=== PATIENT | male | born 1970 | race Caucasian/White ===

== ENCOUNTER 2019-10-06 08:47 | Outpatient (RCR) | payer MEDICAID, SELFPAY | END 2019-10-14 00:01 | LOC: LAB 08:47 | PROVIDERS: Family Provider Family Medicine; Visit Provider Podiatrist Foot & Ankle Surgery | DX: E11.9 Type 2 diabetes mellitus without complications (principal); Z79.899 Other long term (current) drug therapy | CPT/HCPCS: 80053; 80202; 85025 ==

== ENCOUNTER → 2019-10-14 00:01 | Outpatient (RCR) | payer MEDICAID, SELFPAY | LOC: WOUND 13:31 | PROVIDERS: Family Provider Family Medicine; Visit Provider Thoracic Surgery (Cardiothoracic Vascular Surgery) | DX: E11.621 Type 2 diabetes mellitus with foot ulcer (principal); L97.522 Non-pressure chronic ulcer of other part of left foot with fat layer exposed; I96 Gangrene, not elsewhere classified | CPT/HCPCS: 11042; 87070; 87075; 87205; G0463 ==

== ENCOUNTER → 2019-10-16 16:52 | Outpatient (BNVA) | payer MEDICAID, SELFPAY | PROVIDERS: Family Provider Family Medicine; PCP Family Medicine; Visit Provider Podiatrist Foot & Ankle Surgery | DX: Z89.412 Acquired absence of left great toe (principal) | CPT/HCPCS: 73620; 73630 ==

== ENCOUNTER 2019-10-20 13:19 | Day surgery (SDC) | payer MEDICAID, SELFPAY ==
[2019-10-18 12:07] VITALS: BMI 34.4
[2019-10-20] VITALS (9 sets, daily range): BP systolic 124–173; BP diastolic 53–88; PULSE 47–61; RESP 12–18; TEMP 36.4–36.6; O2SAT 95–100
--- NOTE | 2019-10-20 14:04 | P.PN_ITS ---
Pre-Anesthetic Assessment Pre-Anesthetic Assessment: Height/Weight: Height 1.78 m Weight 108.862 kg Proposed Procedure: Operation Date: 10/20/19 15:00 Proposed Procedures p Debridement Left Foot(Left) - Bubba Leal MD Was Beta Jeff taken within 24 hours: N/A Last intake: yesterday at 1000 Social: Social History: No alcohol and No tobacco Exam: Pre-Anes Outpt Exam: alert, oriented x 3, clear to auscultation bilaterally and regular rate & rhythm Airway: MP: 3 Additional comments: edentulous Pulmonary: Pulmonary: None reported CV/HEM: CV/HEM: HTN : : None reported Hepatic: Hepatic: Hepatitis (hx of hep c) GI: GI: None reported Metabolic: Metabolic: DM and Morbid obesity Comments: on insulin, BG 240 Neuropsych: Neuropsych: None reported Anesthetic Plan: ASA status: III Anesthesia: General Risk of > 500 ml blood loss (7ml/kg in children): No Other Pertinent Information: patient states he's dry heaved at noon, does still feel nauseated. States no other symptoms, no history of unusual food intake, but did have seafood last night for dinner. PFSH Anesthesia PFSH: Family History (Updated 10/17/19 @ 08:28 by Elizabeth Davidson LPN) Denies family history of Diabetes CAD (coronary artery disease) Clotting disorder Dementia Hyperlipidemia Psychiatric illness Chronic kidney disease (CKD) Suicide Anesthesia complication Bleeding disorder Family history of premature coronary artery disease Lung disease Cancer Hypertension Stroke Social History (Updated 10/16/19 @ 16:23 by Elizabeth Davidson LPN) Smoking and tobacco status: never smoked Second hand smoke exposure: No Smoking risk assessment/counseling performed?: Yes Alcohol intake: former Desire information about alcohol rehabilitation?: No Counseling given: No Desire information about substance/drug rehabilitation?: No Counseling given: No Adopted: No Caregiver/support person: Yes Lives independently: Yes Household members: spouse and significant other Housing: House Marital status: Life Partner Number of children: 0 Highest education level completed: High School Graduate service: Yes Current occupational status: retired Pets and animals: Yes History of recent travel: No Current gender identity: Male Yolande/Denominational: None Agree to transfusion: Yes Financial difficulty paying for basics: Somewhat Hard Data Anesthesia Cardiac Studies: No Data to Display
[2019-10-20 14:17] LABS: Glucose Point of Care 240 mg/dL (70-110)
[2019-10-20] MEDS: sodium chloride 0.9% 1,000 ML 30 ML IV (14:40)
[2019-10-20] MEDS: ondansetron 2 mg/ML SDV 2 mL 4 MG IVP (14:54)
--- NOTE | 2019-10-20 16:18 | PM.HPUD ---
H&P update H&P Update: DATE OF SURGERY/PROCEDURE: 10/20/19 DATE H&P PERFORMED: 10/14/19 H&P UPDATE INFORMATION: H&P completed within last 30 days and No changes to prior documentation PREOP DIAGNOSIS: Diabetic foot infection left foot status post left great toe amputation PRIMARY INDICATION FOR PROCEDURE: Cellulitis and dehiscence of left foot wound PLANNED PROCEDURE: Operation Date: 10/20/19 15:00 Proposed Procedures p Debridement Left Foot(Left) - Bubba Leal MD Conscious Sedation: PHYSICAL EXAM: alert, oriented x 3, clear to auscultation bilaterally, regular rate & rhythm and operative site marked OTHER PERTINENT EXAM FINDINGS: Awake and alert. Lungs clear bilaterally. Cardiovascular exam was unremarkable. Dehiscence of left great toe amputation with exposed left second metatarsal articular surface. Will plan for surgical debridement and wound VAC placement. Full H&P Medications/Allergies: Current Medications: Current Medications Generic Name Dose Route Start Last Admin Trade Name Freq PRN Reason Stop Dose Admin Sodium Chloride 1,000 mls @ 30 ml s/hr 10/20/19 13:45 10/20/19 14:40 Sodium Chloride 0.9% IV 10/21/19 13:44 30 mls/hr .Q24H ELISE Administration Perinent History: Family History: Family History (Updated 10/17/19 @ 08:28 by Elizabeth Davidson LPN) Denies family history of Diabetes CAD (coronary artery disease) Clotting disorder Dementia Hyperlipidemia Psychiatric illness Chronic kidney disease (CKD) Suicide Anesthesia complication Bleeding disorder Family history of premature coronary artery disease Lung disease Cancer Hypertension Stroke Social History: Social History Smoking and tobacco status: never smoked Second hand smoke exposure: No Smoking risk assessment/counseling performed?: Yes Alcohol intake: former Desire information about alcohol rehabilitation?: No Counseling given: No Desire information about substance/drug rehabilitation?: No Counseling given: No Adopted: No Caregiver/support person: Yes Lives independently: Yes Household members: spouse and significant other Housing: House Marital status: Life Partner Number of children: 0 Highest education level completed: High School Graduate service: Yes Current occupational status: retired Pets and animals: Yes History of recent travel: No Current gender identity: Male Yolande/Anglican: None Agree to transfusion: Yes Financial difficulty paying for basics: Somewhat Hard
[2019-10-20] MEDS: ceFAZolin 1,000 mg SDV 1000 MG IRRIGATION (17:24)
--- NOTE | 2019-10-20 17:28 | PM.OP ---
Operative Report Post-Operative Note: Date of procedure: 10/20/19 Preop Diagnosis: Left foot diabetic infection and dehiscence of left great toe amputation site Post-op diagnosis: same Procedure Done: Debridement and lavage of the left foot great toe amputation site with bone debridement. Tissue and bone cultures Placement of wound VAC Specimens removed/disposition: Soft tissue culture from left foot wound Bone culture from left first metatarsal articular head Surgeon: Bubba Leal Anesthesia: general Estimated blood loss (mL): 30 IV fluids (mL): 400 Complications: None Condition: stable Disposition: PACU Operative Report: Brief History: Mr. Rosales is a 49-year-old gentleman with longstanding diabetes mellitus and a past history for numerous foot infections bilaterally he has recent undergone debridement and subsequent left great toe amputation by Dr. Cali from podiatry. He separately had breakdown of this amputation area, as he ambulates quite freely. I had seen him originally in wound care clinic and after review by Dr. Mukherjee of his wound, he concurred that debridement was indicated without attempt at delayed primary closure. Details the risk of debridement were carefully and frankly discussed including the potential need for future surgeries and possible more major amputations. All questions were answered. Proper consents were reviewed and signed. Procedure: Mr. Rosales was taken operating room theater and underwent general endotracheal anesthesia. His entire left foot was sterilely prepped and draped. Initially sharp debridement was performed utilizing Metzenbaum scissors and #10 scalpel blade for adequate exposure of this dehisced amputation site with some tunneling extending medially and dorsally. The articular surface of the first metatarsal was clearly visible. After soft tissue sampling of the region, for culture, I then performed debridement of the articular head of the first metatarsal utilizing bone rongeur. Bone specimens were collected for culture as well. Cautery was utilized as minimal as possible. After careful debridement, irrigation was performed with a large volume of saline solution. Hemostasis was confirmed. Wound VAC dressing was then applied and connected to 125mmHg suction. He was awakened from anesthesia and extubated without difficulty. He tolerated procedure well. He was taken to the PACU in stable condition. He will be discharged to home with home health services which have been previously arranged, and will follow-up in wound care clinic Coding Level of Care Code Acute Heavy Equipment Plumbing Supervisor for Davina Whelan
[2019-10-20 18:27] LABS: Glucose Point of Care 214 mg/dL (70-110)
== END 2019-10-20 18:45 | disposition home or self-care (01) ==
PROVIDERS: Family Provider Family Medicine; PCP Family Medicine; Visit Provider Thoracic Surgery (Cardiothoracic Vascular Surgery)
PROC: (CPT 11044; principal; 2019-10-20 14:50)
DX: E11.621 Type 2 diabetes mellitus with foot ulcer (principal); I10 Essential (primary) hypertension; Z86.19 Personal history of other infectious and parasitic diseases; E66.01 Morbid (severe) obesity due to excess calories; Z68.34 Body mass index [BMI] 34.0-34.9, adult; Z79.4 Long term (current) use of insulin
CPT/HCPCS: 11044; 36415; 36416; 82962; 87070; 87077; 87176; 87186; 87205; 96374; J0330; J0690; J2405; J2704; J3010; J3490; J7030

== ENCOUNTER 2019-10-21 16:58 | Emergency (ER) | payer MEDICAID, SELFPAY ==
[2019-10-21 17:34] VITALS: BP 147/89; PULSE 68; RESP 18; TEMP 36.3; O2SAT 98; BMI 34.4
[2019-10-21 18:30] LABS: Basophils # 0.1 10^3/uL (0.0-0.1); Basophils % 0.9 %; Eosinophils # 0.2 10^3/uL (0.0-0.8); Eosinophils % 2.6 %; Hematocrit 40.6 % (42.0-52.0); Hemoglobin 13.3 g/dL (11.7-16.6); Lymphocytes # 1.7 10^3/uL (0.8-4.8); Lymphocytes % 21.4 %; Mean Corpuscular HGB Conc 32.8 g/dL (30.0-36.0); Mean Corpuscular Hemoglobin 26.5 pg (28.0-34.0); Mean Corpuscular Volume 80.9 fL (80-94); Mean Platelet Volume 10.5 fL (7.4-10.4); Monocytes # 0.4 10^3/uL (0.2-0.9); Monocytes % 4.6 %; Neutrophils # 5.5 10^3/uL (1.8-7.7); Neutrophils % 70.2 %; Nucleated Red Blood Cells % 0 %; Platelet Count 269 10^3/cmm (130-400); Red Blood Count 5.02 10^6/uL (4.1-5.3); Red Cell Distribution Width 13.8 % (12.1-15.1); White Blood Count 7.8 10^3/uL (4.0-10.0)
[2019-10-21 18:41] LABS: Alanine Aminotransferase 11 U/L (0-41); Albumin Level 4.5 g/dL (3.5-5.2); Alkaline Phosphatase 91 IU/L (40-130); Anion Gap 17.3 (5-19); Aspartate Amino Transferase 12 U/L (0-40); Blood Urea Nitrogen 13 mg/dL (6-20); Calcium 10.1 mg/Dl (8.6-10.0); Carbon Dioxide 26 mmol/L (22-29); Chloride 98 mmol/L (98-107); Globulin 3.8 g/dL (1.3-4.6); Glomerular Filtration Rate 70.6 mL/min (90-130); Glucose 247 mg/dL (74-109); Lipase 25 U/L (13-60); Potassium 4.3 mmol/L (3.5-5.1); Sodium 137 mmol/L (136-145); Total Bilirubin 0.4 mg/dL (0.15-1.2); Total Protein 8.3 g/dL (6.6-8.7)
--- NOTE | 2019-10-21 20:57 | XR_ITS ---
WS: [id number] ABDOMEN 1 VIEW(S) HISTORY: n/v COMPARISON: 01/04/2016 Mild increase in distention of the central small bowel loops. There is still air throughout the colon . No suspicious calcifications or masses. No bone abnormality. XR/XR KUB portable [id number] IMPRESSION: Suspect mild postoperative ileus versus very early and incomplete small bowel o bstruction. If symptoms persist recommend follow-up CT of the abdomen and pelvi s.
--- NOTE | 2019-10-21 20:59 | ED_ITS ---
HPI - General Adult General: Chief complaint: General Medical Stated complaint: post op problems Time Seen by Provider: 10/21/19 20:53 History of Present Illness: HPI narrative: Patient complains of nausea vomiting last 20 hours that has not kept anything at all down today he does have a PICC line in. Says that he is taking medication as prescribed. He states that Zofran is not working for him. Taking 8 tramadol a day +6-8 hydrocodone's complaint: n/v Onset (ago): hour(s) Relieving factors: none Exacerbating factors: none Associated symptoms: Reports nausea; Deny chest pain, dyspnea, headache(s), rash or vomiting Review of Systems Narrative: recent amputation left foot big toe, decreased BM's Const: Denies: fever, chills or body aches Eyes: Denies: change in vision or blurry vision ENMT: Denies: throat pain or nasal congestion Card: Denies: chest pain or shortness of breath on exertion Resp: Denies: shortness of breath, productive cough or non-productive cough GI: Reports: nausea and cramping; Denies: vomiting, vomiting blood, coffee grounds in vomit, difficulty swallowing, heartburn/indigestion, feeling full early, excessive passing of gas, painful bowel movements or rectal pain : Denies: difficulty urinating Musc: Denies: extremity pain Skin/Breast: Denies: rash Neuro: Denies: headache Psych: Denies: anxiety or depression North/Lymph: Denies: easy bruising PFSH ED PFSH: Statuses (acute, chronic, etc) shown below reflect problem list status as previously entered and may not be historically accurate Medical History (Updated 10/21/19 @ 22:42 by ANTONIO Tolbert) History of amputation of left great toe (Resolved) Wound dehiscence, surgical (Acute) Family History (Updated 10/17/19 @ 08:28 by Elizabeth Davidson LPN) Denies family history of Diabetes CAD (coronary artery disease) Clotting disorder Dementia Hyperlipidemia Psychiatric illness Chronic kidney disease (CKD) Suicide Anesthesia complication Bleeding disorder Family history of premature coronary artery disease Lung disease Cancer Hypertension Stroke Social History (Updated 10/16/19 @ 16:23 by Elizabeth Davidson LPN) Smoking and tobacco status: never smoked Second hand smoke exposure: No Smoking risk assessment/counseling performed?: Yes Alcohol intake: former Desire information about alcohol rehabilitation?: No Counseling given: No Desire information about substance/drug rehabilitation?: No Counseling given: No Adopted: No Caregiver/support person: Yes Lives independently: Yes Household members: spouse and significant other Housing: House Marital status: Life Partner Number of children: 0 Highest education level completed: High School Graduate service: Yes Current occupational status: retired Pets and animals: Yes History of recent travel: No Current gender identity: Male Yolande/Sabianist: None Agree to transfusion: Yes Financial difficulty paying for basics: Somewhat Hard Physical Exam Const: COMMON NORMALS: no apparent distress, average body habitus and oriented x3 HENMT: COMMON NORMALS: normocephalic HEAD & SCALP: normal to inspection and normocephalic FACE & SINUS: normal facial exam Eye: COMMON NORMALS: conjunctivae normal GENERAL EYE: normal appearance of both eyes CONJUNCTIVA: Yes conjunctivae normal Neck/C-Spine: COMMON NORMALS: no JVD Chest: COMMONS NORMALS: inspection of chest normal Resp: COMMON NORMALS: normal respiratory effort and clear to auscultation bilaterally AUSCULTATION: clear to auscultation bilaterally Cardio: COMMON NORMALS: no JVD, regular rate and regular rhythm RATE: regular rate RHYTHM: regular rhythm GI: COMMON NORMALS: normal to inspection, nondistended, normoactive bowel sounds Extremity: COMMON NORMALS: normal to inspection and full ROM NARRATIVE EXTREMITY EXAM: left foot with wound vac, LE is warm, not swollen Neuro: COMMON NORMALS: oriented x3 Course Vital Signs: Vital signs: Vital Signs Temperature 97.4 F L 10/21/19 17:34 Pulse Rate 61 10/21/19 22:21 Respiratory Rate 18 10/21/19 22:21 Blood Pressure 155/79 10/21/19 22:21 Pulse Oximetry 98 10/21/19 22:21 MDM - General Adult Lab Data: Labs: Lab Results 10/21/19 10/21/19 Range/Units 08:05 08:05 WBC 7.8 (4.0-10.0) 10^3/ uL RBC 5.02 (4.1-5.3) 10^6/u L Hgb 13.3 (11.7-16.6) g/dL Hct 40.6 L (42.0-52.0) % MCV 80.9 (80-94) fL MCH 26.5 L (28.0-34.0) pg MCHC 32.8 (30.0-36.0) g/dL RDW 13.8 (12.1-15.1) % Plt Count 269 (130-400) 10^3/c mm MPV 10.5 H (7.4-10.4) fL Neut % (Auto) 70.2 % Lymph % (Auto) 21.4 % [place] % (Auto) 4.6 % Eos % (Auto) 2.6 % Baso % (Auto) 0.9 % Neut # (Auto) 5.5 (1.8-7.7) 10^3/u L Lymph # (Auto) 1.7 (0.8-4.8) 10^3/u L [place] # (Auto) 0.4 (0.2-0.9) 10^3/u L Eos # (Auto) 0.2 (0.0-0.8) 10^3/u L Baso # (Auto) 0.1 (0.0-0.1) 10^3/u L Nucleated RBC % (a uto) 0 % Nucleated RBCs # 0.0 /100WBC Sodium 137 (136-145) mmol/L Potassium 4.3 (3.5-5.1) mmol/L Chloride 98 (98-107) mmol/L Carbon Dioxide 26 (22-29) mmol/L Anion Gap 17.3 (5-19) BUN 13 (6-20) mg/dL Creatinine 1.1 (0.7-1.2) mg/dL GFR Calculation 70.6 L (90-130) mL/min Glucose 247 H (74-109) mg/dL Calcium 10.1 H (8.6-10.0) mg/Dl Total Bilirubin 0.4 (0.15-1.2) mg/dL AST 12 (0-40) U/L ALT 11 (0-41) U/L Alkaline Phosphata se 91 (40-130) IU/L Total Protein 8.3 (6.6-8.7) g/dL Albumin 4.5 (3.5-5.2) g/dL Globulin 3.8 (1.3-4.6) g/dL Lipase 25 (13-60) U/L Discharge Plan Discharge Patient Disposition: Home, Self-Care Clinical Impression: Constipation due to opioid therapy Condition: Stable Prescriptions: New docusate sodium [Dulcolax Stool Softener (dss)] 100 mg capsule 100 mg PO TID Qty: 20 RF: 0 mineral oil [Fleet Mineral Oil] Enema 118 ml SC DAILY PRN (Reason: constipation) Qty: 135 RF: 0 No Action tramadol 50 mg tablet 50 mg PO Q4H PRN (Reason: Pain) RF: 0 aspirin [Adult Aspirin Regimen] 81 mg tablet,delayed release (DR/EC) 81 mg PO ONCE RF: 0 atorvastatin [Lipitor] 10 mg tablet 10 mg PO ONCE RF: 0 metformin 1,000 mg tablet extended release 24hr 1,000 mg PO BID RF: 0 hydrocodone-acetaminophen [[place]] 10-325 mg tablet 1 tab PO Q4H PRN (Reason: Pain) RF: 0 vancomycin 1.5 gram recon soln 1 gm IV Q12H RF: 0 ceftriaxone 1 gram recon soln 500 mg IM Q12H RF: 0 cefepime 2 mg IV DAILY RF: 0 Referrals: Bernard Samson MD [Primary Care Provider] - Discharge Diet: Full LIquid Discharge Activity: Increase activity as tolerated Patient Instructions: Constipation (ED) Activity Restrictions/Additional Instructions: Obtain mineral oil Fleet enemas [id number] at local store and also stool softeners and laxatives [id number] at local store. Drink plenty of water. Increase activity. Decrease pain medication usage. Follow-up with family doctor. Return here if problems worsen. Coding Level of Care Code ED Riding Coach for Davina Fwelizabeth Exam Problem Focused
[2019-10-21 21:01] VITALS: BP 126/76; PULSE 58; RESP 16; O2SAT 98
[2019-10-21] MEDS: ondansetron 2 mg/ML SDV 2 mL 8 MG IVP (21:18)
[2019-10-21] MEDS: sodium chloride 0.9% 1,000 ML 999 ML IV (21:18)
[2019-10-21 22:21] VITALS: BP 155/79; PULSE 61; RESP 18; O2SAT 98
[2019-10-21 22:48] VITALS: BP 126/91; PULSE 61; RESP 14; O2SAT 95
== END 2019-10-21 22:52 | disposition home or self-care (01) ==
PROVIDERS: Emergency Medicine; Emergency Provider Nurse Practitioner Family; Family Provider Family Medicine; PCP Family Medicine
DX: K59.03 Drug induced constipation (principal); T40.2X5A Adverse effect of other opioids, initial encounter; Z79.82 Long term (current) use of aspirin; Z79.84 Long term (current) use of oral hypoglycemic drugs
CPT/HCPCS: 36415; 74018; 80053; 83690; 85025; 96360; 96374; 96375; 99281; J2405; J7030

== ENCOUNTER 2019-10-27 12:19 | Outpatient (CLI) | payer MEDICAID, SELFPAY ==
[2019-10-27 13:12] LABS: Alanine Aminotransferase 10 U/L (0-41); Albumin Level 4.4 g/dL (3.5-5.2); Alkaline Phosphatase 82 IU/L (40-130); Aspartate Amino Transferase 12 U/L (0-40); Blood Urea Nitrogen 20 mg/dL (6-20); Calcium 9.9 mg/Dl (8.6-10.0); Carbon Dioxide 27 mmol/L (22-29); Chloride 100 mmol/L (98-107); Globulin 3.5 g/dL (1.3-4.6); Glomerular Filtration Rate 78.8 mL/min (90-130); Glucose 217 mg/dL (74-109); Sodium 138 mmol/L (136-145); Total Bilirubin 0.3 mg/dL (0.15-1.2); Total Protein 7.9 g/dL (6.6-8.7); Vancomycin Trough 13.7 ug/mL (10-15)
[2019-10-27 13:31] LABS: Basophils # 0.1 10^3/uL (0.0-0.1); Basophils % 1.8 %; Eosinophils # 0.6 10^3/uL (0.0-0.8); Eosinophils % 8.1 %; Hematocrit 41.1 % (42.0-52.0); Lymphocytes # 2.1 10^3/uL (0.8-4.8); Lymphocytes % 30.8 %; Mean Corpuscular HGB Conc 31.6 g/dL (30.0-36.0); Mean Corpuscular Hemoglobin 26.1 pg (28.0-34.0); Mean Corpuscular Volume 82.4 fL (80-94); Mean Platelet Volume 11.2 fL (7.4-10.4); Monocytes # 0.4 10^3/uL (0.2-0.9); Monocytes % 6.1 %; Neutrophils # 3.6 10^3/uL (1.8-7.7); Neutrophils % 52.9 %; Nucleated Red Blood Cells % 0 %; Platelet Count 264 10^3/cmm (130-400); Red Blood Count 4.99 10^6/uL (4.1-5.3); Red Cell Distribution Width 13.9 % (12.1-15.1); White Blood Count 6.8 10^3/uL (4.0-10.0)
== END 2019-10-27 12:20 | disposition home or self-care (01) ==
PROVIDERS: Family Provider Family Medicine; PCP Family Medicine; Visit Provider Podiatrist Foot & Ankle Surgery
DX: Z79.2 Long term (current) use of antibiotics (principal)
CPT/HCPCS: 80053; 80202; 85025

== ENCOUNTER 2019-11-03 12:35 | Outpatient (CLI) | payer MEDICAID, SELFPAY ==
[2019-11-03 13:12] LABS: Anion Gap 15.7 (5-19); Blood Urea Nitrogen 31 mg/dL (6-20); Calcium 9.5 mg/Dl (8.6-10.0); Carbon Dioxide 26 mmol/L (22-29); Chloride 98 mmol/L (98-107); Glomerular Filtration Rate 63.8 mL/min (90-130); Glucose 288 mg/dL (74-109); Potassium 4.7 mmol/L (3.5-5.1); Sodium 135 mmol/L (136-145); Vancomycin Trough 13.3 ug/mL (10-15)
[2019-11-03 13:39] LABS: Prealbumin 24.6 mg/dL (20-40)
== END 2019-11-03 12:36 | disposition home or self-care (01) ==
LOC: LAB 12:38
PROVIDERS: Family Provider Family Medicine; PCP Family Medicine; Visit Provider Nurse Practitioner Family
DX: M86.9 Osteomyelitis, unspecified (principal); E11.622 Type 2 diabetes mellitus with other skin ulcer
CPT/HCPCS: 80048; 80202; 84134

== ENCOUNTER → 2019-11-05 13:16 | Outpatient (BNVA) | payer MEDICAID, SELFPAY | PROVIDERS: Family Provider Family Medicine; PCP Family Medicine; Visit Provider Anesthesiology | DX: R53.82 Chronic fatigue, unspecified (principal); M25.511 Pain in right shoulder; M25.512 Pain in left shoulder; G62.9 Polyneuropathy, unspecified; G25.81 Restless legs syndrome; Z79.891 Long term (current) use of opiate analgesic | CPT/HCPCS: 99214 ==

== ENCOUNTER 2019-11-06 14:32 | Outpatient (CLI) | payer MEDICAID, SELFPAY ==
--- NOTE | 2019-11-06 15:59 | XRR_ITS ---
PROCEDURE INFORMATION: Exam: XR Chest, 2 Views Exam date and time: 11/06/2019 4:09 PM Age: 49 years old Clinical indication: Condition or disease; Lung condition and disease; Other: Bullous; Additional info: Bullous disease diabetes, respiratory disorder TECHNIQUE: Imaging protocol: XR of the chest Views: 2 views. COMPARISON: CR Chest 1 [place] [id number] 09/30/2019 9:25 AM FINDINGS: Tubes, catheters and devices: There is a left subclavian PICC line unchanged in position with tip in the superior vena cava. Lungs: Unremarkable. No consolidation. Pleural space: Unremarkable. No pleural effusion. No pneumothorax. Heart/Mediastinum: Unremarkable. No cardiomegaly. Bones/joints: Unremarkable. XR/XR chest 2V* [id number] IMPRESSION: 1. PICC line continues in good position. 2. The lungs are clear.
--- NOTE | 2019-11-06 16:02 | ECG_ITS ---
Measurements Intervals [place] Rate: 55 P: 6 WY: 179 QRS: -1 QRSD: 86 T: 42 QT: 413 QTc: 396 SINUS BRADYCARDIA Compared to ECG 11/22/2018 14:02:13 Sinus rhythm no longer present Electronically Signed On 11-07-2019 15:36:05 CAT CRACKER OPERATOR by Subhash Barkley M.D. [email or web address]
== END 2019-11-06 14:33 | disposition home or self-care (01) ==
LOC: RT 14:36
PROVIDERS: Family Provider Family Medicine; PCP Family Medicine; Visit Provider Thoracic Surgery (Cardiothoracic Vascular Surgery)
DX: Z13.6 Encounter for screening for cardiovascular disorders (principal); Z13.83 Encounter for screening for respiratory disorder NEC; E11.9 Type 2 diabetes mellitus without complications; Z95.828 Presence of other vascular implants and grafts
CPT/HCPCS: 71046; 93005

== ENCOUNTER 2019-11-10 06:00 | Outpatient (CLI) | payer MEDICAID, SELFPAY ==
[2019-11-10 12:25] LABS: Blood Urea Nitrogen 10 mg/dL (6-20); Calcium 9.6 mg/dL (8.5-10.5); Carbon Dioxide 26 mmol/L (22-29); Chloride 102 mmol/L (98-107); Glomerular Filtration Rate 70.6 mL/min (90-130); Glucose 211 mg/dL (74-109); Osmolality Calculated 288 mOsm/kg (285-295); Sodium 138 mmol/L (136-145)
== END 2019-11-10 06:01 | disposition home or self-care (01) ==
PROVIDERS: Family Provider Family Medicine; PCP Family Medicine; Visit Provider Family Medicine
DX: L03.116 Cellulitis of left lower limb (principal)
CPT/HCPCS: 80048; 80202

== ENCOUNTER 2019-11-12 07:52 | Outpatient (RCR) | payer MEDICAID, SELFPAY ==
[2019-10-20 10:26] LABS: Basophils # 0.1 10^3/uL (0.0-0.1); Basophils % 1.5 %; Eosinophils # 0.7 10^3/uL (0.0-0.8); Eosinophils % 11.4 %; Hemoglobin 12.5 g/dL (11.7-16.6); Lymphocytes # 1.9 10^3/uL (0.8-4.8); Mean Corpuscular HGB Conc 32.1 g/dL (30.0-36.0); Mean Corpuscular Hemoglobin 27.2 pg (28.0-34.0); Mean Platelet Volume 11.1 fL (7.4-10.4); Monocytes # 0.4 10^3/uL (0.2-0.9); Neutrophils # 2.9 10^3/uL (1.8-7.7); Neutrophils % 48.8 %; Nucleated Red Blood Cells % 0 %; Platelet Count 242 10^3/cmm (130-400); Red Blood Count 4.59 10^6/uL (4.1-5.3); Red Cell Distribution Width 14.2 % (12.1-15.1)
[2019-10-20 10:59] LABS: Alanine Aminotransferase 13 U/L (0-41); Albumin Level 4.2 g/dL (3.5-5.2); Alkaline Phosphatase 85 IU/L (40-130); Anion Gap 13.3 (5-19); Aspartate Amino Transferase 13 U/L (0-40); Blood Urea Nitrogen 17 mg/dL (6-20); Calcium 9.7 mg/Dl (8.6-10.0); Carbon Dioxide 30 mmol/L (22-29); Chloride 99 mmol/L (98-107); Globulin 3.7 g/dL (1.3-4.6); Glomerular Filtration Rate 70.6 mL/min (90-130); Glucose 246 mg/dL (74-109); Potassium 4.3 mmol/L (3.5-5.1); Sodium 138 mmol/L (136-145); Total Bilirubin 0.4 mg/dL (0.15-1.2); Total Protein 7.9 g/dL (6.6-8.7); Vancomycin Trough 17.4 ug/mL (10-15)
--- NOTE | 2019-11-10 16:27 | USCV_ITS ---
Braxton Rosales Age: 49 Gender: M : 1970 Exam Date: 11/10/2019 16:18 Ordering Phys: Violeta Aceves Technologist: Connie Mendoza [place] [facility] [place]: non healing ulcer RIGHT LEFT Brachial 147.00 mmHg Brachial mmHg Pressure (mmHg) Waveform Pressure (mmHg) Waveform FRONT OFFICE ASSISTANT 191.00 DPA 181.00 Ankle/Brachial Index 1.30 FINDINGS Normal resting VALERY on the left side Normal PVR waveform on the left side CONCLUSIONS No significant arterial obstruction, based on the above findings Dr Subhash Barkley MD FACC (Electronically Signed) Final Date: 11 November 2019 18:49 S
== END 2019-11-14 23:59 | disposition home or self-care (01) ==
LOC: WOUND 07:52
PROVIDERS: Podiatrist Foot & Ankle Surgery; Family Provider Family Medicine; PCP Family Medicine; Visit Provider Nurse Practitioner Family
DX: E11.621 Type 2 diabetes mellitus with foot ulcer (principal); L97.523 Non-pressure chronic ulcer of other part of left foot with necrosis of muscle; M86.671 Other chronic osteomyelitis, right ankle and foot
CPT/HCPCS: 11042; 11044; 80053; 80202; 85025; 93922; 97605; G0277; L3260

== ENCOUNTER 2019-12-08 08:15 | Emergency (ER) | payer MEDICAID, SELFPAY ==
[2019-12-08 08:20] VITALS: BP 161/87; PULSE 75; RESP 18; TEMP 36.4; O2SAT 97; BMI 35.9
--- NOTE | 2019-12-08 08:28 | USCV_ITS ---
Braxton Rosales Age: 49 Gender: M : 1970 Exam Date: 12/08/2019 08:46 Ordering Phys: Bubba Avelar Technologist: Carla Thompson Exam Location: [facility] – [place] Indication: RT LOWER LEG RED AND WARM. HISTORY: Rt lower leg is red and warm PROCEDURES: Venous duplex imaging was performed in only the right lower extremity. The following venous structures were evaluated: common femoral vein, profunda vein, proximal portion of the greater saphenous vein, superficial femoral vein, and the popliteal vein. In addition, the posterior tibial and peroneal trunk were evaluated. Serial compression, augmentation maneuvers, and spectral Doppler flow evaluation were performed. FINDINGS: No DVT seen in any vessel examined Lymph node seen rt groin area CONCLUSIONS No evidence of right lower extremity DVT. Enlarged lymph node R groin nonspecific but may be reactive measuring 4.1 x 1.1cm Jewel aPrdo MD (Electronically Signed) Final Date: 08 December 2019 09:22 S
--- NOTE | 2019-12-08 08:34 | W.ED.EXTPRO ---
HPI - Extremity Problem General: Chief complaint: Extremity Problem,Nontraumatic Stated complaint: poss blood clot rt leg Time Seen by Provider: 12/08/19 08:34 Source: patient Mode of arrival: ambulatory Limitations: no limitations History of Present Illness: HPI Narrative: 49-year-old male patient was sent here from the wound clinic for concerns of redness and swelling to the right lower extremity. Concern for DVT was noted. Patient states the pain is not that significant. Patient has no history of blood clots. Patient denies any fever chills nausea or vomiting. Patient does have chronic wound ulcers to bilateral feet and diabetes mellitus. Review of Systems General: Reports: 10 or more systems reviewed and unremarkable except in HPI and below Musc: Reports: other (redness swelling right lower extremity) PFSH ED PFSH: Social History Smoking and tobacco status: never smoked Second hand smoke exposure: No Alcohol intake: former Desire information about alcohol rehabilitation?: No Counseling given: No Adopted: No Caregiver/support person: Yes Lives independently: Yes Household members: spouse and significant other Housing: House Marital status: Life Partner Number of children: 0 Highest education level completed: High School Graduate service: Yes Current occupational status: retired Pets and animals: Yes History of recent travel: No Current gender identity: Male Yolande/Church: None Agree to transfusion: Yes Financial difficulty paying for basics: Somewhat Hard Physical Exam Const: COMMON NORMALS: no apparent distress and oriented x3 GENERAL APPEARANCE: cooperative HENMT: COMMON NORMALS: normocephalic, external ears normal, EAC's normal, TM's normal bilaterally and external nose normal HEAD & SCALP: normal to inspection and normocephalic FACE & SINUS: normal facial exam NOSE: external nose normal GENERAL EAR: hearing not grossly impaired EXTERNAL EAR: Yes external ears normal EXTERNAL AUDITORY CANAL: EAC's normal TYMPANIC MEMBRANE: TM's normal bilaterally MOUTH: oral and palatal mucosa normal THROAT: posterior oropharynx normal Eye: COMMON NORMALS: PERRL and EOMs intact bilaterally PUPIL: Yes PERRL Neck/C-Spine: COMMON NORMALS: full ROM and no lymphadenopathy Lymph: LYMPHATIC: no lymphedema noted Chest: COMMONS NORMALS: inspection of chest normal and palpation of chest normal Resp: COMMON NORMALS: normal respiratory effort and clear to auscultation bilaterally AUSCULTATION: clear to auscultation bilaterally Cardio: COMMON NORMALS: regular rate and regular rhythm RATE: regular rate RHYTHM: regular rhythm GI: COMMON NORMALS: normal to inspection, nondistended, normoactive bowel sounds and non-tender : COMMON NORMALS: Yes no CVA tenderness BLADDER/KIDNEY EXAM: Yes no CVA tenderness Back/Pelvis: COMMON NORMALS: no CVA tenderness and thoracic and lumbar spine normal to inspection Extremity: COMMON NORMALS: normal to inspection NARRATIVE EXTREMITY EXAM: redness right lower extremity GENERAL: Yes edema (bilateral lower legs) Neuro: COMMON NORMALS: oriented x3, moves all extremities and no focal motor deficits Psych: COMMON NORMALS: mental status grossly normal and cooperative Skin: COMMON NORMALS: no rashes or lesions noted GENERAL SKIN EXAM: no rashes or lesions noted Course Vital Signs: Vital signs: Vital Signs Temperature 97.5 F L 12/08/19 08:20 Pulse Rate 75 12/08/19 08:20 Respiratory Rate 18 12/08/19 08:20 Blood Pressure 161/87 12/08/19 08:20 Pulse Oximetry 97 12/08/19 08:20 MDM - Extremity (Nontraumatic) MDM Narrative: Medical decision making narrative: Patient comes in today with complaints of redness and tenderness to the right lower extremity. Patient was seen at wound care clinic in referred to the ER for evaluation of blood clot. Exam notes some erythema to the gaiter areas of the right lower extremity. Pulses are intact in lower extremity. Patient does have chronic wound ulcer to the great toe on the same extremity. Patient does have a history of osteomyelitis and previous debridement and digit amputations. Patient is diabetic. Differential diagnosis includes DVT, cellulitis, peripheral vascular disease. Ultrasound of the extremity noted no DVT. Notes some lymphadenopathy to the extremity. Will treat for cellulitis with Augmentin and Bactrim. Patient was recommended to continue care plan for wound ulcers wound care clinic and to follow-up as directed. Discharge Plan Discharge Patient Disposition: Home, Self-Care Clinical Impression: Cellulitis Qualifiers: Site of cellulitis: extremity Site of cellulitis of extremity: lower extremity Laterality: right Qualified Code(s): L03.115 - Cellulitis of right lower limb Condition: Stable Prescriptions: New Augmentin 875-125 mg tablet 1 tab PO BID Qty: 20 RF: 0 Bactrim DS 800-160 mg tablet 1 tab PO BID 10 Days Qty: 20 RF: 0 Discontinued vancomycin 1.5 gram recon soln 1 gm IV Q12H RF: 0 ceftriaxone 1 gram recon soln 500 mg IM Q12H RF: 0 amoxicillin-pot clavulanate 875-125 mg tablet RF: 0 cefepime 2 mg IV DAILY RF: 0 No Action nortriptyline 50 mg capsule 100 mg PO .HS 30 Days Qty: 60 RF: 1 pregabalin 300 mg capsule 300 mg PO BID 30 Days Qty: 60 RF: 1 ropinirole 1 mg tablet 1 mg PO QDAY 30 Days Qty: 30 RF: 0 hydrocodone-acetaminophen [[place]] 10-325 mg tablet 1 tab PO .5 TIMES PRN (Reason: Pain) 30 Days Qty: 150 RF: 0 tramadol 50 mg tablet 100 mg PO QID PRN (Reason: Pain) 30 Days Qty: 240 RF: 1 aspirin [Adult Aspirin Regimen] 81 mg tablet,delayed release (DR/EC) 81 mg PO ONCE RF: 0 atorvastatin [Lipitor] 10 mg tablet 10 mg PO ONCE RF: 0 metformin 1,000 mg tablet extended release 24hr 1,000 mg PO BID RF: 0 Lyrica 300 mg Capsule 300 mg PO BID RF: 0 Fleet Mineral Oil Enema 118 ml [place] DAILY PRN (Reason: constipation) Qty: 135 RF: 0 Dulcolax Stool Softener (dss) 100 mg capsule 100 mg PO TID Qty: 20 RF: 0 Discharge Orders: Discharge Order (Routine); Ordered 12/08/19 Ordered By: Bubba Avelar Referrals: Bernard Samson MD [Primary Care Provider] - Discharge Diet: Usual diet Discharge Activity: Resume usual activity Patient Instructions: Cellulitis (ED) Activity Restrictions/Additional Instructions: Continue with routine care Follow-up with wound care for continued treatment of foot ulcer Return to ER for high fever, or uncontrolled pain Coding Level of Care Code ED International Exchange Coordinator for Davina Whelan Exam Comprehensive
--- NOTE | 2019-12-08 08:43 | PC.NURSE ---
RLE is noted to be warm and swollen. Right great toe also noted to have a wound with purulent drainage noted. Patient reports popping a blister on the outside/bottom of his toe and has been dressing this with gauze and tape. Ultrasound is currently present at bedside.
[2019-12-08 09:13] VITALS: BP 131/65; PULSE 65; RESP 18; O2SAT 97
--- NOTE | 2019-12-08 09:15 | PC.NURSE ---
Soiled dressing changed on right great toe prior to discharge. Area rinsed with sterile saline, telfa applied and secured with sandy dressing and paper tape.
== END 2019-12-08 09:17 | disposition home or self-care (01) ==
PROVIDERS: Emergency Provider Nurse Practitioner Family; Family Provider Family Medicine; PCP Family Medicine
DX: L03.115 Cellulitis of right lower limb (principal); E11.621 Type 2 diabetes mellitus with foot ulcer; Z79.84 Long term (current) use of oral hypoglycemic drugs; L97.519 Non-pressure chronic ulcer of other part of right foot with unspecified severity; L97.529 Non-pressure chronic ulcer of other part of left foot with unspecified severity
CPT/HCPCS: 93971; 99183; 99211; 99281; 99283

== ENCOUNTER 2019-12-11 08:01 | Outpatient (RCR) | payer MEDICAID, SELFPAY | END 2019-12-13 23:59 | disposition home or self-care (01) | LOC: WOUND 08:01 | PROVIDERS: Family Provider Family Medicine; PCP Family Medicine; Visit Provider Nurse Practitioner Family | DX: M86.671 Other chronic osteomyelitis, right ankle and foot (principal); E11.621 Type 2 diabetes mellitus with foot ulcer; L97.512 Non-pressure chronic ulcer of other part of right foot with fat layer exposed; L97.522 Non-pressure chronic ulcer of other part of left foot with fat layer exposed | CPT/HCPCS: 11042; 87070; 87077; 87176; 87186; 87205; 99183; A6446; G0277; L3260 ==

== ENCOUNTER 2019-12-15 00:11 | Emergency (ER) | payer MEDICAID, SELFPAY ==
[2019-12-15] VITALS (21 sets, daily range): BP systolic 126–148; BP diastolic 75–77; PULSE 77–90; RESP 18–20; TEMP 37.7–38.5; O2SAT 86–94; BMI 35.9
--- NOTE | 2019-12-15 00:13 | XR_ITS ---
WS: [id number] XR chest 1V portable [id number] REASON FOR EXAM: cough/congestion FINDINGS: Alveolar infiltrate involving the lingula segment on the left. The heart and mediastinum were normal. The remaining lung mcfarlane appear to be adequately aerated. Comparison made November 06, 2019. XR/XR chest 1V portable [id number] IMPRESSION: Lingula pneumonia
[2019-12-15 01:03] LABS: Basophils # 0.1 10^3/uL (0.0-0.1); Eosinophils # 0.6 10^3/uL (0.0-0.8); Eosinophils % 9.4 %; Hematocrit 40.7 % (42.0-52.0); Hemoglobin 12.7 g/dL (11.7-16.6); Lymphocytes % 16.4 %; Mean Corpuscular HGB Conc 31.2 g/dL (30.0-36.0); Mean Corpuscular Hemoglobin 24.9 pg (28.0-34.0); Mean Corpuscular Volume 79.8 fL (80-94); Monocytes # 0.4 10^3/uL (0.2-0.9); Monocytes % 6.8 %; Neutrophils # 3.9 10^3/uL (1.8-7.7); Neutrophils % 66.1 %; Nucleated Red Blood Cells % 0 %; Platelet Count 231 10^3/cmm (130-400); Red Cell Distribution Width 14.7 % (12.1-15.1); White Blood Count 5.9 10^3/uL (4.0-10.0)
[2019-12-15 01:27] LABS: Alanine Aminotransferase 16 U/L (0-41); Albumin Level 4.1 g/dL (3.5-5.2); Alkaline Phosphatase 88 IU/L (40-130); Anion Gap 18.8 (5-19); Aspartate Amino Transferase 18 U/L (0-40); Blood Urea Nitrogen 32 mg/dL (6-20); Calcium 9.1 mg/dL (8.5-10.5); Carbon Dioxide 21 mmol/L (22-29); Chloride 96 mmol/L (98-107); Globulin 3.8 g/dL (1.3-4.6); Glomerular Filtration Rate 31.7 mL/min (90-130); Glucose 300 mg/dL (65-115); Potassium 4.8 mmol/L (3.5-5.1); Sodium 131 mmol/L (136-145); Total Bilirubin 0.2 mg/dL (0.15-1.2); Total Protein 7.9 g/dL (6.6-8.7)
[2019-12-15 01:38] LABS: Influenza A by IFA Negative (Negative); Influenza B by IFA Negative (Negative)
[2019-12-15] MEDS: acetaminophen 500 mg Tablet 1000 MG PO (01:54)
--- NOTE | 2019-12-15 02:48 | PC.NURSE ---
Introduced self to patient and initiated vital signs. Patient presents A&O x 4. NAD, ABCs intact, MAEW and agreeable to treatment. Respirations are even and unlabored. Pt states medications taken before coming to ER are n/a. Pt states that the chief complaint for the ER visit today is due to cough, runny nose and generalized body aches. Pt denies any vision disturbances or lightheadedness. Bed left in lowest position in semi-fowlers with side rails up.Reassured patient of needs and will continue to monitor.
--- NOTE | 2019-12-15 02:49 | W.ED.GENADLT ---
HPI - General Adult General: Chief complaint: Fever Stated complaint: FEVER/COUGH Time Seen by Provider: 12/15/19 02:23 Source: patient Mode of arrival: ambulatory Limitations: no limitations History of Present Illness: HPI narrative: Patient is a 49-year-old male who presents to ED today with complaints of fevers and a productive cough starting approximately 2 to 3 days ago. Patient reports he has not had any sick contacts. He is not having any chest pain or shortness of breath. Patient reports a small amount of nasal congestion. No abdominal pain, vomiting, diarrhea. Onset (ago): day(s) Associated symptoms: Deny chest pain, dyspnea, headache(s), nausea, rash, palpitations, syncope or vomiting Review of Systems Const: Reports: fever, chills and body aches; Denies: change in appetite, change in weight or fatigue Eyes: Denies: change in vision or blurry vision ENMT: Denies: throat pain, enlarged tonsils or painful swallowing Card: Denies: chest pain, palpitations, irregular heart rhythm, edema, lightheadedness, syncope or pre-syncope Resp: Reports: productive cough and chest congestion; Denies: shortness of breath or coughing up blood GI: Denies: abdominal pain, nausea, vomiting or diarrhea Musc: Denies: neck pain or back pain Skin/Breast: Denies: rash Neuro: Denies: headache, numbness in extremities, weakness in extremities or changes in sensation PFSH ED PFSH: Social History Smoking and tobacco status: never smoked Second hand smoke exposure: No Alcohol intake: former Desire information about alcohol rehabilitation?: No Counseling given: No Adopted: No Caregiver/support person: Yes Lives independently: Yes Household members: spouse and significant other Housing: House Marital status: Life Partner Number of children: 0 Highest education level completed: High School Graduate service: Yes Current occupational status: retired Pets and animals: Yes History of recent travel: No Current gender identity: Male Yolande/Oriental Orthodox: None Agree to transfusion: Yes Financial difficulty paying for basics: Somewhat Hard Physical Exam Const: COMMON NORMALS: no apparent distress, oriented x3, no limitations and alert NUTRITIONAL APPEARANCE: obese HENMT: COMMON NORMALS: normocephalic, head/scalp atraumatic, hearing grossly normal bilaterally, external ears normal, EAC's normal, TM's normal bilaterally, external nose normal, nasal mucous membranes and turbinates normal, moist oral mucous membranes, oropharynx normal, dentition normal and gingiva normal HEAD & SCALP: normocephalic and atraumatic NOSE: external nose normal and nasal mucous membranes and turbinates normal EXTERNAL EAR: Yes external ears normal EXTERNAL AUDITORY CANAL: EAC's normal TYMPANIC MEMBRANE: TM's normal bilaterally THROAT: posterior oropharynx normal, tonsils normal and uvula midline Eye: COMMON NORMALS: PERRL, EOMs intact bilaterally, conjunctivae normal and no scleral icterus CONJUNCTIVA: Yes conjunctivae normal PUPIL: Yes PERRL Neck/C-Spine: COMMON NORMALS: full ROM, no lymphadenopathy and no meningeal signs Resp: COMMON NORMALS: normal respiratory effort EFFORT & INSPECTION: Yes able to speak in complete sentences AUSCULTATION: bronchial breath sounds Cardio: COMMON NORMALS: regular rate and regular rhythm RATE: regular rate RHYTHM: regular rhythm GI: COMMON NORMALS: normal to inspection, nondistended, normoactive bowel sounds, soft to palpation and non-tender PALPATION: Yes soft Extremity: COMMON NORMALS: normal to inspection Neuro: COMMON NORMALS: oriented x3 SENSORIUM/ORIENTATION: Yes alert MENINGEAL SIGNS: Yes no meningeal signs Skin: COMMON NORMALS: no rashes or lesions noted GENERAL SKIN EXAM: no rashes or lesions noted Course Vital Signs: Vital signs: Vital Signs Temperature 100.1 F H 12/15/19 02:58 Pulse Rate 80 12/15/19 02:58 Respiratory Rate 18 12/15/19 02:58 Blood Pressure 136/76 12/15/19 02:58 Pulse Oximetry 93 12/15/19 02:58 MDM - General Adult MDM Narrative: Medical decision making narrative: Patient is not tachycardic or hypotensive. He did run a fever while in triage but this was treated successfully with Tylenol. Patient has no white count. He appears to have a left lower lobe pneumonia on his chest x-ray. Labs showing some mild elevation of his BUN and creatinine. We will go ahead and give patient a liter of fluids and IV Rocephin. He will be discharged home on doxycycline. Influenza swabs were negative. Recommend he follow-up with PCP regarding his kidney labs. Lab Data: Labs: Lab Results 12/15/19 12/15/19 12/15/19 Range/Units 00:32 00:53 00:53 WBC 5.9 (4.0-10.0) 10^3/ uL RBC 5.10 (4.1-5.3) 10^6/u L Hgb 12.7 (11.7-16.6) g/dL Hct 40.7 L (42.0-52.0) % MCV 79.8 L (80-94) fL MCH 24.9 L (28.0-34.0) pg MCHC 31.2 (30.0-36.0) g/dL RDW 14.7 (12.1-15.1) % Plt Count 231 (130-400) 10^3/c mm MPV 11.0 H (7.4-10.4) fL Neut % (Auto) 66.1 % Lymph % (Auto) 16.4 % [place] % (Auto) 6.8 % Eos % (Auto) 9.4 % Baso % (Auto) 1.0 % Neut # (Auto) 3.9 (1.8-7.7) 10^3/u L Lymph # (Auto) 1.0 (0.8-4.8) 10^3/u L [place] # (Auto) 0.4 (0.2-0.9) 10^3/u L Eos # (Auto) 0.6 (0.0-0.8) 10^3/u L Baso # (Auto) 0.1 (0.0-0.1) 10^3/u L Nucleated RBC % (a uto) 0 % Nucleated RBCs # 0.0 /100WBC Sodium 131 L (136-145) mmol/L Potassium 4.8 (3.5-5.1) mmol/L Chloride 96 L (98-107) mmol/L Carbon Dioxide 21 L (22-29) mmol/L Anion Gap 18.8 (5-19) BUN 32 H (6-20) mg/dL Creatinine 2.2 H (0.7-1.2) mg/dL GFR Calculation 31.7 L (90-130) mL/min Glucose 300 H (65-115) mg/dL Calcium 9.1 (8.5-10.5) mg/dL Total Bilirubin 0.2 (0.15-1.2) mg/dL AST 18 (0-40) U/L ALT 16 (0-41) U/L Alkaline Phosphata se 88 (40-130) IU/L Total Protein 7.9 (6.6-8.7) g/dL Albumin 4.1 (3.5-5.2) g/dL Globulin 3.8 (1.3-4.6) g/dL Influenza Type A A g Negative (Negative) POC Influenza B Ag Negative (Negative) Imaging Data^: CXR: My impression: LLL pneumonia Discharge Plan Discharge Patient Disposition: Home, Self-Care Clinical Impression: Pneumonia Qualifiers: Pneumonia type: due to unspecified organism Laterality: left Lung location: lower lobe of lung Qualified Code(s): J18.9 - Pneumonia, unspecified organism Condition: Stable Prescriptions: New albuterol sulfate 90 mcg/actuation aerosol powdr breath activated 2 inh INHALATION Q4H PRN (Reason: shortness of breath or wheezing) Qty: 1 RF: 0 doxycycline hyclate 100 mg tablet 100 mg PO BID 10 Days Qty: 20 RF: 0 No Action tramadol 50 mg tablet 100 mg PO QID PRN (Reason: Pain) 30 Days Qty: 240 RF: 1 aspirin [Adult Aspirin Regimen] 81 mg tablet,delayed release (DR/EC) 81 mg PO DAILY RF: 0 metformin 1,000 mg tablet extended release 24hr 500 mg PO BEDTIME RF: 0 Lasix 20 mg tablet 20 - 40 mg PO DAILY Qty: 60 RF: 4 pregabalin [Lyrica] 300 mg Capsule 300 mg PO BID RF: 0 sulfamethoxazole-trimethoprim [Bactrim DS] 800-160 mg tablet 1 tab PO BID 10 Days Qty: 20 RF: 0 ropinirole 1 mg tablet 1 mg PO DAILY RF: 0 hydrocodone-acetaminophen [[place]] 10-325 mg tablet See Rx Instructions .ROUTE .COMPLEX PRN (Reason: Pain) RF: 0 nortriptyline 50 mg capsule 100 mg PO BEDTIME RF: 0 pantoprazole 40 mg Tablet,Delayed Release (Dr/Ec) 40 mg PO DAILY RF: 0 rosuvastatin [Crestor] 20 mg Tablet 20 mg PO BEDTIME RF: 0 Levemir FlexTouch U-100 Insuln 100 unit/mL (3 mL) Insulin Pen 32 unit SUBCUT DAILY RF: 0 Victoza 3-Bjorn 0.6 mg/0.1 mL (18 mg/3 mL) Pen Injector 1.2 mg SUBCUT DAILY RF: 0 metoprolol succinate 50 mg Capsule,Sprinkle,Er 24hr 50 mg PO DAILY RF: 0 Discharge Orders: Discharge Order (Routine); Ordered 12/15/19 Ordered By: Tracey Smith Referrals: Bernard Samson MD [Primary Care Provider] - Discharge Diet: Usual diet Discharge Activity: Increase activity as tolerated Patient Instructions: Bacterial Pneumonia (ED) Activity Restrictions/Additional Instructions: As discussed follow up with primary care next week for re-evaluation. Coding Level of Care Code ED Saddle Mechanic for Davina Whelan
[2019-12-15] MEDS: cefTRIAXone 1,000 MG in sodium chloride 0.9% (plus) 50 ML 100 MG IV (02:56)
[2019-12-15] MEDS: sodium chloride 0.9% 1,000 ML 999 ML IV (02:57)
[2019-12-15] MEDS: ipratropium-albuterol 3 mL Neb INHALATION (03:25)
== END 2019-12-15 04:41 | disposition home or self-care (01) ==
PROVIDERS: Emergency Provider Physician Assistant; Family Provider Family Medicine; PCP Family Medicine
DX: J18.9 Pneumonia, unspecified organism (principal); E66.9 Obesity, unspecified; Z68.35 Body mass index [BMI] 35.0-35.9, adult
CPT/HCPCS: 71045; 80053; 85025; 87804; 94640; 96365; 99283; J0696; J7030

== ENCOUNTER → 2019-12-26 08:56 | Outpatient (BNVA) | payer MEDICAID, SELFPAY | PROVIDERS: Family Provider Family Medicine; PCP Family Medicine; Visit Provider Anesthesiology | DX: M25.512 Pain in left shoulder (principal); S49.90XA Unspecified injury of shoulder and upper arm, unspecified arm, initial encounter; X58.XXXA Exposure to other specified factors, initial encounter; Z79.891 Long term (current) use of opiate analgesic | CPT/HCPCS: 11042; 99214 ==

== ENCOUNTER → 2020-01-01 11:15 | Outpatient (BNVA) | payer MEDICAID, SELFPAY | PROVIDERS: Family Provider Family Medicine; PCP Family Medicine; Visit Provider Family Medicine | DX: E87.5 Hyperkalemia (principal) | CPT/HCPCS: 80048 ==

== ENCOUNTER 2020-01-13 13:06 | Outpatient (RCR) | payer MEDICAID, SELFPAY | END 2020-01-13 23:59 | disposition home or self-care (01) | LOC: WOUND 13:06 | PROVIDERS: Family Provider Family Medicine; PCP Family Medicine; Visit Provider Thoracic Surgery (Cardiothoracic Vascular Surgery) | DX: E11.621 Type 2 diabetes mellitus with foot ulcer (principal); L97.522 Non-pressure chronic ulcer of other part of left foot with fat layer exposed; L97.512 Non-pressure chronic ulcer of other part of right foot with fat layer exposed; M79.672 Pain in left foot; M79.671 Pain in right foot; M79.89 Other specified soft tissue disorders | CPT/HCPCS: 11042; 36415; 80053; 80061; 82044; 83036; 85025; 87070; 87077; 87176; 87186; 87205; 99183; G0277; L3260 ==

== ENCOUNTER 2020-01-13 14:06 | Outpatient (CLI) | payer MEDICAID, SELFPAY ==
--- NOTE | 2020-01-13 14:10 | XR_ITS ---
WS: [id number] FOOT RIGHT TECHNIQUE: 3 views of the right foot CLINICAL INFORMATION: PAIN/REDNESS/NON HEALING ULCER COMPARISON: November 26, 2018. FINDINGS: Soft tissue edema right first digit. Prior postoperative changes amputation first distal ph alanx. No definite evidence of osteomyelitis. Prior second digit and fifth metatarsal resection. XR/XR foot RT min 3V* [id number] IMPRESSION: 1. Soft tissue edema first digit distally. No definite evidence of acute osteo myelitis.
--- NOTE | 2020-01-13 14:10 | XR_ITS ---
WS: [id number] FOOT LEFT TECHNIQUE: 3 views of the left foot CLINICAL INFORMATION: PAIN/REDNESS/NON HEALING ULCER COMPARISON: October 16, 2019 FINDINGS: Soft tissue edema overlying the first metatarsal stump. Periosteal reaction with irregularity involving the distal first metatarsal is new since October 16, 2019 suspicious for osteomyelitis. Stable appearing fifth mid metatarsal amputation. Soft tissue nirav a lower leg and foot. Progressed soft tissue edema involving the second digit. No definite evidence of second digit osteomy elitis. XR/XR foot LT min 3V* [id number] IMPRESSION: 1. Periosteal reaction with irregularity involving the distal first metatarsal . Suspicious for osteomyelitis. 2. New soft tissue edema involving the second digit distally. No definite evid ence of osteomyelitis in this area.
== END 2020-01-13 14:07 | disposition home or self-care (01) ==
LOC: RADWPI 14:08
PROVIDERS: Family Provider Family Medicine; PCP Family Medicine; Visit Provider Thoracic Surgery (Cardiothoracic Vascular Surgery)
DX: L97.519 Non-pressure chronic ulcer of other part of right foot with unspecified severity (principal); L97.529 Non-pressure chronic ulcer of other part of left foot with unspecified severity
CPT/HCPCS: 11042; 73630

== ENCOUNTER 2020-01-15 19:19 | Emergency (ER) | payer MEDICAID, SELFPAY ==
[2020-01-15 19:41] VITALS: BP 151/120; PULSE 88; RESP 16; TEMP 37; O2SAT 97; BMI 34.4
--- NOTE | 2020-01-15 19:48 | W.ED.EXTPRO ---
HPI - Extremity Problem General: Chief complaint: Extremity Injury, Lower Stated complaint: l foot infection Time Seen by Provider: 01/15/20 19:34 Source: patient Mode of arrival: ambulatory Limitations: no limitations History of Present Illness: HPI Narrative: Patient is a 49-year-old chronic uncontrolled diabetic male who presents to ED today with complaints of a left foot infection. Patient states he has been following up with wound care for a left second toe infection. Patient has already had his great toe amputated. Patient just saw Dr. Leal 2 days ago at wound care for the toe and had x-rays performed. He has an MRI scheduled on Sunday with a repeat wound care appointment on Sunday. Patient states since he last saw Dr. Leal he feels the toe and foot are more swollen. He has not had any fevers. Has not noticed any worsening erythema. MD Complaint: extremity swelling Associated symptoms: Deny fever(s) Review of Systems Const: Denies: fever, chills, body aches, fatigue or malaise GI: Denies: nausea or vomiting Musc: Reports: extremity pain (L foot) Skin/Breast: Reports: redness and other (ulcer to L 2nd toe) Neuro: Reports: numbness in extremities (chronically due to peripheral neuropathy) PFS ED PFSH: Social History Smoking and tobacco status: never smoked Second hand smoke exposure: No Alcohol intake: former Desire information about alcohol rehabilitation?: No Counseling given: No Adopted: No Caregiver/support person: Yes Lives independently: Yes Household members: spouse and significant other Housing: House Marital status: Life Partner Number of children: 0 Highest education level completed: High School Graduate service: Yes Current occupational status: retired Pets and animals: Yes History of recent travel: No Current gender identity: Male Yolande/Nondenominational: None Agree to transfusion: Yes Financial difficulty paying for basics: Somewhat Hard Physical Exam Const: COMMON NORMALS: no apparent distress, oriented x3, no limitations and alert Resp: COMMON NORMALS: normal respiratory effort and clear to auscultation bilaterally AUSCULTATION: clear to auscultation bilaterally Cardio: COMMON NORMALS: regular rate and regular rhythm RATE: regular rate RHYTHM: regular rhythm Extremity: OTHER: pt has swelling throughout L 2nd digit and dorsum of foot; there is mild erythema present-this is pen marked and doesn't appear to be spreading; no streaking up his leg; pt has stage III ulcer to tip of 2nd toe w/o drainage or odor Neuro: COMMON NORMALS: oriented x3 SENSORIUM/ORIENTATION: Yes alert Skin: OTHER: see extremity assessment Course Vital Signs: Vital signs: Vital Signs Temperature 98.6 F 01/15/20 19:41 Pulse Rate 88 01/15/20 19:41 Respiratory Rate 18 01/15/20 20:01 Blood Pressure 151/120 01/15/20 19:41 Pulse Oximetry 97 01/15/20 19:41 MDM - Extremity (Nontraumatic) MDM Narrative: Medical decision making narrative: Patient is not tachycardic or febrile. He has no white count. His lactate is normal. Foot XR performed through wound care shows possible osteomyelitis of the first distal metatarsal. Again he has had this toe previously amputated. There is no redness or ulceration to this area clinically. Patient symptoms seem to be focused on the second toe currently and there is no evidence of osteo-on his x-ray. Wound culture performed through wound care grew MRSA sensitive to the Bactrim that patient is already taking as well as vancomycin (he was given IV dose of that here today). I will go ahead and have case management try to call over to wound care tomorrow to see if they can quickly evaluate patient to make sure he is stable to continue on his current plan with the MRI on Sunday. Lab Data: Labs: Lab Results 01/15/20 01/15/20 01/15/20 Range/Units 19:50 19:50 19:50 WBC 8.7 (4.0-10.0) 10^3/ uL RBC 4.65 (4.1-5.3) 10^6/u L Hgb 11.9 (11.7-16.6) g/dL Hct 37.5 L (42.0-52.0) % MCV 80.6 (80-94) fL MCH 25.6 L (28.0-34.0) pg MCHC 31.7 (30.0-36.0) g/dL RDW 16.1 H (12.1-15.1) % Plt Count 289 (130-400) 10^3/c mm MPV 10.6 H (7.4-10.4) fL Neut % (Auto) 69.8 % Lymph % (Auto) 11.7 % [place] % (Auto) 5.2 % Eos % (Auto) 12.5 % Baso % (Auto) 0.7 % Neut # (Auto) 6.1 (1.8-7.7) 10^3/u L Lymph # (Auto) 1.0 (0.8-4.8) 10^3/u L [place] # (Auto) 0.5 (0.2-0.9) 10^3/u L Eos # (Auto) 1.1 H (0.0-0.8) 10^3/u L Baso # (Auto) 0.1 (0.0-0.1) 10^3/u L Nucleated RBC % (a uto) 0 % Nucleated RBCs # 0.0 /100WBC Sodium 134 L (136-145) mmol/L Potassium 4.5 (3.5-5.1) mmol/L Chloride 98 (98-107) mmol/L Carbon Dioxide 24 (22-29) mmol/L Anion Gap 16.5 (5-19) BUN 16 (6-20) mg/dL Creatinine 1.4 H (0.7-1.2) mg/dL GFR Calculation 53.4 L (90-130) mL/min Glucose 308 H (65-115) mg/dL Calculated Osmolal ity 286 (285-295) mOsm/k g Lactate 1.4 (0.5-2.2) mmol/L Calcium 9.2 (8.5-10.5) mg/dL Total Bilirubin 0.3 (0.15-1.2) mg/dL AST 18 (0-40) U/L ALT 16 (0-41) U/L Alkaline Phosphata se 111 (40-130) IU/L C-Reactive Protein 39.2 H (0.0-4.9) mg/L Total Protein 8.0 (6.6-8.7) g/dL Albumin 4.1 (3.5-5.2) g/dL Globulin 3.9 (1.3-4.6) g/dL Discharge Plan Discharge Patient Disposition: Home, Self-Care Clinical Impression: Cellulitis of foot, left Diabetic ulcer of toe of left foot Qualifiers: Diabetes mellitus type: type 2 Non-pressure ulcer stage: with fat layer exposed Qualified Code(s): E11.621 - Type 2 diabetes mellitus with foot ulcer Condition: Stable Prescriptions: No Action Victoza 2-Bjorn 0.6 mg/0.1 mL (18 mg/3 mL) pen injector 1.8 mg SUBCUT DAILY RF: 0 aspirin [Adult Aspirin Regimen] 81 mg tablet,delayed release (DR/EC) 81 mg PO DAILY RF: 0 tramadol 50 mg tablet 100 mg PO QID PRN (Reason: Pain) 30 Days Qty: 240 RF: 1 nortriptyline 50 mg capsule 100 mg PO BEDTIME 30 Days Qty: 60 RF: 1 pregabalin [Lyrica] 300 mg capsule 300 mg PO BID 30 Days Qty: 60 RF: 1 ropinirole 1 mg tablet 1 mg PO DAILY 30 Days Qty: 30 RF: 1 hydrocodone-acetaminophen [[place]] 10-325 mg tablet 1 tab PO .5 TIMES DAILY PRN (Reason: Pain) 30 Days Qty: 150 RF: 0 Lasix 20 mg tablet 20 - 40 mg PO DAILY Qty: 60 RF: 4 insulin aspart U-100 [Novolog Flexpen U-100 Insulin] 100 unit/mL (3 mL) insulin pen 20 unit SUBCUT TID Qty: 15 RF: 0 lisinopril 40 mg tablet 40 mg PO DAILY Qty: 90 RF: 3 pantoprazole 40 mg Tablet,Delayed Release (Dr/Ec) 40 mg PO DAILY RF: 0 rosuvastatin [Crestor] 20 mg Tablet 20 mg PO BEDTIME RF: 0 Levemir FlexTouch U-100 Insuln 100 unit/mL (3 mL) Insulin Pen 32 unit SUBCUT DAILY RF: 0 metoprolol succinate 50 mg Capsule,Sprinkle,Er 24hr 50 mg PO DAILY RF: 0 potassium chloride 10 mEq tablet extended release 10 - 20 meq PO DAILY RF: 0 sulfamethoxazole-trimethoprim 800-160 mg tablet 1 tab PO BID RF: 0 Discharge Orders: Discharge Order (Routine); Ordered 01/15/20 Ordered By: Tracey Smith Referrals: Cindy Hsu DO [Primary Care Provider] - Bernard Samson MD [Family Provider] - Activity Restrictions/Additional Instructions: Continue taking the Bactrim as prescribed. Case management will try to see if wound care can see you briefly tomorrow for reevaluation. Over the weekend you need to return to the emergency department for worsening redness spreading up your leg or documented fevers of 100.4 or greater. Otherwise follow-up with your MRI on Sunday. Coding Level of Care Code ED Planer Setter for Chg Fwd Exam Expanded Problem Focused
[2020-01-15] MEDS: vancomycin 1,000 MG in sodium chloride 0.9% 250 ML 250 MG IV (20:00)
[2020-01-15 20:01] VITALS: RESP 18
[2020-01-15] MEDS: ondansetron 2 mg/ML SDV 2 mL 4 MG IVP (20:01)
[2020-01-15] MEDS: morphine 4 mg/mL SDV 1 mL IVP (20:01)
[2020-01-15 20:15] LABS: Basophils # 0.1 10^3/uL (0.0-0.1); Basophils % 0.7 %; Eosinophils # 1.1 10^3/uL (0.0-0.8); Eosinophils % 12.5 %; Hematocrit 37.5 % (42.0-52.0); Hemoglobin 11.9 g/dL (11.7-16.6); Lymphocytes % 11.7 %; Mean Corpuscular HGB Conc 31.7 g/dL (30.0-36.0); Mean Corpuscular Hemoglobin 25.6 pg (28.0-34.0); Mean Corpuscular Volume 80.6 fL (80-94); Mean Platelet Volume 10.6 fL (7.4-10.4); Monocytes # 0.5 10^3/uL (0.2-0.9); Monocytes % 5.2 %; Neutrophils # 6.1 10^3/uL (1.8-7.7); Neutrophils % 69.8 %; Nucleated Red Blood Cells % 0 %; Platelet Count 289 10^3/cmm (130-400); Red Blood Count 4.65 10^6/uL (4.1-5.3); Red Cell Distribution Width 16.1 % (12.1-15.1); White Blood Count 8.7 10^3/uL (4.0-10.0)
[2020-01-15 20:30] LABS: Alanine Aminotransferase 16 U/L (0-41); Albumin Level 4.1 g/dL (3.5-5.2); Alkaline Phosphatase 111 IU/L (40-130); Anion Gap 16.5 (5-19); Aspartate Amino Transferase 18 U/L (0-40); Blood Urea Nitrogen 16 mg/dL (6-20); C Reactive Protein 39.2 mg/L (0.0-4.9); Calcium 9.2 mg/dL (8.5-10.5); Carbon Dioxide 24 mmol/L (22-29); Chloride 98 mmol/L (98-107); Globulin 3.9 g/dL (1.3-4.6); Glomerular Filtration Rate 53.4 mL/min (90-130); Glucose 308 mg/dL (65-115); Osmolality Calculated 286 mOsm/kg (285-295); Potassium 4.5 mmol/L (3.5-5.1); Sodium 134 mmol/L (136-145); Total Bilirubin 0.3 mg/dL (0.15-1.2)
[2020-01-15 20:31] LABS: Lactate (Lactic Acid level) 1.4 mmol/L (0.5-2.2)
[2020-01-15 20:50] VITALS: BP 168/83; PULSE 88; RESP 18; O2SAT 96
[2020-01-15 21:33] VITALS: BP 153/87; PULSE 92; RESP 18; O2SAT 95
--- NOTE | 2020-01-16 08:26 | DCPLANNER ---
it portfolio manager had message to schedule a follow up appointment for patient with Wound Care. it portfolio manager called the Wound Care clinic, spoke with Soni. A follow up appointment is scheduled for Monday, January 20, 2020 at 10:[address] Leal. Clinic will call patient with appointment information.
--- NOTE | 2020-03-03 13:18 | DCPLANNER ---
Patient attended appointment scheduled for 01.20.20 with Wound Care.
== END 2020-01-15 21:34 | disposition home or self-care (01) ==
PROVIDERS: Emergency Provider Physician Assistant; Family Provider Family Medicine; PCP Family Medicine
DX: E11.621 Type 2 diabetes mellitus with foot ulcer (principal); L97.522 Non-pressure chronic ulcer of other part of left foot with fat layer exposed; L03.116 Cellulitis of left lower limb; Z89.412 Acquired absence of left great toe; E78.5 Hyperlipidemia, unspecified; I11.0 Hypertensive heart disease with heart failure; I50.9 Heart failure, unspecified; Z79.4 Long term (current) use of insulin; Z79.82 Long term (current) use of aspirin
CPT/HCPCS: 12345; 80053; 83605; 85025; 86140; 96365; 96366; 96375; 99282; 99284; J2270; J2405; J3370; J7050

== ENCOUNTER 2020-01-19 12:24 | Outpatient (CLI) | payer MEDICAID, SELFPAY ==
--- NOTE | 2020-01-19 | MR_ITS ---
WS: [id number] INDICATION: Osteomyelitis TECHNIQUE: MR of the left foot without and with gadolinium enhancement. FINDINGS: Comparison prior MRI September 26, 2019 Interval postoperative changes amputation of the first MTP joint. This is new from the prior MRI. Sof t tissue stump with edema. Diffuse edema involving the second digit. Diffuse soft tissue edema with e nhancement involving the second digit consistent with cellulitis. Replacement of the normal bone lisandro ow signal involving the second distal phalanx with enhancement involving the distal phalanx and dista l aspect proximal phalanx crossing the DIP joint. Findings consistent with osteomyelitis. Diffuse soft tissue edema and enhancement overlying the first metatarsal soft tissue stump. Small filippo unt of irregularity with edema and enhancement involving the distal cortical surface first metatarsal suspicious for osteomyelitis in this area, as seen on the prior radiograph. No drainable abscess or fluid collection. Normal third and fourth digits. MR/MR foot LT wo/w con [id number] IMPRESSION: 1. Evidence for osteomyelitis involving the second distal phalanx and distal a spect second proximal phalanx crossing the DIP joint. 2. Additional suspected osteomyelitis involving the distal first metatarsal at the distal cortical surface with slight irregularity and enhancement. This cor responds to findings on the prior radiograph. 3. Extensive soft tissue edema with enhancement involving the first metatarsal surgical stump extending into the second and third digits, worse in the second digit. 4. No drainable abscess or fluid collection. 5. Normal bone marrow edema involving the third and fourth digits. 6. Prior postoperative changes fifth mid metatarsal amputation.
== END 2020-01-19 12:25 | disposition home or self-care (01) ==
LOC: RADSHAW 12:25
PROVIDERS: Family Provider Family Medicine; PCP Family Medicine; Visit Provider Thoracic Surgery (Cardiothoracic Vascular Surgery)
DX: E11.621 Type 2 diabetes mellitus with foot ulcer (principal); L03.116 Cellulitis of left lower limb; S98.119 Complete traumatic amputation of unspecified great toe; X58.XXXA Exposure to other specified factors, initial encounter
CPT/HCPCS: 73720; A9579

== ENCOUNTER 2020-01-21 11:16 | Day surgery (SDC) | payer MEDICAID, SELFPAY ==
[2020-01-20 12:26] VITALS: BMI 34.7
[2020-01-21] VITALS (10 sets, daily range): BP systolic 124–162; BP diastolic 72–93; PULSE 57–71; RESP 16–22; TEMP 36.1–36.6; O2SAT 93–99
--- NOTE | 2020-01-21 11:37 | ANES.PREANE2 ---
Pre-Anesthetic Assessment Pre-Anesthetic Assessment: Height/Weight: Height 1.78 m Weight 109.769 kg Temp Pulse Resp BP Pulse Ox 97.2 F L 71 20 H 162/91 99 01/21/20 11:27 01/21/20 11:27 01/21/20 11:27 01/21/20 11:27 01/21/20 11:27 Preop Diagnosis: Left foot diabetic infection and dehiscence of left sec toe amputation site Proposed Procedure: Operation Date: 01/21/20 12:50 Proposed Procedures p Amputation Toe/s Left Second Toe(Left) - Bubba Leal MD Was Beta Jeff taken within 24 hours: Yes Last intake: Intake Last Liquid Date 01/20/20 Last Liquid Time 23:00 Last Solid Date 01/20/20 Last Solid Time 23:00 Exam: Pre-Anes Outpt Exam: alert, oriented x 3, clear to auscultation bilaterally and regular rate & rhythm Airway: Submandibular: WNL Cervical ROM: WNL MP: 1 Dentition: Full CV/HEM: CV/HEM: HTN (rx'd 2years) and PVD Hepatic: Hepatic: Hepatitis Comments: c dx'14, rx'd & cleared Metabolic: Metabolic: DM and Morbid obesity Comments: 6y, normally 144-177 Anesthetic Plan: ASA status: 3 Anesthesia: General PFSH Anesthesia PFSH: Medical History Amputated great toe CHF (congestive heart failure) Diverticulosis Dyslipidemia Encounter for long-term use of opiate analgesic Essential (primary) hypertension History of amputation of left great toe Shoulder pain Type 2 diabetes mellitus with other diabetic neurological complication Wound dehiscence, surgical Surgical History (Updated 01/21/20 @ 10:28 by Cindy Hsu DO) H/O hernia repair History of amputation of lesser toe of right foot Status post PICC central line placement Social History Smoking and tobacco status: never smoked Second hand smoke exposure: No Alcohol intake: former Desire information about alcohol rehabilitation?: No Counseling given: No Adopted: No Caregiver/support person: Yes Lives independently: Yes Household members: spouse and significant other Housing: House Marital status: Life Partner Number of children: 0 Highest education level completed: High School Graduate service: Yes Current occupational status: retired Pets and animals: Yes History of recent travel: No Current gender identity: Male Yolande/Roman Catholic: None Agree to transfusion: Yes Financial difficulty paying for basics: Somewhat Hard Data Anesthesia Cardiac Studies: No Data to Display
[2020-01-21] MEDS: sodium chloride 0.9% 1,000 ML 30 ML IV (11:48)
[2020-01-21] MEDS: metoprolol tartrate 50 mg Tablet PO (11:48)
[2020-01-21 11:54] LABS: Glucose Point of Care 197 mg/dL (70-110)
[2020-01-21] MEDS: ceFAZolin 1,000 mg SDV 1000 MG IRRIGATION (13:03)
--- NOTE | 2020-01-21 13:52 | SUR.PHASEI ---
Addendum entered by Ariana Meehan RN 01/21/20 13:53: ERROR: LEFT FOOT. Original Note: 1351 PATIENT TO PACU AT THIS TIME FROM OR. RR EVEN AND UNLABORED. PATIENT DENIES PAIN. DRESSING DRY AND INTACT TO RIGHT FOOT.
--- NOTE | 2020-01-21 14:07 | PM.OP ---
Operative Report Date of procedure: January 21, 2020 Pre-op Diagnosis: Left foot diabetic infection and osteomyelitis of left second toe Post-op diagnosis: same Procedure Done: Left second toe amputation with primary closure Specimens removed/disposition: Left second toe Surgeon: Bubba Leal Anesthesia: General Complications: None Condition: stable Disposition: PACU Brief History: 49-year-old severe diabetic gentleman with a several year history of diabetic foot infections with longstanding care in the wound care services at [facility] [place]. He had prior digital amputations of his feet bilaterally including recent right great toe amputation. He has now been discovered to have substantial destruction of the left second toe proximal and distal phalanx as well as in the distal portion of the first metatarsal head. Due to the severe destruction of the left second toe, we have recommended formal amputation. Previous cultures have grown MRSA. He has been started on vancomycin per protocol and has a left upper extremity PICC line in place. He is currently being evaluated for HBO. Details of risk the procedure were carefully and frankly discussed. Proper consents have been reviewed and signed. Procedure: Mr. Rosales was taken to the operating room theater after anesthesia preop and underwent general trach anesthesia. His entire left foot was sterilely prepped and draped. I initially made a elliptical incision around the base of the left second toe extended this deep through the digital arteries medial and lateral with good bleeding noted continued down to the metatarsal phalangeal space with the toe was amputated and sent to pathology. This point cautery was utilized very judiciously to control bleeding points particularly at the area of the digital arteries. The articular surface of the second metatarsal head was removed utilizing bone rongeur with good bleeding and the bone did appear to be quite viable at this level. Hemostasis was again controlled with cautery very carefully and then we utilized Surgicel on the rondure and surface after carefully irrigated with large amounts of antibiotic solution. At this point we did then perform a primary closure utilizing mattress sutures of 2-0 and 3-0 nylon. Sterile dressing was then applied. He is awakened from anesthesia, extubated, taken to the postoperative care unit in stable condition. There is some tension at this area, though hopefully approximation will be maintained to allow for primary closure. Home health services been contacted. He has been instructed to limit ambulation as much as possible. I will see him next week in wound care services.
--- NOTE | 2020-01-21 14:20 | SUR.PHASEI ---
1411 PATIENT TO OPS AT THIS TIME. A/OX3. RR EVEN AND UNLABORED. DRESSING TO LEFT FOOT, CDI.
[2020-01-21] MEDS: ondansetron 2 mg/ML SDV 2 mL 4 MG IVP ×2 (14:31→15:11)
[2020-01-21] MEDS: HYDROcodone-acetaminophen 10-325 mg Tablet 1 TAB PO (14:49)
[2020-01-21] MEDS: metoclopramide 5 mg/mL SDV 2 mL 10 MG IVP (16:35)
--- NOTE | 2020-01-21 18:45 | PC.NURSE ---
Pt's bandage changed right before discharge. Blood had drained through at toe area. it was c/d/i when discharged.
--- NOTE | 2020-01-29 07:00 | W.PM.OPSUD ---
Surgery/Procedure H&P Update DATE OF PROCEDURE: January 21, 2020 DATE H&P PERFORMED: 01/20/20 H&P UPDATE INFORMATION: I have reviewed H&P completed within last 30 days, I have examined patient prior to procedure and No changes to prior documentation PREOP DIAGNOSIS: Osteomyelitis of Left second toe PRIMARY INDICATION FOR PROCEDURE: ascending celllulitis with osteomyelistis of Left second toe PLANNED PROCEDURE: Operation Date: 01/21/20 12:50 Proposed Procedures p Amputation Toe/s Left Second Toe(Left) - Bubba Leal MD
== END 2020-01-21 16:40 | disposition home or self-care (01) ==
PROVIDERS: Family Provider Family Medicine; PCP Family Medicine; Visit Provider Thoracic Surgery (Cardiothoracic Vascular Surgery)
PROC: (CPT 28820; principal; 2020-01-21 12:30)
DX: E11.621 Type 2 diabetes mellitus with foot ulcer (principal); M86.8X8 Other osteomyelitis, other site; Z86.19 Personal history of other infectious and parasitic diseases; E66.01 Morbid (severe) obesity due to excess calories; Z68.34 Body mass index [BMI] 34.0-34.9, adult; I11.0 Hypertensive heart disease with heart failure; I50.9 Heart failure, unspecified; E78.5 Hyperlipidemia, unspecified; Z89.412 Acquired absence of left great toe
CPT/HCPCS: 28820; 12345; 36416; 82962; 88305; 96365; 96366; 96374; 96375; J0330; J0690; J2001; J2405; J2704; J2765; J3010; J3490; J7030

== ENCOUNTER 2020-01-21 22:33 | Outpatient (CLI) | payer MEDICAID, SELFPAY ==
[2020-01-21 22:51] LABS: Basophils # 0.1 10^3/uL (0.0-0.1); Eosinophils # 0.6 10^3/uL (0.0-0.8); Eosinophils % 8.6 %; Hematocrit 34.2 % (42.0-52.0); Hemoglobin 10.8 g/dL (11.7-16.6); Lymphocytes # 1.2 10^3/uL (0.8-4.8); Lymphocytes % 16.8 %; Mean Corpuscular HGB Conc 31.6 g/dL (30.0-36.0); Mean Corpuscular Hemoglobin 25.3 pg (28.0-34.0); Mean Corpuscular Volume 80.1 fL (80-94); Mean Platelet Volume 10.6 fL (7.4-10.4); Monocytes # 0.3 10^3/uL (0.2-0.9); Monocytes % 4.5 %; Neutrophils # 4.7 10^3/uL (1.8-7.7); Neutrophils % 68.8 %; Nucleated Red Blood Cells % 0 %; Platelet Count 364 10^3/cmm (130-400); Red Blood Count 4.27 10^6/uL (4.1-5.3); Red Cell Distribution Width 15.5 % (12.1-15.1); White Blood Count 6.9 10^3/uL (4.0-10.0)
[2020-01-21 23:09] LABS: Anion Gap 14.8 (5-19); Blood Urea Nitrogen 19 mg/dL (6-20); Calcium 9.1 mg/dL (8.5-10.5); Carbon Dioxide 25 mmol/L (22-29); Chloride 102 mmol/L (98-107); Glomerular Filtration Rate 78.8 mL/min (90-130); Glucose 304 mg/dL (65-115); Osmolality Calculated 292 mOsm/kg (285-295); Potassium 4.8 mmol/L (3.5-5.1); Sodium 137 mmol/L (136-145); Vancomycin Trough 17.8 ug/mL (10-15)
== END 2020-01-21 22:34 | disposition home or self-care (01) ==
LOC: LAB 22:34
PROVIDERS: PCP Family Medicine; Visit Provider Physician Assistant
DX: M86.9 Osteomyelitis, unspecified (principal)
CPT/HCPCS: 80048; 80202; 85025

== ENCOUNTER 2020-01-26 21:19 | Outpatient (CLI) | payer MEDICAID, SELFPAY ==
[2020-01-26 21:55] LABS: Blood Urea Nitrogen 20 mg/dL (6-20); Calcium 9.1 mg/dL (8.5-10.5); Carbon Dioxide 28 mmol/L (22-29); Chloride 100 mmol/L (98-107); Glomerular Filtration Rate 63.8 mL/min (90-130); Glucose 205 mg/dL (65-115); Osmolality Calculated 288 mOsm/kg (285-295); Sodium 138 mmol/L (136-145); Vancomycin Trough 22.9 ug/mL (10-15)
== END 2020-01-26 21:20 | disposition home or self-care (01) ==
LOC: LAB 21:22
PROVIDERS: Family Provider Family Medicine; PCP Family Medicine; Visit Provider Thoracic Surgery (Cardiothoracic Vascular Surgery)
DX: M86.9 Osteomyelitis, unspecified (principal); E87.5 Hyperkalemia
CPT/HCPCS: 11042; 80048; 80202; 99183; G0277

== ENCOUNTER 2020-02-02 11:19 | Outpatient (CLI) | payer MEDICAID, SELFPAY ==
[2020-02-02 12:33] LABS: Blood Urea Nitrogen 21 mg/dL (6-20); Calcium 9.1 mg/dL (8.5-10.5); Carbon Dioxide 29 mmol/L (22-29); Chloride 101 mmol/L (98-107); Glomerular Filtration Rate 70.6 mL/min (90-130); Glucose 163 mg/dL (65-115); Osmolality Calculated 288 mOsm/kg (285-295); Sodium 139 mmol/L (136-145); Vancomycin Trough 17.3 ug/mL (10-15)
== END 2020-02-02 11:20 | disposition home or self-care (01) ==
LOC: LAB 11:21
PROVIDERS: Family Provider Family Medicine; PCP Family Medicine; Visit Provider Thoracic Surgery (Cardiothoracic Vascular Surgery)
DX: M86.9 Osteomyelitis, unspecified (principal)
CPT/HCPCS: 80048; 80202

== ENCOUNTER 2020-02-12 13:09 | Outpatient (RCR) | payer MEDICAID, SELFPAY ==
--- NOTE | 2020-01-20 10:29 | XR_ITS ---
WS: [id number] CHEST XRAY TECHNIQUE: Portable chest. CLINICAL INFORMATION: picc placement COMPARISON: None. FINDINGS: Left PICC line with tip in the mid SVC in good position. No pneumothorax. Heart: Cardiomegaly Lungs: Lungs are clear. No consolidation or pleural effusion. Bones: Chronic right posterior rib fractures.. XR/XR chest 1V portable [id number] IMPRESSION: Left PICC line tip in the mid SVC in good position. No pneumothorax.
[2020-01-20 11:18] VITALS: BP 133/86; PULSE 72; RESP 17; TEMP 36.4; O2SAT 98
[2020-01-20 13:09] VITALS: BP 133/86; PULSE 72; RESP 17; TEMP 36.4; O2SAT 98
[2020-02-09 10:47] LABS: Basophils # 0.1 10^3/uL (0.0-0.1); Eosinophils # 0.5 10^3/uL (0.0-0.8); Eosinophils % 7.3 %; Hematocrit 39.8 % (42.0-52.0); Hemoglobin 12.6 g/dL (11.7-16.6); Lymphocytes % 28.2 %; Mean Corpuscular HGB Conc 31.7 g/dL (30.0-36.0); Mean Corpuscular Hemoglobin 25.1 pg (28.0-34.0); Mean Corpuscular Volume 79.3 fL (80-94); Mean Platelet Volume 11.1 fL (7.4-10.4); Monocytes # 0.5 10^3/uL (0.2-0.9); Monocytes % 6.8 %; Neutrophils # 4.1 10^3/uL (1.8-7.7); Neutrophils % 56.4 %; Nucleated Red Blood Cells % 0 %; Platelet Count 242 10^3/cmm (130-400); Red Blood Count 5.02 10^6/uL (4.1-5.3); Red Cell Distribution Width 15.6 % (12.1-15.1); White Blood Count 7.2 10^3/uL (4.0-10.0)
[2020-02-09 11:01] LABS: Anion Gap 15.9 (5-19); Blood Urea Nitrogen 20 mg/dL (6-20); Calcium 9.2 mg/dL (8.5-10.5); Carbon Dioxide 24 mmol/L (22-29); Chloride 100 mmol/L (98-107); Glomerular Filtration Rate 58.2 mL/min (90-130); Glucose 286 mg/dL (65-115); Osmolality Calculated 289 mOsm/kg (285-295); Potassium 3.9 mmol/L (3.5-5.1); Sodium 136 mmol/L (136-145); Vancomycin Trough 18.8 ug/mL (10-15)
== END 2020-02-12 23:59 | disposition home or self-care (01) ==
LOC: WOUND 13:09
PROVIDERS: Surgery; Family Provider Family Medicine; PCP Family Medicine; Visit Provider Nurse Practitioner Family
DX: Z45.2 Encounter for adjustment and management of vascular access device (principal); M86.672 Other chronic osteomyelitis, left ankle and foot; E11.621 Type 2 diabetes mellitus with foot ulcer; L97.512 Non-pressure chronic ulcer of other part of right foot with fat layer exposed; L97.523 Non-pressure chronic ulcer of other part of left foot with necrosis of muscle
CPT/HCPCS: 11042; 36569; 71045; 80048; 80202; 85025; 99183; G0277; J3370; J7050

== ENCOUNTER 2020-02-13 13:13 | Outpatient (CLI) | payer MEDICAID, SELFPAY | END 2020-02-13 13:14 | disposition home or self-care (01) | LOC: WOUND 02-16 13:32 | PROVIDERS: Family Provider Family Medicine; PCP Family Medicine; Visit Provider Surgery | DX: M86.672 Other chronic osteomyelitis, left ankle and foot (principal) | CPT/HCPCS: 99183 ==

== ENCOUNTER 2020-02-16 11:06 | Outpatient (CLI) | payer MEDICAID, SELFPAY ==
[2020-02-16 13:22] LABS: Anion Gap 14.6 (5-19); Blood Urea Nitrogen 32 mg/dL (6-20); Calcium 9.1 mg/dL (8.5-10.5); Carbon Dioxide 23 mmol/L (22-29); Chloride 104 mmol/L (98-107); Glomerular Filtration Rate 58.2 mL/min (90-130); Glucose 273 mg/dL (65-115); Osmolality Calculated 293 mOsm/kg (285-295); Potassium 3.6 mmol/L (3.5-5.1); Sodium 138 mmol/L (136-145)
== END 2020-02-16 11:07 | disposition home or self-care (01) ==
LOC: LAB 11:07
PROVIDERS: Family Provider Family Medicine; PCP Family Medicine; Visit Provider Family Medicine
DX: E11.9 Type 2 diabetes mellitus without complications (principal); M86.10 Other acute osteomyelitis, unspecified site; A49.02 Methicillin resistant Staphylococcus aureus infection, unspecified site
CPT/HCPCS: 80048; 80202

== ENCOUNTER 2020-02-16 13:10 | Outpatient (CLI) | payer MEDICAID, SELFPAY | END 2020-02-16 13:11 | disposition home or self-care (01) | LOC: WOUND 13:11 | PROVIDERS: Family Provider Family Medicine; PCP Family Medicine; Visit Provider Emergency Medicine | DX: M86.672 Other chronic osteomyelitis, left ankle and foot (principal); E11.621 Type 2 diabetes mellitus with foot ulcer; L97.522 Non-pressure chronic ulcer of other part of left foot with fat layer exposed; L97.512 Non-pressure chronic ulcer of other part of right foot with fat layer exposed | CPT/HCPCS: 99183 ==

== ENCOUNTER 2020-02-17 13:04 | Outpatient (CLI) | payer MEDICAID, SELFPAY | END 2020-02-17 13:05 | disposition home or self-care (01) | LOC: WOUND 13:05 | PROVIDERS: Family Provider Family Medicine; PCP Family Medicine; Visit Provider Thoracic Surgery (Cardiothoracic Vascular Surgery) | DX: E11.621 Type 2 diabetes mellitus with foot ulcer (principal); L97.512 Non-pressure chronic ulcer of other part of right foot with fat layer exposed; L97.522 Non-pressure chronic ulcer of other part of left foot with fat layer exposed | CPT/HCPCS: 11042; 99183; L3260 ==

== ENCOUNTER 2020-02-18 13:27 | Outpatient (CLI) | payer MEDICAID, SELFPAY | END 2020-02-18 13:28 | disposition home or self-care (01) | LOC: WOUND 13:28 | PROVIDERS: Family Provider Family Medicine; PCP Family Medicine; Visit Provider Nurse Practitioner Family | DX: M86.672 Other chronic osteomyelitis, left ankle and foot (principal) | CPT/HCPCS: G0277 ==

== ENCOUNTER 2020-02-19 13:20 | Outpatient (CLI) | payer MEDICAID, SELFPAY | END 2020-02-19 13:21 | disposition home or self-care (01) | LOC: WOUND 13:21 | PROVIDERS: Family Provider Family Medicine; PCP Family Medicine; Visit Provider Nurse Practitioner Family | DX: M86.672 Other chronic osteomyelitis, left ankle and foot (principal) | CPT/HCPCS: 99183 ==

== ENCOUNTER 2020-02-20 13:11 | Outpatient (CLI) | payer MEDICAID, SELFPAY | END 2020-02-20 13:12 | disposition home or self-care (01) | LOC: WOUND 13:11 | PROVIDERS: Family Provider Family Medicine; PCP Family Medicine; Visit Provider Surgery | DX: M86.672 Other chronic osteomyelitis, left ankle and foot (principal) | CPT/HCPCS: 99183 ==

== ENCOUNTER 2020-02-23 10:36 | Outpatient (CLI) | payer MEDICAID, SELFPAY ==
[2020-02-23 11:17] LABS: Blood Urea Nitrogen 19 mg/dL (6-20); Calcium 8.8 mg/dL (8.5-10.5); Carbon Dioxide 30 mmol/L (22-29); Chloride 100 mmol/L (98-107); Glomerular Filtration Rate 58.2 mL/min (90-130); Glucose 167 mg/dL (65-115); Osmolality Calculated 288 mOsm/kg (285-295); Sodium 139 mmol/L (136-145); Vancomycin Trough 16.1 ug/mL (10-15)
== END 2020-02-23 10:37 | disposition home or self-care (01) ==
PROVIDERS: Visit Provider Thoracic Surgery (Cardiothoracic Vascular Surgery)
DX: M86.10 Other acute osteomyelitis, unspecified site (principal)
CPT/HCPCS: 80048; 80202

== ENCOUNTER 2020-02-24 13:08 | Outpatient (CLI) | payer MEDICAID, SELFPAY | END 2020-02-24 13:09 | disposition home or self-care (01) | LOC: WOUND 13:09 | PROVIDERS: Visit Provider Thoracic Surgery (Cardiothoracic Vascular Surgery) | DX: E11.621 Type 2 diabetes mellitus with foot ulcer (principal); L97.512 Non-pressure chronic ulcer of other part of right foot with fat layer exposed; L97.529 Non-pressure chronic ulcer of other part of left foot with unspecified severity; M86.8X7 Other osteomyelitis, ankle and foot | CPT/HCPCS: 11042; 99183 ==

== ENCOUNTER 2020-02-25 13:04 | Outpatient (CLI) | payer MEDICAID, SELFPAY | END 2020-02-25 13:05 | disposition home or self-care (01) | LOC: WOUND 13:12 | PROVIDERS: Visit Provider Nurse Practitioner Family | DX: M86.672 Other chronic osteomyelitis, left ankle and foot (principal) | CPT/HCPCS: 99183 ==

== ENCOUNTER 2020-02-26 13:19 | Outpatient (CLI) | payer MEDICAID, SELFPAY | END 2020-02-26 13:20 | disposition home or self-care (01) | LOC: WOUND 13:20 | PROVIDERS: Visit Provider Nurse Practitioner Family | DX: M86.672 Other chronic osteomyelitis, left ankle and foot (principal) | CPT/HCPCS: 99183 ==

== ENCOUNTER 2020-03-01 09:54 | Outpatient (CLI) | payer MEDICAID, SELFPAY ==
[2020-03-01 10:14] LABS: Basophils # 0.1 10^3/uL (0.0-0.1); Basophils % 1.3 %; Eosinophils # 0.4 10^3/uL (0.0-0.8); Eosinophils % 5.8 %; Hematocrit 37.1 % (42.0-52.0); Hemoglobin 11.7 g/dL (11.7-16.6); Lymphocytes # 1.9 10^3/uL (0.8-4.8); Lymphocytes % 30.9 %; Mean Corpuscular HGB Conc 31.5 g/dL (30.0-36.0); Mean Corpuscular Hemoglobin 25.1 pg (28.0-34.0); Mean Corpuscular Volume 79.6 fL (80-94); Monocytes # 0.4 10^3/uL (0.2-0.9); Monocytes % 7.1 %; Neutrophils # 3.4 10^3/uL (1.8-7.7); Neutrophils % 54.6 %; Nucleated Red Blood Cells % 0 %; Platelet Count 248 10^3/cmm (130-400); Red Blood Count 4.66 10^6/uL (4.1-5.3); Red Cell Distribution Width 14.8 % (12.1-15.1); White Blood Count 6.2 10^3/uL (4.0-10.0)
[2020-03-01 10:34] LABS: Anion Gap 15.9 (5-19); Blood Urea Nitrogen 24 mg/dL (6-20); Calcium 9.5 mg/dL (8.5-10.5); Carbon Dioxide 26 mmol/L (22-29); Chloride 105 mmol/L (98-107); Glomerular Filtration Rate 63.8 mL/min (90-130); Glucose 207 mg/dL (65-115); Osmolality Calculated 299 mOsm/kg (285-295); Potassium 3.9 mmol/L (3.5-5.1); Sodium 143 mmol/L (136-145); Vancomycin Trough 14.7 ug/mL (10-15)
== END 2020-03-01 09:55 | disposition home or self-care (01) ==
LOC: LAB 09:55
PROVIDERS: Visit Provider Thoracic Surgery (Cardiothoracic Vascular Surgery)
DX: M86.172 Other acute osteomyelitis, left ankle and foot (principal)
CPT/HCPCS: 80048; 80202; 85025

== ENCOUNTER 2020-03-02 13:26 | Outpatient (CLI) | payer MEDICAID, SELFPAY | END 2020-03-02 13:27 | disposition home or self-care (01) | LOC: WOUND 13:26 | PROVIDERS: Visit Provider Thoracic Surgery (Cardiothoracic Vascular Surgery) | DX: E11.621 Type 2 diabetes mellitus with foot ulcer (principal); L97.512 Non-pressure chronic ulcer of other part of right foot with fat layer exposed; L97.522 Non-pressure chronic ulcer of other part of left foot with fat layer exposed; M86.672 Other chronic osteomyelitis, left ankle and foot | CPT/HCPCS: 11042; 99183 ==

== ENCOUNTER 2020-03-03 13:15 | Outpatient (CLI) | payer MEDICAID, SELFPAY | END 2020-03-03 13:16 | disposition home or self-care (01) | LOC: WOUND 13:15 | PROVIDERS: Visit Provider Nurse Practitioner Family | DX: E11.621 Type 2 diabetes mellitus with foot ulcer (principal); L97.512 Non-pressure chronic ulcer of other part of right foot with fat layer exposed; L97.522 Non-pressure chronic ulcer of other part of left foot with fat layer exposed | CPT/HCPCS: 99212 ==

== ENCOUNTER 2020-03-09 13:19 | Outpatient (CLI) | payer MEDICAID, SELFPAY | END 2020-03-09 13:20 | disposition home or self-care (01) | LOC: WOUND 13:20 | PROVIDERS: Visit Provider Thoracic Surgery (Cardiothoracic Vascular Surgery) | DX: E11.621 Type 2 diabetes mellitus with foot ulcer (principal); L97.512 Non-pressure chronic ulcer of other part of right foot with fat layer exposed; L97.522 Non-pressure chronic ulcer of other part of left foot with fat layer exposed | CPT/HCPCS: 11042 ==

== ENCOUNTER 2020-03-10 13:13 | Outpatient (CLI) | payer MEDICAID, SELFPAY | END 2020-03-10 13:14 | disposition home or self-care (01) | LOC: WOUND 13:13 | PROVIDERS: Visit Provider Nurse Practitioner Family | DX: M86.672 Other chronic osteomyelitis, left ankle and foot (principal) | CPT/HCPCS: 99183 ==

== ENCOUNTER 2020-03-10 14:49 | Outpatient (CLI) | payer MEDICAID, SELFPAY | END 2020-03-10 14:50 | disposition home or self-care (01) | LOC: WOUND 14:49 | PROVIDERS: Visit Provider Nurse Practitioner Family | DX: M86.672 Other chronic osteomyelitis, left ankle and foot (principal) ==

== ENCOUNTER 2020-03-11 13:05 | Outpatient (CLI) | payer MEDICAID, SELFPAY | END 2020-03-11 13:06 | disposition home or self-care (01) | LOC: WOUND 13:06 | PROVIDERS: Visit Provider Nurse Practitioner Family | DX: M86.672 Other chronic osteomyelitis, left ankle and foot (principal) | CPT/HCPCS: 99183; G0277 ==

== ENCOUNTER 2020-03-16 15:26 | Outpatient (CLI) | payer MEDICAID, SELFPAY | END 2020-03-16 15:27 | disposition home or self-care (01) | LOC: WOUND 15:28 | PROVIDERS: Visit Provider Thoracic Surgery (Cardiothoracic Vascular Surgery) | DX: E11.621 Type 2 diabetes mellitus with foot ulcer (principal); L97.512 Non-pressure chronic ulcer of other part of right foot with fat layer exposed; L97.522 Non-pressure chronic ulcer of other part of left foot with fat layer exposed | CPT/HCPCS: 11042; 87070; 87077; 87176; 87186; 87205; L3260 ==

== ENCOUNTER → 2020-03-19 09:55 | Outpatient (BNVA) | payer MEDICAID, SELFPAY | PROVIDERS: Visit Provider Family Medicine | DX: E11.49 Type 2 diabetes mellitus with other diabetic neurological complication (principal); I10 Essential (primary) hypertension | CPT/HCPCS: 80053; 83036 ==

== ENCOUNTER 2020-03-23 14:12 | Outpatient (RCR) | payer MEDICAID, SELFPAY | END 2020-04-13 23:59 | disposition home or self-care (01) | LOC: WOUND 14:12 | PROVIDERS: Visit Provider Thoracic Surgery (Cardiothoracic Vascular Surgery) | DX: E11.621 Type 2 diabetes mellitus with foot ulcer (principal); L97.512 Non-pressure chronic ulcer of other part of right foot with fat layer exposed; L97.522 Non-pressure chronic ulcer of other part of left foot with fat layer exposed | CPT/HCPCS: 11042 ==

== ENCOUNTER 2020-03-24 08:19 | Outpatient (CLI) | payer MEDICAID, SELFPAY | END 2020-03-24 08:20 | disposition home or self-care (01) | LOC: WOUND 08:21 | PROVIDERS: Visit Provider Thoracic Surgery (Cardiothoracic Vascular Surgery) | DX: M86.672 Other chronic osteomyelitis, left ankle and foot (principal) | CPT/HCPCS: 99183 ==

== ENCOUNTER 2020-03-30 09:59 | Outpatient (CLI) | payer MEDICAID, SELFPAY | END 2020-03-30 10:00 | disposition home or self-care (01) | LOC: WOUND 10:00 | PROVIDERS: Visit Provider Thoracic Surgery (Cardiothoracic Vascular Surgery) | DX: M86.672 Other chronic osteomyelitis, left ankle and foot (principal) | CPT/HCPCS: 99183 ==

== ENCOUNTER 2020-03-31 07:49 | Outpatient (CLI) | payer MEDICAID, SELFPAY | END 2020-03-31 07:50 | disposition home or self-care (01) | LOC: WOUND 07:50 | PROVIDERS: Visit Provider Thoracic Surgery (Cardiothoracic Vascular Surgery) | DX: E11.621 Type 2 diabetes mellitus with foot ulcer (principal); L97.512 Non-pressure chronic ulcer of other part of right foot with fat layer exposed; M86.672 Other chronic osteomyelitis, left ankle and foot | CPT/HCPCS: 11042; 99183 ==

== ENCOUNTER 2020-04-01 08:00 | Outpatient (CLI) | payer MEDICAID, SELFPAY | END 2020-04-01 08:01 | disposition home or self-care (01) | LOC: WOUND 08:00 | PROVIDERS: Visit Provider Nurse Practitioner Family | DX: M86.672 Other chronic osteomyelitis, left ankle and foot (principal) | CPT/HCPCS: 99183 ==

== ENCOUNTER 2020-04-02 08:08 | Outpatient (CLI) | payer MEDICAID, SELFPAY | END 2020-04-02 08:09 | disposition home or self-care (01) | LOC: WOUND 08:09 | PROVIDERS: Visit Provider Surgery | DX: M86.672 Other chronic osteomyelitis, left ankle and foot (principal) | CPT/HCPCS: 99183 ==

== ENCOUNTER 2020-04-06 08:36 | Outpatient (CLI) | payer MEDICAID, SELFPAY | END 2020-04-06 08:37 | disposition home or self-care (01) | LOC: WOUND 08:36 | PROVIDERS: Visit Provider Thoracic Surgery (Cardiothoracic Vascular Surgery) | DX: M86.672 Other chronic osteomyelitis, left ankle and foot (principal) | CPT/HCPCS: 99183 ==

== ENCOUNTER 2020-04-08 08:11 | Outpatient (CLI) | payer MEDICAID, SELFPAY | END 2020-04-08 08:12 | disposition home or self-care (01) | LOC: WOUND 08:12 | PROVIDERS: Visit Provider Nurse Practitioner Family | DX: M86.672 Other chronic osteomyelitis, left ankle and foot (principal) | CPT/HCPCS: 99183 ==

== ENCOUNTER 2020-04-13 08:40 | Outpatient (CLI) | payer MEDICAID, SELFPAY | END 2020-04-13 08:41 | disposition home or self-care (01) | LOC: WOUND 08:41 | PROVIDERS: Visit Provider Thoracic Surgery (Cardiothoracic Vascular Surgery) | DX: M86.672 Other chronic osteomyelitis, left ankle and foot (principal) | CPT/HCPCS: 99183 ==

== ENCOUNTER 2020-04-14 08:24 | Outpatient (CLI) | payer MEDICAID, SELFPAY | END 2020-04-14 08:25 | disposition home or self-care (01) | LOC: WOUND 08:24 | PROVIDERS: Visit Provider Thoracic Surgery (Cardiothoracic Vascular Surgery) | DX: M86.672 Other chronic osteomyelitis, left ankle and foot (principal); E11.621 Type 2 diabetes mellitus with foot ulcer; L97.512 Non-pressure chronic ulcer of other part of right foot with fat layer exposed | CPT/HCPCS: 11042; 99183 ==

== ENCOUNTER 2020-04-15 07:59 | Outpatient (CLI) | payer MEDICAID, SELFPAY | END 2020-04-15 08:00 | disposition home or self-care (01) | LOC: WOUND 08:00 | PROVIDERS: Visit Provider Nurse Practitioner Family | DX: M86.672 Other chronic osteomyelitis, left ankle and foot (principal) | CPT/HCPCS: 99183 ==

== ENCOUNTER 2020-04-20 13:17 | Outpatient (CLI) | payer MEDICAID, SELFPAY | END 2020-04-20 13:18 | disposition home or self-care (01) | LOC: WOUND 13:17 | PROVIDERS: Visit Provider Surgery | DX: M86.672 Other chronic osteomyelitis, left ankle and foot (principal) | CPT/HCPCS: 99183 ==

== ENCOUNTER 2020-04-21 10:03 | Outpatient (CLI) | payer MEDICAID, SELFPAY | END 2020-04-21 10:04 | disposition home or self-care (01) | LOC: WOUND 10:04 | PROVIDERS: Visit Provider Thoracic Surgery (Cardiothoracic Vascular Surgery) | DX: E11.621 Type 2 diabetes mellitus with foot ulcer (principal); L97.512 Non-pressure chronic ulcer of other part of right foot with fat layer exposed | CPT/HCPCS: 11042 ==

== ENCOUNTER → 2020-04-28 08:04 | Outpatient (BNVA) | payer MEDICAID, SELFPAY | PROVIDERS: PCP Family Medicine; Visit Provider Anesthesiology | DX: M25.512 Pain in left shoulder (principal); E11.40 Type 2 diabetes mellitus with diabetic neuropathy, unspecified; Z79.891 Long term (current) use of opiate analgesic | CPT/HCPCS: 99213; 99214 ==

== ENCOUNTER 2020-05-11 11:20 | Outpatient (CLI) | payer MEDICAID, SELFPAY | END 2020-05-11 11:21 | disposition home or self-care (01) | LOC: WOUND 11:22 | PROVIDERS: PCP Family Medicine; Visit Provider Thoracic Surgery (Cardiothoracic Vascular Surgery) | DX: E11.621 Type 2 diabetes mellitus with foot ulcer (principal); L97.512 Non-pressure chronic ulcer of other part of right foot with fat layer exposed | CPT/HCPCS: 11042; 87070; 87077; 87176; 87186; 87205; A6446 ==

== ENCOUNTER 2020-05-18 08:02 | Outpatient (CLI) | payer MEDICAID, SELFPAY ==
--- NOTE | 2020-05-18 08:07 | XR_ITS ---
WS: [id number] FOOT RIGHT TECHNIQUE: 3 views of the right foot CLINICAL INFORMATION: PAIN, REDNESS, NON-HEALING ULCER/CHECK FOR OSTEOMYELITIS COMPARISON: None. FINDINGS: Soft tissue edema right first digit distal phalanx. Prior postoperative changes amputation first dist al phalanx. No definite evidence of osteomyelitis. Prior second digit and fifth metatarsal resection. XR/XR foot RT min 3V* [id number] IMPRESSION: No definite evidence of osteomyelitis
== END 2020-05-18 08:03 | disposition home or self-care (01) ==
LOC: RADWPI 08:04
PROVIDERS: Family Provider Family Medicine; PCP Family Medicine; Visit Provider Thoracic Surgery (Cardiothoracic Vascular Surgery)
DX: M79.671 Pain in right foot (principal); L53.9 Erythematous condition, unspecified; L97.519 Non-pressure chronic ulcer of other part of right foot with unspecified severity
CPT/HCPCS: 73630

== ENCOUNTER 2020-05-18 13:17 | Outpatient (CLI) | payer MEDICAID, SELFPAY | END 2020-05-18 13:18 | disposition home or self-care (01) | LOC: WOUND 13:18 | PROVIDERS: Family Provider Family Medicine; PCP Family Medicine; Visit Provider Thoracic Surgery (Cardiothoracic Vascular Surgery) | DX: E11.621 Type 2 diabetes mellitus with foot ulcer (principal); L97.512 Non-pressure chronic ulcer of other part of right foot with fat layer exposed | CPT/HCPCS: 11042; L3260 ==

== ENCOUNTER 2020-05-25 13:20 | Outpatient (CLI) | payer MEDICAID, SELFPAY | END 2020-05-25 13:21 | disposition home or self-care (01) | LOC: WOUND 13:20 | PROVIDERS: Family Provider Family Medicine; PCP Family Medicine; Visit Provider Thoracic Surgery (Cardiothoracic Vascular Surgery) | DX: E11.621 Type 2 diabetes mellitus with foot ulcer (principal); L97.512 Non-pressure chronic ulcer of other part of right foot with fat layer exposed | CPT/HCPCS: 11042 ==

== ENCOUNTER 2020-06-01 13:32 | Outpatient (CLI) | payer MEDICAID, SELFPAY | END 2020-06-01 13:33 | disposition home or self-care (01) | LOC: WOUND 13:32 | PROVIDERS: Family Provider Family Medicine; PCP Family Medicine; Visit Provider Nurse Practitioner Family | DX: E11.621 Type 2 diabetes mellitus with foot ulcer (principal); L97.511 Non-pressure chronic ulcer of other part of right foot limited to breakdown of skin | CPT/HCPCS: 11042 ==

== ENCOUNTER 2020-06-08 10:51 | Outpatient (CLI) | payer MEDICAID, SELFPAY | END 2020-06-08 10:52 | disposition home or self-care (01) | LOC: WOUND 10:52 | PROVIDERS: Family Provider Family Medicine; PCP Family Medicine; Visit Provider Thoracic Surgery (Cardiothoracic Vascular Surgery) | DX: E11.621 Type 2 diabetes mellitus with foot ulcer (principal); L97.512 Non-pressure chronic ulcer of other part of right foot with fat layer exposed | CPT/HCPCS: 11042 ==

== ENCOUNTER 2020-06-15 09:40 | Outpatient (CLI) | payer MEDICAID, SELFPAY | END 2020-06-15 09:41 | disposition home or self-care (01) | LOC: WOUND 09:41 | PROVIDERS: Family Provider Family Medicine; PCP Family Medicine; Visit Provider Thoracic Surgery (Cardiothoracic Vascular Surgery) | DX: E11.621 Type 2 diabetes mellitus with foot ulcer (principal); L97.512 Non-pressure chronic ulcer of other part of right foot with fat layer exposed | CPT/HCPCS: 11042 ==

== ENCOUNTER 2020-06-17 14:55 | Outpatient (CLI) | payer MEDICAID, SELFPAY | END 2020-06-17 14:56 | disposition home or self-care (01) | LOC: WOUND 14:56 | PROVIDERS: Family Provider Family Medicine; PCP Family Medicine; Visit Provider Nurse Practitioner Family | DX: E11.621 Type 2 diabetes mellitus with foot ulcer (principal); L97.512 Non-pressure chronic ulcer of other part of right foot with fat layer exposed | CPT/HCPCS: 11042 ==

== ENCOUNTER → 2020-06-18 09:24 | Outpatient (BNVA) | payer MEDICAID, SELFPAY | PROVIDERS: Visit Provider Family Medicine | DX: E11.49 Type 2 diabetes mellitus with other diabetic neurological complication (principal) | CPT/HCPCS: 80053; 83036 ==

== ENCOUNTER 2020-06-22 09:56 | Outpatient (CLI) | payer MEDICAID, SELFPAY | END 2020-06-22 09:57 | disposition home or self-care (01) | LOC: WOUND 09:57 | PROVIDERS: Visit Provider Thoracic Surgery (Cardiothoracic Vascular Surgery) | DX: E11.621 Type 2 diabetes mellitus with foot ulcer (principal); L97.512 Non-pressure chronic ulcer of other part of right foot with fat layer exposed | CPT/HCPCS: 11042 ==

== ENCOUNTER 2020-06-25 13:15 | Outpatient (CLI) | payer MEDICAID, SELFPAY ==
--- NOTE | 2020-06-25 13:28 | MR_ITS ---
WS: [id number] MRI RIGHT FOOT with and without CONTRAST. COMPARISON: 06/26/2018 and recent radiograph 05/18/2020 Multiplanar, multisequence imaging is performed with and without contrast. Patient is status post resection distal first toe, resection second toe and resection majority of the fifth metatarsal and entire toe. Large soft tissue ulceration over the posterior lateral calcaneus with enhancement. Soft tissue ulcer ation extends to involve the periosteum of the posterior calcaneus with a small cortical defect. Soft tissue enhancement extends anterior posterior by 3.6 cm and transversely by 1.5 cm. Additional superficial soft tissue ulceration over the medial first toe measures 3.0 x 0.7 cm. Prior amputation of the distal first phalanx. Within the residual distal phalanx there is enhancement consi stent with osteomyelitis or recent surgical edema. Mild cellulitis surrounding the distal first toe. No enhancement in the remaining third or fourth toes. Second toe has been resected. MR/MR foot RT wo/w con [id number] IMPRESSION: 1. Soft tissue ulceration along the lateral calcaneus with enhancement of the adjacent periosteum consistent with cellulitis and early osteomyelitis. Finding s have progressed since 06/26/2018. 2. Very minimal enhancement in the remaining partially amputated distal phalan x of the first toe with adjacent cellulitis. If the amputation was recently the edema could be postsurgical. 3. No additional areas of osteomyelitis.
== END 2020-06-25 13:16 | disposition home or self-care (01) ==
LOC: RADWPI 13:16
PROVIDERS: Family Provider Family Medicine; PCP Family Medicine; Visit Provider Thoracic Surgery (Cardiothoracic Vascular Surgery)
DX: E11.621 Type 2 diabetes mellitus with foot ulcer (principal); L97.519 Non-pressure chronic ulcer of other part of right foot with unspecified severity; L03.031 Cellulitis of right toe; Z89.421 Acquired absence of other right toe(s); R60.0 Localized edema
CPT/HCPCS: 73720; A9579

== ENCOUNTER 2020-06-29 09:34 | Outpatient (CLI) | payer MEDICAID, SELFPAY | END 2020-06-29 09:35 | disposition home or self-care (01) | LOC: WOUND 09:35 | PROVIDERS: Family Provider Family Medicine; PCP Family Medicine; Visit Provider Thoracic Surgery (Cardiothoracic Vascular Surgery) | DX: E11.621 Type 2 diabetes mellitus with foot ulcer (principal); L97.512 Non-pressure chronic ulcer of other part of right foot with fat layer exposed | CPT/HCPCS: 15275; Q4186 ==

== ENCOUNTER 2020-07-06 08:59 | Outpatient (CLI) | payer MEDICAID, SELFPAY | END 2020-07-06 09:00 | disposition home or self-care (01) | LOC: WOUND 08:59 | PROVIDERS: Family Provider Family Medicine; PCP Family Medicine; Visit Provider Thoracic Surgery (Cardiothoracic Vascular Surgery) | DX: E11.621 Type 2 diabetes mellitus with foot ulcer (principal); L97.512 Non-pressure chronic ulcer of other part of right foot with fat layer exposed; M25.512 Pain in left shoulder; M25.50 Pain in unspecified joint; E11.40 Type 2 diabetes mellitus with diabetic neuropathy, unspecified; Z79.891 Long term (current) use of opiate analgesic | CPT/HCPCS: 15275; 99213; Q4187 ==

== ENCOUNTER 2020-07-13 08:57 | Outpatient (CLI) | payer MEDICAID, SELFPAY | END 2020-07-13 08:58 | disposition home or self-care (01) | LOC: WOUND 08:57 | PROVIDERS: Family Provider Family Medicine; PCP Family Medicine; Visit Provider Thoracic Surgery (Cardiothoracic Vascular Surgery) | DX: E11.621 Type 2 diabetes mellitus with foot ulcer (principal); L97.512 Non-pressure chronic ulcer of other part of right foot with fat layer exposed | CPT/HCPCS: 15275; L3260; Q4187 ==

== ENCOUNTER 2020-07-20 08:22 | Outpatient (CLI) | payer MEDICAID, SELFPAY | END 2020-07-20 08:23 | disposition home or self-care (01) | LOC: WOUND 08:23 | PROVIDERS: PCP Family Medicine; Visit Provider Thoracic Surgery (Cardiothoracic Vascular Surgery) | DX: E11.621 Type 2 diabetes mellitus with foot ulcer (principal); L97.512 Non-pressure chronic ulcer of other part of right foot with fat layer exposed | CPT/HCPCS: 15275; Q4187 ==

== ENCOUNTER 2020-07-27 08:17 | Outpatient (CLI) | payer MEDICAID, SELFPAY | END 2020-07-27 08:18 | disposition home or self-care (01) | LOC: WOUND 08:18 | PROVIDERS: Family Provider Family Medicine; PCP Family Medicine; Visit Provider Thoracic Surgery (Cardiothoracic Vascular Surgery) | DX: E11.621 Type 2 diabetes mellitus with foot ulcer (principal); L97.512 Non-pressure chronic ulcer of other part of right foot with fat layer exposed | CPT/HCPCS: 11042 ==

== ENCOUNTER 2020-08-03 08:09 | Outpatient (CLI) | payer MEDICAID, SELFPAY | END 2020-08-03 08:10 | disposition home or self-care (01) | LOC: WOUND 08:10 | PROVIDERS: Family Provider Family Medicine; PCP Family Medicine; Visit Provider Thoracic Surgery (Cardiothoracic Vascular Surgery) | DX: E11.621 Type 2 diabetes mellitus with foot ulcer (principal); L97.512 Non-pressure chronic ulcer of other part of right foot with fat layer exposed | CPT/HCPCS: 11042; L3260 ==

== ENCOUNTER 2020-08-10 08:12 | Outpatient (CLI) | payer MEDICAID, SELFPAY | END 2020-08-10 08:13 | disposition home or self-care (01) | LOC: WOUND 08:13 | PROVIDERS: Family Provider Family Medicine; PCP Family Medicine; Visit Provider Thoracic Surgery (Cardiothoracic Vascular Surgery) | DX: E11.621 Type 2 diabetes mellitus with foot ulcer (principal); L97.512 Non-pressure chronic ulcer of other part of right foot with fat layer exposed | CPT/HCPCS: 11042 ==

== ENCOUNTER 2020-08-17 08:23 | Outpatient (CLI) | payer MEDICAID, SELFPAY | END 2020-08-17 08:24 | disposition home or self-care (01) | LOC: WOUND 08:27 | PROVIDERS: Family Provider Family Medicine; PCP Family Medicine; Visit Provider Thoracic Surgery (Cardiothoracic Vascular Surgery) | DX: E11.621 Type 2 diabetes mellitus with foot ulcer (principal); L97.512 Non-pressure chronic ulcer of other part of right foot with fat layer exposed | CPT/HCPCS: 11042 ==

== ENCOUNTER 2020-08-24 08:19 | Outpatient (CLI) | payer MEDICAID, SELFPAY | END 2020-08-24 08:20 | disposition home or self-care (01) | LOC: WOUND 08:19 | PROVIDERS: Family Provider Family Medicine; PCP Family Medicine; Visit Provider Thoracic Surgery (Cardiothoracic Vascular Surgery) | DX: E11.621 Type 2 diabetes mellitus with foot ulcer (principal); L97.512 Non-pressure chronic ulcer of other part of right foot with fat layer exposed; M86.672 Other chronic osteomyelitis, left ankle and foot | CPT/HCPCS: 11042 ==

== ENCOUNTER 2020-08-26 13:16 | Outpatient (CLI) | payer MEDICAID, SELFPAY | END 2020-08-26 13:17 | disposition home or self-care (01) | LOC: WOUND 13:16 | PROVIDERS: Family Provider Family Medicine; PCP Family Medicine; Visit Provider Thoracic Surgery (Cardiothoracic Vascular Surgery) | DX: E11.621 Type 2 diabetes mellitus with foot ulcer (principal); L97.512 Non-pressure chronic ulcer of other part of right foot with fat layer exposed | CPT/HCPCS: 97597 ==

== ENCOUNTER → 2020-08-27 10:22 | Outpatient (BNVA) | payer MEDICAID, SELFPAY | PROVIDERS: Family Provider Family Medicine; PCP Family Medicine; Visit Provider Family Medicine | DX: I10 Essential (primary) hypertension (principal) | CPT/HCPCS: 80048 ==

== ENCOUNTER 2020-08-28 11:19 | Emergency (ER) | payer MEDICAID, SELFPAY ==
[2020-08-28 11:27] VITALS: BP 136/94; PULSE 70; RESP 16; TEMP 36.4; O2SAT 98; BMI 35.9
--- NOTE | 2020-08-28 11:31 | ED_ITS ---
HPI - General Adult General: Chief complaint: Extremity Problem,Nontraumatic Stated complaint: RIGHT LEG ISSUE WITH CAST? Time Seen by Provider: 08/28/20 11:26 Source: patient Mode of arrival: ambulatory Limitations: no limitations History of Present Illness: HPI narrative: 50-year-old male who has a chronic wound to his right toe. Has been treated in wound care and had a cast placed on his leg . He states the cast is digging into his leg and he wants it removed. States it is causing pain and discomfort and is worried he is going ulcer on his calf warts rubbing them. Denies any worsening improving factors. Associated symptoms: Deny chest pain, dyspnea, headache(s), nausea, rash or vomiting Review of Systems Const: Denies: fever(s), chills, body aches or change in appetite Eyes: Denies: blurry vision or eye discomfort ENMT: Denies: throat pain or dental pain Card: Denies: chest pain Resp: Denies: dyspnea GI: Denies: abdominal pain, nausea, vomiting or diarrhea : Denies: dysuria Musc: Denies: neck pain or back pain Skin/Breast: Denies: rash Neuro: Denies: headache(s) Psych: Denies: depression North/Lymph: Denies: easy bruising All/Imm: Denies: urticaria PFSH ED PFSH: Medical History (Updated 08/28/20 @ 11:33 by Aguilar Hilliard MD) Amputated great toe CHF (congestive heart failure) Diverticulosis Dyslipidemia Encounter for long-term use of opiate analgesic Essential (primary) hypertension History of amputation of left great toe Shoulder pain Type 2 diabetes mellitus with other diabetic neurological complication Wound dehiscence, surgical Surgical History H/O hernia repair History of amputation of lesser toe of right foot Hx of amputation of lesser toe Left foot big toe and second toe 01/21/[address] [facility] [place] Dr. Leal Status post PICC central line placement Family History Mother Cancer Denies family history of Diabetes CAD (coronary artery disease) Clotting disorder Dementia Hyperlipidemia Psychiatric illness Chronic kidney disease (CKD) Suicide Anesthesia complication Bleeding disorder Family history of premature coronary artery disease Lung disease Hypertension Stroke Social History Smoking and tobacco status: never smoked Second hand smoke exposure: No Alcohol intake: former Desire information about alcohol rehabilitation?: No Counseling given: No Adopted: No Caregiver/support person: Yes Lives independently: Yes Household members: spouse and significant other Housing: House Marital status: Life Partner Number of children: 0 Highest education level completed: High School Graduate service: Yes Current occupational status: retired Pets and animals: Yes History of recent travel: No Current gender identity: Male Yolande/Rastafari: None Agree to transfusion: Yes Financial difficulty paying for basics: Somewhat Hard Physical Exam Const: COMMON NORMALS: no acute distress, patient oriented x3 and healthy мария earing HENMT: COMMON NORMALS: normocephalic and atraumatic HEAD & SCALP: normocephalic and atraumatic Eye: COMMON NORMALS: Equal, round and reactive pupils present and EOMs intact bilaterally PUPIL: Yes Equal, round and reactive pupils present Neck/C-Spine: COMMON NORMALS: full ROM and supple Chest: COMMONS NORMALS: normal inspection of the chest and normal palpation of entire chest wall Resp: COMMON NORMALS: normal respiratory effort, No retractions, No use of accessory muscles and clear to auscultation bilaterally AUSCULTATION: clear to auscultation bilaterally Cardio: COMMON NORMALS: regular rate, regular rhythm and No murmurs present (Cardio) RATE: regular rate RHYTHM: regular rhythm GI: COMMON NORMALS: Normal to inspection, nondistended, normoactive bowel sounds present, Soft to palpation, non-tender and no masses PALPATION: Yes Soft to palpation Extremity: COMMON NORMALS: normal to inspection and full ROM NARRATIVE EXTREMITY EXAM: Cast in place to right leg Neuro: COMMON NORMALS: patient oriented x3, moves all extremities and no focal motor deficits Psych: COMMON NORMALS: mental status grossly normal, Normal thought process present and cooperative THOUGHT PROCESS: Normal thought process present Skin: COMMON NORMALS: no rashes or lesions noted and no wounds GENERAL SKIN EXAM: no rashes or lesions noted Course Vital Signs: Vital signs: Vital Signs Temperature 97.5 F L 08/28/20 11:27 Pulse Rate 70 08/28/20 11:27 Respiratory Rate 16 08/28/20 11:27 Blood Pressure 136/94 08/28/20 11:27 Pulse Oximetry 98 11/14/20 11:27 MDM - General Adult MDM Narrative: Medical decision making narrative: Patient presents here with cast discomfort once his cast removed. I did offer this to remove a portion of it but he states he wants the whole thing removed. I did remove it and placed him in a splint. He is stable for discharge and is to follow-up with wound care next week as scheduled. Discharge Plan Discharge Patient Disposition: Home Clinical Impression: Cast discomfort, Cast removal Condition: Stable Prescriptions: No Action (DME) Articulating AFO See Rx Instructions .ROUTE .MEDSUPPLY Qty: 1 RF: 0 amlodipine [Norvasc] 2.5 mg tablet 2.5 mg PO .po q hs Qty: 30 RF: 0 sildenafil [Viagra] 100 mg tablet 100 mg PO DAILY PRN (Reason: sexual activity) Qty: 9 RF: 0 ropinirole 1 mg tablet 1 mg PO DAILY 30 Days Qty: 30 RF: 1 nortriptyline 50 mg capsule 100 mg PO BEDTIME 30 Days Qty: 60 RF: 1 hydrocodone-acetaminophen [[place]] 10-325 mg tablet 1 tab PO .5 TIMES DAILY PRN (Reason: Pain) 30 Days Qty: 150 RF: 0 hydrocodone-acetaminophen 10-325 mg tablet 1 tab PO .5 times a day PRN (Reason: pain) 30 Days Qty: 150 RF: 0 pregabalin 150 mg capsule 150 mg PO BID 30 Days Qty: 60 RF: 1 tramadol 50 mg tablet 100 mg PO QID PRN (Reason: Pain) 30 Days Qty: 240 RF: 1 Victoza 2-Bjorn 0.6 mg/0.1 mL (18 mg/3 mL) pen injector 1.8 mg SUBCUT DAILY Qty: 3 RF: 2 aspirin [Adult Aspirin Regimen] 81 mg tablet,delayed release (DR/EC) 81 mg PO DAILY Qty: 30 RF: 1 lisinopril 40 mg tablet 40 mg PO DAILY Qty: 90 RF: 3 (DME) pen needle, diabetic [TechLITE Pen Needle] 32 gauge x 1/4 needle See Rx Instructions .ROUTE .MEDSUPPLY Qty: 100 RF: 3 furosemide 20 mg tablet See Rx Instructions .ROUTE .COMPLEX Qty: 60 RF: 4 metoprolol succinate 50 mg tablet extended release 24 hr 50 mg PO DAILY Qty: 90 RF: 3 pantoprazole 40 mg tablet,delayed release (DR/EC) 40 mg PO DAILY Qty: 30 RF: 3 insulin aspart U-100 [Novolog Flexpen U-100 Insulin] 100 unit/mL (3 mL) insulin pen 20 unit SUBCUT TID Qty: 15 RF: 2 rosuvastatin [Crestor] 20 mg tablet 20 mg PO BEDTIME Qty: 30 RF: 0 Levemir FlexTouch U-100 Insuln 100 unit/mL (3 mL) insulin pen 38 unit SUBCUT DAILY Qty: 15 RF: 2 potassium chloride 10 mEq tablet extended release 10 - 20 meq PO Q3D RF: 0 Discharge Orders: Discharge Order (Routine); Ordered 08/28/20 Ordered By: Aguilar Hilliard Referrals: Cindy Hsu DO [Primary Care Provider] - 1-3 days Discharge Diet: Advance as tolerated Discharge Activity: Resume usual activity Patient Instructions: Cast Care (ED) Coding Level of Care Code ED Cloth Finishing Range Tender for Chg Fwd Exam Comprehensive
== END 2020-08-28 11:56 | disposition home or self-care (01) ==
PROVIDERS: Emergency Provider Emergency Medicine; PCP Family Medicine
DX: Z47.89 Encounter for other orthopedic aftercare (principal); Z79.82 Long term (current) use of aspirin; Z79.4 Long term (current) use of insulin; I11.0 Hypertensive heart disease with heart failure; I50.9 Heart failure, unspecified; E78.5 Hyperlipidemia, unspecified; E11.9 Type 2 diabetes mellitus without complications; Z89.412 Acquired absence of left great toe; Z89.422 Acquired absence of other left toe(s)
CPT/HCPCS: 12345; 99282

== ENCOUNTER 2020-08-31 10:06 | Outpatient (CLI) | payer MEDICAID, SELFPAY | END 2020-08-31 10:07 | disposition home or self-care (01) | LOC: WOUND 10:07 | PROVIDERS: PCP Family Medicine; Visit Provider Nurse Practitioner Family | DX: M25.512 Pain in left shoulder (principal); E11.40 Type 2 diabetes mellitus with diabetic neuropathy, unspecified; Z79.891 Long term (current) use of opiate analgesic; E11.621 Type 2 diabetes mellitus with foot ulcer; L97.512 Non-pressure chronic ulcer of other part of right foot with fat layer exposed | CPT/HCPCS: 11042; 99213; 99214 ==

== ENCOUNTER 2020-09-07 10:28 | Outpatient (CLI) | payer MEDICAID, SELFPAY | END 2020-09-07 10:29 | disposition home or self-care (01) | LOC: WOUND 10:29 | PROVIDERS: PCP Family Medicine; Visit Provider Nurse Practitioner Family | DX: E11.621 Type 2 diabetes mellitus with foot ulcer (principal); L97.512 Non-pressure chronic ulcer of other part of right foot with fat layer exposed | CPT/HCPCS: 11042 ==

== ENCOUNTER 2020-09-14 10:14 | Outpatient (CLI) | payer MEDICAID, SELFPAY | END 2020-09-14 10:15 | disposition home or self-care (01) | LOC: WOUND 10:15 | PROVIDERS: PCP Family Medicine; Visit Provider Thoracic Surgery (Cardiothoracic Vascular Surgery) | DX: E11.621 Type 2 diabetes mellitus with foot ulcer (principal); L97.512 Non-pressure chronic ulcer of other part of right foot with fat layer exposed | CPT/HCPCS: 11042 ==

== ENCOUNTER 2020-09-14 11:23 | Outpatient (CLI) | payer MEDICAID, SELFPAY ==
[2020-09-14 11:39] LABS: Basophils # 0.1 10^3/uL (0.0-0.1); Basophils % 0.9 %; Eosinophils # 0.4 10^3/uL (0.0-0.8); Eosinophils % 4.5 %; Hematocrit 42.8 % (42.0-52.0); Hemoglobin 13.8 g/dL (11.7-16.6); Lymphocytes # 1.9 10^3/uL (0.8-4.8); Lymphocytes % 20.8 %; Mean Corpuscular HGB Conc 32.2 g/dL (30.0-36.0); Mean Corpuscular Hemoglobin 27.2 pg (28.0-34.0); Mean Corpuscular Volume 84.4 fL (80-94); Mean Platelet Volume 10.9 fL (7.4-10.4); Monocytes # 0.5 10^3/uL (0.2-0.9); Monocytes % 5.2 %; Neutrophils # 6.29 10^3/uL (1.8-7.7); Neutrophils % 68.3 %; Nucleated Red Blood Cells % 0 %; Platelet Count 307 10^3/cmm (130-400); Red Blood Count 5.07 10^6/uL (4.1-5.3); Red Cell Distribution Width 14.1 % (12.1-15.1); White Blood Count 9.2 10^3/uL (4.0-10.0)
[2020-09-14 11:53] LABS: Anion Gap 15.7 (5-19); Blood Urea Nitrogen 20 mg/dL (6-20); Calcium 9.5 mg/dL (8.5-10.5); Carbon Dioxide 27 mmol/L (22-29); Chloride 98 mmol/L (98-107); Glucose 318 mg/dL (65-115); Osmolality Calculated 297 mOsm/kg (285-295); Potassium 4.7 mmol/L (3.5-5.1); Sodium 136 mmol/L (136-145)
[2020-09-14 13:01] LABS: Erythrocyte Sedimentation Rate 20 mm/hr (0-10)
== END 2020-09-14 11:24 | disposition home or self-care (01) ==
LOC: LAB 11:25
PROVIDERS: PCP Family Medicine; Visit Provider Thoracic Surgery (Cardiothoracic Vascular Surgery)
DX: E11.9 Type 2 diabetes mellitus without complications (principal)
CPT/HCPCS: 36415; 80048; 85025; 85651

== ENCOUNTER 2020-09-21 09:24 | Outpatient (CLI) | payer MEDICAID, SELFPAY | END 2020-09-21 09:25 | disposition home or self-care (01) | LOC: WOUND 09:24 | PROVIDERS: PCP Family Medicine; Visit Provider Thoracic Surgery (Cardiothoracic Vascular Surgery) | DX: E11.621 Type 2 diabetes mellitus with foot ulcer (principal); L97.512 Non-pressure chronic ulcer of other part of right foot with fat layer exposed | CPT/HCPCS: 11042; 87070; 87176; 87205; L2999 ==

== ENCOUNTER 2020-09-23 10:21 | Emergency (ER) | payer MEDICAID, SELFPAY ==
[2020-09-23 10:26] VITALS: PULSE 81; RESP 16; TEMP 36.3; O2SAT 99; BMI 35.9
--- NOTE | 2020-09-23 10:33 | ED_ITS ---
HPI - Extremity Problem General: Chief complaint: Extremity Injury, Lower Stated complaint: FELL, INJURED R LEG Time Seen by Provider: 09/23/20 10:27 History of Present Illness: HPI Narrative: Patient states he fell a few minutes ago and injured his right ankle fell going down steps at home. Pain with ambulation MD Complaint: joint pain Onset (ago): minute(s) Pain Consistency: constant Location: right and lower extremity Severity scale (1-10): 3 Quality: aching Radiation: none Relieving factors: immobilization Exacerbating factors: range of motion and weight bearing Associated symptoms: Reports no associated symptoms; Deny fever(s) Review of Systems Const: Denies: fever(s) or chills Musc: Reports: joint pain (Right ankle hurt few months ago by falling down steps. Denies any other in) Psych: Denies: anxiety or depression PFSH ED PFSH: Medical History (Updated 09/05/20 @ 00:00 by ) Amputated great toe CHF (congestive heart failure) Diverticulosis Dyslipidemia Encounter for long-term use of opiate analgesic Essential (primary) hypertension History of amputation of left great toe Shoulder pain Type 2 diabetes mellitus with other diabetic neurological complication Wound dehiscence, surgical Surgical History H/O hernia repair History of amputation of lesser toe of right foot Hx of amputation of lesser toe Left foot big toe and second toe 01/21/[place] [facility] [place] Leal Status post PICC central line placement Family History Mother Cancer Denies family history of Diabetes CAD (coronary artery disease) Clotting disorder Dementia Hyperlipidemia Psychiatric illness Chronic kidney disease (CKD) Suicide Anesthesia complication Bleeding disorder Family history of premature coronary artery disease Lung disease Hypertension Stroke Social History Smoking and tobacco status: never smoked Second hand smoke exposure: No Alcohol intake: former Desire information about alcohol rehabilitation?: No Counseling given: No Adopted: No Caregiver/support person: Yes Lives independently: Yes Household members: spouse and significant other Housing: House Marital status: Life Partner Number of children: 0 Highest education level completed: High School Graduate service: Yes Current occupational status: retired Pets and animals: Yes History of recent travel: No Current gender identity: Male Yolande/Adventist: None Agree to transfusion: Yes Financial difficulty paying for basics: Somewhat Hard Physical Exam Const: COMMON NORMALS: no acute distress Extremity: RIGHT LOWER EXTREMITY: Yes foot & digits (Dorsal lateral aspect mi ld swelling. Does have a dressing to his right gre) Psych: COMMON NORMALS: mental status grossly normal Course Vital Signs: Vital signs: Vital Signs Temperature 97.3 F L 09/23/20 10:26 Pulse Rate 81 09/23/20 10:26 Respiratory Rate 16 09/23/20 10:26 Blood Pressure 139/88 09/23/20 10:34 Pulse Oximetry 94 09/23/20 10:36 Discharge Plan Discharge Prescriptions: No Action (DME) Articulating AFO See Rx Instructions .ROUTE .MEDSUPPLY Qty: 1 RF: 0 amlodipine [Norvasc] 2.5 mg tablet 2.5 mg PO .po q hs Qty: 30 RF: 0 sildenafil [Viagra] 100 mg tablet 100 mg PO DAILY PRN (Reason: sexual activity) Qty: 9 RF: 0 hydrocodone-acetaminophen 10-325 mg tablet 1 tab PO .5 times a day PRN (Reason: pain) 30 Days Qty: 150 RF: 0 hydrocodone-acetaminophen [[place]] 10-325 mg tablet 1 tab PO .5 TIMES DAILY PRN (Reason: Pain) 30 Days Qty: 150 RF: 0 nortriptyline 50 mg capsule 100 mg PO BEDTIME 30 Days Qty: 60 RF: 1 pregabalin 150 mg capsule 150 mg PO BID 30 Days Qty: 60 RF: 1 tramadol 50 mg tablet 100 mg PO QID PRN (Reason: Pain) 30 Days Qty: 240 RF: 1 aspirin [Adult Aspirin Regimen] 81 mg tablet,delayed release (DR/EC) 81 mg PO DAILY Qty: 30 RF: 1 lisinopril 40 mg tablet 40 mg PO DAILY Qty: 90 RF: 3 furosemide 20 mg tablet See Rx Instructions .ROUTE .COMPLEX Qty: 60 RF: 4 metoprolol succinate 50 mg tablet extended release 24 hr 50 mg PO DAILY Qty: 90 RF: 3 pantoprazole 40 mg tablet,delayed release (DR/EC) 40 mg PO DAILY Qty: 30 RF: 3 insulin aspart U-100 [Novolog Flexpen U-100 Insulin] 100 unit/mL (3 mL) insulin pen 20 unit SUBCUT TID Qty: 15 RF: 2 Levemir FlexTouch U-100 Insuln 100 unit/mL (3 mL) insulin pen 38 unit SUBCUT DAILY Qty: 15 RF: 2 (DME) pen needle, diabetic [TechLITE Pen Needle] 32 gauge x 1/4 needle See Rx Instructions .ROUTE .MEDSUPPLY Qty: 100 RF: 3 rosuvastatin [Crestor] 20 mg tablet 20 mg PO BEDTIME Qty: 30 RF: 1 Victoza 2-Bjorn 0.6 mg/0.1 mL (18 mg/3 mL) pen injector 1.8 mg SUBCUT DAILY Qty: 3 RF: 2 ropinirole 1 mg tablet 1 mg PO DAILY 30 Days Qty: 30 RF: 1 potassium chloride 10 mEq tablet extended release 10 - 20 meq PO Q3D Qty: 90 RF: 0 (DME) Diabetic shoes with molded inserts See Rx Instructions .Route .MEDSUPPLY Qty: 1 RF: 0 Coding Level of Care Code ED Inventory Manager for Chg Fwd Exam Expanded Problem Focused
--- NOTE | 2020-09-23 10:33 | XR_ITS ---
WS: [id number] XR ankle RT min 3V* [id number] REASON FOR EXAM: fall FINDINGS: Significant swelling of the soft tissues around the right ankle joint. Small densities adjacent to th e right medial malleolus in addition to a small enthesophyte likely related to old trauma involving t he medial collateral ligament. No acute fracture. Right lateral malleolus is intact. There is a dense organized periosteal reaction along the medial aspect of the tibia interposed betwee n the tibia and fibula. Likely this is the result of old injury of the interosseous fascia between th e tibia and fibula. Previous osteotomy of a portion of the right fifth metatarsal. XR/XR ankle RT min 3V* [id number] IMPRESSION: Chronic abnormalities noted with no acute fracture or dislocation identified.
[2020-09-23 10:34] VITALS: BP 139/88
[2020-09-23 10:36] VITALS: O2SAT 94
--- NOTE | 2020-09-23 10:41 | PC.NURSE ---
portable xray at bedside
== END 2020-09-23 11:18 | disposition home or self-care (01) ==
LOC: ER 11:09
PROVIDERS: Emergency Provider Nurse Practitioner Family; PCP Family Medicine
DX: M25.571 Pain in right ankle and joints of right foot (principal); Z79.82 Long term (current) use of aspirin; Z79.4 Long term (current) use of insulin; I11.0 Hypertensive heart disease with heart failure; I50.9 Heart failure, unspecified; E78.5 Hyperlipidemia, unspecified; E11.9 Type 2 diabetes mellitus without complications; Z89.421 Acquired absence of other right toe(s)
CPT/HCPCS: 12345; 73610; 99282

== ENCOUNTER 2020-09-26 11:29 | Emergency (ER) | payer MEDICAID, SELFPAY ==
--- NOTE | 2020-09-26 11:35 | USR_ITS ---
PROCEDURE INFORMATION: Exam: US Duplex Right Lower Extremity Veins, Limited Exam date and time: 09/26/2020 11:41 AM Age: 50 years old Clinical indication: Pain; Leg, lower; Right; Additional info: Dvt TECHNIQUE: Imaging protocol: Real-time Duplex ultrasound of the Right Lower Extremity with 2-D li scale, color Doppler flow and spectral waveform analysis with image documentation. Limited exam was focused on the right lower extremity veins. COMPARISON: No relevant prior studies available. FINDINGS: Right deep veins: Unremarkable. The common femoral, femoral, proximal profunda femoral and popliteal veins are patent without thrombus. Normal Doppler waveforms. Normal compressibility and/or augmentation response. Right superficial veins: Unremarkable. Saphenofemoral junction is patent without thrombus. Soft tissues: Unremarkable. Lymph nodes: There are lymph nodes with normal fatty dedrick in the right inguinal region. US/[place] [id number] IMPRESSION: No evidence for deep venous thrombosis.
[2020-09-26 11:36] VITALS: BP 143/87; PULSE 70; RESP 14; TEMP 36.6; O2SAT 99; BMI 35.9
--- NOTE | 2020-09-26 12:00 | PC.NURSE ---
Abril completed US at bedside @1200
[2020-09-26 12:30] VITALS: BP 129/74; RESP 18; O2SAT 93
--- NOTE | 2020-09-26 12:32 | XRR_ITS ---
PROCEDURE INFORMATION: Exam: XR Right Tibia and Fibula Exam date and time: 09/26/2020 12:32 PM Age: 50 years old Clinical indication: Injury or trauma; Fall; Blunt trauma; Knee; Right TECHNIQUE: Imaging protocol: XR Right tibia and fibula. Views: 2 views. COMPARISON: No relevant prior studies available. FINDINGS: Bones/joints: There are mildly displaced oblique fractures through the proximal fibular metadiaphysis. Edema and/or hematoma is present in the soft tissues adjacent to the fracture site. The impression. There are mildly displaced fractures through the proximal fibula. Soft tissues: Normal. XR/XR tibia fibula RT 2V [id number] IMPRESSION: There are mildly displaced fractures through the proximal fibula.
--- NOTE | 2020-09-26 13:19 | W.ED.EXTPRO ---
HPI - Extremity Problem General: Chief complaint: Extremity Injury, Lower Stated complaint: fall/right knee injury/pain Time Seen by Provider: 09/26/20 11:31 Source: patient Mode of arrival: ambulatory Limitations: no limitations History of Present Illness: HPI Narrative: 50-year-old male patient presents with right lower leg pain. Patient states he had a fall on the 10th and came into the emergency department and was discharged with a sprained ankle. Patient states since then his pain has increased and the swelling has worsened. Patient stated that is very painful to put weight on his right side. Patient denies any numbness or tingling. Patient denies any loss of sensation. Patient denies any fever. Review of Systems General: Reports: 10 or more systems reviewed and unremarkable except in HPI and below Musc: Reports: extremity pain and extremity swelling [facility] ED PFSH: Medical History Amputated great toe CHF (congestive heart failure) Diverticulosis Dyslipidemia Encounter for long-term use of opiate analgesic Essential (primary) hypertension History of amputation of left great toe Shoulder pain Type 2 diabetes mellitus with other diabetic neurological complication Wound dehiscence, surgical Surgical History H/O hernia repair History of amputation of lesser toe of right foot Hx of amputation of lesser toe Left foot big toe and second toe 01/21/20 at [facility] Dr. Leal Status post PICC central line placement Family History Mother Cancer Denies family history of Diabetes CAD (coronary artery disease) Clotting disorder Dementia Hyperlipidemia Psychiatric illness Chronic kidney disease (CKD) Suicide Anesthesia complication Bleeding disorder Family history of premature coronary artery disease Lung disease Hypertension Stroke Social History Smoking and tobacco status: never smoked Second hand smoke exposure: No Alcohol intake: former Desire information about alcohol rehabilitation?: No Counseling given: No Adopted: No Caregiver/support person: Yes Lives independently: Yes Household members: spouse and significant other Housing: House Marital status: Life Partner Number of children: 0 Highest education level completed: High School Graduate service: Yes Current occupational status: retired Pets and animals: Yes History of recent travel: No Current gender identity: Male Yolande/Yarsani: None Agree to transfusion: Yes Financial difficulty paying for basics: Somewhat Hard Physical Exam Const: COMMON NORMALS: no acute distress, average body habitus, patient oriented x3, no limitations, healthy appearing, alert and well nourished Neck/C-Spine: COMMON NORMALS: no JVD Resp: COMMON NORMALS: normal respiratory effort, No retractions, No use of accessory muscles and clear to auscultation bilaterally AUSCULTATION: clear to auscultation bilaterally Cardio: COMMON NORMALS: no JVD, regular rate and regular rhythm RATE: regular rate RHYTHM: regular rhythm : COMMON NORMALS: Yes no CVA tenderness BLADDER/KIDNEY EXAM: Yes no CVA tenderness Back/Pelvis: COMMON NORMALS: no CVA tenderness, thoracic and lumbar spine normal to inspection, no thoracic nor lumbar tenderness and thoraco-lumbar ROM normal Extremity: COMMON NORMALS: capillary refill normal GENERAL: Yes calf tenderness, Yes edema and Yes weight-bearing difficulty RIGHT LOWER EXTREMITY: Yes lower leg EXTREMITY IMAGE (FRONT): 1. Pain with palpation Neuro: COMMON NORMALS: patient oriented x3 SENSORIUM/ORIENTATION: Yes alert Psych: COMMON NORMALS: denies homicidal ideation and denies suicidal ideation Skin: COMMON NORMALS: no rashes or lesions noted and no wounds GENERAL SKIN EXAM: no rashes or lesions noted Course Vital Signs: Vital signs: Vital Signs Temperature 97.8 F 09/26/20 11:36 Pulse Rate 70 09/26/20 11:36 Respiratory Rate 18 09/26/20 12:30 Blood Pressure 129/74 09/26/20 12:30 Pulse Oximetry 93 09/26/20 12:30 MDM - Extremity (Nontraumatic) MDM Narrative: Medical decision making narrative: Patient is well-appearing nontoxic and in no acute distress. Patient's x-ray does revealed a proximal fibula fracture on the right side. Patient is neurovascularly intact distally to this. Patient states his pain is controlled with hydrocodone which she has at home and states he does not need any more pills. I will place patient in a posterior OCL long with crutches and have him be nonweightbearing I will refer patient to Ortho. Patient states he has an appointment with Dr. Goodman Alexandre for chronic foot problem he will see him on Sunday. I discussed with patient symptoms of compartment syndrome as well as return precautions I also advised patient of home care. At this point I do not feel any further treatment is necessary. I did ultrasound patient's right leg prior to the x-ray to rule out DVT ultrasound was negative for DVT. Patient is medically cleared and appropriate for discharge Discharge Plan Discharge Patient Disposition: Home Clinical Impression: Fracture of fibula, proximal Qualifiers: Encounter type: initial encounter Fracture type: closed Fracture morphology: other fracture Laterality: right Qualified Code(s): S82.831A - Other fracture of upper and lower end of right fibula, initial encounter for closed fracture Condition: Stable Prescriptions: [place] 5-325 mg tablet 1 tab PO TID PRN (Reason: pain) 3 Days Qty: 10 RF: 0 No Action (DME) Articulating AFO See Rx Instructions .ROUTE .MEDSUPPLY Qty: 1 RF: 0 amlodipine [Norvasc] 2.5 mg tablet 2.5 mg PO .po q hs Qty: 30 RF: 0 sildenafil [Viagra] 100 mg tablet 100 mg PO DAILY PRN (Reason: sexual activity) Qty: 9 RF: 0 hydrocodone-acetaminophen 10-325 mg tablet 1 tab PO .5 times a day PRN (Reason: pain) 30 Days Qty: 150 RF: 0 hydrocodone-acetaminophen [[place]] 10-325 mg tablet 1 tab PO .5 TIMES DAILY PRN (Reason: Pain) 30 Days Qty: 150 RF: 0 nortriptyline 50 mg capsule 100 mg PO BEDTIME 30 Days Qty: 60 RF: 1 pregabalin 150 mg capsule 150 mg PO BID 30 Days Qty: 60 RF: 1 tramadol 50 mg tablet 100 mg PO QID PRN (Reason: Pain) 30 Days Qty: 240 RF: 1 aspirin [Adult Aspirin Regimen] 81 mg tablet,delayed release (DR/EC) 81 mg PO DAILY Qty: 30 RF: 1 lisinopril 40 mg tablet 40 mg PO DAILY Qty: 90 RF: 3 furosemide 20 mg tablet See Rx Instructions .ROUTE .COMPLEX Qty: 60 RF: 4 metoprolol succinate 50 mg tablet extended release 24 hr 50 mg PO DAILY Qty: 90 RF: 3 pantoprazole 40 mg tablet,delayed release (DR/EC) 40 mg PO DAILY Qty: 30 RF: 3 insulin aspart U-100 [Novolog Flexpen U-100 Insulin] 100 unit/mL (3 mL) insulin pen 20 unit SUBCUT TID Qty: 15 RF: 2 Levemir FlexTouch U-100 Insuln 100 unit/mL (3 mL) insulin pen 38 unit SUBCUT DAILY Qty: 15 RF: 2 (DME) pen needle, diabetic [TechLITE Pen Needle] 32 gauge x 1/4 needle See Rx Instructions .ROUTE .MEDSUPPLY Qty: 100 RF: 3 rosuvastatin [Crestor] 20 mg tablet 20 mg PO BEDTIME Qty: 30 RF: 1 Victoza 2-Bjorn 0.6 mg/0.1 mL (18 mg/3 mL) pen injector 1.8 mg SUBCUT DAILY Qty: 3 RF: 2 ropinirole 1 mg tablet 1 mg PO DAILY 30 Days Qty: 30 RF: 1 potassium chloride 10 mEq tablet extended release 10 - 20 meq PO Q3D Qty: 90 RF: 0 (DME) Diabetic shoes with molded inserts See Rx Instructions .Route .MEDSUPPLY Qty: 1 RF: 0 Discharge Orders: Discharge ED (Routine); Ordered 09/26/20 Ordered By: Tiffanie Chung Referrals: Cindy Hsu DO [Primary Care Provider] - Discharge Diet: Advance as tolerated Discharge Activity: Use walker/crutches as instructed Activity Restrictions/Additional Instructions: Please continue to [place] as previously prescribed and do not drive or operate heavy machinery while taking Please keep your appt with Dr. Cali on Sunday Please keep Split on and use crutches and be non weight bearing Elevate extremity Coding Level of Care Code ED Usability Architect for Davina Whelan
[2020-09-26 13:41] VITALS: BP 116/81; PULSE 67; RESP 18; O2SAT 96
--- NOTE | 2020-09-27 10:45 | DCPLANNER ---
alteration manager had message to schedule a follow up appointment for patient with ortho. alteration manager called the ortho clinic, spoke with Letha, gave clinic patients information. alteration manager was told that patients information would be printed and reviewed. Clinic will call patient with appointment information.
--- NOTE | 2020-09-28 11:49 | DCPLANNER ---
Patient had a follow up appointment scheduled for 09.28.20 with [facility] ortho. Patient did attend appointment.
== END 2020-09-26 13:52 | disposition home or self-care (01) ==
PROVIDERS: Emergency Provider Registered Nurse; PCP Family Medicine
DX: S82.831A Other fracture of upper and lower end of right fibula, initial encounter for closed fracture (principal); Z79.82 Long term (current) use of aspirin; Z79.4 Long term (current) use of insulin; I11.0 Hypertensive heart disease with heart failure; I50.9 Heart failure, unspecified; E78.5 Hyperlipidemia, unspecified; E11.9 Type 2 diabetes mellitus without complications; W19.XXXA Unspecified fall, initial encounter
CPT/HCPCS: 12345; 29505; 73590; 93971; 99281; 99283; E0114

== ENCOUNTER → 2020-09-28 11:37 | Outpatient (BNVA) | payer MEDICAID, SELFPAY | PROVIDERS: PCP Family Medicine; Visit Provider Podiatrist Foot & Ankle Surgery | DX: T14.8XXA Other injury of unspecified body region, initial encounter (principal); Z01.818 Encounter for other preprocedural examination | CPT/HCPCS: 73610 ==

== ENCOUNTER → 2020-09-29 13:50 | Outpatient (BNVA) | payer MEDICAID, SELFPAY | PROVIDERS: PCP Family Medicine; Visit Provider Podiatrist Foot & Ankle Surgery | DX: Z01.818 Encounter for other preprocedural examination (principal); Z11.59 Encounter for screening for other viral diseases | CPT/HCPCS: 87635 ==

== ENCOUNTER 2020-10-01 07:13 | Outpatient (CLI) | payer MEDICAID, SELFPAY ==
--- NOTE | 2020-10-01 07:17 | NM_ITS ---
WS: [id number] THREE-PHASE BONE SCAN HISTORY: PAIN, REDNESS, NON-HEALING ULCER, nonhealing ulcer medial RIGHT first toe. Recent RIGHT ankl e fracture. Prior amputations of the RIGHT second and fifth toes. LEFT first, second and fifth toe am putations. COMPARISON: 08/04/2016, 09/28/2020 Patient is is injected with 25.6 mCi Tc99m HDP intravenously. Immediate angiographic phase imaging is performed over the area of concern. Static blood pool imaging also performed. Two-hour whole-body sc intigrams performed in anterior and posterior projections. Additional large field of view imaging sub mitted as necessary. 3 phase bone scan centered over the feet. Three-phase bone scan is mildly positive involving the LEFT foot in the region of the third and four th metatarsal heads. No recent radiographs. Angiographic and blood pool phase imaging of the RIGHT foot is negative. Increased uptake at the RIGHT ankle from recent fractures and trauma to the distal tibia. There is no evidence for osteomyelitis or cellulitis to the RIGHT first toe. Mild bilateral AC joint arthritis and knee joint arthritis. NM/NM bone 3 phase [id number] IMPRESSION: 1. No osteomyelitis or cellulitis to the RIGHT first toe. 2. 3 phase bone scan findings are positive involving the LEFT foot in the stevo on of the third and fourth metatarsal heads. No recent radiographs. Most recent radiographs of the LEFT for 01/13/2020. Consider follow-up LEFT foot radiograph . 3. Posttraumatic increased uptake on the delayed bone scan involving the RIGHT distal tibia.
== END 2020-10-01 07:14 | disposition home or self-care (01) ==
LOC: NM 07:13
PROVIDERS: PCP Family Medicine; Visit Provider Thoracic Surgery (Cardiothoracic Vascular Surgery)
DX: R52 Pain, unspecified (principal); L53.9 Erythematous condition, unspecified; Z89.422 Acquired absence of other left toe(s); Z89.421 Acquired absence of other right toe(s); L97.519 Non-pressure chronic ulcer of other part of right foot with unspecified severity
CPT/HCPCS: 78315; A9561

== ENCOUNTER 2020-10-01 17:35 | Emergency (ER) | payer MEDICAID, SELFPAY ==
[2020-10-01 17:44] VITALS: BP 147/77; PULSE 69; RESP 15; TEMP 36.6; O2SAT 98; BMI 35.9
--- NOTE | 2020-10-01 18:05 | PC.NURSE ---
swelling/redness noted to left pinky finger. mild swelling to left ring finger. pt cannot fully make fist with those two fingers, though can extend.
--- NOTE | 2020-10-01 18:06 | XRR_ITS ---
PROCEDURE INFORMATION: Exam: XR Left Hand Exam date and time: 10/01/2020 6:14 PM Age: 50 years old Clinical indication: Injury or trauma; Blunt trauma (contusions or hematomas); Injury date: 09/23/20; Prior surgery; Surgery type: Pins left hand fourth digit; Patient HX: Fall, left hand pain, attn 5th digit TECHNIQUE: Imaging protocol: XR Left hand. Views: 3 or more views. COMPARISON: CR Hand 3 views, LEFT* [id number] 08/19/2015 7:31 PM FINDINGS: Bones/joints: Acute nondisplaced fracture of the proximal phalanx of the 5th finger. Status post arthrodesis of the proximal interphalangeal joint of the 4th digit. There are 2 K-wires and a metallic cerclage wire in place. Hypertrophic changes of the head of the 1st metacarpal with degeneration of the 1st metacarpophalangeal joint. Soft tissues: Soft tissue swelling of the 5th finger. XR/XR hand LT min 3V* [id number] IMPRESSION: Acute nondisplaced fracture of the proximal phalanx of the 5th finger.
--- NOTE | 2020-10-01 18:39 | ED_ITS ---
HPI - Extremity Problem General: Chief complaint: Extremity Injury, Upper Stated complaint: Lt hand Time Seen by Provider: 10/01/20 18:05 History of Present Illness: HPI Narrative: Patient fell downstairs yesterday injuring his left pinky finger has pain now Complaint: extremity pain Onset (ago): day(s) Pain Consistency: constant Location: left and upper extremity Severity scale (1-10): 3 Quality: aching Radiation: none Relieving factors: immobilization Exacerbating factors: range of motion Associated symptoms: Reports no associated symptoms; Deny fever(s) Review of Systems Narrative: Fell down stairs injuring left pinky Const: Denies: fever(s) or chills Musc: Reports: extremity pain Psych: Denies: anxiety or depression PFSH ED PFSH: Medical History (Updated 10/01/20 @ 18:37 by ANTONIO Briones) Amputated great toe CHF (congestive heart failure) Diverticulosis Dyslipidemia Encounter for long-term use of opiate analgesic Essential (primary) hypertension History of amputation of left great toe Shoulder pain Type 2 diabetes mellitus with other diabetic neurological complication Wound dehiscence, surgical Surgical History H/O hernia repair History of amputation of lesser toe of right foot Hx of amputation of lesser toe Left foot big toe and second toe 01/21/20 at [facility] Dr. Leal Status post PICC central line placement Family History Mother Cancer Denies family history of Diabetes CAD (coronary artery disease) Clotting disorder Dementia Hyperlipidemia Psychiatric illness Chronic kidney disease (CKD) Suicide Anesthesia complication Bleeding disorder Family history of premature coronary artery disease Lung disease Hypertension Stroke Social History Smoking and tobacco status: never smoked Second hand smoke exposure: No Alcohol intake: former Desire information about alcohol rehabilitation?: No Counseling given: No Adopted: No Caregiver/support person: Yes Lives independently: Yes Household members: spouse and significant other Housing: House Marital status: Life Partner Number of children: 0 Highest education level completed: High School Graduate service: Yes Current occupational status: retired Pets and animals: Yes History of recent travel: No Current gender identity: Male Yolande/Synagogue: None Agree to transfusion: Yes Financial difficulty paying for basics: Somewhat Hard Physical Exam Const: COMMON NORMALS: no acute distress Extremity: LEFT UPPER EXTREMITY: Yes hand & digits (Left pinky finger with redness proximal phalanx pain with range of motion a) Psych: COMMON NORMALS: mental status grossly normal Course Vital Signs: Vital signs: Vital Signs Temperature 97.9 F 10/01/20 17:44 Pulse Rate 69 10/01/20 17:44 Respiratory Rate 15 10/01/20 17:44 Blood Pressure 147/77 10/01/20 17:44 Pulse Oximetry 98 10/01/20 17:44 Discharge Plan Discharge Patient Disposition: Home Clinical Impression: Finger fracture, left Qualifiers: Encounter type: initial encounter Finger: little finger Fracture type: closed Phalanx: proximal Fracture alignment: displaced Qualified Code(s): S62.617A - Displaced fracture of proximal phalanx of left little finger, initial encounter for closed fracture Condition: Stable Prescriptions: No Action (DME) Articulating AFO See Rx Instructions .ROUTE .MEDSUPPLY Qty: 1 RF: 0 amlodipine [Norvasc] 2.5 mg tablet 2.5 mg PO .po q hs Qty: 30 RF: 0 sildenafil [Viagra] 100 mg tablet 100 mg PO DAILY PRN (Reason: sexual activity) Qty: 9 RF: 0 hydrocodone-acetaminophen 10-325 mg tablet 1 tab PO .5 times a day PRN (Reason: pain) 30 Days Qty: 150 RF: 0 hydrocodone-acetaminophen [[place]] 10-325 mg tablet 1 tab PO .5 TIMES DAILY PRN (Reason: Pain) 30 Days Qty: 150 RF: 0 nortriptyline 50 mg capsule 100 mg PO BEDTIME 30 Days Qty: 60 RF: 1 pregabalin 150 mg capsule 150 mg PO BID 30 Days Qty: 60 RF: 1 tramadol 50 mg tablet 100 mg PO QID PRN (Reason: Pain) 30 Days Qty: 240 RF: 1 aspirin [Adult Aspirin Regimen] 81 mg tablet,delayed release (DR/EC) 81 mg PO DAILY Qty: 30 RF: 1 lisinopril 40 mg tablet 40 mg PO DAILY Qty: 90 RF: 3 furosemide 20 mg tablet See Rx Instructions .ROUTE .COMPLEX Qty: 60 RF: 4 metoprolol succinate 50 mg tablet extended release 24 hr 50 mg PO DAILY Qty: 90 RF: 3 pantoprazole 40 mg tablet,delayed release (DR/EC) 40 mg PO DAILY Qty: 30 RF: 3 insulin aspart U-100 [Novolog Flexpen U-100 Insulin] 100 unit/mL (3 mL) insulin pen 20 unit SUBCUT TID Qty: 15 RF: 2 Levemir FlexTouch U-100 Insuln 100 unit/mL (3 mL) insulin pen 38 unit SUBCUT DAILY Qty: 15 RF: 2 (DME) pen needle, diabetic [TechLITE Pen Needle] 32 gauge x 1/4 needle See Rx Instructions .ROUTE .MEDSUPPLY Qty: 100 RF: 3 rosuvastatin [Crestor] 20 mg tablet 20 mg PO BEDTIME Qty: 30 RF: 1 Victoza 2-Bjorn 0.6 mg/0.1 mL (18 mg/3 mL) pen injector 1.8 mg SUBCUT DAILY Qty: 3 RF: 2 ropinirole 1 mg tablet 1 mg PO DAILY 30 Days Qty: 30 RF: 1 potassium chloride 10 mEq tablet extended release 10 - 20 meq PO Q3D Qty: 90 RF: 0 (DME) Diabetic shoes with molded inserts See Rx Instructions .Route .MEDSUPPLY Qty: 1 RF: 0 Discharge Orders: Discharge ED (Routine); Ordered 10/01/20 Ordered By: Adán Loza Referrals: Cindy Hsu DO [Primary Care Provider] - Discharge Diet: Usual diet Discharge Activity: Increase activity as tolerated Patient Instructions: Finger Fracture (ED) Activity Restrictions/Additional Instructions: Wear splint follow-up with orthopedics as scheduled Coding Level of Care Code ED Full Stack Engineer for Davina Whelan
--- NOTE | 2020-10-04 08:13 | DCPLANNER ---
logistics project manager had message to schedule a follow up appointment for patient with ortho. logistics project manager called the ortho clinic, spoke with Amparo, gave clinic patients information. logistics project manager was told that patients information would be printed and reviewed. Clinic will call patient with appointment information.
--- NOTE | 2020-10-05 11:04 | DCPLANNER ---
Patient has a follow up appointment scheduled for Monday, October 12, [address] at 2:[address] Cali.
--- NOTE | 2020-11-26 14:02 | DCPLANNER ---
Patient had a follow up appointment scheduled for 10.12.20 with ortho - patient did attend appointment.
== END 2020-10-01 19:12 | disposition home or self-care (01) ==
PROVIDERS: Emergency Provider Nurse Practitioner Family; PCP Family Medicine
DX: S62.617A Displaced fracture of proximal phalanx of left little finger, initial encounter for closed fracture (principal); Z79.82 Long term (current) use of aspirin; Z79.4 Long term (current) use of insulin; I11.0 Hypertensive heart disease with heart failure; I50.9 Heart failure, unspecified; E78.5 Hyperlipidemia, unspecified; E11.9 Type 2 diabetes mellitus without complications; W10.8XXA Fall (on) (from) other stairs and steps, initial encounter
CPT/HCPCS: 12345; 29125; 73130; 99281; 99283; E0114

== ENCOUNTER 2020-10-05 05:51 | Day surgery (SDC) | payer MEDICAID, SELFPAY ==
[2020-10-04 12:51] VITALS: BMI 35.9
--- NOTE | 2020-10-05 | SCC_ITS ---
Procedure Done: Open reduction internal fixation right ankle syndesmosis CPT code 76174 42 seconds of fluoroscopic guidance, for a cumulative dose of 1.1 mGy, was provided to Dr. Cali by the radiology department. C-arm images of the RIGHT ankle were saved for the patient's permanent record. [facility] CENTERDougie
[2020-10-05 06:09] VITALS: BP 132/77; PULSE 70; RESP 18; TEMP 36.4; O2SAT 98
[2020-10-05] MEDS: sodium chloride 0.9% 1,000 ML 30 ML IV (06:21)
--- NOTE | 2020-10-05 06:25 | ANES.PREANE2 ---
Pre-Anesthetic Assessment Pre-Anesthetic Assessment: Height/Weight: Height 1.78 m Weight 113.398 kg Temp Pulse Resp BP Pulse Ox 97.6 F 70 18 132/77 98 10/05/20 06:09 10/05/20 06:09 10/05/20 06:09 10/05/20 06:09 10/05/20 06:09 Preop Diagnosis: Right ankle fracture Proposed Procedure: Operation Date: 10/05/20 07:00 Proposed Procedures p Plantar Plate Repair syndismotic repair right ankle 62283 s93.431a(Right) - Ernesto Cali DPM Last intake: Intake Last Liquid Date 10/04/20 Last Liquid Time 21:30 Last Solid Date 10/04/20 Last Solid Time 21:30 Social: Social History: No alcohol and No tobacco Exam: Pre-Anes Outpt Exam: alert, oriented x 3, clear to auscultation bilaterally and regular rate & rhythm Airway: Submandibular: WNL Cervical ROM: Other (limited) MP: 2 Dentition: False (upper and lower) and Full History/ROS: No significant history except as noted Pulmonary: Pulmonary: HORNER and Sleep apnea CV/HEM: CV/HEM: CHF and HTN : : None reported Hepatic: Hepatic: None reported GI: GI: GERD (mostly controlled) Metabolic: Metabolic: DM, Hyperlipidemia and Morbid obesity Musc/skel: Musc/skel: OA/DJD Neuropsych: Neuropsych: Neuropathy (hands and feet) Anesthetic Plan: ASA status: 3 Anesthesia: Anesthesia Evaluation and General Risk of > 500 ml blood loss (7ml/kg in children): Yes, adequate IV access and fluids planned Meds/Allergies Current Medications: Current Medications Generic Name Dose Route Start Last Admin Trade Name Freq PRN Reason Stop Dose Admin Sodium Chloride 1,000 mls @ 30 ml s/hr 10/05/20 06:00 10/05/20 06:21 Sodium Chloride 0.9% IV 10/06/20 05:59 30 mls/hr .Q24H ELISE Administration PFSH Anesthesia PFSH: Medical History Amputated great toe CHF (congestive heart failure) Diverticulosis Dyslipidemia Encounter for long-term use of opiate analgesic Essential (primary) hypertension History of amputation of left great toe Shoulder pain Type 2 diabetes mellitus with other diabetic neurological complication Wound dehiscence, surgical Surgical History H/O hernia repair History of amputation of lesser toe of right foot Hx of amputation of lesser toe Left foot big toe and second toe 01/21/20 at [facility] [place] Dr. Leal Status post PICC central line placement Family History Mother Cancer Denies family history of Diabetes CAD (coronary artery disease) Clotting disorder Dementia Hyperlipidemia Psychiatric illness Chronic kidney disease (CKD) Suicide Anesthesia complication Bleeding disorder Family history of premature coronary artery disease Lung disease Hypertension Stroke Social History Smoking and tobacco status: never smoked Second hand smoke exposure: No Alcohol intake: former Desire information about alcohol rehabilitation?: No Counseling given: No Adopted: No Caregiver/support person: Yes Lives independently: Yes Household members: spouse and significant other Housing: House Marital status: Life Partner Number of children: 0 Highest education level completed: High School Graduate service: Yes Current occupational status: retired Pets and animals: Yes History of recent travel: No Current gender identity: Male Yolande/Confucianism: None Agree to transfusion: Yes Financial difficulty paying for basics: Somewhat Hard Data Anesthesia Cardiac Studies: No Data to Display
--- NOTE | 2020-10-05 06:33 | W.PM.OPSUD ---
Surgery/Procedure H&P Update DATE OF PROCEDURE: October 05, 2020 DATE H&P PERFORMED: 09/28/20 H&P UPDATE INFORMATION: I have reviewed H&P completed within last 30 days, I have examined patient prior to procedure, No changes to prior documentation and H&P is in [facility] EMR on date indicated PREOP DIAGNOSIS: Right ankle fracture PLANNED PROCEDURE: Operation Date: 10/05/20 07:00 Proposed Procedures p open reduction internal fixation right ankle syndesmosis [id number] s93.431a(Right) - Ernesto Cali DPM
--- NOTE | 2020-10-05 08:18 | XRR_ITS ---
PROCEDURE INFORMATION: Exam: XR Right Ankle Exam date and time: 10/05/2020 8:20 AM Age: 50 years old Clinical indication: Device placement; Other: Post op; Prior surgery; Surgery date: Post-operative (0-2 days) TECHNIQUE: Imaging protocol: XR Right ankle. Views: 3 or more views. COMPARISON: CR XR ankle RT min 3V* [id number] 09/28/2020 11:43 AM FINDINGS: Bones/joints: Operative changes about the distal tibial and fibular metaphysis with reduction of the previously visualized diastasis between the tibia and fibula/disruption of the interosseous ligament. Ankle mortise is symmetrical Resection of the 5th metatarsal. Tiny ossific densities in the soft tissues distal to the medial malleolus likely tiny avulsion injuries. Previously noted. Soft tissues: Normal. XR/XR ankle RT min 3V* [id number] IMPRESSION: Surgical fixation of the ankle. See above.
--- NOTE | 2020-10-05 08:18 | P.OP_ITS ---
Operative Report Date of procedure: October 05, 2020 Pre-op Diagnosis: Right ankle fracture Post-op diagnosis: same Procedure Done: Open reduction internal fixation right ankle syndesmosis CPT code 42384 Implants: Arthrex button plate and tight rope x2. 2-0 Vicryl, 4-0 Vicryl, skin lanny Specimens removed/disposition: None Pathology: none sent Surgeon: Ernesto Cali D.P.M. Human Resources Benefits Coordinator: Alethea Anesthesia: General Estimated blood loss: 10 mL Tourniquet time: 52 minutes IV fluids: None Urine output: None Complications: None Findings: Interruption of syndesmosis right ankle with medial gutter widening greater than 12 mm. Trimalleolar ankle equivalent fracture with high a Maisonneuve fracture at the proximal fibula, posterior malleolar fracture and avulsion fracture of the medial malleolus. Condition: stable Disposition: PACU Brief History: Patient tripped at home sustaining a right ankle injury. On plain film x-ray I appreciate a posterior malleolus avulsion fracture, avulsion fracture of the medial malleolus and greater than 12 mm of medial gutter widening and increased tib-fib clear space. Recommended syndesmotic repair open reduction internal fixation with tight rope, button plate this will allow for dynamic stabilization. Will treat Maisonneuve fracture conservatively. Patient is agreeable. Risks include pain, bleeding, numbness, infection, failure to correct deformity, overcorrection of deformity, ankle joint stiffness, lack of motion, degenerative joint disease at the right ankle. Need for further surgical intervention. Also increased risk for heart attack, stroke, PE, DVT and . Patient will be taking aspirin once daily postoperatively. Baby aspirin 81 mg once daily. Patient seen in preop, informed consent is signed, initialed right ankle. Answered all patient's questions to his satisfaction. No guarantees written, expressed or implied. Patient wishes to proceed. Procedure: Under mild sedation the patient was brought to the operating room and placed on the operating table in supine position. A timeout was performed. Anesthesia was then administered by the anesthesia service. Local anesthesia in jected by myself right lateral ankle and saphenous nerve total of 30 cc of 0.5% Marcaine plain. Well-padded pneumatic tourniquet applied to the right thigh. Right lower extremity was scrubbed, prepped and draped utilizing normal aseptic technique. Right foot was then exanguinated with an Esmarch bandage and a tourniquet inflated to 300 mmHg. Attention was directed to the lateral aspect of the right ankle where lateral malleolus was palpated. Directly overlying the distal fibula a linear longitudinal incision was made with a #15 blade with dissection carried down through subcutaneous tissue utilizing a combination of sharp and blunt technique. Care was taken to retract and preserve all neurovascular and tendinous structures. All bleeders were ligated and cauterized as necessary. linear periosteal incision was made exposing the lateral malleolus and distal fibula. Next the Arthrex button plate was temporarily fixated utilizing all of wires. Next 2 syndesmotic tight ropes provided by Arthrex were secured from lateral to medial to lateral Quadra cortically with trajectory parallel to the ankle mortise and starting approximately 2 cm proximal to the ankle mortise with reduction of the syndesmosis and medial gutter widening appreciated once secured utilizing tile roofer recommendations and package insert technique. Excess FiberWire was trimmed flush. Incision sites were flushed with copious amounts of sterile saline solution. Lateral incision was closed utilizing 2-0 Vicryl, subcutaneous tissue with 4-0 Vicryl and skin with lanny. Medial stab incisions closed with skin lanny. Dressing then applied utilizing Adaptic, sterile 4 x 4, Kerlix and Juan wrap followed by a cam boot. Tourniquet was deflated and a prompt hyperemic response was noted to the distal digits of the right lower extremity. Patient tolerated the procedure well and was transferred to the PACU with vital signs stable and vascular status intact. Following a period of postoperative monitoring he will be discharged home was prescribed Percocet 10/325 mg to be taken every 4 hours as needed for pain. He is currently under a pain management contract and receives hydrocodone 10/325 mg he is to hold these at this time. Anticipating 10 to 14 days of pain medication prescribed by myself for postoperative management before returning to his baseline pain management regimen. Of note patient has a wound being currently managed at wound care this is down to granular base without bone or tendon exposed at the right hallux. This was covered with sterile Coban during the operation. Because of an open wound and increased risk for contiguous infection will prescribe doxycycline orally for likely 4 weeks postoperatively will continue to monitor this closely.
[2020-10-05 08:23] VITALS: BP 86/61; PULSE 67; RESP 16; TEMP 36.3; O2SAT 98
[2020-10-05 08:25] VITALS: BP 96/60; PULSE 67; RESP 12; O2SAT 95
[2020-10-05 08:30] VITALS: BP 93/65; PULSE 66; RESP 13; O2SAT 93
[2020-10-05 08:35] VITALS: BP 108/66; BP 94/60; PULSE 65; PULSE 66; RESP 12; RESP 16; TEMP 36.3; O2SAT 94; O2SAT 95
[2020-10-05] MEDS: HYDROcodone-acetaminophen 10-325 mg Tablet 1 TAB PO (09:02)
[2020-10-05 09:14] VITALS: BP 103/70; PULSE 66; RESP 16; O2SAT 96
--- NOTE | 2020-10-05 09:17 | PC.NURSE ---
Pt states 8 or 9/10 pain levels post-op. Pt also sees pain management for chronic pain. Pt BP and HR were already on the lower side of normal, so I did not feel it was safe to administer any IV meds at this point. I put in a continuation order of what he already takes at home which is 1-325 norco po. Pt states some relief but not by much. Educated pt that he will have some pain because he had surgery but to take pain medications as directed.
== END 2020-10-05 09:20 | disposition home or self-care (01) ==
PROVIDERS: PCP Family Medicine; Visit Provider Podiatrist Foot & Ankle Surgery
PROC: (CPT 28899; principal; 2020-10-05 07:00)
DX: S82.851A Displaced trimalleolar fracture of right lower leg, initial encounter for closed fracture (principal); X58.XXXA Exposure to other specified factors, initial encounter; I11.0 Hypertensive heart disease with heart failure; I50.9 Heart failure, unspecified; K21.9 Gastro-esophageal reflux disease without esophagitis; E78.5 Hyperlipidemia, unspecified; E66.01 Morbid (severe) obesity due to excess calories; Z68.35 Body mass index [BMI] 35.0-35.9, adult; M19.90 Unspecified osteoarthritis, unspecified site; E11.40 Type 2 diabetes mellitus with diabetic neuropathy, unspecified
CPT/HCPCS: 27829; 12345; 73610; 76000; C1713; J0690; J1885; J2405; J2704; J3010; J3490; J7030

== ENCOUNTER → 2020-10-06 15:34 | Outpatient (BNVA) | payer MEDICAID, SELFPAY | PROVIDERS: PCP Family Medicine; Visit Provider Specialist | DX: S62.647A Nondisplaced fracture of proximal phalanx of left little finger, initial encounter for closed fracture (principal); W10.9XXA Fall (on) (from) unspecified stairs and steps, initial encounter | CPT/HCPCS: 73140 ==

== ENCOUNTER 2020-10-06 16:10 | Outpatient (CLI) | payer MEDICAID, SELFPAY | END 2020-10-06 16:11 | disposition home or self-care (01) | LOC: SPT 16:12 | PROVIDERS: PCP Family Medicine; Visit Provider Specialist | DX: Z46.89 Encounter for fitting and adjustment of other specified devices (principal); S62.617S Displaced fracture of proximal phalanx of left little finger, sequela; X58.XXXS Exposure to other specified factors, sequela | CPT/HCPCS: L3807 ==

== ENCOUNTER → 2020-10-12 14:33 | Outpatient (BNVA) | payer MEDICAID, SELFPAY | PROVIDERS: PCP Family Medicine; Visit Provider Podiatrist Foot & Ankle Surgery | DX: S82.864A Nondisplaced Maisonneuve's fracture of right leg, initial encounter for closed fracture (principal); S93.431A Sprain of tibiofibular ligament of right ankle, initial encounter; X58.XXXA Exposure to other specified factors, initial encounter | CPT/HCPCS: 73610 ==

== ENCOUNTER 2020-10-19 14:49 | Outpatient (CLI) | payer MEDICAID, SELFPAY | END 2020-10-19 14:50 | disposition home or self-care (01) | LOC: WOUND 14:49 | PROVIDERS: PCP Family Medicine; Visit Provider Thoracic Surgery (Cardiothoracic Vascular Surgery) | DX: E11.621 Type 2 diabetes mellitus with foot ulcer (principal); L97.512 Non-pressure chronic ulcer of other part of right foot with fat layer exposed | CPT/HCPCS: 97597 ==

== ENCOUNTER → 2020-10-21 14:18 | Outpatient (BNVA) | payer MEDICAID, SELFPAY | PROVIDERS: PCP Family Medicine; Visit Provider Podiatrist Foot & Ankle Surgery | DX: Z47.89 Encounter for other orthopedic aftercare (principal); S93.431D Sprain of tibiofibular ligament of right ankle, subsequent encounter; S82.864D Nondisplaced Maisonneuve's fracture of right leg, subsequent encounter for closed fracture with routine healing; W01.0XXD Fall on same level from slipping, tripping and stumbling without subsequent striking against object, subsequent encounter | CPT/HCPCS: 73610 ==

== ENCOUNTER 2020-10-26 13:06 | Outpatient (CLI) | payer MEDICAID, SELFPAY | END 2020-10-26 13:07 | disposition home or self-care (01) | LOC: WOUND 13:06 | PROVIDERS: PCP Family Medicine; Visit Provider Thoracic Surgery (Cardiothoracic Vascular Surgery) | DX: Z09 Encounter for follow-up examination after completed treatment for conditions other than malignant neoplasm (principal) | CPT/HCPCS: 99212 ==

== ENCOUNTER → 2020-10-27 13:44 | Outpatient (BNVA) | payer MEDICAID, SELFPAY | PROVIDERS: PCP Family Medicine; Visit Provider Anesthesiology | DX: M25.511 Pain in right shoulder (principal); M25.512 Pain in left shoulder; G25.81 Restless legs syndrome; E11.40 Type 2 diabetes mellitus with diabetic neuropathy, unspecified; Z79.891 Long term (current) use of opiate analgesic | CPT/HCPCS: 80053; 80061; 83036; 83721; 99214 ==

== ENCOUNTER → 2020-11-02 14:30 | Outpatient (BNVA) | payer MEDICAID, SELFPAY | PROVIDERS: PCP Family Medicine; Visit Provider Podiatrist Foot & Ankle Surgery | DX: Z98.890 Other specified postprocedural states (principal); S93.431D Sprain of tibiofibular ligament of right ankle, subsequent encounter; S82.864D Nondisplaced Maisonneuve's fracture of right leg, subsequent encounter for closed fracture with routine healing; W01.0XXD Fall on same level from slipping, tripping and stumbling without subsequent striking against object, subsequent encounter | CPT/HCPCS: 73610 ==

== ENCOUNTER → 2020-11-16 12:57 | Outpatient (BNVA) | payer MEDICAID, SELFPAY | PROVIDERS: PCP Family Medicine; Visit Provider Podiatrist Foot & Ankle Surgery | DX: S82.864A Nondisplaced Maisonneuve's fracture of right leg, initial encounter for closed fracture (principal); S93.431A Sprain of tibiofibular ligament of right ankle, initial encounter; X58.XXXA Exposure to other specified factors, initial encounter | CPT/HCPCS: 73590; 73610 ==

== ENCOUNTER → 2020-11-24 12:47 | Outpatient (BNVA) | payer MEDICAID, SELFPAY | PROVIDERS: PCP Family Medicine; Visit Provider Podiatrist Foot & Ankle Surgery | DX: S93.431D Sprain of tibiofibular ligament of right ankle, subsequent encounter (principal); S82.864D Nondisplaced Maisonneuve's fracture of right leg, subsequent encounter for closed fracture with routine healing; Z98.890 Other specified postprocedural states; X58.XXXD Exposure to other specified factors, subsequent encounter | CPT/HCPCS: 73590; 73610 ==

== ENCOUNTER 2020-11-24 13:14 | Outpatient (CLI) | payer MEDICAID, SELFPAY | END 2020-11-24 13:15 | disposition home or self-care (01) | LOC: SPT 13:14 | PROVIDERS: PCP Family Medicine; Visit Provider Podiatrist Foot & Ankle Surgery | DX: Z46.89 Encounter for fitting and adjustment of other specified devices (principal); S62.617D Displaced fracture of proximal phalanx of left little finger, subsequent encounter for fracture with routine healing; X58.XXXD Exposure to other specified factors, subsequent encounter | CPT/HCPCS: 97760; L1902 ==

== ENCOUNTER → 2020-12-07 13:01 | Outpatient (BNVA) | payer MEDICAID, SELFPAY | PROVIDERS: PCP Family Medicine; Visit Provider Podiatrist Foot & Ankle Surgery | DX: S82.864D Nondisplaced Maisonneuve's fracture of right leg, subsequent encounter for closed fracture with routine healing (principal); S93.431D Sprain of tibiofibular ligament of right ankle, subsequent encounter | CPT/HCPCS: 73590; 73610 ==

== ENCOUNTER → 2020-12-13 11:03 | Outpatient (BNVA) | payer MEDICAID, SELFPAY | PROVIDERS: PCP Family Medicine; Visit Provider Podiatrist Foot & Ankle Surgery | DX: L97.512 Non-pressure chronic ulcer of other part of right foot with fat layer exposed (principal) | CPT/HCPCS: 87635 ==

== ENCOUNTER 2020-12-17 08:46 | Day surgery (SDC) | payer MEDICAID, SELFPAY ==
[2020-12-17] VITALS (7 sets, daily range): BP systolic 119–137; BP diastolic 72–87; PULSE 56–68; RESP 18; TEMP 36.3–36.6; O2SAT 94–97
[2020-12-17 09:18] LABS: Glucose Point of Care 161 mg/dL (70-110)
[2020-12-17] MEDS: sodium chloride 0.9% 1,000 ML 30 ML IV (09:24)
--- NOTE | 2020-12-17 10:11 | ANES.PREANE2 ---
Pre-Anesthetic Assessment Pre-Anesthetic Assessment: Height/Weight: Height 1.78 m Weight 117.934 kg Temp Pulse Resp BP Pulse Ox 97.9 F 68 18 137/87 97 12/17/20 09:07 12/17/20 09:07 12/17/20 09:07 12/17/20 09:07 12/17/20 09:07 Preop Diagnosis: Hallux rigidus, right. Right hallux wound Proposed Procedure: Operation Date: 12/17/20 10:20 Proposed Procedures p hallux ipj arthroplasty(Right) - Ernesto Cali DPM Familial anesthetic complications: None Was Beta Jeff taken within 24 hours: Yes Last intake: NPO > 8 hrs Social: Social History: No alcohol and No tobacco Exam: Pre-Anes Outpt Exam: alert, oriented x 3, clear to auscultation bilaterally and regular rate & rhythm Airway: Cervical ROM: WNL MP: 4 Dentition: False Pulmonary: Pulmonary: Sleep apnea CV/HEM: CV/HEM: HTN Comments: achieves > 4 mETS GI: GI: GERD Metabolic: Metabolic: DM, Hyperlipidemia and Morbid obesity Anesthetic Plan: ASA status: 3 Anesthesia: MAC Risk of > 500 ml blood loss (7ml/kg in children): No Meds/Allergies Current Medications: Current Medications Generic Name Dose Route Start Last Admin Trade Name Freq PRN Reason Stop Dose Admin Sodium Chloride 1,000 mls @ 30 ml s/hr 12/17/20 09:00 12/17/20 09:24 Sodium Chloride 0.9% IV 12/18/20 08:59 30 mls/hr .Q24H ELISE Administration PFSH Anesthesia PFSH: Medical History Amputated great toe CHF (congestive heart failure) Diverticulosis Dyslipidemia Encounter for long-term use of opiate analgesic Essential (primary) hypertension History of amputation of left great toe Restless leg syndrome Shoulder pain Sleep apnea in adult Type 2 diabetes mellitus with other diabetic neurological complication Wound dehiscence, surgical Surgical History H/O hernia repair History of amputation of lesser toe of right foot Hx of amputation of lesser toe Left foot [place] toe and [place] [facility] [place] Status post PICC central line placement Family History Mother Cancer Denies family history of Diabetes CAD (coronary artery disease) Clotting disorder Dementia Hyperlipidemia Psychiatric illness Chronic kidney disease (CKD) Suicide Anesthesia complication Bleeding disorder Family history of premature coronary artery disease Lung disease Hypertension Stroke Social History Smoking and tobacco status: never smoked Second hand smoke exposure: No Alcohol intake: former Desire information about alcohol rehabilitation?: No Counseling given: No Adopted: No Caregiver/support person: Yes Lives independently: Yes Household members: spouse and significant other Housing: House Marital status: Life Partner Number of children: 0 Highest education level completed: High School Graduate service: Yes Current occupational status: retired Pets and animals: Yes History of recent travel: No Current gender identity: Male Yolande/Congregational: None Agree to transfusion: Yes Financial difficulty paying for basics: Somewhat Hard Data Anesthesia Other Labs: Laboratory Results - last 48 hr 12/17/20 09:16 POC Glucose 161 H Cardiac Studies: No Data to Display
--- NOTE | 2020-12-17 10:46 | P.HPUD_ITS ---
Surgery/Procedure H&P Update DATE OF PROCEDURE: December 17, 2020 DATE H&P PERFORMED: 12/07/20 H&P UPDATE INFORMATION: I have reviewed H&P completed within last 30 days, I have examined patient prior to procedure, No changes to prior documentation and [place] [facility] [place] date indicated PREOP DIAGNOSIS: Hallux rigidus, right. Right hallux wound PLANNED PROCEDURE: Operation Date: 12/17/20 10:20 Proposed Procedures p hallux ipj arthroplasty(Right) - Ernesto Cali DPM
[2020-12-17] MEDS: lidocaine 1% INJ 20 mL SUBCUT (11:18)
--- NOTE | 2020-12-17 11:46 | XR_ITS ---
WS: [id number] Right foot, 3 views, 12/17/2020 Clinical Data: post op Comparison: Right foot, 05/18/2020. Findings: The right fifth toe and most of the right fifth metatarsal have been amputated. The right second toe has been amputated. There has been removal of the distal portion of the right first toe proximal phal anx. There is air in the operative site which is the right first toe IP joint. XR/XR foot RT min 3V* 36230 Impression: 1. Recent removal of small portion of distal right proximal phalanx of the fir st toe. 2. Previous right second toe amputation, right fifth toe amputation and amputat ion of the right fifth metatarsal with only the base remaining.
[2020-12-17] MEDS: ibuprofen 800 mg tablet PO ×2 (11:48)
--- NOTE | 2020-12-17 11:54 | SUR.PHASEI ---
PT AWAKE ALERT C /O OF HEADACHE OF 10 COOL CLOTHE TO FOREHEAD, DR GUERRERO HERE AND DR TRAORE ORDERED 800MG PO IBUPROFEN GIVEN ORDERED .
--- NOTE | 2020-12-17 12:00 | P.OP_ITS ---
Operative Report Date of procedure: December 17, 2020 Pre-op Diagnosis: Hallux rigidus, right. Right hallux wound. Post-op diagnosis: same Procedure Done: Right hallux interphalangeal joint arthroplasty CPT code 40082 Implants: 3-0 Vicryl, 3-0 nylon Pathology: none sent Surgeon: Ernesto Cali D.P.M. Medical Secretary Receptionist: Antony Anesthesia: MAC Estimated blood loss: Less than 5 mL Tourniquet time: 14 minutes IV fluids: None Urine output: None Complications: None Findings: None Condition: stable Disposition: PACU Brief History: Mr. Rosales is a 50-year-old diabetic male who has had a recalcitrant wound at the plantar medial aspect of his right hallux interphalang eal joint for years. He spent last year in wound care recently healed and has reulcerated again and would like to discuss surgical offloading. I recommended a right hallux interphalangeal joint arthroplasty for increased range of motion and to reduce the prominent plantar condyle. Risks include pain, bleeding, numbness, infection, failure to correct deformity and chance for recurrence of wound and/or transfer pressure with subsequent wound formation, infection, osteomyelitis and need for amputation. Also need for oral and IV antibiotic therapy patient is agreeable wishes to proceed. Informed consent is signed by myself and patient. I initialed patient's right foot. Patient wishes to proceed Procedure: Under mild sedation the patient was brought to the operating room and placed on the operating table in supine position. A timeout was performed. Anesthesia was administered by the anesthesia service. Local anesthesia injected by myself consisting of 20 cc of 0.5% Marcaine plain and 1% lidocaine one-to-one mixture and a right male block fashion. Well-padded pneumatic tourniquet applied to the right ankle. The right lower extremity was then scrubbed, prepped and draped utilizing normal aseptic technique. Right foot was examined a weighted with an Esmarch bandage and the tourniquet inflated to 250 mmHg. Attention was directed to the medial aspect of the right hallux interphalangeal joint where a linear longitudinal incision was made full-thickness down to bone with a #15 blade. Sagittal saw was utilized to transect the head of the proximal phalanx and base of the distal phalanx of the right hallux this was excised and passed from operative field flushed with sterile saline solution and closed utilizing 3-0 Vicryl and 3-0 nylon. Bone was of appropriate density and color no signs of infection. Area was dressed with Adaptic, sterile 4 x 4, Kerlix and Juan wrap followed by application of cam boot to the right lower extremity. Tourniquet was deflated and a prompt hyperemic response is noted to the distal digits remaining at the right foot. Patient tolerated the procedure well and was transferred to the PACU with vital signs stable and vascular status intact. Following a period of postop monitoring he will be discharged home was given discharge instructions and follow-up on discharge paperwork.
--- NOTE | 2020-12-17 12:10 | ANE.PACU2 ---
Inpatient post-anesthesia follow up: Vital signs: Temperature 97.4 F Pulse Rate 64 Respiratory Rate 18 Blood Pressure 129/73 Pulse Oximetry 95 Oxygen Delivery Me thod Room Air Oxygen Flow Rate Fraction of Inspir ed Oxygen Hydration adequate: Yes Pain level: 2 Mental status: Baseline Additional Comments: Patient complaining of unilateral headache over his L eye/brow bone. He states that this headache developed 1 day after his covid test. He denies rhinorrhea/clear drainage from nose, imbalance, nausea, and vomiting. Treated w/ ibuprofen 800 mg. ? etiology: migraine vs cluster vs CSF leak. Informed patient if headache continues to get worse, or he develops N/V or imbalance, he should go to emergency room. He has guardian who will be with him for 24 hrs after surgery.
== END 2020-12-17 13:00 | disposition home or self-care (01) ==
PROVIDERS: PCP Family Medicine; Visit Provider Podiatrist Foot & Ankle Surgery
PROC: (CPT 28750; principal; 2020-12-17 10:20)
DX: M20.21 Hallux rigidus, right foot (principal); G47.30 Sleep apnea, unspecified; I10 Essential (primary) hypertension; K21.9 Gastro-esophageal reflux disease without esophagitis; E11.9 Type 2 diabetes mellitus without complications; E78.5 Hyperlipidemia, unspecified; E66.01 Morbid (severe) obesity due to excess calories; Z68.37 Body mass index [BMI] 37.0-37.9, adult
CPT/HCPCS: 28285; 36416; 73630; 82962; J0690; J2704; J3490; J7030

== ENCOUNTER → 2020-12-23 12:49 | Outpatient (BNVA) | payer MEDICAID, SELFPAY | PROVIDERS: PCP Family Medicine; Visit Provider Anesthesiology | DX: G89.29 Other chronic pain (principal); M25.519 Pain in unspecified shoulder; G25.81 Restless legs syndrome; E11.40 Type 2 diabetes mellitus with diabetic neuropathy, unspecified; S98.119 Complete traumatic amputation of unspecified great toe; S93.431D Sprain of tibiofibular ligament of right ankle, subsequent encounter; L97.511 Non-pressure chronic ulcer of other part of right foot limited to breakdown of skin; X58.XXXD Exposure to other specified factors, subsequent encounter; X58.XXXA Exposure to other specified factors, initial encounter; Z79.891 Long term (current) use of opiate analgesic | CPT/HCPCS: 99214 ==

== ENCOUNTER → 2020-12-24 11:21 | Outpatient (BNVA) | payer MEDICAID, SELFPAY | PROVIDERS: PCP Family Medicine; Visit Provider Podiatrist Foot & Ankle Surgery | DX: Z98.890 Other specified postprocedural states (principal) | CPT/HCPCS: 73630 ==

== ENCOUNTER 2021-01-08 18:27 | Inpatient (IN) | payer MEDICAID, SELFPAY ==
[2021-01-08] VITALS (9 sets, daily range): BP systolic 101–145; BP diastolic 52–86; PULSE 82–97; RESP 16–20; TEMP 37.1–37.7; O2SAT 93–96; BMI 36.3
[2021-01-08 18:43] LABS: Glucose Point of Care 260 mg/dL (70-110)
--- NOTE | 2021-01-08 19:10 | XRR_ITS ---
PROCEDURE INFORMATION: Exam: XR Right Foot Exam date and time: 01/08/2021 7:14 PM Age: 50 years old Clinical indication: Other: Infection post op; Prior surgery; Surgery date: 1-6 months; Surgery type: Toe SX 3 monts ago TECHNIQUE: Imaging protocol: XR Right foot. Views: 3 or more views. COMPARISON: CR XR foot RT min 3V* [id number] 12/24/2020 11:27 AM FINDINGS: Bones/joints: Prior amputations 2nd digit and 5th digit. Osteotomy changes in the 1st digit. The distal margin of the proximal phalanx is slightly irregular compared with prior imaging with some osteolysis of the margin. Tiny bone fragments of the distal margin are noted. No joint space dislocation. Mild hammertoe deformities of 3rd digit and 4th digit. Surgical hardware in the distal fibula and tibia. Osteophytic spurring across tarsal bones in the midfoot. Soft tissues: Soft tissue ulcer on the medial side of the great toe. XR/XR foot RT min 3V* [id number] IMPRESSION: Subtle mineralization changes are noted in the proximal phalanx distal osteotomy margin of the great toe compared with 12/24/2020. Osteomyelitis changes cannot be excluded.
[2021-01-08 19:37] LABS: Basophils # 0.1 10^3/uL (0.0-0.1); Basophils % 0.4 %; Eosinophils # 0.3 10^3/uL (0.0-0.8); Eosinophils % 1.8 %; Hematocrit 39.4 % (42.0-52.0); Hemoglobin 12.8 g/dL (11.7-16.6); Lymphocytes # 1.1 10^3/uL (0.8-4.8); Lymphocytes % 7.4 %; Mean Corpuscular HGB Conc 32.5 g/dL (30.0-36.0); Mean Corpuscular Hemoglobin 26.8 pg (28.0-34.0); Mean Corpuscular Volume 82.6 fL (80-94); Mean Platelet Volume 10.8 fL (7.4-10.4); Monocytes # 0.8 10^3/uL (0.2-0.9); Monocytes % 5.7 %; Neutrophils % 84.4 %; Nucleated Red Blood Cells % 0 %; Platelet Count 269 10^3/cmm (130-400); Red Blood Count 4.77 10^6/uL (4.1-5.3); White Blood Count 14.6 10^3/uL (4.0-10.0)
[2021-01-08] MEDS: morphine 4 mg/mL SDV 1 mL IVP ×2 (19:47→23:06)
[2021-01-08] MEDS: ondansetron 2 mg/ML SDV 2 mL 4 MG IVP (19:47)
[2021-01-08 19:52] LABS: Alanine Aminotransferase 11 U/L (0-41); Albumin Level 4.1 g/dL (3.5-5.2); Alkaline Phosphatase 103 IU/L (40-130); Anion Gap 14.1 (5-19); Aspartate Amino Transferase 11 U/L (0-40); Blood Urea Nitrogen 24 mg/dL (6-20); C Reactive Protein 45.1 mg/L (0.0-4.9); Calcium 8.7 mg/dL (8.5-10.5); Carbon Dioxide 26 mmol/L (22-29); Chloride 99 mmol/L (98-107); Globulin 3.4 g/dL (1.3-4.6); Glomerular Filtration Rate 42.5 mL/min (90-130); Glucose 205 mg/dL (65-115); Osmolality Calculated 290 mOsm/kg (285-295); Potassium 4.1 mmol/L (3.5-5.1); Sodium 135 mmol/L (136-145); Total Bilirubin 0.6 mg/dL (0.15-1.2); Total Protein 7.5 g/dL (6.6-8.7)
[2021-01-08 19:53] LABS: Lactate (Lactic Acid level) 1.2 mmol/L (0.5-2.2)
[2021-01-08] MEDS: sodium chloride 0.9% 1,000 ML 999 ML IV (19:57)
[2021-01-08] MEDS: vancomycin 1,250 MG/250 ML PIGGYBACK 250 MG IV (20:01)
--- NOTE | 2021-01-08 20:09 | ED_ITS ---
HPI - Extremity Problem General: Chief complaint: Extremity Injury, Lower Stated complaint: infection in leg Time Seen by Provider: 01/08/21 18:47 History of Present Illness: HPI Narrative: 50-year-old male diabetic who is postoperative from a debridement of the 1st toe. His sutures were removed yesterday. Today he noted increasing redness, swelling, with streaking up the leg. He is chilling a bit. He has a temperature. The redness has increased dramatically in size of course today, and he is read now to his mid anguiano. He says that he has neuropathy, but despite his neuropathy, the toe was quite painful. It is also warm. Complaint: extremity pain and extremity swelling Onset (ago): hour(s) Pain Consistency: constant Location: right and lower extremity Quality: burning Radiation: proximal Relieving factors: nothing Exacerbating factors: range of motion and weight bearing Associated symptoms: Reports fever(s) and rash; Deny chest pain Context: recent surgery/procedure Review of Systems Const: Reports: fever(s) Eyes: Denies: change in vision ENMT: Denies: odynophagia or sinus pain Card: Denies: chest pain or palpitations Resp: Denies: dyspnea, productive cough or wheezing GI: Reports: nausea; Denies: abdominal pain or vomiting : Denies: difficulty urinating or hematuria Musc: Reports: joint warmth; Denies: neck pain Skin/Breast: Reports: rash Neuro: Denies: headache(s), dizziness or vertigo Psych: Denies: anxiety PFSH ED PFSH: Medical History (Updated 01/08/21 @ 22:11 by Kallie Pham MD) Amputated great toe CHF (congestive heart failure) Diverticulosis Dyslipidemia Encounter for long-term use of opiate analgesic Essential (primary) hypertension Hallux rigidus, right foot History of amputation of left great toe Restless leg syndrome Shoulder pain Sleep apnea in adult Type 2 diabetes mellitus with other diabetic neurological complication Wound dehiscence, surgical Surgical History H/O hernia repair History of amputation of lesser toe of right foot Hx of amputation of lesser toe Left foot big toe and second toe 01/21/20 at [facility] [place] Dr. Leal Status post PICC central line placement Family History Mother Cancer Denies family history of Diabetes CAD (coronary artery disease) Clotting disorder Dementia Hyperlipidemia Psychiatric illness Chronic kidney disease (CKD) Suicide Anesthesia complication Bleeding disorder Family history of premature coronary artery disease Lung disease Hypertension Stroke Social History Smoking and tobacco status: never smoked Second hand smoke exposure: No Alcohol intake: former Desire information about alcohol rehabilitation?: No Counseling given: No Adopted: No Caregiver/support person: Yes Lives independently: Yes Household members: spouse and significant other Housing: House Marital status: Life Partner Number of children: 0 Highest education level completed: High School Graduate service: Yes Current occupational status: retired Pets and animals: Yes History of recent travel: No Current gender identity: Male Yolande/Shinto: None Agree to transfusion: Yes Financial difficulty paying for basics: Somewhat Hard Physical Exam Const: COMMON NORMALS: patient oriented x3 and alert GENERAL APPEARANCE: ill appearing HENMT: COMMON NORMALS: normocephalic HEAD & SCALP: normocephalic Eye: COMMON NORMALS: Equal, round and reactive pupils present and EOMs intact bilaterally PUPIL: Yes Equal, round and reactive pupils present Chest: COMMONS NORMALS: normal inspection of the chest Resp: COMMON NORMALS: normal respiratory effort, No retractions, No use of accessory muscles and clear to auscultation bilaterally AUSCULTATION: clear to auscultation bilaterally Cardio: COMMON NORMALS: regular rate and regular rhythm RATE: regular rate RHYTHM: regular rhythm HEART SOUNDS: no murmurs GI: COMMON NORMALS: Normal to inspection, nondistended, normoactive bowel sounds present Extremity: NARRATIVE EXTREMITY EXAM: Exam of the right foot reveals s ignificant beefy redness and swelling to the right great toe. Redness extends up the dorsal foot onto the anterior leg at mid leg length. There is swelling of the medial portion over the interphalangeal joint of the 1st digit with pointing and fluctuance. Neuro: COMMON NORMALS: patient oriented x3 SENSORIUM/ORIENTATION: Yes alert Course Consultations: Consultation #1: Time: 20:15 Consultation #2: Ankit Time: 20:25 Vital Signs: Vital signs: Vital Signs Temperature 98.7 F 01/08/21 22:24 Pulse Rate 85 01/08/21 22:24 Respiratory Rate 18 01/08/21 22:24 Blood Pressure 116/73 01/08/21 22:24 Pulse Oximetry 96 01/08/21 22:24 MDM - Extremity (Nontraumatic) MDM Narrative: Medical decision making narrative: Continued infection of the right great toe, now with spreading cellulitis up the anterior leg. He is febrile. White blood cell count of 14.6. He will come in for cellulitis. His surgeon will see him in the morning. Hospitalist is aware and will see tonight. Lab Data: Labs: Lab Results 01/08/21 01/08/21 01/08/21 Range/Units 18:41 19:10 19:17 WBC Cancelled Corrected WBC Cancelled RBC Cancelled Hgb Cancelled Hct Cancelled MCV Cancelled MCH Cancelled MCHC Cancelled RDW Cancelled Plt Count Cancelled MPV Cancelled Gran % Cancelled Neut % (Auto) Cancelled Lymph % (Auto) Cancelled [place] % (Auto) Cancelled Eos % (Auto) Cancelled Baso % (Auto) Cancelled Neut # (Auto) Cancelled Lymph # (Auto) Cancelled [place] # (Auto) Cancelled Eos # (Auto) Cancelled Baso # (Auto) Cancelled Absolute Gran (aut o) Cancelled Nucleated RBC % (a uto) Cancelled Nucleated RBCs # Cancelled Sodium 135 L (136-145) mmol/L Potassium 4.1 (3.5-5.1) mmol/L Chloride 99 (98-107) mmol/L Carbon Dioxide 26 (22-29) mmol/L Anion Gap 14.1 (5-19) BUN 24 H (6-20) mg/dL Creatinine 1.7 H (0.7-1.2) mg/dL GFR Calculation 42.5 L (90-130) mL/min Glucose 205 H (65-115) mg/dL POC Glucose 260 H (70-110) mg/dL Calculated Osmolal ity 290 (285-295) mOsm/k g Lactate (0.5-2.2) mmol/L Calcium 8.7 (8.5-10.5) mg/dL Total Bilirubin 0.6 (0.15-1.2) mg/dL AST 11 (0-40) U/L ALT 11 (0-41) U/L Alkaline Phosphata se 103 (40-130) IU/L C-Reactive Protein 45.1 H (0.0-4.9) mg/L Total Protein 7.5 (6.6-8.7) g/dL Albumin 4.1 (3.5-5.2) g/dL Globulin 3.4 (1.3-4.6) g/dL 01/08/21 01/08/21 Range/Units 19:17 19:17 WBC 14.6 H Corrected WBC RBC 4.77 Hgb 12.8 Hct 39.4 L MCV 82.6 MCH 26.8 L MCHC 32.5 RDW 15.0 Plt Count 269 MPV 10.8 H Gran % Neut % (Auto) 84.4 Lymph % (Auto) 7.4 [place] % (Auto) 5.7 Eos % (Auto) 1.8 Baso % (Auto) 0.4 Neut # (Auto) 12.30 H Lymph # (Auto) 1.1 [place] # (Auto) 0.8 Eos # (Auto) 0.3 Baso # (Auto) 0.1 Absolute Gran (aut o) Nucleated RBC % (a uto) 0 Nucleated RBCs # 0.0 Sodium (136-145) mmol/L Potassium (3.5-5.1) mmol/L Chloride (98-107) mmol/L Carbon Dioxide (22-29) mmol/L Anion Gap (5-19) BUN (6-20) mg/dL Creatinine (0.7-1.2) mg/dL GFR Calculation (90-130) mL/min Glucose (65-115) mg/dL POC Glucose (70-110) mg/dL Calculated Osmolal ity (285-295) mOsm/k g Lactate 1.2 (0.5-2.2) mmol/L Calcium (8.5-10.5) mg/dL Total Bilirubin (0.15-1.2) mg/dL AST (0-40) U/L ALT (0-41) U/L Alkaline Phosphata se (40-130) IU/L C-Reactive Protein (0.0-4.9) mg/L Total Protein (6.6-8.7) g/dL Albumin (3.5-5.2) g/dL Globulin (1.3-4.6) g/dL Discharge Plan Discharge Patient Disposition: Admitted As Inpatient Admit Provider: Kallie Pham Clinical Impression: Cellulitis of leg, right Condition: Stable Coding Level of Care Code ED Gun Stocker for Chg Fwd Exam Detailed
--- NOTE | 2021-01-08 21:51 | PM.HP ---
Providers/Chief Complaint Admitting Physician: Kallie Pham Primary Care Provider: Cindy Hsu DO Chief Complaint: infection in leg History of Present Illness 50-year-old male with past medical history significant for hypertension, dyslipidemia, gastroesophageal reflux disease, diabetes mellitus last known A1c 7.1% and chronic right hallux wound for which he recently had interphalangeal joint arthroplasty on 12/17 who is now presenting with fever and increasing erythema progressively increasing towards knee. Patient stated he started to feel fever and chills today as well as increase right foot pain. Patient was treated with bactrim two week ago as well. Upon arrival her laboratory work up showed a WBC of 14.6, Hemoglobin of 12.8, hematocrit of 39.4 and a platelet count of 269. Sodium of 135, potassium of 4.1, chloride of 99, bicarb of 26, BUN of 24, and a creatinine of 1.7. Crp of 45.1. Xray of right foot showed subtle mineralization changes are noted in the proximal phalanx distal osteotomy margin of the great toe compared with 12/24/2020. Osteomyelitis changes cannot be exclude. Podiatry was notified by ER and planned to consult in am. Patient was sitting up in bed in no apparent distress. Patient was started on broad specturm abx in ER. Review of Systems General: Reports: 10 or more systems reviewed and unremarkable except in HPI and below Medications/Allergies Home Medications Medication Instructions Recorded Confirmed Last Taken Type lisinopril 40 mg tablet 40 mg PO DAILY #90 tab 01/07/20 12/30/20 12/16/20 Rx aspirin 81 mg tablet,delayed 81 mg PO DAILY #30 tab 01/20/20 12/30/20 1 Day Ago Rx release ~12/16/20 metoprolol succinate 50 mg 50 mg PO DAILY #90 tab 05/18/20 12/30/20 12/16/20 10:00 Rx tablet,extended release 24 hr Articulating AFO #1 each 06/23/20 12/30/20 Unknown Rx amlodipine 2.5 mg tablet 2.5 mg PO .po q hs #30 tab 07/26/20 12/30/20 1 Day Ago Rx ~12/16/20 insulin aspart U-100 100 unit/mL 20 unit SUBCUT TID #15 ml 07/26/20 12/30/20 12/15/20 Rx (3 mL) subcutaneous pen Diabetic shoes with molded inserts #1 ea 09/14/20 12/30/20 Unknown Rx furosemide 20 mg PO DAILY 10/05/20 12/30/20 1 Day Ago History ~12/16/20 TKO splint #1 ea 10/06/20 12/30/20 Unknown Rx rosuvastatin 10 mg tablet 10 mg PO BEDTIME #90 tab 10/28/20 12/30/20 12/15/20 Rx ASO #1 ea 11/24/20 12/30/20 Unknown Rx liraglutide 0.6 mg/0.1 mL (18 mg/3 1.8 mg SUBCUT DAILY #3 each 12/02/20 12/30/20 12/16/20 Rx mL) subcutaneous pen injector pen needle, diabetic 32 gauge x #100 each 12/02/20 12/30/20 Unknown Rx 1/4 insulin detemir U-100 100 unit/mL 38 unit SUBCUT DAILY #15 ml 12/22/20 12/30/20 Unknown Rx (3 mL) subcutaneous pen blood sugar diagnostic See Rx Instructions .ROUTE 12/23/20 12/30/20 Unknown Rx .COMPLEX #100 strip hydrocodone 10 mg-acetaminophen 1 tab PO .5 times a day 30 Days 12/23/20 12/30/20 Unknown Rx 325 mg tablet #150 tab hydrocodone 10 mg-acetaminophen 1 tab PO .5 times a day 30 Days 12/23/20 12/30/20 Unknown Rx 325 mg tablet #150 tab nortriptyline 50 mg capsule 100 mg PO BEDTIME 30 Days #60 cap 12/23/20 12/30/20 Unknown Rx pregabalin 150 mg capsule 150 mg PO BID 30 Days #60 cap 12/23/20 12/30/20 Unknown Rx ropinirole 1 mg tablet 1 mg PO DAILY 30 Days #30 tab 12/23/20 12/30/20 Unknown Rx tramadol 50 mg tablet 100 mg PO QID PRN 30 Days #240 tab 12/23/20 12/30/20 Unknown Rx sulfamethoxazole 800 1 tab PO BID 10 Days #20 tab 12/24/20 12/30/20 Unknown Rx mg-trimethoprim 160 mg tablet pantoprazole 40 mg tablet,delayed 40 mg PO DAILY #30 tab 01/04/21 Unknown Rx release potassium chloride 10 mEq 10 - 20 meq PO Q3D #90 tab 01/04/21 Unknown Rx tablet,extended release Allergies Allergy/AdvReac Type Severity Reaction Status Date / Time No Known Allergies Allergy Verified 01/08/21 18:31 PFSH Acute PFSH: Medical History (Updated 01/08/21 @ 22:11 by Kallie Pham MD) Amputated great toe CHF (congestive heart failure) Diverticulosis Dyslipidemia Encounter for long-term use of opiate analgesic Essential (primary) hypertension Hallux rigidus, right foot History of amputation of left great toe Restless leg syndrome Shoulder pain Sleep apnea in adult Type 2 diabetes mellitus with other diabetic neurological complication Wound dehiscence, surgical Surgical History H/O hernia repair History of amputation of lesser toe of right foot Hx of amputation of lesser toe Left foot big toe and second toe 01/21/20 at [facility] Dr. Leal Status post PICC central line placement Family History Mother Cancer Denies family history of Diabetes CAD (coronary artery disease) Clotting disorder Dementia Hyperlipidemia Psychiatric illness Chronic kidney disease (CKD) Suicide Anesthesia complication Bleeding disorder Family history of premature coronary artery disease Lung disease Hypertension Stroke Social History Smoking and tobacco status: never smoked Second hand smoke exposure: No Alcohol intake: former Desire information about alcohol rehabilitation?: No Counseling given: No Adopted: No Caregiver/support person: Yes Lives independently: Yes Household members: spouse and significant other Housing: House Marital status: Life Partner Number of children: 0 Highest education level completed: High School Graduate service: Yes Current occupational status: retired Pets and animals: Yes History of recent travel: No Current gender identity: Male Yolande/Religious: None Agree to transfusion: Yes Financial difficulty paying for basics: Somewhat Hard Vitals/I&O/Wt Last Vital Signs Temp 99.8 F H 01/08/21 18:31 Pulse 82 01/08/21 21:00 Resp 16 01/08/21 21:00 BP 122/86 01/08/21 21:00 Pulse Ox 94 01/08/21 21:00 01/08/21 01/08/21 01/08/21 06:59 14:59 22:59 Intake Total 250 / 250 Balance 250 / 250 Weight last 48 hrs Weight 114.986 kg Physical Exam Narrative: EXAM NARRATIVE: General: alert, awake, oriented x 3 HEENT: Grossly unremarkable CVS: NSR CHEST: Non-labored respiration ABD; Soft, NT, ND Ext: Erythema of right hallux extending to below knee, warm to touch, no obvious drainage or abscess. Data : 01/08/21 19:17 01/08/21 19:17 Micro: Microbiology 01/08/21 19:17 Blood Culture - Preliminary Blood SPECIMEN COLLECTED 01/08/21 19:17 Blood Culture - Preliminary Blood SPECIMEN COLLECTED A&P Assessment and plan (1) Cellulitis of leg, right: Will continue patient on broad specturm abx Vancomycin pharmacy to dose Zosyn 3.375g IV q8hr May consider MRI of right foot - r/o osteomylitis Podiatry consulted in ER Follow up on blood culture Obtain VALERY Pain control CBC/ESR in am NPO at midnight Status: Acute (2) Type 2 diabetes mellitus with other diabetic neurological complication: Sliding scale insulin A1c recently in 7.1% Qachs check Diabetic diet Status: Chronic (3) Acute renal failure: Creatinine increased to 1.7 Possibly due to recent Bactrim Holding lasix NS overnight at 75cc/hr Renally dose medication Monitor urine output Repeat BMP in am Consider nephrology consult if worsening Status: Acute (4) Dyslipidemia: Verify home meds and resume in am Status: Acute Attestations Medical Necessity Statement*: Will require over 2 midnight stay in hospital for eval and treatment of right lower extremity cellulitis possible osteo requiring IV abx Time Spent in Patient Care: Greater than 35 minutes Coding Level of Care Code Acute Bariatric Program Coordinator for [facility]hel[facility] Diagnoses Cellulitis of leg, right L03.115 Type 2 diabetes mellitus with other diabetic neurological complication E11.49 Acute renal failure N17.9 Dyslipidemia E78.5
[2021-01-08 22:54] LABS: Glucose Point of Care 196 mg/dL (70-110)
[2021-01-08] MEDS: heparin 5,000 unit/mL INJ 1 mL 5000 UNIT SUBCUT (23:06)
[2021-01-08] MEDS: sodium chloride 0.9% 1,000 ML 100 ML IV (23:07)
[2021-01-08] MEDS: piperacillin-tazobactam 3.375 GM in sodium chloride 0.9% (plus) 50 ML IV (23:42)
[2021-01-09] VITALS (19 sets, daily range): BP systolic 121–169; BP diastolic 62–78; PULSE 66–95; RESP 16–20; TEMP 36.4–37.7; O2SAT 90–100
[2021-01-09 00:25] LABS: Add Urine Microscopic? NO; Urine Appearance Clear (CLEAR); Urine Color Yellow (Yellow); pH Urine 5 (5-7)
[2021-01-09 00:26] LABS: Bilirubin Urine Neg (Negative); Blood Urine Neg (Negative); Glucose Urine UA Trace (Normal); Ketones Urine Negative (Negative); Leukocyte Esterase Urine Negative (Negative); Nitrate Urine Negative (Negative); Protein Urine Neg (Negative); Urobilinogen Urine Norm (Negative)
[2021-01-09] MEDS: morphine 4 mg/mL SDV 1 mL IVP ×2 (03:22→08:08)
[2021-01-09] MEDS: acetaminophen 325 mg Tablet 650 MG PO (04:14)
--- NOTE | 2021-01-09 06:23 | PM.CONSULT ---
Providers/Reason For Consult Consulting Physican/Specialty*: Ernesto Cali D.P.M. Reason for Consult*: Diabetic foot infection right lower extremity Attending Physician: Kallie Pham Primary Care Provider: Cindy Hsu DO History of Present Illness History of Present Illness Braxton Rosales is a 50 year old male admitted to the hospital service for cellulitis of the right lower extremity. Patient has a longstanding history of recalcitrant ulceration at the right great toe with healing and reulceration for greater than 1 year history of some of these infections involved bone and he has been treated at wound care with local wound care modalities as well as oral and parenteral antibiotics as well as debridement. Due to the recalcitrant nature of this wound a right hallux interphalangeal joint arthroplasty was performed for surgical offloading and effort to reduce pedal pressure and subsequent wound formation this was performed 12/17/2020. Sutures were removed 01/07/2021 in clinic. Patient states that yesterday he was at a barbecue event [place] [address] and he started feeling pain in his right great toe noticed there was redness and swelling he also started to have subjective fevers and nausea. Review of Systems General: Reports: 10 or more systems reviewed and unremarkable except in HPI and below Const: Reports: fever(s) and change in appetite Card: Denies: chest pain or palpitations Resp: Denies: productive cough GI: Denies: abdominal pain, nausea or vomiting : Denies: flank pain Musc: Reports: extremity pain, extremity swelling, joint pain, joint redness, joint warmth, joint stiffness, limited range of motion and deformity Skin/Breast: Reports: nail changes and change in hair; Denies: rash or sores Neuro: Reports: numbness in extremities, sensory changes and difficulty walking Psych: Denies: suicidal ideation North/Lymph: Denies: easy bruising Meds/Allergies Home Medications and Allergies Home Medications Medication Instructions Recorded Confirmed Last Taken Type lisinopril 40 mg tablet 40 mg PO DAILY #90 tab 01/07/20 01/09/21 01/08/21 Rx aspirin 81 mg tablet,delayed 81 mg PO DAILY #30 tab 01/20/20 01/09/21 01/08/21 Rx release metoprolol succinate 50 mg 50 mg PO DAILY #90 tab 05/18/20 01/09/21 01/08/21 Rx tablet,extended release 24 hr Articulating AFO #1 each 06/23/20 12/30/20 Unknown Rx amlodipine 2.5 mg tablet 2.5 mg PO .po q hs #30 tab 07/26/20 12/30/20 1 Day Ago Rx ~12/16/20 insulin aspart U-100 100 unit/mL 20 unit SUBCUT TID #15 ml 07/26/20 01/09/21 01/08/21 Rx (3 mL) subcutaneous pen Diabetic shoes with molded inserts #1 ea 09/14/20 12/30/20 Unknown Rx furosemide 20 mg PO DAILY 10/05/20 01/09/21 01/08/21 History TKO splint #1 ea 10/06/20 12/30/20 Unknown Rx rosuvastatin 10 mg tablet 10 mg PO BEDTIME #90 tab 10/28/20 01/09/21 01/07/21 Rx ASO #1 ea 11/24/20 12/30/20 Unknown Rx liraglutide 0.6 mg/0.1 mL (18 mg/3 1.8 mg SUBCUT DAILY #3 each 12/02/20 01/09/21 01/08/21 Rx mL) subcutaneous pen injector pen needle, diabetic 32 gauge x #100 each 12/02/20 12/30/20 Unknown Rx 1/4 insulin detemir U-100 100 unit/mL 38 unit SUBCUT DAILY #15 ml 12/22/20 01/09/21 01/08/21 Rx (3 mL) subcutaneous pen blood sugar diagnostic See Rx Instructions .ROUTE 12/23/20 12/30/20 Unknown Rx .COMPLEX #100 strip hydrocodone 10 mg-acetaminophen 1 tab PO .5 times a day 30 Days 12/23/20 12/30/20 Unknown Rx 325 mg tablet #150 tab nortriptyline 50 mg capsule 100 mg PO BEDTIME 30 Days #60 cap 12/23/20 01/09/21 01/08/21 Rx pregabalin 150 mg capsule 150 mg PO BID 30 Days #60 cap 12/23/20 01/09/21 01/08/21 Rx ropinirole 1 mg tablet 1 mg PO DAILY 30 Days #30 tab 12/23/20 01/09/21 01/08/21 Rx tramadol 50 mg tablet 100 mg PO QID PRN 30 Days #240 tab 03/09/0401/09/21 01/08/21 Rx pantoprazole 40 mg tablet,delayed 40 mg PO DAILY #30 tab 01/04/21 01/09/21 01/08/21 Rx release potassium chloride 10 mEq 10 - 20 meq PO Q3D #90 tab 01/04/21 01/09/21 01/08/21 Rx tablet,extended release hydrocodone-acetaminophen 1 tab PO 5XD 01/09/21 01/09/21 01/08/21 History Allergies Allergy/AdvReac Type Severity Reaction Status Date / Time No Known Allergies Allergy Verified 01/08/21 18:31 Current Medications Current Medications Generic Name Dose Route Start Last Admin Trade Name Freq PRN Reason Stop Dose Admin Acetaminophen 650 mg 01/08/21 21:47 01/09/21 04:14 Acetaminophen 325 Mg Tablet PO 650 mg Q6H PRN Administration Mild/Mod Pain Or Temp >/= 101 Heparin Sodium (Beef Lung) 5,000 unit 01/08/21 22:00 01/08/21 23:06 Heparin 5,000 Unit/Ml Inj 1 Ml SUBCUT 5,000 unit Q12H ELISE Administration Sodium Chloride 1,000 mls @ 75 mls/hr 01/08/21 22:00 01/09/21 00:10 Sodium Chloride 0.9% IV Not Given .[id number] ELISE Sodium Chloride 1,000 mls @ 100 mls/hr 01/08/21 22:18 01/08/21 23:07 Sodium Chloride 0.9% IV 100 mls/hr .Q10H ELISE Administration Piperacillin Sod/Tazobactam 50 mls @ 12.5 mls/hr 01/08/21 23:30 01/09/21 03:31 Sod 3.375 gm/ Sodium Chloride IV Infused Q8H ELISE Infusion Protocol Insulin Aspart 0 unit 01/08/21 23:23 01/08/21 23:41 Insulin Aspart 100 Unit/1 Ml SUBCUT 6 unit WM&BEDTIME ELISE Administration Protocol Morphine Sulfate 4 mg 01/08/21 22:18 01/09/21 03:22 Morphine 4 Mg/Ml Sdv 1 Ml IVP 4 mg Q4H PRN Administration SEVERE PAIN PFSH Acute PFSH: Medical History (Updated 01/09/21 @ 07:21 by Ernesto Cali DPM) Amputated great toe CHF (congestive heart failure) Diverticulosis Dyslipidemia Encounter for long-term use of opiate analgesic Essential (primary) hypertension Hallux rigidus, right foot History of amputation of left great toe Restless leg syndrome Shoulder pain Sleep apnea in adult Type 2 diabetes mellitus with other diabetic neurological complication Wound dehiscence, surgical Surgical History H/O hernia repair History of amputation of lesser toe of right foot Hx of amputation of lesser toe Left foot big toe and second toe 01/21/20 at [facility] [place]. Leal Status post PICC central line placement Family History Mother Cancer Denies family history of Diabetes CAD (coronary artery disease) Clotting disorder Dementia Hyperlipidemia Psychiatric illness Chronic kidney disease (CKD) Suicide Anesthesia complication Bleeding disorder Family history of premature coronary artery disease Lung disease Hypertension Stroke Social History Smoking and tobacco status: never smoked Second hand smoke exposure: No Alcohol intake: former Desire information about alcohol rehabilitation?: No Counseling given: No Adopted: No Caregiver/support person: Yes Lives independently: Yes Household members: spouse and significant other Housing: House Marital status: Life Partner Number of children: 0 Highest education level completed: High School Graduate service: Yes Current occupational status: retired Pets and animals: Yes History of recent travel: No Current gender identity: Male Yolande/Congregational: None Agree to transfusion: Yes Financial difficulty paying for basics: Somewhat Hard Vitals/I&O/Wt Last Vital Signs Temp 100 F H 01/09/21 04:00 Pulse 84 01/09/21 04:00 Resp 20 H 01/09/21 04:00 BP 129/78 01/09/21 04:00 Pulse Ox 90 01/09/21 04:00 01/08/21 01/08/21 01/09/21 14:59 22:59 06:59 Intake Total 490 / 490 1050 / 1540 Output Total 500 / 500 Balance 490 / 490 550 / 1040 Weight last 48 hrs Weight 253 lb 8 oz Physical Exam Narrative: EXAM NARRATIVE: Patient is alert and oriented ?3 and in no acute distress. The following is a focused lower extremity exam. VASCULAR: Dorsalis pedis and posterior tibial arteries palpable +2. Capillary refill time less than 3 seconds to the distal hallux bilaterally. Calf is supple and nontender proximally and distally. Warmth at the right lower anterior leg and right foot. NEUROLOGICAL: Protective sensation intact 0-10 sites tested with [place] Johnny monofilament at the lower extremities. DERMATOLOGICAL: Cicatrix at the medial aspect of the right hallux remains healed, no dehiscence, no open wound at this time. Significant edema, erythema and warmth to the right hallux proximal lymphangitic streaking to the leg. MUSCULOSKELETAL: Status post right second toe and fifth toe amputation. Status post left great toe and left fifth toe amputation. Muscle strength 5 out of 5 in all 3 cardinal planes to the bilateral foot and ankle. No pain with posterior calf squeeze. Resp: COMMON NORMALS: normal respiratory effort, No retractions, No use of accessory muscles and clear to auscultation bilaterally EFFORT & INSPECTION: Yes able to speak in complete sentences and Yes symmetric chest movement AUSCULTATION: clear to auscultation bilaterally Cardio: COMMON NORMALS: regular rate, regular rhythm and Peripheral pulses 2+ throughout RATE: regular rate RHYTHM: regular rhythm PERIPHERAL PULSES: Peripheral pulses 2+ throughout Data Micro: Micro: Microbiology 01/08/21 19:17 Blood Culture - Pr eliminary Blood SPECIMEN [facility] 01/08/21 19:17 Blood Culture - Pr eliminary Blood SPECIMEN [facility] A&P Assessment and plan (1) Non-pressure chronic ulcer of other part of right foot with necrosis of bone: Status: Acute (2) Cellulitis and abscess of right lower extremity: Status: Acute (3) Diabetes mellitus with polyneuropathy: Status: Acute Qualifiers: Diabetes mellitus type: type 2 Qualified Code(s): E11.42 - Type 2 diabetes mellitus with diabetic polyneuropathy Mr. Rosales is a 50-year-old diabetic male with abscess and osteomyelitis to the right great toe. -Performed bedside I&D, heavy white purulence expressed from the medial aspect of the right great toe this was flushed and aerobic and anaerobic cultures taken. -X-ray shows erosive changes consistent with osteomyelitis, leukocytosis on admission, elevated CRP, cellulitis with proximal lymphangitic streaking at the right lower extremity. -I discussed surgical debridement with bone biopsy and antibiotic therapy in effort to preserve the toe versus amputation of the toe. Patient is strongly in favor of toe amputation. He states that he does not want to go through the hassle of surgical debridement and long-term antibiotic therapy as he does not believe that it will be successful ray-term, he states that the toe wound has been present for years and he would like to have it removed. -Patient will go for right hallux amputation this morning, has been n.p.o. since midnight, Covid screening has been performed, results pending. -Nonweightbearing to the right forefoot during his hospitalization, may heel touch with the right heel for transfers. -Recommend continuation of empiric IV antibiotics, will perform hallux amputation today and plan for primary delayed closure in the next 2 to 3 days pending soft tissue quality. Podiatry will follow, appreciate medical management from hospitalist. Ernesto ChavarriaP.Hilda. [phone]. 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
[2021-01-09 06:42] LABS: Glucose Point of Care 187 mg/dL (70-110)
--- NOTE | 2021-01-09 06:42 | PC.NURSE ---
Dr Goodman Dr Cali here to see pt. Cultures collected from great toe. Dressing applied by
[2021-01-09 06:49] LABS: Basophils # 0.1 10^3/uL (0.0-0.1); Basophils % 0.6 %; Eosinophils # 0.3 10^3/uL (0.0-0.8); Hematocrit 38.2 % (42.0-52.0); Hemoglobin 11.2 g/dL (11.7-16.6); Lymphocytes # 1.1 10^3/uL (0.8-4.8); Lymphocytes % 10.5 %; Mean Corpuscular HGB Conc 29.3 g/dL (30.0-36.0); Mean Corpuscular Hemoglobin 26.2 pg (28.0-34.0); Mean Corpuscular Volume 89.5 fL (80-94); Mean Platelet Volume 11.1 fL (7.4-10.4); Monocytes # 0.8 10^3/uL (0.2-0.9); Monocytes % 7.7 %; Neutrophils # 8.45 10^3/uL (1.8-7.7); Neutrophils % 77.9 %; Nucleated Red Blood Cells % 0 %; Platelet Count 216 10^3/cmm (130-400); Red Blood Count 4.27 10^6/uL (4.1-5.3); Red Cell Distribution Width 15.5 % (12.1-15.1); White Blood Count 10.8 10^3/uL (4.0-10.0)
[2021-01-09 07:20] LABS: Alanine Aminotransferase 7 U/L (0-41); Albumin Level 3.3 g/dL (3.5-5.2); Alkaline Phosphatase 89 IU/L (40-130); Anion Gap 13.5 (5-19); Aspartate Amino Transferase 9 U/L (0-40); Blood Urea Nitrogen 25 mg/dL (6-20); Calcium 7.8 mg/dL (8.5-10.5); Carbon Dioxide 22 mmol/L (22-29); Chloride 103 mmol/L (98-107); Glucose 190 mg/dL (65-115); Magnesium 1.9 mg/dL (1.7-2.3); Osmolality Calculated 289 mOsm/kg (285-295); Potassium 3.5 mmol/L (3.5-5.1); Sodium 135 mmol/L (136-145); Total Bilirubin 0.5 mg/dL (0.15-1.2); Total Protein 6.3 g/dL (6.6-8.7)
[2021-01-09] MEDS: piperacillin-tazobactam 3.375 GM in sodium chloride 0.9% (plus) 50 ML IV ×2 (08:01→15:51)
[2021-01-09 08:02] LABS: Estmated Average Glucose 183
--- NOTE | 2021-01-09 09:11 | ANES.PREANE2 ---
Pre-Anesthetic Assessment Pre-Anesthetic Assessment: Height/Weight: Height 1.78 m Weight 114.986 kg Temp Pulse Resp BP Pulse Ox 98.7 F 66 17 157/66 98 01/09/21 08:55 01/09/21 08:55 01/09/21 08:55 01/09/21 08:55 01/09/21 08:55 Preop Diagnosis: Hallux rigidus, right. Right hallux wound. Proposed Procedure: Operation Date: 01/09/21 11:15 Proposed Procedures p Amputation Toe/s(Right) - Ernesto Cali DPM Familial anesthetic complications: None Was Beta Jeff taken within 24 hours: N/A Was Clonidine taken within 24 hours: N/A Last intake: npo Social: Social History: No alcohol and No tobacco Exam: Pre-Anes Outpt Exam: alert, oriented x 3, clear to auscultation bilaterally and regular rate & rhythm Airway: Cervical ROM: WNL MP: 3 Dentition: False Additional comments: coombs Pulmonary: Pulmonary: Sleep apnea CV/HEM: CV/HEM: HTN GI: GI: GERD and Hiatus hernia Metabolic: Metabolic: DM and Morbid obesity Neuropsych: Neuropsych: Neuropathy Anesthetic Plan: ASA status: 3 Anesthesia: MAC Risk of > 500 ml blood loss (7ml/kg in children): No Meds/Allergies Current Medications: Current Medications Generic Name Dose Route Start Last Admin Trade Name Freq PRN Reason Stop Dose Admin Acetaminophen 650 mg 01/08/21 21:47 01/09/21 04:14 Acetaminophen 32 5 Mg Tablet PO 650 mg Q6H PRN Administration Mild/Mod Pain Or Temp >/= 101 Heparin Sodium (Be ef Lung) 5,000 unit 01/08/21 22:00 01/08/21 23:06 Heparin 5,000 Un it/Ml Inj 1 Ml SUBCUT 5,000 unit Q12H ELISE Administration Sodium Chloride 1,000 mls @ 75 ml s/hr 01/08/21 22:00 01/09/21 00:10 Sodium Chloride 0.9% IV Not Given .[id number] ELISE Sodium Chloride 1,000 mls @ 100 m ls/hr 01/08/21 22:18 01/08/21 23:07 Sodium Chloride 0.9% IV 100 mls/hr .Q10H ELISE Administration Piperacillin Sod/T azobactam 50 mls @ 12.5 mls /hr 01/08/21 23:30 01/09/21 08:01 Sod 3.375 gm/ So dium Chloride IV 12.5 mls/hr Q8H ELISE Administration Protocol Insulin Aspart 0 unit 01/08/21 23:23 01/09/21 08:30 Insulin Aspart 1 00 Unit/1 Ml SUBCUT 3 unit WM&BEDTIME ELISE Administration Protocol Morphine Sulfate 4 mg 01/08/21 22:18 01/09/21 08:08 Morphine 4 Mg/Ml Sdv 1 Ml IVP 4 mg Q4H PRN Administration SEVERE PAIN PFSH Anesthesia PFSH: Medical History (Updated 01/09/21 @ 07:21 by Ernesto Cali DPM) Amputated great toe CHF (congestive heart failure) Diverticulosis Dyslipidemia Encounter for long-term use of opiate analgesic Essential (primary) hypertension Hallux rigidus, right foot History of amputation of left great toe Restless leg syndrome Shoulder pain Sleep apnea in adult Type 2 diabetes mellitus with other diabetic neurological complication Wound dehiscence, surgical Surgical History H/O hernia repair History of amputation of lesser toe of right foot Hx of amputation of lesser toe Left foot big toe and second toe 01/21/20 at [facility] Dr. Leal Status post PICC central line placement Family History Mother Cancer Denies family history of Diabetes CAD (coronary artery disease) Clotting disorder Dementia Hyperlipidemia Psychiatric illness Chronic kidney disease (CKD) Suicide Anesthesia complication Bleeding disorder Family history of premature coronary artery disease Lung disease Hypertension Stroke Social History Smoking and tobacco status: never smoked Second hand smoke exposure: No Alcohol intake: former Desire information about alcohol rehabilitation?: No Counseling given: No Adopted: No Caregiver/support person: Yes Lives independently: Yes Household members: spouse and significant other Housing: House Marital status: Life Partner Number of children: 0 Highest education level completed: High School Graduate service: Yes Current occupational status: retired Pets and animals: Yes History of recent travel: No Current gender identity: Male Yolande/Sabianism: None Agree to transfusion: Yes Financial difficulty paying for basics: Somewhat Hard Data Anesthesia CBC & Chem 7: 01/09/21 06:05 01/09/21 06:05 Other Labs: Laboratory Results - last 48 hr 01/08/21 01/08/21 01/08/21 18:41 19:10 19:17 WBC Cancelled Corrected WBC Cancelled RBC Cancelled Hgb Cancelled Hct Cancelled MCV Cancelled MCH Cancelled MCHC Cancelled RDW Cancelled Plt Count Cancelled MPV Cancelled Gran % Cancelled Neut % (Auto) Cancelled Lymph % (Auto) Cancelled Crawford % (Auto) Cancelled Eos % (Auto) Cancelled Baso % (Auto) Cancelled Neut # (Auto) Cancelled Lymph # (Auto) Cancelled Crawford # (Auto) Cancelled Eos # (Auto) Cancelled Baso # (Auto) Cancelled Absolute Gran (auto) Cancelled Nucleated RBC % (auto) Cancelled Nucleated RBCs # Cancelled ESR Sodium 135 L Potassium 4.1 Chloride 99 Carbon Dioxide 26 Anion Gap 14.1 BUN 24 H Creatinine 1.7 H GFR Calculation 42.5 L Glucose 205 H POC Glucose 260 H Estimat Average Glucose Hemoglobin A1c Calculated Osmolality 290 Lactate Calcium 8.7 Magnesium Total Bilirubin 0.6 AST 11 ALT 11 Alkaline Phosphatase 103 C-Reactive Protein 45.1 H Total Protein 7.5 Albumin 4.1 Globulin 3.4 Urine Color Urine Appearance Urine pH Ur Specific [place] Urine Protein Urine Glucose (UA) Urine Ketones Urine Blood Urine Nitrate Urine Bilirubin Urine Urobilinogen Ur Leukocyte Esterase 01/08/21 01/08/21 01/08/21 19:17 19:17 22:50 WBC 14.6 H Corrected WBC RBC 4.77 Hgb 12.8 Hct 39.4 L MCV 82.6 MCH 26.8 L MCHC 32.5 RDW 15.0 Plt Count 269 MPV 10.8 H Gran % Neut % (Auto) 84.4 Lymph % (Auto) 7.4 Crawford % (Auto) 5.7 Eos % (Auto) 1.8 Baso % (Auto) 0.4 Neut # (Auto) 12.30 H Lymph # (Auto) 1.1 Crawford # (Auto) 0.8 Eos # (Auto) 0.3 Baso # (Auto) 0.1 Absolute Gran (auto) Nucleated RBC % (auto) 0 Nucleated RBCs # 0.0 ESR Sodium Potassium Chloride Carbon Dioxide Anion Gap BUN Creatinine GFR Calculation Glucose POC Glucose 196 H Estimat Average Glucose Hemoglobin A1c Calculated Osmolality Lactate 1.2 Calcium Magnesium Total Bilirubin AST ALT Alkaline Phosphatase C-Reactive Protein Total Protein Albumin Globulin Urine Color Urine Appearance Urine pH Ur Specific [place] Urine Protein Urine Glucose (UA) Urine Ketones Urine Blood Urine Nitrate Urine Bilirubin Urine Urobilinogen Ur Leukocyte Esterase 01/09/21 01/09/21 01/09/21 00:01 06:05 06:05 WBC 10.8 H Corrected WBC RBC 4.27 Hgb 11.2 L Hct 38.2 L MCV 89.5 D MCH 26.2 L MCHC 29.3 L D RDW 15.5 H Plt Count 216 MPV 11.1 H Gran % Neut % (Auto) 77.9 Lymph % (Auto) 10.5 Crawford % (Auto) 7.7 Eos % (Auto) 3.0 Baso % (Auto) 0.6 Neut # (Auto) 8.45 H Lymph # (Auto) 1.1 Crawford # (Auto) 0.8 Eos # (Auto) 0.3 Baso # (Auto) 0.1 Absolute Gran (auto) Nucleated RBC % (auto) 0 Nucleated RBCs # 0.0 ESR Cancelled Sodium Potassium Chloride Carbon Dioxide Anion Gap BUN Creatinine GFR Calculation Glucose POC Glucose Estimat Average Glucose Hemoglobin A1c Calculated Osmolality Lactate Calcium Magnesium Total Bilirubin AST ALT Alkaline Phosphatase C-Reactive Protein Total Protein Albumin Globulin Urine Color Yellow Urine Appearance Clear Urine pH 5 Ur Specific [place] 1.020 Urine Protein Neg Urine Glucose (UA) Trace H Urine Ketones Negative Urine Blood Neg Urine Nitrate Negative Urine Bilirubin Neg Urine Urobilinogen Norm Ur Leukocyte Esterase Negative 01/09/21 01/09/21 01/09/21 06:05 06:05 06:20 WBC Corrected WBC RBC Hgb Hct MCV MCH MCHC RDW Plt Count MPV Gran % Neut % (Auto) Lymph % (Auto) Crawford % (Auto) Eos % (Auto) Baso % (Auto) Neut # (Auto) Lymph # (Auto) Crawford # (Auto) Eos # (Auto) Baso # (Auto) Absolute Gran (auto) Nucleated RBC % (auto) Nucleated RBCs # ESR Cancelled Sodium 135 L Potassium 3.5 Chloride 103 Carbon Dioxide 22 Anion Gap 13.5 BUN 25 H Creatinine 1.3 H GFR Calculation 58.0 L Glucose 190 H POC Glucose Estimat Average Glucose 183 Hemoglobin A1c 8.0 H Calculated Osmolality 289 Lactate Calcium 7.8 L Magnesium 1.9 Total Bilirubin 0.5 AST 9 ALT 7 Alkaline Phosphatase 89 C-Reactive Protein Total Protein 6.3 L Albumin 3.3 L Globulin 3.0 Urine Color Urine Appearance Urine pH Ur Specific [place] Urine Protein Urine Glucose (UA) Urine Ketones Urine Blood Urine Nitrate Urine Bilirubin Urine Urobilinogen Ur Leukocyte Esterase 01/09/21 06:36 WBC Corrected WBC RBC Hgb Hct MCV MCH MCHC RDW Plt Count MPV Gran % Neut % (Auto) Lymph % (Auto) Crawford % (Auto) Eos % (Auto) Baso % (Auto) Neut # (Auto) Lymph # (Auto) Crawford # (Auto) Eos # (Auto) Baso # (Auto) Absolute Gran (auto) Nucleated RBC % (auto) Nucleated RBCs # ESR Sodium Potassium Chloride Carbon Dioxide Anion Gap BUN Creatinine GFR Calculation Glucose POC Glucose 187 H Estimat Average Glucose Hemoglobin A1c Calculated Osmolality Lactate Calcium Magnesium Total Bilirubin AST ALT Alkaline Phosphatase C-Reactive Protein Total Protein Albumin Globulin Urine Color Urine Appearance Urine pH Ur Specific [place] Urine Protein Urine Glucose (UA) Urine Ketones Urine Blood Urine Nitrate Urine Bilirubin Urine Urobilinogen Ur Leukocyte Esterase Micro: Microbiology 01/08/21 19:17 Blood Culture - Preliminary Blood SPECIMEN COLLECTED 01/08/21 19:17 Blood Culture - Preliminary Blood SPECIMEN COLLECTED Cardiac Studies: No Data to Display
--- NOTE | 2021-01-09 09:23 | W.PM.OPSUD ---
Surgery/Procedure H&P Update DATE OF PROCEDURE: January 09, 2021 DATE H&P PERFORMED: 01/09/21 H&P UPDATE INFORMATION: I have reviewed H&P completed within last 30 days, I have examined patient prior to procedure, No changes to prior documentation and H&P is in [facility] [place] on date indicated PREOP DIAGNOSIS: Hallux rigidus, right. Right hallux wound. PLANNED PROCEDURE: Operation Date: 01/09/21 11:15 Proposed Procedures p Amputation Toe/s(Right) - Ernesto Cali DPM
--- NOTE | 2021-01-09 09:33 | P.OP_ITS ---
Operative Report Date of procedure: January 09, 2021 Pre-op Diagnosis: Osteomyelitis right hallux, abscess right hallux Post-op diagnosis: same Post-op Findings: Devitalized soft tissue and bone right hallux Procedure Done: Right hallux amputation CPT code 95899 Implants: 4-0 nylon retention sutures Specimens removed/disposition: Proximal phalanx right hallux sent to microbiology for Gram stain and culture Pathology: Remaining right hallux sent to pathology for permanent Surgeon: Ernesto Cali D.P.M. Operation Research Analyst: Ronit Anesthesia: MAC Estimated blood loss: Less than 10 mL Tourniquet time: Tourniquet time 4 minutes IV fluids: None Urine output: None Complications: None Findings: Devitalized soft tissue and bone right hallux Condition: stable Disposition: floor Brief History: Recalcitrant right hallux wound greater than 1 year with a variety of treatment modalities in the past including local wound care, offloading, surgical debridement, parenteral and oral antibiotics. Patient requesting right hallux amputation. Risks include pain, bleeding, numbness, infection, transfer pressure and transfer lesion, future infections due to alt ered biomechanics, need for higher levels of amputation and oral as well as parenteral antibiotics. Patient is agreeable wishes to proceed. He is n.p.o. since midnight. Covid screening pending. Informed consent signed by myself and patient all questions answered to patient satisfaction I initialed his right lower extremity. No guarantees written, expressed or implied. Procedure: Under mild sedation the patient was brought to the operating room and placed on the operating table in supine position. A timeout was performed. Anesthesia was then administered by the anesthesia service. Local anesthesia injected by myself consisting of 20 cc of 0.5% Marcaine plain and 1% lidocaine plain in a one-to-one mixture and a right male block fashion. Well-padded pneumatic tourniquet applied to the right ankle. Right lower extremity was scrubbed, prepped and draped utilizing normal aseptic technique. Right foot was elevated and the tourniquet inflated to 250 mmHg. Attention was directed to the right hallux where a fishmouth incision was carried out down to bone full-thickness with a #10 blade and the right hallux was disarticulated at the metatarsophalangeal joint. The first metatarsal head appeared viable bright white and of appropriate density I did not have any tracking of purulent drainage in the extensor or flexor tendons the level of amputation appeared appropriate, given the soft tissue erythema that was approximately streaking to the level of the leg the wound was irrigated and retention sutures only were utilized with plans for delayed closure and further debridement once soft tissue has improved with IV antibiotics and removal of the initial source of infection. Will monitor closely and return to the operating room once appropriate likely 2 to 3 days. The proximal phalanx was sent to microbiology for Gram stain and culture and the remaining hallux of the right foot was sent to pathology for permanent. All bleeders were ligated and cauterized as necessary once tourniquet was dropped. Tourniquet time total was 4 minutes. Incision site tested with vancomycin powder, dressings consisting of saline wet-to-dry, 4 x 4's, Kerlix, ABD pad and Juan wrap to the right foot. Patient tolerated the procedure well and was transferred to the PACU with vital signs stable and vascular status intact. Will be transferred back to the floor to continue empiric IV antibiotics.
[2021-01-09] MEDS: lidocaine 1% INJ 20 mL INJECTION (10:05)
[2021-01-09] MEDS: vancomycin 1,000 MG SDV 1000 MG XX (10:15)
[2021-01-09 10:49] LABS: Glucose Point of Care 167 mg/dL (70-110)
--- NOTE | 2021-01-09 11:17 | XRR_ITS ---
PROCEDURE INFORMATION: Exam: XR Right Foot Exam date and time: 01/09/2021 11:18 AM Age: 50 years old Clinical indication: Right foot pain. Postoperative. TECHNIQUE: Imaging protocol: XR Right foot. Views: 1 or 2 views. COMPARISON: CR XR foot RT min 3V* [id number] 01/08/2021 7:12 PM FINDINGS: There has been prior transmetatarsal amputation of the 5th ray. There has been remote disarticulation of the 2nd toe. There has been interval disarticulation of the great toe at the metatarsophalangeal joint. There is soft tissue swelling in the region of surgery with overlying bandage material. No acute osseous destruction is seen to suggest osteomyelitis. No definite soft tissue gas. Tiny posterior cranial spur. Distal fibular and tibial hardware is noted. XR/XR foot RT 2V [id number] IMPRESSION: There has been interval disarticulation of the great toe at the metatarsophalangeal joint. There is soft tissue swelling in the region of surgery with overlying bandage material. No acute osseous destruction is seen to suggest osteomyelitis. No definite soft tissue gas.
[2021-01-09] MEDS: vancomycin 1,250 MG/250 ML PIGGYBACK 250 MG IV ×2 (11:43→23:47)
[2021-01-09] MEDS: heparin 5,000 unit/mL INJ 1 mL 5000 UNIT SUBCUT ×2 (11:44→21:22)
[2021-01-09] MEDS: sodium chloride 0.9% 1,000 ML 75 ML IV (11:44)
[2021-01-09] MEDS: oxyCODONE-APAP 5-325 mg Tablet 1 TAB PO (11:50)
[2021-01-09] MEDS: morphine 4 mg/mL SDV 1 mL 2 MG IVP ×2 (13:27→21:10)
[2021-01-09 17:12] LABS: Erythrocyte Sedimentation Rate 29 mm/hr (0-10)
--- NOTE | 2021-01-09 17:15 | PM.PN ---
Subjective Subjective: Interval history: Overnight labs and H&P reviewed, underwent right hallux amputation this morning with Dr. Cali. Tolerated procedure well, no acute complaints at this time. Blood culture from January 08 reported 1/4+ for gram-positive cocci in clusters, identification to follow. Medications: Reviewed: Yes Vitals/I&O/Wt Last Vital Signs Temp 97.6 F 01/09/21 15:10 Pulse 80 01/09/21 15:10 Resp 18 01/09/21 15:10 BP 130/66 01/09/21 15:10 Pulse Ox 100 01/09/21 15:10 01/09/21 01/09/21 01/09/21 06:59 14:59 22:59 Intake Total 1050 / 1540 1300 / 1300 Output Total 500 / 500 0 / 0 400 / 400 Balance 550 / 1040 1300 / 1300 -400 / 900 Weight last 48 hrs Weight 114.986 kg Physical Exam Narrative: EXAM NARRATIVE: GEN: Awake, alert and oriented, no acute distress CVS: S1S2 N RS: CTA B/L Abd: Soft, nt/nd , bs+ PRODUCTION GENERALIST: no focal neuro deficits Data : 01/09/21 06:05 01/09/21 06:05 Micro: Microbiology 01/08/21 19:17 Blood Culture - Preliminary Blood Gram positive cocci 01/09/21 10:15 Gram Stain - Final Toe - #1 01/08/21 19:17 Blood Culture - Preliminary Blood SPECIMEN COLLECTED A&P Assessment and plan (1) Cellulitis of leg, right: Will continue patient on broad specturm abx Vancomycin pharmacy to dose Zosyn 3.375g IV q8hr Status post right hallux amputation this morning for osteomyelitis and abscess with Dr. Cali Blood culture 194+ for GPC in clusters, await identification, vancomycin to continue in the interim Status: Acute (2) Type 2 diabetes mellitus with other diabetic neurological complication: Sliding scale insulin A1c recently in 7.1% Qachs check Diabetic diet Status: Chronic (3) Acute renal failure: Creatinine increased to 1.7 Possibly due to recent Bactrim Holding lasix NS overnight at 75cc/hr Renally dose medication Monitor urine output Repeat BMP in am Status: Acute (4) Dyslipidemia: Verify home meds and resume in am Status: Acute Attestations Medical Necessity Statement*: Status post amputation, postop monitoring, ongoing need for IV antibiotics and discharge planning Coding Level of Care Code Acute Electric Truck Operator for [facility] Fwd Diagnoses Cellulitis of leg, right L03.115 Type 2 diabetes mellitus with other diabetic neurological complication E11.49 Acute renal failure N17.9 Dyslipidemia E78.5
[2021-01-09 17:29] LABS: Glucose Point of Care 195 mg/dL (70-110)
[2021-01-09 19:30] LABS: Vancomycin Trough 13.2 ug/mL (10-15)
[2021-01-09 21:29] LABS: Glucose Point of Care 198 mg/dL (70-110)
[2021-01-10] VITALS (9 sets, daily range): BP systolic 107–164; BP diastolic 62–75; PULSE 63–80; RESP 14–19; TEMP 36.4–36.8; O2SAT 94–97
[2021-01-10] MEDS: ondansetron 2 mg/ML SDV 2 mL 4 MG IVP ×2 (00:33→07:41)
[2021-01-10] MEDS: piperacillin-tazobactam 3.375 GM in sodium chloride 0.9% (plus) 50 ML IV ×3 (01:04→15:00)
[2021-01-10] MEDS: oxyCODONE-APAP 5-325 mg Tablet 1 TAB PO ×4 (02:19→21:25)
[2021-01-10 06:04] LABS: Basophils # 0.1 10^3/uL (0.0-0.1); Basophils % 0.5 %; Eosinophils # 0.2 10^3/uL (0.0-0.8); Eosinophils % 2.5 %; Hematocrit 33.4 % (42.0-52.0); Hemoglobin 10.6 g/dL (11.7-16.6); Lymphocytes # 1.1 10^3/uL (0.8-4.8); Mean Corpuscular HGB Conc 31.7 g/dL (30.0-36.0); Mean Corpuscular Hemoglobin 26.2 pg (28.0-34.0); Mean Corpuscular Volume 82.7 fL (80-94); Monocytes # 0.7 10^3/uL (0.2-0.9); Monocytes % 7.3 %; Neutrophils # 7.56 10^3/uL (1.8-7.7); Neutrophils % 78.3 %; Nucleated Red Blood Cells % 0 %; Platelet Count 214 10^3/cmm (130-400); Red Blood Count 4.04 10^6/uL (4.1-5.3); White Blood Count 9.7 10^3/uL (4.0-10.0)
[2021-01-10 06:39] LABS: Alanine Aminotransferase 31 U/L (0-41); Albumin Level 3.3 g/dL (3.5-5.2); Alkaline Phosphatase 108 IU/L (40-130); Anion Gap 12.7 (5-19); Aspartate Amino Transferase 26 U/L (0-40); Blood Urea Nitrogen 16 mg/dL (6-20); Calcium 7.9 mg/dL (8.5-10.5); Carbon Dioxide 21 mmol/L (22-29); Chloride 103 mmol/L (98-107); Glomerular Filtration Rate 70.3 mL/min (90-130); Glucose 125 mg/dL (65-115); Osmolality Calculated 279 mOsm/kg (285-295); Potassium 3.7 mmol/L (3.5-5.1); Sodium 133 mmol/L (136-145); Total Bilirubin 0.6 mg/dL (0.15-1.2); Total Protein 6.3 g/dL (6.6-8.7)
[2021-01-10 06:48] LABS: Glucose Point of Care 119 mg/dL (70-110)
--- NOTE | 2021-01-10 07:26 | P.PN_ITS ---
Subjective Subjective: Interval history: 1 day status post right hallux amputation. Endorses nausea, denies fevers or chills. Denies any pain at the operative site. No leukocytosis, patient is afebrile. Vitals/I&O/Wt Last Vital Signs Temp 98.2 F 01/10/21 04:00 Pulse 76 01/10/21 04:00 Resp 19 H 01/10/21 04:00 BP 107/66 01/10/21 04:00 Pulse Ox 94 01/10/21 04:00 01/09/21 01/10/21 01/10/21 22:59 06:59 14:59 Intake Total 170 / 1470 300 / 1770 Output Total 900 / 900 700 / 1600 Balance -730 / 570 -400 / 170 Weight last 48 hrs Weight 253 lb 8 oz Physical Exam Narrative: EXAM NARRATIVE: Patient is alert and oriented ?3 and in no acute distress. The following is a focused lower extremity exam. VASCULAR: Dorsalis pedis and posterior tibial arteries palpable +2. Calf is supple and nontender proximally and distally. No warmth at the right lower an terior leg and right foot. NEUROLOGICAL: Protective sensation intact 0-10 sites tested with [place] W einstein monofilament at the lower extremities. DERMATOLOGICAL: No strikethrough bleeding at the dressings right lower extremity. Decreased erythema subsiding from the line of demarcation. MUSCULOSKELETAL: Status post right hallux amputation. Status post right second toe and fifth toe amputation. Status post left great toe and left fifth toe amputation. Muscle strength 5 out of 5 in all 3 cardinal planes to the bilateral foot and ankle. No pain with posterior calf squeeze. Data : 01/10/21 05:14 01/10/21 05:14 Micro: Microbiology 01/10/21 05:17 Blood Culture - Preliminary Blood SPECIMEN COLLECTED 01/10/21 05:14 Blood Culture - Preliminary Blood SPECIMEN COLLECTED 01/08/21 19:17 Blood Culture - Preliminary Blood NEGATIVE TO DATE 01/08/21 19:17 Blood Culture - Preliminary Blood Gram positive cocci 01/09/21 10:15 Gram Stain - Final Toe - #1 A&P Assessment and plan (1) Non-pressure chronic ulcer of other part of right foot with necrosis of bone: Status: Acute (2) Cellulitis and abscess of right lower extremity: Status: Acute (3) Diabetes mellitus with polyneuropathy: Status: Acute Qualifiers: Diabetes mellitus type: type 2 Qualified Code(s): E11.42 - Type 2 diabetes mellitus with diabetic polyneuropathy Mr. Rosales is a 50-year-old diabetic male with abscess and osteomyelitis to the right great toe. -1 day status post right hallux amputation. -Nonweightbearing to the right forefoot during his hospitalization, may heel touch with the right heel for transfers. -Patient receiving empiric IV antibiotics -Blood cultures shows gram-positive cocci -Plan for primary delayed closure 01/11/2021 at noon Podiatry will follow, appreciate medical management from hospitalist. Ernesto Cali D.P.M. [phone]. Attestations Medical Necessity Statement*: diabetic foot infection Coding Level of Care Code Acute Solution Engineer for [facility] Diagnoses Non-pressure chronic ulcer of other part of right foot with necrosis of bone L97.514 Cellulitis and abscess of right lower extremity L03.115; L02.415 Diabetes mellitus with polyneuropathy E11.42 Diabetes mellitus type: type 2
[2021-01-10] MEDS: sodium chloride 0.9% 1,000 ML 75 ML IV (07:50)
--- NOTE | 2021-01-10 09:37 | PM.PN ---
Subjective Subjective: Interval history: Patient was seen and examined this morning, S/P DAY 1 : right hallux amputation. He was complaining of nausea. Has remained hemodynamically stable. Medications: Reviewed: Yes Vitals/I&O/Wt Last Vital Signs Temp 97.9 F 01/10/21 08:00 Pulse 80 01/10/21 08:00 Resp 18 01/10/21 08:00 BP 164/75 01/10/21 08:00 Pulse Ox 95 01/10/21 08:00 01/09/21 01/10/21 01/10/21 22:59 06:59 14:59 Intake Total 170 / 1470 1300 / 2770 240 / 240 Output Total 900 / 900 700 / 1600 400 / 400 Balance -730 / 570 600 / 1170 -160 / -160 Weight last 48 hrs Weight 114.986 kg Physical Exam Narrative: EXAM NARRATIVE: EXAM NARRATIVE: GEN: Awake, alert and oriented, no acute distress CVS: S1S2 N RS: CTA B/L Abd: Soft, nt/nd , bs+ RIPENING ROOM OPERATOR: no focal neuro deficits MUSCULOSKELETAL: Status post right hallux amputation. Status post right second toe and fifth toe amputation. Status post left great toe and left fifth toe amputation. Muscle strength 5 out of 5 in all 3 cardinal planes to the bilateral foot and ankle. No pain with posterior calf squeeze. Data : 01/10/21 05:14 01/10/21 05:14 Micro: Microbiology 01/08/21 19:17 Blood Culture - Preliminary Blood 01/08/21 19:17 Blood Culture - Preliminary Blood Gram positive cocci 01/10/21 05:17 Blood Culture - Preliminary Blood SPECIMEN COLLECTED 01/10/21 05:14 Blood Culture - Preliminary Blood SPECIMEN COLLECTED 01/09/21 10:15 Gram Stain - Final Toe - #1 A&P Assessment and plan (1) Cellulitis of leg, right: Blood culture: 01/08: Staph aureus Repeat blood culture: 01/10 : Tissue culture: Toe : Staph aureus We will order 2D echo: If blood culture is MRSA Will continue patient on broad spectrum abx Vancomycin pharmacy to dose Zosyn 3.375g IV q8hr Status post right hallux amputation this morning for osteomyelitis and abscess with Dr. Cali Blood culture 194+ for GPC in clusters, await identification, vancomycin to continue in the interim Status: Acute (2) Type 2 diabetes mellitus with other diabetic neurological complication: Sliding scale insulin A1c recently in 7.1% Qachs check Diabetic diet Status: Chronic (3) Acute renal failure: Creatinine increased to 1.7 Current SCR : 1.1 Possibly due to recent Bactrim Holding lasix Initially on NS at 75cc/hr Renally dose medication Monitor urine output Repeat BMP in am Status: Acute (4) Dyslipidemia: Verify home meds and resume in am Status: Acute Attestations Medical Necessity Statement*: Patient needs to be in hospital for s/p amputation, awaiting primary delayed closure, need for IV antibiotic, Coding Level of Care Code Acute Director Of Analytics for [facility]welizabeth Diagnoses Cellulitis of leg, right L03.115 Type 2 diabetes mellitus with other diabetic neurological complication E11.49 Acute renal failure N17.9 Dyslipidemia E78.5
[2021-01-10] MEDS: heparin 5,000 unit/mL INJ 1 mL 5000 UNIT SUBCUT ×2 (09:42→21:23)
[2021-01-10 10:54] LABS: Glucose Point of Care 268 mg/dL (70-110)
--- NOTE | 2021-01-10 10:58 | USCV_ITS ---
Braxton Rosales Age: 50 Gender: M : 1970 Exam Date: 01/10/2021 14:28 Ordering Phys: Marshall Iglesias MD Technologist: Octavio John [place] [facility] [place]: BACTEREMIA BP: 126 / 76 HR: 79 Rhythm: Sinus Technical Quality: Very poor MEASUREMENTS (Male / Female) Normal Values 2D ECHO LV Diastolic Diameter PLAX 4.9 cm 4.2 - 5.9 / 3.9 - 5.3 cm LV Systolic Diameter PLAX 2.6 cm IVS Diastolic Thickness 1.1 cm 0.6 - 1.0 / 0.6 - 0.9 cm IVS Systolic Thickness 1.2 cm LVPW Diastolic Thickness 1.0 cm 0.6 - 1.0 / 0.6 - 0.9 cm LVPW Systolic Thickness 1.6 cm LVOT Diameter 2.0 cm LV Ejection Fraction 2D Teich 78.8 % LV Ejection Fraction MOD 2C 64.3 % LV Ejection Fraction 2C AL 63.6 % LA Diameter 3.6 cm LA Width 4.6 cm LA Height 4.9 cm RA Width 4.2 cm RA Height 4.6 cm M-MODE LV Diastolic Diameter MM 5.8 cm 4.2 - 5.9 / 3.9 - 5.3 cm LV Systolic Diameter MM 3.4 cm LV Ejection Fraction MM Teich 72.1 % IVS Diastolic Thickness MM 1.0 cm 0.6 - 1.0 / 0.6 - 0.9 cm IVS Systolic Thickness MM 1.6 cm LVPW Diastolic Thickness MM 1.0 cm 0.6 - 1.0 / 0.6 - 0.9 cm LVPW Systolic Thickness MM 1.7 cm RV Diastolic Diameter MM 1.5 cm Aortic Annulus Diameter 3.8 cm LA Ao Ratio MM 1.0 MV E Point Septal Separation 0.7 cm DOPPLER AV Peak Velocity 157.0 cm/s LVOT Peak Velocity 112.0 cm/s AV Area Cont Eq vti 2.5 cm squared AV Area Cont Eq pk 2.3 cm squared MV Area PHT 5.0 cm squared Mitral E to A Ratio 1.1 MV E' Velocity 59.5 cm/s Mitral E to MV E' Ratio 11.1 Mitral E to LV E' Lateral Ratio 13.4 Mitral E to LV E' Septal Ratio 9.5 TR Peak Velocity 178.7 cm/s TR Peak Gradient 12.8 mmHg TV Peak E Velocity 99.0 cm/s Right Atrial Pressure 3.0 mmHg Pulmonary Artery Systolic Pressu 15.8 mmHg PV Peak Velocity 126.0 cm/s FINDINGS Left Ventricle Normal left ventricular cavity size. Normal left ventricular systolic function. No regional wall motion abnormalities. Left ventricular ejection fraction is estimated at 60 %. Right Ventricle The right ventricle is normal in size and function. Right Atrium The right atrium is normal in size. Left Atrium The left atrium is normal in size. Mitral Valve Structurally normal mitral valve without significant stenosis or prolapse. There is no mitral regurgitation. Aortic Valve Structurally normal aortic valve without significant sclerosis or stenosis. There is no aortic regurgitation. Tricuspid Valve Structurally normal tricuspid valve without significant stenosis or regurgitation. Pulmonary artery systolic pressure is normal. Pulmonic Valve Structurally normal pulmonic valve without significant stenosis. There is no pulmonic regurgitation. Pericardium Normal pericardium without effusion. Aorta Normal ascending aorta dimension. CONCLUSIONS 1-Normal left ventricular cavity size. Normal left ventricular systolic function. No regional wall motion abnormalities. Left ventricular ejection fraction is estimated at 60 %. 2-There is no pericardial effusion. 3-No significant valve abnormalities. 4-Pulmonary artery systolic pressure is within normal limits. 5-Right atrial pressure is around 5 mm of mercury. 6-Due to poor quality images cannot rule out vegetation if clinically indicated transesophageal echocardiogram is better modality for cardiac source of infection 7-No significant change since the prior echocardiogram study of 08/16/2018. Essie Alba MD (Electronically Signed) Final Date: 10 January 2021 21:34 S
--- NOTE | 2021-01-10 11:04 | PC.NURSE ---
Received verbal orders by Dr. Iglesias to order an echo for the patient after critical results of a positive blood culture 11/18 was positive for Staph Aureus as well as his tissue sample. Dr. Cali's office also notified of results. Message left with medical secretary receptionist.
[2021-01-10] MEDS: vancomycin 1,250 MG/250 ML PIGGYBACK 250 MG IV ×2 (12:40→23:18)
[2021-01-10] MEDS: ondansetron 4 MG Tablet 8 MG PO (13:51)
[2021-01-10] MEDS: pregabalin 150 mg Capsule PO ×2 (14:00→21:23)
[2021-01-10 14:05] LABS: Coronavirus Test Green County Not Detected
[2021-01-10 16:44] LABS: Glucose Point of Care 186 mg/dL (70-110)
[2021-01-10 21:34] LABS: Glucose Point of Care 227 mg/dL (70-110)
[2021-01-11] VITALS (13 sets, daily range): BP systolic 123–162; BP diastolic 63–88; PULSE 67–81; RESP 16–18; TEMP 36.4–37.3; O2SAT 92–98
[2021-01-11] MEDS: piperacillin-tazobactam 3.375 GM in sodium chloride 0.9% (plus) 50 ML IV ×3 (00:37→18:02)
[2021-01-11] MEDS: morphine 4 mg/mL SDV 1 mL 2 MG IVP (00:53)
[2021-01-11 03:10] LABS: Basophils # 0.1 10^3/uL (0.0-0.1); Basophils % 0.7 %; Eosinophils # 0.4 10^3/uL (0.0-0.8); Hematocrit 34.2 % (42.0-52.0); Lymphocytes # 1.3 10^3/uL (0.8-4.8); Lymphocytes % 17.3 %; Mean Corpuscular HGB Conc 32.2 g/dL (30.0-36.0); Mean Corpuscular Hemoglobin 26.8 pg (28.0-34.0); Mean Corpuscular Volume 83.2 fL (80-94); Monocytes # 0.6 10^3/uL (0.2-0.9); Monocytes % 7.5 %; Neutrophils # 5.21 10^3/uL (1.8-7.7); Neutrophils % 68.8 %; Nucleated Red Blood Cells % 0 %; Platelet Count 231 10^3/cmm (130-400); Red Blood Count 4.11 10^6/uL (4.1-5.3); Red Cell Distribution Width 15.3 % (12.1-15.1); White Blood Count 7.6 10^3/uL (4.0-10.0)
[2021-01-11 03:28] LABS: Anion Gap 13.8 (5-19); Blood Urea Nitrogen 15 mg/dL (6-20); Calcium 8.5 mg/dL (8.5-10.5); Carbon Dioxide 23 mmol/L (22-29); Chloride 103 mmol/L (98-107); Glomerular Filtration Rate 70.3 mL/min (90-130); Glucose 192 mg/dL (65-115); Osmolality Calculated 288 mOsm/kg (285-295); Potassium 3.8 mmol/L (3.5-5.1); Sodium 136 mmol/L (136-145)
[2021-01-11 06:31] LABS: Glucose Point of Care 176 mg/dL (70-110)
[2021-01-11] MEDS: pregabalin 150 mg Capsule PO ×2 (10:54→19:43)
[2021-01-11] MEDS: sodium chloride 0.9% 1,000 ML 30 ML IV (11:30)
--- NOTE | 2021-01-11 11:47 | P.PN_ITS ---
Subjective Subjective: Interval history: No acute overnight, tolerating regular diet. Due for Primary delayed closure right foot today. 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 Status post right second toe and fifth toe amputation. Status post left great toe and left fifth toe amputation. Muscle strength 5 out of 5 in all 3 cardinal planes to the bilateral foot and ankle. No pain with posterior calf squeeze. Data : 01/11/21 02:46 01/11/21 02:46 Micro: Microbiology 01/09/21 10:15 Gram Stain - Final Toe - #1 Tissue Culture - Preliminary Methicillin Resis Staph Aureus 01/08/21 19:17 Blood Culture - Preliminary Blood Methicillin Resis Staph Aureus 01/10/21 05:17 Blood Culture - Preliminary Blood NEGATIVE TO DATE 01/10/21 05:14 Blood Culture - Preliminary Blood NEGATIVE TO DATE 01/08/21 19:17 Blood Culture - Preliminary Blood Staphylococcus aureus A&P Assessment and plan (1) Cellulitis of leg, right: Blood culture: 01/08: MRSA Repeat blood culture: 01/10 : NTD Tissue culture: Toe :MRSA 2D echo:LVEF :nL , estimated at 60 % , No significant valve abnormalities,PASP:NL, Will continue patient on broad spectrum abx Vancomycin pharmacy to dose Zosyn 3.375g IV q8hr Status post right hallux amputation this morning for osteomyelitis and abscess with Dr. Cali Status: Acute (2) Type 2 diabetes mellitus with other diabetic neurological complication: Sliding scale insulin A1c recently in 7.1% Qachs check Diabetic diet Status: Chronic (3) Acute renal failure: Creatinine increased to 1.7 Current SCR : 1.1 Possibly due to recent [employer] lasix Initially on NS at 75cc/hr Renally dose medication Monitor urine output Repeat BMP in am Status: Acute (4) Dyslipidemia: Verify home meds and resume in am Status: Acute Attestations Medical Necessity Statement*: Patient needs to be in hospital for the manag ement of rt foot osteo s/p amputation and the need for I.V Abxs Coding Level of Care Code Acute Air Conditioning Supervisor for diandra Fwd Diagnoses Cellulitis of leg, right L03.115 Type 2 diabetes mellitus with other diabetic neurological complication E11.49 Acute renal failure N17.9 Dyslipidemia E78.5
[2021-01-11 11:51] LABS: Glucose Point of Care 169 mg/dL (70-110)
--- NOTE | 2021-01-11 11:57 | W.PM.OPSUD ---
Surgery/Procedure H&P Update DATE OF PROCEDURE: January 11, 2021 DATE H&P PERFORMED: 01/09/21 H&P UPDATE INFORMATION: I have reviewed H&P completed within last 30 days, I have examined patient prior to procedure, No changes to prior documentation and [place] [facility] [place] indicated PREOP DIAGNOSIS: Osteomyelitis right hallux, abscess right hallux PLANNED PROCEDURE: Operation Date: 01/09/21 11:15 Proposed Procedures p Amputation Toe/s(Right) - Ernesto Cali DPM Operation Date: 01/11/21 12:00 Proposed Procedures p Delayed Wound Closure(Right) - Ernesto Cali DPM
--- NOTE | 2021-01-11 11:58 | P.PN_ITS ---
Subjective Subjective: Interval history: 2 days status post right hallux amputation. No acute overnight, tolerating regular diet. Nausea has subsided. Patient denies any subjective nausea, vomiting, fever, chills, shortness of breath or chest pain. Vitals/I&O/Wt Last Vital Signs Temp 97.5 F L 01/11/21 11:29 Pulse 72 01/11/21 11:29 Resp 18 01/11/21 11:29 BP 141/68 01/11/21 11:29 Pulse Ox 96 01/11/21 11:29 01/10/21 01/11/21 01/11/21 22:59 06:59 14:59 Intake Total 1290 / 1950 300 / 2250 480 / 480 Output Total 1100 / 1500 Balance 190 / 450 300 / 750 480 / 480 Physical Exam Narrative: EXAM NARRATIVE: Patient is alert and oriented ?3 and in no acute distress. The following is a focused lower extremity exam. VASCULAR: Dorsalis pedis and posterior tibial arteries palpable +2. Calf is supple and nontender proximally and distally. No warmth at the right lower anterior leg and right foot. NEUROLOGICAL: Protective sensation intact 0-10 sites tested with Howes Johnny monofilament at the lower extremities. DERMATOLOGICAL: No strikethrough bleeding at the dressings right lower extremity. Decreased erythema subsiding from the line of demarcation. Viable skin margins with decreased erythema, no purulence. MUSCULOSKELETAL: Status post right hallux amputation. Status post right second toe and fifth toe amputation. Status post left great toe and left fifth toe amputation. Muscle strength 5 out of 5 in all 3 cardinal planes to the bilateral foot and ankle. No pain with posterior calf squeeze. Data : 01/11/21 02:46 01/11/21 02:46 Micro: Microbiology 01/09/21 10:15 Gram Stain - Final Toe - #1 Tissue Culture - Preliminary Methicillin Resis Staph Aureus 01/08/21 19:17 Blood Culture - Preliminary Blood Methicillin Resis Staph Aureus 01/10/21 05:17 Blood Culture - Preliminary Blood NEGATIVE TO DATE 01/10/21 05:14 Blood Culture - Preliminary Blood NEGATIVE TO DATE 01/08/21 19:17 Blood Culture - Preliminary Blood Staphylococcus aureus A&P Assessment and plan (1) Non-pressure chronic ulcer of other part of right foot with necrosis of bone: Status: Acute (2) Cellulitis and abscess of right lower extremity: Status: Acute (3) Diabetes mellitus with polyneuropathy: Status: Acute Qualifiers: Diabetes mellitus type: type 2 Qualified Code(s): E11.42 - Type 2 diabetes mellitus with diabetic polyneuropathy Mr. Rosales is a 50-year-old diabetic male with abscess and osteomyelitis to the right great toe. -2 days status post right hallux amputation. -Nonweightbearing to the right forefoot during his hospitalization, may heel touch with the right heel for transfers. -Patient receiving empiric IV antibiotics -Blood cultures shows gram-positive cocci Patient has been n.p.o. since midnight in preparation for primary delayed closure, informed consent signed initialed his right foot discussed risk versus benefits she is ready to proceed. Scheduled for primary delayed closure today at noon. Podiatry will follow, appreciate medical management from hospitalist. Ernesto Cali D.P.M. [phone]. Attestations Medical Necessity Statement*: Diabetic foot infection right foot Coding Level of Care Code Acute Cray Fishing Hand for [facility] Diagnoses Non-pressure chronic ulcer of other part of right foot with necrosis of bone L97.514 Cellulitis and abscess of right lower extremity L03.115; L02.415 Diabetes mellitus with polyneuropathy E11.42 Diabetes mellitus type: type 2
--- NOTE | 2021-01-11 11:58 | P.ANESASSM_ITS ---
Pre-Anesthetic Assessment Pre-Anesthetic Assessment: Height/Weight: Height 1.78 m Weight 114.986 kg Temp Pulse Resp BP Pulse Ox 97.5 F L 72 18 141/68 96 01/11/21 11:29 01/11/21 11:29 01/11/21 11:29 01/11/21 11:29 01/11/21 11:29 Preop Diagnosis: Osteomyelitis right hallux, abscess right hallux Proposed Procedure: Operation Date: 01/09/21 11:15 Proposed Procedures p Amputation Toe/s(Right) - Ernesto Cali DPM Operation Date: 01/11/21 12:00 Proposed Procedures p Delayed Wound Closure(Right) - Ernesto Cali DPM Familial anesthetic complications: none Was Beta Jeff taken within 24 hours: N/A Was Clonidine taken within 24 hours: N/A Last intake: Intake Last Liquid Date 01/11/21 Last Liquid Time 08:00 Last Solid Date 01/10/21 Last Solid Time 23:50 Social: Social History: No alcohol and No tobacco Exam: Pre-Anes Outpt Exam: alert, oriented x 3, clear to auscultation bilaterally and regular rate & rhythm Airway: Cervical ROM: WNL MP: 3 Dentition: False Pulmonary: Pulmonary: Sleep apnea CV/HEM: CV/HEM: HTN GI: GI: GERD and Hiatus hernia Metabolic: Metabolic: Morbid obesity Neuropsych: Neuropsych: Neuropathy Anesthetic Plan: ASA status: 3 Anesthesia: MAC Risk of > 500 ml blood loss (7ml/kg in children): No Meds/Allergies Current Medications: Current Medications Generic Name Dose Route Start Last Admin Trade Name Freq PRN Reason Stop Dose Admin Acetaminophen 650 mg 01/08/21 21:47 01/09/21 04:14 Acetaminophen 32 5 Mg Tablet PO 650 mg Q6H PRN Administration Mild/Mod Pain Or Temp >/= 101 Heparin Sodium (Be ef Lung) 5,000 unit 01/08/21 22:00 01/10/21 21:23 Heparin 5,000 Un it/Ml Inj 1 Ml SUBCUT 5,000 unit Q12H ELISE Administration Piperacillin Sod/T azobactam 50 mls @ 12.5 mls /hr 01/08/21 23:30 01/11/21 08:30 Sod 3.375 gm/ So dium Chloride IV 12.5 mls/hr Q8H ELISE Administration Protocol Vancomycin/PEG/NAD A/Lysine/Water 1,250 mg in 250 m ls @ 250 mls/hr 01/09/21 11:45 01/11/21 00:34 Vancocin IV Infused Q12H ELISE Infusion Sodium Chloride 1,000 mls @ 30 ml s/hr 01/11/21 11:15 01/11/21 11:30 Sodium Chloride 0.9% IV 01/12/21 11:14 30 mls/hr .Q24H ELISE Administration Insulin Aspart 0 unit 01/08/21 23:23 01/11/21 08:30 Insulin Aspart 1 00 Unit/1 Ml SUBCUT 4 unit WM&BEDTIME ELISE Administration Protocol Morphine Sulfate 2 mg 01/08/21 21:47 01/11/21 00:53 Morphine 4 Mg/Ml Sdv 1 Ml IVP 2 mg Q4H PRN Administration SEVERE PAIN Morphine Sulfate 4 mg 01/08/21 22:18 01/09/21 08:08 Morphine 4 Mg/Ml Sdv 1 Ml IVP 4 mg Q4H PRN Administration SEVERE PAIN Ondansetron HCl 4 mg 01/08/21 21:47 01/10/21 07:41 Ondansetron 2 Mg /Ml Sdv 2 Ml IVP 4 mg Q8H PRN Administration vomiting, or N/V if npo Ondansetron HCl 4 mg 01/08/21 22:18 01/10/21 00:33 Ondansetron 2 Mg /Ml Sdv 2 Ml IVP 4 mg Q6H PRN Administration NAUSEA AND VOMITI NG Ondansetron HCl 8 mg 01/10/21 07:34 01/10/21 13:51 Ondansetron 4 Mg Tablet PO 8 mg Q8H PRN Administration NAUSEA AND VOMITI NG Oxycodone/Acetamin ophen 1 tab 01/08/21 21:47 01/10/21 21:25 Oxycodone-Apap 5 -325 Mg Tablet PO 1 tab Q4H PRN Administration SEVERE PAIN Pregabalin 150 mg 01/10/21 20:00 01/11/21 10:54 Pregabalin 150 M g Capsule PO 150 mg BID@0900,2000 ELISE Administration PFSH Anesthesia PFSH: Medical History (Updated 01/09/21 @ 07:21 by Ernesto Cali DPM) Amputated great toe CHF (congestive heart failure) Diverticulosis Dyslipidemia Encounter for long-term use of opiate analgesic Essential (primary) hypertension Hallux rigidus, right foot History of amputation of left great toe Restless leg syndrome Shoulder pain Sleep apnea in adult Type 2 diabetes mellitus with other diabetic neurological complication Wound dehiscence, surgical Surgical History H/O hernia repair History of amputation of lesser toe of right foot Hx of amputation of lesser toe Left foot big toe and second toe 01/21/20 [place] [facility] [place] Status post PICC central line placement Family History Mother Cancer Denies family history of Diabetes CAD (coronary artery disease) Clotting disorder Dementia Hyperlipidemia Psychiatric illness Chronic kidney disease (CKD) Suicide Anesthesia complication Bleeding disorder Family history of premature coronary artery disease Lung disease Hypertension Stroke Social History Smoking and tobacco status: never smoked Second hand smoke exposure: No Alcohol intake: former Desire information about alcohol rehabilitation?: No Counseling given: No Adopted: No Caregiver/support person: Yes Lives independently: Yes Household members: spouse and significant other Housing: House Marital status: Life Partner Number of children: 0 Highest education level completed: High School Graduate service: Yes Current occupational status: retired Pets and animals: Yes History of recent travel: No Current gender identity: Male Yolande/Taoist: None Agree to transfusion: Yes Financial difficulty paying for basics: Somewhat Hard Data Anesthesia CBC & Chem 7: 01/11/21 02:46 01/11/21 02:46 Other Labs: Laboratory Results - last 48 hr 01/08/21 01/09/21 01/09/21 21:49 16:05 17:09 WBC RBC Hgb Hct MCV MCH MCHC RDW Plt Count MPV Neut % (Auto) Lymph % (Auto) [place] % (Auto) Eos % (Auto) Baso % (Auto) Neut # (Auto) Lymph # (Auto) [place] # (Auto) Eos # (Auto) Baso # (Auto) Nucleated RBC % (auto) Nucleated RBCs # ESR 29 H Sodium Potassium Chloride Carbon Dioxide Anion Gap BUN Creatinine GFR Calculation Glucose POC Glucose 195 H Calculated Osmolality Calcium Total Bilirubin AST ALT Alkaline Phosphatase Total Protein Albumin Globulin Vancomycin Trough Nasal/Oral COVID-19 PCR Not detected 01/09/21 01/09/21 01/10/21 18:43 20:53 05:14 WBC 9.7 RBC 4.04 L Hgb 10.6 L Hct 33.4 L MCV 82.7 D MCH 26.2 L MCHC 31.7 D RDW 15.0 Plt Count 214 MPV 11.0 H Neut % (Auto) 78.3 Lymph % (Auto) 11.0 [place] % (Auto) 7.3 Eos % (Auto) 2.5 Baso % (Auto) 0.5 Neut # (Auto) 7.56 Lymph # (Auto) 1.1 [place] # (Auto) 0.7 Eos # (Auto) 0.2 Baso # (Auto) 0.1 Nucleated RBC % (auto) 0 Nucleated RBCs # 0.0 ESR Sodium Potassium Chloride Carbon Dioxide Anion Gap BUN Creatinine GFR Calculation Glucose POC Glucose 198 H Calculated Osmolality Calcium Total Bilirubin AST ALT Alkaline Phosphatase Total Protein Albumin Globulin Vancomycin Trough 13.2 Nasal/Oral COVID-19 PCR 01/10/21 01/10/21 01/10/21 05:14 06:40 10:48 WBC RBC Hgb Hct MCV MCH MCHC RDW Plt Count MPV Neut % (Auto) Lymph % (Auto) [place] % (Auto) Eos % (Auto) Baso % (Auto) Neut # (Auto) Lymph # (Auto) [place] # (Auto) Eos # (Auto) Baso # (Auto) Nucleated RBC % (auto) Nucleated RBCs # ESR Sodium 133 L Potassium 3.7 Chloride 103 Carbon Dioxide 21 L Anion Gap 12.7 BUN 16 Creatinine 1.1 GFR Calculation 70.3 L Glucose 125 H POC Glucose 119 H 268 H Calculated Osmolality 279 L Calcium 7.9 L Total Bilirubin 0.6 AST 26 ALT 31 Alkaline Phosphatase 108 Total Protein 6.3 L Albumin 3.3 L Globulin 3.0 Vancomycin Trough Nasal/Oral COVID-19 PCR 01/10/21 01/10/21 01/11/21 16:31 21:29 02:46 WBC 7.6 RBC 4.11 Hgb 11.0 L Hct 34.2 L MCV 83.2 MCH 26.8 L MCHC 32.2 RDW 15.3 H Plt Count 231 MPV 11.0 H Neut % (Auto) 68.8 Lymph % (Auto) 17.3 [place] % (Auto) 7.5 Eos % (Auto) 5.0 Baso % (Auto) 0.7 Neut # (Auto) 5.21 Lymph # (Auto) 1.3 [place] # (Auto) 0.6 Eos # (Auto) 0.4 Baso # (Auto) 0.1 Nucleated RBC % (auto) 0 Nucleated RBCs # 0.0 ESR Sodium Potassium Chloride Carbon Dioxide Anion Gap BUN Creatinine GFR Calculation Glucose POC Glucose 186 H 227 H Calculated Osmolality Calcium Total Bilirubin AST ALT Alkaline Phosphatase Total Protein Albumin Globulin Vancomycin Trough Nasal/Oral COVID-19 PCR 01/11/21 01/11/21 01/11/21 02:46 06:27 10:59 WBC RBC Hgb Hct MCV MCH MCHC RDW Plt Count MPV Neut % (Auto) Lymph % (Auto) [place] % (Auto) Eos % (Auto) Baso % (Auto) Neut # (Auto) Lymph # (Auto) [place] # (Auto) Eos # (Auto) Baso # (Auto) Nucleated RBC % (auto) Nucleated RBCs # ESR Sodium 136 Potassium 3.8 Chloride 103 Carbon Dioxide 23 Anion Gap 13.8 BUN 15 Creatinine 1.1 GFR Calculation 70.3 L Glucose 192 H POC Glucose 176 H 169 H Calculated Osmolality 288 Calcium 8.5 Total Bilirubin AST ALT Alkaline Phosphatase Total Protein Albumin Globulin Vancomycin Trough Nasal/Oral COVID-19 PCR Micro: Microbiology 01/09/21 10:15 Gram Stain - Final Toe - #1 Tissue Culture - Preliminary Methicillin Resis Staph Aureus 01/08/21 19:17 Blood Culture - Preliminary Blood Methicillin Resis Staph Aureus 01/10/21 05:17 Blood Culture - Preliminary Blood NEGATIVE TO DATE 01/10/21 05:14 Blood Culture - Preliminary Blood NEGATIVE TO DATE 01/08/21 19:17 Blood Culture - Preliminary Blood Staphylococcus aureus Cardiac Studies: No Data to Display
[2021-01-11] MEDS: lidocaine 1% INJ 20 mL INJECTION (12:15)
--- NOTE | 2021-01-11 12:30 | PM.OP ---
Operative Report Date of procedure: January 11, 2021 Pre-op Diagnosis: Osteomyelitis right hallux, abscess right hallux Post-op diagnosis: same Post-op Findings: Improved soft tissue quality Procedure Done: Primary delayed closure right foot CPT code 12736 Implants: 3-0 Vicryl, 4-0 nylon, 3-0 nylon Specimens removed/disposition: None Pathology: none sent Surgeon: Ernesto Cali D.P.M. [place] Inspector Repairer: SHANE Anesthesia: MAC Estimated blood loss: Less than 10 mL Tourniquet time: 11 minutes IV fluids: None Urine output: None Complications: None Findings: Improved soft tissue quality appropriate for closure Condition: stable Disposition: PACU Brief History: 2 days status post right hallux amputation secondary to osteomyelitis and abscess with sepsis. Wound following amputation left open for repeat debridement and delayed closure. Risks include pain, bleeding, numbness, infection, need for further surgical intervention antibiotic therapy and higher levels of amputation. Procedure: Under mild sedation the patient was brought to the operating room and placed on the operating table in supine position. A timeout was performed. Anesthesia was then administered by the anesthesia service. Local anesthesia injected by myself consisting of 20 cc of one-to-one mixture 1% lidocaine and 0.5% Marcaine plain and a right male block fashion. Well-padded pneumatic tourniquet applied to the right ankle. Right lower extremity was scrubbed, prepped and draped utilizing normal aseptic technique. Right foot was elevated and the tourniquet inflated to 200 mmHg. Attention was directed to the amputation site of the right hallux at the metatarsophalangeal joint. Area was irrigated with copious amounts of sterile saline solution and excisional debridement down to and including subcutaneous tissue, myofascial layer was performed of all devitalized soft tissue. Further irrigation was performed and the wound was closed in a layered fashion consisting of 3-0 Vicryl, 4-0 nylon and 3-0 nylon. Incision was then dressed with Adaptic, sterile 4 x 4, Kerlix and Juan wrap. Tourniquet was deflated and a prompt hyperemic response was noted to the lesser digits of the right foot and at the amputation site. Patient tolerated the procedure well and was transferred to the PACU with vital signs stable and vascular status intact. He will be transferred back to the floor after period of postoperative monitoring to continue empiric IV antibiotics. He is to elevate his right foot while at rest.
[2021-01-11] MEDS: docusate sodium 100 mg Capsule PO ×2 (13:42→18:02)
[2021-01-11] MEDS: oxyCODONE-APAP 5-325 mg Tablet 1 TAB PO ×2 (14:59→19:43)
[2021-01-11 17:28] LABS: Glucose Point of Care 262 mg/dL (70-110)
--- NOTE | 2021-01-11 19:09 | ANE.PACU2 ---
Inpatient post-anesthesia follow up: Airway intact: Yes Vital signs: Temperature 97.5 F Pulse Rate [Monito r] 97 Pulse Rate 81 Respiratory Rate 18 Blood Pressure [Le ft Arm] 130/72 Blood Pressure 136/78 Pulse Oximetry 94 Oxygen Delivery Me thod Room Air Oxygen Flow Rate Fraction of Inspir ed Oxygen Hydration adequate: Yes Nausea and vomiting: No Pain level: 2 Mental status: Baseline
[2021-01-11 20:14] LABS: Glucose Point of Care 228 mg/dL (70-110)
[2021-01-11] MEDS: heparin 5,000 unit/mL INJ 1 mL 5000 UNIT SUBCUT (21:30)
[2021-01-11] MEDS: vancomycin 1,250 MG/250 ML PIGGYBACK 250 MG IV (23:00)
[2021-01-12] VITALS (8 sets, daily range): BP systolic 126–162; BP diastolic 67–79; PULSE 67–74; RESP 18; TEMP 36.5–36.9; O2SAT 95–97
[2021-01-12] MEDS: piperacillin-tazobactam 3.375 GM in sodium chloride 0.9% (plus) 50 ML IV ×3 (00:04→15:47)
[2021-01-12] MEDS: oxyCODONE-APAP 5-325 mg Tablet 1 TAB PO ×5 (01:15→21:48)
[2021-01-12 02:43] LABS: Basophils # 0.1 10^3/uL (0.0-0.1); Eosinophils # 0.4 10^3/uL (0.0-0.8); Hematocrit 32.7 % (42.0-52.0); Hemoglobin 10.5 g/dL (11.7-16.6); Lymphocytes # 1.4 10^3/uL (0.8-4.8); Lymphocytes % 20.3 %; Mean Corpuscular HGB Conc 32.1 g/dL (30.0-36.0); Mean Corpuscular Hemoglobin 26.6 pg (28.0-34.0); Mean Platelet Volume 10.6 fL (7.4-10.4); Monocytes # 0.5 10^3/uL (0.2-0.9); Monocytes % 7.9 %; Neutrophils # 4.29 10^3/uL (1.8-7.7); Neutrophils % 64.1 %; Nucleated Red Blood Cells % 0 %; Platelet Count 251 10^3/cmm (130-400); Red Blood Count 3.94 10^6/uL (4.1-5.3); Red Cell Distribution Width 15.3 % (12.1-15.1); White Blood Count 6.7 10^3/uL (4.0-10.0)
[2021-01-12 03:03] LABS: Anion Gap 13.9 (5-19); Blood Urea Nitrogen 15 mg/dL (6-20); Calcium 8.1 mg/dL (8.5-10.5); Carbon Dioxide 23 mmol/L (22-29); Chloride 104 mmol/L (98-107); Glomerular Filtration Rate 78.5 mL/min (90-130); Glucose 225 mg/dL (65-115); Osmolality Calculated 292 mOsm/kg (285-295); Potassium 3.9 mmol/L (3.5-5.1); Sodium 137 mmol/L (136-145)
[2021-01-12 07:06] LABS: Glucose Point of Care 196 mg/dL (70-110)
--- NOTE | 2021-01-12 07:57 | PM.PN ---
Subjective Subjective: Interval history: 3 days status post right hallux amputation. 1 day status post primary delayed closure right hallux amputation site. No acute events overnight, tolerating regular diet. Nausea has subsided. Patient denies any subjective nausea, vomiting, fever, chills, shortness of breath or chest pain. Vitals/I&O/Wt Last Vital Signs Temp 97.8 F 01/12/21 04:19 Pulse 68 01/12/21 04:19 Resp 18 01/12/21 04:19 BP 126/67 01/12/21 04:19 Pulse Ox 95 01/12/21 04:19 01/11/21 01/12/21 01/12/21 22:59 06:59 14:59 Intake Total 1410 / 2180 300 / 2480 Output Total 500 / 760 950 / 1710 Balance 910 / 1420 -650 / 770 Physical Exam Narrative: EXAM NARRATIVE: Patient is alert and oriented ?3 and in no acute distress. The following is a focused lower extremity exam. VASCULAR: Dorsalis pedis and posterior tibial arteries palpable +2. Calf is supple and nontender proximally and distally. No warmth at the right lower anterior leg and right foot. NEUROLOGICAL: Protective sensation intact 0-10 sites tested with [place] monofilament at the lower extremities. DERMATOLOGICAL: No strikethrough bleeding at the dressings right lower extremity. Decreased erythema subsiding from the line of demarcation. Viable skin margins with decreased erythema, no purulence. MUSCULOSKELETAL: Status post right hallux amputation. Status post right second toe and fifth toe amputation. Status post left great toe and left fifth toe amputation. Muscle strength 5 out of 5 in all 3 cardinal planes to the bilateral foot and ankle. No pain with posterior calf squeeze. Data : 01/12/21 02:26 01/12/21 02:26 Micro: Microbiology 01/09/21 10:15 Gram Stain - Final Toe - #1 Tissue Culture - Preliminary Methicillin Resis Staph Aureus 01/08/21 19:17 Blood Culture - Preliminary Blood Methicillin Resis Staph Aureus 01/10/21 05:17 Blood Culture - Preliminary Blood NEGATIVE TO DATE 01/10/21 05:14 Blood Culture - Preliminary Blood NEGATIVE TO DATE A&P Assessment and plan (1) Non-pressure chronic ulcer of other part of right foot with necrosis of bone: Status: Acute (2) Cellulitis and abscess of right lower extremity: Status: Acute (3) Diabetes mellitus with polyneuropathy: Status: Acute Qualifiers: Diabetes mellitus type: type 2 Qualified Code(s): E11.42 - Type 2 diabetes mellitus with diabetic polyneuropathy Mr. Rosales is a 50-year-old diabetic male with abscess and osteomyelitis to the right great toe. -3 days status post right hallux amputation. 1 day status post primary delayed closure with clean margins. -Nonweightbearing to the right forefoot during his hospitalization, may heel touch with the right heel for transfers utilizing postop shoe. -Patient to keep postoperative dressing clean dry and intact until his follow-up visit in podiatry clinic scheduled January 19, 2021 at 10:30 AM. -Patient okay for discharge from podiatry standpoint, in regards to bacteremia and positive blood cultures will defer antibiotic therapy and selection to hospitalist. Podiatry will follow, appreciate medical management from hospitalist. Ernesto Cali D.P.M. [phone]. 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
[2021-01-12] MEDS: pregabalin 150 mg Capsule PO ×2 (08:23→19:52)
--- NOTE | 2021-01-12 09:36 | PM.PN ---
Subjective Subjective: Interval history: 3 days status post right hallux amputation. 1 day status post primary delayed closure right hallux amputation site. No acute events overnight, tolerating regular diet. Nausea has subsided. Patient denies any subjective nausea, vomiting, fever, chills, shortness of breath or chest pain. Medications: Reviewed: Yes Vitals/I&O/Wt Last Vital Signs Temp 97.7 F 01/12/21 08:00 Pulse 67 01/12/21 08:00 Resp 18 01/12/21 08:00 BP 136/73 01/12/21 08:00 Pulse Ox 97 01/12/21 08:00 01/11/21 01/12/21 01/12/21 22:59 06:59 14:59 Intake Total 1410 / 2180 300 / 2480 Output Total 500 / 760 950 / 1710 Balance 910 / 1420 -650 / 770 Physical Exam Narrative: EXAM NARRATIVE: EXAM NARRATIVE: GEN: Awake, alert and oriented, no acute distress CVS: S1S2 N RS: CTA B/L Abd: Soft, nt/nd , bs+ SAT TUTOR: no focal neuro deficits MUSCULOSKELETAL: Status post right hallux amputation. Status post right second toe and fifth toe amputation. Status post left great toe and left fifth toe amputation. Muscle strength 5 out of 5 in all 3 cardinal planes to the bilateral foot and ankle. No pain with posterior calf squeeze. Data : 01/12/21 02:26 01/12/21 02:26 Micro: Microbiology 01/09/21 10:15 Gram Stain - Final Toe - #1 Tissue Culture - Preliminary Methicillin Resis Staph Aureus 01/08/21 19:17 Blood Culture - Preliminary Blood Methicillin Resis Staph Aureus 01/10/21 05:17 Blood Culture - Preliminary Blood NEGATIVE TO DATE 01/10/21 05:14 Blood Culture - Preliminary Blood NEGATIVE TO DATE A&P Assessment and plan (1) Cellulitis of leg, right: Right hallux osteomyelitis Blood culture: 01/08: MRSA Repeat blood culture: 01/10 : NTD Tissue culture: Toe :MRSA 2D echo:LVEF :nL , estimated at 60 % , No significant valve abnormalities,PASP:NL, Will continue patient on broad spectrum abx Vancomycin pharmacy to dose Zosyn 3.375g IV q8hr ( 01/08 - 01/12 ) Status post right hallux amputation this morning for osteomyelitis and abscess with Dr. Cali. S/P primary delayed closure right hallux amputation site. Given the fact that the patient has vega MRSA Bcateremia as well as MRSA for tissue culture,though he has clear cut resection margin.It will be prudent to continue patient on I.V Vancomycin for 2 weeks with goal trough of 15-20 as outpatient.It is more important for the fact that the patient has diabetes. PICC Line has been placed.I.V Infusion orders have been placed. Patient will continue to follow I.D as well as as outpatient. Patient will need weekly CBC, CMP, Vancomycin trough to be checked by home infusion company and the results needs to be faxed to I.D Office for review. 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
--- NOTE | 2021-01-12 10:42 | XR_ITS ---
WS: [id number] Portable AP upright chest, 01/12/2021 Clinical Data: Confirm PICC placement Comparison: Portable chest, 01/20/2020. Findings: The left PICC line ends in the superior vena cava. No pneumothorax is seen. XR/XR chest 1V portable [id number] Impression: Satisfactory placement of left PICC line.
[2021-01-12] MEDS: vancomycin 1,250 MG/250 ML PIGGYBACK 250 MG IV ×2 (11:08→23:44)
[2021-01-12] MEDS: heparin 5,000 unit/mL INJ 1 mL 5000 UNIT SUBCUT ×2 (11:17→21:41)
[2021-01-12 11:34] LABS: Glucose Point of Care 223 mg/dL (70-110)
[2021-01-12 17:42] LABS: Glucose Point of Care 171 mg/dL (70-110)
[2021-01-12 21:34] LABS: Glucose Point of Care 250 mg/dL (70-110)
[2021-01-13] VITALS: BP 137/72; PULSE 66; RESP 18; TEMP 36.8
[2021-01-13 02:55] LABS: Basophils # 0.1 10^3/uL (0.0-0.1); Basophils % 1.1 %; Eosinophils # 0.5 10^3/uL (0.0-0.8); Eosinophils % 7.5 %; Hematocrit 33.2 % (42.0-52.0); Hemoglobin 10.4 g/dL (11.7-16.6); Lymphocytes # 1.9 10^3/uL (0.8-4.8); Lymphocytes % 29.2 %; Mean Corpuscular HGB Conc 31.3 g/dL (30.0-36.0); Mean Corpuscular Hemoglobin 26.4 pg (28.0-34.0); Mean Corpuscular Volume 84.3 fL (80-94); Mean Platelet Volume 10.6 fL (7.4-10.4); Monocytes # 0.4 10^3/uL (0.2-0.9); Neutrophils # 3.49 10^3/uL (1.8-7.7); Neutrophils % 54.9 %; Nucleated Red Blood Cells % 0 %; Platelet Count 235 10^3/cmm (130-400); Red Blood Count 3.94 10^6/uL (4.1-5.3); White Blood Count 6.4 10^3/uL (4.0-10.0)
[2021-01-13 03:54] LABS: Blood Urea Nitrogen 14 mg/dL (6-20); Calcium 8.8 mg/dL (8.5-10.5); Carbon Dioxide 25 mmol/L (22-29); Glomerular Filtration Rate 78.5 mL/min (90-130); Glucose 194 mg/dL (65-115); Osmolality Calculated 288 mOsm/kg (285-295)
[2021-01-13 03:56] LABS: Chloride 103 mmol/L (98-107); Sodium 136 mmol/L (136-145)
[2021-01-13 04:00] VITALS: BP 128/71; PULSE 65; RESP 18; TEMP 36.6; O2SAT 98
[2021-01-13 06:33] LABS: Glucose Point of Care 173 mg/dL (70-110)
[2021-01-13 08:00] VITALS: BP 164/79; PULSE 84; RESP 18; TEMP 36.6; O2SAT 96
[2021-01-13] MEDS: docusate sodium 100 mg Capsule PO (09:07)
[2021-01-13] MEDS: pregabalin 150 mg Capsule PO (09:07)
[2021-01-13 10:57] VITALS: BP 147/69; PULSE 81; RESP 18; TEMP 37.3; O2SAT 95
[2021-01-13 11:04] LABS: Glucose Point of Care 290 mg/dL (70-110)
--- NOTE | 2021-01-13 11:08 | PC.CHAP ---
Pastoral Care Encounter/Spiritual Assessment Type of Contact [] Declined commercial estimator visit [] Patient/Family/Request visit [] Outpatient visit [] Follow-up visit [] Physician referral [] Code/Alert [] Routine visit [] Staff referral [] Actively dying [] Patient sleeping [] Family support [] [] Out of room [] Palliative care [] [] Receiving care in room [] Pre-surgical visit [] Trauma [] Long length of stay [] ICU visit [x] Other: In Isolation Relational/Emotional Strength [] Patient feels connected with others/family/visitors/staff [] Distress [] Loneliness/isolation [] Abandonment Spirituality of Patient [] Person of Yolande [] Attends Sikh of their Yolande [] Believes in Prayer [] Reads Bible or Samaritan materials [] There are Spiritual issues to be addressed Rn Oncology Clinical Interventions [] Prayer [] Active listening [] Non-anxious presence [] Spiritual/emotional support [] Crisis/trauma care [] Spiritual counseling [] Bereavement support [] Provided bereavement packet [] Provided Bible/devotional materials [] Provided toy/stuffed animal, coloring book to patient or family member [] Provided Communion [] Anointing/[place] [] Salvation [] Completed spiritual assessment [] Other: Impact on Illness or Injury [] Angry [] Fearful [] Anxious [] Often cries [] Exhaustion [] Unable to work [] Unable to attend gnosticist [] Unable to walk/stand [] Unable to read [] Unable to drive [] Unable to eat/drink [] Unable to sleep [] Unable to be with family [] Patient intubated [] Other: Summary : In Isolation Time spent with patient 5 mins
[2021-01-13] MEDS: heparin 5,000 unit/mL INJ 1 mL 5000 UNIT SUBCUT (11:11)
[2021-01-13] MEDS: vancomycin 1,250 MG/250 ML PIGGYBACK 250 MG IV (11:11)
--- NOTE | 2021-01-13 12:34 | P.DS_ITS ---
Discharge Providers Date of Admission: 01/08/21 20:40 Date of Discharge: January 13, 2021 Attending Provider at Admission: Kallie Pham Attending Provider at Discharge: Marshall Iglesias MD Primary Care Provider: Cindy Hsu DO Diagnoses at Discharge Discharge Diagnosis (1) Cellulitis of leg, right: (2) Type 2 diabetes mellitus with other diabetic neurological complication: (3) Acute renal failure: (4) Dyslipidemia: Reason for Visit Reason for Visit: infection in leg Hospital Course Hospital Course 50-year-old male with past medical history significant for hypertension, dyslipidemia, gastroesophageal reflux disease, diabetes mellitus last known A1c 7.1% and chronic right hallux wound for which he recently had interphalangeal joint arthroplasty on 12/17 who is now presenting with fever and increasing erythema progressively increasing towards knee. Patient stated he started to feel fever and chills today as well as increase right foot pain. Patient was treated with bactrim two week ago as well. Upon arrival her laboratory work up showed a WBC of 14.6, Hemoglobin of 12.8, hematocrit of 39.4 and a platelet count of 269. Sodium of 135, potassium of 4.1, chloride of 99, bicarb of 26, BUN of 24, and a creatinine of 1.7. Crp of 45.1. Xray of right foot showed subtle mineralization changes are noted in the proximal phalanx distal osteotomy margin of the great toe compared with 12/24/2020. Osteomyelitis changes cannot be exclude. Podiatry was notified by ER and planned to consult in am. Patient was sitting up in bed in no apparent distress. Patient was started on broad specturm abx in ER.During the hospital sta he was managed for Right hallux osteomyelitis: Status post right hallux amputation.S/P primary delayed closure right hallux amputation site. Blood culture: 01/08: MRSA Repeat blood culture prior to discharge was : NTD , Tissue culture: Toe :MRSA 2D echo:LVEF :nL , estimated at 60 % , No significant valve abnormalities,PASP:NL.During the hospital stay patient was on I.V Vancomycin and zosyn.Zosyn was discontinued prior to discharge. Given the fact that the patient has vega MRSA Bcateremia as well as MRSA for tissue culture, even though he has clear cut resection margin.It will be prudent to continue patient on I.V Vancomycin for 2 weeks with goal trough of 15-20 as o utpatient.It is more important for the fact that the patient has diabetes. PICC Line was placed.I.V Infusion was ordered. Patient will continue to follow I.D as well as as outpatient. Patient will need weekly CBC, CMP, Vancomycin trough to be checked by home infusion company and the results needs to be faxed to I.D Office for review. Patient responded well to the above medical management and was discharged in stable condition. 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 Status post right second toe and fifth toe amputation. Status post left great toe and left fifth toe amputation. Muscle strength 5 out of 5 in all 3 cardinal planes to the bilateral foot and ankle. No pain with posterior calf squeeze. Discharge Data Data Completed and Pending: Completed Studies During Hospitalization Category Date Time Status XR chest 1V karli ble [id number] Stat Exams 01/12/21 10:42 Completed XR foot RT 2V 736 20 Routine Exams 01/09/21 11:17 Completed XR foot RT min 3V * [id number] Stat Exams 01/08/21 19:10 Completed CV echo complete* [id number] Routine Ultrasound 01/10/21 10:58 Completed Pending at discharge Category Date Time Status Blood Culture AM LABS Lab 01/10/21 05:17 Results Blood Culture Sta t Lab 01/08/21 19:17 Results MRSA by PCR Sandeep ne Lab 01/09/21 Ordered Pathology: Surgic al [PTH] Routine Pth 01/09/21 10:32 Received Labs from last 24 hours 01/13/21 01/13/21 01/13/21 11:00 06:29 02:45 WBC RBC Hgb Hct MCV MCH MCHC RDW Plt Count MPV Neut % (Auto) Lymph % (Auto) Grimes % (Auto) Eos % (Auto) Baso % (Auto) Neut # (Auto) Lymph # (Auto) Grimes # (Auto) Eos # (Auto) Baso # (Auto) Nucleated RBC % (a uto) Nucleated RBCs # Sodium 136 Potassium 4.0 Chloride 103 Carbon Dioxide 25 Anion Gap 12.0 BUN 14 Creatinine 1.0 GFR Calculation 78.5 L Glucose 194 H POC Glucose 290 H 173 H Calculated Osmolal ity 288 Calcium 8.8 01/13/21 01/12/21 01/12/21 02:45 21:28 17:28 WBC 6.4 RBC 3.94 L Hgb 10.4 L Hct 33.2 L MCV 84.3 MCH 26.4 L MCHC 31.3 RDW 15.0 Plt Count 235 MPV 10.6 H Neut % (Auto) 54.9 Lymph % (Auto) 29.2 Grimes % (Auto) 6.0 Eos % (Auto) 7.5 Baso % (Auto) 1.1 Neut # (Auto) 3.49 Lymph # (Auto) 1.9 Grimes # (Auto) 0.4 Eos # (Auto) 0.5 Baso # (Auto) 0.1 Nucleated RBC % (a uto) 0 Nucleated RBCs # 0.0 Sodium Potassium Chloride Carbon Dioxide Anion Gap BUN Creatinine GFR Calculation Glucose POC Glucose 250 H 171 H Calculated Osmolal ity Calcium Vitals: Last Vital Signs Temp 99.1 F 01/13/21 10:57 Pulse 81 01/13/21 10:57 Resp 18 01/13/21 10:57 BP 147/69 01/13/21 10:57 Pulse Ox 95 01/13/21 10:57 Discharge Plan Discharge Patient Disposition: Home Condition: Stable Prescriptions: Continued (DME) Articulating AFO See Rx Instructions .ROUTE .MEDSUPPLY Qty: 1 RF: 0 (DME) TKO splint See Rx Instructions .Route .MEDSUPPLY Qty: 1 RF: 0 hydrocodone-acetaminophen 10-325 mg tablet 1 tab PO .5 times a day 30 Days Qty: 150 RF: 0 tramadol 50 mg tablet 100 mg PO QID PRN (Reason: Pain) 30 Days Qty: 240 RF: 1 (DME) ASO See Rx Instructions .Route .MEDSUPPLY Qty: 1 RF: 0 insulin aspart U-100 [Novolog Flexpen U-100 Insulin] 100 unit/mL (3 mL) insulin pen 20 unit SUBCUT TID Qty: 15 RF: 2 (DME) Diabetic shoes with molded inserts See Rx Instructions .Route .MEDSUPPLY Qty: 1 RF: 0 (DME) pen needle, diabetic [TechLITE Pen Needle] 32 gauge x 1/4 needle See Rx Instructions .ROUTE .MEDSUPPLY Qty: 100 RF: 3 blood sugar diagnostic [OneTouch Verio test strips] Strip See Rx Instructions .ROUTE .COMPLEX Qty: 100 RF: 11 furosemide 20 mg tablet 20 - 40 mg PO DAILY RF: 0 ropinirole 1 mg tablet 1 mg PO DAILY@0900 RF: 0 metoprolol succinate 50 mg tablet extended release 24 hr 50 mg PO DAILY@0900 RF: 0 potassium chloride 10 mEq tablet extended release 30 meq PO Q3D RF: 0 Adult Aspirin Regimen 81 mg tablet,delayed release (DR/EC) 81 mg PO DAILY@0900 RF: 0 pantoprazole 40 mg tablet,delayed release (DR/EC) 40 mg PO DAILY@0900 RF: 0 lisinopril 40 mg tablet 40 mg PO DAILY@899 RF: 0 nortriptyline 50 mg capsule 100 mg PO BEDTIME@1999 RF: 0 rosuvastatin 10 mg tablet 10 mg PO BEDTIME@1999 RF: 0 pregabalin 150 mg capsule 150 mg PO BID@899,1999 RF: 0 Levemir FlexTouch U-100 Insuln 100 unit/mL (3 mL) insulin pen 38 unit SUBCUT DAILY@0900 RF: 0 Victoza 2-Bjorn 0.6 mg/0.1 mL (18 mg/3 mL) pen injector 1.8 mg SUBCUT DAILY@0900 RF: 0 Discharge Orders: Discharge Order (Routine); Ordered 01/13/21 Ordered By: Marshall Iglesias Referrals: GI Lab [Other] (You have an appointment to come in to the GI lab for your t ransfusion of vancomycin at 4:00. ) Ernesto Cali DPM [Physician] - 01/28/21 2:30 pm Alexa Graves MD [Hospitalist] - 02/08/21 1:40 pm Cindy Hsu DO [Primary Care Provider] - 01/25/21 9:00 am Discharge Diet: Diabetic Discharge Activity: Resume usual activity and Increase activity as tolerated Patient Instructions: Type 2 Diabetes, Diabetes and Diet, Diabetic Foot Ulcers (GEN), Toe Amputation (DC), PICC, Wound Care (General) Activity Restrictions/Additional Instructions: patient has vega MRSA Bcateremia as well as MRSA for tissue culture,though he has clear cut resection margin.It will be prudent to continue patient on I.V Vancomycin for 2 weeks with goal trough of 15-20 as outpatient.It is more important for the fact that the patient has diabetes.PICC Line has been placed.I.V Infusion orders have been placed. Patient will continue to follow I.D as well as as outpatient. Patient will need weekly CBC, CMP, Vancomycin trough to be checked by home infusion company or at the time of outpatient infusion.and the results needs to be faxed to I.D Office for review. Discharge Attestations Time Spent in Discharge Care*: less than 30 min Specific Discharge Activities: educating patient, educating and/or supporting family/caregiver, discussing with pcp/other providers, discussing with spring encaser/social workers/dc planners, documenting/other paperwork and evaluating patient/reviewing data Status at Discharge: Cognitive status at discharge: cognitively intact , Behavioral status at discharge: cooperative , Overall status at discharge: patient is back to baseline Quality Metrics Clinical Quality Measures During this hospital stay, did patient experience: None Coding Level of Care Code Acute [facility] note Diagnoses Cellulitis of leg, right L03.115 Type 2 diabetes mellitus with other diabetic neurological complication E11.49 Acute renal failure N17.9 Dyslipidemia E78.5
[2021-01-13 13:39] VITALS: BP 147/69; PULSE 81; RESP 18; TEMP 37.3; O2SAT 95
--- NOTE | 2021-01-13 14:03 | PC.NURSE ---
picc line dressing changed
--- NOTE | 2021-01-13 14:16 | PC.NURSE ---
discharge instructions explained and all questions answered. pt taken to exit via wheelchair.
== END 2021-01-13 16:00 | disposition home or self-care (01) | DRG 617 ==
LOC: ER 21:05 → MEDSURG 21:47
PROVIDERS: Podiatrist Foot & Ankle Surgery; Student in an Organized Health Care Education/Training Program; Admitting Provider Hospitalist; Emergency Provider Emergency Medicine; PCP Family Medicine; Visit Provider Internal Medicine
PROC: 0Y6P0Z0 Detachment at Right 1st Toe, Complete, Open Approach (ICD-10-PCS; principal; 2021-01-09 10:55)
PROC: 0JBQ0ZZ Excision of Right Foot Subcutaneous Tissue and Fascia, Open Approach (ICD-10-PCS; CPT 13160; principal; 2021-01-11 12:00)
DX: E11.69 Type 2 diabetes mellitus with other specified complication (principal); M86.9 Osteomyelitis, unspecified; L03.115 Cellulitis of right lower limb; E11.40 Type 2 diabetes mellitus with diabetic neuropathy, unspecified; I11.0 Hypertensive heart disease with heart failure; I50.9 Heart failure, unspecified; E78.5 Hyperlipidemia, unspecified; K21.9 Gastro-esophageal reflux disease without esophagitis; Z96.698 Presence of other orthopedic joint implants; Z89.412 Acquired absence of left great toe; K57.90 Diverticulosis of intestine, part unspecified, without perforation or abscess without bleeding; G25.81 Restless legs syndrome; G47.30 Sleep apnea, unspecified; Z89.421 Acquired absence of other right toe(s); N17.9 Acute kidney failure, unspecified; E11.621 Type 2 diabetes mellitus with foot ulcer; L97.514 Non-pressure chronic ulcer of other part of right foot with necrosis of bone; B95.62 Methicillin resistant Staphylococcus aureus infection as the cause of diseases classified elsewhere; Z79.891 Long term (current) use of opiate analgesic; Z79.82 Long term (current) use of aspirin; Z79.4 Long term (current) use of insulin
CPT/HCPCS: 36415; 36416; 36569; 36592; 71045; 73620; 73630; 80048; 80053; 80202; 81003; 82962; 83036; 83605; 83735; 85025; 85651; 86140; 87040; 87070; 87077; 87176; 87186; 87205; 87635; 88305; 93306; 96365; 96367; 96372; 96375; 96376; 99285; G0379; J1644; J1815; J2250; J2270; J2405; J2543; J3010; J3370; J3490; J7030; L3260; Q0162

== ENCOUNTER 2021-02-01 12:56 | Outpatient (RCR) | payer MEDICAID, SELFPAY ==
[2021-01-14 15:53] VITALS: BMI 39.2
[2021-01-14] MEDS: vancomycin 1,250 MG/250 ML PIGGYBACK 200 MG IV (16:14)
[2021-01-14 16:24] VITALS: BP 139/74; PULSE 64; RESP 18; TEMP 36.6; O2SAT 96
[2021-01-15] MEDS: vancomycin 1,250 MG/250 ML PIGGYBACK 250 MG IV (15:53)
[2021-01-15 15:59] VITALS: BP 125/66; PULSE 63; RESP 18; TEMP 35.8; O2SAT 96
[2021-01-16] MEDS: vancomycin 1,250 MG/250 ML PIGGYBACK 250 MG IV (15:55)
[2021-01-16 15:56] VITALS: BP 112/70; PULSE 68; RESP 16; TEMP 36.9; O2SAT 96
[2021-01-17 15:38] VITALS: BP 136/69; PULSE 77; RESP 18; TEMP 36.6; O2SAT 96
[2021-01-17] MEDS: vancomycin 1,250 MG/250 ML PIGGYBACK 250 MG IV (15:50)
--- NOTE | 2021-01-17 16:10 | PC.NURSE ---
Patient came in asking to have his dressing re-wrapped because it was sliding off his foot. He said he had surgery on 01/12 and has not had his dressing changed since and does not have an appointment to see another provider until 01/25. Dressing had dried drainage. Would was not draining anymore, looked good, asymptomatic for signs of infection. I applied 4x4, wrapped with kerlix and giselle bandage. message left with Dr. Cali's nurse to see about orders for if we need to be changing his dressing daily.
[2021-01-18] MEDS: vancomycin 1,250 MG/250 ML PIGGYBACK 250 MG IV (15:32)
[2021-01-18 15:37] VITALS: BP 130/81; PULSE 73; RESP 18; TEMP 36.6; O2SAT 95
[2021-01-19] MEDS: vancomycin 1,250 MG/250 ML PIGGYBACK 230 MG IV (16:10)
[2021-01-19 16:11] VITALS: BP 139/84; PULSE 68; RESP 16; TEMP 36.6; O2SAT 95
[2021-01-20] MEDS: vancomycin 1,250 MG/250 ML PIGGYBACK 250 MG IV (16:01)
[2021-01-20 16:08] VITALS: BP 125/70; PULSE 73; RESP 18; TEMP 36.4; O2SAT 94
[2021-01-21] MEDS: vancomycin 1,250 MG/250 ML PIGGYBACK 250 MG IV (16:05)
[2021-01-21 16:34] VITALS: BP 118/78; PULSE 70; RESP 18; TEMP 36.9; O2SAT 95
[2021-01-22] MEDS: vancomycin 1,250 MG/250 ML PIGGYBACK 250 MG IV (15:37)
[2021-01-22 16:07] VITALS: BP 164/83; PULSE 76; RESP 18; TEMP 36.9; O2SAT 92
[2021-01-23] MEDS: vancomycin 1,250 MG/250 ML PIGGYBACK 250 MG IV (15:40)
[2021-01-23 16:58] VITALS: BP 153/75; PULSE 80; RESP 18; TEMP 36.5; O2SAT 94
[2021-01-24] MEDS: vancomycin 1,250 MG/250 ML PIGGYBACK 250 MG IV (15:25)
[2021-01-24 16:13] VITALS: BP 126/82; PULSE 77; RESP 18; TEMP 36.3; O2SAT 94
[2021-01-25] MEDS: vancomycin 1,250 MG/250 ML PIGGYBACK 250 MG IV (16:35)
[2021-01-25 16:56] VITALS: BP 140/80; PULSE 79; RESP 18; TEMP 36.5; O2SAT 94
[2021-01-25 17:00] LABS: Vancomycin Trough 6.1 ug/mL (10-15)
[2021-01-26 15:57] VITALS: BP 124/74; PULSE 77; RESP 18; TEMP 36.7; O2SAT 94
[2021-01-26] MEDS: vancomycin 1,250 MG/250 ML PIGGYBACK 250 MG IV (15:57)
[2021-01-26] MEDS: vancomycin 750 MG in sodium chloride 0.9% 250 ML 250 MG IV (17:00)
[2021-01-27 15:00] VITALS: BP 160/85; PULSE 77; RESP 15; TEMP 36.7; O2SAT 95
[2021-01-28] MEDS: vancomycin 1,500 MG/300 ML PIGGYBACK 200 MG IV (14:58)
[2021-01-28 15:12] VITALS: BP 134/79; PULSE 67; RESP 18; O2SAT 94
[2021-01-29 15:14] VITALS: BP 119/74; PULSE 88; RESP 18; TEMP 36.7; O2SAT 93
[2021-01-29 15:40] LABS: Vancomycin Trough 6.4 ug/mL (10-15)
[2021-01-29 16:29] VITALS: BP 119/74; PULSE 88; RESP 18; TEMP 36.7; O2SAT 93
[2021-01-30 16:03] VITALS: BP 115/69; PULSE 83; RESP 18; TEMP 36.8; O2SAT 94
[2021-01-31] MEDS: DAPTOMYCIN IV (14:05)
[2021-01-31] MEDS: SODIUM CHLORIDE 0.9% IV (14:05)
[2021-01-31 14:21] VITALS: BP 123/84; PULSE 87; RESP 18; TEMP 37; O2SAT 94
[2021-01-31 14:43] LABS: CKMB 1.8 ng/mL (0-10.4); Glomerular Filtration Rate 63.6 mL/min (90-130)
--- NOTE | 2021-01-31 15:18 | SUR.PHASEII ---
IV MED INFUSED. PICC LINE FLUSHED WITH 30ml OF SALINE FLUSH. PATIENT DC'ED IN STABLE CONDITION.
[2021-01-31 21:53] LABS: Creatine Phosphokinase 84 U/L (39-308)
[2021-02-01] MEDS: DAPTOMYCIN IV (13:30)
[2021-02-01] MEDS: SODIUM CHLORIDE 0.9% IV (13:30)
[2021-02-01 13:53] VITALS: BP 152/79; PULSE 78; RESP 18; TEMP 35.9; O2SAT 98
[2021-02-02 12:50] VITALS: BP 148/74; PULSE 73; RESP 18; TEMP 36.7; O2SAT 93
[2021-02-02] MEDS: SODIUM CHLORIDE 0.9% IV (12:55)
[2021-02-02] MEDS: DAPTOMYCIN IV (12:55)
[2021-02-03] MEDS: DAPTOMYCIN IV (13:15)
[2021-02-03] MEDS: SODIUM CHLORIDE 0.9% IV (13:15)
[2021-02-03 14:09] VITALS: BP 160/91; PULSE 63; RESP 18; TEMP 36.1; O2SAT 97
[2021-02-04 12:35] VITALS: BP 156/103; PULSE 80; RESP 18; TEMP 36.7; O2SAT 96
[2021-02-04] MEDS: DAPTOMYCIN IV (12:43)
[2021-02-04] MEDS: SODIUM CHLORIDE 0.9% IV (12:43)
[2021-02-05 12:48] VITALS: BP 107/69; PULSE 82; RESP 18; TEMP 36.7; O2SAT 97
[2021-02-05] MEDS: DAPTOMYCIN IV (13:15)
[2021-02-05] MEDS: SODIUM CHLORIDE 0.9% IV (13:15)
[2021-02-06] MEDS: SODIUM CHLORIDE 0.9% IV (13:11)
[2021-02-06] MEDS: DAPTOMYCIN IV (13:11)
[2021-02-06 14:41] VITALS: BP 122/70; PULSE 80; RESP 18; TEMP 36.3; O2SAT 94
[2021-02-07] MEDS: DAPTOMYCIN IV (11:51)
[2021-02-07] MEDS: SODIUM CHLORIDE 0.9% IV (11:51)
[2021-02-07 11:52] VITALS: BP 130/75; PULSE 90; RESP 18; TEMP 36.5; O2SAT 94
[2021-02-08 12:05] VITALS: BP 139/89; PULSE 77; RESP 18; TEMP 36.7; O2SAT 95
[2021-02-08] MEDS: DAPTOMYCIN IV (12:20)
[2021-02-08] MEDS: SODIUM CHLORIDE 0.9% IV (12:20)
[2021-02-08 13:15] LABS: CKMB 1.7 ng/mL (0-10.4); Glomerular Filtration Rate 63.6 mL/min (90-130)
[2021-02-09 12:34] VITALS: BP 164/81; PULSE 81; RESP 16; TEMP 36.3; O2SAT 97
[2021-02-09] MEDS: SODIUM CHLORIDE 0.9% IV (12:52)
[2021-02-09] MEDS: DAPTOMYCIN IV (12:52)
[2021-02-10] MEDS: DAPTOMYCIN IV (12:37)
[2021-02-10] MEDS: SODIUM CHLORIDE 0.9% IV (12:37)
[2021-02-10 12:42] VITALS: BP 133/94; PULSE 86; RESP 18; TEMP 36.3; O2SAT 94
[2021-02-11 12:49] VITALS: BP 146/73; PULSE 77; RESP 18; TEMP 36.7; O2SAT 97
[2021-02-11] MEDS: DAPTOMYCIN IV (12:49)
[2021-02-11] MEDS: SODIUM CHLORIDE 0.9% IV (12:49)
== END 2021-02-11 23:59 | disposition home or self-care (01) ==
LOC: GILAB 12:56
PROVIDERS: Student in an Organized Health Care Education/Training Program; PCP Family Medicine; Visit Provider Internal Medicine
DX: Z22.322 Carrier or suspected carrier of Methicillin resistant Staphylococcus aureus (principal); M86.9 Osteomyelitis, unspecified
CPT/HCPCS: 15852; 36415; 36592; 80202; 81015; 82043; 82550; 82553; 82565; 96365; 96366; J0878; J3370; J7040; J7050

== ENCOUNTER 2021-02-09 07:46 | Emergency (ER) | payer MEDICAID, SELFPAY ==
[2021-02-09 07:52] VITALS: BP 159/87; PULSE 75; RESP 16; TEMP 36.6; O2SAT 96; BMI 35.9
[2021-02-09 07:56] VITALS: O2SAT 96
--- NOTE | 2021-02-09 07:56 | ED_ITS ---
HPI - Skin/Abscess/Foreign Bdy General: Chief complaint: Skin/Abscess/Foreign Body Stated complaint: rash Time Seen by Provider: 02/09/21 07:47 History of Present Illness: HPI narrative: Patient is a 50-year-old male comes to the ED with pruritic rash on abdomen. Patient says last night he started having some itching on his right flank region. This morning he woke up and had a pruritic red rash on the right flank region. Patient denies any known contact any chemical irritants. Denies any recent change in medications, soaps, lotions or detergents. Associated symptoms: Deny chills, fever(s), nausea or vomiting Review of Systems Const: Denies: fever(s), chills or fatigue Eyes: Denies: change in vision or eye discomfort ENMT: Denies: throat pain, odynophagia, nasal discharge or nasal congestion Card: Denies: chest pain, palpitations, edema, swelling of feet/ankles, dyspnea on exertion or orthopnea Resp: Denies: dyspnea, productive cough or non-productive cough GI: Denies: abdominal pain, nausea, vomiting, diarrhea, constipation or hematochezia : Denies: flank pain, difficulty urinating, dysuria or hematuria Musc: Denies: neck pain, back pain or extremity swelling Skin/Breast: Reports: rash (Right flank), pruritus (Right flank) and erythema (Right flank); Denies: new lesions Neuro: Denies: headache(s), numbness in extremities or weakness in extremities PFS ED PFSH: Medical History Acute renal failure Amputated great toe Cellulitis and abscess of right lower extremity Cellulitis of leg, right CHF (congestive heart failure) Diabetes mellitus with polyneuropathy Diverticulosis Dyslipidemia Dyslipidemia Encounter for long-term use of opiate analgesic Essential (primary) hypertension Hallux rigidus, right foot 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 [place] Dr. Leal Status post PICC central line placement Family History Mother Cancer Denies family history of Diabetes CAD (coronary artery disease) Clotting disorder Dementia Hyperlipidemia Psychiatric illness Chronic kidney disease (CKD) Suicide Anesthesia complication Bleeding disorder Family history of premature coronary artery disease Lung disease Hypertension Stroke Social History Smoking and tobacco status: never smoked Second hand smoke exposure: No Alcohol intake: former Desire information about alcohol rehabilitation?: No Counseling given: No Adopted: No Caregiver/support person: Yes Lives independently: Yes Household members: spouse and significant other Housing: House Marital status: Life Partner Number of children: 0 Highest education level completed: High School Graduate service: Yes Current occupational status: retired Pets and animals: Yes History of recent travel: No Current gender identity: Male Yolande/Jewish: None Agree to transfusion: Yes Financial difficulty paying for basics: Somewhat Hard Physical Exam Const: COMMON NORMALS: no acute distress, patient oriented x3, healthy appearing and alert GENERAL APPEARANCE: cooperative and comfortable HENMT: COMMON NORMALS: normocephalic HEAD & SCALP: normocephalic MOUTH: Normal oral and palatal mucosa present THROAT: posterior oropharynx normal and uvula midline Neck/C-Spine: COMMON NORMALS: supple GENERAL: Yes normal visual inspection Resp: COMMON NORMALS: normal respiratory effort, No retractions, No use of accessory muscles and clear to auscultation bilaterally AUSCULTATION: clear to auscultation bilaterally Cardio: COMMON NORMALS: regular rate, regular rhythm, S1 normal heart sound present, S2 normal heart sound present, No gallops present (Cardio), No clicks present (Cardio), No murmurs present (Cardio) and Peripheral pulses 2+ throughout RATE: regular rate RHYTHM: regular rhythm HEART SOUNDS: S1 normal heart sound present and S2 normal heart sound present PERIPHERAL PULSES: Peripheral pulses 2+ throughout GI: COMMON NORMALS: Normal to inspection, nondistended, normoactive bowel sounds present, Soft to palpation, non-tender and no masses PALPATION: Yes Soft to palpation : COMMON NORMALS: Yes no CVA tenderness BLADDER/KIDNEY EXAM: Yes no CVA tenderness Back/Pelvis: COMMON NORMALS: no CVA tenderness Extremity: COMMON NORMALS: normal to inspection Neuro: COMMON NORMALS: patient oriented x3 and moves all extremities SENSORIUM/ORIENTATION: Yes alert Skin: NARRATIVE SKIN EXAM: Patient has a erythemic, pruritic maculopapular rash on right flank that is approximately 12 cm in diameter. Exam findings suggestive of contact dermatitis. GENERAL SKIN EXAM: dry skin Course Vital Signs: Vital signs: Vital Signs Temperature 97.9 F 02/09/21 07:52 Pulse Rate 75 02/09/21 07:52 Respiratory Rate 16 02/09/21 07:52 Blood Pressure 159/87 02/09/21 07:52 Pulse Oximetry 96 02/09/21 07:56 MDM - Skin/Abscess/Foreign Bdy MDM Narrative: Medical decision making narrative: Patient is a 50-year-old male comes to the ED with a pruritic rash. Patient denies any known contact with chemical irritant and denies any recent medication changes, changes to soaps, detergents or lotions. Exam findings show a maculopapular erythemic and pruritic rash on right flank. Exam findings suggestive of contact dermatitis. Caused by unknown irritant. Patient was given a dose of Kenalog IM and discharged home with a prescription for triamcinolone 0.1% cream. Discharge Plan Discharge Patient Disposition: Home Clinical Impression: Contact dermatitis Qualifiers: Contact dermatitis type: irritant Contact dermatitis trigger: unspecified trigger Qualified Code(s): L24.9 - Irritant contact dermatitis, unspecified cause Condition: Stable Prescriptions: New triamcinolone acetonide 0.1 % cream 1 applic topical BID Qty: 30 RF: 0 No Action (DME) Articulating AFO See Rx Instructions .ROUTE .MEDSUPPLY Qty: 1 RF: 0 daptomycin 500 mg recon soln 682 mg IV Q24H 30 Days Qty: 30 RF: 0 (DME) TKO splint See Rx Instructions .Route .MEDSUPPLY Qty: 1 RF: 0 hydrocodone-acetaminophen 10-325 mg tablet 1 tab PO .5 times a day 30 Days Qty: 150 RF: 0 tramadol 50 mg tablet 100 mg PO QID PRN (Reason: Pain) 30 Days Qty: 240 RF: 1 (DME) ASO See Rx Instructions .Route .MEDSUPPLY Qty: 1 RF: 0 insulin aspart U-100 [Novolog Flexpen U-100 Insulin] 100 unit/mL (3 mL) insulin pen 20 unit SUBCUT TID Qty: 15 RF: 2 (DME) Diabetic shoes with molded inserts See Rx Instructions .Route .MEDSUPPLY Qty: 1 RF: 0 (DME) pen needle, diabetic [TechLITE Pen Needle] 32 gauge x 1/4 needle See Rx Instructions .ROUTE .MEDSUPPLY Qty: 100 RF: 3 blood sugar diagnostic [OneTouch Verio test strips] Strip See Rx Instructions .ROUTE .COMPLEX Qty: 100 RF: 11 rosuvastatin 10 mg tablet 10 mg PO BEDTIME@1999 Qty: 90 RF: 0 (DME) Right toe filler See Rx Instructions .Route .MEDSUPPLY Qty: 1 RF: 0 furosemide 20 mg tablet 20 - 40 mg PO DAILY RF: 0 ropinirole 1 mg tablet 1 mg PO DAILY@0900 RF: 0 metoprolol succinate 50 mg tablet extended release 24 hr 50 mg PO DAILY@0900 RF: 0 potassium chloride 10 mEq tablet extended release 30 meq PO Q3D RF: 0 aspirin [Adult Aspirin Regimen] 81 mg tablet,delayed release (DR/EC) 81 mg PO DAILY@0900 RF: 0 pantoprazole 40 mg tablet,delayed release (DR/EC) 40 mg PO DAILY@0900 RF: 0 lisinopril 40 mg tablet 40 mg PO DAILY@00 RF: 0 nortriptyline 50 mg capsule 100 mg PO BEDTIME@1999 RF: 0 pregabalin 150 mg capsule 150 mg PO BID@899,1999 RF: 0 Victoza 2-Bjonr 0.6 mg/0.1 mL (18 mg/3 mL) pen injector 1.8 mg SUBCUT DAILY@0900 RF: 0 Levemir FlexTouch U-100 Insuln 100 unit/mL (3 mL) insulin pen 42 unit SUBCUT DAILY@0900 30 Days Qty: 15 RF: 0 Discharge Orders: Discharge ED (Routine); Ordered 02/09/21 Ordered By: Derik Miranda Referrals: Cindy Hsu DO [Primary Care Provider] - Discharge Diet: Regular Discharge Activity: Resume usual activity Patient Instructions: Contact Dermatitis (ED) Activity Restrictions/Additional Instructions: Follow-up with medical provider as directed in 7 to 10 days for reevaluation. take medications as prescribed. Return to the ER or your medical provider if condition worsens. Please read and understand discharge instructions. If any questions, please ask. Coding Level of Care Code ED Motorcycle Fabricator for Chg Fwd Exam Comprehensive
== END 2021-02-09 08:21 | disposition home or self-care (01) ==
PROVIDERS: Emergency Provider Physician Assistant; PCP Family Medicine
DX: L24.9 Irritant contact dermatitis, unspecified cause (principal); Z79.4 Long term (current) use of insulin; Z79.82 Long term (current) use of aspirin; I11.0 Hypertensive heart disease with heart failure; I50.9 Heart failure, unspecified; E11.42 Type 2 diabetes mellitus with diabetic polyneuropathy; E78.5 Hyperlipidemia, unspecified
CPT/HCPCS: 96372; 99283

== ENCOUNTER 2021-02-14 12:38 | Outpatient (RCR) | payer MEDICAID, SELFPAY ==
[2021-02-12 12:42] VITALS: BP 134/87; PULSE 74; RESP 18; TEMP 36.3; O2SAT 95; BMI 35.9
[2021-02-12] MEDS: SODIUM CHLORIDE 0.9% IV (13:04)
[2021-02-12] MEDS: DAPTOMYCIN IV (13:04)
[2021-02-13] MEDS: SODIUM CHLORIDE 0.9% IV (12:30)
[2021-02-13] MEDS: DAPTOMYCIN IV (12:30)
[2021-02-13 12:47] VITALS: BP 146/92; PULSE 70; RESP 18; TEMP 36.2; O2SAT 96
[2021-02-14] MEDS: SODIUM CHLORIDE 0.9% IV (12:52)
[2021-02-14] MEDS: DAPTOMYCIN IV (12:52)
[2021-02-14 13:04] VITALS: BP 131/78; PULSE 69; RESP 18; TEMP 36.4; O2SAT 94
[2021-02-14 13:51] LABS: Creatinine Clr Calc Pharmacy 99.0658; Glomerular Filtration Rate 70.3 mL/min (90-130)
[2021-02-14 13:56] LABS: CKMB 1.5 ng/mL (0-10.4)
[2021-02-15 12:02] VITALS: BP 150/83; PULSE 76; RESP 18; TEMP 36.1; O2SAT 96
[2021-02-15] MEDS: DAPTOMYCIN IV (12:20)
[2021-02-15] MEDS: SODIUM CHLORIDE 0.9% IV (12:20)
[2021-02-16 12:05] VITALS: BP 125/75; PULSE 73; RESP 18; TEMP 35.7; O2SAT 95
[2021-02-16] MEDS: SODIUM CHLORIDE 0.9% IV (12:14)
[2021-02-16] MEDS: DAPTOMYCIN IV (12:14)
[2021-02-17] MEDS: SODIUM CHLORIDE 0.9% IV (12:37)
[2021-02-17] MEDS: DAPTOMYCIN IV (12:37)
[2021-02-17 13:11] VITALS: BP 102/68; PULSE 73; RESP 18; TEMP 36.3; O2SAT 96
--- NOTE | 2021-02-17 13:57 | PC.NURSE ---
Today, 02/17/21, Mr Rosales's picc line was sluggish to flush in the white port and would not flush in the purple port. No blood return on either.
[2021-02-18 12:24] VITALS: BP 132/79; PULSE 90; RESP 18; TEMP 36.8; O2SAT 98
[2021-02-18] MEDS: SODIUM CHLORIDE 0.9% IV (12:37)
[2021-02-18] MEDS: DAPTOMYCIN IV (12:37)
[2021-02-19 12:54] VITALS: BP 124/74; PULSE 75; RESP 18; TEMP 36.2; O2SAT 95
[2021-02-19] MEDS: DAPTOMYCIN IV (13:20)
[2021-02-19] MEDS: SODIUM CHLORIDE 0.9% IV (13:20)
--- NOTE | 2021-02-19 14:00 | SUR.PREOP ---
Picc line white one sluggish to flush. Medicine infused without difficulty. Purple side would not flush at all.
[2021-02-20] MEDS: SODIUM CHLORIDE 0.9% IV (12:17)
[2021-02-20] MEDS: DAPTOMYCIN IV (12:17)
[2021-02-20 12:18] VITALS: BP 135/84; PULSE 71; RESP 18; TEMP 36.6; O2SAT 98
[2021-02-21] MEDS: DAPTOMYCIN IV (12:18)
[2021-02-21] MEDS: SODIUM CHLORIDE 0.9% IV (12:18)
[2021-02-21 12:30] VITALS: BP 139/74; PULSE 68; RESP 18; TEMP 36.3; O2SAT 99
[2021-02-21 13:06] LABS: CKMB 2.2 ng/mL (0-10.4); Glomerular Filtration Rate 63.6 mL/min (90-130)
[2021-02-22 12:25] VITALS: BP 130/71; PULSE 70; RESP 18; TEMP 36.6; O2SAT 93
[2021-02-22] MEDS: DAPTOMYCIN IV (12:48)
[2021-02-22] MEDS: SODIUM CHLORIDE 0.9% IV (12:48)
--- NOTE | 2021-02-23 07:19 | PC.NURSE ---
0719 Dr. Graves notified of pt's CKMB, GFR, and Creatinine levels. Orders received to continue current dose of Daptomycin with completion date 03/01/21.
[2021-02-23] MEDS: SODIUM CHLORIDE 0.9% IV (11:25)
[2021-02-23] MEDS: DAPTOMYCIN IV (11:25)
[2021-02-23 11:35] VITALS: BP 154/78; PULSE 73; RESP 18; TEMP 36.2; O2SAT 96
--- NOTE | 2021-02-23 12:01 | PC.NURSE ---
1200 Dressing changed to left upper arm PICC dressing using sterile technique. Positive blood return prior to infusion. Mancia port flushed with saline without difficulty. Second port flushes with some difficulty, but able to flush. Pt tolerated well.
[2021-02-24] MEDS: DAPTOMYCIN IV (11:50)
[2021-02-24] MEDS: SODIUM CHLORIDE 0.9% IV (11:50)
[2021-02-24 11:51] VITALS: BP 146/83; PULSE 76; RESP 18; TEMP 36.5; O2SAT 96
[2021-02-25 11:30] VITALS: BP 143/81; PULSE 71; RESP 18; TEMP 36.7; O2SAT 95
[2021-02-25] MEDS: SODIUM CHLORIDE 0.9% IV (12:18)
[2021-02-25] MEDS: DAPTOMYCIN IV (12:18)
[2021-02-26] MEDS: SODIUM CHLORIDE 0.9% IV (08:55)
[2021-02-26] MEDS: DAPTOMYCIN IV (08:55)
[2021-02-26 09:01] VITALS: BP 114/86; PULSE 71; RESP 18; TEMP 36.5; O2SAT 98
[2021-02-27] MEDS: DAPTOMYCIN IV (12:11)
[2021-02-27] MEDS: SODIUM CHLORIDE 0.9% IV (12:11)
[2021-02-27 12:17] VITALS: BP 140/90; PULSE 83; RESP 18; TEMP 36.3; O2SAT 96
[2021-02-28] MEDS: SODIUM CHLORIDE 0.9% IV (11:59)
[2021-02-28] MEDS: DAPTOMYCIN IV (11:59)
[2021-02-28 12:02] VITALS: BP 160/79; PULSE 83; RESP 18; TEMP 36.5; O2SAT 96
[2021-02-28 12:37] LABS: CKMB 1.8 ng/mL (0-10.4); Creatinine Clr Calc Pharmacy 83.8249
--- NOTE | 2021-02-28 12:52 | PC.NURSE ---
Dr Uribe's office notified of lab results and decreased GFR.
--- NOTE | 2021-02-28 13:39 | PC.NURSE ---
Dr. Graves notified of GFR 58 and Creatnine 1.3. Pt to receive final dose of Daptomycin tomorrow and PICC line to be pulled following dose. Pt to be started on oral Doxycycline. Prescription called into [facility]. ESR lab to be drawn tomorrow. Pt to follow-up in Dr. Graves's office 03/08/21.
[2021-03-01] MEDS: SODIUM CHLORIDE 0.9% IV (11:47)
[2021-03-01] MEDS: DAPTOMYCIN IV (11:47)
[2021-03-01 11:52] VITALS: BP 154/75; PULSE 86; RESP 18; TEMP 36.3; O2SAT 94
--- NOTE | 2021-03-01 12:38 | PC.NURSE ---
PICC line to left upper arm removed. Pt tolerated well. Cath tip intact. Pressure held for 5 min. No bleeding, hematoma, or SOB noted. Pt educated on signs and symptoms to look for following PICC line removal - redness, drainage, puss, fever, SOB, or difficulty breathing - and to report to ER.
[2021-03-01 13:13] LABS: C Reactive Protein 6.4 mg/L (0.0-4.9)
[2021-03-01 14:30] LABS: Erythrocyte Sedimentation Rate 28 mm/hr (0-10)
== END 2021-03-14 23:59 | disposition home or self-care (01) ==
LOC: GILAB 12:38
PROVIDERS: Student in an Organized Health Care Education/Training Program; PCP Family Medicine; Visit Provider Internal Medicine
DX: Z22.322 Carrier or suspected carrier of Methicillin resistant Staphylococcus aureus (principal); M86.9 Osteomyelitis, unspecified
CPT/HCPCS: 36415; 36592; 82553; 82565; 85651; 86140; 96365; J0878

== ENCOUNTER → 2021-03-04 12:55 | Outpatient (BNVA) | payer MEDICAID, SELFPAY | PROVIDERS: PCP Family Medicine; Visit Provider Anesthesiology | DX: M25.511 Pain in right shoulder (principal); M25.512 Pain in left shoulder; M79.604 Pain in right leg; M79.605 Pain in left leg; G25.81 Restless legs syndrome; S98.119 Complete traumatic amputation of unspecified great toe; X58.XXXA Exposure to other specified factors, initial encounter; S93.431D Sprain of tibiofibular ligament of right ankle, subsequent encounter; X58.XXXD Exposure to other specified factors, subsequent encounter; Z79.891 Long term (current) use of opiate analgesic | CPT/HCPCS: 99214 ==

== ENCOUNTER 2021-03-05 19:28 | Emergency (ER) | payer MEDICAID, SELFPAY ==
[2021-03-05 19:34] VITALS: BP 130/71; PULSE 75; RESP 18; TEMP 36.8; O2SAT 94; BMI 35.9
--- NOTE | 2021-03-05 20:38 | XRR_ITS ---
PROCEDURE INFORMATION: Exam: XR Right Ankle Exam date and time: 03/05/2021 8:49 PM Age: 50 years old Clinical indication: Pain; Ankle; Right; Prior surgery; Surgery date: 6+ months; Additional info: Ankle injury and pain TECHNIQUE: Imaging protocol: XR Right ankle. Views: 3 or more views. COMPARISON: No relevant prior studies available. FINDINGS: Bones/joints: No acute fracture or dislocation. Surgical changes in the distal tibia and fibula noted. Soft tissues: Swelling of the soft tissues around the ankle is evident. XR/XR ankle RT min 3V* [id number] IMPRESSION: Swelling of the ankle soft tissues, without clear evidence of underlying fracture or dislocation.
[2021-03-05 21:01] VITALS: BP 145/72; PULSE 76; RESP 16; O2SAT 98
--- NOTE | 2021-03-05 22:28 | W.ED.EXTPRO ---
HPI - Extremity Problem General: Chief complaint: Extremity Injury, Lower Stated complaint: ankle injury Time Seen by Provider: 03/05/21 20:40 History of Present Illness: HPI Narrative: The patient is a 50-year-old male with past medical history type 2 diabetes with neuropathy who comes to the ER complaining of right ankle pain and swelling since earlier today. He cannot feel his ankle so he does not know that it is in pain but he notices it is swelling today. 2 months ago he broke the ankle and had to have surgery on it so he is worried that he broke it again. He thinks he got out of his truck earlier today and injured it then. MD Complaint: extremity swelling Pain Consistency: constant Location: right Associated symptoms: Reports no associated symptoms; Deny chest pain or rash Review of Systems General: Reports: 10 or more systems reviewed and unremarkable except in HPI and below Const: Denies: fatigue Eyes: Denies: change in vision, blurry vision or eye redness ENMT: Denies: throat pain, swelling of lips/tongue, ear or mastoid pain or nasal congestion Card: Denies: chest pain, palpitations, irregular heart rhythm, edema, dyspnea on exertion or orthopnea Resp: Denies: dyspnea, productive cough or non-productive cough GI: Denies: abdominal pain, diarrhea or GI cramping : Denies: flank pain, urinary frequency or urinary urgency Musc: Reports: joint swelling; Denies: neck pain, back pain, extremity pain, joint pain, joint redness, limited range of motion or muscle weakness Skin/Breast: Denies: rash, pruritus, erythema, skin pain or skin tenderness Neuro: Denies: headache(s), numbness in extremities, weakness in extremities, sensory changes, difficulty walking, dizziness, confusion or Slurred speech present Psych: Denies: anxiety or depression Endo: Denies: polyuria All/Imm: Denies: urticaria, throat swelling or tongue swelling PFSH ED PFSH: Medical History Acute renal failure Amputated great toe Cellulitis and abscess of right lower extremity Cellulitis of leg, right CHF (congestive heart failure) Diabetes mellitus with polyneuropathy Diverticulosis Dyslipidemia Dyslipidemia Encounter for long-term use of opiate analgesic Essential (primary) hypertension Hallux rigidus, right foot History of amputation of left great toe Non-pressure chronic ulcer of other part of right foot with necrosis of bone Restless leg syndrome Shoulder pain Sleep apnea in adult Type 2 diabetes mellitus with other diabetic neurological complication Wound dehiscence, surgical Surgical History H/O hernia repair History of amputation of lesser toe of right foot Hx of amputation of lesser toe Left foot big toe and second toe 01/21/20 at [facility] [place] Dr. Leal Status post PICC central line placement Family History Mother Cancer Denies family history of Diabetes CAD (coronary artery disease) Clotting disorder Dementia Hyperlipidemia Psychiatric illness Chronic kidney disease (CKD) Suicide Anesthesia complication Bleeding disorder Family history of premature coronary artery disease Lung disease Hypertension Stroke Social History (Updated 03/04/21 @ 13:33 by Nataly Maloney LPN) Smoking and tobacco status: never smoked Second hand smoke exposure: No Alcohol intake: former Desire information about alcohol rehabilitation?: No Counseling given: No Adopted: No Caregiver/support person: Yes Lives independently: Yes Household members: spouse and significant other Housing: House Marital status: Life Partner Number of children: 0 Highest education level completed: High School Graduate service: Yes Current occupational status: retired Pets and animals: Yes History of recent travel: No Current gender identity: Male Yolande/Worship: None Agree to transfusion: Yes Financial difficulty paying for basics: Somewhat Hard Physical Exam Const: COMMON NORMALS: no acute distress, average body habitus, patient oriented x3, no limitations, healthy appearing, alert and well nourished GENERAL APPEARANCE: cooperative, comfortable, well kempt and well developed ORIENTATION/CONSCIOUSNESS: Yes awake, Yes oriented to person, Yes oriented to place and Yes oriented to time HENMT: COMMON NORMALS: normocephalic, external ears normal and Normal external nose present HEAD & SCALP: normal to inspection and normocephalic NOSE: Normal external nose present EXTERNAL EAR: Yes external ears normal MOUTH: Normal oral and palatal mucosa present THROAT: posterior oropharynx normal Eye: COMMON NORMALS: Equal, round and reactive pupils present and EOMs intact bilaterally GENERAL EYE: appearance normal, both eyes and all related structures PUPIL: Yes Equal, round and reactive pupils present Neck/C-Spine: COMMON NORMALS: full ROM, no lymphadenopathy, no meningeal signs and no JVD GENERAL: Yes normal visual inspection Lymph: LYMPHATIC: no lymphadenopathy noted Chest: COMMONS NORMALS: normal inspection of the chest and normal palpation of entire chest wall Resp: COMMON NORMALS: normal respiratory effort, No retractions, No use of accessory muscles, clear to auscultation bilaterally and percussion normal EFFORT & INSPECTION: Yes able to speak in complete sentences AUSCULTATION: clear to auscultation bilaterally PERCUSSION: percussion normal Cardio: COMMON NORMALS: no JVD, regular rate, regular rhythm, S1 normal heart sound present, S2 normal heart sound present and Peripheral pulses 2+ throughout RATE: regular rate RHYTHM: regular rhythm HEART SOUNDS: S1 normal heart sound present and S2 normal heart sound present PERIPHERAL PULSES: Peripheral pulses 2+ throughout GI: COMMON NORMALS: Normal to inspection, nondistended, normoactive bowel sounds present, Soft to palpation, non-tender and no masses INSPECTION: Yes normal to inspection PALPATION: Yes Soft to palpation : COMMON NORMALS: Yes no CVA tenderness BLADDER/KIDNEY EXAM: Yes no CVA tenderness Back/Pelvis: COMMON NORMALS: no CVA tenderness, thoracic and lumbar spine normal to inspection, no thoracic nor lumbar tenderness and thoraco-lumbar ROM normal Extremity: COMMON NORMALS: normal to inspection, full ROM, capillary refill normal, no joint enlargement and no pedal edema NARRATIVE EXTREMITY EXAM: Chronic amputations of multiple toes. His right ankle is slightly swollen over the ATFL ligament. He is not tender likely because he has chronic neuropathy from his diabetes and is numb up to mid calf. No significant laxity of the ligaments. GENERAL: Yes normal exam except as noted Neuro: COMMON NORMALS: patient oriented x3, CN's II-XII intact bilaterally, moves all extremities, no focal motor deficits, no sensory deficits noted and gait normal SENSORIUM/ORIENTATION: Yes alert, Yes oriented to person, Yes oriented to place and Yes oriented to time MENINGEAL SIGNS: Yes no meningeal signs Psych: COMMON NORMALS: mental status grossly normal, Normal thought process present, cooperative, normal affect and speech normal APPEARANCE: Yes well kempt ATTITUDE: Yes calm SPEECH: Yes normal speech THOUGHT PROCESS: Normal thought process present Skin: COMMON NORMALS: no rashes or lesions noted GENERAL SKIN EXAM: no rashes or lesions noted Course Vital Signs: Vital signs: Vital Signs Temperature 98.3 F 03/05/21 19:34 Pulse Rate 76 03/05/21 21:01 Respiratory Rate 16 03/05/21 21:01 Blood Pressure 145/72 03/05/21 21:01 Pulse Oximetry 98 03/05/21 21:01 MDM - Extremity (Nontraumatic) MDM Narrative: Medical decision making narrative: X-rays negative for fracture. Likely an ankle sprain. Juan wrap and stable for discharge. He has neuropathy so I told him to use crutches which she has at home to prevent further injury as he will not know if he is hurting himself because of the neuropathy. Follow-up with primary care physician this week and return to the ER with worsening symptoms. Discharge Plan Discharge Patient Disposition: Home Clinical Impression: Ankle sprain Condition: Stable Prescriptions: No Action (DME) Articulating AFO See Rx Instructions .ROUTE .MEDSUPPLY Qty: 1 RF: 0 daptomycin 500 mg recon soln 682 mg IV Q24H 30 Days Qty: 30 RF: 0 (DME) TKO splint See Rx Instructions .Route .MEDSUPPLY Qty: 1 RF: 0 (DME) ASO See Rx Instructions .Route .MEDSUPPLY Qty: 1 RF: 0 hydrocodone-acetaminophen 10-325 mg tablet 1 tab PO .5 times a day 30 Days Qty: 150 RF: 0 hydrocodone-acetaminophen 10-325 mg tablet 1 tab PO .5 times a day 30 Days Qty: 150 RF: 0 tramadol 50 mg tablet 100 mg PO QID PRN (Reason: Pain) 30 Days Qty: 240 RF: 1 ropinirole 1 mg tablet 1 mg PO DAILY@0900 30 Days Qty: 30 RF: 1 nortriptyline 50 mg capsule 100 mg PO BEDTIME@1999 30 Days Qty: 60 RF: 1 Levemir FlexTouch U-100 Insuln 100 unit/mL (3 mL) insulin pen 45 unit SUBCUT DAILY@0900 RF: 0 insulin aspart U-100 [Novolog Flexpen U-100 Insulin] 100 unit/mL (3 mL) insulin pen 20 unit SUBCUT TID Qty: 15 RF: 2 (DME) Diabetic shoes with molded inserts See Rx Instructions .Route .MEDSUPPLY Qty: 1 RF: 0 (DME) pen needle, diabetic [TechLITE Pen Needle] 32 gauge x 1/4 needle See Rx Instructions .ROUTE .MEDSUPPLY Qty: 100 RF: 3 blood sugar diagnostic [OneTouch Verio test strips] Strip See Rx Instructions .ROUTE .COMPLEX Qty: 100 RF: 11 rosuvastatin 10 mg tablet 10 mg PO BEDTIME@1999 Qty: 90 RF: 0 (DME) Right toe filler See Rx Instructions .Route .MEDSUPPLY Qty: 1 RF: 0 furosemide 20 mg tablet 20 - 40 mg PO DAILY Qty: 60 RF: 3 Victoza 2-Bjorn 0.6 mg/0.1 mL (18 mg/3 mL) pen injector 1.8 mg SUBCUT DAILY@0900 Qty: 6 RF: 2 metoprolol succinate 50 mg tablet extended release 24 hr 50 mg PO DAILY@0900 RF: 0 potassium chloride 10 mEq tablet extended release 30 meq PO Q3D RF: 0 aspirin [Adult Aspirin Regimen] 81 mg tablet,delayed release (DR/EC) 81 mg PO DAILY@0900 RF: 0 pantoprazole 40 mg tablet,delayed release (DR/EC) 40 mg PO DAILY@0900 RF: 0 lisinopril 40 mg tablet 40 mg PO DAILY@0900 RF: 0 pregabalin 150 mg capsule 150 mg PO BID@899,1999 RF: 0 doxycycline hyclate 100 mg tablet 100 mg PO BID 14 Days Qty: 28 RF: 0 Discharge Orders: Discharge ED (Routine); Ordered 03/05/21 Ordered By: Judson Jarvis Referrals: Cindy Hsu DO [Primary Care Provider] - Discharge Diet: Advance as tolerated Discharge Activity: Limit activity as instructed Patient Instructions: Ankle Sprain (ED), Opioid Safety Activity Restrictions/Additional Instructions: You have sprained your ankle. X-ray shows no fractures but it does show the swelling that we can see. Please use Juan wrap to help with the pain and swelling and use crutches to stay off of it. You have a unique problem because you cannot feel pain related to your neuropathy so please try not to walk on it as it can further injure the ankle without you even knowing it. Follow-up with primary care physician early this week and return to the ER with worsening symptoms at any time Coding Level of Care Code ED Packaging Sales Consultant for Davina Whelan
[2021-03-05 22:42] VITALS: BP 141/76; PULSE 68; RESP 16; O2SAT 97
== END 2021-03-05 22:44 | disposition home or self-care (01) ==
PROVIDERS: Emergency Provider Family Medicine; PCP Family Medicine
DX: S93.401A Sprain of unspecified ligament of right ankle, initial encounter (principal); X58.XXXA Exposure to other specified factors, initial encounter; E11.40 Type 2 diabetes mellitus with diabetic neuropathy, unspecified; I11.0 Hypertensive heart disease with heart failure; I50.9 Heart failure, unspecified; E78.5 Hyperlipidemia, unspecified; Z89.412 Acquired absence of left great toe; Z89.422 Acquired absence of other left toe(s); Z89.421 Acquired absence of other right toe(s)
CPT/HCPCS: 73610; 99282

== ENCOUNTER → 2021-03-22 09:29 | Outpatient (BNVA) | payer MEDICAID, SELFPAY | PROVIDERS: PCP Family Medicine; Visit Provider Family Medicine | DX: E11.49 Type 2 diabetes mellitus with other diabetic neurological complication (principal) | CPT/HCPCS: 80053; 83036 ==

== ENCOUNTER 2021-03-28 07:55 | Outpatient (CLI) | payer MEDICAID, SELFPAY ==
--- NOTE | 2021-03-28 08:07 | MR_ITS ---
WS: [id number] MRI RIGHT ANKLE with and without CONTRAST. COMPARISON: 06/25/2020 RIGHT foot, radiographs 03/05/2021 Multiplanar, multisequence imaging is performed with and without contrast. Syndesmosis anchors in the distal tibia. There is edema through the distal tibia which extends along the tibial plafond and medial malleolus. Also on the STIR sequences there is a linear area of decreas ed signal intensity. This may be a fracture. Patient did have a recent trauma as indicated on the rad iograph from 03/05/2021. There is also edema at the posterior talus which may be a small avulsion frac ture. No significant amount of edema along the screws in the distal tibia. There is a small amount of increased signal in the distal fibula which may be an artifact. Moderate narrowing of the tibiotalar joint. There is a small amount of edema in the subtalar portion of the calcaneus. There is a small a mount of enhancement in the central portion of the calcaneus but this was also present on the prior s tudy. There is enhancement in the distal tibia plafond surrounding the suspected fracture site. There are s mall loose bodies at the medial malleolus which are well-circumscribed be from an old injury. Moderate amount of soft tissue edema surrounding the peroneus tendons. No tendon tear identified. The Achilles tendon is intact. No tendon dislocation. MR/MR ankle RT wo/w con [id number] IMPRESSION: 1. Edema along the tibial plafond extends to the posterior talus and into the medial malleolus. There is an underlying lucency which is very suspicious for a nondisplaced fracture. Favor this is probably a fracture versus osteomyelitis. 2. Moderate amount of soft tissue edema around the ankle, greatest surrounding the peroneal tendons. 3. No enhancement along the syndesmosis anchors. 4. Appearance of the calcaneus is stable over multiple prior years. No new are as of enhancement.
[2021-03-28] MEDS: gadobenate dimeglumine 20 mL vial IV (09:03)
== END 2021-03-28 07:56 | disposition home or self-care (01) ==
PROVIDERS: PCP Family Medicine; Visit Provider Podiatrist Foot & Ankle Surgery
DX: Z48.89 Encounter for other specified surgical aftercare (principal); Z98.890 Other specified postprocedural states; R60.0 Localized edema
CPT/HCPCS: 73723; A9577

== ENCOUNTER 2021-04-08 13:56 | Outpatient (CLI) | payer MEDICAID, SELFPAY | END 2021-04-08 13:57 | disposition home or self-care (01) | LOC: SPT 13:57 | PROVIDERS: PCP Family Medicine; Visit Provider Podiatrist Foot & Ankle Surgery | DX: Z46.89 Encounter for fitting and adjustment of other specified devices (principal); S82.864D Nondisplaced Maisonneuve's fracture of right leg, subsequent encounter for closed fracture with routine healing; S93.431D Sprain of tibiofibular ligament of right ankle, subsequent encounter; X58.XXXD Exposure to other specified factors, subsequent encounter | CPT/HCPCS: 97760; L1902 ==

== ENCOUNTER → 2021-04-29 13:01 | Outpatient (BNVA) | payer MEDICAID, SELFPAY | PROVIDERS: PCP Family Medicine; Visit Provider Anesthesiology | DX: G89.29 Other chronic pain (principal); M25.511 Pain in right shoulder; M25.512 Pain in left shoulder; S98.112A Complete traumatic amputation of left great toe, initial encounter; X58.XXXA Exposure to other specified factors, initial encounter; G25.81 Restless legs syndrome; F17.210 Nicotine dependence, cigarettes, uncomplicated; Z79.891 Long term (current) use of opiate analgesic | CPT/HCPCS: 99214 ==

== ENCOUNTER → 2021-05-10 15:26 | Outpatient (BNVA) | payer MEDICAID, SELFPAY | PROVIDERS: PCP Family Medicine; Visit Provider Podiatrist Foot & Ankle Surgery | DX: Z48.89 Encounter for other specified surgical aftercare (principal) | CPT/HCPCS: 73610 ==

== ENCOUNTER 2021-05-13 14:03 | Emergency (ER) | payer MEDICAID, SELFPAY ==
[2021-05-13 14:44] VITALS: BMI 34.4
--- NOTE | 2021-05-13 14:46 | ED_ITS ---
HPI - Extremity Injury (Upper) General: Chief Complaint: Animal Bite Stated Complaint: DOG BITE Time Seen by Provider: 05/13/21 14:45 History of Present Illness: HPI narrative: 50-year-old male patient comes in for injury to the right hand. Patient was outside with his 2 dogs and 2 other dogs came up and started fighting with his dogs he went to break them up and he got injured by the 2 dogs. Patient has 2 lacerations to the right hand and 2 superficial injuries to the left hand. Otherwise patient has no other signs of significant abnormalities. Patient does not recall his tetanus. Patient does have a history of diabetes and neuropathy. MD complaint: injury to: hand Review of Systems General: Reports: 10 or more systems reviewed and unremarkable except in HPI and below Skin/Breast: Reports: other (dog bite) [facility] ED PFSH: Medical History Acute renal failure Amputated great toe Cellulitis and abscess of right lower extremity Cellulitis of leg, right CHF (congestive heart failure) Diabetes mellitus with polyneuropathy Diverticulosis Dyslipidemia Dyslipidemia Encounter for long-term use of opiate analgesic Essential (primary) hypertension Hallux rigidus, right foot History of amputation of left great toe History of amputation of right great toe Non-pressure chronic ulcer of other part of right foot with necrosis of bone Restless leg syndrome Shoulder pain Sleep apnea in adult Type 2 diabetes mellitus with other diabetic neurological complication Wound dehiscence, surgical Surgical History H/O hernia repair History of amputation of lesser toe of right foot Hx of amputation of lesser toe Left foot big toe and second toe 01/21/20 at [facility] [place]. Leal Status post PICC central line placement Family History Mother Cancer Denies family history of Diabetes CAD (coronary artery disease) Clotting disorder Dementia Hyperlipidemia Psychiatric illness Chronic kidney disease (CKD) Suicide Anesthesia complication Bleeding disorder Family history of premature coronary artery disease Lung disease Hypertension Stroke Social History Smoking and tobacco status: never smoked Second hand smoke exposure: No Alcohol intake: former Desire information about alcohol rehabilitation?: No Counseling given: No Adopted: No Caregiver/support person: Yes Lives independently: Yes Household members: spouse and significant other Housing: House Marital status: Life Partner Number of children: 0 Highest education level completed: High School Graduate service: Yes Current occupational status: retired Pets and animals: Yes History of recent travel: No Current gender identity: Male Yolande/Roman Catholic: None Agree to transfusion: Yes Financial difficulty paying for basics: Somewhat Hard Physical Exam Const: COMMON NORMALS: no acute distress and patient oriented x3 GENERAL APPEARANCE: cooperative HENMT: COMMON NORMALS: normocephalic and Normal external nose present HEAD & SCALP: normal to inspection and normocephalic NOSE: Normal external nose present MOUTH: Normal oral and palatal mucosa present Eye: GENERAL EYE: appearance normal, both eyes and all related structures Neck/C-Spine: COMMON NORMALS: full ROM Chest: COMMONS NORMALS: normal inspection of the chest Resp: COMMON NORMALS: normal respiratory effort EFFORT & INSPECTION: Yes able to speak in complete sentences Cardio: COMMON NORMALS: regular rate and regular rhythm RATE: regular rate RHYTHM: regular rhythm GI: COMMON NORMALS: non-tender Back/Pelvis: COMMON NORMALS: thoracic and lumbar spine normal to inspection Extremity: COMMON NORMALS: normal to inspection Neuro: COMMON NORMALS: patient oriented x3 and moves all extremities Psych: COMMON NORMALS: mental status grossly normal and cooperative Skin: NARRATIVE SKIN EXAM: 2 cm laceration to the palmar right hand, a 2 cm laceration is noted to the right radial wrist area. No sign of tendon or bone injury, no foreign body is noted in the wounds. Patient also has some superficial abrasions to the left dorsal hand and second digit. Procedures Laceration Laceration 1: Site: hand Side (If applicable): right Size (cm): 2 Description: linear Depth: simple, single layer Local Anesthetic: lidocaine 1% and with epi Amount of anesthesia used (mL): 3 Pre-repair: wound explored and irrigated extensively Skin layer closed with: nylon Size (cm): 4-0 Number of sutures: 3 Technique: simple, interrupted Laceration 2: Site: upper extremity Side (If applicable): right (wrist) Size (cm): 2 Description: linear Depth: simple, single layer Local Anesthetic: lidocaine 1% and with epi Amount of anesthesia used (mL): 3 Pre-repair: wound explored and irrigated extensively Skin layer closed with: nylon Size (cm): 4-0 Number of sutures: 3 Technique: simple, interrupted MDM - Extremity Injury (Upper) MDM Narrative: Medical decision making narrative: Patient comes in for injury to the right hand secondary to a dog bite. Patient sustained 2 to 2 cm lacerations to his hand. Differential diagnosis includes fracture, foreign body, need for prophylaxis tetanus and rabies vaccine. X-ray of the hand noted no fracture or foreign body. Tetanus shot was updated. Wounds were closed loosely with sutures. Patient be started on Augmentin for coverage of infection. We will start the rabies vaccination prophylaxis for patient. Patient reported understanding of care plan and need for follow-up or return. Discharge Plan Discharge Prescriptions: No Action hydrocodone-acetaminophen 10-325 mg tablet 1 tab PO .5 times a day 30 Days Qty: 150 RF: 0 hydrocodone-acetaminophen 10-325 mg tablet 1 tab PO .5 times a day 30 Days Qty: 150 RF: 0 ropinirole 1 mg tablet 1 mg PO DAILY@0900 30 Days Qty: 30 RF: 1 tramadol 50 mg tablet 100 mg PO QID PRN (Reason: Pain) 30 Days Qty: 240 RF: 0 Nucynta ER 100 mg tablet extended release 12 hr 100 mg PO BID 7 Days Qty: 14 RF: 0 (DME) ASO See Rx Instructions .Route .MEDSUPPLY Qty: 1 RF: 0 (DME) ASO See Rx Instructions .Route .MEDSUPPLY Qty: 1 RF: 0 nortriptyline 50 mg capsule 100 mg PO BEDTIME@2000 30 Days Qty: 60 RF: 1 insulin aspart U-100 [Novolog Flexpen U-100 Insulin] 100 unit/mL (3 mL) insulin pen 20 unit SUBCUT TID Qty: 15 RF: 2 (DME) Diabetic shoes with molded inserts See Rx Instructions .Route .MEDSUPPLY Qty: 1 RF: 0 (DME) pen needle, diabetic [TechLITE Pen Needle] 32 gauge x 1/4 needle See Rx Instructions .ROUTE .MEDSUPPLY Qty: 100 RF: 3 blood sugar diagnostic [OneTouch Verio test strips] Strip See Rx Instructions .ROUTE .COMPLEX Qty: 100 RF: 11 (DME) Right toe filler See Rx Instructions .Route .MEDSUPPLY Qty: 1 RF: 0 furosemide 20 mg tablet 20 - 40 mg PO DAILY Qty: 60 RF: 3 Victoza 2-Bjorn 0.6 mg/0.1 mL (18 mg/3 mL) pen injector 1.8 mg SUBCUT DAILY@0900 Qty: 6 RF: 2 rosuvastatin 10 mg tablet 10 mg PO BEDTIME@2000 Qty: 90 RF: 0 Levemir FlexTouch U-100 Insuln 100 unit/mL (3 mL) insulin pen See Rx Instructions .ROUTE .COMPLEX Qty: 15 RF: 2 metoprolol succinate 50 mg tablet extended release 24 hr 50 mg PO DAILY@0900 RF: 0 potassium chloride 10 mEq tablet extended release 30 meq PO Q3D RF: 0 aspirin [Adult Aspirin Regimen] 81 mg tablet,delayed release (DR/EC) 81 mg PO DAILY@0900 RF: 0 pantoprazole 40 mg tablet,delayed release (DR/EC) 40 mg PO DAILY@0900 RF: 0 lisinopril 40 mg tablet 40 mg PO DAILY@0900 RF: 0 pregabalin 150 mg capsule 150 mg PO .QOD RF: 0 Coding Level of Care Code ED Unit Trust Manager for Davina Whelan
--- NOTE | 2021-05-13 14:49 | XR_ITS ---
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 Mild osteoarthritic changes in the DIP and MIP joints o f the fingers. No fracture or other focal bone abnormality is identified. No soft tissue radiopaque foreign body is identified. XR/XR hand RT min 3V* [id number] IMPRESSION: No acute abnormality.
[2021-05-13] MEDS: amoxicillin-clav 875-125 mg Tablet 1 TAB PO (15:15)
[2021-05-13] MEDS: tetanus-dipt-pertussis 0.5 mL SDV IM (15:15)
[2021-05-13] MEDS: rabies vaccine 2.5 unit SDV IM (15:28)
== END 2021-05-13 17:48 | disposition home or self-care (01) ==
PROVIDERS: Emergency Provider Nurse Practitioner Family; PCP Family Medicine
DX: S61.411A Laceration without foreign body of right hand, initial encounter (principal); S61.511A Laceration without foreign body of right wrist, initial encounter; S60.512A Abrasion of left hand, initial encounter; S60.411A Abrasion of left index finger, initial encounter; E11.42 Type 2 diabetes mellitus with diabetic polyneuropathy; E11.49 Type 2 diabetes mellitus with other diabetic neurological complication; I11.0 Hypertensive heart disease with heart failure; I50.9 Heart failure, unspecified; E78.5 Hyperlipidemia, unspecified; Z79.4 Long term (current) use of insulin; Z79.82 Long term (current) use of aspirin; W54.0XXA Bitten by dog, initial encounter
CPT/HCPCS: 12002; 73130; 90375; 90471; 90675; 90715; 96372; 99283

== ENCOUNTER → 2021-06-13 10:35 | Outpatient (BNVA) | payer MEDICAID, SELFPAY | PROVIDERS: PCP Family Medicine; Visit Provider Family Medicine | DX: I10 Essential (primary) hypertension (principal); E78.5 Hyperlipidemia, unspecified; E11.49 Type 2 diabetes mellitus with other diabetic neurological complication | CPT/HCPCS: 80053; 80061; 83036; 85025 ==

== ENCOUNTER → 2021-06-23 13:38 | Outpatient (BNVA) | payer MEDICAID, SELFPAY | PROVIDERS: PCP Family Medicine; Visit Provider Anesthesiology | DX: G89.29 Other chronic pain (principal); M25.511 Pain in right shoulder; M25.512 Pain in left shoulder; M79.671 Pain in right foot; S98.112A Complete traumatic amputation of left great toe, initial encounter; X58.XXXA Exposure to other specified factors, initial encounter; G25.81 Restless legs syndrome; Z79.891 Long term (current) use of opiate analgesic | CPT/HCPCS: 99214 ==

== ENCOUNTER → 2021-09-02 12:52 | Outpatient (BNVA) | payer MEDICAID, SELFPAY | PROVIDERS: PCP Family Medicine; Visit Provider Anesthesiology | DX: G89.29 Other chronic pain (principal); M25.511 Pain in right shoulder; M25.512 Pain in left shoulder; G62.9 Polyneuropathy, unspecified; G25.81 Restless legs syndrome; Z79.891 Long term (current) use of opiate analgesic | CPT/HCPCS: 99214 ==

== ENCOUNTER → 2021-09-13 08:40 | Outpatient (BNVA) | payer MEDICAID, SELFPAY | PROVIDERS: PCP Family Medicine; Visit Provider Family Medicine | DX: E11.49 Type 2 diabetes mellitus with other diabetic neurological complication (principal); R35.1 Nocturia; I10 Essential (primary) hypertension; E78.5 Hyperlipidemia, unspecified | CPT/HCPCS: 80053; 83036; 84153 ==

== ENCOUNTER → 2021-10-20 14:52 | Outpatient (BNVA) | payer MEDICAID, SELFPAY | PROVIDERS: PCP Family Medicine; Visit Provider Surgery | DX: Z20.822 Contact with and (suspected) exposure to COVID-19 (principal) | CPT/HCPCS: 87635 ==

== ENCOUNTER 2021-10-25 07:26 | Day surgery (SDC) | payer MEDICAID, SELFPAY ==
[2021-10-24 11:02] VITALS: BMI 34.4
[2021-10-25] VITALS (12 sets, daily range): BP systolic 137–154; BP diastolic 70–87; PULSE 58–72; RESP 9–22; TEMP 36.2–36.8; O2SAT 91–98
--- NOTE | 2021-10-25 07:33 | NM_ITS ---
WS: [id number] SENTINEL NODE TECHNIQUE: Right upper back sentinel node injection CLINICAL INFORMATION: right upper back mass COMPARISON: None. PROCEDURE: The procedure including risks, benefits, and complications were discussed; the patient agr eed to proceed. Patient was prepped and draped in usual sterile fashion. Subsequently, 1% lidocaine p reservative-free was administered at the 12:00, 3:00, 6:00, and 9:00 o'clock positions for local anes thesia. Subsequently, 4 aliquots of filtered technetium 99m sulfur colloid was injected into the subc utaneous soft tissues. A total dose of 1.1 mCi was administered. Subsequently a single sentinel lymph node was localized in the anterolateral right upper neck. Patient tolerated the procedure well with no immediate complications. PA/PA sentinel node inject [id number] IMPRESSION: 1. Uncomplicated right upper back sentinel node injection with a total dose of 1.1 mCi. 2. Subsequently a single sentinel lymph node was localized in the anterolatera l right upper neck.
[2021-10-25] MEDS: sodium chloride 0.9% 1,000 ML 30 ML IV (10:02)
[2021-10-25] MEDS: acetaminophen 1,000 MG/100 ML PIGGYBACK 400 MG IV (10:03)
--- NOTE | 2021-10-25 11:58 | P.ANESASSM_ITS ---
Pre-Anesthetic Assessment Pre-Anesthetic Assessment: Height/Weight: Height 1.78 m Weight 108.862 kg Temp Pulse Resp BP Pulse Ox 97.7 F 72 18 144/76 97 10/25/21 07:53 10/25/21 07:53 10/25/21 07:53 10/25/21 07:53 10/25/21 07:53 Preop Diagnosis: Right upper back melanoma Proposed Procedure: Operation Date: 10/25/21 12:10 Proposed Procedures p Wide Loc Excision Right Upper Back Melanoma [id number] Z85.828(Right) - Blaine Briggs MD s Sentinal Lymph Node Biopsy(Right) - Blaine Briggs MD Was Beta Jeff taken within 24 hours: Yes Was Clonidine taken within 24 hours: N/A Last intake: Intake Last Liquid Date 10/24/21 Last Liquid Time 22:00 Last Solid Date 10/24/21 Last Solid Time 22:00 Social: Social History: Alcohol and No alcohol Exam: Pre-Anes Outpt Exam: alert, oriented x 3, clear to auscultation bilaterally and regular rate & rhythm Airway: Submandibular: WNL Cervical ROM: WNL MP: 1 Dentition: False Pulmonary: Pulmonary: Sleep apnea (Does not wear sleep apnea device) CV/HEM: CV/HEM: CHF and HTN Comments: DLD METs > 4, 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 : Comments: Hx of acute RF GI: GI: GERD Metabolic: Metabolic: DM Musc/skel: Musc/skel: None reported Neuropsych: Comments: RLS Anesthetic Plan: ASA status: 3 Anesthesia: Anesthesia Evaluation and General Risk of > 500 ml blood loss (7ml/kg in children): No Meds/Allergies Current Medications: Current Medications Generic Name Dose Route Start Last Admin Trade Name Freq PRN Reason Stop Dose Admin Sodium Chloride 1,000 mls @ 30 ml s/hr 10/25/21 07:30 10/25/21 10:02 Sodium Chloride 0.9% IV 10/26/21 07:29 30 mls/hr .Q24H ELISE Administration PFSH Anesthesia PFSH: Medical History Acute renal failure Amputated great toe Cellulitis and abscess of right lower extremity Cellulitis of leg, right CHF (congestive heart failure) Chronic pain in right foot Diabetes mellitus with polyneuropathy Diverticulosis Dyslipidemia Dyslipidemia Encounter for long-term use of opiate analgesic Essential (primary) hypertension Hallux rigidus, right foot History of amputation of left great toe History of amputation of right great toe History of malignant melanoma History of nonmelanoma skin cancer Non-pressure chronic ulcer of other part of right foot with necrosis of bone Restless leg syndrome Shoulder pain Sleep apnea in adult Type 2 diabetes mellitus with other diabetic neurological complication Wound dehiscence, surgical Surgical History H/O hernia repair History of amputation of lesser toe of right foot Hx of amputation of lesser toe Left foot big toe and second toe 01/21/20 at [facility] [place] Dr. Leal Status post PICC central line placement Family History Mother Cancer Other Dyslipidemia Denies family history of Diabetes CAD (coronary artery disease) Clotting disorder Dementia Hyperlipidemia Psychiatric illness Chronic kidney disease (CKD) Suicide Anesthesia complication Bleeding disorder Family history of premature coronary artery disease Lung disease Hypertension Stroke Social History Second hand smoke exposure: No Alcohol intake: former Desire information about alcohol rehabilitation?: No Counseling given: No Adopted: No Caregiver/support person: Yes Lives independently: Yes Household members: spouse and significant other Housing: House Marital status: Life Partner Number of children: 0 Highest education level completed: High School Graduate service: Yes Current occupational status: retired Pets and animals: Yes History of recent travel: No Current gender identity: Male Yolande/Congregational: None Agree to transfusion: Yes Financial difficulty paying for basics: Somewhat Hard Data Anesthesia Cardiac Studies: Echocardiogram Ultrasound 01/10/21
--- NOTE | 2021-10-25 12:14 | W.PM.OPSUD ---
Surgery/Procedure H&P Update DATE OF PROCEDURE: October 25, 2021 DATE H&P PERFORMED: 09/29/21 H&P UPDATE INFORMATION: I have reviewed H&P completed within last 30 days, I have examined patient prior to procedure and No changes to prior documentation PREOP DIAGNOSIS: Right upper back melanoma PRIMARY INDICATION FOR PROCEDURE: The same PLANNED PROCEDURE: Operation Date: 10/25/21 12:10 Proposed Procedures p Wide Loc Excision Right Upper Back Melanoma [id number] Z85.828(Right) - Blaine Briggs MD s Sentinal Lymph Node Biopsy(Right) - Blaine Briggs MD
[2021-10-25 12:29] LABS: Glucose Point of Care 156 mg/dL (70-110)
[2021-10-25] MEDS: lidocaine 2% INJ 20 mL INJECTION (14:16)
[2021-10-25] MEDS: isosulfan blue 10 mg/mL SDV 5mL 25 MG SUBCUT (14:24)
--- NOTE | 2021-10-25 14:27 | SUR.OPER ---
[address] hansen that he wants the sentinel lymph node in formalin
--- NOTE | 2021-10-25 15:28 | P.OP_ITS ---
Operative Report Date of procedure: October 25, 2021 Pre-op Diagnosis: Right upper back melanoma Post-op diagnosis: same Post-op Findings: Right-sided neck anterolateral lymph node neck level III Procedure Done: 1-Excision of right side neck sentinel lymph node biopsy 2-Wide local excision of upper back melanoma Implants: Small pieces of Surgicel at the right side of the neck 15 [place] round and drain of the back wound Specimens removed/disposition: Right side neck sentinel lymph node biopsy #1 in vivo 173 and ex vivo 3 Right back melanoma excision with short sutures superior and long sutures marked left lateral Surgeon: Blaine Briggs Poultry Service Technician: Batch Records Clerk Lorenzo Surgical techs Evaristo and West Circulating nurses Irma Georges and Ivonne Anesthesia: General (JOSE A Gabriel, CONTRACT[employer] Will Smart and and Mann) Estimated blood loss (mL): 30 IV fluids (mL): 1,600 Condition: stable Disposition: same day Procedure: In the nuclear medicine suite, technetium 99 was injected at the site of the upper midline lesion and it lit up at the right side of the neck anterolateral lymph node basin level III; 1. Uncomplicated upper back sentinel node injection with a total dose of 0.96 mCi. 2. 60 minutes post injection a single right right neck lymph node was localized and marked. Few hours later, the patient was taken to the operating room after marking the right side of the neck and upper back mass by myself in the holding area also there was distinct marking by the radiology department of the right side of the neck and after verification Dr. Pardo radiology, and general anesthesia was induced,Time-out was done verifying the patient's name/date of /planned procedure and destination after the procedure, all were in agreement. SCDs confirmed to be functioning, preoperative antibiotics administered per protocol, and beta jackie protocol was confirmed, appropriate positioning of the patient was done by me and the staff,then a hand-held gamma probe was used to identify the location of the hottest spot which appears to be of the right side of the neck.Patient was placed in supine position, then was turned to be left lateral position. Lymphazurin blue dye was injected at and around the upper midline lesion,this was massaged gently for 5 minutes,.patient was turned again to be in supine position .prep and drape of the right side of the neck was done under the usual sterile technique, incision was made over the right side of the level III, splitting the sternocleidomastoid till reaching the lymph node basin the probe was placed in contact with the lymphatic tissue were excised in its entirety with surrounding fat. There was no specific distinct lymph node palpable. Dissection of the lymphatics were done and medium size clips were applied. No additional hot spots were detected, or blue lymphatics were identified. No clinically abnormal nodes were palpated.No additional hot spots were detected, or blue lymphatics were identified.procedure was terminated at this point. Copious and thorough irrigation was achieved,Smaller pieces of Surgicel were applied for hemostasis, followed by approximation of the muscle splitting in 2-0 Vicryl then closure of the platysma using 3-0 Vicryl then 4-0 Monocryl for the skin followed by Dermabond. Followed by dry pressure dressing. Brody counts as follows [place] lymph node #1 in vivo 173,ex vivo 3 The above lymph node with the surrounding fat pad was passed to the circulating nurse for permanent pathology Attention now was deviated towards the upper back lesion, where the patient was then repositioned were the patient was placed in left lateral position all press ure points were padded, in addition to left axillary roll. prep and drape of upper back was done under the usual sterile technique. Skin incision was made that encompassed the previous biopsy site with at least 2 cm margin and the previous biopsy scar passed in a generous elliptical/horizontal direction, the whole skin and subcutaneous layer including the previous biopsy site was marked by short suture superior and long suture left lateral and passed to the circulating nurse for permanent pathology. At this point I elected to raise flaps superiorly and inferiorly including skin and subcutaneous in all the way to the fascial layer superior and inferior, to allow tension-free closure of the wound. Couple of [id number] sutures were applied for hemostasis as well as Bovie cauterization.Copious and thorough irrigation was done. I elected to leave a drain at the wound bed 15 [place] and was brought out from a separate stab towards the right lateral portion and secured to the skin using 3- 0 and 2-0 nylon The wound was then closed using deep subdermal 0 Vicryl , followed by continuous 0 Prolene(baseball style) followed by triple antibiotic ointment and pressure dressing. Double counts of sponges, needles and instruments were completed at the end of the procedure Please note the 2 surgical procedures,different surgical instruments and settings were used and every single set the count was completed at the end of the procedure. I was present for the whole entire procedure Patient was then extubated and taken to the recovery room in stable condition
[2021-10-25] MEDS: fentaNYL 50 mcg/mL INJ 2mL IVP (16:06)
--- NOTE | 2021-10-26 01:14 | ANE.PACU2 ---
Inpatient post-anesthesia follow up: Airway intact: Yes Vital signs: Temperature 97.8 F Pulse Rate 70 Respiratory Rate 18 Blood Pressure 154/80 Pulse Oximetry 96 Oxygen Delivery Me thod Room Air Oxygen Flow Rate 6 Fraction of Inspir ed Oxygen Hydration adequate: Yes Nausea and vomiting: No Pain level: 1 Mental status: Baseline
== END 2021-10-25 17:19 | disposition home or self-care (01) ==
PROVIDERS: PCP Family Medicine; Visit Provider Surgery
PROC: (CPT 11402; principal; 2021-10-25 12:00)
PROC: (CPT 11402; 2021-10-25 12:00)
DX: C43.59 Malignant melanoma of other part of trunk (principal); Z85.828 Personal history of other malignant neoplasm of skin; Z79.82 Long term (current) use of aspirin; E11.42 Type 2 diabetes mellitus with diabetic polyneuropathy; Z79.4 Long term (current) use of insulin; I11.0 Hypertensive heart disease with heart failure; I50.9 Heart failure, unspecified; E78.5 Hyperlipidemia, unspecified; G47.30 Sleep apnea, unspecified
CPT/HCPCS: 11402; 12031; 38500; 36416; 38792; 82962; 88305; 88307; 88342; 96367; A9541; J0330; J0690; J1100; J2001; J2250; J2405; J2704; J3010; J3490; J7030; Q9968

== ENCOUNTER → 2021-11-01 14:04 | Outpatient (BNVA) | payer MEDICAID, SELFPAY | PROVIDERS: PCP Family Medicine; Visit Provider Anesthesiology | DX: G89.29 Other chronic pain (principal); M25.511 Pain in right shoulder; M25.512 Pain in left shoulder; M47.816 Spondylosis without myelopathy or radiculopathy, lumbar region; G25.81 Restless legs syndrome; M79.671 Pain in right foot; M79.672 Pain in left foot; Z79.891 Long term (current) use of opiate analgesic | CPT/HCPCS: 99214 ==

== ENCOUNTER 2021-11-02 12:57 | Outpatient (CLI) | payer MEDICAID, SELFPAY | END 2021-11-02 12:58 | disposition home or self-care (01) | LOC: WOUND 12:58 | PROVIDERS: PCP Family Medicine; Visit Provider Nurse Practitioner Family | DX: E11.621 Type 2 diabetes mellitus with foot ulcer (principal); L97.511 Non-pressure chronic ulcer of other part of right foot limited to breakdown of skin | CPT/HCPCS: 11042; 99213 ==

== ENCOUNTER 2021-11-09 13:34 | Outpatient (CLI) | payer MEDICAID, SELFPAY | END 2021-11-09 13:35 | disposition home or self-care (01) | LOC: WOUND 13:37 | PROVIDERS: PCP Family Medicine; Visit Provider Thoracic Surgery (Cardiothoracic Vascular Surgery) | DX: I96 Gangrene, not elsewhere classified (principal); E11.621 Type 2 diabetes mellitus with foot ulcer; L97.511 Non-pressure chronic ulcer of other part of right foot limited to breakdown of skin | CPT/HCPCS: 97597 ==

== ENCOUNTER 2021-11-16 09:52 | Outpatient (CLI) | payer MEDICAID, SELFPAY | END 2021-11-16 09:53 | disposition home or self-care (01) | LOC: WOUND 09:53 | PROVIDERS: PCP Family Medicine; Visit Provider Thoracic Surgery (Cardiothoracic Vascular Surgery) | DX: I96 Gangrene, not elsewhere classified (principal); E11.621 Type 2 diabetes mellitus with foot ulcer; L97.511 Non-pressure chronic ulcer of other part of right foot limited to breakdown of skin | CPT/HCPCS: 97597 ==

== ENCOUNTER 2021-11-23 08:59 | Outpatient (CLI) | payer MEDICAID, SELFPAY | END 2021-11-23 09:00 | disposition home or self-care (01) | LOC: WOUND 09:00 | PROVIDERS: PCP Family Medicine; Visit Provider Thoracic Surgery (Cardiothoracic Vascular Surgery) | DX: Z09 Encounter for follow-up examination after completed treatment for conditions other than malignant neoplasm (principal); E11.621 Type 2 diabetes mellitus with foot ulcer; L97.511 Non-pressure chronic ulcer of other part of right foot limited to breakdown of skin | CPT/HCPCS: 99212 ==

== ENCOUNTER 2021-12-06 | Outpatient (CLI) | payer MEDICAID, SELFPAY | END 2021-12-06 00:01 | disposition home or self-care (01) | LOC: ONCMED 02-22 13:59 | PROVIDERS: PCP Family Medicine; Visit Provider Internal Medicine Hematology & Oncology | DX: E11.49 Type 2 diabetes mellitus with other diabetic neurological complication (principal); E78.5 Hyperlipidemia, unspecified; I10 Essential (primary) hypertension; S91.331A Puncture wound without foreign body, right foot, initial encounter; Z79.4 Long term (current) use of insulin; Z79.899 Other long term (current) drug therapy | CPT/HCPCS: 80053; 83036 ==

== ENCOUNTER → 2022-03-02 13:29 | Outpatient (BNVA) | payer MEDICAID, SELFPAY | PROVIDERS: PCP Family Medicine; Visit Provider Podiatrist Foot & Ankle Surgery | DX: E11.49 Type 2 diabetes mellitus with other diabetic neurological complication (principal); Z89.412 Acquired absence of left great toe; Z89.411 Acquired absence of right great toe; X58.XXXD Exposure to other specified factors, subsequent encounter; Z48.89 Encounter for other specified surgical aftercare; Z98.890 Other specified postprocedural states | CPT/HCPCS: 99214 ==

== ENCOUNTER → 2022-03-17 10:12 | Outpatient (BNVA) | payer MEDICAID, SELFPAY | PROVIDERS: PCP Family Medicine; Visit Provider Family Medicine | DX: E11.49 Type 2 diabetes mellitus with other diabetic neurological complication (principal); F32.1 Major depressive disorder, single episode, moderate; I10 Essential (primary) hypertension; E78.5 Hyperlipidemia, unspecified | CPT/HCPCS: 80053; 82043; 83036 ==

== ENCOUNTER → 2022-05-01 14:23 | Outpatient (BNVA) | payer MEDICAID, SELFPAY | PROVIDERS: PCP Family Medicine; Visit Provider Specialist | DX: M25.511 Pain in right shoulder (principal); M25.512 Pain in left shoulder | CPT/HCPCS: 73030; 99214 ==

== ENCOUNTER 2022-05-25 22:37 | Emergency (ER) | payer MEDICAID, SELFPAY ==
--- NOTE | 2022-05-25 22:45 | W.ED.EXTPRO ---
HPI - Extremity Problem General: Chief complaint: Wound/Laceration Stated complaint: Left toes swollen/pain Time Seen by Provider: 05/25/22 22:43 History of Present Illness: Mr. Rosales is a 51-year-old gentleman with significant past medical history of diabetes and prior toe amputations presenting for concern over foot infection. He reports onset of symptoms atraumatic approximately 2 weeks ago initially with mild discomfort in his foot however over the past few days he has now had discomfort that radiates up with to the leg. He reports that this is similar to prior episodes of infection. Subjective fevers and chills noted. Denies other signs of systemic illness. Overall course of symptoms has worsened. Intensity is moderate. No other specific changes in health, exacerbating, or alleviating factors identified. Onset (ago): week(s) Pain Consistency: constant Radiation: proximal Associated symptoms: Reports other Context: other Review of Systems General: Reports: 10 or more systems reviewed and unremarkable except in HPI and below PFSH ED PFSH: Medical History Acute renal failure Amputated great toe Cellulitis and abscess of right lower extremity Cellulitis of leg, right CHF (congestive heart failure) Chronic pain in right foot Diabetes mellitus with polyneuropathy Diverticulosis Dyslipidemia Dyslipidemia Encounter for long-term use of opiate analgesic Essential (primary) hypertension Hallux rigidus, right foot History of amputation of left great toe History of amputation of right great toe History of malignant melanoma History of nonmelanoma skin cancer Non-pressure chronic ulcer of other part of right foot with necrosis of bone Restless leg syndrome Shoulder pain Sleep apnea in adult Type 2 diabetes mellitus with other diabetic neurological complication Wound dehiscence, surgical Surgical History H/O hernia repair History of amputation of lesser toe of right foot History of ankle surgery History of colonoscopy 2018 History of inguinal hernia repair, bilateral 1970,1977 Hx of amputation of lesser toe [place] foot [place] [facility] [place] Status post PICC central line placement Family History Mother Cancer Other Dyslipidemia Denies family history of Diabetes CAD (coronary artery disease) Clotting disorder Dementia Hyperlipidemia Psychiatric illness Chronic kidney disease (CKD) Suicide Anesthesia complication Bleeding disorder Family history of premature coronary artery disease Lung disease Hypertension Stroke Social History Smoking and tobacco status: current every day smoker Second hand smoke exposure: No Alcohol intake: former Desire information about alcohol rehabilitation?: No Counseling given: No Adopted: No Caregiver/support person: Yes Lives independently: Yes Household members: spouse and significant other Housing: House Marital status: Life Partner Number of children: 0 Highest education level completed: High School Graduate service: Yes Current occupational status: retired Pets and animals: Yes History of recent travel: No Current gender identity: Male Yolande/Mandaen: None Agree to transfusion: Yes Financial difficulty paying for basics: Somewhat Hard Physical Exam Const: COMMON NORMALS: alert GENERAL APPEARANCE: cooperative and well developed HENMT: COMMON NORMALS: normocephalic and atraumatic HEAD & SCALP: normocephalic and atraumatic THROAT: posterior oropharynx normal Eye: COMMON NORMALS: conjunctivae normal CONJUNCTIVA: Yes conjunctivae normal SCLERA: sclerae normal Neck/C-Spine: COMMON NORMALS: supple GENERAL: Yes trachea midline Resp: COMMON NORMALS: normal respiratory effort EFFORT & INSPECTION: Yes able to speak in complete sentences Cardio: COMMON NORMALS: regular rate and regular rhythm RATE: regular rate RHYTHM: regular rhythm GI: COMMON NORMALS: Soft to palpation PALPATION: Yes Soft to palpation and No Tenderness to palpation present (GI) PERCUSSION: normal to percussion Extremity: NARRATIVE EXTREMITY EXAM: Swelling and tenderness palpation noted. Erythema also present. No palpable fluid collection or erosion/tunneling. CMS intact. Prior amputations. GENERAL: Yes normal exam except as noted and No edema Neuro: COMMON NORMALS: moves all extremities SENSORIUM/ORIENTATION: Yes alert and No Orientation impaired Psych: COMMON NORMALS: mental status grossly normal and Normal thought process present THOUGHT PROCESS: Normal thought process present Course Vital Signs: Vital signs: Vital Signs Temperature 99.4 F 05/25/22 22:52 Pulse Rate 75 05/26/22 01:40 Respiratory Rate 16 05/26/22 01:40 Blood Pressure 130/71 05/26/22 01:40 Pulse Oximetry 96 05/26/22 01:40 MDM - Extremity (Nontraumatic) Medical Decision Making 51-year-old gentleman with history of complicated diabetes with prior foot infections requiring amputation. Patient reports subjective fevers however afebrile here and vitally stable. Nontoxic in appearance. Leukocytosis with mild elevation in inflammatory markers noted. Prior cultures reviewed. X-rays without acute fracture identified. I offered the patient admission for IV antibiotics versus trial of therapy at home based on prior cultures with strict return precautions. Patient prefers trial of treatment at home. He reports tolerance of Bactrim in the past. Satisfactory for outpatient management and patient verbalizes agreement with plan for close follow-up with podiatry and strict return precautions. Medical Records I reviewed the patient's medical records. Lab Data I reviewed the patient's lab results. : 05/25/22 23:26 05/25/22 23: Radiology Impressions Foot X-Ray 05/25/22: IMPRESSION: No definite acute skeletal finding. Laboratory Results WBC 14.0 10^3/uL (4.0-10.0) H 05/25/22 23: RBC 4.91 10^6/uL (4.1-5.3) 05/25/22 23: Hgb 13.1 g/dL (11.7-16.6) 05/25/22 23: Hct 40.5 % (42.0-52.0) L 05/25/22 23: MCV 82.5 fl (80-94) 05/25/22 23: MCH 26.7 pg (28.0-34.0) L 05/25/22 23: MCHC 32.3 g/dL (30.0-36.0) 05/25/22 23: RDW 14.5 % (12.1-15.1) 05/25/22 23: Plt Count 272 10^3/cmm (130-400) 05/25/22 23: MPV 10.6 fL (7.4-10.4) H 05/25/22 23: Neut % (Auto) 83.2 % 05/25/22: Lymph % (Auto) 9.3 % 05/25/22: Imperial % (Auto) 5.5 % 05/25/22 23: Eos % (Auto) 1.1 % 05/25/22: Baso % (Auto) 0.5 % 05/25/22 23:26 Neut # (Auto) 11.68 10^3/uL (1.8-7.7) H 05/25/22 23:26 Lymph # (Auto) 1.3 10^3/uL (0.8-4.8) 05/25/22 23:26 Imperial # (Auto) 0.8 10^3/uL (0.2-0.9) 05/25/22 23:26 Eos # (Auto) 0.2 10^3/uL (0.0-0.8) 05/25/22 23:26 Baso # (Auto) 0.1 10^3/uL (0.0-0.1) 05/25/22 23: Nucleated RBC % (auto) 0 % 05/25/22 23: Nucleated RBCs # 0.0 /100WBC 05/25/22 23: ESR 11 mm/hr (0-10) H 05/25/22 23:26 Sodium 135 mmol/L (136-145) L 05/25/22 23:26 Potassium 4.6 mmol/L (3.5-5.1) 05/25/22 23:26 Chloride 98 mmol/L (98-107) 05/25/22 23:26 Carbon Dioxide 27 mmol/L (22-29) 05/25/22 23:26 Anion Gap 14.6 (5-19) 05/25/22 23:26 BUN 17 mg/dL (6-20) 05/25/22 23:26 Creatinine 1.4 mg/dL (0.7-1.2) H 05/25/22 23:26 GFR Calculation 53.0 mL/min (90-130) L 05/25/22 23:26 Glucose 294 mg/dL (65-115) H 05/25/22 23:26 Calculated Osmolality 292 mOsm/kg (285-295) 05/25/22 23:26 Calcium 8.5 mg/dL (8.5-10.5) 05/25/22 23:26 Total Bilirubin 0.3 mg/dL (0.15-1.2) 05/25/22 23:26 AST 11 U/L (0-40) 05/25/22 23:26 ALT 13 U/L (0-41) 05/25/22 23:26 Alkaline Phosphatase 100 IU/L (40-130) 05/25/22 23:26 C-Reactive Protein 33.8 mg/L (0.0-4.9) H 05/25/22 23:26 Total Protein 7.2 g/dL (6.6-8.7) 05/25/22 23:26 Albumin 3.9 g/dL (3.5-5.2) 05/25/22 23:26 Globulin 3.3 g/dL (1.3-4.6) 05/25/22 23:26 Discharge Plan Discharge Patient Disposition: Home Clinical Impression: Diabetic foot infection Condition: Stable Prescriptions: No Action (DME) ASO See Rx Instructions .Route .MEDSUPPLY Qty: 1 0RF Rx Instructions: As directed hydrocodone-acetaminophen 10-325 mg tablet 1 tab PO .5 times a day 30 Days Qty: 150 0RF Rx Instructions: fill on or after 11/04/21 hydrocodone-acetaminophen 10-325 mg tablet 1 tab PO .5 times a day 30 Days Qty: 150 0RF Rx Instructions: fill on or after 12/04/21 Levemir FlexTouch U-100 Insuln 100 unit/mL (3 mL) insulin pen See Rx Instructions .ROUTE .COMPLEX Qty: 45 1RF Dose Instruction: INJECT 42 UNITS SUBCUTANEOUSLY EVERY DAY AT 9AM Rx Instructions: INJECT 55 UNITS SUBCUTANEOUSLY EVERY DAY AT 9AM insulin aspart U-100 [Novolog Flexpen U-100 Insulin] 100 unit/mL (3 mL) insulin pen 20 unit SUBCUT TID Qty: 15 2RF Rx Instructions: Please dispense needle tips as well (DME) blood-glucose meter [OneTouch Verio Flex meter] Misc See Rx Instructions .Route Qty: 1 0RF Rx Instructions: As directed OneTouch Verio test strips Strip See Rx Instructions .ROUTE .COMPLEX Qty: 100 11RF Dose Instruction: USE TO TEST THREE TIMES DAILY Rx Instructions: USE TO TEST THREE TIMES DAILY (DME) Diabetic Shoes See Rx Instructions .Route .MEDSUPPLY Qty: 1 0RF Rx Instructions: Diabetic shoes with inserts with toe lift (DME) Cam Boot to the left See Rx Instructions .Route .MEDSUPPLY Qty: 1 0RF Rx Instructions: As directed (DME) Diabetic shoes with molded inserts See Rx Instructions .Route .MEDSUPPLY Qty: 1 0RF Rx Instructions: As directed (DME) Right toe filler See Rx Instructions .Route .MEDSUPPLY Qty: 1 0RF Rx Instructions: As directed Victoza 3-Bjorn 0.6 mg/0.1 mL (18 mg/3 mL) pen injector 1.8 mg SUBCUT QAM Qty: 9 2RF potassium chloride 10 mEq tablet extended release See Rx Instructions .ROUTE .COMPLEX Qty: 90 2RF Dose Instruction: TAKE 1-2 TABLETS BY MOUTH EVERY THREE DAYS Rx Instructions: TAKE 1-2 TABLETS BY MOUTH EVERY THREE DAYS furosemide 20 mg tablet 20 - 40 mg PO DAILY PRN (Reason: edema) Qty: 30 0RF Rx Instructions: MUST have follow-up for further refills lisinopril 40 mg tablet See Rx Instructions .ROUTE .COMPLEX Qty: 30 5RF Dose Instruction: TAKE 1 TABLET BY MOUTH EVERY DAY AT 9AM Rx Instructions: TAKE 1 TABLET BY MOUTH EVERY DAY AT 9AM metoprolol succinate 50 mg tablet extended release 24 hr 50 mg PO DAILY@0900 Qty: 90 3RF rosuvastatin 10 mg tablet See Rx Instructions .ROUTE .COMPLEX Qty: 90 1RF Dose Instruction: TAKE 1 TABLET BY MOUTH EVERY DAY AT BEDTIME (8PM) Rx Instructions: TAKE 1 TABLET BY MOUTH EVERY DAY AT BEDTIME (8PM) aspirin 81 mg tablet,delayed release (DR/EC) See Rx Instructions .ROUTE .COMPLEX Qty: 90 1RF Hold Instructions: Resume on 10/29/21. Dose Instruction: TAKE 1 TABLET BY MOUTH EVERY DAY AT 9AM Rx Instructions: TAKE 1 TABLET BY MOUTH EVERY DAY AT 9AM (DME) pen needle, diabetic [TechLITE Pen Needle] 32 gauge x 1/4 needle See Rx Instructions .ROUTE .COMPLEX Qty: 100 3RF Dose Instruction: USE DIRECTED UP TO FIVE TIMES PER DAY Rx Instructions: USE DIRECTED UP TO FIVE TIMES PER DAY ropinirole 1 mg tablet See Rx Instructions .ROUTE .COMPLEX Qty: 30 1RF Dose Instruction: TAKE 1 TABLET BY MOUTH EVERY DAY AT 9AM FOR 30 DAYS FOR PAIN Rx Instructions: TAKE 1 TABLET BY MOUTH EVERY DAY AT 9AM FOR 30 DAYS FOR PAIN nortriptyline 50 mg capsule See Rx Instructions .ROUTE .COMPLEX Qty: 60 1RF Dose Instruction: TAKE 2 CAPSULES BY MOUTH AT 8:00PM Rx Instructions: TAKE 2 CAPSULES BY MOUTH AT 8:00PM pantoprazole 40 mg tablet,delayed release (DR/EC) See Rx Instructions .ROUTE .COMPLEX Qty: 30 2RF Dose Instruction: TAKE 1 TABLET BY MOUTH EVERY DAY AT 9AM Rx Instructions: TAKE 1 TABLET BY MOUTH EVERY DAY AT 9AM Discharge Orders: Discharge ED (Routine); Ordered 05/26/22 Ordered By: Dario Norman Referrals: Cindy Hsu DO [Primary Care Provider] - Discharge Diet: Usual diet Discharge Activity: Increase activity as tolerated Activity Restrictions/Additional Instructions: Thank you for visiting the emergency department. You were seen and evaluated for concern for foot infection. Given your history I do believe that you have additional infection. After discussion we will trial outpatient antibiotics. I will message case management to see if we can get you in with Dr. Cali sooner than your scheduled appointment. Please watch closely for signs of worsening and return immediately if you do worsen. Please ensure that you are staying hydrated. Please watch out for side effects related to Bactrim including rashes, skin peeling, decreased urine output, or anything else that you are concerned about and feel needs emergency department evaluation. Coding Level of Care Code ED Jira Developer for Davina Whelan
[2022-05-25 22:52] VITALS: BP 137/74; PULSE 89; RESP 16; TEMP 37.4; O2SAT 98
--- NOTE | 2022-05-25 23:11 | XRR_ITS ---
PROCEDURE INFORMATION: Exam: XR Left Foot Exam date and time: 05/25/2022 11:23 PM Age: 51 years old Clinical indication: Pain; Toes; Left; Prior surgery; Surgery type: Amputation; Patient HX: Diabetic sore to plantar side of 2nd/3rd digit. ; Additional info: Toe swelling, HX amputations TECHNIQUE: Imaging protocol: Radiologic exam of the Left foot. Views: 3 or more views. COMPARISON: No relevant prior studies available. FINDINGS: Bones/joints: Disarticulation of the 1st and 2nd digits at the level of the distal metatarsals. Amputation of the 5th digit at the level of the mid metatarsal. 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 No acute fracture or acute bone destruction identified. Soft tissues: Mild soft tissue swelling of the distal foot. XR/XR foot LT min 3V* [id number] IMPRESSION: No definite acute skeletal finding.
[2022-05-25 23:34] LABS: Basophils # 0.1 10^3/uL (0.0-0.1); Basophils % 0.5 %; Eosinophils # 0.2 10^3/uL (0.0-0.8); Eosinophils % 1.1 %; Hematocrit 40.5 % (42.0-52.0); Hemoglobin 13.1 g/dL (11.7-16.6); Lymphocytes # 1.3 10^3/uL (0.8-4.8); Lymphocytes % 9.3 %; Mean Corpuscular HGB Conc 32.3 g/dL (30.0-36.0); Mean Corpuscular Hemoglobin 26.7 pg (28.0-34.0); Mean Corpuscular Volume 82.5 fl (80-94); Mean Platelet Volume 10.6 fL (7.4-10.4); Monocytes # 0.8 10^3/uL (0.2-0.9); Monocytes % 5.5 %; Neutrophils # 11.68 10^3/uL (1.8-7.7); Neutrophils % 83.2 %; Nucleated Red Blood Cells % 0 %; Platelet Count 272 10^3/cmm (130-400); Red Blood Count 4.91 10^6/uL (4.1-5.3); Red Cell Distribution Width 14.5 % (12.1-15.1)
[2022-05-25 23:59] LABS: Alanine Aminotransferase 13 U/L (0-41); Albumin Level 3.9 g/dL (3.5-5.2); Alkaline Phosphatase 100 IU/L (40-130); Anion Gap 14.6 (5-19); Aspartate Amino Transferase 11 U/L (0-40); Blood Urea Nitrogen 17 mg/dL (6-20); C Reactive Protein 33.8 mg/L (0.0-4.9); Calcium 8.5 mg/dL (8.5-10.5); Carbon Dioxide 27 mmol/L (22-29); Chloride 98 mmol/L (98-107); Globulin 3.3 g/dL (1.3-4.6); Glucose 294 mg/dL (65-115); Osmolality Calculated 292 mOsm/kg (285-295); Potassium 4.6 mmol/L (3.5-5.1); Sodium 135 mmol/L (136-145); Total Bilirubin 0.3 mg/dL (0.15-1.2); Total Protein 7.2 g/dL (6.6-8.7)
[2022-05-26 00:13] LABS: Erythrocyte Sedimentation Rate 11 mm/hr (0-10)
[2022-05-26] MEDS: sulfamethoxazole-trimeth DS 160-800 mg Tablet 1 TAB PO (01:22)
[2022-05-26 01:40] VITALS: BP 130/71; PULSE 75; RESP 16; O2SAT 96
--- NOTE | 2022-05-26 08:10 | DCPLANNER ---
Addendum entered by Anuradha Flood 06/06/22 12:28: Patient had a follow up appointment scheduled for 05.30.22 with ortho - patient did attend appointment. Addendum entered by Anuradha Flood 05/26/22 15:24: Patient has an appointment scheduled for Monday, May 30, 2022 a 10:[address] Cali at ortho. Clinic will call patient with appointment information. Original Note: consulting manager had message to schedule a follow up appointment for patient with ortho. Patient has an appointment scheduled for 06.05.22, physician wanting to know if appointment could be rescheduled for an earlier date. consulting manager sent patients information and the request to reschedule appointment to an earlier date to the front office staff at ortho. Patients information will be printed and reviewed. Clinic will call patient with appointment information.
== END 2022-05-26 01:43 | disposition home or self-care (01) ==
PROVIDERS: Emergency Provider Emergency Medicine; PCP Family Medicine
DX: L08.89 Other specified local infections of the skin and subcutaneous tissue (principal); E11.9 Type 2 diabetes mellitus without complications; I11.0 Hypertensive heart disease with heart failure; I50.9 Heart failure, unspecified; E78.5 Hyperlipidemia, unspecified; F17.210 Nicotine dependence, cigarettes, uncomplicated
CPT/HCPCS: 36415; 73630; 80053; 85025; 85651; 86140; 87040; 99284

== ENCOUNTER → 2022-05-30 09:41 | Outpatient (BNVA) | payer MEDICAID, SELFPAY | PROVIDERS: PCP Family Medicine; Visit Provider Podiatrist Foot & Ankle Surgery | DX: E11.621 Type 2 diabetes mellitus with foot ulcer (principal); Z89.419 Acquired absence of unspecified great toe; Z89.429 Acquired absence of other toe(s), unspecified side; Z79.4 Long term (current) use of insulin; L08.9 Local infection of the skin and subcutaneous tissue, unspecified; E11.49 Type 2 diabetes mellitus with other diabetic neurological complication; L97.522 Non-pressure chronic ulcer of other part of left foot with fat layer exposed | CPT/HCPCS: 11042 ==

== ENCOUNTER → 2022-05-30 10:22 | Outpatient (BNVA) | payer MEDICAID, SELFPAY | PROVIDERS: PCP Family Medicine; Visit Provider Podiatrist Foot & Ankle Surgery | DX: S91.302A Unspecified open wound, left foot, initial encounter (principal) | CPT/HCPCS: 73630 ==

== ENCOUNTER 2022-05-30 10:47 | Outpatient (CLI) | payer MEDICAID, SELFPAY | END 2022-05-30 10:48 | disposition home or self-care (01) | LOC: SPT 10:48 | PROVIDERS: PCP Family Medicine; Visit Provider Podiatrist Foot & Ankle Surgery | DX: Z46.89 Encounter for fitting and adjustment of other specified devices (principal); L08.9 Local infection of the skin and subcutaneous tissue, unspecified | CPT/HCPCS: 97760; L4361 ==

== ENCOUNTER → 2022-06-06 08:56 | Outpatient (BNVA) | payer MEDICAID, SELFPAY | PROVIDERS: PCP Family Medicine; Visit Provider Podiatrist Foot & Ankle Surgery | DX: E11.621 Type 2 diabetes mellitus with foot ulcer (principal); L08.9 Local infection of the skin and subcutaneous tissue, unspecified; E11.49 Type 2 diabetes mellitus with other diabetic neurological complication; Z89.411 Acquired absence of right great toe; Z79.4 Long term (current) use of insulin; L97.522 Non-pressure chronic ulcer of other part of left foot with fat layer exposed | CPT/HCPCS: 73630; 99213; 99214 ==

== ENCOUNTER 2022-06-22 13:23 | Outpatient (CLI) | payer MEDICAID, SELFPAY ==
--- NOTE | 2022-06-22 13:45 | MR_ITS ---
WS: [id number] MRI LEFT SHOULDER HISTORY: pain COMPARISON: 05/01/2020 TECHNIQUE: Multiplanar sequences of the shoulder joint are submitted. Mild AC joint narrowing with hypertrophic osteophytes and a small amount of increased fluid along the AC ligament. Distal undersurface acromial osteophyte measures 4 mm. Mild contact and subacromial imp ingement upon the supraspinatus. Small amount of fluid in the subacromial and subdeltoid bursa. No os acromion. Biceps tendon remains in normal position. Mildly high riding humeral head. No significant atrophy or edema within the rotator cuff muscles. The re is a very small amount of increased T2 signal in the distal supraspinatus at the site of the acrom ial impingement. Suspicious for very tiny bursal surface tear of the supraspinatus at the site of the subacromial impingement. No additional signal abnormalities other than mild tendinopathy in the dist al subscapularis tendon. Seen best on the axial images there is an abnormal configuration of the posterior humeral head. There is flattening along the posterior medial humeral head which may be from an old injury and fracture. This is closely associated with the abnormal signal in the subscapularis tendon. 5.4 mm possible loos e body between the humeral head and the subscapularis tendon. May be a bone fragment from the prior i njury. MR/MR shoulder LT wo con* [id number] IMPRESSION: 1. Mild AC joint arthritis. 2. Mild subacromial impingement secondary to a 4 mm osteophyte. Associated jose j y tiny bursal surface tear of the supraspinatus tendon. 3. Very small subacromial and subdeltoid bursal distention. 4. Flattening and abnormal configuration of the posterior humeral head close t o the subscapularis insertion site. Suspect this is probably from old fracture. 5.4 mm low signal loose body or bone fragment between the subscapularis tendo n and the humeral head.
== END 2022-06-22 13:24 | disposition home or self-care (01) ==
LOC: RAD 13:24
PROVIDERS: PCP Family Medicine; Visit Provider Specialist
DX: M75.42 Impingement syndrome of left shoulder (principal); M19.012 Primary osteoarthritis, left shoulder; M25.512 Pain in left shoulder
CPT/HCPCS: 73221

== ENCOUNTER → 2022-06-28 11:59 | Outpatient (BNVA) | payer MEDICAID, SELFPAY | PROVIDERS: PCP Family Medicine; Visit Provider Podiatrist Foot & Ankle Surgery | DX: E11.621 Type 2 diabetes mellitus with foot ulcer (principal); L97.523 Non-pressure chronic ulcer of other part of left foot with necrosis of muscle; E11.49 Type 2 diabetes mellitus with other diabetic neurological complication; Z89.412 Acquired absence of left great toe; Z89.422 Acquired absence of other left toe(s); Z79.4 Long term (current) use of insulin | CPT/HCPCS: 11043; 73630 ==

== ENCOUNTER 2022-06-28 13:25 | Outpatient (CLI) | payer MEDICAID, SELFPAY | END 2022-06-28 13:26 | disposition home or self-care (01) | LOC: SPT 13:26 | PROVIDERS: PCP Family Medicine; Visit Provider Podiatrist Foot & Ankle Surgery | DX: L97.522 Non-pressure chronic ulcer of other part of left foot with fat layer exposed (principal) | CPT/HCPCS: 87070; 87075; 87077; 87205; 97760; L4361 ==

== ENCOUNTER → 2022-07-05 09:34 | Outpatient (BNVA) | payer MEDICAID, SELFPAY | PROVIDERS: PCP Family Medicine; Visit Provider Podiatrist Foot & Ankle Surgery | DX: E11.621 Type 2 diabetes mellitus with foot ulcer (principal); L97.525 Non-pressure chronic ulcer of other part of left foot with muscle involvement without evidence of necrosis; Z89.419 Acquired absence of unspecified great toe; Z79.4 Long term (current) use of insulin; E11.49 Type 2 diabetes mellitus with other diabetic neurological complication | CPT/HCPCS: 99214 ==

== ENCOUNTER → 2022-07-12 10:05 | Outpatient (BNVA) | payer MEDICAID, SELFPAY | PROVIDERS: PCP Family Medicine; Visit Provider Podiatrist Foot & Ankle Surgery | DX: L97.522 Non-pressure chronic ulcer of other part of left foot with fat layer exposed (principal); Z89.412 Acquired absence of left great toe; E11.621 Type 2 diabetes mellitus with foot ulcer; E11.49 Type 2 diabetes mellitus with other diabetic neurological complication | CPT/HCPCS: 11042 ==

== ENCOUNTER → 2022-07-19 09:33 | Outpatient (BNVA) | payer MEDICAID, SELFPAY | PROVIDERS: PCP Family Medicine; Visit Provider Podiatrist Foot & Ankle Surgery | DX: E11.621 Type 2 diabetes mellitus with foot ulcer (principal); E11.49 Type 2 diabetes mellitus with other diabetic neurological complication; L97.522 Non-pressure chronic ulcer of other part of left foot with fat layer exposed; Z89.412 Acquired absence of left great toe; Z79.4 Long term (current) use of insulin | CPT/HCPCS: 11042 ==

== ENCOUNTER → 2022-07-26 12:47 | Outpatient (BNVA) | payer MEDICAID, SELFPAY | PROVIDERS: PCP Family Medicine; Visit Provider Podiatrist Foot & Ankle Surgery | DX: E11.621 Type 2 diabetes mellitus with foot ulcer (principal); L97.523 Non-pressure chronic ulcer of other part of left foot with necrosis of muscle; E11.49 Type 2 diabetes mellitus with other diabetic neurological complication; Z89.412 Acquired absence of left great toe; Z79.4 Long term (current) use of insulin | CPT/HCPCS: 11043 ==

== ENCOUNTER → 2022-08-02 10:57 | Outpatient (BNVA) | payer MEDICAID, SELFPAY | PROVIDERS: PCP Family Medicine; Visit Provider Podiatrist Foot & Ankle Surgery | DX: E11.621 Type 2 diabetes mellitus with foot ulcer (principal); L97.524 Non-pressure chronic ulcer of other part of left foot with necrosis of bone; E11.49 Type 2 diabetes mellitus with other diabetic neurological complication; Z89.412 Acquired absence of left great toe; Z79.4 Long term (current) use of insulin | CPT/HCPCS: 11044 ==

== ENCOUNTER 2022-08-04 06:29 | Day surgery (SDC) | payer MEDICAID, SELFPAY ==
[2022-08-03 12:50] VITALS: BMI 34.4
[2022-08-04] VITALS (7 sets, daily range): BP systolic 112–168; BP diastolic 63–100; PULSE 66–78; RESP 12–20; TEMP 36.1–36.6; O2SAT 95–99
[2022-08-04 07:14] LABS: Glucose Point of Care 408 mg/dL (70-110)
[2022-08-04] MEDS: sodium chloride 0.9% 1,000 ML 30 ML IV (07:24)
[2022-08-04] MEDS: insulin regular-human 100 units/1 mL 10 UNIT IVP (07:28)
--- NOTE | 2022-08-04 07:41 | W.PM.OPSUD ---
Surgery/Procedure H&P Update DATE OF PROCEDURE: August 04, 2022 DATE H&P PERFORMED: 08/02/22 CHANGES TO PREVIOUS DOCUMENTATION: none PREOP DIAGNOSIS: Diabetic foot infection, left foot. PLANNED PROCEDURE: Operation Date: 08/04/22 08:45 Proposed Procedures p Left Transmetatarsal Amputation 47937,L97.523(Left) - Ernesto Cali DPM
[2022-08-04] MEDS: ceFAZolin 2,000 MG in sodium chloride 0.9% (plus) 50 ML 100 MG IV (07:47)
[2022-08-04] MEDS: HYDROcodone-acetaminophen 5-325 mg Tablet 1 TAB PO (10:04)
--- NOTE | 2022-08-04 10:09 | P.OP_ITS ---
Operative Report Date of procedure: August 04, 2022 Pre-op diagnosis: Left diabetic foot ulceration probes to bone. History of left great toe, second toe and partial fifth ray amputation. Post-op diagnosis: Same Post-op findings: None Procedure done: Left transmetatarsal amputation. CPT code 35859 Implants: 2-0 Vicryl, 4-0 Vicryl, skin lanny, 3-0 nylon Specimens removed/disposition: None Pathology: Remaining left forefoot sent to pathology for permanent. Patient previously underwent left hallux amputation, left second toe amputation and partial fifth ray amputation. The remaining forefoot which included metatarsals and third and fourth toes sent to pathology at today's encounter. Surgeon: Ernesto Cali D.P.M. Environmental Remediation Specialist: Jacqueline Estimated blood loss: 25 See Intra-Op documentation IV fluids: None Urine output: None Complications: None Findings: Devitalized soft tissue and devitalized left second metatarsal head. Brief History: 52-year-old diabetic male presents with diabetic ulcer probes to bone subsecond metatarsal head of the left foot.? Wound has been present for approximately 2 months.? Patient is wishing to discuss surgical options.? X-rays taken reviewed shows soft tissue deficit subsecond metatarsal head of the left foot.? His status post amputation of the left great toe, left second toe and left partial fifth ray.? No soft tissue of eczema or foreign body appreciated.? No acute osseous destruction appreciated on x-ray.? There is arthrosis of the third and fourth metatarsal phalangeal joints with hammertoe contractures of the third and fourth toes. Discussed a variety of options ranging from continued local wound care versus second metatarsal head excision versus floating osteotomy of the second metatarsal versus transmetatarsal amputation.? Patient is requesting transmetatarsal mutation, given previous surgeries, this would likely yield a more functional outcome.? I reviewed at length with the patient, the risks, potential complications, benefits, alternatives, expectations, and typical outcomes associated with the surgery. The risks and potential complications were explained in detail, including but not limited to infection, wound dehiscence or soft tissue complications, bleeding and hematoma, chronic edema, neuritis or nerve damage producing numbness or chronic pain, CRPS, failure to relieve pain or worsening pain, thick / painful / unsightly scar, limited motion / stiffness, malposition, delayed union, malunion, or nonunion, fracture, reaction to implants, anesthetic complications, venous thromboembolism, and deformity recurrence.? I discussed the notion of no regrets with the patient as it pertains to complications and outcomes. The patient seemed to understand the nature of the proposed care and required convalescence. They asked appropriate questions, answered to their satisfaction. They are aware no guarantees can be made as to a satisfactory outcome and they understand there may be other possible unforeseen complications or outcomes not listed here that will be treated accordingly if they arise. There were no written or implied guarantees given to the patient. They gave informed consent to proceed. Procedure: Under mild sedation the patient was brought to the operating room and remained on the gurney in supine position. A timeout was performed. Anesthesia was then administered by the anesthesia service. Left ankle block consisting of 0.5% Marcaine plain total of 20 cc was administered. Well-padded pneumatic tourniquet applied to the left ankle. Left lower extremity was then scrubbed, prepped and draped utilizing normal aseptic technique. No Esmarch utilized. Attention was directed to the left foot where a plantar ulceration was appreciated at the forefoot that probes directly to the second metatarsal head with poor density and discoloration appreciated. Of note patient had underwent previously a left hallux amputation, left second toe amputation and partial left fifth ray amputation. Incision planning was carried out, technique was a fishmouth incision. A full-thickness incision was then performed, this was a nonconventional incision due to need for excision of the plantar wound. Starting at the medial aspect of the first metatarsal head and #10 blade was utilized circumferentially around the forefoot coursing proximally and plantar around the full-thickness wound subsecond metatarsal coursing more distal and circumferentially around to the lateral aspect of the left fifth metatarsal. Sagittal saw was utilized to transect metatarsals 1, 2, 3, 4 and 5 beveling appropriately and maintaining metatarsal parabola, the left forefoot was then sharply excised and passed from operative field and sent to pathology for permanent. The extensor and flexor tendons were transected under traction and all bleeders were ligated and cauterized as necessary. The incision was then flushed with copious amounts of sterile saline solution and closed with 2-0 Vicryl, 3-0 Vicryl, skin lanny and 3-0 nylon. Flap came together nicely without tension. The ankle joint dorsiflexion appreciated intraoperatively was 8 degrees and decision was made to not perform a tendo Achilles lengthening given the amount of dorsiflexion of 8 degrees with knee extended and 10 degrees with knee flexed. The incision was then dressed with Adaptic, sterile 4 x 4, Kerlix, Juan wrap and a cam boot was applied. Tourniquet was deflated and a prompt hyperemic response was noted to the distal left transmetatarsal amputati on site. Patient tolerated the procedure and anesthesia well and was transferred to the PACU with vital signs stable and vascular status intact. Following a period of postop monitoring he will be discharged home.
--- NOTE | 2022-08-04 10:28 | P.ANESASSM_ITS ---
Pre-Anesthetic Assessment Height/Weight: Height 1.78 m Weight 108.862 kg Temp Pulse Resp BP Pulse Ox O2 Del Method O2 Flow Rate 97.8 F 66 18 139/100 96 6 08/04/22 09:40 08/04/22 09:40 08/04/22 09:40 08/04/22 09:40 08/04/22 09:40 08/04/22 09:40 08/04/22 08:48 Preop Diagnosis: Diabetic foot infection, left foot. Operation Date: 08/04/22 08:45 Proposed Procedures p Left Transmetatarsal Amputation 02787,L97.523(Left) - Ernesto Cali DPM Familial anesthetic complications: none Was Beta Jeff taken within 24 hours: Yes Was Clonidine taken within 24 hours: N/A Last intake: Intake Last Liquid Date 08/03/22 Last Liquid Time 22:45 Last Solid Date 08/03/22 Last Solid Time 22:45 Social Tobacco and No alcohol Exam alert, oriented x 3 and regular rate & rhythm Airway Submandibular: within normal limits Cervical ROM: within normal limits Mallampati: Class II Dentition: false Pulmonary Chronic Obstructive Pulmonary Disease CV/HEM Coronary Artery Disease, Hypertension and Peripheral Vascular Disease Metabolic Diabetes Mellitus, Hyperlipidemia, Morbid Obesity and Thyroid Disease Anesthetic Plan ASA status: 3 Anesthesia: MAC Medications/Allergies Home Medications Medication Instructions Recorded Confirmed Last Taken Type hydrocodone 10 mg-acetaminophen 1 tab PO .5 times a day pain 30 11/01/21 08/04/22 08/03/22 Rx 325 mg tablet days #150 tabs liraglutide 0.6 mg/0.1 mL (18 mg/3 1.8 mg (0.3 mL) SUBCUT QAM #9 mL 12/23/21 08/04/22 08/02/22 Rx mL) subcutaneous pen injector (Victoza 3-Bjorn) potassium chloride 10 mEq See Rx Instructions .Route 12/28/21 08/04/22 08/01/22 Rx tablet,extended release .COMPLEX #90 tabs furosemide 20 mg tablet 20 - 40 mg PO DAILY PRN edema #30 02/24/22 08/04/22 08/03/22 Rx tabs Diabetic Shoes #1 ea 03/02/22 08/02/22 Unknown Rx lisinopril 40 mg tablet See Rx Instructions .Route 03/03/22 08/04/22 08/03/22 Rx .COMPLEX #30 tabs metoprolol succinate 50 mg 50 mg PO DAILY@0900 #90 tabs 03/03/22 08/04/22 08/03/22 Rx tablet,extended release 24 hr rosuvastatin 10 mg tablet See Rx Instructions .Route 03/03/22 08/04/22 08/02/22 Rx .COMPLEX #90 tabs aspirin 81 mg tablet,delayed See Rx Instructions .Route 03/07/22 08/04/22 08/02/22 Rx release .COMPLEX #90 tabs insulin aspart U-100 100 unit/mL 20 unit (0.2 mL) SUBCUT TID #15 mL 03/17/22 08/04/22 08/02/22 Rx (3 mL) subcutaneous pen (Novolog Flexpen U-100 Insulin aspart) insulin detemir U-100 100 unit/mL See Rx Instructions .Route 03/17/22 08/04/22 08/02/22 Rx (3 mL) subcutaneous pen (Levemir .COMPLEX #45 mL FlexTouch U-100 Insulin) blood sugar diagnostic (OneTouch See Rx Instructions .Route 05/18/22 08/03/22 Unknown Rx Verio test strips) .COMPLEX #100 strips blood-glucose meter (OneTouch #1 ea 05/18/22 08/02/22 Unknown Rx Verio Flex Meter) pantoprazole 40 mg tablet,delayed See Rx Instructions .Route 05/22/22 08/04/22 08/02/22 Rx release .COMPLEX #30 tabs nortriptyline 50 mg capsule See Rx Instructions .Route 06/16/22 08/04/22 08/02/22 Rx .COMPLEX #60 caps cam boot #1 ea 06/28/22 08/02/22 Unknown Rx pen needle, diabetic 32 gauge x ##100 07/26/22 08/02/22 Unknown Rx 1/4 (TechLITE Pen Needle) ropinirole 1 mg tablet See Rx Instructions .Route 08/03/22 08/04/22 08/03/22 History .COMPLEX pain hydrocodone 5 mg-acetaminophen 325 1 tab PO Q6H PRN pain 7 days #20 08/04/22 Unknown Rx mg tablet tabs Allergies Allergy/AdvReac Type Severity Reaction Status Date / Time No Known Allergies Allergy Verified 08/03/22 12:43 [facility] Anesthesia Medical History Acute renal failure Amputated great toe Cellulitis and abscess of right lower extremity Cellulitis of leg, right CHF (congestive heart failure) Chronic pain in right foot Diabetes mellitus with polyneuropathy Diverticulosis Dyslipidemia Dyslipidemia Encounter for long-term use of opiate analgesic Essential (primary) hypertension Hallux rigidus, right foot History of amputation of left great toe History of amputation of right great toe History of malignant melanoma History of nonmelanoma skin cancer Non-pressure chronic ulcer of other part of right foot with necrosis of bone Restless leg syndrome Shoulder pain Sleep apnea in adult Type 2 diabetes mellitus with other diabetic neurological complication Wound dehiscence, surgical Surgical History H/O hernia repair History of amputation of lesser toe of right foot History of ankle surgery History of colonoscopy 2018 History of inguinal hernia repair, bilateral 1970,1977 Hx of amputation of lesser toe Left foot big toe and second toe 01/21/20 at [facility] [place] Status post PICC central line placement Family History Mother Cancer Other Dyslipidemia Denies family history of Diabetes CAD (coronary artery disease) Clotting disorder Dementia Hyperlipidemia Psychiatric illness Chronic kidney disease (CKD) Suicide Anesthesia complication Bleeding disorder Family history of premature coronary artery disease Lung disease Hypertension Stroke Social History Smoking and tobacco status: never smoked Second hand smoke exposure: No Alcohol intake: former Desire information about alcohol rehabilitation?: No Counseling given: No Adopted: No Caregiver/support person: Yes Lives independently: Yes Household members: spouse and significant other Housing: House Marital status: Life Partner Number of children: 0 Highest education level completed: High School Graduate service: Yes Current occupational status: retired Pets and animals: Yes History of recent travel: No Current gender identity: Male Yolande/Pentecostalism: None Agree to transfusion: Yes Financial difficulty paying for basics: Somewhat Hard Data Anesthesia Cardiac Studies: Echocardiogram Ultrasound 01/10/21
--- NOTE | 2022-08-04 13:28 | ANE.PACU2 ---
Inpatient post-anesthesia follow up: Airway intact: Yes Vital signs: Temperature 97.8 F Pulse Rate 66 Respiratory Rate 18 Blood Pressure 139/100 Pulse Oximetry 96 Oxygen Delivery Me thod Room Air Oxygen Flow Rate 6 Fraction of Inspir ed Oxygen Hydration adequate: Yes Nausea and vomiting: No Pain level: 2 Mental status: Baseline
[2022-08-07 05:35] LABS: Glucose Point of Care 384 mg/dL (70-110)
== END 2022-08-04 10:09 | disposition home or self-care (01) ==
PROVIDERS: PCP Family Medicine; Visit Provider Podiatrist Foot & Ankle Surgery
PROC: (CPT 28805; principal; 2022-08-04 08:35)
DX: E11.621 Type 2 diabetes mellitus with foot ulcer (principal); Z89.422 Acquired absence of other left toe(s); J44.9 Chronic obstructive pulmonary disease, unspecified; I25.10 Atherosclerotic heart disease of native coronary artery without angina pectoris; E78.5 Hyperlipidemia, unspecified; E66.01 Morbid (severe) obesity due to excess calories; Z68.34 Body mass index [BMI] 34.0-34.9, adult; Z79.82 Long term (current) use of aspirin; I11.0 Hypertensive heart disease with heart failure; I50.9 Heart failure, unspecified
CPT/HCPCS: 28805; 36416; 82962; 88307; 88311; J1815; J2250; J2704; J3010; J3490; J7030

== ENCOUNTER → 2022-08-11 13:07 | Outpatient (BNVA) | payer MEDICAID, SELFPAY | PROVIDERS: PCP Family Medicine; Visit Provider Podiatrist Foot & Ankle Surgery | DX: E11.621 Type 2 diabetes mellitus with foot ulcer (principal); Z79.4 Long term (current) use of insulin; Z89.422 Acquired absence of other left toe(s); L97.522 Non-pressure chronic ulcer of other part of left foot with fat layer exposed; E11.49 Type 2 diabetes mellitus with other diabetic neurological complication | CPT/HCPCS: 99024 ==

== ENCOUNTER → 2022-08-17 10:37 | Outpatient (BNVA) | payer MEDICAID, SELFPAY | PROVIDERS: PCP Family Medicine; Visit Provider Family Medicine | DX: E78.5 Hyperlipidemia, unspecified (principal); E11.49 Type 2 diabetes mellitus with other diabetic neurological complication; Z98.890 Other specified postprocedural states | CPT/HCPCS: 80053; 80061; 83036; 99024; 99214 ==

== ENCOUNTER → 2022-08-23 14:25 | Outpatient (BNVA) | payer MEDICAID, SELFPAY | PROVIDERS: PCP Family Medicine; Visit Provider Podiatrist Foot & Ankle Surgery | DX: Z98.890 Other specified postprocedural states (principal); Z89.432 Acquired absence of left foot; Z79.4 Long term (current) use of insulin; E11.49 Type 2 diabetes mellitus with other diabetic neurological complication; Z89.439 Acquired absence of unspecified foot | CPT/HCPCS: 99213 ==

== ENCOUNTER → 2022-08-30 09:17 | Outpatient (BNVA) | payer MEDICAID, SELFPAY | PROVIDERS: PCP Family Medicine; Visit Provider Podiatrist Foot & Ankle Surgery | DX: E11.49 Type 2 diabetes mellitus with other diabetic neurological complication (principal); Z89.432 Acquired absence of left foot; Z79.4 Long term (current) use of insulin | CPT/HCPCS: 99213 ==

== ENCOUNTER → 2022-09-12 07:42 | Outpatient (BNVA) | payer MEDICAID, SELFPAY | PROVIDERS: PCP Family Medicine; Visit Provider Podiatrist Foot & Ankle Surgery | DX: E11.49 Type 2 diabetes mellitus with other diabetic neurological complication (principal); Z89.432 Acquired absence of left foot; Z79.4 Long term (current) use of insulin | CPT/HCPCS: 99213 ==

== ENCOUNTER → 2022-09-20 13:13 | Outpatient (BNVA) | payer MEDICAID, SELFPAY | PROVIDERS: PCP Family Medicine; Visit Provider Podiatrist Foot & Ankle Surgery | DX: E11.49 Type 2 diabetes mellitus with other diabetic neurological complication (principal); Z89.432 Acquired absence of left foot; Z79.4 Long term (current) use of insulin | CPT/HCPCS: 99213 ==

== ENCOUNTER → 2022-09-27 13:14 | Outpatient (BNVA) | payer MEDICAID, SELFPAY | PROVIDERS: PCP Family Medicine; Visit Provider Podiatrist Foot & Ankle Surgery | DX: E11.621 Type 2 diabetes mellitus with foot ulcer (principal); L97.522 Non-pressure chronic ulcer of other part of left foot with fat layer exposed; E11.49 Type 2 diabetes mellitus with other diabetic neurological complication; Z89.432 Acquired absence of left foot; Z79.4 Long term (current) use of insulin | CPT/HCPCS: 99024; 99214 ==

== ENCOUNTER → 2022-10-11 09:23 | Outpatient (BNVA) | payer MEDICAID, SELFPAY | PROVIDERS: PCP Family Medicine; Visit Provider Podiatrist Foot & Ankle Surgery | DX: E11.49 Type 2 diabetes mellitus with other diabetic neurological complication (principal); Z89.432 Acquired absence of left foot; Z79.4 Long term (current) use of insulin | CPT/HCPCS: 99214 ==

== ENCOUNTER → 2022-11-16 08:45 | Outpatient (BNVA) | payer MEDICAID, SELFPAY | PROVIDERS: PCP Family Medicine; Visit Provider Family Medicine | DX: E11.49 Type 2 diabetes mellitus with other diabetic neurological complication (principal); L97.522 Non-pressure chronic ulcer of other part of left foot with fat layer exposed; I10 Essential (primary) hypertension | CPT/HCPCS: 80053; 83036 ==

== ENCOUNTER → 2023-01-16 09:04 | Outpatient (BNVA) | payer MEDICAID, SELFPAY | PROVIDERS: PCP Family Medicine; Visit Provider Podiatrist Foot & Ankle Surgery | DX: E11.49 Type 2 diabetes mellitus with other diabetic neurological complication (principal); Z89.432 Acquired absence of left foot; Z79.84 Long term (current) use of oral hypoglycemic drugs; Z79.4 Long term (current) use of insulin | CPT/HCPCS: 99213 ==

== ENCOUNTER 2023-01-26 19:18 | Emergency (ER) | payer MEDICAID, SELFPAY ==
[2023-01-26] VITALS (7 sets, daily range): BP systolic 176–190; BP diastolic 83–98; PULSE 76–84; RESP 15–22; TEMP 36.7; O2SAT 93–97; BMI 37.3
--- NOTE | 2023-01-26 19:27 | ECG_ITS ---
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 Measurements Intervals [place] Rate: 81 P: 1 [place]: 170 QRS: -30 QRSD: 90 T: 87 QT: 337 QTc: 392 Interpretive Statements SINUS RHYTHM BORDERLINE LEFT AXIS DEVIATION [QRS AXIS < -20] POSSIBLE RIGHT VENTRICULAR CONDUCTION DELAY [RSR (QR) IN V1/V2] Compared to ECG 11/06/2019 15:53:44 Sinus bradycardia no longer present Electronically Signed On 01-27-2023 10:29:37 CDT by Blaine Mattson M.D. [id number]
--- NOTE | 2023-01-26 19:34 | XRR_ITS ---
PROCEDURE INFORMATION: Exam: XR Chest Exam date and time: 01/26/2023 7:54 PM Age: 52 years old Clinical indication: Pain; Chest pressure; Additional info: Cp, numbness in arms, hadache TECHNIQUE: Imaging protocol: Radiologic exam of the chest. Views: 1 view. COMPARISON: CR XR chest 1V portable [id number] 01/12/2021 11:01 AM FINDINGS: Tubes, catheters and devices: There are new surgical clips on the right side of the neck compared with 01/12/2021. Lungs: Visualized portions of the lungs are clear. Pleural spaces: Unremarkable. No pleural effusion. No pneumothorax. Heart/Mediastinum: Heart is within normal limits of size. Bones/joints: There are degenerative changes in thoracic spine. There is old healed fracture of the posterior right 7th rib. XR/XR chest 1V portable [id number] IMPRESSION: No acute infiltrate.
[2023-01-26 20:25] LABS: Basophils # 0.1 10^3/uL (0.0-0.1); Basophils % 0.9 %; Eosinophils # 0.1 10^3/uL (0.0-0.8); Eosinophils % 0.9 %; Hemoglobin 12.8 g/dL (11.7-16.6); Lymphocytes % 16.9 %; Mean Corpuscular Hemoglobin 24.9 pg (28.0-34.0); Mean Corpuscular Volume 77.7 fl (80-94); Mean Platelet Volume 9.9 fL (7.4-10.4); Monocytes # 0.7 10^3/uL (0.2-0.9); Monocytes % 11.4 %; Neutrophils # 4.02 10^3/uL (1.8-7.7); Neutrophils % 69.2 %; Nucleated Red Blood Cells % 0 %; Platelet Count 225 10^3/cmm (130-400); Red Blood Count 5.15 10^6/uL (4.1-5.3); Red Cell Distribution Width 15.3 % (12.1-15.1); White Blood Count 5.8 10^3/uL (4.0-10.0)
[2023-01-26 20:50] LABS: Alanine Aminotransferase 28 U/L (0-41); Alkaline Phosphatase 75 U/L (40-130); Anion Gap 17.2 (5-19); Aspartate Amino Transferase 22 U/L (0-40); Blood Urea Nitrogen 15 mg/dL (6-20); Carbon Dioxide 20 mmol/L (22-29); Chloride 98 mmol/L (98-107); Globulin 2.4 g/dL (1.3-4.6); Glomerular Filtration Rate 63.1 mL/min (90-130); Glucose 303 mg/dL (65-115); Osmolality Calculated 284 mOsm/kg (285-295); Potassium 4.2 mmol/L (3.5-5.1); Sodium 131 mmol/L (136-145); Total Bilirubin 0.4 mg/dL (0.15-1.2); Total Protein 6.4 g/dL (6.6-8.7)
[2023-01-26 20:52] LABS: Troponin(5th) Baseline 14 ng/L (0-15)
--- NOTE | 2023-01-26 21:15 | ED_ITS ---
Documented by User: VICENTE Garrett 01/27/23 02:57 HPI - Chest Pain General: Chief Complaint: Chest Pain Stated Complaint: cp, bilateral arm pain, tinsley Time Seen by Provider: 01/26/23 20:28 History of Present Illness: Patient is a 52-year-old male comes to the ED with chest pain. Past medical history of hypertension and type 2 diabetes and takes insulin. Symptoms started approximately 3 hours ago. Patient says he was sitting and eating dinner at [employer] when symptoms started. He describes feeling left-sided chest pain and heart palpitations. He rates his pain currently a 7 out of 10. Pain radiates into the arms bilaterally and endorses some numbness tingling sensation to arms bilaterally as well. When he rests does not move symptoms improved. Any movement of arms or getting up and moving around causes worsening pain. Endorses having some diaphoresis when episode started. Patient does take a daily 81 mg aspirin. Denies any fever, chills, nausea/vomiting, abdominal pain, bladder or bowel symptoms. Associated symptoms: Reports palpitations; Deny abdominal pain, dyspnea, fever(s), nausea or vomiting Review of Systems Const: Denies: fever(s), chills or fatigue Eyes: Denies: change in vision or eye discomfort ENMT: Denies: throat pain, odynophagia, nasal discharge or nasal congestion Card: Reports: chest pain and palpitations; Denies: edema, swelling of feet/ankles, dyspnea on exertion or orthopnea Resp: Denies: dyspnea, productive cough or non-productive cough GI: Denies: abdominal pain, nausea, vomiting, diarrhea, constipation or hematochezia : Denies: flank pain, difficulty urinating, dysuria or hematuria Musc: Denies: neck pain, back pain or extremity swelling Skin/Breast: Denies: rash or new lesions Neuro: Denies: headache(s), numbness in extremities or weakness in extremities PFSH ED PFSH: Medical History Acute renal failure Amputated great toe Cellulitis and abscess of right lower extremity Cellulitis of leg, right CHF (congestive heart failure) Chronic pain in right foot Diabetes mellitus with polyneuropathy Diverticulosis Dyslipidemia Dyslipidemia Encounter for long-term use of opiate analgesic Essential (primary) hypertension Hallux rigidus, right foot History of amputation of left great toe History of amputation of right great toe History of malignant melanoma History of nonmelanoma skin cancer Non-pressure chronic ulcer of other part of right foot with necrosis of bone Restless leg syndrome Shoulder pain Sleep apnea in adult Type 2 diabetes mellitus with other diabetic neurological complication Wound dehiscence, surgical Surgical History H/O hernia repair History of amputation of lesser toe of right foot History of ankle surgery History of colonoscopy 2018 History of inguinal hernia repair, bilateral 1970,1977 Hx of amputation of lesser toe Left foot big toe and second toe 01/21/[address] [facility] Dr. Leal Status post PICC central line placement Family History Mother Cancer Other Dyslipidemia Denies family history of Diabetes CAD (coronary artery disease) Clotting disorder Dementia Hyperlipidemia Psychiatric illness Chronic kidney disease (CKD) Suicide Anesthesia complication Bleeding disorder Family history of premature coronary artery disease Lung disease Hypertension Stroke Social History Smoking and tobacco status: never smoked Second hand smoke exposure: No Alcohol intake: former Desire information about alcohol rehabilitation?: No Counseling given: No Adopted: No Caregiver/support person: Yes Lives independently: Yes Household members: spouse and significant other Housing: House Marital status: Life Partner Number of children: 0 Highest education level completed: High School Graduate service: Yes Current occupational status: retired Pets and animals: Yes Current gender identity: Male Yolande/Amish: None Agree to transfusion: Yes Financial difficulty paying for basics: Somewhat Hard Physical Exam Const: COMMON NORMALS: patient oriented x3 and alert GENERAL APPEARANCE: cooperative HENMT: COMMON NORMALS: normocephalic HEAD & SCALP: normocephalic MOUTH: Normal oral and palatal mucosa present THROAT: posterior oropharynx normal and uvula midline Neck/C-Spine: COMMON NORMALS: supple GENERAL: Yes normal visual inspection Resp: COMMON NORMALS: normal respiratory effort, No retractions, No use of accessory muscles and clear to auscultation bilaterally AUSCULTATION: clear to auscultation bilaterally Cardio: COMMON NORMALS: regular rate, regular rhythm, S1 normal heart sound present, S2 normal heart sound present, No gallops present (Cardio), No clicks present (Cardio), No murmurs present (Cardio) and Peripheral pulses 2+ throughout RATE: regular rate RHYTHM: regular rhythm HEART SOUNDS: S1 normal heart sound present and S2 normal heart sound present PERIPHERAL PULSES: Peripheral pulses 2+ throughout GI: COMMON NORMALS: Normal to inspection, nondistended, normoactive bowel sounds present, Soft to palpation, non-tender and no masses PALPATION: Yes Soft to palpation : COMMON NORMALS: Yes no CVA tenderness BLADDER/KIDNEY EXAM: Yes no CVA tenderness Back/Pelvis: COMMON NORMALS: no CVA tenderness Extremity: COMMON NORMALS: normal to inspection Neuro: COMMON NORMALS: patient oriented x3 SENSORIUM/ORIENTATION: Yes alert GAIT: Yes Normal gait present Skin: GENERAL SKIN EXAM: dry skin Course Vital Signs: Vital signs: Vital Signs Temperature 98.0 F 01/26/23 22:59 Pulse Rate 82 01/26/23 22:59 Respiratory Rate 15 01/26/23 22:59 Blood Pressure 185/98 01/26/23 22:59 Pulse Oximetry 93 01/26/23 22:59 Oxygen Delivery Me thod Room Air 01/26/23 22:00 MDM - Chest Pain Medical Decision Making Patient is a 52-year-old male comes to the ED with chest pain. Past medical history of hypertension and type 2 diabetes and takes insulin. Symptoms started approximately 3 hours ago. Patient says he was sitting and eating dinner at [employer] when symptoms started. He describes feeling left-sided chest pain and heart palpitations. He rates his pain currently a 7 out of 10. Pain radiates into the arms bilaterally and endorses some numbness tingling sensation to arms bilaterally as well. When he rests does not move symptoms improved. Any movement of arms or getting up and moving around causes worsening pain. Endorses having some diaphoresis when episode started. Patient does take a daily 81 mg aspirin. Denies any fever, chills, nausea/vomiting, abdominal pain, bladder or bowel symptoms. Vitals are stable. Exam of patient is benign. CBC and CMP are unremarkable. EKG showed normal sinus rhythm, [address] segment elevation or depression seen. Chest X showed no acute findings. First troponin 14 and 2-hour troponin was 14.02. patient was given IV morphine and aspirin here in the ED and his symptoms resolved. Patient was stable for discharge home diagnosed with atypical chest pain and was stable for discharge home. Follow-up with PCP in the next week for reevaluation. Return to ED precautions given. Patient understood agree with plan. Dr. Renteria reviewed case and agreed with plan. Lab Data I reviewed the patient's lab results. 01/26/23 20:15 01/26/23 20:15 Radiology Impressions Chest X-Ray 01/26/23 19:34 IMPRESSION: No acute infiltrate. Laboratory Results WBC 5.8 10^3/uL (4.0-10.0) 01/26/23 20:15 RBC 5.15 10^6/uL (4.1-5.3) 01/26/23 20:15 Hgb 12.8 g/dL (11.7-16.6) 01/26/23 20:15 Hct 40.0 % (42.0-52.0) L 01/26/23 20:15 MCV 77.7 fl (80-94) L 01/26/23 20:15 MCH 24.9 pg (28.0-34.0) L 01/26/23 20:15 MCHC 32.0 g/dL (30.0-36.0) 01/26/23 20:15 RDW 15.3 % (12.1-15.1) H 01/26/23 20:15 Plt Count 225 10^3/cmm (130-400) 01/26/23 20:15 MPV 9.9 fL (7.4-10.4) 01/26/23 20:15 Neut % (Auto) 69.2 % 01/26/23 20:15 Lymph % (Auto) 16.9 % 01/26/23 20:15 Berks % (Auto) 11.4 % 01/26/23 20:15 Eos % (Auto) 0.9 % 01/26/23 20:15 Baso % (Auto) 0.9 % 01/26/23 20:15 Neut # (Auto) 4.02 10^3/uL (1.8-7.7) 01/26/23 20:15 Lymph # (Auto) 1.0 10^3/uL (0.8-4.8) 01/26/23 20:15 Berks # (Auto) 0.7 10^3/uL (0.2-0.9) 01/26/23 20:15 Eos # (Auto) 0.1 10^3/uL (0.0-0.8) 01/26/23 20:15 Baso # (Auto) 0.1 10^3/uL (0.0-0.1) 01/26/23 20:15 Nucleated RBC % (auto) 0 % 01/26/23 20:15 Nucleated RBCs # 0.0 /100WBC 01/26/23 20:15 Sodium 131 mmol/L (136-145) L 01/26/23 20:15 Potassium 4.2 mmol/L (3.5-5.1) 01/26/23 20:15 Chloride 98 mmol/L (98-107) 01/26/23 20:15 Carbon Dioxide 20 mmol/L (22-29) L 01/26/23 20:15 Anion Gap 17.2 (5-19) 01/26/23 20:15 BUN 15 mg/dL (6-20) 01/26/23 20:15 Creatinine 1.2 mg/dL (0.7-1.2) 01/26/23 20:15 GFR Calculation 63.1 mL/min (90-130) L 01/26/23 20:15 Glucose 303 mg/dL (65-115) H 01/26/23 20:15 Calculated Osmolality 284 mOsm/kg (285-295) L 01/26/23 20:15 Calcium 8.0 mg/dL (8.5-10.5) L 01/26/23 20:15 Total Bilirubin 0.4 mg/dL (0.15-1.2) 01/26/23 20:15 AST 22 U/L (0-40) 01/26/23 20:15 ALT 28 U/L (0-41) 01/26/23 20:15 Alkaline Phosphatase 75 U/L (40-130) 01/26/23 20:15 Troponin T Baseline 14 ng/L (0-15) 01/26/23 20:15 Troponin T 120 Minute 14.02 ng/L (0-15) 01/26/23 21:57 Delta Troponin T 0.02 ABS# (0-10) 01/26/23 21:57 Total Protein 6.4 g/dL (6.6-8.7) L 01/26/23 20:15 Albumin 4.0 g/dL (3.5-5.2) 01/26/23 20:15 Globulin 2.4 g/dL (1.3-4.6) 01/26/23 20:15 EKG Data EKG 1: EKG interpretation date: 01/26/23 Interpretation: Sinus rhythm, 81 bpm, no ST segment elevation or depression seen. Discharge Plan Discharge Patient Disposition: Home Clinical Impression: Atypical chest pain Condition: Stable Prescriptions: No Action hydrocodone-acetaminophen 10-325 mg tablet 1 tab PO .5 times a day 30 Days Qty: 150 0RF Rx Instructions: fill on or after 11/04/21 ([facility] [place]) blood-glucose meter [OneTouch Verio Flex meter] [facility] See Rx Instructions .Route Qty: 1 0RF Rx Instructions: As directed OneTouch Verio test strips Strip See Rx Instructions .ROUTE .COMPLEX Qty: 100 11RF Dose Instruction: USE TO TEST THREE TIMES DAILY Rx Instructions: USE TO TEST THREE TIMES DAILY ([facility]) Toe Filler See Rx Instructions .Route .MEDSUPPLY Qty: 1 0RF Rx Instructions: As directed by Ying ([facility]) Diabetic Shoes See Rx Instructions .Route .MEDSUPPLY Qty: 1 0RF Rx Instructions: Diabetic shoes with inserts with toe lift Victoza 3-Bjorn 0.6 mg/0.1 mL (18 mg/3 mL) pen injector 1.8 mg SUBCUT QAM Qty: 9 5RF mupirocin 2 % ointment 1 applic topical BID Qty: 22 2RF furosemide 20 mg tablet 20 - 40 mg PO DAILY PRN (Reason: edema) Qty: 30 0RF Rx Instructions: MUST have follow-up for further refills metoprolol succinate 50 mg tablet extended release 24 hr 50 mg PO DAILY@0900 Qty: 90 3RF metformin 500 mg tablet extended release 24hr 500 mg PO DAILY Qty: 90 0RF rosuvastatin 10 mg tablet See Rx Instructions .ROUTE .COMPLEX Qty: 30 2RF Dose Instruction: TAKE 1 TABLET BY MOUTH EVERY DAY AT BEDTIME (8PM) Rx Instructions: TAKE 1 TABLET BY MOUTH EVERY DAY AT BEDTIME (8PM) ropinirole 1 mg tablet See Rx Instructions .ROUTE .COMPLEX Qty: 30 1RF Dose Instruction: TAKE 1 TABLET BY MOUTH EVERY DAY AT 9AM FOR 30 DAYS FOR PAIN Rx Instructions: TAKE 1 TABLET BY MOUTH EVERY DAY AT 9AM FOR 30 DAYS FOR PAIN Levemir FlexTouch U-100 Insuln 100 unit/mL (3 mL) insulin pen See Rx Instructions .ROUTE .COMPLEX Qty: 15 1RF Dose Instruction: INJECT 55 UNITS SUBCUTANEOUSLY EVERY DAY AT 9AM Rx Instructions: INJECT 55 UNITS SUBCUTANEOUSLY EVERY DAY AT 9AM insulin aspart U-100 [Novolog FlexPen U-100 Insulin] 100 unit/mL (3 mL) insulin pen 20 unit SUBCUT TID Qty: 15 2RF Rx Instructions: Please dispense needle tips as well potassium chloride 10 mEq tablet extended release See Rx Instructions .ROUTE .COMPLEX Qty: 90 2RF Dose Instruction: TAKE 1-2 TABLETS BY MOUTH EVERY THREE DAYS Rx Instructions: TAKE 1-2 TABLETS BY MOUTH EVERY THREE DAYS pantoprazole 40 mg tablet,delayed release (DR/EC) See Rx Instructions .ROUTE .COMPLEX Qty: 30 2RF Dose Instruction: TAKE 1 TABLET BY MOUTH EVERY DAY AT 9AM Rx Instructions: TAKE 1 TABLET BY MOUTH EVERY DAY AT 9AM aspirin 81 mg tablet,delayed release (DR/EC) See Rx Instructions .ROUTE .COMPLEX Qty: 90 0RF Hold Instructions: Resume on 10/29/21. Dose Instruction: TAKE 1 TABLET BY MOUTH EVERY DAY AT 9AM Rx Instructions: TAKE 1 TABLET BY MOUTH EVERY DAY AT 9AM lisinopril 40 mg tablet See Rx Instructions .ROUTE .COMPLEX Qty: 90 0RF Dose Instruction: TAKE 1 TABLET BY MOUTH EVERY DAY AT 9AM Rx Instructions: TAKE 1 TABLET BY MOUTH EVERY DAY AT 9AM (DME) pen needle, diabetic [TechLITE Pen Needle] 32 gauge x 1/4 needle See Rx Instructions .ROUTE .COMPLEX Qty: 100 3RF Dose Instruction: FOR USE WITH INSULIN UP TO 5 TIMES DAILY Rx Instructions: FOR USE WITH INSULIN UP TO 5 TIMES DAILY Discharge Orders: Discharge ED (Routine); Ordered 01/26/23 Ordered By: Derik Miranda Referrals: Cindy Hsu DO [Primary Care Provider] - Discharge Diet: Regular Discharge Activity: Increase activity as tolerated Patient Instructions: Chest Pain (ED), Noncardiac Chest Pain (ED) Activity Restrictions/Additional Instructions: Follow-up with medical provider as directed in the next 5 to 7 days for reevaluation. Continue taking all home medications as previously prescribed. Return to the ER or your medical provider if condition worsens. Please read and understand discharge instructions. Thank you for choosing [facility] for your healthcare needs today. Please realize this is an emergency room and that we are providing you with a medical screening exam and this may not be complete and all inclusive of all the testing and or work up that you may need to determine your ailment or severity of your illness. It is very important that you follow up as instructed or that you return to the Emergency Department should you have concerns or if your condition changes or worsens in any way. Coding Level of Care Code ED [facility] Fwd Documented by User: Pedrito Renteria DO 01/27/23 03:42 HPI - Chest Pain General: Chief Complaint: Chest Pain Stated Complaint: cp, bilateral arm pain, tinsley Time Seen by Provider: 01/26/23 20:28 PFSH ED PFSH: Medical History Acute renal failure Amputated great toe Cellulitis and abscess of right lower extremity Cellulitis of leg, right CHF (congestive heart failure) Chronic pain in right foot Diabetes mellitus with polyneuropathy Diverticulosis Dyslipidemia Dyslipidemia Encounter for long-term use of opiate analgesic Essential (primary) hypertension Hallux rigidus, right foot History of amputation of left great toe History of amputation of right great toe History of malignant melanoma History of nonmelanoma skin cancer Non-pressure chronic ulcer of other part of right foot with necrosis of bone Restless leg syndrome Shoulder pain Sleep apnea in adult Type 2 diabetes mellitus with other diabetic neurological complication Wound dehiscence, surgical Surgical History H/O hernia repair History of amputation of lesser toe of right foot History of ankle surgery History of colonoscopy 2018 History of inguinal hernia repair, bilateral 1970,1977 Hx of amputation of lesser toe Left foot big toe and second toe 01/21/[address] [facility] Dr. Leal Status post PICC central line placement Family History Mother Cancer Other Dyslipidemia Denies family history of Diabetes CAD (coronary artery disease) Clotting disorder Dementia Hyperlipidemia Psychiatric illness Chronic kidney disease (CKD) Suicide Anesthesia complication Bleeding disorder Family history of premature coronary artery disease Lung disease Hypertension Stroke Social History Smoking and tobacco status: never smoked Second hand smoke exposure: No Alcohol intake: former Desire information about alcohol rehabilitation?: No Counseling given: No Adopted: No Caregiver/support person: Yes Lives independently: Yes Household members: spouse and significant other Housing: House Marital status: Life Partner Number of children: 0 Highest education level completed: High School Graduate service: Yes Current occupational status: retired Pets and animals: Yes Current gender identity: Male Yolande/Amish: None Agree to transfusion: Yes Financial difficulty paying for basics: Somewhat Hard Course Vital Signs: Vital signs: Vital Signs Temperature 98.0 F 01/26/23 22:59 Pulse Rate 82 01/26/23 22:59 Respiratory Rate 15 01/26/23 22:59 Blood Pressure 185/98 01/26/23 22:59 Pulse Oximetry 93 01/26/23 22:59 Oxygen Delivery Me thod Room Air 01/26/23 22:00 MDM - Chest Pain Medical Decision Making Patient is a 52-year-old male comes to the ED with chest pain. Past medical history of hypertension and type 2 diabetes and takes insulin. Symptoms started approximately 3 hours ago. Patient says he was sitting and eating dinner at [employer] when symptoms started. He describes feeling left-sided chest pain and heart palpitations. He rates his pain currently a 7 out of 10. Pain radiates into the arms bilaterally and endorses some numbness tingling sensation to arms bilaterally as well. When he rests does not move symptoms improved. Any movement of arms or getting up and moving around causes worsening pain. Endorses having some diaphoresis when episode started. Patient does take a daily 81 mg aspirin. Denies any fever, chills, nausea/vomiting, abdominal pain, bladder or bowel symptoms. Vitals are stable. Exam of patient is benign. CBC and CMP are unremarkable. EKG showed normal sinus rhythm, [address] segment elevation or depression seen. Chest X showed no acute findings. First troponin 14 and 2-hour troponin was 14.02. patient was given IV morphine and aspirin here in the ED and his symptoms resolved. Patient was stable for discharge home diagnosed with atypical chest pain and was stable for discharge home. Follow-up with PCP in the next week for reevaluation. Return to ED precautions given. Patient understood agree with plan. Dr. Renteria reviewed case and agreed with plan. This patient was originally seen by Mr. Ruth PA-C.? I agree with his history, evaluation, and treatment. Lab Data 01/26/23 20:15 01/26/23 20:15 Radiology Impressions Chest X-Ray 01/26/23 19:34 IMPRESSION: No acute infiltrate. Laboratory Results WBC 5.8 10^3/uL (4.0-10.0) 01/26/23 20:15 RBC 5.15 10^6/uL (4.1-5.3) 01/26/23 20:15 Hgb 12.8 g/dL (11.7-16.6) 01/26/23 20:15 Hct 40.0 % (42.0-52.0) L 01/26/23 20:15 MCV 77.7 fl (80-94) L 01/26/23 20:15 MCH 24.9 pg (28.0-34.0) L 01/26/23 20:15 MCHC 32.0 g/dL (30.0-36.0) 01/26/23 20:15 RDW 15.3 % (12.1-15.1) H 01/26/23 20:15 Plt Count 225 10^3/cmm (130-400) 01/26/23 20:15 MPV 9.9 fL (7.4-10.4) 01/26/23 20:15 Neut % (Auto) 69.2 % 01/26/23 20:15 Lymph % (Auto) 16.9 % 01/26/23 20:15 Berks % (Auto) 11.4 % 01/26/23 20:15 Eos % (Auto) 0.9 % 01/26/23 20:15 Baso % (Auto) 0.9 % 01/26/23 20:15 Neut # (Auto) 4.02 10^3/uL (1.8-7.7) 01/26/23 20:15 Lymph # (Auto) 1.0 10^3/uL (0.8-4.8) 01/26/23 20:15 Berks # (Auto) 0.7 10^3/uL (0.2-0.9) 01/26/23 20:15 Eos # (Auto) 0.1 10^3/uL (0.0-0.8) 01/26/23 20:15 Baso # (Auto) 0.1 10^3/uL (0.0-0.1) 01/26/23 20:15 Nucleated RBC % (auto) 0 % 01/26/23 20:15 Nucleated RBCs # 0.0 /100WBC 01/26/23 20:15 Sodium 131 mmol/L (136-145) L 01/26/23 20:15 Potassium 4.2 mmol/L (3.5-5.1) 01/26/23 20:15 Chloride 98 mmol/L (98-107) 01/26/23 20:15 Carbon Dioxide 20 mmol/L (22-29) L 01/26/23 20:15 Anion Gap 17.2 (5-19) 01/26/23 20:15 BUN 15 mg/dL (6-20) 01/26/23 20:15 Creatinine 1.2 mg/dL (0.7-1.2) 01/26/23 20:15 GFR Calculation 63.1 mL/min (90-130) L 01/26/23 20:15 Glucose 303 mg/dL (65-115) H 01/26/23 20:15 Calculated Osmolality 284 mOsm/kg (285-295) L 01/26/23 20:15 Calcium 8.0 mg/dL (8.5-10.5) L 01/26/23 20:15 Total Bilirubin 0.4 mg/dL (0.15-1.2) 01/26/23 20:15 AST 22 U/L (0-40) 01/26/23 20:15 ALT 28 U/L (0-41) 01/26/23 20:15 Alkaline Phosphatase 75 U/L (40-130) 01/26/23 20:15 Troponin T Baseline 14 ng/L (0-15) 01/26/23 20:15 Troponin T 120 Minute 14.02 ng/L (0-15) 01/26/23 21:57 Delta Troponin T 0.02 ABS# (0-10) 01/26/23 21:57 Total Protein 6.4 g/dL (6.6-8.7) L 01/26/23 20:15 Albumin 4.0 g/dL (3.5-5.2) 01/26/23 20:15 Globulin 2.4 g/dL (1.3-4.6) 01/26/23 20:15 Discharge Plan Discharge Patient Disposition: Home Clinical Impression: Atypical chest pain Condition: Stable Prescriptions: No Action hydrocodone-acetaminophen 10-325 mg tablet 1 tab PO .5 times a day 30 Days Qty: 150 0RF Rx Instructions: fill on or after 11/04/21 ([facility]) blood-glucose meter [OneTouch Verio Flex meter] [facility] See Rx Instructions .Route Qty: 1 0RF Rx Instructions: As directed OneTouch Verio test strips Strip See Rx Instructions .ROUTE .COMPLEX Qty: 100 11RF Dose Instruction: USE TO TEST THREE TIMES DAILY Rx Instructions: USE TO TEST THREE TIMES DAILY (DME) Toe Filler See Rx Instructions .Route .MEDSUPPLY Qty: 1 0RF Rx Instructions: As directed by Ying ([facility]) Diabetic Shoes See Rx Instructions .Route .MEDSUPPLY Qty: 1 0RF Rx Instructions: Diabetic shoes with inserts with toe lift Victoza 3-Bjorn 0.6 mg/0.1 mL (18 mg/3 mL) pen injector 1.8 mg SUBCUT QAM Qty: 9 5RF mupirocin 2 % ointment 1 applic topical BID Qty: 22 2RF furosemide 20 mg tablet 20 - 40 mg PO DAILY PRN (Reason: edema) Qty: 30 0RF Rx Instructions: MUST have follow-up for further refills metoprolol succinate 50 mg tablet extended release 24 hr 50 mg PO DAILY@0900 Qty: 90 3RF metformin 500 mg tablet extended release 24hr 500 mg PO DAILY Qty: 90 0RF rosuvastatin 10 mg tablet See Rx Instructions .ROUTE .COMPLEX Qty: 30 2RF Dose Instruction: TAKE 1 TABLET BY MOUTH EVERY DAY AT BEDTIME (8PM) Rx Instructions: TAKE 1 TABLET BY MOUTH EVERY DAY AT BEDTIME (8PM) ropinirole 1 mg tablet See Rx Instructions .ROUTE .COMPLEX Qty: 30 1RF Dose Instruction: TAKE 1 TABLET BY MOUTH EVERY DAY AT 9AM FOR 30 DAYS FOR PAIN Rx Instructions: TAKE 1 TABLET BY MOUTH EVERY DAY AT 9AM FOR 30 DAYS FOR PAIN Levemir FlexTouch U-100 Insuln 100 unit/mL (3 mL) insulin pen See Rx Instructions .ROUTE .COMPLEX Qty: 15 1RF Dose Instruction: INJECT 55 UNITS SUBCUTANEOUSLY EVERY DAY AT 9AM Rx Instructions: INJECT 55 UNITS SUBCUTANEOUSLY EVERY DAY AT 9AM insulin aspart U-100 [Novolog FlexPen U-100 Insulin] 100 unit/mL (3 mL) insulin pen 20 unit SUBCUT TID Qty: 15 2RF Rx Instructions: Please dispense needle tips as well potassium chloride 10 mEq tablet extended release See Rx Instructions .ROUTE .COMPLEX Qty: 90 2RF Dose Instruction: TAKE 1-2 TABLETS BY MOUTH EVERY THREE DAYS Rx Instructions: TAKE 1-2 TABLETS BY MOUTH EVERY THREE DAYS pantoprazole 40 mg tablet,delayed release (DR/EC) See Rx Instructions .ROUTE .COMPLEX Qty: 30 2RF Dose Instruction: TAKE 1 TABLET BY MOUTH EVERY DAY AT 9AM Rx Instructions: TAKE 1 TABLET BY MOUTH EVERY DAY AT 9AM aspirin 81 mg tablet,delayed release (DR/EC) See Rx Instructions .ROUTE .COMPLEX Qty: 90 0RF Hold Instructions: Resume on 10/29/21. Dose Instruction: TAKE 1 TABLET BY MOUTH EVERY DAY AT 9AM Rx Instructions: TAKE 1 TABLET BY MOUTH EVERY DAY AT 9AM lisinopril 40 mg tablet See Rx Instructions .ROUTE .COMPLEX Qty: 90 0RF Dose Instruction: TAKE 1 TABLET BY MOUTH EVERY DAY AT 9AM Rx Instructions: TAKE 1 TABLET BY MOUTH EVERY DAY AT 9AM (DME) pen needle, diabetic [TechLITE Pen Needle] 32 gauge x 1/4 needle See Rx Instructions .ROUTE .COMPLEX Qty: 100 3RF Dose Instruction: FOR USE WITH INSULIN UP TO 5 TIMES DAILY Rx Instructions: FOR USE WITH INSULIN UP TO 5 TIMES DAILY Discharge Orders: Discharge ED (Routine); Ordered 01/26/23 Ordered By: Derik Miranda Referrals: Cindy Hsu DO [Primary Care Provider] - Discharge Diet: Regular Discharge Activity: Increase activity as tolerated Patient Instructions: Chest Pain (ED), Noncardiac Chest Pain (ED) Activity Restrictions/Additional Instructions: Follow-up with medical provider as directed in the next 5 to 7 days for r eevaluation. Continue taking all home medications as previously prescribed. Return to the ER or your medical provider if condition worsens. Please read and understand discharge instructions. Thank you for choosing [facility] for your healthcare needs today. Please realize this is an emergency room and that we are providing you with a medical screening exam and this may not be complete and all inclusive of all the testing and or work up that you may need to determine your ailment or severity of your illness. It is very important that you follow up as instructed or that you return to the Emergency Department should you have concerns or if your condition changes or worsens in any way. Coding Level of Care Code ED Traveling Missionary for Davina Whelan
[2023-01-26] MEDS: morphine 4 mg/mL SDV 1 mL IVP (21:31)
--- NOTE | 2023-01-26 21:34 | ECG_ITS ---
[facility] Test Date: 2023-01-26 Pat Name: Braxton Rosales Department: Room: Gender: Male Ultrasound Coordinator: : 1970 Requested By: Derik Miranda Order Number: [id number] Mccullough MD: Blaine Mattson M.D. Measurements Intervals [place] Rate: 78 P: 6 MA: 170 QRS: -36 QRSD: 83 T: 41 QT: 335 QTc: 384 Interpretive Statements SINUS RHYTHM LEFT AXIS DEVIATION [QRS AXIS < -30] PATTERN CONSISTENT WITH PULMONARY DISEASE Compared to ECG 01/26/2023 19:27:05 No significant changes Electronically Signed On 01-27-2023 10:33:31 CDT by Blaine Mattson M.D. [id number]
[2023-01-26] MEDS: aspirin 81 mg Chew Tablet 243 MG PO (21:51)
[2023-01-26 22:22] LABS: Troponin 5 2HR 14.02 ng/L (0-15)
[2023-01-26] MEDS: hyDRALAzine 25 mg Tablet PO (22:42)
[2023-01-26 22:50] LABS: Troponin 5 2HR Delta 0.02 ABS# (0-10)
== END 2023-01-26 23:00 | disposition home or self-care (01) ==
PROVIDERS: Emergency Provider Physician Assistant; PCP Family Medicine
DX: R07.89 Other chest pain (principal); Z79.4 Long term (current) use of insulin; Z79.84 Long term (current) use of oral hypoglycemic drugs; Z79.82 Long term (current) use of aspirin; I11.0 Hypertensive heart disease with heart failure; I50.9 Heart failure, unspecified; E78.5 Hyperlipidemia, unspecified; E11.9 Type 2 diabetes mellitus without complications
CPT/HCPCS: 36415; 71045; 80053; 84484; 85025; 93005; 96374; 99285; J2270

== ENCOUNTER → 2023-02-06 08:04 | Outpatient (BNVA) | payer MEDICAID, SELFPAY | PROVIDERS: PCP Family Medicine; Visit Provider Dermatology | DX: C44.41 Basal cell carcinoma of skin of scalp and neck (principal); C44.219 Basal cell carcinoma of skin of left ear and external auricular canal | CPT/HCPCS: 12032; 13152; 17311; 17312 ==

== ENCOUNTER → 2023-02-15 09:48 | Outpatient (BNVA) | payer MEDICAID, SELFPAY | PROVIDERS: PCP Family Medicine; Visit Provider Family Medicine | DX: E11.49 Type 2 diabetes mellitus with other diabetic neurological complication (principal) | CPT/HCPCS: 80053; 83036 ==

== ENCOUNTER 2023-03-16 01:53 | Emergency (ER) | payer MEDICAID, SELFPAY ==
[2023-03-16 02:00] VITALS: BP 213/84; PULSE 74; RESP 18; TEMP 36.6; O2SAT 99; BMI 35.9
[2023-03-16 02:03] VITALS: BP 213/84; RESP 16; O2SAT 94
--- NOTE | 2023-03-16 02:03 | ED_ITS ---
HPI - Weakness General: Chief complaint: Weakness Stated complaint: hypoglycemia Time Seen by Provider: 03/16/23 02:03 History of Present Illness: Mr. Rosales is a 52-year-old gentleman with insulin-dependent diabetes presenting to the emergency department for episode of generalized weakness and sweatiness concerning for low blood sugar. Reports being in his baseline health earlier today. He noted that his blood sugar after eating was 300 so he took 15 units of insulin. He laid down for a while and woke up with cold sweats and feeling generalized weakness. He noted his blood sugar to be in the 80s and ate a candy bar however it continued to drop. Currently feels improving like his blood sugar is normalizing. At baseline blood sugars in the 200s range. Denies infectious symptoms or any focality of weakness. No other specific changes in health, exacerbating, or alleviating factors identified. Onset (ago): minute(s) Relieving factors: other (time) Review of Systems General: Reports: 10 or more systems reviewed and unremarkable except in HPI and below PFSH ED PFSH: Medical History Acute renal failure Amputated great toe Cellulitis and abscess of right lower extremity Cellulitis of leg, right CHF (congestive heart failure) Chronic pain in right foot Diabetes mellitus with polyneuropathy Diverticulosis Dyslipidemia Dyslipidemia Encounter for long-term use of opiate analgesic Essential (primary) hypertension Hallux rigidus, right foot History of amputation of left great toe History of amputation of right great toe History of malignant melanoma History of nonmelanoma skin cancer Non-pressure chronic ulcer of other part of right foot with necrosis of bone Restless leg syndrome Shoulder pain Sleep apnea in adult Type 2 diabetes mellitus with other diabetic neurological complication Wound dehiscence, surgical Surgical History H/O hernia repair History of amputation of lesser toe of right foot History of ankle surgery History of colonoscopy 2018 History of inguinal hernia repair, bilateral 1970,1977 Hx of amputation of lesser toe Left foot big toe and second toe 01/21/20 at [facility] [place] Dr. Leal Status post PICC central line placement Family History Mother Cancer Other Dyslipidemia Denies family history of Diabetes CAD (coronary artery disease) Clotting disorder Dementia Hyperlipidemia Psychiatric illness Chronic kidney disease (CKD) Suicide Anesthesia complication Bleeding disorder Family history of premature coronary artery disease Lung disease Hypertension Stroke Social History Smoking and tobacco status: never smoked Second hand smoke exposure: No Alcohol intake: former Desire information about alcohol rehabilitation?: No Counseling given: No Substance/Drug Use: never Adopted: No Caregiver/support person: Yes Lives independently: Yes Household members: spouse and significant other Housing: House Marital status: Life Partner Number of children: 0 Highest education level completed: High School Graduate service: Yes Current occupational status: retired Pets and animals: Yes Do you think of yourself as: Straight/Heterosexual Current gender identity: Male Yolande/Uatsdin: None Agree to transfusion: Yes Financial difficulty paying for basics: Somewhat Hard Physical Exam Const: COMMON NORMALS: patient oriented x3 and alert GENERAL APPEARANCE: cooperative and well developed HENMT: COMMON NORMALS: normocephalic and atraumatic HEAD & SCALP: normocephalic and atraumatic Eye: COMMON NORMALS: conjunctivae normal CONJUNCTIVA: Yes conjunctivae normal SCLERA: sclerae normal Neck/C-Spine: COMMON NORMALS: supple GENERAL: Yes trachea midline Resp: COMMON NORMALS: normal respiratory effort and clear to auscultation bilaterally EFFORT & INSPECTION: Yes able to speak in complete sentences AUSCULTATION: clear to auscultation bilaterally Cardio: COMMON NORMALS: regular rate and regular rhythm RATE: regular rate RHYTHM: regular rhythm GI: COMMON NORMALS: Soft to palpation PALPATION: Yes Soft to palpation and No Tenderness to palpation present (GI) Extremity: GENERAL: Yes normal exam except as noted and No edema Neuro: COMMON NORMALS: patient oriented x3, CN's II-XII intact bilaterally, moves all extremities, no focal motor deficits and no sensory deficits noted SENSORIUM/ORIENTATION: Yes alert and No Orientation impaired Psych: COMMON NORMALS: mental status grossly normal and Normal thought process present THOUGHT PROCESS: Normal thought process present Course Vital Signs: Vital signs: Vital Signs Temperature 98 F 03/16/23 03:00 Pulse Rate 74 03/16/23 03:00 Respiratory Rate 16 03/16/23 03:00 Blood Pressure 213/84 03/16/23 03:00 Pulse Oximetry 94 03/16/23 03:00 MDM - Weakness Medical Decision Making 52-year-old gentleman presenting with abnormal feeling post insulin. He ate candy bars prior to arrival and feels improved from initial fairly severe shakiness and weakness. No focality. Patient is nontoxic. Blood glucose repeat continues to be improved. Clinically patient feels well and declines further evaluation. The results of ED evaluation were discussed with the patient including prescriptions and/or symptomatic cares (if applicable) including appropriate and responsible use, followup plan, and return precautions. The patient verbalized understanding and felt safe for discharge. Medical Records I reviewed the patient's medical records. Lab Data I reviewed the patient's lab results. Laboratory Results POC Glucose 180 mg/dL (70-110) H 03/16/23 02:53 Discharge Plan Discharge Patient Disposition: Home Clinical Impression: Accidental overdose of insulin Condition: Stable Prescriptions: No Action hydrocodone-acetaminophen 10-325 mg tablet 1 tab PO .5 times a day 30 Days Qty: 150 0RF Rx Instructions: fill on or after 11/04/21 (DME) blood-glucose meter [[facility] Flex [facility] See Rx Instructions .Route Qty: 1 0RF Rx Instructions: As directed OneTouch Verio test strips Strip See Rx Instructions .ROUTE .COMPLEX Qty: 100 11RF Dose Instruction: USE TO TEST THREE TIMES DAILY Rx Instructions: USE TO TEST THREE TIMES DAILY (DME) Toe Filler See Rx Instructions .Route .MEDSUPPLY Qty: 1 0RF Rx Instructions: As directed by Ying (DME) Diabetic Shoes See Rx Instructions .Route .MEDSUPPLY Qty: 1 0RF Rx Instructions: Diabetic shoes with inserts with toe lift mupirocin 2 % ointment 1 applic topical BID Qty: 22 2RF Victoza 3-Bjorn 0.6 mg/0.1 mL (18 mg/3 mL) pen injector 1.2 mg SUBCUT QAM Qty: 9 5RF Rx Instructions: Please dispense needle tips as well furosemide 20 mg tablet 20 - 40 mg PO DAILY PRN (Reason: edema) Qty: 30 0RF Rx Instructions: MUST have follow-up for further refills Levemir FlexTouch U-100 Insuln 100 unit/mL (3 mL) insulin pen See Rx Instructions .ROUTE .COMPLEX Qty: 15 1RF Dose Instruction: INJECT 55 UNITS SUBCUTANEOUSLY EVERY DAY AT 9AM Rx Instructions: INJECT 55 UNITS SUBCUTANEOUSLY EVERY DAY AT 9AM insulin aspart U-100 [Novolog FlexPen U-100 Insulin] 100 unit/mL (3 mL) insulin pen 20 unit SUBCUT TID Qty: 15 2RF Rx Instructions: Please dispense needle tips as well potassium chloride 10 mEq tablet extended release See Rx Instructions .ROUTE .COMPLEX Qty: 90 2RF Dose Instruction: TAKE 1-2 TABLETS BY MOUTH EVERY THREE DAYS Rx Instructions: TAKE 1-2 TABLETS BY MOUTH EVERY THREE DAYS lisinopril 40 mg tablet See Rx Instructions .ROUTE .COMPLEX Qty: 90 0RF Dose Instruction: TAKE 1 TABLET BY MOUTH EVERY DAY AT 9AM Rx Instructions: TAKE 1 TABLET BY MOUTH EVERY DAY AT 9AM aspirin 81 mg tablet,delayed release (DR/EC) See Rx Instructions .ROUTE .COMPLEX Qty: 90 2RF Hold Instructions: Resume on 10/29/21. Dose Instruction: TAKE 1 TABLET BY MOUTH EVERY DAY AT 9AM Rx Instructions: TAKE 1 TABLET BY MOUTH EVERY DAY AT 9AM ropinirole 1 mg tablet See Rx Instructions .ROUTE .COMPLEX Qty: 90 1RF Dose Instruction: TAKE 1 TABLET BY MOUTH EVERY DAY AT 9AM FOR 30 DAYS FOR PAIN Rx Instructions: TAKE 1 TABLET BY MOUTH EVERY DAY AT 9AM FOR 30 DAYS FOR PAIN (DME) pen needle, diabetic [TechLITE Pen Needle] 32 gauge x 1/4 needle See Rx Instructions .ROUTE .COMPLEX Qty: 100 3RF Dose Instruction: FOR USE WITH INSULIN UP TO 5 TIMES DAILY Rx Instructions: FOR USE WITH INSULIN UP TO 5 TIMES DAILY rosuvastatin 10 mg tablet See Rx Instructions .ROUTE .COMPLEX Qty: 30 2RF Dose Instruction: TAKE 1 TABLET BY MOUTH EVERY DAY AT BEDTIME (8PM) Rx Instructions: TAKE 1 TABLET BY MOUTH EVERY DAY AT BEDTIME (8PM) pantoprazole 40 mg tablet,delayed release (DR/EC) See Rx Instructions .ROUTE .COMPLEX Qty: 30 2RF Dose Instruction: TAKE 1 TABLET BY MOUTH EVERY DAY AT 9AM Rx Instructions: TAKE 1 TABLET BY MOUTH EVERY DAY AT 9AM metoprolol succinate 50 mg tablet extended release 24 hr See Rx Instructions .ROUTE .COMPLEX Qty: 90 1RF Dose Instruction: TAKE 1 TABLET BY MOUTH EVERY DAY AT 9:00AM Rx Instructions: TAKE 1 TABLET BY MOUTH EVERY DAY AT 9:00AM Discharge Orders: Discharge ED (Routine); Ordered 03/16/23 Ordered By: Dario Norman Referrals: Cindy Hsu, [Primary Care Provider] - Discharge Diet: Diabetic Discharge Activity: Resume usual activity Patient Instructions: What to Do if Your Blood Sugar is Low (ED) Activity Restrictions/Additional Instructions: Thank you for visiting the emergency department. You were seen and evaluated for episode of low blood sugar which improved based on your eating prior to arrival. Please continue your medication regimen. Watch your blood sugar closely over the next 24 hours. Follow-up with your primary care provider. Return to the emergency department for recurrent low blood sugar or anything else that you are concerned about and feel needs emergency department evaluation. Coding Level of Care Code ED Facilities Maintenance Supervisor for Davina Whelan
[2023-03-16 02:05] LABS: Glucose Point of Care 113 mg/dL (70-110)
[2023-03-16 02:56] LABS: Glucose Point of Care 180 mg/dL (70-110)
[2023-03-16 03:00] VITALS: BP 213/84; PULSE 74; RESP 16; TEMP 36.6; O2SAT 94
== END 2023-03-16 03:00 | disposition home or self-care (01) ==
PROVIDERS: Emergency Provider Emergency Medicine; PCP Family Medicine
DX: T38.3X1A Poisoning by insulin and oral hypoglycemic [antidiabetic] drugs, accidental (unintentional), initial encounter (principal)
CPT/HCPCS: 36416; 82962; 99283

== ENCOUNTER 2023-03-28 12:34 | Outpatient (CLI) | payer MEDICAID, SELFPAY ==
--- NOTE | 2023-03-28 | ECG_ITS ---
[facility] Test Date: 2023-03-28 Pat Name: Braxton Rosales Department: Room: Gender: Male Coil Placer: : 1970 Requested By: Cindy Hsu Order Number: [id number] Mccullough MD: Blaine Mattson M.D. Interpretive Statements NAME OF STUDY: TREADMILL STRESS TEST INDICATION: [Chest Pain, ] EXERCISE DATA: The patient was exercised by Dario protocol. Baseline heart rate was 72 beats per minute. Baseline blood pressure was 156/88 millimeters of mercury. Target heart rate was 141 beats per minute. Maximum heart rate achieved was 131, which was 92% of the target heart rate. Maximum blood pressure was 217/76 millimeters of mercury. Total exercise time was 6 minutes and 41 seconds. Maximum METs achieved was 10.2. The reason for ending the test was maximal effort achieved. The patient complained of shortness of breath during the stress test, which then resolved at the end of the test. ELECTROCARDIOGRAM: BASELINE: Showed sinus rhythm, normal axis, no significant ST-T changes at the baseline noted. [] EXERCISE: At the peak exercise level, [] No significant ST-T changes suggestive of ischemia noted. [] RECOVERY: During the recovery period, heart rate dropped appropriately. No significant ST-T changes in the recovery suggestive of ischemia noted. [] CONCLUSION: 1. Exercise capacity is good. 2. Heart rate response was suboptimal. 3. Blood pressure response was hypertensive. 4. Symptoms not suggestive of ischemia. 5. Stress test is indeterminate to rule out ischemia as target heart rate could not be achieved. Electronically Signed On 04-06-2023 15:36:52 CDT by Blaine Mattson M.D. [id number]
[2023-03-28 12:49] VITALS: BMI 35.9
[2023-03-28 13:17] VITALS: BP 176/88; PULSE 82
== END 2023-03-28 12:35 | disposition home or self-care (01) ==
LOC: CDL 12:34
PROVIDERS: PCP Family Medicine; Visit Provider Family Medicine
DX: R07.9 Chest pain, unspecified (principal)
CPT/HCPCS: 93017

== ENCOUNTER → 2023-04-24 08:31 | Outpatient (BNVA) | payer MEDICAID, SELFPAY | PROVIDERS: PCP Family Medicine; Visit Provider Podiatrist Foot & Ankle Surgery | DX: E11.49 Type 2 diabetes mellitus with other diabetic neurological complication (principal); Z89.432 Acquired absence of left foot; Z79.4 Long term (current) use of insulin | CPT/HCPCS: 99214 ==

== ENCOUNTER → 2023-05-17 09:36 | Outpatient (BNVA) | payer MEDICAID, SELFPAY | PROVIDERS: PCP Family Medicine; Visit Provider Family Medicine | DX: E11.49 Type 2 diabetes mellitus with other diabetic neurological complication (principal); I50.32 Chronic diastolic (congestive) heart failure; G47.00 Insomnia, unspecified | CPT/HCPCS: 80053; 83036 ==

== ENCOUNTER → 2023-07-24 08:08 | Outpatient (BNVA) | payer MEDICAID, SELFPAY | PROVIDERS: PCP Family Medicine; Visit Provider Podiatrist Foot & Ankle Surgery | DX: E11.49 Type 2 diabetes mellitus with other diabetic neurological complication (principal); Z89.432 Acquired absence of left foot; Z79.4 Long term (current) use of insulin | CPT/HCPCS: 99213 ==

== ENCOUNTER → 2023-09-04 12:57 | Outpatient (BNVA) | payer MEDICAID, SELFPAY | PROVIDERS: PCP Family Medicine; Visit Provider Dermatology | DX: L82.1 Other seborrheic keratosis (principal); Z08 Encounter for follow-up examination after completed treatment for malignant neoplasm; Z85.828 Personal history of other malignant neoplasm of skin; L57.0 Actinic keratosis; L81.4 Other melanin hyperpigmentation | CPT/HCPCS: 17000; 99213 ==

== ENCOUNTER → 2023-10-24 14:56 | Outpatient (BNVA) | payer MEDICAID, SELFPAY | PROVIDERS: PCP Family Medicine; Visit Provider Podiatrist Foot & Ankle Surgery | DX: E11.49 Type 2 diabetes mellitus with other diabetic neurological complication (principal); Z89.432 Acquired absence of left foot; Z79.4 Long term (current) use of insulin | CPT/HCPCS: 99213 ==

== ENCOUNTER → 2023-12-04 08:39 | Outpatient (BNVA) | payer MEDICAID, SELFPAY | PROVIDERS: PCP Family Medicine; Visit Provider Family Medicine | DX: E11.9 Type 2 diabetes mellitus without complications (principal); R35.1 Nocturia; E11.49 Type 2 diabetes mellitus with other diabetic neurological complication | CPT/HCPCS: 80053; 80061; 82043; 83036; 83721; 84153 ==

== ENCOUNTER → 2024-03-11 09:00 | Outpatient (BNVA) | payer MEDICAID, SELFPAY ==
[2023-12-28 12:54] VITALS: BP 153/84; BMI 37.5
== END ==
PROVIDERS: PCP Family Medicine; Visit Provider Family Medicine
DX: E11.49 Type 2 diabetes mellitus with other diabetic neurological complication (principal); Z13.6 Encounter for screening for cardiovascular disorders
CPT/HCPCS: 80053; 80061; 83036; 83721; 85025

== ENCOUNTER → 2024-03-27 07:21 | Outpatient (BNVA) | payer MEDICAID, SELFPAY ==
[2023-12-28 12:54] VITALS: BP 153/84; BMI 37.5
== END ==
PROVIDERS: PCP Family Medicine; Visit Provider Podiatrist Foot & Ankle Surgery
DX: E11.49 Type 2 diabetes mellitus with other diabetic neurological complication (principal); L97.521 Non-pressure chronic ulcer of other part of left foot limited to breakdown of skin; E11.621 Type 2 diabetes mellitus with foot ulcer; Z79.4 Long term (current) use of insulin; Z79.84 Long term (current) use of oral hypoglycemic drugs
CPT/HCPCS: 99213

== ENCOUNTER → 2024-05-07 07:49 | Outpatient (BNVA) | payer MEDICAID, SELFPAY ==
[2023-12-28 12:54] VITALS: BP 153/84; BMI 37.5
== END ==
PROVIDERS: PCP Family Medicine; Visit Provider Podiatrist Foot & Ankle Surgery
DX: E11.49 Type 2 diabetes mellitus with other diabetic neurological complication (principal); L97.521 Non-pressure chronic ulcer of other part of left foot limited to breakdown of skin; Z89.432 Acquired absence of left foot; Z79.4 Long term (current) use of insulin
CPT/HCPCS: 99213

== ENCOUNTER → 2024-06-10 07:33 | Outpatient (BNVA) | payer MEDICAID, SELFPAY ==
[2023-12-28 12:54] VITALS: BP 153/84; BMI 37.5
== END ==
PROVIDERS: PCP Family Medicine; Visit Provider Family Medicine
DX: E11.49 Type 2 diabetes mellitus with other diabetic neurological complication (principal)
CPT/HCPCS: 80053; 80061; 83036; 83721

== ENCOUNTER 2024-07-16 06:48 | Outpatient (CLI) | payer MEDICAID, SELFPAY ==
[2023-12-28 12:54] VITALS: BP 153/84; BMI 37.5
--- NOTE | 2024-07-16 07:00 | USCV_ITS ---
Braxton Rosales Age: 54 Gender: M : 1970 Exam Date: 07/16/2024 07:22 Ordering Phys: Tito Puentes MD Technologist: Exam [place] [facility] Indication: cp BP: 150 / 80 HR: 59 Rhythm: Sinus Technical Quality: Adequate MEASUREMENTS (Male / Female) Normal Values 2D ECHO LV Diastolic Diameter PLAX 3.9 cm 4.2 - 5.9 / 3.9 - 5.3 cm IVS Diastolic Thickness 1.2 cm 0.6 - 1.0 / 0.6 - 0.9 cm IVS Systolic Thickness 2.1 cm LVPW Diastolic Thickness 1.4 cm 0.6 - 1.0 / 0.6 - 0.9 cm LVPW Systolic Thickness 2.0 cm LVOT Diameter 2.1 cm LV Ejection Fraction 2D Teich 62.4 % LV Ejection Fraction MOD 4C 72.0 % LV Ejection Fraction MOD 2C 67.5 % LV Ejection Fraction 2C AL 67.7 % LA Diameter 3.9 cm RA Systolic Volume 4C AL 46.3 ml RA Systolic Volume 4C MOD 44.8 ml Aorta at Sinotubular Diameter 2.8 cm M-MODE LA Ao Ratio MM 1.4 AV Cusp Separation MM 2.6 cm DOPPLER AV Peak Velocity 127.0 cm/s LVOT Peak Velocity 99.0 cm/s AV Area Cont Eq vti 2.5 cm squared AV Area Cont Eq pk 2.6 cm squared MV Peak Velocity 95.0 cm/s MV Area PHT 3.6 cm squared Mitral E to A Ratio 0.9 TR Peak Velocity 152.0 cm/s TR Peak Gradient 9.2 mmHg TV Peak E Velocity 124.0 cm/s Right Atrial Pressure 3.0 mmHg Pulmonary Artery Systolic Pressu 12.2 mmHg PV Peak Velocity 127.0 cm/s FINDINGS Left Ventricle Normal left ventricular cavity size. Normal left ventricular systolic function. Left ventricular ejection fraction is estimated at 60 %. Grade I/IV diastolic dysfunction (abnormal relaxation filling pattern), normal to mildly elevated filling pressures. Right Ventricle The right ventricle is normal in size and function. Right Atrium The right atrium is normal in size. Left Atrium The left atrium is normal in size. Mitral Valve Mildly thickened mitral valve. No mitral valve stenosis. Trace mitral valve regurgitation. Aortic Valve Structurally normal aortic valve without significant sclerosis or stenosis. There is no aortic regurgitation. Tricuspid Valve Structurally normal tricuspid valve without significant stenosis or regurgitation. Pulmonary artery systolic pressure is normal. Pulmonic Valve Structurally normal pulmonic valve without significant stenosis. There is no pulmonic regurgitation. Pericardium Normal pericardium without effusion. Aorta Normal ascending aorta dimension. IVC The inferior vena cava appears normal. CONCLUSIONS Normal left ventricular cavity size. Normal left ventricular systolic function. Left ventricular ejection fraction is estimated at 60 %. Grade I/IV diastolic dysfunction (abnormal relaxation filling pattern), normal to mildly elevated filling pressures. Mildly thickened mitral valve. No mitral valve stenosis. Trace mitral valve regurgitation. There is no pericardial effusion. Pulmonary artery systolic pressure is within normal limits. Right atrial pressure is around 5 mm of mercury. Essie Alba MD (Electronically Signed) Final Date: 19 July 2024 13:35 S
== END 2024-07-16 06:49 | disposition home or self-care (01) ==
LOC: RAD 06:49
PROVIDERS: PCP Family Medicine; Visit Provider Family Medicine
DX: I50.32 Chronic diastolic (congestive) heart failure (principal)
CPT/HCPCS: 80053; 80061; 83036; 83721; 93306

== ENCOUNTER → 2024-09-15 09:27 | Outpatient (BNVA) | payer MEDICAID, SELFPAY ==
[2024-08-06 11:35] VITALS: BP 142/64; BMI 38.4
== END ==
PROVIDERS: PCP Family Medicine; Visit Provider Podiatrist Foot & Ankle Surgery
DX: M79.671 Pain in right foot (principal); S92.501B Displaced unspecified fracture of right lesser toe(s), initial encounter for open fracture; X58.XXXA Exposure to other specified factors, initial encounter
CPT/HCPCS: 28515; 73630

== ENCOUNTER → 2024-09-22 07:50 | Outpatient (BNVA) | payer MEDICAID, SELFPAY ==
[2024-08-06 11:35] VITALS: BP 142/64; BMI 38.4
== END ==
PROVIDERS: PCP Family Medicine; Visit Provider Podiatrist Foot & Ankle Surgery
DX: M79.671 Pain in right foot; E11.621 Type 2 diabetes mellitus with foot ulcer; L97.514 Non-pressure chronic ulcer of other part of right foot with necrosis of bone; S92.501D Displaced unspecified fracture of right lesser toe(s), subsequent encounter for fracture with routine healing; X58.XXXD Exposure to other specified factors, subsequent encounter; E11.49 Type 2 diabetes mellitus with other diabetic neurological complication; L03.115 Cellulitis of right lower limb; M20.41 Other hammer toe(s) (acquired), right foot; M86.171 Other acute osteomyelitis, right ankle and foot; Z79.4 Long term (current) use of insulin
CPT/HCPCS: 11044; 73630

== ENCOUNTER 2024-09-23 10:26 | Day surgery (SDC) | payer MEDICAID, SELFPAY ==
[2024-08-06 11:35] VITALS: BP 142/64; BMI 38.4
[2024-09-23] VITALS (7 sets, daily range): BP systolic 121–134; BP diastolic 68–85; PULSE 54–60; RESP 17–20; TEMP 36.1–36.7; O2SAT 93–96; BMI 33.2
[2024-09-23 11:00] LABS: Glucose Point of Care 346 mg/dL (70-110)
[2024-09-23] MEDS: sodium chloride 0.9% 1,000 ML 30 ML IV (11:05)
--- NOTE | 2024-09-23 11:09 | ANES.PREANE2 ---
Documented by User: Jeremy FerreraDO 09/23/24 11:11 Pre-Anesthetic Assessment Height/Weight: Height 5 ft 9 in Weight 225 lb Temp Pulse Resp BP Pulse Ox O2 Del Method 98.1 F 60 17 134/85 96 Room Air 09/23/24 10:51 09/23/24 10:51 09/23/24 10:51 09/23/24 10:51 09/23/24 10:51 09/23/24 10:51 Preop Diagnosis: Osteomyelitis right foot Operation Date: 09/23/24 12:10 Proposed Procedures p Amputation Toe/s right third toe and right fourth toe(Right) - Ernesto Cali, BRITTNEEM Was Beta Jeff taken within 24 hours: N/A Was Clonidine taken within 24 hours: N/A Last intake: Intake Last Liquid Date 09/22/24 Last Liquid Time 22:00 Last Solid Date 09/22/24 Last Solid Time 22:00 Anesthetic Plan Anesthesia: General Other: No prior issues with anesthesia NPO since yesterday History of type 2 diabetes on insulin. BS 346 today Hypertension on HCTZ and lisinopril and metoprolol. Preop BP 134/85 Labs ordered Plan for MAC anesthetic with local via surgeon Medications/Allergies Home Medications Medication Instructions Recorded Confirmed Last Taken Type blood-glucose meter (OneTouch #1 ea 05/18/22 09/22/24 Unknown Rx Verio Flex Meter) Toe Filler #1 ea 09/12/22 09/22/24 Unknown Rx Diabetic Shoes #1 ea 12/11/23 09/22/24 Unknown Rx pen needle, diabetic 32 gauge x #100 ea 03/19/24 09/22/24 Unknown Rx 5/32 (TechLITE Pen Needle) cam walker #1 ea 03/27/24 09/22/24 Unknown Rx hydroxyzine HCl 50 mg tablet 50 mg PO QID PRN insomnia #120 tabs 05/20/24 09/22/24 09/21/24 Rx liraglutide 0.6 mg/0.1 mL (18 mg/3 1.8 mg (0.3 mL) SUBCUT QAM #9 mL 06/10/24 09/23/24 08/24/24 Rx mL) subcutaneous pen injector (Victoza 3-Bjorn) insulin glargine 100 unit/mL (3 45 unit (0.45 mL) SUBCUT BID #15 mL 06/18/24 09/22/24 09/22/24 Rx mL) subcutaneous pen (Lantus Solostar U-100 Insulin) lisinopril 40 mg tablet 40 mg PO DAILY #90 tabs 07/10/24 09/22/24 09/22/24 Rx doxepin 100 mg capsule 200 mg (2 x 100 mg) PO .HS #60 caps 08/14/24 09/22/24 09/21/24 Rx hydrochlorothiazide 12.5 mg tablet 12.5 mg PO DAILY #90 tabs 08/14/24 09/22/24 09/22/24 Rx blood sugar diagnostic (OneTouch #100 strips 09/01/24 09/22/24 Unknown Rx Verio test strips) aspirin 81 mg tablet,delayed 81 mg PO DAILY 09/22/24 09/23/24 09/22/24 History release ciprofloxacin HCl 500 mg tablet 500 mg PO BID 7 days #14 tabs 09/22/24 09/23/24 09/22/24 Rx (Cipro) clindamycin HCl 300 mg capsule 300 mg PO TID 7 days #21 caps 09/22/24 09/23/24 09/23/24 Rx fenofibrate nanocrystallized 145 145 mg PO DAILY 09/22/24 09/22/24 09/22/24 History mg tablet hydrocodone 10 mg-acetaminophen 1 tab PO Q6H PRN Pain 09/22/24 09/22/24 09/22/24 History 325 mg tablet insulin aspart U-100 100 unit/mL 20 unit SUBCUT TID 09/22/24 09/22/24 09/22/24 History (3 mL) subcutaneous pen (Novolog FlexPen U-100 Insulin aspart) metoprolol succinate 50 mg 50 mg PO BEDTIME 09/22/24 09/23/24 09/22/24 History tablet,extended release 24 hr Allergies Allergy/AdvReac Type Severity Reaction Status Date / Time No Known Allergies Allergy Verified 09/22/24 08:02 Current Medications Generic Name Dose Route Start Last Admin Trade Name Freq PRN Reason Stop Dose Admin Sodium Chloride 1,000 mls @ 30 mls/hr 09/23/24 10:45 09/23/24 11:05 Sodium Chloride 0.9% IV 09/24/24 10:44 30 mls/hr .Q24H ELISE Administration PFSH Anesthesia Medical History (Updated 09/22/24 @ 08:14 by Ernesto Cali DPM) Cellulitis of right foot Psychiatric care History of nonmelanoma skin cancer History of malignant melanoma Chronic pain in right foot Diabetes mellitus with polyneuropathy Cellulitis and abscess of right lower extremity Non-pressure chronic ulcer of other part of right foot with necrosis of bone Dyslipidemia Acute renal failure Cellulitis of leg, right Hallux rigidus, right foot Sleep apnea in adult Restless leg syndrome Dyslipidemia Encounter for long-term use of opiate analgesic Shoulder pain Diverticulosis Type 2 diabetes mellitus with other diabetic neurological complication Essential (primary) hypertension CHF (congestive heart failure) Amputated great toe Wound dehiscence, surgical Surgical History History of amputation of right great toe History of amputation of left great toe History of colonoscopy 2018 History of inguinal hernia repair, bilateral 1970,1977 History of ankle surgery Hx of amputation of lesser toe Left foot big toe and second toe 01/21/20 [place] [facility] [place] Status post PICC central line placement H/O hernia repair History of amputation of lesser toe of right foot Family History Mother Cancer Other Dyslipidemia Denies family history of Diabetes CAD (coronary artery disease) Clotting disorder Dementia Hyperlipidemia Psychiatric illness Chronic kidney disease (CKD) Suicide Anesthesia complication Bleeding disorder Family history of premature coronary artery disease Lung disease Hypertension Stroke Social History Smoking and tobacco/nicotine status: former use of tobacco/nicotine Second hand smoke exposure: Yes Alcohol intake: former Substance/Drug Use: former Adopted: No Caregiver/support person: No Lives independently: Yes Household members: none Housing: House Marital status: Single Number of children: 0 Number of grandchildren: 0 Highest education level completed: High School Graduate service: Yes status: Discharged status details: discharged with cause branch: [place] branch details: discharged after 3 years Assignments: Outside [facility] ([facility]) Known or Potential Exposure: Post Traumatic Stress Disorder (PTSD) Current occupational status: disabled Pets and animals: Yes (Sassy) Pets & animals: dog(s) Leisure activites: games and other Leisure activities details: watch TV Sexually active: No Do you think of yourself as: Straight/Heterosexual Current gender identity: Male Yolande/Mandaen: None Special yolande needs: No Agree to transfusion: Yes Data Anesthesia 09/23/24 10:58 Cardiac Studies: Echocardiogram 07/16/24 Echocardiogram Ultrasound 01/10/21 Documented by User: Tyree Keenan Jr, INDUSTRIAL RELATIONS COUNSELOR 09/23/24 11:22 Pre-Anesthetic Assessment Airway Submandibular: within normal limits Cervical ROM: within normal limits Mallampati: Class III Dentition: false CV/HEM Hypertension Hepatic Hepatitis Metabolic Diabetes Mellitus Neuropsych Anxiety and Depression Medications/Allergies Home Medications Medication Instructions Recorded Confirmed Last Taken Type blood-glucose meter (OneTouch #1 ea 05/18/22 09/22/24 Unknown Rx Verio Flex Meter) Toe Filler #1 ea 09/12/22 09/22/24 Unknown Rx Diabetic Shoes #1 ea 12/11/23 09/22/24 Unknown Rx pen needle, diabetic 32 gauge x #100 ea 03/19/24 09/22/24 Unknown Rx 5/32 (TechLITE Pen Needle) cam walker #1 ea 03/27/24 09/22/24 Unknown Rx hydroxyzine HCl 50 mg tablet 50 mg PO QID PRN insomnia #120 tabs 05/20/24 09/22/24 09/21/24 Rx liraglutide 0.6 mg/0.1 mL (18 mg/3 1.8 mg (0.3 mL) SUBCUT QAM #9 mL 06/10/24 09/23/24 08/24/24 Rx mL) subcutaneous pen injector (Victoza 3-Bjorn) insulin glargine 100 unit/mL (3 45 unit (0.45 mL) SUBCUT BID #15 mL 06/18/24 09/22/24 09/22/24 Rx mL) subcutaneous pen (Lantus Solostar U-100 Insulin) lisinopril 40 mg tablet 40 mg PO DAILY #90 tabs 07/10/24 09/22/24 09/22/24 Rx doxepin 100 mg capsule 200 mg (2 x 100 mg) PO .HS #60 caps 08/14/24 09/22/24 09/21/24 Rx hydrochlorothiazide 12.5 mg tablet 12.5 mg PO DAILY #90 tabs 08/14/24 09/22/24 09/22/24 Rx blood sugar diagnostic (OneTouch #100 strips 09/01/24 09/22/24 Unknown Rx Verio test strips) aspirin 81 mg tablet,delayed 81 mg PO DAILY 09/22/24 09/23/24 09/22/24 History release ciprofloxacin HCl 500 mg tablet 500 mg PO BID 7 days #14 tabs 09/22/24 09/23/24 09/22/24 Rx (Cipro) clindamycin HCl 300 mg capsule 300 mg PO TID 7 days #21 caps 09/22/24 09/23/24 09/23/24 Rx fenofibrate nanocrystallized 145 145 mg PO DAILY 09/22/24 09/22/24 09/22/24 History mg tablet hydrocodone 10 mg-acetaminophen 1 tab PO Q6H PRN Pain 09/22/24 09/22/24 09/22/24 History 325 mg tablet insulin aspart U-100 100 unit/mL 20 unit SUBCUT TID 09/22/24 09/22/24 09/22/24 History (3 mL) subcutaneous pen (Novolog FlexPen U-100 Insulin aspart) metoprolol succinate 50 mg 50 mg PO BEDTIME 09/22/24 09/23/24 09/22/24 History tablet,extended release 24 hr Allergies Allergy/AdvReac Type Severity Reaction Status Date / Time No Known Allergies Allergy Verified 09/22/24 08:02 [facility] Anesthesia Medical History (Updated 09/22/24 @ 08:14 by Ernesto Cali DPM) Cellulitis of right foot Psychiatric care History of nonmelanoma skin cancer History of malignant melanoma Chronic pain in right foot Diabetes mellitus with polyneuropathy Cellulitis and abscess of right lower extremity Non-pressure chronic ulcer of other part of right foot with necrosis of bone Dyslipidemia Acute renal failure Cellulitis of leg, right Hallux rigidus, right foot Sleep apnea in adult Restless leg syndrome Dyslipidemia Encounter for long-term use of opiate analgesic Shoulder pain Diverticulosis Type 2 diabetes mellitus with other diabetic neurological complication Essential (primary) hypertension CHF (congestive heart failure) Amputated great toe Wound dehiscence, surgical Surgical History History of amputation of right great toe History of amputation of left great toe History of colonoscopy 2018 History of inguinal hernia repair, bilateral 1970,1977 History of ankle surgery Hx of amputation of lesser toe Left foot big toe and second toe 01/21/20 [place] [facility] [place] Le[place] Status post PICC central line placement H/O hernia repair History of amputation of lesser toe of right foot Family History Mother Cancer Other Dyslipidemia Denies family history of Diabetes CAD (coronary artery disease) Clotting disorder Dementia Hyperlipidemia Psychiatric illness Chronic kidney disease (CKD) Suicide Anesthesia complication Bleeding disorder Family history of premature coronary artery disease Lung disease Hypertension Stroke Social History Smoking and tobacco/nicotine status: former use of tobacco/nicotine Second hand smoke exposure: Yes Alcohol intake: former Substance/Drug Use: former Adopted: No Caregiver/support person: No Lives independently: Yes Household members: none Housing: House Marital status: Single Number of children: 0 Number of grandchildren: 0 Highest education level completed: High School Graduate service: Yes status: Discharged status details: discharged with cause branch: [place] branch details: discharged after 3 years Assignments: Outside [employer] ([employer]) Known or Potential Exposure: Post Traumatic Stress Disorder (PTSD) Current occupational status: disabled Pets and animals: Yes (Sassy) Pets & animals: dog(s) Leisure activites: games and other Leisure activities details: watch TV Sexually active: No Do you think of yourself as: Straight/Heterosexual Current gender identity: Male Yolande/Mandaen: None Special yolande needs: No Agree to transfusion: Yes Data Anesthesia 09/23/24 10:58 Cardiac Studies: Echocardiogram 07/16/24 Echocardiogram Ultrasound 01/10/21
[2024-09-23 11:30] LABS: Anion Gap 15.9 (5-19); Blood Urea Nitrogen 32 mg/dL (6-20); Calcium 9.4 mg/dL (8.5-10.5); Carbon Dioxide 24 mmol/L (22-29); Chloride 101 mmol/L (98-107); Creatinine Clr Calc Pharmacy 69.3693; Glomerular Filtration Rate 52.4 mL/min (90-130); Glucose 333 mg/dL (65-115); Osmolality Calculated 302 mOsm/kg (285-295); Potassium 4.9 mmol/L (3.5-5.1); Sodium 136 mmol/L (136-145)
--- NOTE | 2024-09-23 11:30 | W.PM.OPSUD ---
Surgery/Procedure H&P Update DATE OF PROCEDURE: September 23, 2024 DATE H&P PERFORMED: 09/22/24 H&P UPDATE INFORMATION: I have reviewed H&P completed within last 30 days, I have examined patient prior to procedure and No changes to prior documentation PREOP DIAGNOSIS: Osteomyelitis right foot PLANNED PROCEDURE: Operation Date: 09/23/24 12:10 Proposed Procedures p Amputation Toe/s right third toe and right fourth toe(Right) - Ernesto Cali DPM
[2024-09-23] MEDS: insulin regular-human 100 units/1 mL 20 UNIT IVP (11:36)
[2024-09-23] MEDS: ceFAZolin 2,000 mg SDV 2000 MG IVP (11:40)
[2024-09-23] MEDS: lidocaine 1% 10 ML INJ 30 ML XX (12:03)
--- NOTE | 2024-09-23 12:20 | P.OP_ITS ---
Operative Report Date of procedure: September 23, 2024 Pre-op diagnosis: Acute osteomyelitis right foot Hammertoe deformity right foot History of great toe amputation right foot History of second toe amputation right foot History of fifth ray amputation right foot Post-op diagnosis: Same Post-op findings: Devitalized bone right third toe Procedure done: Right third toe amputation. CPT code 76596 Right fourth toe amputation. CPT code 93553 Implants: 3-0 Vicryl, skin lanny Pathology: Right third and fourth toe sent to pathology for permanent Surgeon: Ernesto Cali DPM Director Of Development: Jossue Estimated blood loss: 10 10 IV fluids: See intraoperative documentation Urine output: None Complications: none Brief History: Open fracture with wound probing to bone and surrounding cellulitis right foot associated to the third toe he only has a fourth toe remaining at this time he has a history of amputation of the great toe, second toe and fifth toe. Patient wishing to proceed with amputation for source control to prevent ascending infection to the foot and does not want to be left with just a fourth toe he also has a deformity there and believes that it would be a source of new wound he would like to proceed with right third and fourth toe amputation outpatient a t this time he is not sick, will do clindamycin and ciprofloxacin sent to his pharmacy electronically this morning, x-ray taken right foot 3 view see radiology report. Betadine wet-to-dry and offload with cam boot planning on outpatient amputation of the right third and fourth toes tomorrow at noon. I reviewed at length with the patient, the risks, potential complications, benefits, alternatives, expectations, and typical outcomes associated with the surgery. The risks and potential complications were explained in detail, including but not limited to infection, wound dehiscence or soft tissue complications, bleeding and hematoma, chronic edema, neuritis or nerve damage producing numbness or chronic pain, CRPS, failure to relieve pain or worsening pain, thick / painful / unsightly scar, limited motion / stiffness, malposition, delayed union, malunion, or nonunion, fracture, reaction to implants, anesthetic complications, venous thromboembolism, and deformity recurrence. I discussed t he notion of no regrets with the patient as it pertains to complications and outcomes. The patient seemed to understand the nature of the proposed care and required convalescence. They asked appropriate questions, answered to their satisfaction. They are aware no guarantees can be made as to a satisfactory outcome and they understand there may be other possible unforeseen complications or outcomes not listed here that will be treated accordingly if they arise. There were no written or implied guarantees given to the patient. They gave informed consent to proceed. Procedure: Under mild sedation the patient was brought to the operating room and remained on the gurney in supine position. A timeout was performed. Anesthesia was then administered by the anesthesia service. Local anesthesia was injected by myself consisting of 20 cc of 0.5% Marcaine plain in a right third and fourth ray block fashion. Well-padded pneumatic tourniquet was applied to the right ankle. The right lower extremity was scrubbed, prepped and draped utilizing normal aseptic technique. No Esmarch was utilized. Tourniquet was inflated to 250 mmHg and attention directed to the right third toe which is noted to have a wound probing directly to bone that was devitalized with poor density and color was off li and soft with surrounding cellulitis encompassing the entire right second toe. Of note patient has a past medical history of right hallux amputation, right second toe amputation and right fifth toe amputation his last remaining toes of the third and fourth and the fourth toe has a nonreducible sagittal plane dominant hammertoe contracture. For this reason he did not want to be left with just his fourth toe remaining especially because of its deformity and the decision was made by the patient that he would like to have the right third and fourth toe amputated for today's procedure. Utilizing #15 blade an incision was made full-thickness through bone circumferentially about the right third metatarsal phalange joint with care taken to preserve skin flap adequate for closure in the right third toe was disarticulated sharply through its metatarsal phalangeal joint with a viable third metatarsal head visualized and palpated. Third toe was passed from the operative field and will be sent to pathology for permanent. The incision was irrigated with saline solution and no further devitalized bone or soft tissue was visualized. The incision was irrigated with saline solution and closed in a layered fashion with deep layers reapproximated with 3-0 Vicryl and skin with lanny. Attention was then directed to the right fourth toe with a new fresh blade a full-thickness incision down to bone circumferentially about the right fourth toe was performed maintaining skin flaps adequate for closure, right fourth toe was sharply disarticulated through the metatarsal phalangeal joint and passed her operative field to be sent to pathology for permanent. Incision was irrigated with saline solution, extensor and flexor tendons were retracted and transected and all bleeders ligated and cauterized as necessary. The incision was then closed with deep tissue reapproximated with 3-0 Vicryl and skin with lanny. The incision was then dressed with Adaptic, sterile 4 x 4's, Kerlix and Juan wrap followed by application of a cam boot. Tourniquet was deflated and a hyperemic response is noted to the amputation stump of the right foot. Patient tolerated the procedure and anesthesia well and was transferred to the PACU with vital signs stable and vascular status intact. Following a period of postoperative monitoring he will be discharged home without home care instructions and scheduled follow-up.
[2024-09-23 12:31] LABS: Glucose Point of Care 200 mg/dL (70-110)
--- NOTE | 2024-09-23 12:39 | PC.NURSE ---
1235 - Dr Blackwell notified of blood sugar at 200 - no new orders reci'd
--- NOTE | 2024-09-23 13:10 | ANE.PACU2 ---
Inpatient post-anesthesia follow up: Airway intact: Yes Vital signs: Temperature 97.8 F Pulse Rate 57 Respiratory Rate 18 Blood Pressure 132/75 Pulse Oximetry 95 Oxygen Delivery Me thod Room Air Oxygen Flow Rate Fraction of Inspir ed Oxygen Hydration adequate: Yes Nausea and vomiting: No Pain level: 1 Mental status: Baseline
--- NOTE | 2024-09-23 13:23 | SUR.PHASEII ---
1305 d/c instructions given and pt stated that he doesn't remember if he has crutches or not at home,offered patient to call after he got home that i could order crutches from HOME if needed, pt verbalized understanding
== END 2024-09-23 13:10 | disposition home or self-care (01) ==
PROVIDERS: Student in an Organized Health Care Education/Training Program; PCP Family Medicine; Visit Provider Podiatrist Foot & Ankle Surgery
PROC: (CPT 28820; principal; 2024-09-23 12:00)
DX: M86.171 Other acute osteomyelitis, right ankle and foot (principal); M20.41 Other hammer toe(s) (acquired), right foot; E11.42 Type 2 diabetes mellitus with diabetic polyneuropathy; Z79.4 Long term (current) use of insulin; Z79.82 Long term (current) use of aspirin; E78.5 Hyperlipidemia, unspecified; Z79.891 Long term (current) use of opiate analgesic; I11.0 Hypertensive heart disease with heart failure; I50.9 Heart failure, unspecified; Z87.891 Personal history of nicotine dependence
CPT/HCPCS: 28820 ×2; 36416; 80048; 82962; 88305; 88311; J0690; J1815; J2250; J2704; J3010; J7030

== ENCOUNTER → 2024-09-30 14:10 | Outpatient (BNVA) | payer MEDICAID, SELFPAY ==
[2024-08-06 11:35] VITALS: BP 142/64; BMI 38.4
== END ==
PROVIDERS: PCP Family Medicine; Visit Provider Podiatrist Foot & Ankle Surgery
DX: E11.49 Type 2 diabetes mellitus with other diabetic neurological complication (principal); M86.171 Other acute osteomyelitis, right ankle and foot; T81.31XA Disruption of external operation (surgical) wound, not elsewhere classified, initial encounter; Z91.199 Patient's noncompliance with other medical treatment and regimen due to unspecified reason; Z89.421 Acquired absence of other right toe(s); Y83.8 Other surgical procedures as the cause of abnormal reaction of the patient, or of later complication, without mention of misadventure at the time of the procedure; Z79.4 Long term (current) use of insulin
CPT/HCPCS: 87070; 87075; 87205; 99213

== ENCOUNTER → 2024-10-06 13:37 | Outpatient (BNVA) | payer MEDICAID, SELFPAY ==
[2024-08-06 11:35] VITALS: BP 142/64; BMI 38.4
== END ==
PROVIDERS: PCP Family Medicine; Visit Provider Podiatrist Foot & Ankle Surgery
DX: E11.49 Type 2 diabetes mellitus with other diabetic neurological complication (principal); M86.171 Other acute osteomyelitis, right ankle and foot; Z89.429 Acquired absence of other toe(s), unspecified side; T81.31XA Disruption of external operation (surgical) wound, not elsewhere classified, initial encounter; Z91.199 Patient's noncompliance with other medical treatment and regimen due to unspecified reason; Z89.421 Acquired absence of other right toe(s); Y83.8 Other surgical procedures as the cause of abnormal reaction of the patient, or of later complication, without mention of misadventure at the time of the procedure
CPT/HCPCS: 99213

== ENCOUNTER 2024-10-10 11:38 | Outpatient (CLI) | payer MEDICAID, SELFPAY ==
[2024-08-06 11:35] VITALS: BP 142/64; BMI 38.4
[2024-10-10 12:12] LABS: Estmated Average Glucose 237; Hemoglobin A1C 9.9 % (4.0-6.0)
[2024-10-10 12:19] LABS: Alanine Aminotransferase 12 U/L (0-41); Albumin Level 4.1 g/dL (3.5-5.2); Alkaline Phosphatase 44 U/L (40-130); Anion Gap 12.8 (5-19); Aspartate Amino Transferase 12 U/L (0-40); Blood Urea Nitrogen 34 mg/dL (6-20); Calcium 9.3 mg/dL (8.5-10.5); Carbon Dioxide 27 mmol/L (22-29); Chloride 100 mmol/L (98-107); Globulin 2.8 g/dL (1.3-4.6); Glomerular Filtration Rate 48.4 mL/min (90-130); Glucose 174 mg/dL (65-115); Osmolality Calculated 292 mOsm/kg (285-295); Potassium 4.8 mmol/L (3.5-5.1); Sodium 135 mmol/L (136-145); Total Bilirubin 0.3 mg/dL (0.15-1.2); Total Protein 6.9 g/dL (6.6-8.7)
== END 2024-10-10 11:39 | disposition home or self-care (01) ==
LOC: LAB 11:39
PROVIDERS: PCP Family Medicine; Visit Provider Family Medicine
DX: E11.49 Type 2 diabetes mellitus with other diabetic neurological complication (principal)
CPT/HCPCS: 36415; 80053; 83036

== ENCOUNTER → 2024-10-14 08:07 | Outpatient (BNVA) | payer MEDICAID, SELFPAY ==
[2024-08-06 11:35] VITALS: BP 142/64; BMI 38.4
== END ==
PROVIDERS: PCP Family Medicine; Visit Provider Podiatrist Foot & Ankle Surgery
DX: Z98.890 Other specified postprocedural states (principal); E11.49 Type 2 diabetes mellitus with other diabetic neurological complication; M86.171 Other acute osteomyelitis, right ankle and foot; T81.31XD Disruption of external operation (surgical) wound, not elsewhere classified, subsequent encounter; Z91.199 Patient's noncompliance with other medical treatment and regimen due to unspecified reason; Z89.421 Acquired absence of other right toe(s); Y83.8 Other surgical procedures as the cause of abnormal reaction of the patient, or of later complication, without mention of misadventure at the time of the procedure; Z79.4 Long term (current) use of insulin
CPT/HCPCS: 99213

== ENCOUNTER → 2024-10-28 13:29 | Outpatient (BNVA) | payer MEDICAID, SELFPAY ==
[2024-08-06 11:35] VITALS: BP 142/64; BMI 38.4
== END ==
PROVIDERS: PCP Family Medicine; Visit Provider Podiatrist Foot & Ankle Surgery
DX: E11.49 Type 2 diabetes mellitus with other diabetic neurological complication (principal); M86.171 Other acute osteomyelitis, right ankle and foot; Z89.432 Acquired absence of left foot; Z89.421 Acquired absence of other right toe(s); Z89.422 Acquired absence of other left toe(s); Z89.411 Acquired absence of right great toe; Z89.412 Acquired absence of left great toe; Z79.4 Long term (current) use of insulin
CPT/HCPCS: 99213

== ENCOUNTER 2024-12-03 13:34 | Emergency (ER) | payer MEDICAID, SELFPAY ==
[2024-08-06 11:35] VITALS: BP 142/64; BMI 38.4
[2024-12-03 13:35] VITALS: BP 171/86; PULSE 89; RESP 16; TEMP 36.4; O2SAT 94; BMI 35.9
[2024-12-03 13:44] LABS: Glucose Point of Care 234 mg/dL (70-110)
[2024-12-03 13:46] VITALS: BP 171/86; RESP 18; O2SAT 92
[2024-12-03 13:49] LABS: Basophils # 0.1 10^3/uL (0.0-0.1); Basophils % 0.5 %; Eosinophils # 0.8 10^3/uL (0.0-0.8); Eosinophils % 7.5 %; Hematocrit 43.4 % (37-53); Lymphocytes # 0.6 10^3/uL (0.8-4.8); Mean Corpuscular HGB Conc 33.2 g/dL (30-55); Mean Corpuscular Hemoglobin 27.4 pg (27-33); Mean Corpuscular Volume 82.5 fl (82-101); Mean Platelet Volume 9.7 fL (7.4-10.4); Monocytes # 0.5 10^3/uL (0.2-0.9); Monocytes % 4.1 %; Neutrophils # 9.12 10^3/uL (1.8-7.7); Neutrophils % 82.4 %; Nucleated Red Blood Cells % 0 %; Platelet Count 311 10^3/cmm (157-399); Red Blood Count 5.26 10^6/uL (3.85-5.65); Red Cell Distribution Width 12.7 % (12.1-15.1); White Blood Count 11.06 10^3/uL (3.29-11.43)
[2024-12-03 14:19] LABS: Alanine Aminotransferase 13 U/L (0-41); Albumin Level 4.1 g/dL (3.5-5.2); Alkaline Phosphatase 55 U/L (40-130); Aspartate Amino Transferase 14 U/L (0-40); Blood Urea Nitrogen 28 mg/dL (6-20); Calcium 9.9 mg/dL (8.5-10.5); Carbon Dioxide 26 mmol/L (22-29); Chloride 93 mmol/L (98-107); Globulin 3.6 g/dL (1.3-4.6); Glomerular Filtration Rate 48.4 mL/min (90-130); Glucose 258 mg/dL (65-115); Osmolality Calculated 290 mOsm/kg (285-295); Sodium 133 mmol/L (136-145); Total Bilirubin 0.4 mg/dL (0.15-1.2); Total Protein 7.7 g/dL (6.6-8.7)
--- NOTE | 2024-12-03 14:20 | ED_ITS ---
HPI - Weakness 2 General: Chief complaint: Weakness Stated complaint: Hypoglycemia Time Seen by Provider: 12/03/24 13:37 History of Present Illness: 54-year-old male presents emergency room via EMS with report of hypoglycemia his blood sugar is down in the 30s he ate a bunch of candy by the time he arrived here his blood sugars 234 he is awake alert has no other symptoms. Patient is on insulin for his diabetes he has peripheral vascular disease and is lost all of his toes. He has had flulike symptoms last couple of days subjective fever Associated symptoms: Denies chest pain, chills, dysuria or fever(s) Review of Systems 2 Const: Denies: fever(s) or chills Card: Denies: chest pain Resp: Denies: dyspnea GI: Denies: abdominal pain : Denies: dysuria, urinary frequency or urinary urgency Musc: Denies: neck pain or back pain Skin/Breast: Denies: rash PFSH ED 2 PFSH: Medical History Cellulitis of right foot Psychiatric care History of nonmelanoma skin cancer History of malignant melanoma Chronic pain in right foot Diabetes mellitus with polyneuropathy Cellulitis and abscess of right lower extremity Non-pressure chronic ulcer of other part of right foot with necrosis of bone Dyslipidemia Acute renal failure Cellulitis of leg, right Hallux rigidus, right foot Sleep apnea in adult Restless leg syndrome Dyslipidemia Encounter for long-term use of opiate analgesic Shoulder pain Diverticulosis Type 2 diabetes mellitus with other diabetic neurological complication Essential (primary) hypertension CHF (congestive heart failure) Amputated great toe Wound dehiscence, surgical Surgical History History of amputation of right great toe History of amputation of left great toe History of colonoscopy 2018 History of inguinal hernia repair, bilateral 1970,1977 History of ankle surgery Hx of amputation of lesser toe Left foot big toe and second toe 01/21/20 at [facility] Dr. Leal Status post PICC central line placement H/O hernia repair History of amputation of lesser toe of right foot Family History Mother Cancer Other Dyslipidemia Denies family history of Diabetes CAD (coronary artery disease) Clotting disorder Dementia Hyperlipidemia Psychiatric illness Chronic kidney disease (CKD) Suicide Anesthesia complication Bleeding disorder Family history of premature coronary artery disease Lung disease Hypertension Stroke Social History Smoking and tobacco/nicotine status: former use of tobacco/nicotine Second hand smoke exposure: Yes Alcohol intake: former Substance/Drug Use: former Adopted: No Caregiver/support person: No Lives independently: Yes Household members: none Housing: House Marital status: Single Number of children: 0 Number of grandchildren: 0 Highest education level completed: High School Graduate service: Yes status: Discharged status details: discharged with cause branch: [employer] branch details: discharged after 3 years Assignments: Outside [facility] [employer] [facility] [employer] ([employer]) Known or Potential Exposure: Post Traumatic Stress Disorder (PTSD) Current occupational status: disabled Pets and animals: Yes (Sassy) Pets & animals: dog(s) Leisure activites: games and other Leisure activities details: watch TV Sexually active: No Do you think of yourself as: Straight/Heterosexual Current gender identity: Male Yolande/Congregational: None Special yolande needs: No Agree to transfusion: Yes Physical Exam 2 Const: COMMON NORMALS: no acute distress GENERAL APPEARANCE: cooperative and comfortable ORIENTATION/CONSCIOUSNESS: Yes awake, Yes oriented to person, Yes oriented to place and Yes oriented to time HENMT: COMMON NORMALS: normocephalic, atraumatic and hearing grossly normal bilaterally HEAD & SCALP: normocephalic and atraumatic Resp: COMMON NORMALS: normal respiratory effort, No retractions, No use of accessory muscles and clear to auscultation bilaterally AUSCULTATION: clear to auscultation bilaterally Cardio: COMMON NORMALS: regular rate, regular rhythm and No murmurs present (Cardio) RATE: regular rate RHYTHM: regular rhythm GI: COMMON NORMALS: Soft to palpation and No hepatosplenomegaly present A USCULTATION: Yes normoactive bowel sounds PALPATION: Yes Soft to palpation, No Tenderness to palpation present (GI), No Guarding due to palpation present (GI) and Yes No hepatosplenomegaly present Extremity: COMMON NORMALS: normal to inspection, capillary refill normal, no clubbing, cyanosis or edema, no calf tenderness and no pedal edema Neuro: SENSORIUM/ORIENTATION: Yes oriented to person, Yes oriented to place and Yes oriented to time Skin: COMMON NORMALS: no rashes or lesions noted GENERAL SKIN EXAM: no rashes or lesions noted Course 2 Vital Signs: Vital signs: Vital Signs Temperature 97.6 F 12/03/24 13:35 Pulse Rate 89 12/03/24 13:35 Respiratory Rate 18 12/03/24 13:46 Blood Pressure 171/86 12/03/24 13:46 Pulse Oximetry 92 12/03/24 13:46 Oxygen Delivery Me thod Room Air 12/03/24 13:46 MDM - Weakness Medical Decision Making Glucose recovered by the time patient arrived from the food he has eaten. Blood sugars remained stable he is feeling well relatively well in terms of his blood sugar he does have flulike symptoms last couple days based on his report of symptoms suspect he does have influenza he is otherwise tolerating it well. Discharge home can follow-up with his primary care doctor as needed. Encourage patient to monitor his blood sugar closely the next couple of days. Medical Records I reviewed the patient's medical records. Lab Data I reviewed the patient's lab results. 12/03/24 13:40 12/03/24 13:40 Laboratory Results WBC 11.06 10^3/uL (3.29-11.43) 12/03/24 13:40 RBC 5.26 10^6/uL (3.85-5.65) 12/03/24 13:40 Hgb 14.40 g/dL (11.27-16.99) 12/03/24 13:40 Hct 43.4 % (37-53) 12/03/24 13:40 MCV 82.5 fl (82-101) 12/03/24 13:40 MCH 27.4 pg (27-33) 12/03/24 13:40 MCHC 33.2 g/dL (30-55) 12/03/24 13:40 RDW 12.7 % (12.1-15.1) 12/03/24 13:40 Plt Count 311 10^3/cmm (157-399) 12/03/24 13:40 MPV 9.7 fL (7.4-10.4) 12/03/24 13:40 Neut % (Auto) 82.4 % 12/03/24 13:40 Lymph % (Auto) 5.0 % 12/03/24 13:40 Mellette % (Auto) 4.1 % 12/03/24 13:40 Eos % (Auto) 7.5 % 12/03/24 13:40 Baso % (Auto) 0.5 % 12/03/24 13:40 Neut # (Auto) 9.12 10^3/uL (1.8-7.7) H 12/03/24 13:40 Lymph # (Auto) 0.6 10^3/uL (0.8-4.8) L 12/03/24 13:40 Mellette # (Auto) 0.5 10^3/uL (0.2-0.9) 12/03/24 13:40 Eos # (Auto) 0.8 10^3/uL (0.0-0.8) 12/03/24 13:40 Baso # (Auto) 0.1 10^3/uL (0.0-0.1) 12/03/24 13:40 Nucleated RBC % (auto) 0 % 12/03/24 13:40 Nucleated RBCs # 0.0 /100WBC 12/03/24 13:40 Sodium 133 mmol/L (136-145) L 12/03/24 13:40 Potassium 5.0 mmol/L (3.5-5.1) 12/03/24 13:40 Chloride 93 mmol/L (98-107) L 12/03/24 13:40 Carbon Dioxide 26 mmol/L (22-29) 12/03/24 13:40 Anion Gap 19.0 (5-19) 12/03/24 13:40 BUN 28 mg/dL (6-20) H 12/03/24 13:40 Creatinine 1.5 mg/dL (0.7-1.2) H 12/03/24 13:40 GFR Calculation 48.4 mL/min (90-130) L 12/03/24 13:40 Glucose 258 mg/dL (65-115) H 12/03/24 13:40 POC Glucose 221 mg/dL (70-110) H 12/03/24 14:24 Calculated Osmolality 290 mOsm/kg (285-295) 12/03/24 13:40 Calcium 9.9 mg/dL (8.5-10.5) 12/03/24 13:40 Total Bilirubin 0.4 mg/dL (0.15-1.2) 12/03/24 13:40 AST 14 U/L (0-40) 12/03/24 13:40 ALT 13 U/L (0-41) 12/03/24 13:40 Alkaline Phosphatase 55 U/L (40-130) 12/03/24 13:40 Total Protein 7.7 g/dL (6.6-8.7) 12/03/24 13:40 Albumin 4.1 g/dL (3.5-5.2) 12/03/24 13:40 Globulin 3.6 g/dL (1.3-4.6) 12/03/24 13:40 No radiology studies performed this visit Discharge Plan Discharge Patient Disposition: Home Clinical Impression: Hypoglycemia, Influenza A Condition: Stable Prescriptions: No Action (DME) blood-glucose meter [OneTouch Verio Flex meter] Misc See Rx Instructions .Route Qty: 1 0RF Rx Instructions: As directed (DME) Toe Filler See Rx Instructions .Route .MEDSUPPLY Qty: 1 0RF Rx Instructions: As directed by [facility] [place] hydroxyzine HCl 50 mg tablet 50 mg PO QID PRN (Reason: insomnia) Qty: 120 2RF lisinopril 40 mg tablet 40 mg PO DAILY Qty: 90 2RF insulin glargine [Lantus Solostar U-100 Insulin] 100 unit/mL (3 mL) insulin pen 50 unit SUBCUT BID Qty: 30 3RF Patient Comments: insulin aspart U-100 [Novolog FlexPen U-100 Insulin] 100 unit/mL (3 mL) insulin pen 20 unit SUBCUT TID Qty: 15 3RF Rx Instructions: INJECT 20 UNITS SUBCUTANEOUSLY THREE TIMES DAILY PER SLIDING SCALE. (DME) joel walker See Rx Instructions .Route .MEDSUPPLY Qty: 1 0RF Rx Instructions: As directed hydrochlorothiazide 12.5 mg tablet 12.5 mg PO DAILY Qty: 90 1RF (DME) Diabetic Shoes with toe filler to left and right See Rx Instructions .Route .MEDSUPPLY Qty: 1 0RF Rx Instructions: Diabetic shoes made by the shoe guys (DME) Wheel Chair See Rx Instructions .Route .MEDSUPPLY Qty: 1 0RF Rx Instructions: As directed HOME- Patient is unable to get around with crutches after surgery on 09/23/24. CLINT: 3 Months (DME) OneTouch Verio test strips Strip See Rx Instructions .ROUTE .COMPLEX Qty: 100 1RF Dose Instruction: USE TO TEST THREE TIMES DAILY Rx Instructions: USE TO TEST THREE TIMES DAILY Trulicity 0.75 mg/0.5 mL pen injector 0.75 mg SUBCUT .qweekly Qty: 2 2RF Rx Instructions: Sunday aspirin 81 mg tablet,delayed release (DR/EC) 81 mg PO DAILY Qty: 90 1RF (DME) pen needle, diabetic [TechLITE Pen Needle] 32 gauge x 5/32 needle See Rx Instructions .ROUTE .COMPLEX Qty: 100 3RF Dose Instruction: FOR USE WITH INSULIN UP TO 5 TIMES DAILY Rx Instructions: FOR USE WITH INSULIN UP TO 5 TIMES DAILY meloxicam 15 mg tablet 15 mg PO DAILY PRN (Reason: inflammation and pain) doxepin 100 mg capsule 200 mg PO BEDTIME hydrocodone-acetaminophen 10-325 mg tablet 1 tab PO Q6H PRN (Reason: Pain) metoprolol succinate 50 mg tablet extended release 24 hr 50 mg PO BEDTIME fenofibrate nanocrystallized 145 mg tablet 145 mg PO DAILY Discharge Orders: Discharge ED (Routine); Ordered 12/03/24 Ordered By: Kris Waterman Referrals: Tito Puentes MD [Primary Care Provider] - Discharge Diet: Usual diet Discharge Activity: Resume usual activity Patient Instructions: Opioid Safety, Pain Management Activity Restrictions/Additional Instructions: Thank you for choosing [facility] for your healthcare needs today. It is very important that you follow up as instructed or that you return to the Emergency Department should you have concerns or if your condition changes or worsens in any way. You are seen in the emergency room this report of a low blood sugar it had recovered from the food you have eaten prior to arriving. The other labs were unremarkable. Based on your other symptoms do suspect you likely have influenza. You are outside the window of treatment with antivirals supportive cares follow-up as needed. Do recommend you monitor your blood sugar closely for the next several hours. Print Language: New Zealander Coding Level of Care Code ED Overage Shortage And Damage Clerk for Chg Fwd Related Data Home Medications ?Medication ?Instructions ?Recorded ?Confirmed fenofibrate nanocrystallized 145 145 mg PO DAILY 09/2212/03/24 mg tablet hydrocodone 10 mg-acetaminophen 1 tab PO Q6H PRN Pain 09/22/24 12/03/24 325 mg tablet metoprolol succinate 50 mg 50 mg PO BEDTIME 09/22/24 0 12/03/24 tablet,extended release 24 hr doxepin 100 mg capsule 200 mg PO BEDTIME 12/03/24 0 12/03/24 meloxicam 15 mg tablet 15 mg PO DAILY PRN inflammat ion 12/03/24 12/03/24 and pain Previous Rx's ?Medication ?Instructions ?Recorded blood-glucose meter (OneTouch #1 ea 05/18/22 Verio Flex Meter) Toe Filler #1 ea 09/12/22 cam walker #1 ea 03/27/24 hydroxyzine HCl 50 mg tablet 50 mg PO QID PRN insomnia #120 tabs 05/20/24 lisinopril 40 mg tablet 40 mg PO DAILY #90 tabs 06/16 04/07 hydrochlorothiazide 12.5 mg tablet 12.5 mg PO DAILY #9 0 tabs 08/14/24 Wheel Chair #1 ea 09/24/24 blood sugar diagnostic (OneTouch #100 strips 10/16/24 Verio test strips) aspirin 81 mg tablet,delayed 81 mg PO DAILY #90 tabs 0 10/17/24 release dulaglutide 0.75 mg/0.5 mL 0.75 mg (0.5 mL) SUBCUT .qw eekly 10/17/24 subcutaneous pen injector #2 mL ([facility]) Diabetic Shoes with toe filler to #1 ea 10/28/24 left and right insulin aspart U-100 100 unit/mL 20 unit (0.2 mL) SUBC UT TID #15 mL 11/10/24 (3 mL) subcutaneous pen (Novolog FlexPen U-100 Insulin aspart) insulin glargine 100 unit/mL (3 50 unit (0.5 mL) SUBCU T BID #30 mL 11/10/24 mL) subcutaneous pen (Lantus Solostar U-100 Insulin) pen needle, diabetic 32 gauge x #100 ea 11/11/24 (TechLITE Pen Needle) Allergies Allergy/AdvReac Type Severity Reaction Status Date / Time No Known Allergies Allergy Verified 11/10/24 12:52
[2024-12-03 14:27] LABS: Glucose Point of Care 221 mg/dL (70-110)
[2024-12-03 14:48] VITALS: BP 168/82; PULSE 88; O2SAT 98
== END 2024-12-03 14:49 | disposition home or self-care (01) ==
PROVIDERS: Emergency Provider Family Medicine; PCP Family Medicine
DX: E11.649 Type 2 diabetes mellitus with hypoglycemia without coma (principal); I11.0 Hypertensive heart disease with heart failure; I50.9 Heart failure, unspecified; E78.5 Hyperlipidemia, unspecified; Z85.820 Personal history of malignant melanoma of skin; Z85.828 Personal history of other malignant neoplasm of skin
CPT/HCPCS: 36415; 36416; 80053; 82962; 85025; 99283

== ENCOUNTER → 2024-12-31 11:39 | Outpatient (BNVA) | payer MEDICAID, SELFPAY ==
[2024-08-06 11:35] VITALS: BP 142/64; BMI 38.4
== END ==
PROVIDERS: PCP Family Medicine; Visit Provider Family Medicine
DX: E11.49 Type 2 diabetes mellitus with other diabetic neurological complication (principal)
CPT/HCPCS: 80048; 83036

== ENCOUNTER → 2025-01-19 08:18 | Outpatient (BNVA) | payer MEDICAID, SELFPAY ==
[2024-08-06 11:35] VITALS: BP 142/64; BMI 38.4
== END ==
PROVIDERS: PCP Family Medicine; Visit Provider Podiatrist Foot & Ankle Surgery
DX: E11.49 Type 2 diabetes mellitus with other diabetic neurological complication (principal); Z89.432 Acquired absence of left foot; Z89.421 Acquired absence of other right toe(s); Z89.411 Acquired absence of right great toe; Z79.4 Long term (current) use of insulin
CPT/HCPCS: 99213

== ENCOUNTER → 2025-02-11 07:56 | Outpatient (BNVA) | payer MEDICAID, SELFPAY ==
[2024-08-06 11:35] VITALS: BP 142/64; BMI 38.4
== END ==
PROVIDERS: PCP Family Medicine; Referring Provider Family Medicine; Visit Provider Internal Medicine
DX: E11.49 Type 2 diabetes mellitus with other diabetic neurological complication (principal); E78.5 Hyperlipidemia, unspecified
CPT/HCPCS: 99204

== ENCOUNTER → 2025-02-24 07:37 | Outpatient (BNVA) | payer MEDICAID, SELFPAY ==
[2024-08-06 11:35] VITALS: BP 142/64; BMI 38.4
== END ==
PROVIDERS: PCP Family Medicine; Visit Provider Podiatrist Foot & Ankle Surgery
DX: E11.621 Type 2 diabetes mellitus with foot ulcer (principal); L97.522 Non-pressure chronic ulcer of other part of left foot with fat layer exposed; E11.49 Type 2 diabetes mellitus with other diabetic neurological complication; Z89.432 Acquired absence of left foot; L03.116 Cellulitis of left lower limb; Z79.4 Long term (current) use of insulin
CPT/HCPCS: 29445; 99214

== ENCOUNTER → 2025-02-26 07:19 | Outpatient (BNVA) | payer MEDICAID, SELFPAY ==
[2024-08-06 11:35] VITALS: BP 142/64; BMI 38.4
== END ==
PROVIDERS: PCP Family Medicine; Visit Provider Podiatrist Foot & Ankle Surgery
DX: E11.49 Type 2 diabetes mellitus with other diabetic neurological complication (principal); Z89.432 Acquired absence of left foot; E11.621 Type 2 diabetes mellitus with foot ulcer; L97.522 Non-pressure chronic ulcer of other part of left foot with fat layer exposed; L03.116 Cellulitis of left lower limb
CPT/HCPCS: 29445

== ENCOUNTER → 2025-03-04 09:46 | Outpatient (BNVA) | payer MEDICAID, SELFPAY ==
[2024-08-06 11:35] VITALS: BP 142/64; BMI 38.4
== END ==
PROVIDERS: PCP Family Medicine; Visit Provider Podiatrist Foot & Ankle Surgery
DX: E11.621 Type 2 diabetes mellitus with foot ulcer (principal); L97.522 Non-pressure chronic ulcer of other part of left foot with fat layer exposed; E11.49 Type 2 diabetes mellitus with other diabetic neurological complication; Z89.432 Acquired absence of left foot; Z79.4 Long term (current) use of insulin
CPT/HCPCS: 29445

== ENCOUNTER → 2025-03-11 07:17 | Outpatient (BNVA) | payer MEDICAID, SELFPAY ==
[2024-08-06 11:35] VITALS: BP 142/64; BMI 38.4
== END ==
PROVIDERS: PCP Family Medicine; Visit Provider Podiatrist Foot & Ankle Surgery
DX: E11.621 Type 2 diabetes mellitus with foot ulcer (principal); L97.522 Non-pressure chronic ulcer of other part of left foot with fat layer exposed; E11.49 Type 2 diabetes mellitus with other diabetic neurological complication; Z89.432 Acquired absence of left foot; Z79.4 Long term (current) use of insulin
CPT/HCPCS: 29445

== ENCOUNTER → 2025-03-18 07:43 | Outpatient (BNVA) | payer MEDICAID, SELFPAY ==
[2024-08-06 11:35] VITALS: BP 142/64; BMI 38.4
== END ==
PROVIDERS: PCP Family Medicine; Visit Provider Podiatrist Foot & Ankle Surgery
DX: E11.49 Type 2 diabetes mellitus with other diabetic neurological complication (principal); E11.621 Type 2 diabetes mellitus with foot ulcer; L97.522 Non-pressure chronic ulcer of other part of left foot with fat layer exposed; Z89.432 Acquired absence of left foot; Z79.4 Long term (current) use of insulin
CPT/HCPCS: 99213

== ENCOUNTER → 2025-03-25 07:49 | Outpatient (BNVA) | payer MEDICAID, SELFPAY ==
[2024-08-06 11:35] VITALS: BP 142/64; BMI 38.4
== END ==
PROVIDERS: PCP Family Medicine; Visit Provider Podiatrist Foot & Ankle Surgery
DX: E11.621 Type 2 diabetes mellitus with foot ulcer (principal); L97.522 Non-pressure chronic ulcer of other part of left foot with fat layer exposed; E11.49 Type 2 diabetes mellitus with other diabetic neurological complication; Z89.432 Acquired absence of left foot; Z79.4 Long term (current) use of insulin
CPT/HCPCS: 99213

== ENCOUNTER → 2025-04-01 08:19 | Outpatient (BNVA) | payer OTHER, SELFPAY ==
[2024-08-06 11:35] VITALS: BP 142/64; BMI 38.4
== END ==
PROVIDERS: PCP Family Medicine; Visit Provider Podiatrist Foot & Ankle Surgery
DX: E11.621 Type 2 diabetes mellitus with foot ulcer (principal); L97.522 Non-pressure chronic ulcer of other part of left foot with fat layer exposed; E11.49 Type 2 diabetes mellitus with other diabetic neurological complication; Z89.432 Acquired absence of left foot; Z79.4 Long term (current) use of insulin
CPT/HCPCS: 29445

== ENCOUNTER → 2025-04-08 08:17 | Outpatient (BNVA) | payer MEDICAID, SELFPAY ==
[2024-08-06 11:35] VITALS: BP 142/64; BMI 38.4
== END ==
PROVIDERS: PCP Family Medicine; Visit Provider Podiatrist Foot & Ankle Surgery
DX: E11.49 Type 2 diabetes mellitus with other diabetic neurological complication (principal); Z89.432 Acquired absence of left foot; E11.621 Type 2 diabetes mellitus with foot ulcer; L97.522 Non-pressure chronic ulcer of other part of left foot with fat layer exposed; Z79.4 Long term (current) use of insulin
CPT/HCPCS: 29445

== ENCOUNTER → 2025-04-15 08:19 | Outpatient (BNVA) | payer MEDICAID, SELFPAY ==
[2024-08-06 11:35] VITALS: BP 142/64; BMI 38.4
== END ==
PROVIDERS: PCP Family Medicine; Visit Provider Podiatrist Foot & Ankle Surgery
DX: E11.621 Type 2 diabetes mellitus with foot ulcer (principal); L97.522 Non-pressure chronic ulcer of other part of left foot with fat layer exposed; E11.49 Type 2 diabetes mellitus with other diabetic neurological complication; Z89.432 Acquired absence of left foot; I10 Essential (primary) hypertension; Z79.4 Long term (current) use of insulin
CPT/HCPCS: 29445

== ENCOUNTER → 2025-04-21 07:48 | Outpatient (BNVA) | payer MEDICAID, SELFPAY ==
[2024-08-06 11:35] VITALS: BP 142/64; BMI 38.4
== END ==
PROVIDERS: PCP Family Medicine; Visit Provider Podiatrist Foot & Ankle Surgery
DX: E11.621 Type 2 diabetes mellitus with foot ulcer (principal); L97.522 Non-pressure chronic ulcer of other part of left foot with fat layer exposed; E11.49 Type 2 diabetes mellitus with other diabetic neurological complication; Z89.432 Acquired absence of left foot; I10 Essential (primary) hypertension; Z79.4 Long term (current) use of insulin
CPT/HCPCS: 29445

== ENCOUNTER → 2025-04-28 07:41 | Outpatient (BNVA) | payer MEDICAID, SELFPAY ==
[2024-08-06 11:35] VITALS: BP 142/64; BMI 38.4
== END ==
PROVIDERS: PCP Family Medicine; Visit Provider Podiatrist Foot & Ankle Surgery
DX: E11.49 Type 2 diabetes mellitus with other diabetic neurological complication (principal); E11.621 Type 2 diabetes mellitus with foot ulcer; Z89.432 Acquired absence of left foot; L97.522 Non-pressure chronic ulcer of other part of left foot with fat layer exposed; I10 Essential (primary) hypertension; Z79.4 Long term (current) use of insulin
CPT/HCPCS: 29445

== ENCOUNTER → 2025-04-29 11:06 | Outpatient (BNVA) | payer MEDICAID, SELFPAY ==
[2024-08-06 11:35] VITALS: BP 142/64; BMI 38.4
== END ==
PROVIDERS: PCP Family Medicine; Visit Provider Family Medicine
DX: E11.49 Type 2 diabetes mellitus with other diabetic neurological complication (principal)
CPT/HCPCS: 80053; 83036

== ENCOUNTER → 2025-05-05 07:42 | Outpatient (BNVA) | payer MEDICAID, SELFPAY ==
[2024-08-06 11:35] VITALS: BP 142/64; BMI 38.4
== END ==
PROVIDERS: PCP Family Medicine; Visit Provider Podiatrist Foot & Ankle Surgery
DX: E11.49 Type 2 diabetes mellitus with other diabetic neurological complication (principal); Z89.432 Acquired absence of left foot; E11.621 Type 2 diabetes mellitus with foot ulcer; L97.522 Non-pressure chronic ulcer of other part of left foot with fat layer exposed; I10 Essential (primary) hypertension; Z79.4 Long term (current) use of insulin
CPT/HCPCS: 99213

== ENCOUNTER → 2025-05-12 07:56 | Outpatient (BNVA) | payer MEDICAID, SELFPAY ==
[2024-08-06 11:35] VITALS: BP 142/64; BMI 38.4
== END ==
PROVIDERS: PCP Family Medicine; Visit Provider Podiatrist Foot & Ankle Surgery
DX: E11.49 Type 2 diabetes mellitus with other diabetic neurological complication (principal); Z89.432 Acquired absence of left foot; L97.522 Non-pressure chronic ulcer of other part of left foot with fat layer exposed; I10 Essential (primary) hypertension; E11.621 Type 2 diabetes mellitus with foot ulcer; Z79.4 Long term (current) use of insulin
CPT/HCPCS: 99213

== ENCOUNTER → 2025-05-13 08:17 | Outpatient (BNVA) | payer MEDICAID, SELFPAY ==
[2024-08-06 11:35] VITALS: BP 142/64; BMI 38.4
== END ==
PROVIDERS: PCP Family Medicine; Referring Provider Family Medicine; Visit Provider Internal Medicine
DX: E11.49 Type 2 diabetes mellitus with other diabetic neurological complication (principal); E78.5 Hyperlipidemia, unspecified
CPT/HCPCS: 99214

== ENCOUNTER → 2025-05-19 07:41 | Outpatient (BNVA) | payer MEDICAID, SELFPAY ==
[2024-08-06 11:35] VITALS: BP 142/64; BMI 38.4
== END ==
PROVIDERS: PCP Family Medicine; Visit Provider Podiatrist Foot & Ankle Surgery
DX: E11.621 Type 2 diabetes mellitus with foot ulcer (principal); L97.522 Non-pressure chronic ulcer of other part of left foot with fat layer exposed; Z89.432 Acquired absence of left foot; E11.49 Type 2 diabetes mellitus with other diabetic neurological complication; I10 Essential (primary) hypertension; Z79.4 Long term (current) use of insulin
CPT/HCPCS: 73630; 99213

== ENCOUNTER → 2025-05-26 07:32 | Outpatient (BNVA) | payer MEDICAID, SELFPAY ==
[2024-08-06 11:35] VITALS: BP 142/64; BMI 38.4
== END ==
PROVIDERS: PCP Family Medicine; Visit Provider Podiatrist Foot & Ankle Surgery
DX: E11.49 Type 2 diabetes mellitus with other diabetic neurological complication (principal); Z89.432 Acquired absence of left foot; L97.522 Non-pressure chronic ulcer of other part of left foot with fat layer exposed; I10 Essential (primary) hypertension; E11.621 Type 2 diabetes mellitus with foot ulcer; Z79.4 Long term (current) use of insulin
CPT/HCPCS: 99213

== ENCOUNTER → 2025-06-02 07:18 | Outpatient (BNVA) | payer MEDICAID, SELFPAY ==
[2024-08-06 11:35] VITALS: BP 142/64; BMI 38.4
== END ==
PROVIDERS: PCP Family Medicine; Visit Provider Podiatrist Foot & Ankle Surgery
DX: E11.621 Type 2 diabetes mellitus with foot ulcer (principal); L97.522 Non-pressure chronic ulcer of other part of left foot with fat layer exposed; E11.49 Type 2 diabetes mellitus with other diabetic neurological complication; Z89.432 Acquired absence of left foot; I10 Essential (primary) hypertension; Z79.4 Long term (current) use of insulin
CPT/HCPCS: 29445

== ENCOUNTER → 2025-06-05 13:27 | Outpatient (BNVA) | payer MEDICAID, SELFPAY ==
[2024-08-06 11:35] VITALS: BP 142/64; BMI 38.4
== END ==
PROVIDERS: PCP Family Medicine; Visit Provider Podiatrist Foot & Ankle Surgery
DX: E11.49 Type 2 diabetes mellitus with other diabetic neurological complication (principal); Z89.432 Acquired absence of left foot; E11.621 Type 2 diabetes mellitus with foot ulcer; L97.522 Non-pressure chronic ulcer of other part of left foot with fat layer exposed; I10 Essential (primary) hypertension; Z79.4 Long term (current) use of insulin
CPT/HCPCS: 29405

== ENCOUNTER → 2025-06-16 07:15 | Outpatient (BNVA) | payer MEDICAID, SELFPAY ==
[2024-08-06 11:35] VITALS: BP 142/64; BMI 38.4
== END ==
PROVIDERS: PCP Family Medicine; Visit Provider Podiatrist Foot & Ankle Surgery
DX: E11.49 Type 2 diabetes mellitus with other diabetic neurological complication (principal); Z89.432 Acquired absence of left foot; E11.621 Type 2 diabetes mellitus with foot ulcer; L97.522 Non-pressure chronic ulcer of other part of left foot with fat layer exposed; I10 Essential (primary) hypertension; L03.116 Cellulitis of left lower limb; Z79.4 Long term (current) use of insulin
CPT/HCPCS: 29445; 99214

== ENCOUNTER → 2025-06-23 07:15 | Outpatient (BNVA) | payer MEDICAID, SELFPAY ==
[2024-08-06 11:35] VITALS: BP 142/64; BMI 38.4
== END ==
PROVIDERS: PCP Family Medicine; Visit Provider Podiatrist Foot & Ankle Surgery
DX: E11.49 Type 2 diabetes mellitus with other diabetic neurological complication (principal); Z89.432 Acquired absence of left foot; E11.621 Type 2 diabetes mellitus with foot ulcer; L97.522 Non-pressure chronic ulcer of other part of left foot with fat layer exposed; I10 Essential (primary) hypertension; Z79.4 Long term (current) use of insulin
CPT/HCPCS: 29445

== ENCOUNTER → 2025-07-03 11:12 | Outpatient (BNVA) | payer MEDICAID, SELFPAY ==
[2024-08-06 11:35] VITALS: BP 142/64; BMI 38.4
== END ==
PROVIDERS: PCP Family Medicine; Visit Provider Podiatrist Foot & Ankle Surgery
DX: E11.621 Type 2 diabetes mellitus with foot ulcer (principal); L97.522 Non-pressure chronic ulcer of other part of left foot with fat layer exposed; E11.49 Type 2 diabetes mellitus with other diabetic neurological complication; Z89.432 Acquired absence of left foot; I10 Essential (primary) hypertension
CPT/HCPCS: 29445

== ENCOUNTER → 2025-07-13 07:20 | Outpatient (BNVA) | payer MEDICAID, SELFPAY ==
[2024-08-06 11:35] VITALS: BP 142/64; BMI 38.4
== END ==
PROVIDERS: PCP Family Medicine; Visit Provider Podiatrist Foot & Ankle Surgery
DX: E11.621 Type 2 diabetes mellitus with foot ulcer (principal); L97.522 Non-pressure chronic ulcer of other part of left foot with fat layer exposed; E11.49 Type 2 diabetes mellitus with other diabetic neurological complication; Z89.432 Acquired absence of left foot; Z79.4 Long term (current) use of insulin
CPT/HCPCS: 99214

== ENCOUNTER → 2025-07-16 12:45 | Outpatient (BNVA) | payer MEDICAID, SELFPAY ==
[2024-08-06 11:35] VITALS: BP 142/64; BMI 38.4
== END ==
PROVIDERS: PCP Family Medicine; Visit Provider Podiatrist Foot & Ankle Surgery
DX: E11.49 Type 2 diabetes mellitus with other diabetic neurological complication (principal); Z89.432 Acquired absence of left foot; L97.522 Non-pressure chronic ulcer of other part of left foot with fat layer exposed; E11.621 Type 2 diabetes mellitus with foot ulcer; Z79.4 Long term (current) use of insulin
CPT/HCPCS: 99214

== ENCOUNTER → 2025-07-23 07:23 | Outpatient (BNVA) | payer MEDICAID, SELFPAY ==
[2024-08-06 11:35] VITALS: BP 142/64; BMI 38.4
== END ==
PROVIDERS: PCP Family Medicine; Visit Provider Podiatrist Foot & Ankle Surgery
DX: E11.621 Type 2 diabetes mellitus with foot ulcer (principal); L97.522 Non-pressure chronic ulcer of other part of left foot with fat layer exposed; E11.49 Type 2 diabetes mellitus with other diabetic neurological complication; Z89.432 Acquired absence of left foot; Z79.4 Long term (current) use of insulin
CPT/HCPCS: 29445

== ENCOUNTER → 2025-07-29 07:20 | Outpatient (BNVA) | payer MEDICAID, SELFPAY ==
[2024-08-06 11:35] VITALS: BP 142/64; BMI 38.4
== END ==
PROVIDERS: PCP Family Medicine; Visit Provider Podiatrist Foot & Ankle Surgery
DX: E11.49 Type 2 diabetes mellitus with other diabetic neurological complication (principal); Z89.432 Acquired absence of left foot; E11.621 Type 2 diabetes mellitus with foot ulcer; L97.522 Non-pressure chronic ulcer of other part of left foot with fat layer exposed; Z79.4 Long term (current) use of insulin
CPT/HCPCS: 29445

== ENCOUNTER → 2025-08-05 07:24 | Outpatient (BNVA) | payer MEDICAID, SELFPAY ==
[2024-08-06 11:35] VITALS: BP 142/64; BMI 38.4
== END ==
PROVIDERS: PCP Family Medicine; Visit Provider Podiatrist Foot & Ankle Surgery
DX: E11.621 Type 2 diabetes mellitus with foot ulcer (principal); L97.522 Non-pressure chronic ulcer of other part of left foot with fat layer exposed; E11.49 Type 2 diabetes mellitus with other diabetic neurological complication; Z89.432 Acquired absence of left foot; Z79.4 Long term (current) use of insulin
CPT/HCPCS: 29445

== ENCOUNTER → 2025-08-12 08:02 | Outpatient (BNVA) | payer MEDICAID, SELFPAY ==
[2024-08-06 11:35] VITALS: BP 142/64; BMI 38.4
== END ==
PROVIDERS: PCP Family Medicine; Referring Provider Family Medicine; Visit Provider Internal Medicine Endocrinology, Diabetes & Metabolism
DX: E11.49 Type 2 diabetes mellitus with other diabetic neurological complication (principal); I10 Essential (primary) hypertension; E66.9 Obesity, unspecified; Z79.84 Long term (current) use of oral hypoglycemic drugs; E78.5 Hyperlipidemia, unspecified
CPT/HCPCS: 99214

== ENCOUNTER → 2025-08-19 07:32 | Outpatient (BNVA) | payer MEDICAID, SELFPAY ==
[2024-08-06 11:35] VITALS: BP 142/64; BMI 38.4
== END ==
PROVIDERS: PCP Family Medicine; Visit Provider Podiatrist Foot & Ankle Surgery
DX: E11.49 Type 2 diabetes mellitus with other diabetic neurological complication (principal); Z89.432 Acquired absence of left foot; E11.621 Type 2 diabetes mellitus with foot ulcer; L97.522 Non-pressure chronic ulcer of other part of left foot with fat layer exposed; M89.8X9 Other specified disorders of bone, unspecified site; Z79.4 Long term (current) use of insulin
CPT/HCPCS: 99213

== ENCOUNTER 2025-08-25 10:19 | Day surgery (SDC) | payer MEDICAID, SELFPAY ==
[2024-08-06 11:35] VITALS: BP 142/64; BMI 38.4
--- NOTE | 2025-08-17 15:35 | SUR.PREOP ---
5890 Spoke with patient and stated he had taken his Trulicity yesterday and Dr. Blackwell(anesthesioligist) stated that patient needed to cancel surgery and be rescheduled after being off Trulicity for at least a week. notified of this per Brianna Davenport RN. Also notified Carol(OPS [place])
[2025-08-25] VITALS (8 sets, daily range): BP systolic 100–162; BP diastolic 56–73; PULSE 60–70; RESP 16–18; TEMP 36.6–36.9; O2SAT 93–99; BMI 36.6
--- NOTE | 2025-08-25 10:27 | W.PM.OPSUD ---
Surgery/Procedure H&P Update DATE OF PROCEDURE: August 25, 2025 DATE H&P PERFORMED: 08/19/25 H&P UPDATE INFORMATION: I have reviewed H&P completed within last 30 days, I have examined patient prior to procedure, No changes to prior documentation, H&P is in [facility] EMR on date indicated and Risks and benefits of the procedure reviewed PLANNED PROCEDURE: Operation Date: 08/25/25 12:00 Proposed Procedures p Exostectomy LEFT First Metatarsal(Left) - Ernesto Cali DPM s Floating Osteotomy LEFT Second Metatarsal(Left) - Ernesto Cali DPM
--- NOTE | 2025-08-25 11:51 | ANES.PREANE2 ---
Pre-Anesthetic Assessment Height/Weight: Height 1.78 m Weight 115.666 kg Temp Pulse Resp BP Pulse Ox O2 Del Method 97.8 F 70 16 162/73 97 Room Air 08/25/25 10:44 08/25/25 10:44 08/25/25 10:44 08/25/25 10:44 08/25/25 10:44 08/25/25 10:44 Preop Diagnosis: Chronic diabetic ulcer left foot Operation Date: 08/25/25 12:00 Proposed Procedures p Exostectomy LEFT First Metatarsal(Left) - Ernesto Cali DPM s Floating Osteotomy LEFT Second Metatarsal(Left) - Ernesto Cali DPM Familial anesthetic complications: None Was Beta Jeff taken within 24 hours: N/A Was Clonidine taken within 24 hours: N/A Last intake: Intake Last Liquid Date 08/24/25 Last Liquid Time 22:30 Last Solid Date 08/24/25 Last Solid Time 22:00 Social Tobacco and No alcohol Exam alert, oriented x 3, clear to auscultation bilaterally and regular rate & rhythm Airway Mallampati: Class IV Dentition: false Comments: Comments: full coombs Pulmonary Sleep Apnea CV/HEM Congestive Heart Failure Chronic Renal Insufficiency Metabolic Diabetes Mellitus, Hyperlipidemia and Morbid Obesity Anesthetic Plan ASA status: 4 Anesthesia: MAC Risk of > 500 ml blood loss (7ml/kg in children): No Medications/Allergies Home Medications ?Medication ?Instructions ?Recorded ?Confirmed ?Last Taken ?Type Toe Filler #1 ea 09/12/22 08/20/25 Unknown Rx cam walker #1 ea 03/27/24 08/20/25 Unknown Rx hydrocodone 10 mg-acetaminophen 1 tab PO Q6H PRN Pain 09/22/24 08/25/25 08/25/25 History 325 mg tablet Diabetic Shoes with toe filler to #1 ea 10/28/24 08/20/25 Unknown Rx left and right Blood Glucose Meter #1 ea 01/23/25 08/20/25 Unknown Rx Blood Glucose Test Strips #100 ea 01/23/25 08/20/25 Unknown Rx blood-glucose,visual merchandiser,cont #1 ea 02/11/25 08/20/25 Unknown Rx (Dexcom G7 Graphic Technician) doxepin 100 mg capsule 200 mg (2 x 100 mg) PO BEDTIME #60 03/26/25 08/24/25 08/23/25 Rx caps blood-glucose sensor (Dexcom G7 #9 ea 05/04/25 08/20/25 Unknown Rx Sensor device) pen needle, diabetic 32 gauge x #100 ea 05/07/25 08/20/25 Unknown Rx (TechLITE Pen Needle) fenofibrate nanocrystallized 145 145 mg PO DAILY #90 tabs 06/16/25 08/24/25 08/23/25 Rx mg tablet metoprolol succinate 50 mg 50 mg PO BEDTIME #90 tabs 07/13/25 08/24/25 08/24/25 Rx tablet,extended release 24 hr aspirin 81 mg tablet,delayed 81 mg PO DAILY #90 tabs 07/17/25 08/24/25 08/23/25 Rx release lisinopril 40 mg tablet 40 mg PO DAILY #90 tabs 07/30/25 08/24/25 08/23/25 Rx dulaglutide 0.75 mg/0.5 mL 0.75 mg SUBCUT Q7W 08/17/25 08/24/25 08/16/25 History subcutaneous pen injector (Trulicity) insulin aspart U-100 100 unit/mL 20 unit SUBCUT TID 08/17/25 08/24/25 08/23/25 History (3 mL) subcutaneous pen (Novolog FlexPen U-100 Insulin aspart) insulin glargine 100 unit/mL (3 33 unit SUBCUT BEDTIME 08/17/25 08/25/25 08/23/25 History mL) subcutaneous pen (Lantus Solostar U-100 Insulin) hydroxyzine HCl 50 mg tablet 50 mg PO QID PRN insomnia #120 tabs 08/20/25 08/24/25 08/23/25 Rx Allergies Allergy/AdvReac Type Severity Reaction Status Date / Time No Known Allergies Allergy Verified 08/24/25 09:01 Current Medications Generic Name Dose Route Start Last Admin Trade Name Freq PRN Reason Stop Dose Admin Sodium Chloride 1,000 mls @ 30 mls/hr 08/25/25 10:30 08/25/25 10:59 Sodium Chloride 0.9% IV 08/26/25 10:29 30 mls/hr .Q24H ELISE Administration PFSH Anesthesia Medical History Cellulitis of right foot Psychiatric care History of nonmelanoma skin cancer History of malignant melanoma Chronic pain in right foot Diabetes mellitus with polyneuropathy Cellulitis and abscess of right lower extremity Non-pressure chronic ulcer of other part of right foot with necrosis of bone Dyslipidemia Acute renal failure Cellulitis of leg, right Hallux rigidus, right foot Sleep apnea in adult Restless leg syndrome Dyslipidemia Encounter for long-term use of opiate analgesic Shoulder pain Diverticulosis Type 2 diabetes mellitus with other diabetic neurological complication Essential (primary) hypertension CHF (congestive heart failure) Amputated great toe Wound dehiscence, surgical Surgical History History of amputation of right great toe History of amputation of left great toe History of colonoscopy 2017 History of inguinal hernia repair, bilateral History of ankle surgery Hx of amputation of lesser toe Left foot big toe and second toe 01/21/20 [place] [facility] [place] Leal Status post PICC central line placement H/O hernia repair History of amputation of lesser toe of right foot Family History Mother Cancer Other Dyslipidemia Denies family history of Diabetes CAD (coronary artery disease) Clotting disorder Dementia Hyperlipidemia Psychiatric illness Chronic kidney disease (CKD) Suicide Anesthesia complication Bleeding disorder Family history of premature coronary artery disease Lung disease Hypertension Stroke Social History Smoking and tobacco/nicotine status: never used tobacco/nicotine Second hand smoke exposure: Yes Alcohol intake: former Substance/Drug Use: former Adopted: No Caregiver/support person: No Lives independently: Yes Household members: none Housing: House Marital status: Single Number of children: 0 Number of grandchildren: 0 Highest education level completed: High School Graduate service: Yes status: Discharged status details: discharged with cause branch: [employer] branch details: discharged after 3 years Assignments: Outside [facility] ([employer]) Known or Potential Exposure: Post Traumatic Stress Disorder (PTSD) Current occupational status: disabled Pets and animals: Yes (Sassy) Pets & animals: dog(s) Leisure activites: games and other Leisure activities details: watch TV Sexually active: No Do you think of yourself as: Straight/Heterosexual Current gender identity: Male Yolande/Taoist: None Special yolande needs: No Agree to transfusion: Yes Data Anesthesia Cardiac Studies: Echocardiogram 07/16/24 Echocardiogram Ultrasound 01/10/21
[2025-08-25] MEDS: ceFAZolin 2,000 mg SDV 2000 MG IVP (11:57)
[2025-08-25] MEDS: BUPivacaine 0.5% INJ 10 mL 15 ML INJECTION (12:15)
--- NOTE | 2025-08-25 12:38 | W.PM.BPON ---
Date of Procedure: 12/28/23 Surgeon: Ernesto Cali DPM Winding Department Supervisor(s): Abdiel Procedure(s) performed: First metatarsal exostectomy and second metatarsal osteotomy all left foot. Findings of the procedure(s): Hyperostosis left first metatarsal chronic nonhealing wound left plantar foot. Estimated blood loss: 5 mL Specimen(s) removed: None Post-operative diagnosis: Hyperostosis left first metatarsal nonhealing wound left plantar foot.
--- NOTE | 2025-08-25 12:39 | PM.OP ---
Operative Report Date of procedure: August 25, 2025 Pre-op diagnosis: Type 2 diabetes mellitus with other diabetic neurological complication E11.49 History of transmetatarsal amputation of left foot Z89.432 Non-pressure chronic ulcer of other part of left foot with fat layer exposed L97.522 Exostosis M89.8X9 Post-op diagnosis: Type 2 diabetes mellitus with other diabetic neurological complication E11.49 History of transmetatarsal amputation of left foot Z89.432 Non-pressure chronic ulcer of other part of left foot with fat layer exposed L97.522 Exostosis M89.8X9 Procedure done: 1) exostectomy left first metatarsal. CPT code 42305 2) floating osteotomy left second metatarsal. CPT code 26582 Implants: 4-0 Vicryl, 3-0 nylon Surgeon: Ernesto Cali DPM Pain Management Physician: Abdiel Estimated blood loss: 5 mL 17 minutes IV fluids: See intraoperative documentation. Urine output: No urine output Complications: No complications Brief History: I reviewed at length with the patient, the risks, potential complications, benefits, alternatives, expectations, and typical outcomes associated with the surgery. The risks and potential complications were explained in detail, including but not limited to infection, wound dehiscence or soft tissue complications, bleeding and hematoma, chronic edema, neuritis or nerve damage producing numbness or chronic pain, CRPS, failure to relieve pain or worsening pain, thick / painful / unsightly scar, limited motion / stiffness, malposition, delayed union, malunion, or nonunion, fracture, reaction to implants, anesthetic complications, venous thromboembolism, and deformity recurrence. I discussed the notion of no regrets with the patient as it pertains to complications and outcomes. The patient seemed to understand the nature of the proposed care and required convalescence. They asked appropriate questions, answered to their satisfaction. They are aware no guarantees can be made as to a satisfactory outcome and they understand there may be other possible unforeseen complications or outcomes not listed here that will be treated accordingly if they arise. There were no written or implied guarantees given to the patient. They gave informed consent to proceed. Procedure: Under mild sedation the patient was brought to the operating room and remained on the gurney in supine position. A timeout was performed. Anesthesia was then administered by the anesthesia service. Local anesthesia injected by myself consisting of 30 cc of one-to-one mixture 1% lidocaine and 0.5 and Marcaine plain in a left 1st and 2nd ray block fashion. Well-padded pneumatic tourniquet applied to the left ankle. Left lower extremity was scrubbed, prepped and draped utilizing normal aseptic technique. Left foot was elevated and tourniquet inflated at the left ankle to 250 mmHg. Attention was directed the left plantar midfoot transmetatarsal potation site where a recalcitrant wound is been present and unresponsive to wound care measures consisting of serial debridement, oral antibiotics and total contact casting. A linear incision made over the interval of the 2nd and 1st metatarsal through skin with a 15 blade with dissection carried down medially utilizing sharp and blunt technique with care taken to retract and preserve neurovascular and tendinous structures, bleeders were ligated and cauterized as necessary dissection was carried down to the first metatarsal which demonstrated a hyperostosis at the distal plantar lateral aspect, utilizing a sagittal saw with beveled edges and hand rasp to smooth all rough edges. The incision was irrigated with saline solution. Attention was then directed to the second metatarsal which was noted to be prominent plantarly and now elongated relatively to the first metatarsal and to help maintain metatarsal parabola a osteotomy oriented proximal dorsal to plantar distal in a oblique fashion utilized with a sagittal saw through and through to make an osteotomy to effectively shorten and elevate the second metatarsal for more plantigrade weightbearing parabola of the metatarsals. The incision was irrigated with copious amounts of sterile saline solution and closed in layered fashion with deep tissues reapproximated 3-0 Vicryl, subcutaneous use of 4-0 Vicryl and skin with 4-0 nylon. Incision was dressed with Xeroform, sterile 4 x 4 gauze, Kerlix and Juan wrap followed by application of a cam boot. Tourniquet was deflated and a prompt hyperemic response is noted to the amputation stump of the left foot. Patient tolerated the procedure and anesthesia well and was transferred to the PACU with vital signs stable and vascular status intact. Following a period of postoperative monitoring to be discharged home without home care instructions and scheduled follow-up.
--- NOTE | 2025-08-25 13:15 | ANE.PACU2 ---
Inpatient post-anesthesia follow up: Airway intact: Yes Vital signs: Temperature 98 F Pulse Rate 61 Respiratory Rate 18 Blood Pressure 110/61 Pulse Oximetry 95 Oxygen Delivery Me thod Room Air Oxygen Flow Rate 6 Fraction of Inspir ed Oxygen Hydration adequate: Yes Nausea and vomiting: No Pain level: 1 Mental status: Baseline
== END 2025-08-25 13:15 | disposition home or self-care (01) ==
PROVIDERS: PCP Family Medicine; Visit Provider Podiatrist Foot & Ankle Surgery
PROC: (CPT 28288; principal; 2025-08-25 12:00)
PROC: (CPT 28308; 2025-08-25 12:00)
DX: E11.49 Type 2 diabetes mellitus with other diabetic neurological complication (principal); Z89.432 Acquired absence of left foot; L97.522 Non-pressure chronic ulcer of other part of left foot with fat layer exposed; M89.8X9 Other specified disorders of bone, unspecified site; G47.30 Sleep apnea, unspecified; E78.5 Hyperlipidemia, unspecified; E66.01 Morbid (severe) obesity due to excess calories; Z68.36 Body mass index [BMI] 36.0-36.9, adult; Z79.891 Long term (current) use of opiate analgesic; Z79.4 Long term (current) use of insulin; Z79.82 Long term (current) use of aspirin; Z85.828 Personal history of other malignant neoplasm of skin; E11.22 Type 2 diabetes mellitus with diabetic chronic kidney disease; I13.0 Hypertensive heart and chronic kidney disease with heart failure and stage 1 through stage 4 chronic kidney disease, or unspecified chronic kidney disease; N18.9 Chronic kidney disease, unspecified; I50.9 Heart failure, unspecified
CPT/HCPCS: 28308; 28122; 36416; 82962; E0114; J0690; J2250; J2704; J3010; J3490; J7030; J9999

== ENCOUNTER → 2025-08-31 08:53 | Outpatient (BNVA) | payer MEDICAID, SELFPAY ==
[2024-08-06 11:35] VITALS: BP 142/64; BMI 38.4
== END ==
PROVIDERS: PCP Family Medicine; Visit Provider Family Medicine
DX: E11.49 Type 2 diabetes mellitus with other diabetic neurological complication (principal)
CPT/HCPCS: 80053; 83036

== ENCOUNTER → 2025-09-02 07:18 | Outpatient (BNVA) | payer MEDICAID, SELFPAY ==
[2024-08-06 11:35] VITALS: BP 142/64; BMI 38.4
== END ==
PROVIDERS: PCP Family Medicine; Visit Provider Podiatrist Foot & Ankle Surgery
DX: T81.31XA Disruption of external operation (surgical) wound, not elsewhere classified, initial encounter (principal); N18.31 Chronic kidney disease, stage 3a; E11.49 Type 2 diabetes mellitus with other diabetic neurological complication; Z89.432 Acquired absence of left foot; L03.116 Cellulitis of left lower limb; Y83.8 Other surgical procedures as the cause of abnormal reaction of the patient, or of later complication, without mention of misadventure at the time of the procedure; Z79.4 Long term (current) use of insulin
CPT/HCPCS: 29445; 87070; 87075; 87077; 87186; 87205; 99214

== ENCOUNTER → 2025-09-14 07:21 | Outpatient (BNVA) | payer MEDICAID, SELFPAY ==
[2024-08-06 11:35] VITALS: BP 142/64; BMI 38.4
== END ==
PROVIDERS: PCP Family Medicine; Visit Provider Podiatrist Foot & Ankle Surgery
DX: N18.31 Chronic kidney disease, stage 3a (principal); E11.49 Type 2 diabetes mellitus with other diabetic neurological complication; Z89.432 Acquired absence of left foot; L03.116 Cellulitis of left lower limb; T87.81 Dehiscence of amputation stump; Y83.8 Other surgical procedures as the cause of abnormal reaction of the patient, or of later complication, without mention of misadventure at the time of the procedure; Z79.4 Long term (current) use of insulin
CPT/HCPCS: 29405; 99214

== ENCOUNTER → 2025-09-21 07:22 | Outpatient (BNVA) | payer MEDICAID, SELFPAY ==
[2024-08-06 11:35] VITALS: BP 142/64; BMI 38.4
== END ==
PROVIDERS: PCP Family Medicine; Visit Provider Podiatrist Foot & Ankle Surgery
DX: T87.81 Dehiscence of amputation stump (principal); N18.31 Chronic kidney disease, stage 3a; E11.49 Type 2 diabetes mellitus with other diabetic neurological complication; Z89.432 Acquired absence of left foot; L03.116 Cellulitis of left lower limb; Z79.4 Long term (current) use of insulin; Y83.8 Other surgical procedures as the cause of abnormal reaction of the patient, or of later complication, without mention of misadventure at the time of the procedure
CPT/HCPCS: 99213

== ENCOUNTER → 2025-09-23 13:41 | Outpatient (BNVA) | payer MEDICAID, SELFPAY ==
[2024-08-06 11:35] VITALS: BP 142/64; BMI 38.4
== END ==
PROVIDERS: PCP Family Medicine; Visit Provider Podiatrist Foot & Ankle Surgery
DX: T87.81 Dehiscence of amputation stump (principal); Z89.432 Acquired absence of left foot; N18.31 Chronic kidney disease, stage 3a; E11.49 Type 2 diabetes mellitus with other diabetic neurological complication; L03.116 Cellulitis of left lower limb; Y83.8 Other surgical procedures as the cause of abnormal reaction of the patient, or of later complication, without mention of misadventure at the time of the procedure; Z79.4 Long term (current) use of insulin
CPT/HCPCS: 73630; 99214

== ENCOUNTER 2025-09-23 17:47 | Inpatient (IN) | payer MEDICAID, SELFPAY ==
[2024-08-06 11:35] VITALS: BP 142/64; BMI 38.4
--- OUTSIDE RECORDS SUMMARY | 2024-08-09 03:00 | XMS_ITS ---
Author Organization [facility] Address [address] [place] [address] Care Team Providers Care Telecommunication Equipment Repairer Name Role Phone Deloris NICHOLS, Tito Primary Care Provider Unavailab Tito Sanchez Unavailable [phone] Migration, Provider Unavailable Unavailable REASON FOR VISIT EMR-Trent Encounters Encounter Location Date Provider Diagnosis Migrated_Facility 0 0 08/09/2024 Provider Migration Plan Of Treatment Medication Medication Name Sig Start Date Stop Date Notes HYDROcodone-Acetaminop hen 10-325 MG Oral Tablet 1 Tablet Every 6 Hours PRN 05/09/2024 06/08/2024 *Reorder from [facility] an for eRx and Interaction Alerts* Meloxicam 15 MG Tablet 1 Tablet Once a Day PRN Oral 04/09/2024 06/08/2024 Next Appt Details Provider Name:Lucina hay, 10/01/2025 09:20:00 AM, [address] [place], [address], Progress Notes * Braxton HOSKINS GDOB: [birth year] (55 yo M)Acc No.[id number]:08/09/2024 Patient: Sue Braxton KINSEY :1970 A ge:54 Y S ex:Male Address:[facility] [place], [address] * Refills Stop Meloxicam Tablet, 15 MG, Oral, 1 Tablet Once a Day PRN Stop HYDROcodone-Acetaminophen 10-325 MG Oral Tablet, 1 Tablet Every 6 Hours PRN Stop HYDROcodone-Acetaminophen 10-325 MG Oral Tablet, 1 Tablet Every 6 Hours PRN Subjective: * Chief Complaints: * E MR-Trent * * Date:
--- OUTSIDE RECORDS SUMMARY | 2024-08-10 03:00 | XMS_ITS ---
Author Organization [facility] Address [address] [place] [address] Care Team Providers Care Corporate Auditor Name Role Phone Tito Puentes MD Primary Care Provider Unavailab Tito Sanchez Unavailable [phone] Migration, Provider Unavailable Unavailable REASON FOR VISIT EMR-Trent Medications Medication SIG (Take, Route, Frequency, Duration) Notes Start Date End Date Status furosemide 20mg daily *Reorder f rom [facility] for eRx and Interaction Alerts* Active Victoza 2-Bjorn 1.8mg daily *Reorder from [facility] for eRx and Interaction Alerts* Active Adult Low Dose Aspirin 81mg daily [facility]* Active sildenafil 1tab as directed *[facility]* Active Levemir FlexTouch U100 Insulin 42 units daily *[facility]* Active ropinirole 1mg daily *Reorder fr om [facility] for eRx and Interaction Alerts* Active rosuvastatin 1tab at bedtime *Reorder from [facility] for eRx and Interaction Alerts* Active lisinopril 40mg daily *Reorder f rom [facility] for eRx and Interaction Alerts* Active nortriptyline 100mg at bedtime *Reorder from [facility] for eRx and Interaction Alerts* Active metoprolol succinate 50mg daily *Reorder from [facility] for eRx and Interaction Alerts* Active potassium chloride 30meq every 3 days *Reorder from [facility] for eRx and Interaction Alerts* Active pantoprazole 40mg daily *Reorder from [facility] for eRx and Interaction Alerts* Active Novolog Flexpen U-100 Insulin 20units TID *Reorder from [facility] for eRx and Interaction Alerts* Active Social History Social History Additional Details Category Social Info Options Details Migrated Social History Migrated Social History Alcoholic beverages? - No, Currently on disability? - Yes, Drug or substance abuse? - No, Involved in any legal proceedings or lawsuits? - No, Marital Status - single, Participation in detoxification or rehabilitation - No, Smoking - No, Smoking status (MU) - Unknown if ever smoked, Working currently? - No Encounters Encounter Location Date Provider Diagnosis Migrated_Facility 0 0 08/10/2024 Provider Migration Plan Of Treatment Next Appt Details Provider Name:Lucina Mauricio hay, 10/01/2025 09:20:00 AM, [address] [place], [address], Progress Notes * Braxton HOSKINS GDOB: [birth year] (55 yo M)Acc No.[id number]:08/10/2024 Patient: Braxton BADILLO Nely :1970 A ge:54 Y S ex:Male Address:[address] [place] [address], [address] Subjective: * Chief Complaints: * E MR-Trent * Medical History: Cancer, D iabetes, H igh blood pressure, * Surgical History: Finger surgery hernia Skin Cancer Removal Toe amputation * Family History: M igrated Family History: : Cancer. * Social History: M igrated Social History: M igrated Social History: Alcoholic beverages? - No, C urrently on disability? - Yes, D rug or substance abuse? - No, I nvolved in any legal proceedings or lawsuits? - No, M arital Status - single, P articipation in detoxification or rehabilitation - No, S moking - No, S moking status (MU) - Unknown if ever smoked, W orking currently? - No. * Medications: T akingropinirole 1mg daily , Notes to Pharmacist: *Reorder from [facility] for eRx and Interaction Alerts*Novolog Flexpen U-100 Insulin 20units TID , Notes to Pharmacist: *Reorder from [facility] for eRx and Interaction Alerts*furosemide 20mg daily , Notes to Pharmacist: *Reorder from [facility] for eRx and Interaction Alerts*metoprolol succinate 50mg daily , Notes to Pharmacist: *Reorder from [facility] for eRx and Interaction Alerts*Adult Low Dose Aspirin 81mg daily , Notes to Pharmacist: *Reorder from [facility] for eRx and Interaction Alerts*sildenafil 1tab as directed , Notes to Pharmacist: *Reorder from [facility] for eRx and Interaction Alerts*potassium chloride 30meq every 3 days , Notes to Pharmacist: *Reorder from [facility] for eRx and Interaction Alerts*nortriptyline 100mg at bedtime , Notes to Pharmacist: *Reorder from [facility] for eRx and Interaction Alerts*Levemir FlexTouch U100 Insulin 42 units daily , Notes to Pharmacist: *Reorder from [facility] for eRx and Interaction Alerts*Victoza 2-Bjorn 1.8mg daily , Notes to Pharmacist: *Reorder from [facility] for eRx and Interaction Alerts*pantoprazole 40mg daily , Notes to Pharmacist: *Reorder from [facility] for eRx and Interaction Alerts*rosuvastatin 1tab at bedtime , Notes to Pharmacist: *Reorder from [facility] for eRx and Interaction Alerts*lisinopril 40mg daily , Notes to Pharmacist: *Reorder from [facility] for eRx and Interaction Alerts*Taking ropinirole 1mg daily , Notes to Pharmacist: *Reorder from [facility] for eRx and Interaction Alerts*Taking Novolog Flexpen U-100 Insulin 20units TID , Notes to Pharmacist: *Reorder from [facility] for eRx and Interaction Alerts*Taking furosemide 20mg daily , Notes to Pharmacist: *Reorder from [facility] for eRx and Interaction Alerts*Taking metoprolol succinate 50mg daily , Notes to Pharmacist: *Reorder from [facility] for eRx and Interaction Alerts*Taking Adult Low Dose Aspirin 81mg daily , Notes to Pharmacist: *Reorder from [facility] for eRx and Interaction Alerts*Taking sildenafil 1tab as directed , Notes to Pharmacist: *Reorder from [facility] for eRx and Interaction Alerts*Taking potassium chloride 30meq every 3 days , Notes to Pharmacist: *Reorder from [facility] for eRx and Interaction Alerts*Taking nortriptyline 100mg at bedtime , Notes to Pharmacist: *[facility]*Taking Levemir FlexTouch U100 Insulin 42 units daily , Notes to Pharmacist: *[facility]*Taking Victoza 2-Bjorn 1.8mg daily , Notes to Pharmacist: *[facility]*Taking pantoprazole 40mg daily , Notes to Pharmacist: *[facility]*Taking rosuvastatin 1tab at bedtime , Notes to Pharmacist: *[facility]*Taking lisinopril 40mg daily , Notes to Pharmacist: *[facility]* * * Date:
[2025-09-23] VITALS (7 sets, daily range): BP systolic 133–179; BP diastolic 68–97; PULSE 63–79; RESP 16–17; TEMP 36.6–36.7; O2SAT 92–97; BMI 36.6; BMI 37.7
--- NOTE | 2025-09-23 20:03 | W.ED.WOUNDLC ---
HPI - Wound/Laceration General: Chief Complaint: Wound/Laceration Stated Complaint: Possible Bone infection Dr Cali Time Seen by Provider: 09/23/25 19:56 History of Present Illness: 55yo M w/pmhx of DMT2, CKD stage 3a, s/p amputation of left foot through metatarsal bone couple of months ago w/cc of erythema, purulent drainage, pain of the left forefoot for several weeks. Patient has not had systemic symptoms such as fever, chills or malaise and denies chest pain or shortness of breath, abdominal pain, nausea or vomiting. Patient states that he was treated with antibiotics on an outpatient basis (Bactrim) which did not improve his symptoms. He was referred to the emergency department by his assistant press operator, Dr. Cali, for concern of osteomyelitis and outpatient antibiotic treatment failure. Related Data Home Medications ?Medication ?Instructions ?Recorded ?Confirmed hydrocodone 10 mg-acetaminophen 1 tab PO Q6H PRN Pain 09/22/24 09/23/25 325 mg tablet dulaglutide 0.75 mg/0.5 mL 0.75 mg SUBCUT Q7W 08/17/25 09/23/25 subcutaneous pen injector (Trulicity) insulin aspart U-100 100 unit/mL 20 unit SUBCUT TID 08/17/25 09/23/25 (3 mL) subcutaneous pen (Novolog FlexPen U-100 Insulin aspart) insulin glargine 100 unit/mL (3 33 unit SUBCUT BEDTIME 08/17/25 09/23/25 mL) subcutaneous pen (Lantus Solostar U-100 Insulin) Previous Rx's ?Medication ?Instructions ?Recorded Toe Filler #1 ea 09/12/22 cam walker #1 ea 03/27/24 Diabetic Shoes with toe filler to #1 ea 10/28/24 left and right Blood Glucose Meter #1 ea 01/23/25 Blood Glucose Test Strips #100 ea 01/23/25 blood-glucose,fire extinguisher mechanic,cont #1 ea 02/11/25 (Dexcom G7 Stock Lifter) doxepin 100 mg capsule 200 mg (2 x 100 mg) PO BEDTIME #60 03/26/25 caps blood-glucose sensor (Dexcom G7 #9 ea 05/04/25 Sensor device) pen needle, diabetic 32 gauge x #100 ea 05/07/25 (TechLITE Pen Needle) metoprolol succinate 50 mg 50 mg PO BEDTIME #90 tabs 07/13/25 tablet,extended release 24 hr aspirin 81 mg tablet,delayed 81 mg PO DAILY #90 tabs 07/17/25 release lisinopril 40 mg tablet 40 mg PO DAILY #90 tabs 07/30/25 hydroxyzine HCl 50 mg tablet 50 mg PO QID PRN insomnia #120 tabs 08/20/25 fenofibrate nanocrystallized 145 145 mg PO DAILY #90 tabs 09/07/25 mg tablet sulfamethoxazole 800 1 tab PO BID #14 tabs 09/14/25 mg-trimethoprim 160 mg tablet (Bactrim DS) Allergies Allergy/AdvReac Type Severity Reaction Status Date / Time No Known Allergies Allergy Verified 09/23/25 14:18 PFSH ED PFSH: Medical History (Updated 09/23/25 @ 21:48 by Jeannette Carlson MD) Cellulitis of right foot Psychiatric care History of nonmelanoma skin cancer History of malignant melanoma Chronic pain in right foot Diabetes mellitus with polyneuropathy Cellulitis and abscess of right lower extremity Non-pressure chronic ulcer of other part of right foot with necrosis of bone Dyslipidemia Acute renal failure Cellulitis of leg, right Hallux rigidus, right foot Sleep apnea in adult Restless leg syndrome Dyslipidemia Encounter for long-term use of opiate analgesic Shoulder pain Diverticulosis Type 2 diabetes mellitus with other diabetic neurological complication Essential (primary) hypertension CHF (congestive heart failure) Amputated great toe Wound dehiscence, surgical Surgical History History of amputation of right great toe History of amputation of left great toe History of colonoscopy 2017 History of inguinal hernia repair, bilateral 1970,1977 History of ankle surgery Hx of amputation of lesser toe Left foot big toe [place] [facility] [place] Status post PICC central line placement H/O hernia repair History of amputation of lesser toe of right foot Family History Mother Cancer Other Dyslipidemia Denies family history of Diabetes CAD (coronary artery disease) Clotting disorder Dementia Hyperlipidemia Psychiatric illness Chronic kidney disease (CKD) Suicide Anesthesia complication Bleeding disorder Family history of premature coronary artery disease Lung disease Hypertension Stroke Social History (Reviewed 09/23/25 @ 14:[address] Smoking and tobacco/nicotine status: unknown if used tobacco/nicotine Second hand smoke exposure: Yes Alcohol intake: former Substance/Drug Use: former Adopted: No Caregiver/support person: No Lives independently: Yes Household members: none Housing: House Marital status: Single Number of children: 0 Number of grandchildren: 0 Highest education level completed: High School Graduate service: Yes status: Discharged status details: discharged with cause branch: [employer] branch details: discharged after 3 years Assignments: Outside [employer] ([employer]) Known or Potential Exposure: Post Traumatic Stress Disorder (PTSD) Current occupational status: disabled Pets and animals: Yes (Sassy) Pets & animals: dog(s) Leisure activites: games and other Leisure activities details: watch TV Sexually active: No Do you think of yourself as: Straight/Heterosexual Current gender identity: Male Yolande/Buddhist: None Special yolande needs: No Agree to transfusion: Yes Physical Exam Narrative: EXAM NARRATIVE: Vital signs were reviewed. Patient is alert and oriented. Patient is breathing comfortably, no increased WOB or accessory muscle use. SpO2 is above 95% on RA. No hypotension or tachycardia. Exam of L foot: erythema of the L forefoot, palpable DP and PT pulse, no crepitus, no streaking to the calf, no pain w/palpation of the calf. Course Vital Signs: Vital signs: Vital Signs Temperature 97.9 F 09/23/25 17:52 Pulse Rate 69 09/23/25 22:02 Respiratory Rate 16 09/23/25 22:07 Blood Pressure 179/97 09/23/25 22:02 Pulse Oximetry 92 09/23/25 22:07 Oxygen Delivery Me thod Room Air 09/23/25 22:02 MDM - Wound/Laceration Medical Decision Making 55-year-old male with a chief complaint of left foot erythema, pain, purulent drainage and failure of outpatient antibiotics, referred to the emergency department by Dr. Cali for concern of osteomyelitis and abx failure. On exam patient is hemodynamically stable. Differential diagnosis includes, is limited to, osteomyelitis, cellulitis, antibiotic treatment failure, necrotizing infection, other. Patient was evaluate CBC, CMP, CRP and ESR and was treated with IV Zosyn, IV vancomycin and p.o. oxycodone and Tylenol for pain. Patient is afebrile, has a normal white blood cell count, normal ESR and has an elevated CRP. Cr is elevated in comparison to previous, may indicate GOLDIE. Has mild elevation in potassium, will send repeat. Patient is not complaining of decreased UOP, retention, dysuria, difficulty urinating. Patient was admitted for outpatient treatment failure and further evaluation w/MR to r/o osteomyelitis on an inpatient basis. Admitted. Lab Data 09/23/25 20:22 09/23/25 20: Laboratory Results WBC 11.27 10^3/uL (3.29-11.43) 09/23/25 20: RBC 4.63 10^6/uL (3.85-5.65) 09/23/25: Hgb 12.70 g/dL (11.27-16.99) 09/23/25 20: Hct 38.7 % (37-53) 09/23/25 20: MCV 83.6 fl (82-101) 09/23/25: MCH 27.4 pg (27-33) 09/23/25 20: MCHC 32.8 g/dL (30-55) 09/23/25 20: RDW 13.5 % (12.1-15.1) 09/23/25: Plt Count 344 10^3/cmm (157-399) 09/23/25 20: MPV 10.0 fL (7.4-10.4) 09/23/25 20: Neut % (Auto) 69.5 % 09/23/25: Lymph % (Auto) 18.9 % 09/23/25 20: Humphreys % (Auto) 7.6 % 09/23/25 20: Eos % (Auto) 2.9 % 09/23/25 20: Baso % (Auto) 0.6 % 09/23/25: Neut # (Auto) 7.82 10^3/uL (1.8-7.7) H 09/23/25 20: Lymph # (Auto) 2.1 10^3/uL (0.8-4.8) 09/23/25 20: Humphreys # (Auto) 0.9 10^3/uL (0.2-0.9) 12/10/25 20:22 Eos # (Auto) 0.3 10^3/uL (0.0-0.8) 09/23/25 20:22 Baso # (Auto) 0.1 10^3/uL (0.0-0.1) 09/23/25 20:22 Nucleated RBC % (auto) 0 % 09/23/25 20: Nucleated RBCs # 0.0 /100WBC 09/23/25 20: ESR 7 mm/hr (0-10) 09/23/25 20:22 Sodium 134 mmol/L (136-145) L 09/23/25 20:22 Potassium 5.4 mmol/L (3.5-5.1) H 09/23/25 20: Chloride 100 mmol/L (98-107) 09/23/25 20: Carbon Dioxide 22 mmol/L (22-29) 09/23/25 20:22 Anion Gap 17.4 (5-19) 09/23/25 20:22 BUN 51 mg/dL (6-20) H 09/23/25 20:22 Creatinine 2.7 mg/dL (0.7-1.2) H 09/23/25 20:22 GFR Calculation 24.5 mL/min (90-130) L 09/23/25 20:22 Glucose 212 mg/dL (65-115) H 09/23/25 20:22 Calculated Osmolality 298 mOsm/kg (285-295) H 09/23/25 20:22 Lactic Acid 1.0 mmol/L (0.5-2.2) 09/23/25 20: Calcium 8.7 mg/dL (8.5-10.5) 09/23/25 20:22 Total Bilirubin 0.2 mg/dL (0.15-1.2) 09/23/25 20:22 AST 13 U/L (0-40) 09/23/25 20:22 ALT 11 U/L (0-41) 09/23/25 20:22 Alkaline Phosphatase 52 U/L (40-130) 09/23/25 20:22 C-Reactive Protein 63.5 mg/L (0.0-4.9) H 09/23/25 20:22 Total Protein 7.6 g/dL (6.6-8.7) 09/23/25 20:22 Albumin 4.1 g/dL (3.5-5.2) 09/23/25 20:22 Globulin 3.5 g/dL (1.3-4.6) 09/23/25 20:22 No radiology studies performed this visit Discharge Plan Discharge Patient Disposition: Admitted As Inpatient Admit Provider: Jewel Prasad Clinical Impression: Failure of outpatient treatment, Cellulitis of foot, left, Creatinine elevation, Diabetes mellitus Condition: Stable Coding Level of Care Code ED Discharge Specialist for Davina Whelan
[2025-09-23 20:33] LABS: Hematocrit 38.7 % (37-53); Hemoglobin 12.70 g/dL (11.27-16.99); Mean Corpuscular HGB Conc 32.8 g/dL (30-55); Mean Corpuscular Hemoglobin 27.4 pg (27-33); Mean Corpuscular Volume 83.6 fl (82-101); Nucleated Red Blood Cells % 0 %; Platelet Count 344 10^3/cmm (157-399); Red Blood Count 4.63 10^6/uL (3.85-5.65); White Blood Count 11.27 10^3/uL (3.29-11.43)
[2025-09-23 20:49] LABS: Alanine Aminotransferase 11 U/L (0-41); Albumin Level 4.1 g/dL (3.5-5.2); Alkaline Phosphatase 52 U/L (40-130); Anion Gap 17.4 (5-19); Aspartate Amino Transferase 13 U/L (0-40); Blood Urea Nitrogen 51 mg/dL (6-20); Calcium 8.7 mg/dL (8.5-10.5); Carbon Dioxide 22 mmol/L (22-29); Chloride 100 mmol/L (98-107); Creatinine Clr Calc Pharmacy 38.4543; Globulin 3.5 g/dL (1.3-4.6); Glucose 212 mg/dL (65-115); Osmolality Calculated 298 mOsm/kg (285-295); Potassium 5.4 mmol/L (3.5-5.1); Sodium 134 mmol/L (136-145); Total Protein 7.6 g/dL (6.6-8.7)
--- OUTSIDE RECORDS SUMMARY | 2025-09-23 20:53 | XMS_ITS | Clinical Summary ---
Author Organization [facility] tone Address [address] [place] [address] Care Team Providers Care Culinary Arts Instructor Name Role Phone Bernard Samson MD Primary Care Provider [phone] Allergies No known active allergies Medications metFORMIN (GLUCOPHAGE) 1,000 mg tablet Take 1,000 mg by mouth 2 times daily with meals. Active glipiZIDE (GLUCOTROL XL) 2.5 mg Extended Release 24 hour tablet Take 2.5 mg by mouth daily with breakfast. Active CANAGLIFLOZIN (INVOKANA ORAL) Take 1 Tablet by mouth daily. Active ibuprofen (MOTRIN) 800 mg tablet Take 1 Tablet (800 mg) by mouth every 8 hours as needed for Pain. 30 Tablet 0 06/08/2015 Active Active Problems Problem Noted Date Diagnosed Date MRSA (methicillin resistant staph aureus) cultur e positive 06/08/2015 Finger dislocation 05/18/2015 Family History Medical History Relation Name Comments Lung Cancer Mother Relation Name Status Comments Mother Social History Tobacco Use Types Packs/Day Years Used Date Smoking Tobacco: Never Smokeless Tobacco: Never Alcohol Use Standard Drinks/Week Comments Yes 0 (1 standard drink = 0.6 oz pur e alcohol) once or twice a year Sex and Gender Information Value Date Recorded Sex Assigned at Not on file Legal Sex Male 9:28 AM CDT Gender Identity Not on file Sexual Orientation Not on file Last Filed Vital Signs Vital Sign Reading Time Taken Comments Blood Pressure 133/74 2015 12:54 PM CDT Pulse 81 2015 12:54 PM CDT Temperature 35.8 C (96.4 F) 06/08/2015 12:00 PM CDT Respiratory Rate 17 06/08/2015 11:40 AM CDT Oxygen Saturation 94% 06/08/2015 12:15 PM CDT Inhaled Oxygen Concentration - - Weight 97.5 kg (215 lb) 2015 12:54 PM CDT Height 177.8 cm (5' 10 ) 2015 12:54 PM CDT Body Mass Index 30.85 2015 12:54 PM CDT Plan of Treatment Health Maintenance Due Date Last Done Comments DTAP/TDAP/TD VACCINES (1 - Tdap) 1987 HEPATITIS B VACCINES (1 of 3 - 19+ 3-dose series) 06/1987 COLORECTAL SCREENING 2013 Colorectal Cancer Screening 2013 FIT-DNA Q 3 years 2013 FIT/FOBT Q 1 year 2013 Flex Sig/CT Colonography Q 5 years 2013 ZOSTER VACCINE (1 of 2) 2018 INFLUENZA VACCINE (#1) 2025 Medical Devices Implanted Type Area Director Of Creative Services Device Identifier Shelf Expiration Date Model / Serial / Lot Wire K Trocar Dbl .[id number] - [id number] Implanted:Qty: 1 on 05/18/2015 by Derik Sanford MD at [facility] Wire Left: Finger [employer] [facility] 01/01/2020 [id number] / / [id number] Wire K Trocar Dbl .[id number] - [id number] Implanted:Qty: 1 on 06/08/2015 by Derik Sanford MD at [facility] Wire Left: Finger [employer] [facility] [id number] / / LOAD# [id number] 24 Gauge Steel Wire Implanted:Qty: 1 on 06/08/2015 by Derik Sanford MD at [facility] Left: Finger / / LOAD# [id number] Description:272 item moved t o picklist for correct chg Additional Health Concerns Infection Onset Date Last Indicated MRSA Comment:Foot ulcer 05/2015 ([facility]) 06/08/2015 06/08/2015 Insurance Advance Directives For more information, please contact: [phone] * Full Code (Latest Code Status on File) Date Activated Date Inactivated Comments 06/08/2015 8:33 AM 06/08/2015 2:33 PM * Full Code Date Activated Date Inactivated Comments 05/18/2015 9:30 AM 05/18/2015 6:59 PM Care Teams Culinary Arts Instructor Relationship Specialty Start Date End Date Bernard Samson MD [address] [facility] [address] [place] [address] PCP - General Family Practice 06/02/15
--- OUTSIDE RECORDS SUMMARY | 2025-09-23 20:54 | XMS_ITS | Clinical Summary ---
Author Organization [facility] Address [address] [place]: Epic Prelude ADT [place] [address] Care Team Providers Care Gas Torch Brazier Name Role Phone Bernard Samson MD Primary Care Provider [phone] Allergies No known active allergies Medications ibuprofen (MOTRIN) 800 mg tablet Take 1 Tablet (800 mg) by mouth every 8 hours as needed for Pain. 30 Tablet 0 06/08/2015 Active metFORMIN (GLUCOPHAGE) 1,000 mg tablet Take 1,000 mg by mouth 2 times daily with meals. 05/14/2015 Active canagliflozin (INVOKANA ORAL) Take 1 Tablet by mouth daily. 06/02/2015 Active glipiZIDE (GLUCOTROL XL) 2.5 mg Extended Release 24 hour tablet Take 2.5 mg by mouth daily with breakfast. 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 Gender Identity Not on file Sexual Orientation Not on file Last Filed Vital Signs Vital Sign Reading Time Taken Comments Blood Pressure 133/74 2015 12:54 PM CDT Pulse 81 2015 12:54 PM CDT Temperature 35.8 C (96.4 F) 06/08/2015 12:00 PM CDT Respiratory Rate 17 06/08/2015 11:40 AM CDT Oxygen Saturation - - Inhaled Oxygen Concentration - - Weight 97.5 [...] (#1) 2025 Medical Devices Implanted Type Area Retreader Device Identifier Shelf Expiration Date Model / Serial / Lot Wire K Trocar Dbl .[id number] - [id number] Implanted:Qty: 1 on 05/18/2015 by Derik Sanford MD Wire Left: Finger [employer] 01/01/2020 [id number] / / [id number] Wire K Trocar Dbl .[id number] - [id number] Implanted:Qty: 1 on 06/08/2015 by Derik Sanford MD Wire Left: [id number] / / LOAD# [id number] Gauge Steel Wire Implanted:Qty: 1 on 06/08/2015 by Derik Sanford MD Left: Finger / / LOAD# [id number] Description:272 item moved t o picklist for correct chg Additional Health Concerns Infection Onset Date Last Indicated MRSA Comment:Foot ulcer 05/2015 ([facility]) 06/08/2015 06/08/2015 Care Teams Gas Torch Brazier Relationship Specialty Start Date End Date Bernard Samson MD [address] [id number] PCP - General Family Practice 06/02/15
--- OUTSIDE RECORDS SUMMARY | 2025-09-23 20:54 | XMS_ITS | Patient Health Record ---
Author Organization [facility] Address [address] [place] [address] Care Team Providers Care Ditch Cleaner Name Role Phone Tito Puentes MD Primary Care Provider Unavailab ileana Santiago Tito Unavailable [phone] Saul Lucina Unavailable [phone] AlyssaGriffin topete Unavailable [phone] Allergies No Known Allergies Results Component Value Reference Range Flag Notes Urine Drug Screen (cup read) - [id number] Reviewed date:01/29/2025 08:45:09 AM Interpretation: Performing Lab: Notes/Report: OPI + Tox Results Reviewed date:06/09/2025 02:34:09 PM Interpretation: Performing Lab: Notes/Report: Tox Results Reviewed date:04/02/2025 10:16:00 AM Interpretation: Performing Lab: Notes/Report: Urine Confirmation Panel (in strument) - [id number] Reviewed date:12/12/2024 01:38:41 PM Interpretation: Performing Lab: Notes/Report: 6-Acetylmorphine 0 <6 ng/mL N This edwardo t was developed and its performance characteristics determined by [facility]. It has not been cleared or approved by the U.S. Food and Drug Administration. 7-Aminoclonazepam 0 <60 ng/mL N This te st was developed and its performance characteristics determined by [facility]. It has not been cleared or approved by the U.S. Food and Drug Administration. Alprazolam 0 <60 ng/mL N This test was developed and its performance characteristics determined by [facility]. It has not been cleared or approved by the U.S. Food and Drug Administration. Amphetamine 0 <75 ng/mL N This test was developed and its performance characteristics determined by [facility]. It has not been cleared or approved by the U.S. Food and Drug Administration. aOH-Alprazolam 0 <60 ng/mL N This test was developed and its performance characteristics determined by [facility]. It has not been cleared or approved by the U.S. Food and Drug Administration. Buprenorphine 0.0 <7.5 ng/mL N This test w as developed and its performance characteristics determined by [facility]. It has not been cleared or approved by the U.S. Food and Drug Administration. Norbuprenorphine 0.0 <37.5 ng/mL N This te st was developed and its performance characteristics determined by [facility]. It has not been cleared or approved by the U.S. Food and Drug Administration. Carisoprodol 0 <75 ng/mL N This test wa s developed and its performance characteristics determined by [facility]. It has not been cleared or approved by the U.S. Food and Drug Administration. Codeine 0 <75 ng/mL N This test was developed and its performance characteristics determined by [facility]. It has not been cleared or approved by the U.S. Food and Drug Administration. EDDP 0 <75 ng/mL N This test was developed and its performance characteristics determined by [facility]. It has not been cleared or approved by the U.S. Food and Drug Administration. Fentanyl 0 <6 ng/mL N This test was developed and its performance characteristics determined by [facility]. It has not been cleared or approved by the U.S. Food and Drug Administration. Hydrocodone 1517 <75 ng/mL H This test was developed and its performance characteristics determined by [facility]. It has not been cleared or approved by the U.S. Food and Drug Administration. Hydromorphone 217 <75 ng/mL H This test w as developed and its performance characteristics determined by [facility]. It has not been cleared or approved by the U.S. Food and Drug Administration. Lorazepam 0 <60 ng/mL N This test was developed and its performance characteristics determined by [facility]. It has not been cleared or approved by the U.S. Food and Drug Administration. MDMA 0 <75 ng/mL N This test was developed and its performance characteristics determined by [facility]. It has not been cleared or approved by the U.S. Food and Drug Administration. Meperidine 0.0 <37.5 ng/mL N This test was developed and its performance characteristics determined by [facility]. It has not been cleared or approved by the U.S. Food and Drug Administration. Meprobamate 0 <75 ng/mL N This test was developed and its performance characteristics determined by [facility]. It has not been cleared or approved by the U.S. Food and Drug Administration. Methamphetamine 0 <75 ng/mL N This test was developed and its performance characteristics determined by [facility]. It has not been cleared or approved by the U.S. Food and Drug Administration. Methadone 0 <75 ng/mL N This test was developed and its performance characteristics determined by [facility]. It has not been cleared or approved by the U.S. Food and Drug Administration. Morphine 0 <75 ng/mL N This test was developed and its performance characteristics determined by [facility]. It has not been cleared or approved by the U.S. Food and Drug Administration. Nordiazepam 0 <60 ng/mL N This test was developed and its performance characteristics determined by [facility]. It has not been cleared or approved by the U.S. Food and Drug Administration. Norfentanyl 1 <6 ng/mL N This test was developed and its performance characteristics determined by [facility]. It has not been cleared or approved by the U.S. Food and Drug Administration. Normeperidine 0.0 <37.5 ng/mL N This test was developed and its performance characteristics determined by [facility]. It has not been cleared or approved by the U.S. Food and Drug Administration. O-desmethyltramadol 0 <75 ng/mL N This test was developed and its performance characteristics determined by [facility]. It has not been cleared or approved by the U.S. Food and Drug Administration. Oxazepam 0 <60 ng/mL N This test was developed and its performance characteristics determined by [facility]. It has not been cleared or approved by the U.S. Food and Drug Administration. Oxycodone 28.3 <37.5 ng/mL N This test was developed and its performance characteristics determined by [facility]. It has not been cleared or approved by the U.S. Food and Drug Administration. Oxymorphone 0 <75 ng/mL N This test was developed and its performance characteristics determined by [facility]. It has not been cleared or approved by the U.S. Food and Drug Administration. Phencyclidine 0.0 <7.5 ng/mL N This test w as developed and its performance characteristics determined by [facility]. It has not been cleared or approved by the U.S. Food and Drug Administration. Tapentadol 13.6 <37.5 ng/mL N This test was developed and its performance characteristics determined by [facility]. It has not been cleared or approved by the U.S. Food and Drug Administration. Temazepam 5 <60 ng/mL N This test was developed and its performance characteristics determined by [facility]. It has not been cleared or approved by the U.S. Food and Drug Administration. Tramadol 0 <75 ng/mL N This test was developed and its performance characteristics determined by [facility]. It has not been cleared or approved by the U.S. Food and Drug Administration. Norhydrocodone 441 <75 ng/mL H This test was developed and its performance characteristics determined by [facility]. It has not been cleared or approved by the U.S. Food and Drug Administration. Noroxycodone 0 <38 ng/mL N This test wa s developed and its performance characteristics determined by [facility]. It has not been cleared or approved by the U.S. Food and Drug Administration. Pregabalin 0 <225 ng/mL N This test was developed and its performance characteristics determined by [facility]. It has not been cleared or approved by the U.S. Food and Drug Administration. Gabapentin 0 <225 ng/mL N This test was developed and its performance characteristics determined by [facility]. It has not been cleared or approved by the U.S. Food and Drug Administration. Benzoylecgonine 0.0 <37.5 ng/mL N This edwardo t was developed and its performance characteristics determined by [facility]. It has not been cleared or approved by the U.S. Food and Drug Administration. 4-Hydroxy Xylazine 0 <25 ng/mL N This t est was developed and its performance characteristics determined by [facility]. It has not been cleared or approved by the U.S. Food and Drug Administration. zzzUrine Drug Screen (confir mation by instrument) - [id number] Reviewed date:12/09/2024 10:36:56 AM Interpretation: Performing Lab: Notes/Report: Urine Confirmation Panel (in strument) - [id number] Reviewed date:04/02/2025 10:08:57 AM Interpretation: Performing Lab: Notes/Report: 6-Acetylmorphine 0 <6 ng/mL N This edwardo t was developed and its performance characteristics determined by [facility]. It has not been cleared or approved by the U.S. Food and Drug Administration. 7-Aminoclonazepam 0 <60 ng/mL N This te st was developed and its performance characteristics determined by [facility]. It has not been cleared or approved by the U.S. Food and Drug Administration. Alprazolam 0 <60 ng/mL N This test was developed and its performance characteristics determined by [facility]. It has not been cleared or approved by the U.S. Food and Drug Administration. Amphetamine 0 <75 ng/mL N This test was developed and its performance characteristics determined by [facility]. It has not been cleared or approved by the U.S. Food and Drug Administration. aOH-Alprazolam 0 <60 ng/mL N This test was developed and its performance characteristics determined by [facility]. It has not been cleared or approved by the U.S. Food and Drug Administration. Buprenorphine 0.0 <7.5 ng/mL N This test w as developed and its performance characteristics determined by [facility]. It has not been cleared or approved by the U.S. Food and Drug Administration. Norbuprenorphine 0.0 <37.5 ng/mL N This te st was developed and its performance characteristics determined by [facility]. It has not been cleared or approved by the U.S. Food and Drug Administration. Carisoprodol 0 <75 ng/mL N This test wa s developed and its performance characteristics determined by [facility]. It has not been cleared or approved by the U.S. Food and Drug Administration. Codeine 0 <75 ng/mL N This test was developed and its performance characteristics determined by [facility]. It has not been cleared or approved by the U.S. Food and Drug Administration. EDDP 0 <75 ng/mL N This test was developed and its performance characteristics determined by [facility]. It has not been cleared or approved by the U.S. Food and Drug Administration. Fentanyl 0 <6 ng/mL N This test was developed and its performance characteristics determined by [facility]. It has not been cleared or approved by the U.S. Food and Drug Administration. Hydrocodone 879 <75 ng/mL H This test was developed and its performance characteristics determined by [facility]. It has not been cleared or approved by the U.S. Food and Drug Administration. Hydromorphone 107 <75 ng/mL H This test w as developed and its performance characteristics determined by [facility]. It has not been cleared or approved by the U.S. Food and Drug Administration. Lorazepam 0 <60 ng/mL N This test was developed and its performance characteristics determined by [facility]. It has not been cleared or approved by the U.S. Food and Drug Administration. MDMA 0 <75 ng/mL N This test was developed and its performance characteristics determined by [facility]. It has not been cleared or approved by the U.S. Food and Drug Administration. Meperidine 0.0 <37.5 ng/mL N This test was developed and its performance characteristics determined by [facility]. It has not been cleared or approved by the U.S. Food and Drug Administration. Meprobamate 0 <75 ng/mL N This test was developed and its performance characteristics determined by [facility]. It has not been cleared or approved by the U.S. Food and Drug Administration. Methamphetamine 35 <75 ng/mL N This test was developed and its performance characteristics determined by [facility]. It has not been cleared or approved by the U.S. Food and Drug Administration. Methadone 0 <75 ng/mL N This test was developed and its performance characteristics determined by [facility]. It has not been cleared or approved by the U.S. Food and Drug Administration. Morphine 0 <75 ng/mL N This test was developed and its performance characteristics determined by [facility]. It has not been cleared or approved by the U.S. Food and Drug Administration. Nordiazepam 0 <60 ng/mL N This test was developed and its performance characteristics determined by [facility]. It has not been cleared or approved by the U.S. Food and Drug Administration. Norfentanyl 0 <6 ng/mL N This test was developed and its performance characteristics determined by [facility]. It has not been cleared or approved by the U.S. Food and Drug Administration. Normeperidine 0.0 <37.5 ng/mL N This test was developed and its performance characteristics determined by [facility]. It has not been cleared or approved by the U.S. Food and Drug Administration. O-desmethyltramadol 0 <75 ng/mL N This test was developed and its performance characteristics determined by [facility]. It has not been cleared or approved by the U.S. Food and Drug Administration. Oxazepam 0 <60 ng/mL N This test was developed and its performance characteristics determined by [facility]. It has not been cleared or approved by the U.S. Food and Drug Administration. Oxycodone 0.0 <37.5 ng/mL N This test was developed and its performance characteristics determined by [facility]. It has not been cleared or approved by the U.S. Food and Drug Administration. Oxymorphone 0 <75 ng/mL N This test was developed and its performance characteristics determined by [facility]. It has not been cleared or approved by the U.S. Food and Drug Administration. Phencyclidine 0.0 <7.5 ng/mL N This test w as developed and its performance characteristics determined by [facility]. It has not been cleared or approved by the U.S. Food and Drug Administration. Tapentadol 0.0 <37.5 ng/mL N This test was developed and its performance characteristics determined by [facility]. It has not been cleared or approved by the U.S. Food and Drug Administration. Temazepam 0 <60 ng/mL N This test was developed and its performance characteristics determined by [facility]. It has not been cleared or approved by the U.S. Food and Drug Administration. Tramadol 0 <75 ng/mL N This test was developed and its performance characteristics determined by [facility]. It has not been cleared or approved by the U.S. Food and Drug Administration. Norhydrocodone >5000 <75 ng/mL > This test was developed and its performance characteristics determined by [facility]. It has not been cleared or approved by the U.S. Food and Drug Administration. Noroxycodone 0 <38 ng/mL N This test wa s developed and its performance characteristics determined by [facility]. It has not been cleared or approved by the U.S. Food and Drug Administration. Pregabalin 0 <225 ng/mL N This test was developed and its performance characteristics determined by [facility]. It has not been cleared or approved by the U.S. Food and Drug Administration. Gabapentin 0 <225 ng/mL N This test was developed and its performance characteristics determined by [facility]. It has not been cleared or approved by the U.S. Food and Drug Administration. Benzoylecgonine 0.0 <37.5 ng/mL N This edwardo t was developed and its performance characteristics determined by [facility]. It has not been cleared or approved by the U.S. Food and Drug Administration. 4-Hydroxy Xylazine 0 <25 ng/mL N This t est was developed and its performance characteristics determined by [facility]. It has not been cleared or approved by the U.S. Food and Drug Administration. Urine Drug Screen (cup read) - [id number] Reviewed date:03/26/2025 10:29:23 AM Interpretation: Performing Lab: Notes/Report: OPI + Tox Results Reviewed date:12/12/2024 01:46:12 PM Interpretation: Performing Lab: Notes/Report: zzzUrine Drug Screen (confir mation by instrument) - [id number] Reviewed date:10/07/2024 01:25:28 PM Interpretation: Performing Lab: Notes/Report: Urine Confirmation Panel (in strument) - [id number] Reviewed date:06/09/2025 02:46:34 PM Interpretation: Performing Lab: Notes/Report: 6-Acetylmorphine 0 <6 ng/mL N This edwardo t was developed and its performance characteristics determined by [facility]. It has not been cleared or approved by the U.S. Food and Drug Administration. 7-Aminoclonazepam 0 <60 ng/mL N This te st was developed and its performance characteristics determined by [facility]. It has not been cleared or approved by the U.S. Food and Drug Administration. Alprazolam 0 <60 ng/mL N This test was developed and its performance characteristics determined by [facility]. It has not been cleared or approved by the U.S. Food and Drug Administration. Amphetamine 0 <75 ng/mL N This test was developed and its performance characteristics determined by [facility]. It has not been cleared or approved by the U.S. Food and Drug Administration. aOH-Alprazolam 0 <60 ng/mL N This test was developed and its performance characteristics determined by [facility]. It has not been cleared or approved by the U.S. Food and Drug Administration. Buprenorphine 0.0 <7.5 ng/mL N This test w as developed and its performance characteristics determined by [facility]. It has not been cleared or approved by the U.S. Food and Drug Administration. Norbuprenorphine 0.0 <37.5 ng/mL N This te st was developed and its performance characteristics determined by [facility]. It has not been cleared or approved by the U.S. Food and Drug Administration. Carisoprodol 0 <75 ng/mL N This test wa s developed and its performance characteristics determined by [facility]. It has not been cleared or approved by the U.S. Food and Drug Administration. Codeine 0 <75 ng/mL N This test was developed and its performance characteristics determined by [facility]. It has not been cleared or approved by the U.S. Food and Drug Administration. EDDP 0 <75 ng/mL N This test was developed and its performance characteristics determined by [facility]. It has not been cleared or approved by the U.S. Food and Drug Administration. Fentanyl 0 <6 ng/mL N This test was developed and its performance characteristics determined by [facility]. It has not been cleared or approved by the U.S. Food and Drug Administration. Hydrocodone 1166 <75 ng/mL H This test was developed and its performance characteristics determined by [facility]. It has not been cleared or approved by the U.S. Food and Drug Administration. Hydromorphone 155 <75 ng/mL H This test w as developed and its performance characteristics determined by [facility]. It has not been cleared or approved by the U.S. Food and Drug Administration. Lorazepam 0 <60 ng/mL N This test was developed and its performance characteristics determined by [facility]. It has not been cleared or approved by the U.S. Food and Drug Administration. MDMA 0 <75 ng/mL N This test was developed and its performance characteristics determined by [facility]. It has not been cleared or approved by the U.S. Food and Drug Administration. Meperidine 0.0 <37.5 ng/mL N This test was developed and its performance characteristics determined by [facility]. It has not been cleared or approved by the U.S. Food and Drug Administration. Meprobamate 0 <75 ng/mL N This test was developed and its performance characteristics determined by [facility]. It has not been cleared or approved by the U.S. Food and Drug Administration. Methamphetamine 0 <75 ng/mL N This test was developed and its performance characteristics determined by [facility]. It has not been cleared or approved by the U.S. Food and Drug Administration. Methadone 0 <75 ng/mL N This test was developed and its performance characteristics determined by [facility]. It has not been cleared or approved by the U.S. Food and Drug Administration. Morphine 0 <75 ng/mL N This test was developed and its performance characteristics determined by [facility]. It has not been cleared or approved by the U.S. Food and Drug Administration. Nordiazepam 0 <60 ng/mL N This test was developed and its performance characteristics determined by [facility]. It has not been cleared or approved by the U.S. Food and Drug Administration. Norfentanyl 0 <6 ng/mL N This test was developed and its performance characteristics determined by [facility]. It has not been cleared or approved by the U.S. Food and Drug Administration. Normeperidine 0.0 <37.5 ng/mL N This test was developed and its performance characteristics determined by [facility]. It has not been cleared or approved by the U.S. Food and Drug Administration. O-desmethyltramadol 0 <75 ng/mL N This test was developed and its performance characteristics determined by [facility]. It has not been cleared or approved by the U.S. Food and Drug Administration. Oxazepam 0 <60 ng/mL N This test was developed and its performance characteristics determined by [facility]. It has not been cleared or approved by the U.S. Food and Drug Administration. Oxycodone 0.0 <37.5 ng/mL N This test was developed and its performance characteristics determined by [facility]. It has not been cleared or approved by the U.S. Food and Drug Administration. Oxymorphone 0 <75 ng/mL N This test was developed and its performance characteristics determined by [facility]. It has not been cleared or approved by the U.S. Food and Drug Administration. Phencyclidine 0.0 <7.5 ng/mL N This test w as developed and its performance characteristics determined by [facility]. It has not been cleared or approved by the U.S. Food and Drug Administration. Tapentadol 0.0 <37.5 ng/mL N This test was developed and its performance characteristics determined by [facility]. It has not been cleared or approved by the U.S. Food and Drug Administration. Temazepam 0 <60 ng/mL N This test was developed and its performance characteristics determined by [facility]. It has not been cleared or approved by the U.S. Food and Drug Administration. Tramadol 0 <75 ng/mL N This test was developed and its performance characteristics determined by [facility]. It has not been cleared or approved by the U.S. Food and Drug Administration. Norhydrocodone 4667 <75 ng/mL H This test was developed and its performance characteristics determined by [facility]. It has not been cleared or approved by the U.S. Food and Drug Administration. Noroxycodone 0 <38 ng/mL N This test wa s developed and its performance characteristics determined by [facility]. It has not been cleared or approved by the U.S. Food and Drug Administration. Pregabalin 0 <225 ng/mL N This test was developed and its performance characteristics determined by [facility]. It has not been cleared or approved by the U.S. Food and Drug Administration. Gabapentin 0 <225 ng/mL N This test was developed and its performance characteristics determined by [facility]. It has not been cleared or approved by the U.S. Food and Drug Administration. Benzoylecgonine 0.0 <37.5 ng/mL N This edwardo t was developed and its performance characteristics determined by [facility]. It has not been cleared or approved by the U.S. Food and Drug Administration. 4-Hydroxy Xylazine 0 <25 ng/mL N This t est was developed and its performance characteristics determined by [facility]. It has not been cleared or approved by the U.S. Food and Drug Administration. Urine Drug Screen (cup read) - 83144 Reviewed date:06/01/2025 09:04:31 AM Interpretation: Performing Lab: Notes/Report: OPI + OXY + Reason For Referral No Information Medications Medication SIG (Take, Route, Frequency, Duration) Notes Start Date End Date Status rosuvastatin 1tab at bedtime *Reorder from [facility] for eRx and Interaction Alerts* Active Adult Low Dose Aspirin 81mg daily [facility]* Active sildenafil 1tab as directed *Reorder from [facility] for eRx and Interaction Alerts* Active furosemide 20mg daily *Reorder f rom [facility] for eRx and Interaction Alerts* Active Victoza 2-Bjorn 1.8mg daily *Reorder from [facility] for eRx and Interaction Alerts* Active Levemir [...] Active nortriptyline 100mg at bedtime *[facility]* Active Novolog Flexpen U-100 Insulin 20units TID *Reorder from [facility] for eRx and Interaction Alerts* Active HYDROcodone-Acetamino phen 10-325 MG Tablet 1 tablet Orally every 6 hrs; Duration: 30 days As needed Not to exceed 4 per day Fill on 09/03/2025 07/29/2025 10/03/2025 Active Meloxicam 15 MG Tablet 1 tablet as needed Orally Once a day; Duration: 30 days Fill 30 days from previous Rx 06/01/2025 Active Social History Social History Additional Details [...] if ever smoked, Working currently? - No Problems Problem Type SNOMED Code ICD Code Onset Dates Problem Status W/U Status Risk Notes Problem Polyneuropathy due to type 2 diabetes mellitus (194378351) Type 2 diabetes mellitus with diabetic polyneuropathy (E11.42) 04/09/20 24 Active confirmed Problem Chronic pain syndrome (905011833) Chronic pain syndrome (G89.4) 04/09/20 Active confirmed Problem Disorder of joint of right shoulder region (disorder) (6329971778761329 3) Other specific arthropathies, not elsewhere classified, right shoulder (M12.811) 04/09/20 Active confirmed Problem Rotator cuff arthropathy of left shoulder (disorder) (1962045620848642 0) Other specific arthropathies, not elsewhere classified, left shoulder (M12.812) 04/09/20 Active confirmed Problem Abnormal gait (18943927) Unspecified abnormalities of gait and mobility (R26.9) 04/09/20 Active confirmed Problem Traumatic amputation of toe OR toes without complication (19631332) 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, 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) 04/09/20 Active confirmed Problem Traumatic amputation, lesser toe (563893386) 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, subsequent encounter (S98.131D) Active confirmed Problem Traumatic amputation of toe OR toes without complication (00615602) Complete traumatic amputation of one left lesser toe, initial encounter (S98.132A) 04/09/20 Active confirmed Problem Complete traumatic amputation of one left lesser toe, subsequent encounter (S98.132D) Active confirmed Problem High risk drug monitoring status (694655954) 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 (Z79.891) Active confirmed Problem History of malignant neoplasm of skin (situation) (282552158) Personal history of other malignant neoplasm of skin (Z85.828) 04/09/20 Active confirmed Vital Signs Height-cm 177.8 cm 07/29/2025 Weight-kg 117.94 kg 07/29/2025 Height 70.00 in 07/29/2025 Weight 260 lbs 07/29/2025 BMI 37.3 kg/m2 07/29/2025 Encounters Encounter Location Date Provider Diagnosis [facility] [address] [address] 07/29/2025 Tito Santiago Chronic pain syndrom e G89.4 ; Type 2 diabetes mellitus with diabetic polyneuropathy E11.42 ; Other specific arthropathies, not elsewhere classified, right shoulder M12.811 ; 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 Z79.891 ; Other specific arthropathies, not elsewhere classified, left shoulder M12.812 and Unspecified abnormalities of gait and mobility R26.9 [facility] [address] [address] 06/01/2025 Lucina Hughes Type 2 diabetes mellitus with diabetic polyneuropathy E11.42 ; Chronic pain syndrome G89.4 ; Other specific arthropathies, not elsewhere classified, right shoulder M12.811 ; Other specific arthropathies, not elsewhere classified, left shoulder M12.812 ; Unspecified abnormalities of gait and mobility R26.9 ; 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 Z79.891 ; Complete traumatic amputation of one left lesser toe, subsequent encounter S98.132D ; 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, subsequent encounter S98.131D ; Personal history of other malignant neoplasm of skin Z85.828 ; 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, initial encounter S98.131A and Complete traumatic amputation of one left lesser toe, initial encounter S98.132A [facility] [address] [address] 03/26/2025 Lucina Hughes Chronic pain syndrom e G89.4 ; Type 2 diabetes mellitus with diabetic polyneuropathy E11.42 ; Unspecified abnormalities of gait and mobility R26.9 ; Other specific arthropathies, not elsewhere classified, right shoulder M12.811 ; Other specific arthropathies, not elsewhere classified, left shoulder M12.812 ; Complete traumatic amputation of one left lesser toe, subsequent encounter S98.132D ; 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, subsequent encounter S98.131D ; Personal history of other malignant neoplasm of skin Z85.828 ; 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 Z79.891 ; 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, initial encounter S98.131A and Complete traumatic amputation of one left lesser toe, initial encounter S98.132A [facility] [place] [address] [place] [phone] 01/29/2025 Lucina Hughes Chronic pain syndrom e G89.4 ; Type 2 diabetes mellitus with diabetic polyneuropathy E11.42 ; Other specific arthropathies, not elsewhere classified, right shoulder M12.811 ; Other specific arthropathies, not elsewhere classified, left shoulder M12.812 ; Unspecified abnormalities of gait and mobility R26.9 ; Complete traumatic amputation of one left lesser toe, subsequent encounter S98.132D ; 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, subsequent encounter S98.131D ; Personal history of other malignant neoplasm of skin Z85.828 ; 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 Z79.891 ; 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, initial encounter S98.131A and Complete traumatic amputation of one left lesser toe, initial encounter S98.132A [facility] [address] [address] 12/05/2024 Tito Santiago Type 2 diabetes mellitus with diabetic polyneuropathy E11.42 ; Chronic pain syndrome G89.4 ; Other specific arthropathies, not elsewhere classified, right shoulder M12.811 ; Other specific arthropathies, not elsewhere classified, left shoulder M12.812 ; Unspecified abnormalities of gait and mobility R26.9 and 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 Z79.891 [facility] [address] [address] 09/29/2024 Griffin Shah Type 2 diabetes mellitus with diabetic polyneuropathy E11.42 ; Chronic pain syndrome G89.4 ; Other specific arthropathies, not elsewhere classified, right shoulder M12.811 ; Other specific arthropathies, not elsewhere classified, left shoulder M12.812 ; Unspecified abnormalities of gait and mobility R26.9 and 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 Z79.891 [facility] [address] [place] [address] 06/01/2025 Tito Santiago Other specific arthropathies, not elsewhere classified, right shoulder M12.811 and Chronic pain syndrome G89.4 [facility] [place] [address] [place] [address] 03/26/2025 Tito Santiago Other specific arthropathies, not elsewhere classified, right shoulder M12.811 and Chronic pain syndrome G89.4 [facility] [place] [address] [place] [address] 01/29/2025 Tito Santiago Other specific arthropathies, not elsewhere classified, right shoulder M12.811 and Chronic pain syndrome G89.4 [facility] [address] [place] [address] 09/29/2024 Tito Santiago Assessments Encounter Date Diagnosis (ICD Code) Assessment Notes Treatment Notes Treatment Clinical Notes Section Notes 09/29/2024 Type 2 diabetes mellitus with diabetic polyneuropathy (ICD-10 - E11.42) I had a nice discussion with the patient today regarding his chronic pain complaints. He reports that since his last visit, he had all the toes in his right foot amputated by Dr. Mukherjee. He is still following up with him but he did not get any postop pain medications. He states that he is able to manage his pain with the help of the medication through our clinic. No other significant changes were noted and he is managing at this time. I have reviewed his last drug screen and was consistent with care. He also has accurate pill count at his visit today. He does report that he no longer takes the meloxicam so that will be discontinued but refills will be provided on his hydrocodone. He will follow-up with us in a couple months for a biannual visit with Dr. Mix and to continue to monitor his progress. 09/29/2024 Chronic pain syndrome (ICD-10 - G89.4) I had a nice discussion with the patient today regarding his chronic pain complaints. He reports that since his last visit, he had all the toes in his right foot amputated by Dr. Mukherjee. He is still following up with him but he did not get any postop pain medications. He states that he is able to manage his pain with the help of the medication through our clinic. No other significant changes were noted and he is managing at this time. I have reviewed his last drug screen and was consistent with care. He also has accurate pill count at his visit today. He does report that he no longer takes the meloxicam so that will be discontinued but refills will be provided on his hydrocodone. He will follow-up with us in a couple months for a biannual visit with Dr. Mix and to continue to monitor his progress. 12/05/2024 Type 2 diabetes mellitus with diabetic polyneuropathy (ICD-10 - E11.42) 01/29/2025 Type 2 diabetes mellitus with diabetic polyneuropathy (ICD-10 - E11.42) 01/29/2025 Chronic pain syndrome (ICD-10 - G89.4) I had a nice discussion with the patient today regarding his chronic pain complaints. He states he is overall doing well on his current medication regimen lately. He states he is finally back in his shoes after his toe amputations. He states at first when he got on his shoes he was getting blisters but states everything is going well now. He denies any changes in his health since we last seen him or any untoward side effects of the medication. He does report his PCP recently started him on glipizide. He will continue his medication at present level and return to clinic in 2 months to monitor for treatment effectiveness and compliance. The patient continues with chronic pain requiring treatment to help restore function and improve quality of life. Risks of opioid therapy as well as interaction of opioids with alcohol, illicit drugs, muscle relaxers, and other sedative medications are reviewed briefly with patient again today. The patient has trialed all other reasonable treatment options and uses the medication to alleviate pain in order to remain active and rest with less pain. No clinically relevant medication side effects are noted. Last UDS and [employer] COWLING INSTALLER reviewed today. Patient is advised that best long-term goals include increased activity, core strengthening, proper weight management, coping strategies, avoidance of painful triggers, and targeted interventional therapy. We will see the patient for routine follow up in accordance with all clinic policies. We did remind patient today of current guidelines to decrease opioid when possible. We will continue to stress nonopioid treatment. URINE TESTING TODAY; POINT OF SERVICE Urine drug screening will be performed today to monitor compliance with opioid therapy or to serve as a baseline screen for a patient who may be a candidate for opioid therapy in the future, pending UDS results. We will monitor with in-office testing (rapid testing) today and review the results prior to dispensing prescription, as well. Patient has been made aware of this policy. 01/29/2025 Other specific arthropathies, not elsewhere classified, right shoulder (ICD-10 - M12.811) 03/26/2025 Type 2 diabetes mellitus with diabetic polyneuropathy (ICD-10 - E11.42) 03/26/2025 Chronic pain syndrome (ICD-10 - G89.4) I had a nice discussion with the patient today regarding his chronic pain complaints. He is a type II diabetic and had another toe amputated to few months ago. He states he went out of town and did a lot of walking and ended up getting a blister on the bottom of his foot without realizing it. He now has a wound and is in a boot. He is seeing Dr. Cali for wound care right now. He feels he is doing reasonably well on his current medication regimen. I did recommend/discuss ed lifestyle modifications as well as a bowel regimen. He denies any other changes since we last seen him or any untoward side effects of medication. He will continue his medication at present level and return to clinic in 2 months to monitor for treatment effectiveness and compliance. The patient continues with chronic pain requiring treatment to help restore function and improve quality of life. Risks of opioid therapy as well as interaction of opioids with alcohol, illicit drugs, muscle relaxers, and other sedative medications are reviewed briefly with patient again today. The patient has trialed all other reasonable treatment options and uses the medication to alleviate pain in order to remain active and rest with less pain. No clinically relevant medication side effects are noted. Last UDS and AR ENGINE COWLING INSTALLER reviewed today. Patient is advised that best long-term goals include increased activity, core strengthening, proper weight management, coping strategies, avoidance of painful triggers, and targeted interventional therapy. We will see the patient for routine follow up in accordance with all clinic policies. We did remind patient today of current guidelines to decrease opioid when possible. We will continue to stress nonopioid treatment. RECOMMEND URINE TESTING TODAY Urine drug screening will be performed today to monitor compliance with opioid therapy or to serve as a baseline screen for a patient who may be a candidate for opioid therapy in the future, pending UDS results. We will monitor with in-office testing (rapid testing) today and review the results prior to dispensing prescription. All positive results will be sent for quantitative analysis to ensure accuracy and quantify amounts. Any expected positive results that return negative will also be sent for quantitative analysis. Any questionable read or any medication we cannot test for in the office confidently will be sent for quantitative analysis, as well. Patient has been made aware of this policy and agrees to abide by our urine testing policy. 03/26/2025 Other specific arthropathies, not elsewhere classified, right shoulder (ICD-10 - M12.811) 06/01/2025 Type 2 diabetes mellitus with diabetic polyneuropathy (ICD-10 - E11.42) 06/01/2025 Other specific arthropathies, not elsewhere classified, right shoulder (ICD-10 - M12.811) 07/29/2025 Type 2 diabetes mellitus with diabetic polyneuropathy (ICD-10 - E11.42) 07/29/2025 Chronic pain syndrome (ICD-10 - G89.4) I had a nice visit with the patient today regarding his chronic pain issues. He is back in a cast for the left lower extremity. It sounds like he has been following up with Dr. Cali, who discussed surgery, but he has continued to have nonhealing wounds and a number of other issues. We briefly discussed the possibility of amputation higher up, as this may be an option he needs to explore depending on how long this process drags out. It has already been going on for quite some time. He continues to find the current medication regimen relatively effective overall. His UDS and pill counts have been consistent with his treatment regimen. We will continue his medication regimen unchanged. We will follow up in a couple of months and proceed accordingly. 07/29/2025 Other specific arthropathies, not elsewhere classified, right shoulder (ICD-10 - M12.811) 06/01/2025 Chronic pain syndrome (ICD-10 - G89.4) 06/01/2025 Chronic pain syndrome (ICD-10 - G89.4) I had a nice discussion with the patient today regarding his chronic pain complaints. He continues with multisite pain. His main issue is dealing with the wound on his foot still. He states it is just not wanting to heal and they cannot do surgery until it is healed. He is still in a boot. This has been very frustrating for him. He denies any other changes in his health since we last seen him or any untoward side effects of medication. I did discuss lifestyle modifications as well as a bowel regimen. He will continue his medication at present level and return to clinic in 2 months to monitor for treatment effectiveness and compliance as well as for biannual appointment with Dr. Krafft. The patient continues with chronic pain requiring treatment to help restore function and improve quality of life. Risks of opioid therapy as well as interaction of opioids with alcohol, illicit drugs, muscle relaxers, and other sedative medications are reviewed briefly with patient again today. The patient has trialed all other reasonable treatment options and uses the medication to alleviate pain in order to remain active and rest with less pain. No clinically relevant medication side effects are noted. Last UDS and [employer] COWLING INSTALLER reviewed today. Patient is advised that best long-term goals include increased activity, core strengthening, proper weight management, coping strategies, avoidance of painful triggers, and targeted interventional therapy. We will see the patient for routine follow up in accordance with all clinic policies. We did remind patient today of current guidelines to decrease opioid when possible. We will continue to stress nonopioid treatment. RECOMMEND URINE TESTING TODAY Urine drug screening will be performed today to monitor compliance with opioid therapy or to serve as a baseline screen for a patient who may be a candidate for opioid therapy in the future, pending UDS results. We will monitor with in-office testing (rapid testing) today and review the results prior to dispensing prescription. All positive results will be sent for quantitative analysis to ensure accuracy and quantify amounts. Any expected positive results that return negative will also be sent for quantitative analysis. Any questionable read or any medication we cannot test for in the office confidently will be sent for quantitative analysis, as well. Patient has been made aware of this policy and agrees to abide by our urine testing policy. 03/26/2025 Chronic pain syndrome (ICD-10 - G89.4) 01/29/2025 Chronic pain syndrome (ICD-10 - G89.4) 03/26/2025 Unspecified abnormalities of gait and mobility (ICD-10 - R26.9) 01/29/2025 Other specific arthropathies, not elsewhere classified, right shoulder (ICD-10 - M12.811) 12/05/2024 Chronic pain syndrome (ICD-10 - G89.4) I had a nice visit with the patient today regarding his chronic pain issues. He's healing up pretty well from the most recent toe amputations and he currently has no toes left. He is tolerating the pain medications fine so for now we will continue those and plan to see him back in about 2 months. RECOMMEND URINE TESTING TODAY Urine drug screening will be performed today to monitor compliance with opioid therapy or to serve as a baseline screen for a patient who may be a candidate for opioid therapy in the future, pending UDS results. We will monitor with in-office testing (rapid testing) today and review the results prior to dispensing prescription. All positive results will be sent for quantitative analysis to ensure accuracy and quantify amounts. Any expected positive results that return negative will also be sent for quantitative analysis. Any questionable read or any medication we cannot test for in the office confidently will be sent for quantitative analysis, as well. Patient has been made aware of this policy and agrees to abide by our urine testing policy. The patient continues with chronic pain requiring treatment to help restore function and improve quality of life. Risks of opioid therapy as well as interaction of opioids with alcohol, illicit drugs, muscle relaxers, and other sedative medications are reviewed briefly with patient again today. The patient has trialed all other reasonable treatment options and uses the medication to alleviate pain in order to remain active and rest with less pain. No clinically relevant medication side effects are noted. Last UDS and AR [employer] COWLING INSTALLER reviewed today. Patient is advised that best long-term goals include increased activity, core strengthening, proper weight management, coping strategies, avoidance of painful triggers, and targeted interventional therapy. We will see the patient for routine follow up in accordance with all clinic policies. We did remind patient today of current guidelines to decrease opioid when possible. We will continue to stress nonopioid treatment. 09/29/2024 Other specific arthropathies, not elsewhere classified, right shoulder (ICD-10 - M12.811) I had a nice discussion with the patient today regarding his chronic pain complaints. He reports that since his last visit, he had all the toes in his right foot amputated by Dr. Mukherjee. He is still following up with him but he did not get any postop pain medications. He states that he is able to manage his pain with the help of the medication through our clinic. No other significant changes were noted and he is managing at this time. I have reviewed his last drug screen and was consistent with care. He also has accurate pill count at his visit today. He does report that he no longer takes the meloxicam so that will be discontinued but refills will be provided on his hydrocodone. He will follow-up with us in a couple months for a biannual visit with Dr. Mix and to continue to monitor his progress. 09/29/2024 Other specific arthropathies, not elsewhere classified, left shoulder (ICD-10 - M12.812) I had a nice discussion with the patient today regarding his chronic pain complaints. He reports that since his last visit, he had all the toes in his right foot amputated by Dr. Mukherjee. He is still following up with him but he did not get any postop pain medications. He states that he is able to manage his pain with the help of the medication through our clinic. No other significant changes were noted and he is managing at this time. I have reviewed his last drug screen and was consistent with care. He also has accurate pill count at his visit today. He does report that he no longer takes the meloxicam so that will be discontinued but refills will be provided on his hydrocodone. He will follow-up with us in a couple months for a biannual visit with Dr. Mix and to continue to monitor his progress. 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 (ICD-10 - Z79.891) 07/29/2025 Other specific arthropathies, not elsewhere classified, left shoulder (ICD-10 - M12.812) 06/01/2025 Other specific arthropathies, not elsewhere classified, left shoulder (ICD-10 - M12.812) 03/26/2025 Other specific arthropathies, not elsewhere classified, left shoulder (ICD-10 - M12.812) 01/29/2025 Unspecified abnormalities of gait and mobility (ICD-10 - R26.9) 12/05/2024 Other specific arthropathies, not elsewhere classified, left shoulder (ICD-10 - M12.812) 09/29/2024 Unspecified abnormalities of gait and mobility (ICD-10 - R26.9) I had a nice discussion with the patient today regarding his chronic pain complaints. He reports that since his last visit, he had all the toes in his right foot amputated by Dr. Mukherjee. He is still following up with him but he did not get any postop pain medications. He states that he is able to manage his pain with the help of the medication through our clinic. No other significant changes were noted and he is managing at this time. I have reviewed his last drug screen and was consistent with care. He also has accurate pill count at his visit today. He does report that he no longer takes the meloxicam so that will be discontinued but refills will be provided on his hydrocodone. He will follow-up with us in a couple months for a biannual visit with Dr. Mix and to continue to monitor his progress. 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 He reports that since his last visit, he had all the toes in his right foot amputated by Dr. Mukherjee. He is still following up with him but he did not get any postop pain medications. He states that he is able to manage his pain with the help of the medication through our clinic. No other significant changes were noted and he is managing at this time. I have reviewed his last drug screen and was consistent with care. He also has accurate pill count at his visit today. He does report that he no longer takes the meloxicam so that will be discontinued but refills will be provided on his hydrocodone. He will follow-up with us in a couple months for a biannual visit with Dr. Mix and to continue to monitor his progress. 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 We will monitor with in-office testing (rapid testing) today and review the results prior to dispensing prescription. All positive results will be sent for quantitative analysis to ensure accuracy and quantify amounts. Any expected positive results that return negative will also be sent for quantitative analysis. Any questionable read or any medication we cannot test for in the office confidently will be sent for quantitative analysis, as well. Patient has been made aware of this policy and agrees to abide by our urine testing policy. 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131A) 01/29/2025 Complete traumatic amputation of one left lesser toe, initial encounter (ICD-10 - S98.132A) 06/01/2025 Complete traumatic amputation of one left lesser toe, initial encounter (ICD-10 - S98.132A) 12/05/2024 Other I, Nino Woodard, am scribing for Dr. Tito Santiago. I, Dr. Tito Santiago, personally performed the services described in this documentation, as scribed by Nino Woodard, and it is both accurate and complete. 07/29/2025 Other Hanh, Allison Rome, ayden scribing for Dr. Tito Santiago. I, Dr. Tito Santiago, personally performed the services described in this documentation, as scribed by Allison Rome, and it is both accurate and complete. Plan Of Treatment Next Appt Details Provider Name:Lucina hay, 10/01/2025 09:20:00 AM, [address] [place], [place], [address], Insurance Providers Payer Name Payer Address Payer Phone Subscriber Number Group Number Insured Name Patient Relationship to Insured Coverage Start Date Coverage End Date [place] Medicaid [address] [place] [address] [id number] Braxton Rosales Self - patient is the insured Medical (General) History Medical History History ICD Code Cancer, Diabetes, High blood pressure, Surgical History Surgery Date(Month/Year) Finger surgery hernia Skin Cancer Removal Toe amputation
[2025-09-23] MEDS: metoprolol succinate ER (24 HR) 50 mg Tablet PO (22:06)
[2025-09-23] MEDS: oxyCODONE 5 mg IR Tab/Cap 10 MG PO (22:07)
[2025-09-23] MEDS: piperacillin-tazobactam 4.5 GM in sodium chloride 0.9% (plus) 50 ML IV (22:20)
[2025-09-23 22:21] LABS: Lactic Sepsis W/Reflex 1.0 mmol/L (0.5-2.2)
--- NOTE | 2025-09-23 23:24 | PM.HP ---
Providers/Chief Complaint Admitting Physician: Jewel Prasad MD Primary Care Provider: Tito Puentes MD Chief Complaint: Possible Bone infection Dr Cali History of Present Illness Braxton Rosales is a 55 year old male with diabetic neuropathy and CKD 3 has had recurrent diabetic foot ulcers with bilateral toe amputations of all his toes bilaterally. His last amputation was 2 years ago including the third and fourth toes of the left foot. Patient had a grape sized bulging ulcer on his left foot debrided on August 25. He has been on antibiotics since that time including Bactrim. Patient's foot inflammation has continued to worsen with cellulitis, soft tissue infection and suspected osteomyelitis. He also has acute kidney injury presumably from the Bactrim. Patient reports he has had MRSA in his wound. Patient's white count is 11 hide normal compared to baseline around 6 and see reactive protein is elevated at 63. He has had chills and sweats but no measured fevers. A1c he says runs at 6.3 and indeed it was 6.3 in August. Blood sugars currently 170 by his continuous blood glucose monitor Review of Systems Narrative: General No measured fevers she has had chills sweats and some weight gain Cardiovascular no chest pain or palpitations he has had foot swelling left foot and ankle Respiratory no shortness of breath cough wheezing GI no nausea vomiting he has loose stools once a day since being on chronic antibiotics no dysuria hematuria Neuro no seizures strokes limb weakness Malignancy history negative Hematologic negative for blood clots in legs or lungs Psych never been admitted to the hospital for depression or anxiety Medications/Allergies Home Medications ?Medication ?Instructions ?Recorded ?Confirmed ?Last Taken ?Type Toe Filler #1 ea 09/12/22 09/23/25 Unknown Rx cam walker #1 ea 03/27/24 09/23/25 Unknown Rx hydrocodone 10 mg-acetaminophen 1 tab PO Q6H PRN Pain 09/22/24 09/23/25 08/25/25 History 325 mg tablet Diabetic Shoes with toe filler to #1 ea 10/28/24 09/23/25 Unknown Rx left and right Blood Glucose Meter #1 ea 01/23/25 09/23/25 Unknown Rx Blood Glucose Test Strips #100 ea 01/23/25 09/23/25 Unknown Rx blood-glucose,potato sorter,cont #1 ea 02/11/25 09/23/25 Unknown Rx (Dexcom G7 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) doxepin 100 mg capsule 200 mg (2 x 100 mg) PO BEDTIME #60 03/26/25 09/23/25 08/23/25 Rx caps blood-glucose sensor (Dexcom G7 #9 ea 05/04/25 09/23/25 Unknown Rx Sensor device) pen needle, diabetic 32 gauge x #100 ea 05/07/25 09/23/25 Unknown Rx 5/32 (TechLITE Pen Needle) metoprolol succinate 50 mg 50 mg PO BEDTIME #90 tabs 07/13/25 09/23/25 08/24/25 Rx tablet,extended release 24 hr aspirin 81 mg tablet,delayed 81 mg PO DAILY #90 tabs 07/17/25 09/23/25 08/23/25 Rx release lisinopril 40 mg tablet 40 mg PO DAILY #90 tabs 07/30/25 09/23/25 08/23/25 Rx dulaglutide 0.75 mg/0.5 mL 0.75 mg SUBCUT Q7W 08/17/25 09/23/25 08/16/25 History subcutaneous pen injector (Trulicity) insulin aspart U-100 100 unit/mL 20 unit SUBCUT TID 08/17/25 09/23/25 08/23/25 History (3 mL) subcutaneous pen (Novolog FlexPen U-100 Insulin aspart) insulin glargine 100 unit/mL (3 33 unit SUBCUT BEDTIME 08/17/25 09/23/25 08/23/25 History mL) subcutaneous pen (Lantus Solostar U-100 Insulin) hydroxyzine HCl 50 mg tablet 50 mg PO QID PRN insomnia #120 tabs 08/20/25 09/23/25 08/23/25 Rx fenofibrate nanocrystallized 145 145 mg PO DAILY #90 tabs 09/07/25 09/23/25 Unknown Rx mg tablet sulfamethoxazole 800 1 tab PO BID #14 tabs 09/14/25 09/23/25 Unknown Rx mg-trimethoprim 160 mg tablet (Bactrim DS) Allergies Allergy/AdvReac Type Severity Reaction Status Date / Time No Known Allergies Allergy Verified 09/23/25 14:18 PFSH Acute PFSH: Medical History (Updated 09/23/25 @ 23:33 by Jewel Prasad MD) Cellulitis of right foot Psychiatric care History of nonmelanoma skin cancer History of malignant melanoma Chronic pain in right foot Diabetes mellitus with polyneuropathy Cellulitis and abscess of right lower extremity Non-pressure chronic ulcer of other part of right foot with necrosis of bone Dyslipidemia Acute renal failure Cellulitis of leg, right Hallux rigidus, right foot Sleep apnea in adult Restless leg syndrome Dyslipidemia Encounter for long-term use of opiate analgesic Shoulder pain Diverticulosis Type 2 diabetes mellitus with other diabetic neurological complication Essential (primary) hypertension CHF (congestive heart failure) Amputated great toe Wound dehiscence, surgical Surgical History History of amputation of right great toe History of amputation of left great toe History of colonoscopy 2018 History of inguinal hernia repair, bilateral 1970,1977 History of ankle surgery Hx of amputation of lesser toe Left foot big toe and second toe 01/21/20 at [facility] Dr. Leal Status post PICC central line placement H/O hernia repair History of amputation of lesser toe of right foot Family History Mother Cancer Other Dyslipidemia Denies family history of Diabetes CAD (coronary artery disease) Clotting disorder Dementia Hyperlipidemia Psychiatric illness Chronic kidney disease (CKD) Suicide Anesthesia complication Bleeding disorder Family history of premature coronary artery disease Lung disease Hypertension Stroke Social History (Updated 09/23/25 @ 23:29 by Jewel Prasad MD) Smoking and tobacco/nicotine status: unknown if used tobacco/nicotine Second hand smoke exposure: Yes Alcohol intake: current Alcohol intake frequency: holidays/special occasions only Alcohol use comment: 2 drinks in the last 3 years Substance/Drug Use: former Date of last use: 2012 Former substance use details: Previously used meth and weed Additional social history: Patient wants full code as discussed with Jewel Prasad MD on 09/23/2025 patient is retired or disabled from [employer] working in [employer]. Jacobo his cousin lives with him and Awa Glaser who lives in [place] is his next of kin if he is unable to make decisions. 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, 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 Pets and animals: Yes (Cade) Pets & animals: dog(s) Leisure activites: games and other Leisure activities details: watch TV Sexually active: No Do you think of yourself as: Straight/Heterosexual Current gender identity: Male Yolande/Mormonism: None Special yolande needs: No Agree to transfusion: Yes Vitals/I&O/Wt Last Vital Signs Temp 97.9 F 09/23/25 17:52 Pulse 69 09/23/25 22:53 Resp 16 09/23/25 22:07 BP 133/68 09/23/25 22:53 Pulse Ox 95 09/23/25 22:53 O2 Del Method Room Air 09/23/25 22:53 09/23/25 09/23/25 09/24/25 14:59 22:59 06:59 Intake Total 1050 / 1050 Balance 1050 / 1050 Weight last 48 hrs Weight 115.666 kg Physical Exam Narrative: General well-developed well-nourished male in no acute cardiopulmonary stress CV regular rate and rhythm Lungs clear to auscultation bilaterally Abdomen positive bowel tones soft nontender Back is mild flank tenderness left greater than right Calves left side 1+ edema with an enlarged right side not enlarged Bilateral foot amputations noted the left dorsal foot is inflamed edematous and boggy but not obvious fluctuant area. See images Patient with numbness below the mid tibia lower leg bilaterally and cannot feel his foot and is not painful to touch even on the inflamed left foot Extremity: OTHER: Data 09/23/25 20:22 09/23/25 20:22 A&P Assessment and plan 1. Osteomyelitis due to type 2 diabetes mellitus: Patient will be treated with vancomycin and Zosyn pending MRI of the foot tomorrow and anticipate that he will need surgery likely further amputation. Appears to be severe soft tissue infection and some decreased bone density along his plain film hey looks MTP amputation 2. Cellulitis of foot, left: As above history of MRSA continue with vancomycin plus Zosyn for polymicrobial infection given his diabetes 3. CKD stage 3a, GFR 45-59 ml/min: Lisinopril was held. Patient is not on any metformin given his diminished GFR. Bactrim will be stopped. If given in the future he needs to be short course and monitored closely given nephrotoxicity and his CKD 4. Acute kidney injury due to nephrotoxicity: As above we will give saline hydration and diuresis if needed 5. Diabetes mellitus: Resume home Lantus and home preprandial short acting insulin 6. Diabetic neuropathy: Consider gabapentin or Lyrica but patient is not having much pain and I am not sure will actually improve his numbness PDMP PDMP Reviewed: Not Reviewed Attestations Medical Necessity Statement*: Patient mid to the hospital with antibiotics with intended MRI and surgery and will require greater than 2 midnights in hospital Coding Level of Care Code Acute Code for [facility] Diagnoses Osteomyelitis due to type 2 diabetes mellitus E11.69; M86.9 Cellulitis of foot, left L03.116 CKD stage 3a, GFR 45-59 ml/min N18.31 Acute kidney injury due to nephrotoxicity N17.8; N14.4 Diabetes mellitus E11.9 Diabetic neuropathy E11.40 Time Spent (min) 76
[2025-09-23] MEDS: heparin 5,000 unit/mL INJ 1 mL 5000 UNIT SUBCUT (23:53)
[2025-09-23] MEDS: insulin glargine 100 units/1 mL 33 UNIT SUBCUT (23:54)
[2025-09-24] MEDS: HYDROcodone-acetaminophen 10-325 mg Tablet 1 TAB PO ×4 (00:46→21:09)
[2025-09-24 04:00] VITALS: BP 115/67; PULSE 64; RESP 17; TEMP 37.1; O2SAT 90
[2025-09-24] MEDS: piperacillin-tazobactam 3.375 GM in sodium chloride 0.9% (plus) 50 ML IV ×3 (06:55→21:03)
[2025-09-24 07:37] LABS: Anion Gap 15.5 (5-19); Blood Urea Nitrogen 46 mg/dL (6-20); Calcium 8.2 mg/dL (8.5-10.5); Carbon Dioxide 20 mmol/L (22-29); Chloride 106 mmol/L (98-107); Glucose 159 mg/dL (65-115); Magnesium 2.2 mg/dL (1.7-2.3); Osmolality Calculated 299 mOsm/kg (285-295); Potassium 4.5 mmol/L (3.5-5.1); Sodium 137 mmol/L (136-145)
[2025-09-24 07:58] VITALS: BP 120/68; PULSE 66; RESP 18; TEMP 36.6; O2SAT 91
[2025-09-24 09:51] LABS: Procalcitonin 0.14 ng/mL (0-0.5); Thyroid Stimulating Hormone 6.26 uIU/mL (0.27-4.20); Vitamin B12 381 pg/mL (232-1245)
[2025-09-24 10:04] LABS: Total Iron Binding Capacity 291 mcg/dl; Unsaturated Iron Binding 242 ug/dL (112-347)
[2025-09-24 10:16] LABS: Iron 49 ug/dL (59-158)
--- NOTE | 2025-09-24 11:19 | PM.PN ---
Subjective Subjective: Admitted overnight. H&P labs appreciated Examination patient sitting comfortably in bed. Denies any nausea vomiting, headache, fever, pain. Has remained hemodynamically stable and afebrile since admission. Vitals/I&O/Wt Last Vital Signs Temp 97.8 F 09/24/25 07:58 Pulse 66 09/24/25 07:58 Resp 18 09/24/25 07:58 BP 120/68 09/24/25 07:58 Pulse Ox 91 09/24/25 07:58 O2 Del Method Room Air 09/24/25 04:00 09/23/25 09/24/25 09/24/25 22:59 06:59 14:59 Intake Total 1450 / 1450 1290 / 1290 Output Total 300 / 300 400 / 400 Balance 1150 / 1150 890 / 890 Weight last 48 hrs Weight 116.573 kg Weight 119.295 kg Weight 116.12 kg Weight 115.666 kg Physical Exam Narrative: General well-developed well-nourished male in no acute cardiopulmonary stress CV regular rate and rhythm Lungs clear to auscultation bilaterally Abdomen positive bowel tones soft nontender Back is mild flank tenderness left greater than right Calves left side 1+ edema with an enlarged right side not enlarged Bilateral foot amputations noted the left dorsal foot is inflamed edematous and boggy but not obvious fluctuant area. See images Patient with numbness below the mid tibia lower leg bilaterally and cannot feel his foot and is not painful to touch even on the inflamed left foot Extremity: OTHER: Data 09/23/25 20:22 09/24/25 06:13 Micro: Microbiology 09/24/25 10:29 Blood Culture - Preliminary Blood SPECIMEN COLLECTED 09/24/25 10:25 Blood Culture - Preliminary Blood SPECIMEN COLLECTED A&P Assessment and plan 1. Osteomyelitis due to type 2 diabetes mellitus: Patient will be treated with vancomycin and Zosyn pending MRI of the foot tomorrow and anticipate that he will need surgery likely further amputation. Appears to be severe soft tissue infection and some decreased bone density along his plain film hey looks MTP amputation 2. Cellulitis of foot, left: As above history of MRSA continue with vancomycin plus Zosyn for polymicrobial infection given his diabetes 3. CKD stage 3a, GFR 45-59 ml/min: Lisinopril was held. Patient is not on any metformin given his diminished GFR. Bactrim will be stopped. If given in the future he needs to be short course and monitored closely given nephrotoxicity and his CKD 4. Acute kidney injury due to nephrotoxicity: As above we will give saline hydration and diuresis if needed 5. Diabetes mellitus: Resume home Lantus and home preprandial short acting insulin 6. Diabetic neuropathy: Consider gabapentin or Lyrica but patient is not having much pain and I am not sure will actually improve his numbness Plan: Plan for the day: Concern for possible osteomyelitis with open wound. Podiatry has been consulted from the ER. Continue with empiric IV vancomycin and Zosyn for now as per past culture history. In the past patient's wound has grown MRSA, strep, Corynebacterium, Enterobacter, Klebsiella. For now vancomycin and Zosyn should cover. Plan for MRI later in the day today. Will discuss with podiatry for further surgical treatment plan. Patient most likely will need 4 to 6 weeks of IV antibiotics. Will confirm operative plan before making a decision. If needed will consult ID. GOLDIE on CKD. Most likely in setting of ATN from recent Bactrim along with lisinopril. Medically suspicion for nephrotoxic drugs. Continue with NS at 100 cc/h. Repeat BMP in AM. Goal blood pressure less than 140/90 mmhg. Continue with current medications. Holding off on lisinopril given GOLDIE. Appreciate A1c. Continue with home dose of Lantus. Given GOLDIE will decrease home Humalog to 15 units 3 times daily. Add sliding scale and hypoglycemia protocol. Full code. Carb consistent diet. Heparin 5000-calorie DVT prophylaxis. Famotidine for PUD prophylaxis PDMP PDMP Reviewed: Not Reviewed Attestations Medical Necessity Statement*: Requires further hospitalization for management of osteomyelitis of the foot as patient requires surgical correction and possibly IV antibiotics, GOLDIE on CKD in setting of hypertension, type 2 diabetes mellitus Diagnoses Osteomyelitis due to type 2 diabetes mellitus E11.69; M86.9 Cellulitis of foot, left L03.116 CKD stage 3a, GFR 45-59 ml/min N18.31 Acute kidney injury due to nephrotoxicity N17.8; N14.4 Diabetes mellitus E11.22; N18.30 Chronic kidney disease stage: stage 3 (moderate) Chronic kidney disease stage 3 subtype: unspecified whether 3a or 3b Diabetes mellitus complication detail: with chronic kidney disease Diabetes mellitus complication status: with kidney complications Diabetes mellitus senior care insulin 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
[2025-09-24 11:43] VITALS: BP 116/68; PULSE 64; RESP 18; TEMP 36.5; O2SAT 93
[2025-09-24] MEDS: heparin 5,000 unit/mL INJ 1 mL 5000 UNIT SUBCUT (12:09)
--- NOTE | 2025-09-24 13:29 | MRR_ITS ---
PROCEDURE INFORMATION: Exam: MR Left Lower Extremity Other Than Joint Without Contrast; Foot Exam date and time: 09/24/2025 5:10 PM Age: 55 years old Clinical indication: Edema; Yes, it is localized; Prior surgery; Surgery date: 6+ months; Surgery type: Amputation; Additional info: Osteo along wth abscess TECHNIQUE: Imaging protocol: Magnetic resonance imaging of the left lower extremity without contrast. Exam focused on the foot. COMPARISON: CR XR foot LT min 3V* [id number] 09/23/2025 2:47 PM FINDINGS: Bones/joints: There has been previous transmetatarsal amputation of all 5 toes. On T2 weighted images and STIR images increased signal intensity involving the higher remaining 1st metatarsal and 2nd metatarsal. Also increased signal intensity involving the tip of the remaining 3rd metatarsal. Findings are those of osteomyelitis. There cortical loss over the distal ends of the 1st and 2nd remaining metatarsal. Soft tissues: Diffuse edema and cellulitis of the right ankle and right foot. Abscess seen surrounding the remaining 1st metatarsal distal remaining 2nd metatarsal and adjacent to the tip of the remaining 3rd metatarsal. Air in the soft tissues. MR/MR foot LT wo con* [id number] IMPRESSION: 1. Transmetatarsal amputation of the 1st through 5th toes. 2. Increased signal intensity on STIR and T2 weighted images of the entire remaining 1st and 2nd metatarsal in the tip of the remaining 3rd metatarsal. Cortical loss seen involving the distal remaining 1st and 2nd metatarsals. 3. Soft tissue abscess surrounding the remaining 1st metatarsal, surrounding the distal remaining 2nd metatarsal and the tip of the remaining 3rd metatarsal. 4. Diffuse edema/cellulitis ankle and foot.
--- NOTE | 2025-09-24 13:37 | P.CONIM_ITS ---
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 Started Bactrim 09/14/2025 with minimal improvement. Review of Systems 2 General: Reports: 10 or more systems reviewed and unremarkable except in HPI and below Const: Denies: fever(s) or chills Eyes: Denies: change in vision Card: Denies: chest pain or palpitations Resp: Denies: dyspnea or productive cough GI: Denies: abdominal pain, nausea or vomiting : Denies: flank pain Musc: Reports: extremity swelling, joint stiffness and deformity Skin/Breast: Reports: erythema, sores, changes in skin color, dry skin, nail changes and change in hair Neuro: Reports: numbness in extremities, sensory changes and difficulty walking Psych: Denies: suicidal ideation Endo: Denies: change in body appearance North/Lymph: Denies: tender lymph nodes Medications/Allergies Home Medications ?Medication ?Instructions ?Recorded ?Confirmed ?Last Taken ?Type Toe Filler #1 ea 09/12/22 09/24/25 Unkn own Rx cam walker #1 ea 03/27/24 09/24/25 Unkn own Rx hydrocodone 10 mg-acetaminophen 1 tab PO Q6H PRN Pain 09/22/24 09/24/25 09/23/25 History 325 mg tablet Diabetic Shoes with toe filler to #1 ea 10/28/2409/14 Unknown Rx left and right Blood Glucose Meter #1 ea 01/23/25 09/24/25 Unkn own Rx Blood Glucose Test Strips #100 ea 01/23/25 09/24/25 Un known Rx blood-glucose,bottling line attendant,cont #1 ea 02/11/25 09/24/25 Un known Rx (Dexcom G7 Statistical Secretary) doxepin 100 mg capsule 200 mg (2 x 100 mg) PO BEDTI ME #60 03/26/25 09/24/25 09/22/25 Rx caps blood-glucose sensor (Dexcom G7 #9 ea 05/04/25 5 Unknown Rx Sensor device) pen needle, diabetic 32 gauge x #100 ea 05/07/2509/24 Unknown Rx (TechLITE Pen Needle) metoprolol succinate 50 mg 50 mg PO BEDTIME #90 tabs 0 07/13/25 09/24/25 09/23/25 Rx tablet,extended release 24 hr aspirin 81 mg tablet,delayed 81 mg PO DAILY #90 tabs 1 09/24/25 09/23/25 Rx release lisinopril 40 mg tablet 40 mg PO DAILY #90 tabs 07/1509/24/25 09/23/25 Rx dulaglutide 0.75 mg/0.5 mL 0.75 mg SUBCUT Q7D 08/17/25 09/24/25 09/20/25 History subcutaneous pen injector (Trulicity) insulin aspart U-100 100 unit/mL 20 unit SUBCUT TID 09/24/25 09/23/25 History (3 mL) subcutaneous pen (Novolog FlexPen U-100 Insulin aspart) insulin glargine 100 unit/mL (3 33 unit SUBCUT BEDTIME 08/17/25 09/24/25 09/23/25 History mL) subcutaneous pen (Lantus Solostar U-100 Insulin) hydroxyzine HCl 50 mg tablet 50 mg PO QID PRN insomnia #120 tabs 08/20/25 09/24/25 09/22/25 Rx fenofibrate nanocrystallized 145 145 mg PO DAILY #90 t abs 09/07/25 09/24/25 09/23/25 Rx mg tablet meloxicam 15 mg tablet 15 mg PO DAILY PRN Pain 09/1409/24/25 Unknown History prednisolone acetate 1 % eye 1 drp ophthalmic (eye) QI D 09/24/25 09/24/25 Unknown History drops,suspension Allergies Allergy/AdvReac Type Severity Reaction Status Date / Time No Known Allergies Allergy Verified 09/23/25 14:18 Current Medications Generic Name Dose Route Start Last Admin Trade Name Freq PRN Reason Stop Dose Admin Hydrocodone Bitart/Acetaminophen 1 tab 09/23/25 23:17 09/25/25 04:53 Hydrocodone-Acetaminophen 10-325 Mg Tablet PO 1 tab On Hold: 09/25/25 12:11 Q6H PRN Administration Comment: Order held by Process PAIN Transfer Aspirin 81 mg 09/24/25 05:00 09/25/25 04:52 Aspirin 81 Mg Ec Tablet PO 81 mg On Hold: 09/25/25 12:11 DAILY ELISE Administration Comment: Order held by Process Transfer Doxepin HCl 200 mg 09/24/25 00:24 09/24/25 21:02 Doxepin 50 Mg Capsule PO 200 mg On Hold: 09/25/25 12:11 BEDTIME ELISE Administration Comment: Order held by Process Transfer Fenofibrate 145 mg 09/24/25 05:00 09/25/25 04:53 Fenofibrate 145 Mg Tablet PO 145 mg On Hold: 09/25/25 12:11 DAILY ELISE Administration Comment: Order held by Process Transfer Heparin Sodium (Porcine) 5,000 unit 09/23/25 23:15 09/25/25 12:05 Heparin 5,000 Unit/Ml Inj 1 Ml SUBCUT Not Given On Hold: 09/25/25 12:11 Q12H ELISE Comment: Order held by Process Transfer Hydralazine HCl 25 mg 09/24/25 05:00 09/25/25 12:05 Hydralazine 25 Mg Tablet PO Not Given On Hold: 09/25/25 12:11 TID ELISE Comment: Order held by Process Transfer Sodium Chloride 1,000 mls @ 100 mls/hr 09/23/25 23:15 09/25/25 04:57 Sodium Chloride 0.9% IV 09/25/25 16:00 100 mls/hr On Hold: 09/25/25 12:11 .Q10H ELISE Administration Comment: Order held by Process Transfer Piperacillin Sod/Tazobactam 50 mls @ 12.5 mls/hr 09/24/25 06:30 09/25/25 09:42 Sod 3.375 gm/ Sodium Chloride IV 12.5 mls/hr On Hold: 09/25/25 12:11 Q8H ELISE Administration Comment: Order held by Process Transfer Insulin Glargine 33 unit 09/23/25 23:44 09/24/25 21:14 Insulin Glargine 100 Units/1 Ml SUBCUT 33 unit On Hold: 09/25/25 12:11 BEDTIME ELISE Administration Comment: Order held by Process Transfer Insulin Human Lispro 0 unit 09/24/25 12:00 09/25/25 11:49 Insulin Lispro 100 Unit/1 Ml SUBCUT Not Given On Hold: 09/25/25 12:11 WM&BEDTIME ELISE Comment: Order held by Process Protocol Transfer Insulin Human Lispro 15 unit 09/24/25 13:00 09/25/25 11:49 Insulin Lispro 100 Unit/1 Ml SUBCUT Not Given On Hold: 09/25/25 12:11 TID ELISE Comment: Order held by Process Transfer Metoprolol Succinate 50 mg 09/23/25 22:00 09/24/25 21:03 Metoprolol Succinate Er (24 Hr) 50 Mg Tablet PO 50 mg On Hold: 09/25/25 12:11 BEDTIME ELISE Administration Comment: Order held by Process Transfer PFSH Acute 2 PFSH: Medical History (Updated 09/26/25 @ 07:14 by Ernesto Cali DPM) Cellulitis of right foot Psychiatric care History of nonmelanoma skin cancer History of malignant melanoma Chronic pain in right foot Diabetes mellitus with polyneuropathy Cellulitis and abscess of right lower extremity Non-pressure chronic ulcer of other part of right foot with necrosis of bone Dyslipidemia Acute renal failure Cellulitis of leg, right Hallux rigidus, right foot Sleep apnea in adult Restless leg syndrome Dyslipidemia Encounter for long-term use of opiate analgesic Shoulder pain Diverticulosis Type 2 diabetes mellitus with other diabetic neurological complication Essential (primary) hypertension CHF (congestive heart failure) Amputated great toe Wound dehiscence, surgical Surgical History History of amputation of right great toe History of amputation of left great toe History of colonoscopy 2018 History of inguinal hernia repair, bilateral 1970,1977 History of ankle surgery Hx of amputation of lesser toe Left foot big toe and second toe 01/21/20 at [facility] [place] Dr. Leal Status post PICC central line placement H/O hernia repair History of amputation of lesser toe of right foot Family History Mother Cancer Other Dyslipidemia Denies family history of Diabetes CAD (coronary artery disease) Clotting disorder Dementia Hyperlipidemia Psychiatric illness Chronic kidney disease (CKD) Suicide Anesthesia complication Bleeding disorder Family history of premature coronary artery disease Lung disease Hypertension Stroke Social History (Updated 09/23/25 @ 23:29 by Jewel Prasad MD) Smoking and tobacco/nicotine status: unknown if used tobacco/nicotine Second hand smoke exposure: Yes Alcohol intake: current Alcohol intake frequency: holidays/special occasions only Alcohol use comment: 2 drinks in the last 3 years Substance/Drug Use: former Date of last use: 2012 Former substance use details: Previously used meth and weed Additional social history: Patient wants full code as discussed with Jewel Prasad MD on 09/23/2025 patient is retired or disabled from [employer] working in [employer]. Jacobo his cousin lives with him and Awa Glaser who lives in [place] is his next of kin if he is unable to make decisions. Patient states he was in the [employer] Adopted: No Caregiver/support person: No Lives independently: Yes Household members: none Housing: House Marital status: Single Number of children: 0 Number of grandchildren: 0 Highest education level completed: High School Graduate service: Yes status: Discharged status details: discharged with cause branch: [facility] branch details: discharged after 3 years Assignments: Outside [facility] ([facility]) Known or Potential Exposure: Post Traumatic Stress Disorder (PTSD) Current occupational status: disabled Previous occupational history: [employer]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 Pets and animals: Yes (Sassy) Pets & animals: dog(s) Leisure activites: games and other Leisure activities details: watch TV Sexually active: No Do you think of yourself as: Straight/Heterosexual Current gender identity: Male Yolande/Samaritan: None Special yolande needs: No Agree to transfusion: Yes Vitals/I&O/Wt Last Vital Signs Temp 97.8 F 09/25/25 13:30 Pulse 56 L 09/25/25 13:30 Resp 20 H 09/25/25 13:30 BP 140/66 09/25/25 13:30 Pulse Ox 93 09/25/25 13:30 O2 Del Method Room Air 09/25/25 13:30 O2 Flow Rate 8 09/25/25 13:20 09/24/25 09/25/25 09/25/25 22:59 06:59 14:59 Intake Total 290 / 2700 1860 / 4560 0 / 0 Output Total 500 / 1300 680 / 1980 215 / 215 Balance -210 / 1400 1180 / 2580 -215 / -215 Weight last 48 hrs Weight 261 lb Weight 257 lb Weight 263 lb Weight 256 lb Weight 255 lb Physical Exam 2 Narrative: GENERAL: Patient is alert and oriented ?3 and in no acute distress. The following is a focused left lower extremity exam. VASCULAR: Dorsalis pedis and posterior tibial arteries palpable. Capillary refill time less than 3 seconds to the TMA stump left foot. Calf is supple and nontender proximally and distally. Edema to the left forefoot. NEUROLOGICAL: Protective sensation absent to the lower extremities. DERMATOLOGICAL: Tunneling wound to the dorsum of the left medial forefoot with surrounding erythema and purulence tunnels 3 cm at the dorsum of the left forefoot. Erythema encompassing the right foot to the level of the anterior ankle without proximal lymphangitic streaking. MUSCULOSKELETAL: Status post left transmetatarsal amputation. Data 09/26/25 04:19 09/26/25 04:19 Micro: Microbiology 09/24/25 10:29 Blood Culture - Preliminary Blood NEGATIVE TO DATE 09/24/25 10:25 Blood Culture - Preliminary Blood NEGATIVE TO DATE A&P Assessment and plan 1. Type 2 diabetes mellitus with other diabetic neurological complication: 2. Cellulitis of foot, left: 3. Osteomyelitis of foot, left, acute: Plan: Diabetic foot infection with tunneling wound left dorsal medial forefoot with surrounding cellulitis. Wound culture from current wound taken 09/02/2025 grew MRSA sensitive to Bactrim. He was prescribed a 7-day course of Bactrim without improvement. New wound culture taken at today's visit. Wound was debrided at today's visit, x- ray left foot taken in clinic, per my interpretation periosteal reaction most prominent on the medial cortex of the remaining first metatarsal diaphysis concerning for acute osteomyelitis. - MRI left foot suggestive of osteomyelitis left first, second, third metatarsals. - N.p.o. at midnight, surgical debridement with partial Lisfranc amputation scheduled for tomorrow for source control of osteomyelitis left foot. - Recommend PICC line and extended course of antibiotic therapy, appreciate infectious disease recommendations. PDMP PDMP Reviewed: Not Reviewed Coding Level of Care Code Acute Code for [facility] Fwd Diagnoses Type 2 diabetes mellitus with other diabetic neurological complication E11.49 Cellulitis of foot, left L03.116 Osteomyelitis of foot, left, acute M86.172
[2025-09-24 17:01] VITALS: BP 137/75; PULSE 73; RESP 18; TEMP 36.4; O2SAT 94
[2025-09-24 20:00] VITALS: BP 180/87; PULSE 72; RESP 17; TEMP 36.4; O2SAT 94
[2025-09-24] MEDS: metoprolol succinate ER (24 HR) 50 mg Tablet PO (21:03)
[2025-09-24] MEDS: insulin glargine 100 units/1 mL 33 UNIT SUBCUT (21:14)
[2025-09-24] MEDS: vancomycin 1,750 MG/350 ML PIGGYBACK 175 MG IV (22:00)
[2025-09-25] VITALS (13 sets, daily range): BP systolic 109–163; BP diastolic 55–77; PULSE 54–75; RESP 16–21; TEMP 36.4–36.9; O2SAT 93–98
[2025-09-25] MEDS: heparin 5,000 unit/mL INJ 1 mL 5000 UNIT SUBCUT ×2 (00:08→23:41)
[2025-09-25] MEDS: HYDROcodone-acetaminophen 10-325 mg Tablet 1 TAB PO ×2 (04:53→21:26)
[2025-09-25 05:34] LABS: Alanine Aminotransferase 10 U/L (0-41); Albumin Level 3.4 g/dL (3.5-5.2); Alkaline Phosphatase 39 U/L (40-130); Anion Gap 13.7 (5-19); Aspartate Amino Transferase 12 U/L (0-40); Blood Urea Nitrogen 24 mg/dL (6-20); Calcium 8.4 mg/dL (8.5-10.5); Carbon Dioxide 22 mmol/L (22-29); Chloride 106 mmol/L (98-107); Globulin 2.7 g/dL (1.3-4.6); Glucose 130 mg/dL (65-115); Osmolality Calculated 290 mOsm/kg (285-295); Potassium 4.7 mmol/L (3.5-5.1); Sodium 137 mmol/L (136-145); Total Protein 6.1 g/dL (6.6-8.7)
[2025-09-25 05:56] LABS: Cholesterol 146 mg/dL (0-200); HDL Cholesterol 22 mg/dL (60-100); Magnesium 2.1 mg/dL (1.7-2.3); Triglycerides 254 mg/dL (0-150); VLDL Cholestrol Calculation 51 mg/dL (0-30)
[2025-09-25] MEDS: piperacillin-tazobactam 3.375 GM in sodium chloride 0.9% (plus) 50 ML IV ×3 (09:42→23:40)
--- NOTE | 2025-09-25 11:50 | ANES.PREANE2 ---
Pre-Anesthetic Assessment Height/Weight: Height 5 ft 10 in Weight 261 lb Temp Pulse Resp BP Pulse Ox O2 Del Method 97.6 F 60 17 142/72 96 Room Air 09/25/25 11:38 09/25/25 11:38 09/25/25 11:38 09/25/25 11:38 09/25/25 11:38 09/25/25 11:38 Operation Date: 09/25/25 13:35 Proposed Procedures p Incision And Drainage Left Foot(Left) - Ernesto Cali DPM Anesthetic Plan ASA status: 4 Anesthesia: General Other: Patient was recently with us for similar procedure and did well Admitted 09/23/2025 with concerns of osteomyelitis History of hypertension on lisinopril and metoprolol Patient takes Trulicity for diabetes, last last taken 3 weeks ago. Preop BS 130 Labs reviewed 09/25/2025 acceptable for procedure today. NA 137, K+ 4.7, CR 1.6 Echo 07/16/2024 showing EF of 60% with no RWMA. Mildly elevated filling pressures noted Plan for MAC anesthesia with local via surgeon Medications/Allergies Home Medications ?Medication ?Instructions ?Recorded ?Confirmed ?Last Taken ?Type Toe Filler #1 ea 09/12/22 09/24/25 Unknown Rx cam walker #1 ea 03/27/24 09/24/25 Unknown Rx hydrocodone 10 mg-acetaminophen 1 tab PO Q6H PRN Pain 09/22/24 09/24/25 09/23/25 History 325 mg tablet Diabetic Shoes with toe filler to #1 ea 10/28/24 09/24/25 Unknown Rx left and right Blood Glucose Meter #1 ea 01/23/25 09/24/25 Unknown Rx Blood Glucose Test Strips #100 ea 01/23/25 09/24/25 Unknown Rx blood-glucose,turbo electric operator,cont #1 ea 02/11/25 09/24/25 Unknown Rx (Dexcom G7 Android Programmer) doxepin 100 mg capsule 200 mg (2 x 100 mg) PO BEDTIME #60 03/26/25 09/24/25 09/22/25 Rx caps blood-glucose sensor (Dexcom G7 #9 ea 05/04/25 09/24/25 Unknown Rx Sensor device) pen needle, diabetic 32 gauge x #100 ea 05/07/25 09/24/25 Unknown Rx /32 (TechLITE Pen Needle) metoprolol succinate 50 mg 50 mg PO BEDTIME #90 tabs 07/13/25 09/24/25 09/23/25 Rx tablet,extended release 24 hr aspirin 81 mg tablet,delayed 81 mg PO DAILY #90 tabs 07/17/25 09/24/25 09/23/25 Rx release lisinopril 40 mg tablet 40 mg PO DAILY #90 tabs 07/30/25 09/24/25 09/23/25 Rx dulaglutide 0.75 mg/0.5 mL 0.75 mg SUBCUT Q7D 08/17/25 09/24/25 09/20/25 History subcutaneous pen injector (Trulicity) insulin aspart U-100 100 unit/mL 20 unit SUBCUT TID 08/17/25 09/24/25 09/23/25 History (3 mL) subcutaneous pen (Novolog FlexPen U-100 Insulin aspart) insulin glargine 100 unit/mL (3 33 unit SUBCUT BEDTIME 08/17/25 09/24/25 09/23/25 History mL) subcutaneous pen (Lantus Solostar U-100 Insulin) hydroxyzine HCl 50 mg tablet 50 mg PO QID PRN insomnia #120 tabs 08/20/25 09/24/25 09/22/25 Rx fenofibrate nanocrystallized 145 145 mg PO DAILY #90 tabs 09/07/25 09/24/25 09/23/25 Rx mg tablet meloxicam 15 mg tablet 15 mg PO DAILY PRN Pain 09/24/25 09/24/25 Unknown History prednisolone acetate 1 % eye 1 drp ophthalmic (eye) QID 09/24/25 09/24/25 Unknown History drops,suspension Allergies Allergy/AdvReac Type Severity Reaction Status Date / Time No Known Allergies Allergy Verified 09/23/25 14:18 Current Medications Generic Name Dose Route Start Last Admin Trade Name Freq PRN Reason Stop Dose Admin Hydrocodone Bitart/Acetaminophen 1 tab 09/23/25 23:17 09/25/25 04:53 Hydrocodone-Acetaminophen 10-325 Mg Tablet PO 1 tab Q6H PRN Administration PAIN Aspirin 81 mg 09/24/25 05:00 09/25/25 04:52 Aspirin 81 Mg Ec Tablet PO 81 mg DAILY ELISE Administration Doxepin HCl 200 mg 09/24/25 00:24 09/24/25 21:02 Doxepin 50 Mg Capsule PO 200 mg BEDTIME ELISE Administration Fenofibrate 145 mg 09/24/25 05:00 09/25/25 04:53 Fenofibrate 145 Mg Tablet PO 145 mg DAILY ELISE Administration Heparin Sodium (Porcine) 5,000 unit 09/23/25 23:15 09/25/25 00:08 Heparin 5,000 Unit/Ml Inj 1 Ml SUBCUT 5,000 unit Q12H ELISE Administration Hydralazine HCl 25 mg 09/24/25 05:00 09/25/25 04:52 Hydralazine 25 Mg Tablet PO 25 mg TID ELISE Administration Sodium Chloride 1,000 mls @ 100 mls/hr 09/23/25 23:15 09/25/25 04:57 Sodium Chloride 0.9% IV 100 mls/hr .Q10H ELISE Administration Piperacillin Sod/Tazobactam 50 mls @ 12.5 mls/hr 09/24/25 06:30 09/25/25 09:42 Sod 3.375 gm/ Sodium Chloride IV 12.5 mls/hr Q8H ELISE Administration Insulin Glargine 33 unit 09/23/25 23:44 09/24/25 21:14 Insulin Glargine 100 Units/1 Ml SUBCUT 33 unit BEDTIME ELISE Administration Insulin Human Lispro 0 unit 09/24/25 12:00 09/25/25 11:49 Insulin Lispro 100 Unit/1 Ml SUBCUT Not Given WM&BEDTIME ELISE Protocol Insulin Human Lispro 15 unit 09/24/25 13:00 09/25/25 11:49 Insulin Lispro 100 Unit/1 Ml SUBCUT Not Given TID ELISE Metoprolol Succinate 50 mg 09/23/25 22:00 09/24/25 21:03 Metoprolol Succinate Er (24 Hr) 50 Mg Tablet PO 50 mg BEDTIME ELISE Administration PFS Anesthesia Medical History (Updated 09/23/25 @ 23:33 by Jewel Prasad MD) Cellulitis of right foot Psychiatric care History of nonmelanoma skin cancer History of malignant melanoma Chronic pain in right foot Diabetes mellitus with polyneuropathy Cellulitis and abscess of right lower extremity Non-pressure chronic ulcer of other part of right foot with necrosis of bone Dyslipidemia Acute renal failure Cellulitis of leg, right Hallux rigidus, right foot Sleep apnea in adult Restless leg syndrome Dyslipidemia Encounter for long-term use of opiate analgesic Shoulder pain Diverticulosis Type 2 diabetes mellitus with other diabetic neurological complication Essential (primary) hypertension CHF (congestive heart failure) Amputated great toe Wound dehiscence, surgical Surgical History History of amputation of right great toe History of amputation of left great toe History of colonoscopy 2018 History of inguinal hernia repair, bilateral 1970,1977 History of ankle surgery Hx of amputation of lesser toe Left foot big toe and second toe 01/21/20 at [facility] [place] Dr. Leal Status post PICC central line placement H/O hernia repair History of amputation of lesser toe of right foot Family History Mother Cancer Other Dyslipidemia Denies family history of Diabetes CAD (coronary artery disease) Clotting disorder Dementia Hyperlipidemia Psychiatric illness Chronic kidney disease (CKD) Suicide Anesthesia complication Bleeding disorder Family history of premature coronary artery disease Lung disease Hypertension Stroke Social History (Updated 09/23/25 @ 23:29 by Jewel Prasad MD) Smoking and tobacco/nicotine status: unknown if used tobacco/nicotine Second hand smoke exposure: Yes Alcohol intake: current Alcohol intake frequency: holidays/special occasions only Alcohol use comment: 2 drinks in the last 3 years Substance/Drug Use: former Date of last use: 2012 Former substance use details: Previously used meth and weed Additional social history: Patient wants full code as discussed with Jewel Prasad MD on 09/23/2025 patient is retired or disabled from [employer] working in [place]. Jacobo his cousin lives with him and Awa Glaser who lives in [place] is his next of kin if he is unable to make decisions. Patient states he was in the [employer] Adopted: No Caregiver/support person: No Lives independently: Yes Household members: none Housing: House Marital status: Single Number of children: 0 Number of grandchildren: 0 Highest education level completed: High School Graduate service: Yes status: Discharged status details: discharged with cause branch: [employer] branch details: discharged after 3 years Assignments: Outside [facility] ([facility]) Known or Potential Exposure: Post Traumatic Stress Disorder (PTSD) Current occupational status: disabled Previous occupational history: [employer]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 Pets and animals: Yes (Sassy) Pets & animals: dog(s) Leisure activites: games and other Leisure activities details: watch TV Sexually active: No Do you think of yourself as: Straight/Heterosexual Current gender identity: Male Yolande/Oriental Orthodox: None Special yolande needs: No Agree to transfusion: Yes Data Anesthesia 09/23/25 20:22 09/25/25 04:50 Short CBC 09/23/25 Range/Units 20:22 WBC 11.27 (3.29-11.43) 10^3/uL Hgb 12.70 (11.27-16.99) g/dL Hct 38.7 (37-53) % MCV 83.6 (82-101) fl Plt Count 344 (157-399) 10^3/cmm Neut % (Auto) 69.5 % Neut # (Auto) 7.82 H (1.8-7.7) 10^3/uL BMP 09/23/25 09/24/25 09/25/25 20:22 06:13 04:50 Sodium 134 L 137 137 Potassium 5.4 H 4.5 4.7 Chloride 100 106 106 Carbon Dioxide 22 20 L 22 BUN 51 H 46 H 24 H Creatinine 2.7 H 2.1 H 1.6 H Glucose 212 H 159 H 130 H Calcium 8.7 8.2 L 8.4 L Liver Function 09/23/25 09/25/25 Range/Units 20:22 04:50 Total Bilirubin 0.2 0.2 (0.15-1.2) mg/dL AST 13 12 (0-40) U/L ALT 11 10 (0-41) U/L Alkaline Phosphatase 52 39 L (40-130) U/L Albumin 4.1 3.4 L (3.5-5.2) g/dL Coags 09/23/25 20:22 ESR 7 C-Reactive Protein 63.5 H Microbiology 09/24/25 10:29 Blood Culture - Preliminary Blood NEGATIVE TO DATE 09/24/25 10:25 Blood Culture - Preliminary Blood NEGATIVE TO DATE Cardiac Studies: Echocardiogram 07/16/24 Echocardiogram Ultrasound 01/10/21
--- NOTE | 2025-09-25 12:03 | P.PN_ITS ---
Subjective 2 Subjective: No acute events overnight. Patient lying comfortably in bed on examination. Denies any nausea, vomiting, headache. Remains on room air. Vitals/I&O/Wt Last Vital Signs Temp 97.6 F 09/25/25 11:38 Pulse 60 09/25/25 11:38 Resp 17 09/25/25 11:38 BP 142/72 09/25/25 11:38 Pulse Ox 96 09/25/25 11:38 O2 Del Method Room Air 09/25/25 11:38 09/24/25 09/25/25 09/25/25 22:59 06:59 14:59 Intake Total 290 / 2700 1860 / 4560 Output Total 500 / 1300 680 / 1980 200 / 200 Balance -210 / 1400 1180 / 2580 -200 / -200 Weight last 48 hrs Weight 118.388 kg Weight 116.573 kg Weight 119.295 kg Weight 116.12 kg Weight 115.666 kg Physical Exam 2 Narrative: General well-developed well-nourished male in no acute cardiopulmonary stress CV regular rate and rhythm Lungs clear to auscultation bilaterally Abdomen positive bowel tones soft nontender Back is mild flank tenderness left greater than right Calves left side 1+ edema with an enlarged right side not enlarged Bilateral foot amputations noted the left dorsal foot is inflamed edematous and boggy but not obvious fluctuant area. See images Patient with numbness below the mid tibia lower leg bilaterally and cannot feel his foot and is not painful to touch even on the inflamed left foot Extremity: OTHER: Data 09/23/25 20:22 09/25/25 04:50 Micro: Microbiology 09/24/25 10:29 Blood Culture - Preliminary Blood NEGATIVE TO DATE 09/24/25 10:25 Blood Culture - Preliminary Blood NEGATIVE TO DATE A&P Assessment and plan 1. Osteomyelitis due to type 2 diabetes mellitus: Patient will be treated with vancomycin and Zosyn pending MRI of the foot tomorrow and anticipate that he will need surgery likely further amputation. Appears to be severe soft tissue infection and some decreased bone density along his plain film hey looks MTP amputation 2. Cellulitis of foot, left: As above history of MRSA continue with vancomycin plus Zosyn for polymicrobial infection given his diabetes 3. CKD stage 3a, GFR 45-59 ml/min: Lisinopril was held. Patient is not on any metformin given his diminished GFR. Bactrim will be stopped. If given in the future he needs to be short course and monitored closely given nephrotoxicity and his CKD 4. Acute kidney injury due to nephrotoxicity: As above we will give saline hydration and diuresis if needed 5. Diabetes mellitus: Resume home Lantus and home preprandial short acting insulin 6. Diabetic neuropathy: Consider gabapentin or Lyrica but patient is not having much pain and I am not sure will actually improve his numbness Plan: Plan for the day: Concern for possible osteomyelitis with open wound. Appreciate MRI results. Appreciate podiatry recommendations for plan for the OR today. Patient will most likely need up to 6 weeks of IV antibiotics in outpatient. Will consult ID. For now continue with empiric IV vancomycin and Zosyn. Will follow-up blood culture and OR cultures. In the past patient's wound has grown MRSA, strep, Corynebacterium, Enterobacter, Klebsiella. For now vancomycin and Zosyn should cover. Plan for PICC line placement. GOLDIE on CKD. Most likely in setting of ATN from recent Bactrim along with lisinopril. Kidney functions back to baseline of 1.5-1.6. Will DC IV fluids after OR. Patient currently NPO. Goal blood pressure less than 140/90 mmhg. Continue with current medications. Holding off on lisinopril given GOLDIE. Blood pressure stable for now. Appreciate A1c. Continue with home dose of Lantus. Continue with Humalog 15 units 3 times daily along with sliding scale and hypoglycemia protocol. Full code. N.p.o. for now. Carb consistent s diet postoperatively. Heparin 5000-calorie DVT prophylaxis. Famotidine for PUD prophylaxis PDMP PDMP Reviewed: Not Reviewed Attestations 2 Medical Necessity Statement*: Requires further hospitalization for management of osteomyelitis of the foot as patient requires surgical correction and possibly IV antibiotics, GOLDIE on CKD in setting of hypertension, type 2 diabetes mellitus Diagnoses Osteomyelitis due to type 2 diabetes mellitus E11.69; M86.9 Cellulitis of foot, left L03.116 CKD stage 3a, GFR 45-59 ml/min N18.31 Acute kidney injury due to nephrotoxicity N17.8; N14.4 Diabetes mellitus E11.22; N18.30 Chronic kidney disease stage: stage 3 (moderate) Chronic kidney disease stage 3 subtype: unspecified whether 3a or 3b Diabetes mellitus complication detail: with chronic kidney disease Diabetes mellitus complication status: with kidney complications 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
--- NOTE | 2025-09-25 12:14 | P.HPUD_ITS ---
Surgery/Procedure H&P Update DATE OF PROCEDURE: September 25, 2025 DATE H&P PERFORMED: 09/23/25 H&P UPDATE INFORMATION: I have reviewed H&P completed within last 30 days, I have examined patient prior to procedure, No changes to prior documentation, H&P is in [facility] EMR on date indicated and Risks and benefits of the procedure reviewed PREOP DIAGNOSIS: Osteomyelitis left foot PLANNED PROCEDURE: Operation Date: 09/25/25 13:35 Proposed Procedures p Incision And Drainage Left Foot(Left) - Ernesto Cali DPM
--- NOTE | 2025-09-25 12:31 | XR_ITS ---
WS: [id number] XR chest 1V portable [id number] REASON FOR EXAM: Post PICC insertion FINDINGS: Left arm PICC line has been placed. The tip is in the distal SVC in proper position for use. The PICC line position was discussed with the electrical design technologist over the phone at 2:07 p.m. 09/25/2025. There is cardiomegaly and central pulmonary venous congestion. XR/XR chest 1V portable [id number] IMPRESSION: Left arm PICC line placement in proper position ready for use.
[2025-09-25] MEDS: BUPivacaine 0.5% INJ 30 mL 15 ML INJECTION (12:37)
--- NOTE | 2025-09-25 13:30 | ANE.PACU2 ---
Inpatient post-anesthesia follow up: Airway intact: Yes Vital signs: Temperature 97.8 F Pulse Rate 56 Respiratory Rate 20 Blood Pressure 140/66 Pulse Oximetry 93 Oxygen Delivery Me thod Room Air Oxygen Flow Rate 8 Fraction of Inspir ed Oxygen Hydration adequate: Yes Nausea and vomiting: No Pain level: 1 Mental status: Baseline
--- NOTE | 2025-09-25 13:32 | PC.NURSE ---
1330 - Phase I Recovery complete. Catalina Rivera RN at bedside to insert PICC line.
--- NOTE | 2025-09-25 13:33 | W.PM.BPON ---
Date of Procedure: 12/28/23 Surgeon: Ernesto Cali DPM [place] Floor Installer(s): Jossue Procedure(s) performed: Partial Lisfranc capitation left foot. Findings of the procedure(s): Osteomyelitis left foot 1st, 2nd and 3rd metatarsals. Estimated blood loss: 15 mL Specimen(s) removed: First, second, metatarsal sent to microbiology for bone culture Post-operative diagnosis: Osteomyelitis left first, second, third metatarsal.
--- NOTE | 2025-09-25 13:34 | PM.OP ---
Operative Report Date of procedure: September 25, 2025 Pre-op diagnosis: Acute osteomyelitis left first metatarsal Acute osteomyelitis left second metatarsal Acute osteomyelitis left third metatarsal Cellulitis left foot Diabetic ulcer left foot exposed to bone Post-op diagnosis: Same Post-op findings: Devitalized bone at the left first metatarsal, second metatarsal and third metatarsal. Procedure done: Left transmetatarsal amputation. CPT code 50213 Implants: 2-0 Vicryl, 4-0 Vicryl, skin lanny Specimens removed/disposition: 1st and 2nd metatarsal was sent as bone culture to microbiology Pathology: None Surgeon: Ernesto Cali DPM Voting Machine Mechanic: Jossue Estimated blood loss: 15 33 IV fluids: See intraoperative documentation Urine output: No urine output Complications: No complications Findings: Devitalized bone of the 1st, 2nd and 3rd metatarsals left foot. 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 A wound culture was taken in clinic significant for MRSA sensitive to Bactrim he completed a week course of Bactrim without improvement potentially due to his continuous weightbearing and excessive activities on the left foot wound. MRI significant for findings suggestive of acute osteomyelitis of the 1st, 2nd and 3rd metatarsals of the left foot this does correspond to the patient's wound and clinical presentation of cellulitis. Recommended source control of infection consisting of more proximal transmetatarsal amputation and a extended course of IV antibiotics via PICC line patient is in agreements and would like to proceed Procedure: Under mild sedation the patient was brought to the operating room and remained on the gurney in supine position. A timeout was performed. Anesthesia was then administered by the anesthesia service. Local anesthesia was injected by myself consisting of 30 cc of one-to-one mixture 1% lidocaine and 0.5% Marcaine plain in a ankle block fashion to the left lower extremity. Well-padded pneumatic tourniquet applied to the left ankle. The left lower extremity was scrubbed, prepped and draped utilizing normal aseptic technique. Left lower extremities elevated and left ankle tourniquet inflated to 250 mmHg. Attention was directed to the left forefoot where a full-thickness wound was appreciated to the dorsal aspect of the left first metatarsal with surrounding cellulitis, wound probes to bone. A fishmouth incision was performed full-thickness down to bone encompassing the 1st, 2nd and 3rd metatarsals of the left forefoot with a #10 blade, left 1st, 2nd and 3rd metatarsals were identified and noted to have devitalized bone especially at the leading most distal aspect with poor density and color, the 1st, 2nd and 3rd metatarsals were sharply disarticulated at the Lisfranc joint and removed from the operative field, distal aspect of the first and distal aspect of the second metatarsals were sent separately to microbiology as bone culture for Gram stain, culture and sensitivity to potentially assist with antibiotic guidance long-term. No further devitalized bone or soft tissue is appreciated after debridement was performed with pickups and a #15 blade. The incision was irrigated with 2 bottles of Irrisept and further irrigated with saline solution, all bleeders were ligated and cauterized as necessary. Myofascial layer was then reapproximated with 2-0 Vicryl, subcutaneous tissue with 4-0 Vicryl and skin with lanny. The incision was dressed with Xeroform, sterile gauze, Kerlix, Coban and Juan wrap. Tourniquet was deflated and a hyperemic spots was noted to the distal amputation site of the left foot. Patient tolerated the procedure and anesthesia well and was transferred to the PACU with vital signs stable and vascular status intact. Following a period of postoperative monitoring to be transferred back to the floor to continue IV antibiotic therapy. Partial left foot amputation for osteomyelitis source control performed today, no further surgical intervention from podiatry standpoint during this hospitalization. 2 separate bone cultures were sent to microbiology from the 1st and 2nd metatarsals of the left foot, recommend PICC line and extended course of IV antibiotics. Nonweightbearing left foot. At this point awaiting antibiotic selection, okay for discharge from podiatry standpoint, will follow-up next week in podiatry clinic.
--- NOTE | 2025-09-25 13:50 | PICC.NOTE ---
Single lumen PICC placed to left basilic vein. Referred to vascular access nurse for PICC placement due to need for IV antibiotics x 6 weeks. Risks and benefits discussed and informed consent obtained from pt prior to surgery. PICC to be placed in PACU. Left arm assessed with left basilic vein measuring 5.8 mm, straight, and apparent best choice for placement. Using sterile technique and MST, left basilic vein accessed x 1 stick. Mid-arm circumference measured 10 cm from left AC 33 cm. Trimmed cath 46 cm with 0 cm external length noted. CXR shows tip in distal SVC, in good position for use per radiologist. Line secured with stat-lock. Insertion site covered with Biopatch and TSM. Report given to charge nurse, LIZET Estrada.
[2025-09-25] MEDS: vancomycin 1,750 MG/350 ML PIGGYBACK 175 MG IV (15:34)
[2025-09-25] MEDS: metoprolol succinate ER (24 HR) 50 mg Tablet PO (21:03)
[2025-09-25] MEDS: insulin glargine 100 units/1 mL 33 UNIT SUBCUT (21:28)
[2025-09-26] VITALS: BP 162/72; PULSE 69; RESP 18; TEMP 36.6; O2SAT 95
[2025-09-26] MEDS: HYDROcodone-acetaminophen 10-325 mg Tablet 1 TAB PO ×3 (02:58→18:41)
[2025-09-26 04:00] VITALS: BP 150/80; PULSE 67; RESP 18; TEMP 36.8; O2SAT 93
[2025-09-26 04:53] LABS: Hematocrit 33.2 % (37-53); Hemoglobin 10.70 g/dL (11.27-16.99); Mean Corpuscular HGB Conc 32.2 g/dL (30-55); Mean Corpuscular Hemoglobin 27.2 pg (27-33); Mean Corpuscular Volume 84.5 fl (82-101); Nucleated Red Blood Cells % 0 %; Platelet Count 263 10^3/cmm (157-399); Red Blood Count 3.93 10^6/uL (3.85-5.65); White Blood Count 8.63 10^3/uL (3.29-11.43)
[2025-09-26 05:16] LABS: Alanine Aminotransferase 10 U/L (0-41); Albumin Level 3.7 g/dL (3.5-5.2); Alkaline Phosphatase 38 U/L (40-130); Anion Gap 11.8 (5-19); Aspartate Amino Transferase 13 U/L (0-40); Blood Urea Nitrogen 22 mg/dL (6-20); Calcium 8.5 mg/dL (8.5-10.5); Carbon Dioxide 25 mmol/L (22-29); Chloride 104 mmol/L (98-107); Globulin 2.2 g/dL (1.3-4.6); Glucose 155 mg/dL (65-115); Osmolality Calculated 288 mOsm/kg (285-295); Potassium 4.8 mmol/L (3.5-5.1); Sodium 136 mmol/L (136-145); Total Protein 5.9 g/dL (6.6-8.7)
[2025-09-26 05:20] LABS: Magnesium 2.2 mg/dL (1.7-2.3)
[2025-09-26 06:00] VITALS: BMI 18.8
--- NOTE | 2025-09-26 07:34 | XRR_ITS ---
PROCEDURE INFORMATION: Exam: XR Left Foot Exam date and time: 09/26/2025 9:36 AM Age: 55 years old Clinical indication: Pain; Foot; Left; Prior surgery; Surgery date: Post-operative (0-2 days); Surgery type: Lt toes; Additional info: Post op TECHNIQUE: Imaging protocol: Radiologic exam of the left foot. Views: 3 or more views. COMPARISON: MR foot LT wo con* [id number] 09/24/2025 5:10 PM FINDINGS: Bones/joints: Surgical clips along the distal foot. Multirray forefoot amputation with complete amputation of the first, second, and third rays and partial amputation of the fourth and fifth metatarsals. Soft tissues: Soft tissue swelling of the distal foot, with several locules of air. XR/XR foot LT min 3V* [id number] IMPRESSION: 1. Multirray forefoot amputation with complete amputation of the first, second, and third rays and partial amputation of the fourth and fifth metatarsals. 2. Soft tissue swelling of the forefoot, with several large locules of air.
[2025-09-26 07:43] VITALS: BP 160/71; PULSE 70; RESP 18; TEMP 36.8; O2SAT 92
[2025-09-26] MEDS: piperacillin-tazobactam 3.375 GM in sodium chloride 0.9% (plus) 50 ML IV ×2 (09:04→17:46)
[2025-09-26] MEDS: vancomycin 1,750 MG/350 ML PIGGYBACK 175 MG IV (09:10)
--- NOTE | 2025-09-26 11:23 | PM.CONSULT ---
Providers/Reason For Consult Consulting Physician/Specialty*: Alexa Graves MD/ Infectious Disease Reason for Consult*: Osteomyelitis of foot Requesting Physician: Heriberto Braun MD Attending Physician: Lorelei Landers MD Primary Care Provider: Tito Puentes MD History of Present Illness History of Present Illness Braxton Rosales is a 55 year old male with diabetic neuropathy and CKD 3 has had recurrent diabetic foot ulcers with bilateral toe amputations of all his toes bilaterally. He had a chronic non healing wound over the left foot since February 2025. The wound had been waxing and waning since then and required intermittent courses of po abx. In Aug 2025, he underwent exostectomy left first metatarsal and floating osteotomy left second metatarsal. WOund cx at this time was positive for MRSA and he received a prescription for bactrim which he had been taking regularly. On 09/23, he was noted to have redness and failure to heal, MRI foot was performed which showed changes concerning for osteomyelitis in maribel remnant 1st 2nd and 3rd metatarsals and a soft tissue abscess with cellulitis. He is now s/p Left transmetatarsal amputation proximal to existing on 09/25. denies any complaints today Review of Systems General: Reports: 10 or more systems reviewed and unremarkable except in HPI and below Const: Denies: fever(s), chills or body aches Eyes: Denies: change in vision, blurry vision or photophobia ENMT: Reports: hoarseness; Denies: throat pain, enlarged tonsils, odynophagia or nasal congestion Card: Denies: chest pain, palpitations, irregular heart rhythm, edema, swelling of feet/ankles, lightheadedness, pre-syncope, dyspnea on exertion or orthopnea Resp: Denies: dyspnea, productive cough, non-productive cough, wheezing, stridor, pain on inspiration, change in phlegm color, hemoptysis or chest congestion GI: Denies: abdominal pain, nausea, vomiting, hematemesis, coffee ground emesis, dysphagia, heartburn, diarrhea, constipation, GI cramping, change in stool character, hematochezia or melena : Denies: flank pain, dysuria, urinary frequency, urinary urgency, urinary hesitancy or hematuria Musc: Denies: neck pain, back pain, extremity pain, joint swelling, joint warmth or deformity Neuro: Denies: headache(s), numbness in extremities, weakness in extremities, sensory changes, difficulty walking, frequent falls, dizziness, vertigo, behavioral changes, Slurred speech present or seizure-like activity Psych: Denies: anxiety, depression, suicidal ideation or homicidal ideation Endo: Denies: polyuria, polydipsia, tired all the time, cold intolerance or hot flashes North/Lymph: Denies: easy bruising or easy bleeding Medications/Allergies Home Medications ?Medication ?Instructions ?Recorded ?Confirmed ?Last Taken ?Type Toe Filler #1 ea 09/12/22 09/24/25 Unknown Rx cam walker #1 ea 03/27/24 09/24/25 Unknown Rx hydrocodone 10 mg-acetaminophen 1 tab PO Q6H PRN Pain 09/22/24 09/24/25 09/23/25 History 325 mg tablet Diabetic Shoes with toe filler to #1 ea 10/28/24 09/24/25 Unknown Rx left and right Blood Glucose Meter #1 ea 01/23/25 09/24/25 Unknown Rx Blood Glucose Test Strips #100 ea 01/23/25 09/24/25 Unknown Rx blood-glucose,beverage inspection machine tender,cont #1 ea 02/11/25 09/24/25 Unknown Rx (Dexcom G7 Supervisor Smoke Control) doxepin 100 mg capsule 200 mg (2 x 100 mg) PO BEDTIME #60 03/26/25 09/24/25 09/22/25 Rx caps blood-glucose sensor (Dexcom G7 #9 ea 05/04/25 09/24/25 Unknown Rx Sensor device) pen needle, diabetic 32 gauge x #100 ea 05/07/25 09/24/25 Unknown Rx (TechLITE Pen Needle) metoprolol succinate 50 mg 50 mg PO BEDTIME #90 tabs 07/13/25 09/24/25 09/23/25 Rx tablet,extended release 24 hr aspirin 81 mg tablet,delayed 81 mg PO DAILY #90 tabs 07/17/25 09/24/25 09/23/25 Rx release lisinopril 40 mg tablet 40 mg PO DAILY #90 tabs 07/30/25 09/24/25 09/23/25 Rx dulaglutide 0.75 mg/0.5 mL 0.75 mg SUBCUT Q7D 08/17/25 09/24/25 09/20/25 History subcutaneous pen injector (Trulicity) insulin aspart U-100 100 unit/mL 20 unit SUBCUT TID 08/17/25 09/24/25 09/23/25 History (3 mL) subcutaneous pen (Novolog FlexPen U-100 Insulin aspart) insulin glargine 100 unit/mL (3 33 unit SUBCUT BEDTIME 08/17/25 09/24/25 09/23/25 History mL) subcutaneous pen (Lantus Solostar U-100 Insulin) hydroxyzine HCl 50 mg tablet 50 mg PO QID PRN insomnia #120 tabs 08/20/25 09/24/25 09/22/25 Rx fenofibrate nanocrystallized 145 145 mg PO DAILY #90 tabs 09/07/25 09/24/25 09/23/25 Rx mg tablet meloxicam 15 mg tablet 15 mg PO DAILY PRN Pain 09/24/25 09/24/25 Unknown History prednisolone acetate 1 % eye 1 drp ophthalmic (eye) QID 09/24/25 09/24/25 Unknown History drops,suspension Allergies Allergy/AdvReac Type Severity Reaction Status Date / Time No Known Allergies Allergy Verified 09/23/25 14:18 Current Medications Generic Name Dose Route Start Last Admin Trade Name Freq PRN Reason Stop Dose Admin Hydrocodone Bitart/Acetaminophen 1 tab 09/23/25 23:17 09/26/25 02:58 Hydrocodone-Acetaminophen 10-325 Mg Tablet PO 1 tab Q6H PRN Administration PAIN Aspirin 81 mg 09/24/25 05:00 09/26/25 05:15 Aspirin 81 Mg Ec Tablet PO 81 mg DAILY ELISE Administration Doxepin HCl 200 mg 09/24/25 00:24 09/25/25 21:03 Doxepin 50 Mg Capsule PO 200 mg BEDTIME ELISE Administration Fenofibrate 145 mg 09/24/25 05:00 09/26/25 05:15 Fenofibrate 145 Mg Tablet PO 145 mg DAILY ELISE Administration Heparin Sodium (Porcine) 5,000 unit 09/23/25 23:15 09/25/25 23:41 Heparin 5,000 Unit/Ml Inj 1 Ml SUBCUT 5,000 unit Q12H ELISE Administration Hydralazine HCl 25 mg 09/24/25 05:00 09/26/25 05:15 Hydralazine 25 Mg Tablet PO 25 mg TID ELISE Administration Hydroxyzine Pamoate 50 mg 09/23/25 23:24 09/25/25 21:27 Hydroxyzine 25 Mg Capsule PO 50 mg QID PRN Administration insomnia Piperacillin Sod/Tazobactam 50 mls @ 12.5 mls/hr 09/24/25 06:30 09/26/25 09:04 Sod 3.375 gm/ Sodium Chloride IV 12.5 mls/hr Q8H ELISE Administration Vancomycin HCl 1,750 mg in 350 mls @ 175 mls/hr 09/25/25 15:00 09/26/25 11:19 Vancocin IV Infused Q18H ELISE Infusion Insulin Glargine 33 unit 09/23/25 23:44 09/25/25 21:28 Insulin Glargine 100 Units/1 Ml SUBCUT 33 unit BEDTIME ELISE Administration Insulin Human Lispro 0 unit 09/24/25 12:00 09/26/25 07:59 Insulin Lispro 100 Unit/1 Ml SUBCUT Not Given WM&BEDTIME [facility] Protocol Insulin Human Lispro 15 unit 09/24/25 13:00 09/26/25 05:16 Insulin Lispro 100 Unit/1 Ml SUBCUT 15 unit TID ELISE Administration Metoprolol Succinate 50 mg 09/23/25 22:00 09/25/25 21:03 Metoprolol Succinate Er (24 Hr) 50 Mg Tablet PO 50 mg BEDTIME ELISE Administration PFSH Acute PFSH: Medical History Cellulitis of right foot Psychiatric care History of nonmelanoma skin cancer History of malignant melanoma Chronic pain in right foot Diabetes mellitus with polyneuropathy Cellulitis and abscess of right lower extremity Non-pressure chronic ulcer of other part of right foot with necrosis of bone Dyslipidemia Acute renal failure Cellulitis of leg, right Hallux rigidus, right foot Sleep apnea in adult Restless leg syndrome Dyslipidemia Encounter for long-term use of opiate analgesic Shoulder pain Diverticulosis Type 2 diabetes mellitus with other diabetic neurological complication Essential (primary) hypertension CHF (congestive heart failure) Amputated great toe Wound dehiscence, surgical Surgical History History of amputation of right great toe History of amputation of left great toe History of colonoscopy 2018 History of inguinal hernia repair, bilateral 1970,1978 History of ankle surgery Hx of amputation of lesser toe Left foot big toe and second toe 01/21/20 at [facility] [place] Dr. Leal Status post PICC central line placement H/O hernia repair History of amputation of lesser toe of right foot Family History Mother Cancer Other Dyslipidemia Denies family history of Diabetes CAD (coronary artery disease) Clotting disorder Dementia Hyperlipidemia Psychiatric illness Chronic kidney disease (CKD) Suicide Anesthesia complication Bleeding disorder Family history of premature coronary artery disease Lung disease Hypertension Stroke Social History Smoking and tobacco/nicotine status: unknown if used tobacco/nicotine Second hand smoke exposure: Yes Alcohol intake: current Alcohol intake frequency: holidays/special occasions only Alcohol use comment: 2 drinks in the last 3 years Substance/Drug Use: former Date of last use: 2012 Former substance use details: Previously used meth and weed Additional social history: Patient wants full code as discussed with Jewel Prasad MD on 09/23/2025 patient is retired or disabled from [employer] working in [employer]. Jacobo his cousin lives with him and Awa Glaser who lives in [place] is his next of kin if he is unable to make decisions. 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 Pets and animals: Yes (Sassy) Pets & animals: dog(s) Leisure activites: games and other Leisure activities details: watch TV Sexually active: No Do you think of yourself as: Straight/Heterosexual Current gender identity: Male Yolande/Orthodoxy: None Special yolande needs: No Agree to transfusion: Yes Vitals/I&O/Wt Last Vital Signs Temp 98.2 F 09/26/25 07:43 Pulse 70 09/26/25 07:43 Resp 18 09/26/25 07:43 BP 160/71 09/26/25 07:43 Pulse Ox 92 09/26/25 07:43 O2 Del Method Room Air 09/26/25 07:43 O2 Flow Rate 8 09/25/25 13:20 09/25/25 09/26/25 09/26/25 22:59 06:59 14:59 Intake Total 1760 / 1810 2210 / 4020 830 / 830 Output Total 1150 / 1365 950 / 2315 Balance 610 / 445 1260 / 1705 830 / 830 Weight last 48 hrs Weight 59.783 kg Weight 118.388 kg Physical Exam Narrative: Seen via telehealth General: No acute distress, AO x3 Neuro: No focal deficits Extremities: Surgical dressing not opened for exam Data 09/26/25 04:19 09/26/25 04:19 Micro: Microbiology 09/24/25 10:29 Blood Culture - Preliminary Blood NEGATIVE TO DATE 09/24/25 10:25 Blood Culture - Preliminary Blood NEGATIVE TO DATE NAME: Braxton Rosales [facility]: [facility] U #: [id number] AGE/SX: 55/M ROOM: 259 RE09/23/[address]: Lorelei Landers MD : 1970 BED: 1 DIS: FAX #: STATUS: ADM IN TLOC: Spec #: [id number] Sheyla: 09/25/25-1256 Status: RES Req #: [id number] Recd: 09/25/25-[address]: Ernesto Cali DPM Src: Foot SpDesc: Left Ordered: Tissue Cult GS, Anaer Comments: Comment left 2nd metatarsal bone aerobes gram stain c/s Comment left 2nd metatarsal bone anaerobes Procedure Result Verified Site Gram Stain Final 09/26/25 Result RARE WHITE BLOOD CELLS NO ORGANISMS SEEN Anaerobic Culture PENDING Tissue Culture PENDING NAME: Braxton Rosales LOC: [facility] U #: [id number] AGE/SX: 55/M ROOM: 259 RE09/23/[address]: Lorelei Landers MD : 1970 BED: 1 DIS: FAX #: STATUS: ADM IN TLOC: Spec #: [id number] Sheyla: 09/24/25 Status: RES Req #: [id number] Recd: 09/24/[address]: Heriberto Braun MD Src: Blood SpDesc: Ordered: Bcult Procedure Result Verified Site Blood Culture Preliminary 09/25/25 NEGATIVE TO DATE Blood Culture Preliminary (changed) 09/24/25 SPECIMEN COLLECTED NAME: Braxton Rosales LOC: [facility] U #: [id number] AGE/SX: 55/M ROOM: RE09/23/[address]: Ernesto Cali DPM : 1970 BED: DIS: FAX #: STATUS: DEP AMB TLOC: Spec #: [id number] Sheyla: 09/23/25 Status: RES Req #: [id number] Recd: 09/23/[address]: Ernesto Cali DPM Src: Incision SpDesc: Ordered: WC and GS Procedure Result Verified Site Gram Stain Final 09/24/25 Result FEW POLYMORPHONUCLEAR NEUTROPHILS NO ORGANISMS SEEN Wound Culture Preliminary 09/25/25 Organism 1 Coag positive Staphylococcus Growth HEAVY DAY 2, RESULTS TO FOLLOW Wound Culture Preliminary (changed) 09/24/25-1425 HEAVY MIXED SUPERFICIAL MANDIE ON DAY 1 NAME: Braxton Rosales LOC: [facility] U #: [id number] AGE/SX: 55/M ROOM: RE09/02/[address]: Ernesto Cali DPM : 1970 BED: DIS: FAX #: STATUS: DEP AMB TLOC: Spec #: [id number] Sheyla: 09/02/25 Status: COMP Req #: [id number] Recd: 09/02/[address]: Ernesto Cali DPM Src: Other Sour SpDesc: Ordered: WC and GS Comments: PAPER ORDER ONLY RECEIVED IN LAB. Procedure Result Verified Site Gram Stain Final 09/07/25 Result MODERATE WHITE BLOOD CELLS RARE GRAM POSITIVE COCCI IN PAIRS Wound Culture Final 09/07/25 Organism 1 Methicillin Resis Staph Aureus Growth HEAVY FEW MIXED SUPERFICIAL MANDIE ON DAY 3 CRITICAL RESULT YES/NO: YES CRITICAL CALLED BY: DEREK TO AND READ BACK BY: SHANNAN DATE: 09/07/25 TIME: 908 MRSA M.I.C. RX --------- ------ * Ciprofloxacin >2 R * Clindamycin >4 R * Erythromycin >4 R * Gentamicin <=4 S * Levofloxacin >4 R * Linezolid 4 S * Moxifloxacin >4 R * Oxacillin >2 R * Penicillin >8 R * Rifampin <=1 S * Tetracycline >8 R * Trimethoprim/Sulfamethoxazole <=0.5/9.5 S Vancomycin 2 S Daptomycin 1 S Wound Culture Preliminary (changed) 09/05/25-4934 Organism 1 Methicillin Resis Staph Aureus Growth HEAVY FEW MIXED SUPERFICIAL MANDIE ON DAY 3 MRSA M.I.C. RX --------- ------ * Ciprofloxacin >2 R * Clindamycin >4 R * Erythromycin >4 R * Gentamicin <=4 S * Levofloxacin >4 R * Linezolid 4 S * Moxifloxacin >4 R * Oxacillin >2 R * Penicillin >8 R * Rifampin <=1 S * Tetracycline >8 R * Trimethoprim/Sulfamethoxazole <=0.5/9.5 S Vancomycin 2 S Daptomycin 1 S Wound Culture Preliminary (changed) 09/03/25-1248 Organism 1 Coag positive Staphylococcus Growth HEAVY DAY 1, RESULTS TO FOLLOW Other data: Radiology Impressions Foot MRI 09/24/25 13:29 IMPRESSION: 1. Transmetatarsal amputation of the 1st through 5th toes. 2. Increased signal intensity on STIR and T2 weighted images of the entire remaining 1st and 2nd metatarsal in the tip of the remaining 3rd metatarsal. Cortical loss seen involving the distal remaining 1st and 2nd metatarsals. 3. Soft tissue abscess surrounding the remaining 1st metatarsal, surrounding the distal remaining 2nd metatarsal and the tip of the remaining 3rd metatarsal. 4. Diffuse edema/cellulitis ankle and foot. Chest X-Ray 09/25/25 12:31 IMPRESSION: Left arm PICC line placement in proper position ready for use. Foot X-Ray 09/26/25 07:34 IMPRESSION: 1. Multirray forefoot amputation with complete amputation of the first, second, and third rays and partial amputation of the fourth and fifth metatarsals. 2. Soft tissue swelling of the forefoot, with several large locules of air. Laboratory Results WBC 8.63 10^3/uL (3.29-11.43) 09/26/25 04:19 RBC 3.93 10^6/uL (3.85-5.65) 09/26/25 04:19 Hgb 10.70 g/dL (11.27-16.99) L 09/26/25 04:19 Hct 33.2 % (37-53) L 09/26/25 04:19 MCV 84.5 fl (82-101) 09/26/25 04:19 MCH 27.2 pg (27-33) 09/26/25 04:19 MCHC 32.2 g/dL (30-55) 09/26/25 04:19 RDW 13.2 % (12.1-15.1) 09/26/25 04:19 Plt Count 263 10^3/cmm (157-399) 09/26/25 04:19 MPV 10.2 fL (7.4-10.4) 09/26/25 04:19 Neut % (Auto) 65.7 % 09/26/25 04:19 Lymph % (Auto) 21.0 % 09/26/25 04:19 [place] % (Auto) 7.4 % 09/26/25 04:19 Eos % (Auto) 4.8 % 09/26/25 04:19 Baso % (Auto) 0.6 % 09/26/25 04:19 Neut # (Auto) 5.68 10^3/uL (1.8-7.7) 09/26/25 04:19 Lymph # (Auto) 1.8 10^3/uL (0.8-4.8) 09/26/25 04:19 [place] # (Auto) 0.6 10^3/uL (0.2-0.9) 09/26/25 04:19 Eos # (Auto) 0.4 10^3/uL (0.0-0.8) 09/26/25 04:19 Baso # (Auto) 0.1 10^3/uL (0.0-0.1) 09/26/25 04:19 Nucleated RBC % (auto) 0 % 09/26/25 04:19 Nucleated RBCs # 0.0 /100WBC 09/26/25 04:19 ESR 7 mm/hr (0-10) 09/23/25 20:22 Sodium 136 mmol/L (136-145) 09/26/25 04:19 Potassium 4.8 mmol/L (3.5-5.1) 09/26/25 04:19 Chloride 104 mmol/L (98-107) 09/26/25 04:19 Carbon Dioxide 25 mmol/L (22-29) 09/26/25 04:19 Anion Gap 11.8 (5-19) 09/26/25 04:19 BUN 22 mg/dL (6-20) H 09/26/25 04:19 Creatinine 1.5 mg/dL (0.7-1.2) H 09/26/25 04:19 GFR Calculation 48.2 mL/min (90-130) L 09/26/25 04:19 Glucose 155 mg/dL (65-115) H 09/26/25 04:19 POC Glucose 188 mg/dL (70-110) H 09/26/25 20:49 Calculated Osmolality 288 mOsm/kg (285-295) 09/26/25 04:19 Lactic Acid 1.0 mmol/L (0.5-2.2) 09/23/25 20:22 Calcium 8.5 mg/dL (8.5-10.5) 09/26/25 04:19 Phosphorus 3.9 mg/dL (2.5-4.5) 09/24/25 06:13 Magnesium 2.2 mg/dL (1.7-2.3) 09/26/25 04:19 Iron 49 ug/dL (59-158) L 09/24/25 06:13 TIBC 291 mcg/dl 09/24/25 06:13 % Saturation 16.8 % (20-50) L 09/24/25 06:13 Unsat Iron Binding 242 ug/dL (112-347) 09/24/25 06:13 Total Bilirubin 0.3 mg/dL (0.15-1.2) 09/26/25 04:19 AST 13 U/L (0-40) 09/26/25 04:19 ALT 10 U/L (0-41) 09/26/25 04:19 Alkaline Phosphatase 38 U/L (40-130) L 09/26/25 04:19 C-Reactive Protein 63.5 mg/L (0.0-4.9) H 09/23/25 20:22 Total Protein 5.9 g/dL (6.6-8.7) L 09/26/25 04:19 Albumin 3.7 g/dL (3.5-5.2) 09/26/25 04:19 Globulin 2.2 g/dL (1.3-4.6) 09/26/25 04:19 Triglycerides 254 mg/dL (0-150) H 09/25/25 04:50 Cholesterol 146 mg/dL (0-200) 09/25/25 04:50 LDL Cholesterol, Calc 73 mg/dL (50-129) 09/25/25 04:50 Total VLDL Cholesterol 51 mg/dL (0-30) H 09/25/25 04:50 HDL Cholesterol 22 mg/dL (60-100) L 09/25/25 04:50 Cholesterol/HDL Ratio 6.64 mg/dL (1.0-5.00) H 09/25/25 04:50 Vitamin B12 381 pg/mL (232-1245) 09/24/25 06:13 Folate > 20.0 ng/mL (4.5-32.2) 09/25/25 04:50 Procalcitonin 0.14 ng/mL (0-0.5) 09/24/25 06:13 TSH 6.26 uIU/mL (0.27-4.20) H 09/24/25 06:13 A&P Assessment and plan 1. Cellulitis of foot, left: 2. Osteomyelitis of foot: Plan: 55M with PMH as noted above MRI with osteomyelitis of metatarsal along with cellulitis and abscess S/P Transmetatarsal amputation now Case discussed with podiatry- cannot r/o proximal extension , pathology awaited Given the above and recent failure of po Bactrim as outpatient , favor to use iv abx for treatment Patient had PICC Line placed yesterday recommend discharge with iv Daptomycin 8mg/kg every 24 hrs until 10/29/24 Weekly CBC, creat, LFT anD cpk to be faxed to ID clinic for review PDMP PDMP Reviewed: Not Reviewed Coding Level of Care Code Acute Code for [facility] Fwd Diagnoses Cellulitis of foot, left L03.116 Osteomyelitis of foot M86.9
[2025-09-26] MEDS: heparin 5,000 unit/mL INJ 1 mL 5000 UNIT SUBCUT (11:41)
[2025-09-26 12:24] VITALS: BP 150/79; PULSE 67; RESP 18; TEMP 37.1; O2SAT 94
--- NOTE | 2025-09-26 12:58 | PC.NURSE ---
Notified Dr. Landers of blood sugar 120. Dr. Landers gave orders to hold the 15 units of lispro.
[2025-09-26 16:56] VITALS: BP 149/60; PULSE 71; RESP 17; TEMP 36.8; O2SAT 97
--- NOTE | 2025-09-26 18:13 | P.PN_ITS ---
Subjective 2 Subjective: No acute overnight events. Patient resting comfortably. He denies pain or discomfort. Vitals/I&O/Wt Last Vital Signs Temp 98.3 F 09/26/25 16:56 Pulse 71 09/26/25 16:56 Resp 17 09/26/25 16:56 BP 149/60 09/26/25 16:56 Pulse Ox 97 09/26/25 16:56 O2 Del Method Room Air 09/26/25 07:43 O2 Flow Rate 8 09/25/25 13:20 09/26/25 09/26/25 09/26/25 06:59 14:59 22:59 Intake Total 2210 / 4020 1240 / 1240 Output Total 950 / 2315 400 / 400 Balance 1260 / 1705 840 / 840 Weight last 48 hrs Weight 59.783 kg Weight 118.388 kg Physical Exam 2 Narrative: General well-developed well-nourished male in no acute cardiopulmonary stress CV regular rate and rhythm Lungs clear to auscultation bilaterally Abdomen positive bowel tones soft nontender Back is mild flank tenderness left greater than right Calves left side 1+ edema with an enlarged right side not enlarged Bilateral foot amputations noted the left dorsal foot is inflamed edematous and boggy but not obvious fluctuant area. See images Data 09/26/25 04:19 09/26/25 04:19 Micro: Microbiology 09/25/25 12:50 Gram Stain - Final Foot - Left 09/25/25 12:56 Gram Stain - Final Foot - Left A&P Assessment and plan 1. Osteomyelitis of foot, left, acute: 2. Cellulitis of foot, left: 3. CKD stage 3a, GFR 45-59 ml/min: 4. Acute kidney injury due to nephrotoxicity: 5. Type 2 diabetes mellitus with other diabetic neurological complication: Plan: Plan- 1. Osteomyelitis due to type 2 diabetes mellitus: Patient seen by Podiatry and ID Appreciate recs Underwent partial Lisfranc capitation of left foot with findings of osteomyelitis of left first, second and third metatarsal Post op care and management Antibiotics as noted per ID- continue zosyn and vancomycin. PICC line placement 2. Cellulitis of foot, left: As above history of MRSA continue with vancomycin plus Zosyn for polymicrobial infection given his diabetes 3. CKD stage 3a, GFR 45-59 ml/min: Lisinopril was held. Patient is not on any metformin given his diminished GFR. Bactrim was stopped. 4. Acute kidney injury due to nephrotoxicity: Improved with hydration 5. Diabetes mellitus: Resumed home Lantus and home preprandial short acting insulin 6. Diabetic neuropathy: Consider gabapentin or Lyrica DVT prophylaxis-sq heparin Code status- Full Discussed with care team members PDMP PDMP Reviewed: Not Reviewed Attestations 2 Medical Necessity Statement*: Requires further hospitalization for management of osteomyelitis of the foot as patient requires surgical correction and possibly IV antibiotics, GOLDIE on CKD in setting of hypertension, type 2 diabetes mellitus Coding Level of Care Code Acute Code for [facility] Diagnoses Osteomyelitis of foot, left, acute M86.172 Cellulitis of foot, left L03.116 CKD stage 3a, GFR 45-59 ml/min N18.31 Acute kidney injury due to nephrotoxicity N17.8; N14.4 Type 2 diabetes mellitus with other diabetic neurological complication E11.49
[2025-09-26 20:00] VITALS: BP 194/73; PULSE 74; RESP 18; TEMP 36.8; O2SAT 93
[2025-09-26] MEDS: metoprolol succinate ER (24 HR) 50 mg Tablet PO (20:52)
[2025-09-26] MEDS: insulin glargine 100 units/1 mL 33 UNIT SUBCUT (20:53)
[2025-09-27] VITALS: BP 159/74; PULSE 68; RESP 18; TEMP 36.8; O2SAT 94
[2025-09-27] MEDS: heparin 5,000 unit/mL INJ 1 mL 5000 UNIT SUBCUT ×3 (00:43→23:36)
[2025-09-27] MEDS: HYDROcodone-acetaminophen 10-325 mg Tablet 1 TAB PO ×4 (02:12→23:35)
[2025-09-27 02:31] LABS: Magnesium 1.9 mg/dL (1.7-2.3)
[2025-09-27 03:06] LABS: Alanine Aminotransferase 15 U/L (0-41); Albumin Level 3.7 g/dL (3.5-5.2); Alkaline Phosphatase 38 U/L (40-130); Anion Gap 14.1 (5-19); Aspartate Amino Transferase 16 U/L (0-40); Blood Urea Nitrogen 18 mg/dL (6-20); Calcium 8.5 mg/dL (8.5-10.5); Carbon Dioxide 23 mmol/L (22-29); Chloride 104 mmol/L (98-107); Globulin 2.3 g/dL (1.3-4.6); Glucose 104 mg/dL (65-115); Osmolality Calculated 286 mOsm/kg (285-295); Potassium 4.1 mmol/L (3.5-5.1); Sodium 137 mmol/L (136-145); Total Protein 6.0 g/dL (6.6-8.7)
[2025-09-27] MEDS: vancomycin 1,750 MG/350 ML PIGGYBACK 175 MG IV (03:33)
[2025-09-27 04:00] VITALS: BP 165/73; PULSE 64; RESP 18; TEMP 36.7; O2SAT 95
[2025-09-27 07:36] VITALS: BP 163/57; PULSE 64; RESP 19; TEMP 36.8; O2SAT 93
--- NOTE | 2025-09-27 09:12 | P.PN_ITS ---
Subjective 2 Subjective: No acute overnight events. Denies pain or any new complaints Vitals/I&O/Wt Last Vital Signs Temp 98.3 F 09/27/25 07:36 Pulse 64 09/27/25 07:36 Resp 19 H 09/27/25 07:36 BP 163/57 09/27/25 07:36 Pulse Ox 93 09/27/25 07:36 O2 Del Method Room Air 09/27/25 07:36 O2 Flow Rate 8 09/25/25 13:20 09/26/25 09/27/25 09/27/25 22:59 06:59 14:59 Intake Total / 2009 705 / 2715 240 / 240 Output Total 1425 / 1825 400 / 2225 Balance -655 / 185 305 / 490 240 / 240 Weight last 48 hrs Weight 123.434 kg Weight 59.783 kg Physical Exam 2 Narrative: General well-developed well-nourished male in no acute cardiopulmonary stress CV regular rate and rhythm Lungs clear to auscultation bilaterally Abdomen positive bowel tones soft nontender Back is mild flank tenderness left greater than right Calves left side 1+ edema with an enlarged right side not enlarged Bilateral foot amputations noted the left dorsal foot is inflamed edematous and boggy but not obvious fluctuant area. See images Data 09/26/25 04:19 09/27/25 02:01 Micro: Microbiology 09/25/25 12:56 Gram Stain - Final Foot - Left Anaerobic Culture - Preliminary 09/25/25 12:50 Gram Stain - Final Foot - Left MRI: Radiologist's impression: Foot MRI 09/24/25 13:29 IMPRESSION: 1. Transmetatarsal amputation of the 1st through 5th toes. 2. Increased signal intensity on STIR and T2 weighted images of the entire remaining 1st and 2nd metatarsal in the tip of the remaining 3rd metatarsal. Cortical loss seen involving the distal remaining 1st and 2nd metatarsals. 3. Soft tissue abscess surrounding the remaining 1st metatarsal, surrounding the distal remaining 2nd metatarsal and the tip of the remaining 3rd metatarsal. 4. Diffuse edema/cellulitis ankle and foot. Foot X-Ray 09/26/25 07:34 IMPRESSION: 1. Multirray forefoot amputation with complete amputation of the first, second, and third rays and partial amputation of the fourth and fifth metatarsals. 2. Soft tissue swelling of the forefoot, with several large locules of air. A&P Assessment and plan 1. Osteomyelitis of foot, left, acute: 1. Osteomyelitis due to type 2 diabetes mellitus: Patient seen by Podiatry and ID Underwent transmetatarsal amputation of left foot with findings of osteomyelitis of left first, second and third metatarsal on 09/[address] Cali Post op care and management Await pathology. PICC line placed Per ID- recommend discharge with daptomycin 8 mg/kg every 24 hours until 10/29/24 Weekly CBC, LFT, BMP and CPK to be faxed to ID clinic 2. Cellulitis of foot, left: As noted above 3. CKD stage 3a, GFR 45-59 ml/min: Lisinopril was held. Patient is not on any metformin given his diminished GFR. Bactrim was stopped. Creatinine at baseline 4. Acute kidney injury due to nephrotoxicity: Improved with hydration 5. Type 2 diabetes mellitus with other diabetic neurological complication: Resumed home Lantus and home preprandial short acting insulin Plan: DVT prophylaxis-sq heparin Code status- Full Discussed with care team members PDMP PDMP Reviewed: Not Reviewed Attestations 2 Medical Necessity Statement*: Requires further hospitalization for management of osteomyelitis of the foot , post op care and IV antibiotics, GOLDIE on CKD in setting of hypertension, type 2 diabetes mellitus Coding Level of Care Code 40609 Diagnoses Osteomyelitis of foot, left, acute M86.172 Cellulitis of foot, left L03.116 CKD stage 3a, GFR 45-59 ml/min N18.31 Acute kidney injury due to nephrotoxicity N17.8; N14.4 Type 2 diabetes mellitus with other diabetic neurological complication E11.49
[2025-09-27 11:23] VITALS: BP 130/51; PULSE 63; RESP 18; TEMP 36.8; O2SAT 93
--- NOTE | 2025-09-27 11:23 | P.PN_ITS ---
Subjective 2 Subjective: Patient seen bedside this p.m. Tolerating regular diet. Postoperative pain is subsiding. Afebrile, Patient denies any subjective nausea, vomiting, fever, chills, shortness of breath or chest pain. 2 days status post partial foot amputation left foot secondary to osteomyelitis. Vitals/I&O/Wt Last Vital Signs Temp 98.3 F 09/27/25 07:36 Pulse 64 09/27/25 07:36 Resp 19 H 09/27/25 07:36 BP 163/57 09/27/25 07:36 Pulse Ox 93 09/27/25 07:36 O2 Del Method Room Air 09/27/25 07:36 O2 Flow Rate 8 09/25/25 13:20 09/26/25 09/27/25 09/27/25 22:59 06:59 14:59 Intake Total 770 / 2010 705 / 2715 240 / 240 Output Total 1425 / 1825 400 / 2225 Balance -655 / 185 305 / 490 240 / 240 Weight last 48 hrs Weight 272 lb 2 oz Weight 131 lb 12.8 oz Physical Exam 2 Narrative: GENERAL: Patient is alert and oriented ?3 and in no acute distress. The following is a focused left lower extremity exam. VASCULAR: Dorsalis pedis and posterior tibial arteries palpable. Capillary refill time less than 3 seconds to the TMA stump left foot. Calf is supple and nontender proximally and distally. Edema to the left forefoot. NEUROLOGICAL: Protective sensation absent to the lower extremities. DERMATOLOGICAL: Left foot surgical incision is well coapted. Resolved cellulitis left foot. No purulent drainage no open wound at this time. MUSCULOSKELETAL: Status post left transmetatarsal amputation. Data 09/28/25 05:23 09/28/25 05:23 Micro: Microbiology 09/25/25 12:50 Gram Stain - Final Foot - Left Anaerobic Culture - Preliminary 09/25/25 12:56 Gram Stain - Final Foot - Left Anaerobic Culture - Preliminary A&P Assessment and plan 1. Type 2 diabetes mellitus with other diabetic neurological complication: 2. Cellulitis of foot, left: 3. Osteomyelitis of foot, left, acute: Plan: Diabetic foot infection with tunneling wound left dorsal medial forefoot with surrounding cellulitis. Wound culture from current wound taken 09/02/2025 grew MRSA sensitive to Bactrim. He was prescribed a 7-day course of Bactrim without improvement. New wound culture taken at today's visit. Wound was debrided at today's visit, x- ray left foot taken in clinic, per my interpretation periosteal reaction most prominent on the medial cortex of the remaining first metatarsal diaphysis concerning for acute osteomyelitis. - MRI left foot suggestive of osteomyelitis left first, second, third metatarsals. - Recommend PICC line and extended course of antibiotic therapy, appreciate infectious disease recommendations. - Nonweightbearing left foot. Bone culture pending taken intraoperatively 09/25/2025, of note wound culture taken 09/02/2025 was taken when patient was not on antibiotics and was taken postdebridement and would be a reliable backup culture to rely on for guidance of antibiotic therapy. No further surgical intervention during this hospitalization, patient will remain nonweightbearing on the left lower extremity, plans for PICC line and 6- week course of IV antibiotics, follow-up in podiatry clinic. PDMP PDMP Reviewed: Not Reviewed Attestations 2 Medical Necessity Statement*: Deferred to primary Coding Level of Care Code Acute Code for [facility] Fwd Diagnoses Type 2 diabetes mellitus with other diabetic neurological complication E11.49 Cellulitis of foot, left L03.116 Osteomyelitis of foot, left, acute M86.172
--- NOTE | 2025-09-27 14:44 | PC.NURSE ---
Notified Dr. Landers patient refused 15 units of insulin for afternoon. Blood sugar 219. Patient stated he would drop. Will take blood sugar again between 4-4:30. Patient will take with dinner if needs it.
[2025-09-27 16:00] VITALS: BP 137/69; PULSE 67; RESP 18; TEMP 36.8; O2SAT 94
--- NOTE | 2025-09-27 17:20 | PHA.VACGOAL ---
Vancomycin Goal - Goal Vancomycin Goal:: 15-20 mg/L Vancomycin Indication:: Osteo - Therapy Day of therpy:: Day []of [] . Actual body weight (kg): 123.434 kg - Data Labs: WBC 8.63 10^3/uL (3.29-11.43) 09/26/25 04:19 RBC 3.93 10^6/uL (3.85-5.65) 09/26/25 04:19 Hgb 10.70 g/dL (11.27-16.99) L 09/26/25 04:19 Hct 33.2 % (37-53) L 09/26/25 04:19 MCV 84.5 fl (82-101) 09/26/25 04:19 MCH 27.2 pg (27-33) 09/26/25 04:19 MCHC 32.2 g/dL (30-55) 09/26/25 04:19 RDW 13.2 % (12.1-15.1) 09/26/25 04:19 Sodium 137 mmol/L (136-145) 09/27/25 02:01 Potassium 4.1 mmol/L (3.5-5.1) 09/27/25 02:01 Chloride 104 mmol/L (98-107) 09/27/25 02:01 Carbon Dioxide 23 mmol/L (22-29) 09/27/25 02:01 Anion Gap 14.1 (5-19) 09/27/25 02:01 BUN 18 mg/dL (6-20) 09/27/25 02:01 Creatinine 1.5 mg/dL (0.7-1.2) H 09/27/25 02:01 GFR Calculation 48.2 mL/min (90-130) L 09/27/25 02:01 Treatment plan:: new consult Regimen:: New start vancomycin for Osteomyelitis of left foot. No prior vancomycin history found. Load dose of 2000 mg given. Started on maintenance dose of 1750 mg q18h. Scr trending down to 1.5 mg/dL. Vancomycin trough below goal trough of 15-20 mg/L. Dose adjusted to 1250 mg q12h. Laboratory Tests 09/24/25 09/25/25 09/26/25 06:13 04:50 04:19 Creatinine 2.1 H 1.6 H 1.5 H Vancomycin Trough 09/27/25 02:01 Creatinine Vancomycin Trough 12.0
[2025-09-27 20:00] VITALS: BP 198/73; PULSE 68; RESP 18; TEMP 36.8; O2SAT 96
[2025-09-27] MEDS: metoprolol succinate ER (24 HR) 50 mg Tablet PO (20:13)
[2025-09-27] MEDS: insulin glargine 100 units/1 mL 33 UNIT SUBCUT (21:20)
[2025-09-28] VITALS: BP 142/68; PULSE 70; RESP 16; TEMP 36.9; O2SAT 96
[2025-09-28 04:00] VITALS: BP 135/61; PULSE 65; RESP 18; TEMP 36.8; O2SAT 92
[2025-09-28 05:25] VITALS: BMI 38.5
[2025-09-28 06:03] LABS: Hematocrit 34.2 % (37-53); Hemoglobin 11.30 g/dL (11.27-16.99); Mean Corpuscular HGB Conc 33.0 g/dL (30-55); Mean Corpuscular Hemoglobin 27.8 pg (27-33); Mean Corpuscular Volume 84.2 fl (82-101); Nucleated Red Blood Cells % 0 %; Platelet Count 283 10^3/cmm (157-399); Red Blood Count 4.06 10^6/uL (3.85-5.65); White Blood Count 7.09 10^3/uL (3.29-11.43)
[2025-09-28 06:15] LABS: Blood Urea Nitrogen 19 mg/dL (6-20); Calcium 8.7 mg/dL (8.5-10.5); Carbon Dioxide 25 mmol/L (22-29); Chloride 103 mmol/L (98-107); Glucose 232 mg/dL (65-115); Osmolality Calculated 294 mOsm/kg (285-295); Sodium 137 mmol/L (136-145)
[2025-09-28 06:19] LABS: Anion Gap 13.4 (5-19); Potassium 4.4 mmol/L (3.5-5.1)
--- NOTE | 2025-09-28 06:32 | P.PN_ITS ---
Subjective 2 Subjective: ID progress note no new complains today Cx still with Coag + staph Vitals/I&O/Wt Last Vital Signs Temp 98.2 F 09/28/25 04:00 Pulse 65 09/28/25 04:00 Resp 18 09/28/25 04:00 BP 135/61 09/28/25 04:00 Pulse Ox 92 09/28/25 04:00 O2 Del Method Room Air 09/28/25 04:00 O2 Flow Rate 8 09/25/25 13:20 09/27/25 09/27/25 09/28/25 14:59 22:59 06:59 Intake Total 970 / 970 715 / 1685 250 / 1935 Output Total 1650 / 1650 400 / 2050 Balance 970 / 970 -935 / 35 -150 / -115 Weight last 48 hrs Weight 121.699 kg Weight 123.434 kg Physical Exam 2 Narrative: Seen via telehealth General: No acute distress, AO x3 Neuro: No focal deficits Extremities: Surgical dressing not opened for exam Data 09/28/25 05:23 09/28/25 05:23 Micro: Microbiology 09/25/25 12:50 Gram Stain - Final Foot - Left Anaerobic Culture - Preliminary Tissue Culture - Preliminary 09/25/25 12:56 Gram Stain - Final Foot - Left Anaerobic Culture - Preliminary Tissue Culture - Preliminary A&P Assessment and plan 1. Cellulitis of foot, left: 2. Osteomyelitis of foot: Plan: 55M with PMH as noted above MRI with osteomyelitis of metatarsal along with cellulitis and abscess S/P Transmetatarsal amputation now Case discussed with podiatry- cannot r/o proximal extension , pathology awaited Given the above and recent failure of po Bactrim as outpatient , favor to use iv abx for treatment Patient had PICC Line placed yesterday recommend discharge with iv Daptomycin 8mg/kg every 24 hrs until 10/29/24 Weekly CBC, creat, LFT anD cpk to be faxed to ID clinic for review 09/28/25 : no acute interim events. CX remains with coag + staph, awaiting final ID and susceptibility, suspect MRSA given past and recent outpatient cx. Continue iv vancomycin. Recommend discharge with iv daptomycin as above. Noted patient's updated weight due to which home dose of daptomycin has been changed. f/up Oct 29 in ID clinic as above. PDMP PDMP Reviewed: Not Reviewed Attestations 2 Medical Necessity Statement*: per admitting Coding Level of Care Code Acute Code for g Fwd Diagnoses Cellulitis of foot, left L03.116 Osteomyelitis of foot M86.9
[2025-09-28 08:10] VITALS: BP 176/68; PULSE 63; RESP 19; TEMP 37; O2SAT 97
[2025-09-28] MEDS: HYDROcodone-acetaminophen 10-325 mg Tablet 1 TAB PO (08:22)
[2025-09-28 11:35] VITALS: BP 136/47; PULSE 66; RESP 18; TEMP 36.7; O2SAT 95
[2025-09-28] MEDS: heparin 5,000 unit/mL INJ 1 mL 5000 UNIT SUBCUT (11:37)
--- NOTE | 2025-09-28 13:28 | PM.PN ---
Subjective Subjective: Patient seen bedside this p.m. Tolerating regular diet. Postoperative pain is subsiding. Afebrile, Patient denies any subjective nausea, vomiting, fever, chills, shortness of breath or chest pain. 3 days status post partial foot amputation left foot secondary to osteomyelitis. Vitals/I&O/Wt Last Vital Signs Temp 98.0 F 09/28/25 11:35 Pulse 66 09/28/25 11:35 Resp 18 09/28/25 11:35 BP 136/47 09/28/25 11:35 Pulse Ox 95 09/28/25 11:35 O2 Del Method Room Air 09/28/25 11:35 O2 Flow Rate 8 09/25/25 13:20 09/27/25 09/28/25 09/28/25 22:59 06:59 14:59 Intake Total 715 / 1685 250 / 1935 1210 / 1210 Output Total 1650 / 1650 400 / 2050 1025 / 1025 Balance -935 / 35 -150 / -115 185 / 185 Weight last 48 hrs Weight 268 lb 4.8 oz Weight 272 lb 2 oz Physical Exam Narrative: GENERAL: Patient is alert and oriented ?3 and in no acute distress. The following is a focused left lower extremity exam. VASCULAR: Dorsalis pedis and posterior tibial arteries palpable. Capillary refill time less than 3 seconds to the TMA stump left foot. Calf is supple and nontender proximally and distally. Edema to the left forefoot. NEUROLOGICAL: Protective sensation absent to the lower extremities. DERMATOLOGICAL: Left foot surgical incision is well coapted. Resolved cellulitis left foot. No purulent drainage no open wound at this time. MUSCULOSKELETAL: Status post left transmetatarsal amputation. Data 09/28/25 05:23 09/28/25 05:23 Micro: Microbiology 09/25/25 12:50 Gram Stain - Final Foot - Left Anaerobic Culture - Preliminary Tissue Culture - Preliminary 09/25/25 12:56 Gram Stain - Final Foot - Left Anaerobic Culture - Preliminary Tissue Culture - Preliminary A&P Assessment and plan 1. Type 2 diabetes mellitus with other diabetic neurological complication: 2. Cellulitis of foot, left: 3. Osteomyelitis of foot, left, acute: Plan: Diabetic foot infection with tunneling wound left dorsal medial forefoot with surrounding cellulitis. Wound culture from current wound taken 09/02/2025 grew MRSA sensitive to Bactrim. He was prescribed a 7-day course of Bactrim without improvement. New wound culture taken at today's visit. Wound was debrided at today's visit, x-ray left foot taken in clinic, per my interpretation periosteal reaction most prominent on the medial cortex of the remaining first metatarsal diaphysis concerning for acute osteomyelitis. - MRI left foot suggestive of osteomyelitis left first, second, third metatarsals. - Recommend PICC line and extended course of antibiotic therapy, appreciate infectious disease recommendations. - Applied short leg cast with cast shoe left lower extremity heel touch only for transfers. Bone culture pending taken intraoperatively 09/25/2025, of note wound culture taken 09/02/2025 was taken when patient was not on antibiotics and was taken postdebridement and would be a reliable backup culture to rely on for guidance of antibiotic therapy. No further surgical intervention during this hospitalization, patient will remain nonweightbearing on the left lower extremity, plans for PICC line and 6-week course of IV antibiotics, follow-up in podiatry clinic. Follow-up in podiatry clinic 10/02/2025 at 2:00 PM. PDMP PDMP Reviewed: Not Reviewed Attestations Medical Necessity Statement*: Deferred to primary Coding Level of Care Code Acute Code for [facility] Diagnoses Type 2 diabetes mellitus with other diabetic neurological complication E11.49 Cellulitis of foot, left L03.116 Osteomyelitis of foot, left, acute M86.172
[2025-09-28 16:01] VITALS: BP 137/47; PULSE 66; RESP 18; TEMP 36.6; O2SAT 95
--- NOTE | 2025-09-28 19:36 | PM.DCS ---
Discharge Providers Date of Admission: 09/23/25 21:07 Date of Discharge: September 28, 2025 Attending Provider at Admission: Jewel Prasad MD Attending Provider at Discharge: Humphrey Holland MD Primary Care Provider: Tito Puentes MD Diagnoses at Discharge Discharge Diagnosis 1. Type 2 diabetes mellitus with other diabetic neurological complication: 2. Cellulitis of foot, left: 3. Osteomyelitis of foot, left, acute: Reason for Visit Reason for Visit: Possible Bone infection Dr Cali Brief History: As per the previous notes of the admitting physician: Braxton Rosales is a 55 year old male with diabetic neuropathy and CKD 3 has had recurrent diabetic foot ulcers with bilateral toe amputations of all his toes bilaterally. His last amputation was 2 years ago including the third and fourth toes of the left foot. Patient had a grape sized bulging ulcer on his left foot debrided on August 25. He has been on antibiotics since that time including Bactrim. Patient's foot inflammation has continued to worsen with cellulitis, soft tissue infection and suspected osteomyelitis. He also has acute kidney injury presumably from the Bactrim. Patient reports he has had MRSA in his wound. Patient's white count is 11 hide normal compared to baseline around 6 and see reactive protein is elevated at 63. He has had chills and sweats but no measured fevers. A1c he says runs at 6.3 and indeed it was 6.3 in August. Blood sugars currently 170 by his continuous blood glucose monitor Hospital Course Hospital Course Patient admitted as a case of osteomyelitis of the left foot with associated cellulitis. He was following outpatient and his recent failure of p.o. Bactrim as outpatient and therefore ID was taken on board. The osteomyelitis was confirmed with MRI and showed also abscess with status post transmetatarsal amputation after discussing and having the processing tech on board. Appropriate cultures were sent and followed. The patient had PICC line placed as inpatient and was discharged with IV daptomycin as per recommendation from the ID specialist and follow the weekly labs that were also ordered and arranged as per the egg caser. It was suspected that he has MRSA given the his past recent failure of the treatment. Therefore antibiotics were adjusted at the time of discharge. Medications were reconciled after confirmation and according to patient comorbidities and appropriate follow-ups and referrals were provided at the time of discharge. Patient condition has been discussed at length with the patient/family, I have independently reviewed the chart labs imaging/diagnostics/EKG. the goals of care and code status with the patient/family/NOK/legal provider service representative, and documented accordingly. The management has been done according to the current clinical condition with respect to patient goals of care and based on recommendations/guidelines. The patient/family has been informed about the current condition and further plan of care. Agreed with the plan of care and understood without any language barrier. Every effort was made to ensure accuracy of laminating machine offbearer. Any obvious errors or omissions should be clarified with the author of the document. Physical Exam Narrative: General: Alert and oriented, lying comfortably without any distress HEENT: Normocephalic, atraumatic, grossly unremarkable exam Cardio: normal rate rhythm, normal S1-S2 without any murmurs, rubs, or gallops and JVD normal Respiratory: normal vascular breathing on auscultation without any wheezes, stridor, rhonchi GI: Abdomen soft, nontender, nondistended, normoactive bowel sounds present all 4 quadrants, Neuro: intact cranial nerves motor and sensory and cerebellar/coordination function without any focal neurological deficit Behavior: Appropriate and cooperative Extremities: Adequate palpable pulses, Status post left transmetatarsal amputation, adjacent skin looks healing and no signs of active cellulitis of infection along the margins of the dressing Discharge Data Studies Completed and Pending Completed Studies During Hospitalization Category Date Time Status CXRP [XR chest 1V portable [id number]] Routine Exams 09/25/25 12:31 Completed XR foot LT min 3V* [id number] Routine Exams 09/26/25 07:34 Completed MR foot LT wo con* [id number] Routine MRI 09/24/25 13:29 Completed Pending at discharge Category Date Time Status Anaerobic Culture Routine Lab 09/25/25 12:50 Results Anaerobic Culture Routine Lab 09/25/25 12:56 Results Bacterial Antigen Stat Lab 09/24/25 08:42 Ordered Blood Culture Stat Lab 09/24/25 10:29 Results CDIFF [C.Diff PCR (Lab)] Routine Lab 09/24/25 00:24 Ordered Tissue Culture and Gram Stain Routine Lab 09/25/25 12:50 Results Tissue Culture and Gram Stain Routine Lab 09/25/25 12:56 Results Radiology Impressions Foot MRI 09/24/25 13:29 IMPRESSION: 1. Transmetatarsal amputation of the 1st through 5th toes. 2. Increased signal intensity on STIR and T2 weighted images of the entire remaining 1st and 2nd metatarsal in the tip of the remaining 3rd metatarsal. Cortical loss seen involving the distal remaining 1st and 2nd metatarsals. 3. Soft tissue abscess surrounding the remaining 1st metatarsal, surrounding the distal remaining 2nd metatarsal and the tip of the remaining 3rd metatarsal. 4. Diffuse edema/cellulitis ankle and foot. Chest X-Ray 09/25/25 12:31 IMPRESSION: Left arm PICC line placement in proper position ready for use. Foot X-Ray 09/26/25 07:34 IMPRESSION: 1. Multirray forefoot amputation with complete amputation of the first, second, and third rays and partial amputation of the fourth and fifth metatarsals. 2. Soft tissue swelling of the forefoot, with several large locules of air. Laboratory Results WBC 7.09 10^3/uL (3.29-11.43) 09/28/25 05:23 RBC 4.06 10^6/uL (3.85-5.65) 09/28/25 05:23 Hgb 11.30 g/dL (11.27-16.99) 09/28/25 05:23 Hct 34.2 % (37-53) L 09/28/25 05:23 MCV 84.2 fl (82-101) 09/28/25 05:23 MCH 27.8 pg (27-33) 09/28/25 05:23 MCHC 33.0 g/dL (30-55) 09/28/25 05:23 RDW 13.3 % (12.1-15.1) 09/28/25 05:23 Plt Count 283 10^3/cmm (157-399) 09/28/25 05:23 MPV 9.9 fL (7.4-10.4) 09/28/25 05:23 Neut % (Auto) 52.8 % 09/28/25 05:23 Lymph % (Auto) 29.6 % 09/28/25 05:23 Dickenson % (Auto) 7.5 % 09/28/25 05:23 Eos % (Auto) 8.6 % 09/28/25 05:23 Baso % (Auto) 0.8 % 09/28/25 05:23 Neut # (Auto) 3.74 10^3/uL (1.8-7.7) 09/28/25 05:23 Lymph # (Auto) 2.1 10^3/uL (0.8-4.8) 09/28/25 05:23 Dickenson # (Auto) 0.5 10^3/uL (0.2-0.9) 09/28/25 05:23 Eos # (Auto) 0.6 10^3/uL (0.0-0.8) 09/28/25 05:23 Baso # (Auto) 0.1 10^3/uL (0.0-0.1) 09/28/25 05:23 Nucleated RBC % (auto) 0 % 09/28/25 05:23 Nucleated RBCs # 0.0 /100WBC 09/28/25 05:23 ESR 7 mm/hr (0-10) 09/23/25 20:22 Sodium 137 mmol/L (136-145) 09/28/25 05:23 Potassium 4.4 mmol/L (3.5-5.1) 09/28/25 05:23 Chloride 103 mmol/L (98-107) 09/28/25 05:23 Carbon Dioxide 25 mmol/L (22-29) 09/28/25 05:23 Anion Gap 13.4 (5-19) 09/28/25 05:23 BUN 19 mg/dL (6-20) 09/28/25 05:23 Creatinine 1.2 mg/dL (0.7-1.2) 09/28/25 05:23 GFR Calculation 62.4 mL/min (90-130) L 09/28/25 05:23 Glucose 232 mg/dL (65-115) H 09/28/25 05:23 POC Glucose 211 mg/dL (70-110) H 09/28/25 10:38 Calculated Osmolality 294 mOsm/kg (285-295) 09/28/25 05:23 Lactic Acid 1.0 mmol/L (0.5-2.2) 09/23/25 20:22 Calcium 8.7 mg/dL (8.5-10.5) 09/28/25 05:23 Phosphorus 3.9 mg/dL (2.5-4.5) 09/24/25 06:13 Magnesium 1.9 mg/dL (1.7-2.3) 09/27/25 02:01 Iron 49 ug/dL (59-158) L 09/24/25 06:13 TIBC 291 mcg/dl 09/24/25 06:13 % Saturation 16.8 % (20-50) L 09/24/25 06:13 Unsat Iron Binding 242 ug/dL (112-347) 09/24/25 06:13 Total Bilirubin 0.2 mg/dL (0.15-1.2) 09/27/25 02:01 AST 16 U/L (0-40) 09/27/25 02:01 ALT 15 U/L (0-41) 09/27/25 02:01 Alkaline Phosphatase 38 U/L (40-130) L 09/27/25 02:01 Creatine Kinase 55 U/L (39-308) 09/27/25 02:01 C-Reactive Protein 65.0 mg/L (0.0-4.9) H 09/27/25 02:01 Total Protein 6.0 g/dL (6.6-8.7) L 09/27/25 02:01 Albumin 3.7 g/dL (3.5-5.2) 09/27/25 02:01 Globulin 2.3 g/dL (1.3-4.6) 09/27/25 02:01 Triglycerides 254 mg/dL (0-150) H 09/25/25 04:50 Cholesterol 146 mg/dL (0-200) 09/25/25 04:50 LDL Cholesterol, Calc 73 mg/dL (50-129) 09/25/25 04:50 Total VLDL Cholesterol 51 mg/dL (0-30) H 09/25/25 04:50 HDL Cholesterol 22 mg/dL (60-100) L 09/25/25 04:50 Cholesterol/HDL Ratio 6.64 mg/dL (1.0-5.00) H 09/25/25 04:50 Vitamin B12 381 pg/mL (232-1245) 09/24/25 06:13 Folate > 20.0 ng/mL (4.5-32.2) 09/25/25 04:50 Procalcitonin 0.14 ng/mL (0-0.5) 09/24/25 06:13 TSH 6.26 uIU/mL (0.27-4.20) H 09/24/25 06:13 Vancomycin Trough 12.0 ug/mL (10-15) 09/27/25 02:01 Vitals Last Vital Signs Temp 98 F 09/28/25 16:01 Pulse 66 09/28/25 16:01 Resp 18 09/28/25 16:01 BP 137/47 09/28/25 16:01 Pulse Ox 95 09/28/25 16:01 O2 Del Method Room Air 09/28/25 11:35 O2 Flow Rate 8 09/25/25 13:20 Discharge Plan Discharge Patient Disposition: Home Condition: Stable Prescriptions: New hydralazine 25 mg Tablet 25 mg PO TID 90 Days Qty: 270 0RF daptomycin in 0.9 % sod chlor 1,000 mg/100 mL piggyback 974 mg IV Q24H 32 Days Rx Instructions: administer over 30 mins Continued (DME) Toe Filler See Rx Instructions .Route .MEDSUPPLY Qty: 1 0RF Rx Instructions: As directed by [employer] (DME) joel bolaños See Rx Instructions .Route .MEDSUPPLY Qty: 1 0RF Rx Instructions: As directed (DME) Diabetic Shoes with toe filler to left and right See Rx Instructions .Route .MEDSUPPLY Qty: 1 0RF Rx Instructions: Diabetic shoes made by the [employer] doxepin 100 mg capsule 200 mg PO BEDTIME Qty: 60 11RF (DME) Dexcom G7 Sap Trainer Misc See Rx Instructions .ROUTE .MEDSUPPLY Qty: 1 0RF Rx Instructions: As directed hydroxyzine HCl 50 mg tablet 50 mg PO QID PRN (Reason: insomnia) Qty: 120 11RF (DME) Blood Glucose Meter See Rx Instructions .Route .MEDSUPPLY Qty: 1 1RF Rx Instructions: 3 times daily (DME) Blood Glucose Test Strips See Rx Instructions .Route .MEDSUPPLY Qty: 100 3RF Rx Instructions: 3 times daily (DME) Dexcom G7 Sensor Device See Rx Instructions .ROUTE .COMPLEX Qty: 9 1RF Dose Instruction: CHANGE EVERY 10 DAYS Rx Instructions: CHANGE EVERY 10 DAYS (DME) pen needle, diabetic [TechLITE Pen Needle] 32 gauge x 5/32 needle See Rx Instructions .ROUTE .COMPLEX Qty: 100 3RF Dose Instruction: FOR USE WITH INSULIN UP TO 5 TIMES DAILY Rx Instructions: FOR USE WITH INSULIN UP TO 5 TIMES DAILY metoprolol succinate 50 mg tablet extended release 24 hr 50 mg PO BEDTIME Qty: 90 0RF aspirin 81 mg tablet,delayed release (DR/EC) 81 mg PO DAILY Qty: 90 1RF lisinopril 40 mg tablet 40 mg PO DAILY Qty: 90 2RF fenofibrate nanocrystallized 145 mg tablet 145 mg PO DAILY Qty: 90 0RF insulin aspart U-100 [Novolog FlexPen U-100 Insulin] 100 unit/mL (3 mL) insulin pen 20 unit SUBCUT TID Rx Instructions: before meals insulin glargine [Lantus Solostar U-100 Insulin] 100 unit/mL (3 mL) insulin pen 33 unit SUBCUT BEDTIME Patient Comments: Trulicity 0.75 mg/0.5 mL Pen Injector 0.75 mg SUBCUT Q7D hydrocodone-acetaminophen 10-325 mg tablet 1 tab PO Q6H PRN (Reason: Pain) meloxicam 15 mg tablet 15 mg PO DAILY PRN (Reason: Pain) prednisolone acetate 1 % drops,suspension 1 drp ophthalmic (eye) QID Veneer Patcher OK for DC: Infectious Disease and Podiatry Discharge Order = DC NOW: Discharge Order (Routine); Ordered 09/28/25 Ordered By: Humphrey Holland Other Ambulatory Orders: Miscellaneous Procedure (Order) Location: None Selected Ordered By: Alexa Graves Complete Blood Count w/Auto (Routine) Timeframe: 1 Week Location: Determined by Patient Ordered By: Humphrey Holland Creatine Phosphokinase (Routine) Timeframe: 1 Week Facility: [facility] - Location: Lab - Main Lab Ordered By: Humphrey Holland Comprehensive Metabolic Panel (Routine) Timeframe: 1 Week Facility: [facility] - Location: Lab - Main Lab Ordered By: Humphrey Holland Referrals: [facility] Infusion [facility] [Outside] - 09/29/25 11:00 am Referral Note: You will need weekly labs and PICC line dressing changes. This is where you will go for that. If you do not have an appointment by the time you DC please contact this office on Sunday to obtain your appointment. Thank you. Ernesto Cali DPM [Physician, Podiatry] - 10/02/25 2:00 pm Referral Note: post discharge follow up fo chronic OM of the left foot Alexa Graves MD [Hospitalist, Hospitalist] - 10/29/25 1:00 pm Referral Note: ID followup for chronic OM of the left foot Tito Puentes MD [Primary Care Provider, [facility]] - 10/13/25 9:30 am Discharge Diet: Advance as tolerated, Cardiac and Diabetic Discharge Activity: Limit activity as instructed Patient Instructions: Diabetic Neuropathy, Hydralazine (By mouth), Acute Wound Care (DC), Opioid Safety, Post Anesthesia Care, Patient Portal & Devon Instructions Activity Restrictions/Additional Instructions: Instructions from Dr. Cali/podiatry. Please keep left leg cast clean, dry and intact Heel touch only for transfers otherwise nonweightbearing to the left lower extremity. Elevate while resting. Follow-up in podiatry clinic 10/02/2025 at 2:00 PM, sooner should you experience any complications. Discharge Attestations Time Spent in Discharge Care*: greater than 30 min Specific Discharge Activities: educating patient, educating and/or supporting family/caregiver, discussing with pcp/other providers, discussing with continuous pillowcase cutter/social workers/dc planners, documenting/other paperwork and evaluating patient/reviewing data Status at Discharge: Cognitive status at discharge: cognitively intact, Behavioral status at discharge: cooperative, Functional status at discharge: other assisted ambulation, Overall status at discharge: patient is progressing back to baseline Quality Metrics Clinical Quality Measures [ No reported AMI, CVA or VTE this stay] Coding Level of Care Code Acute Code for Chg Fwd Diagnoses Type 2 diabetes mellitus with other diabetic neurological complication E11.49 Cellulitis of foot, left L03.116 Osteomyelitis of foot, left, acute M86.172
== END 2025-09-28 16:02 | disposition home or self-care (01) | DRG 305 ==
LOC: ER 21:48 → MEDSURG 22:08
PROVIDERS: Emergency Medicine; Internal Medicine; Podiatrist Foot & Ankle Surgery; Student in an Organized Health Care Education/Training Program; Admitting Provider Internal Medicine; Emergency Provider Emergency Medicine; PCP Family Medicine; Visit Provider Student in an Organized Health Care Education/Training Program
PROC: 0Y6N0Z9 Detachment at Left Foot, Partial 1st Ray, Open Approach (ICD-10-PCS; CPT 28810; principal; 2025-09-25 13:35)
DX: E11.69 Type 2 diabetes mellitus with other specified complication (principal); E11.40 Type 2 diabetes mellitus with diabetic neuropathy, unspecified; E11.22 Type 2 diabetes mellitus with diabetic chronic kidney disease; I12.9 Hypertensive chronic kidney disease with stage 1 through stage 4 chronic kidney disease, or unspecified chronic kidney disease; M86.172 Other acute osteomyelitis, left ankle and foot; N18.31 Chronic kidney disease, stage 3a; N17.9 Acute kidney failure, unspecified; Z79.85 Long-term (current) use of injectable non-insulin antidiabetic drugs; Z79.4 Long term (current) use of insulin; L03.116 Cellulitis of left lower limb; Z89.422 Acquired absence of other left toe(s)
CPT/HCPCS: 36415; 36416; 36573; 36592; 71045; 73630; 73718; 80048; 80053; 80061; 80202; 82550; 82607; 82746; 82962; 83540; 83550; 83605; 83735; 84100; 84145; 84443; 85025; 85651; 86140; 87040; 87070; 87075; 87077; 87176; 87186; 87205; 96365; 96366; 96367; 96372; 99285; J1644; J1815; J2250; J2543; J2704; J3010; J3372; J3373; J3490; J7030; J9999

== ENCOUNTER 2025-10-01 23:49 | Emergency (ER) | payer MEDICAID, SELFPAY ==
--- OUTSIDE RECORDS SUMMARY | 2024-08-10 03:00 | XMS_ITS ---
Author Organization [facility] Address [address] [place] [address] Care Team Providers Care Accessories Repairer Name Role Phone Deloris NICHOLS, Tito Primary Care Provider Unavailab Lucina Zhong Unavailable [phone] Migration, Provider Unavailable Unavailable REASON FOR VISIT EMR-Trent Medications Medication SIG (Take, Route, Frequency, Duration) Notes Start Date End Date Status furosemide 20mg daily *Reorder f rom [facility] for eRx and Interaction Alerts* Active Victoza 2-Bjorn 1.8mg daily *[facility]* Active Adult Low Dose Aspirin 81mg daily *[facility]* Active sildenafil 1tab as directed *[facility]* Active Levemir FlexTouch U100 Insulin 42 units daily *[facility] Interaction [facility]s* Active ropinirole [...] Mauricio hay, 11/26/2025 03:40:00 PM, [address] [place], [address], Progress Notes * Braxton HOSKINS GDOB: [birth year] (55 yo M)Acc No.[id number]:08/10/2024 Patient: Braxton BADILLO Nely :1970 A ge:54 Y S ex:Male Address:[address] [place] [address], [address] Subjective: * Chief Complaints: * E MR-Trent [...] daily , Notes to Pharmacist: *Reorder from [facility] for eRx and Interaction Alerts*metoprolol succinate 50mg daily , Notes to Pharmacist: *Reorder from [facility] for eRx and Interaction Alerts*Adult Low Dose Aspirin 81mg daily , Notes to Pharmacist: *Reorder from [facility] for eRx and Interaction Alerts*sildenafil 1tab as directed , Notes to Pharmacist: *Reorder from [facility] for eRx and Interaction Alerts*potassium chloride 30meq every 3 days , Notes to Pharmacist: *Reorder from [facility] for eRx and Interaction Alerts*nortriptyline 100mg at bedtime , Notes to Pharmacist: *Reorder from [facility] for eRx and Interaction Alerts*Levemir FlexTouch U100 Insulin 42 units daily , Notes to Pharmacist: *Reorder from [facility] for eRx and Interaction Alerts*Victoza 2-Bjorn 1.8mg daily , Notes to Pharmacist: *Reorder from [facility] for eRx and Interaction Alerts*pantoprazole 40mg daily , Notes to Pharmacist: *Reorder from [facility] for eRx and Interaction Alerts*rosuvastatin 1tab at bedtime , Notes to Pharmacist: *Reorder from [facility] for eRx and Interaction Alerts*lisinopril 40mg daily , Notes to Pharmacist: *Reorder from [facility] for eRx and Interaction Alerts*Taking ropinirole 1mg daily , Notes to Pharmacist: *Reorder from [facility] for eRx and Interaction Alerts*Taking Novolog Flexpen U-100 Insulin 20units TID , Notes to Pharmacist: *Reorder from [facility] for eRx and Interaction Alerts*Taking furosemide 20mg daily , Notes to Pharmacist: *Reorder from [facility] for eRx and Interaction Alerts*Taking metoprolol succinate 50mg daily , Notes to Pharmacist: *Reorder from [facility] for eRx and Interaction Alerts*Taking Adult Low Dose Aspirin 81mg daily , Notes to Pharmacist: *Reorder from [facility] for eRx and Interaction Alerts*Taking sildenafil 1tab as directed , Notes to Pharmacist: *Reorder from [facility] for eRx and Interaction Alerts*Taking potassium chloride 30meq every 3 days , Notes to Pharmacist: *Reorder from [facility] for eRx and Interaction Alerts*Taking nortriptyline 100mg at bedtime , Notes to Pharmacist: *[facility]*Taking Levemir FlexTouch U100 Insulin 42 units daily , Notes to Pharmacist: *[facility] for [facility] and Interaction Alerts*Taking Victoza 2-Bjorn 1.8mg daily , Notes to Pharmacist: *[facility] for [facility] and Interaction Alerts*Taking pantoprazole 40mg daily , Notes to Pharmacist: *Reorder from [facility] for eRx and Interaction Alerts*Taking rosuvastatin 1tab at bedtime , Notes to Pharmacist: *[facility] for [facility] and Interaction Alerts*Taking lisinopril 40mg daily , Notes to Pharmacist: *Reorder from [facility] for eRx and Interaction Alerts* * * Date:
--- OUTSIDE RECORDS SUMMARY | 2025-10-01 04:57 | XMS_ITS ---
Author Organization [facility] Address [address] [place] [address] Care Team Providers Care Netting Inspector Name Role Phone Deloris NICHOLS, Tito Primary Care Provider Unavailab Lucina Zhong Unavailable [phone] Tito Santiago Unavailable [phone] REASON FOR VISIT WP-MO ERx Medications Medication SIG (Take, Route, Frequency, Duration) Notes Start Date End Date Status Meloxicam 15 MG Tablet 1 tablet as needed Orally Once a day; Duration: 30 days Fill 30 days from previous Rx 10/01/2025 Active HYDROcodone-Acetamin ophen 10-325 MG Tablet 1 tablet Orally every 6 hrs; Duration: 30 days As needed Not to exceed 4 per day Fill on 11/02/2025 10/01/2025 12/02/2025 Active HYDROcodone-Acetamin ophen 10-325 MG Tablet 1 tablet Orally every 6 hrs; Duration: 30 days As needed Not to exceed 4 per day Fill on 10/03/2025 10/01/2025 11/02/2025 Active Encounters Encounter Location Date Provider Diagnosis [facility] [place] [address] [place] [address] 10/01/2025 Tito Santiago Other specific arthropathies, not elsewhere classified, right shoulder M12.811 and Chronic pain syndrome G89.4 Assessments Encounter Date Diagnosis (ICD Code) Assessment Notes Treatment Notes Treatment Clinical Notes Section Notes 10/01/2025 Other specific arthropathies, not elsewhere classified, right shoulder (ICD-10 - M12.811) 10/01/2025 Chronic pain syndrome (ICD-10 - G89.4) Plan Of Treatment Medication Medication Name Sig Start Date Stop Date Notes Meloxicam 15 MG Tablet 1 tablet as neede d Orally Once a day; Duration: 30 days 10/01/2025 Fill 30 days from previous Rx HYDROcodone-Acetaminoph en 10-325 MG Tablet 1 tablet Orally every 6 hrs; Duration: 30 days 10/01/2025 12/02/2025 Fill on 11/02/2025 HYDROcodone-Acetaminoph en 10-325 MG Tablet 1 tablet Orally every 6 hrs; Duration: 30 days 10/01/2025 11/02/2025 Fill on 10/03/2025 Next Appt Details Provider Name:Lucina Mauricio hay, 11/26/2025 03:40:00 PM, [address] [place], [address], Progress Notes * Braxton HOSKINS GDOB: [birth year] (55 yo M)Acc No.[id number]:10/01/2025 Patient: Sue Braxton KINSEY Nely :1970 A ge:55 Y S ex:Male Address:[address] [place] [address], [address] * Refills Continue HYDROcodone-Acetaminophen Tablet, 10-325 MG, Orally, 120 Tablet, 1 tablet, every 6 hrs, As needed Not to exceed 4 per day, 30 days, Refills=0 Continue HYDROcodone-Acetaminophen Tablet, 10-325 MG, Orally, 120 Tablet, 1 tablet, every 6 hrs, As needed Not to exceed 4 per day, 30 days, Refills=0 Continue Meloxicam Tablet, 15 MG, Orally, 30 Tablet, 1 tablet as needed, Once a day, 30 days, Refills=1 Subjective: * Chief Complaints: * W P-MO ERx Assessment: * Assessment: 1. O ther specific arthropathies, not elsewhere classified, right shoulder - M12.811 2 . C hronic pain syndrome - G89.4 Plan: * Treatment: 2. C hronic pain syndrome Continue Meloxicam Tablet, 15 MG, 1 tablet as needed, Orally, Once a day, 30 days, 30 Tablet, Start Date: 10/01/2025, Refills 1, Notes to Pharmacist: Fill 30 days from previous Rx. 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
[2025-10-01 16:13] VITALS: BP 137/47; BMI 38.5
--- OUTSIDE RECORDS SUMMARY | 2025-10-01 23:52 | XMS_ITS | Patient Health Record ---
Author Organization [facility] Address [address] [place] [address] Care Team Providers Care Lead Security Officer Name Role Phone Tito Puentes MD Primary Care Provider Unavailab ileana NicoleLucina alvarez Unavailable [phone] Tito Santiago Unavailable [phone] Allergies No Known Allergies Results Component Value Reference Range Flag Notes Urine Drug Screen (cup read) - 20772 Reviewed date:10/01/2025 10:09:52 AM Interpretation: Performing Lab: Notes/Report: OPI Pos Urine Drug Screen (cup read) - 56041 Reviewed date:01/29/2025 08:45:09 AM Interpretation: Performing Lab: Notes/Report: OPI + Tox Results Reviewed date:04/02/2025 10:16:00 AM Interpretation: Performing Lab: Notes/Report: zzzUrine Drug Screen (confir mation by instrument) - [id number] Reviewed date:12/09/2024 10:36:56 AM Interpretation: Performing Lab: Notes/Report: Urine Drug Screen (cup read) - 26601 Reviewed date:03/26/2025 10:29:23 AM Interpretation: Performing Lab: Notes/Report: OPI + Urine Confirmation Panel (in strument) - [id number] Reviewed date:04/02/2025 10:08:57 AM Interpretation: Performing Lab: [...] Administration. Urine Drug Screen (cup read) - 25439 Reviewed date:06/01/2025 09:04:31 AM Interpretation: Performing Lab: Notes/Report: OPI + OXY + Urine Confirmation Panel (in strument) - [id number] Reviewed date:06/09/2025 02:46:34 PM Interpretation: Performing Lab: [...] by the U.S. Food and Drug Administration. Tox Results Reviewed date:06/09/2025 02:34:09 PM Interpretation: Performing Lab: Notes/Report: zzzUrine Drug Screen (confir mation by instrument) - [id number] Reviewed date:10/07/2024 01:25:28 PM Interpretation: Performing Lab: Notes/Report: Tox Results Reviewed date:12/12/2024 01:46:12 PM Interpretation: Performing Lab: Notes/Report: Urine Confirmation Panel (in strument) - [id number] Reviewed date:12/12/2024 01:38:41 PM Interpretation: Performing Lab: [...] by the U.S. Food and Drug Administration. Reason For Referral No Information Medications Medication SIG (Take, Route, Frequency, Duration) Notes Start Date End Date Status Meloxicam 15 MG Tablet 1 tablet as needed Orally Once a day; Duration: 30 days Fill 30 days from previous Rx 10/01/2025 Active Victoza 2-Bjorn 1.8mg daily *Reorder from [facility] for eRx and Interaction Alerts* Active HYDROcodone-Acetamino phen 10-325 MG Tablet 1 tablet Orally every 6 hrs; Duration: 30 days As needed Not to exceed 4 per day Fill on 11/02/2025 10/01/2025 12/02/2025 Active HYDROcodone-Acetamino phen 10-325 MG Tablet 1 tablet Orally every 6 hrs; Duration: 30 days As needed Not to exceed 4 per day Fill on 09/03/2025 07/29/2025 10/03/2025 Active Adult Low Dose Aspirin 81mg daily *Reorder from [facility] for eRx and Interaction Alerts* Active nortriptyline 100mg at bedtime *Reorder from [facility] for eRx and Interaction Alerts* Active HYDROcodone-Acetamino phen 10-325 MG Tablet 1 tablet Orally every 6 hrs; Duration: 30 days As needed Not to exceed 4 per day Fill on 10/03/2025 10/01/2025 11/02/2025 Active furosemide 20mg daily *Reorder f [facility] for eRx and Interaction Alerts* Active Novolog Flexpen U-100 Insulin 20units TID *Reorder from [facility] for eRx and Interaction Alerts* Active pantoprazole 40mg daily *Reorder from [facility] for eRx and Interaction Alerts* Active ropinirole 1mg daily *Reorder fr om [facility] for eRx and Interaction Alerts* Active Levemir FlexTouch U100 Insulin 42 units daily *Reorder from [facility] for eRx and Interaction Alerts* Active potassium chloride 30meq every 3 days *Reorder from [facility] for eRx and Interaction Alerts* Active sildenafil 1tab as directed *Reorder from [facility] for eRx and Interaction Alerts* Active lisinopril 40mg daily *Reorder f rom [facility] for eRx and Interaction Alerts* Active rosuvastatin 1tab at bedtime *Reorder from [facility] for eRx and Interaction Alerts* Active metoprolol succinate 50mg daily *Reorder from [facility] for eRx and Interaction Alerts* Active Social [...] Polyneuropathy due to type 2 diabetes mellitus (313754392) Type 2 diabetes mellitus with diabetic polyneuropathy (E11.42) 04/09/20 Active confirmed Problem Chronic pain syndrome (575118130) Chronic pain syndrome (G89.4) 04/09/20 Active confirmed Problem Disorder of joint of right shoulder region (disorder) (9742064204063581 3) Other specific arthropathies, not elsewhere classified, right shoulder (M12.811) 04/09/20 Active confirmed Problem Rotator cuff arthropathy of left shoulder (disorder) (0003895734171380 0) Other specific arthropathies, not elsewhere classified, left shoulder (M12.812) 04/09/20 Active confirmed Problem Abnormal gait (60781128) Unspecified abnormalities of gait and mobility (R26.9) 04/09/20 Active confirmed Problem Traumatic amputation of toe OR toes without complication (71998496) 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, 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) 04/09/20 Active confirmed Problem Traumatic amputation, lesser toe (514660172) 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828) 04/09/20 Active confirmed Vital Signs Height-cm 177.8 cm 10/01/2025 Weight-kg 115.67 kg 10/01/2025 Height 70.00 in 10/01/2025 Weight 255 lbs 10/01/2025 BMI 36.58 kg/m2 10/01/2025 Encounters Encounter Location Date Provider Diagnosis [facility] [address] [address] 06/01/2025 Lucina Hughes Type 2 diabetes mellitus with diabetic polyneuropathy E11.42 ; Chronic pain syndrome G89.4 ; Other specific arthropathies, not elsewhere classified, right shoulder M12.811 ; Other specific arthropathies, not elsewhere classified, left shoulder M12.812 ; Unspecified abnormalities of gait and mobility R26.9 ; oil heaterman (current) use of opiate analgesic Z79.891 ; [...] one left lesser toe, initial encounter S98.132A [facility] [address] [address] 03/26/2025 Lucina Hughes Chronic pain syndrom e [...] other malignant neoplasm of skin Z85.828 ; oil heaterman (current) use of opiate analgesic Z79.891 ; 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, initial encounter S98.131A and Complete traumatic amputation of one left lesser toe, initial encounter S98.132A [facility] [address] [address] 01/29/2025 Lucina Hughes Chronic pain syndrom e [...] other malignant neoplasm of skin Z85.828 ; correction (current) use of opiate analgesic Z79.891 ; 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, initial encounter S98.131A and Complete traumatic amputation of one left lesser toe, initial encounter S98.132A [facility] [place] [address] [place] [address] 12/05/2024 Tito Santiago Type 2 diabetes mellitus with diabetic polyneuropathy E11.42 ; Chronic pain syndrome G89.4 ; Other specific arthropathies, not elsewhere classified, right shoulder M12.811 ; Other specific arthropathies, not elsewhere classified, left shoulder M12.812 ; Unspecified abnormalities of gait and mobility R26.9 and correction (current) use of opiate analgesic Z79.891 [facility] [place] [address] [place] [address] 10/01/2025 Lucina Hughes Chronic pain syndrom e G89.4 ; Type 2 diabetes mellitus with diabetic polyneuropathy E11.42 ; Other specific arthropathies, not elsewhere classified, right shoulder M12.811 ; correction (current) use of opiate analgesic Z79.891 ; Other specific arthropathies, not elsewhere classified, left shoulder M12.812 and Unspecified abnormalities of gait and mobility R26.9 [facility] [place] [address] [place] [address] 07/29/2025 Tito Santiago Chronic pain syndrom e G89.4 ; Type 2 diabetes mellitus with diabetic polyneuropathy E11.42 ; Other specific arthropathies, not elsewhere classified, right shoulder M12.811 ; oil heaterman (current) use of opiate analgesic Z79.891 ; Other specific arthropathies, not elsewhere classified, left shoulder M12.812 and Unspecified abnormalities of gait and mobility R26.9 [facility] [place] [address] [place] [address] 10/01/2025 Tito Santiago Other specific arthropathies, not elsewhere classified, right shoulder M12.811 and Chronic pain syndrome G89.4 [facility] [address] [place] [address] 06/01/2025 Tito Santiago Other specific arthropathies, not elsewhere classified, right shoulder M12.811 and Chronic pain syndrome G89.4 [facility] [place] [address] [facility] [place] [address] 03/26/2025 Tito Santiago Other specific arthropathies, not elsewhere classified, right shoulder M12.811 and Chronic pain syndrome G89.4 [facility] [place] [address] [place] [address] 01/29/2025 Tito Santiago Other specific arthropathies, not elsewhere classified, right shoulder M12.811 and Chronic pain syndrome G89.4 Assessments Encounter Date Diagnosis (ICD Code) Assessment Notes Treatment Notes Treatment Clinical Notes Section Notes 10/01/2025 Other specific arthropathies, not elsewhere classified, right shoulder (ICD-10 - M12.811) 12/05/2024 Type 2 diabetes mellitus with diabetic [...] effects are noted. Last UDS and [place] SENIOR PRICING ANALYST reviewed today. Patient is advised that best [...] on his current medication regimen. I did recommend/discusse d lifestyle modifications as well as a bowel [...] effects are noted. Last UDS and [place] SENIOR PRICING ANALYST reviewed today. Patient is advised that best [...] a couple of months and proceed accordingly. 10/01/2025 Chronic pain syndrome (ICD-10 - G89.4) [...] effects are noted. Last UDS and [place] SENIOR PRICING ANALYST reviewed today. Patient is advised that best [...] with diabetic polyneuropathy (ICD-10 - E11.42) 10/01/2025 Chronic pain syndrome (ICD-10 - G89.4) 07/29/2025 Other specific arthropathies, not elsewhere classified, [...] well as for biannual appointment with Dr. Santiago. The patient continues with chronic pain requiring [...] effects are noted. Last UDS and [place] SENIOR PRICING ANALYST reviewed today. Patient is advised that best [...] effects are noted. Last UDS and [place] SENIOR PRICING ANALYST reviewed today. Patient is advised that best long-term goals include increased activity, core strengthening, proper weight management, coping strategies, avoidance of painful triggers, and targeted interventional therapy. We will see the patient for routine follow up in accordance with all clinic policies. We did remind patient today of current guidelines to decrease opioid when possible. We will continue to stress nonopioid treatment. 12/05/2024 Other specific arthropathies, not elsewhere classified, right shoulder (ICD-10 - M12.811) 01/29/2025 Other specific arthropathies, not elsewhere classified, left shoulder (ICD-10 - M12.812) 03/26/2025 Other specific arthropathies, not elsewhere classified, right shoulder (ICD-10 - M12.811) 06/01/2025 Other specific arthropathies, not elsewhere classified, right shoulder (ICD-10 - M12.811) 07/29/2025 correction (current) use of opiate analgesic (ICD-10 - Z79.891) 10/01/2025 Other specific arthropathies, not elsewhere classified, right shoulder (ICD-10 - M12.811) 10/01/2025 oil heaterman (current) use of opiate analgesic (ICD-10 - [...] elsewhere classified, left shoulder (ICD-10 - M12.812) 12/05/2024 Unspecified abnormalities of gait and mobility (ICD-10 - R26.9) 01/29/2025 Complete traumatic amputation of one left lesser toe, subsequent encounter (ICD-10 - S98.132D) 06/01/2025 Unspecified abnormalities of gait and mobility (ICD-10 - R26.9) 03/26/2025 Complete traumatic amputation of one left lesser toe, subsequent encounter (ICD-10 - S98.132D) 07/29/2025 Unspecified abnormalities of gait and mobility (ICD-10 - R26.9) 10/01/2025 Other specific arthropathies, not elsewhere classified, left shoulder (ICD-10 - M12.812) 10/01/2025 Unspecified abnormalities of gait and mobility (ICD-10 - R26.9) 06/01/2025 oil heaterman (current) use of opiate analgesic (ICD-10 - Z79.891) 03/26/2025 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, subsequent encounter (ICD-10 - S98.131D) 01/29/2025 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, subsequent encounter (ICD-10 - S98.131D) 12/05/2024 correction (current) use of opiate analgesic (ICD-10 - [...] toe, subsequent encounter (ICD-10 - S98.131D) 03/26/2025 oil heaterman (current) use of opiate analgesic (ICD-10 - Z79.891) 01/29/2025 correction (current) use of opiate analgesic (ICD-10 - [...] initial encounter (ICD-10 - S98.132A) 12/05/2024 Other Nino Schafer, ayden scribing for Dr. Tito Santiago. I, Dr. Tito Santiago, personally performed the services described in this documentation, as scribed by Nino Woodard, and it is both accurate and complete. 07/29/2025 Other Allison Schafer am scribing for Dr. Tito Santiago. I, Dr. Tito Santiago, personally performed the services described in this documentation, as scribed by Allison Rome, and it is both accurate and complete. Plan Of Treatment Pending Test Test Name Order Date Urine Confirmation Panel (instrument) - [id number] 10/01/2025 Next Appt Details Provider Name:Lucina hay, 11/26/2025 03:40:00 PM, [address] [place], [address], Insurance Providers Payer Name Payer Address Payer Phone Subscriber Number Group Number Insured Name Patient Relationship to Insured Coverage Start Date Coverage End Date [place] Medicaid [address] [place] [address] [id number] Bobby, Braxton Self - patient is the insured Medical (General) History Medical History History ICD Code Cancer, Diabetes, High blood pressure, Surgical History Surgery Date(Month/Year) Finger surgery hernia Skin Cancer Removal Toe amputation
--- OUTSIDE RECORDS SUMMARY | 2025-10-01 23:52 | XMS_ITS | Clinical Summary ---
Author Organization [facility] Address [address] [place] [address] Care Team Providers Care Tube Coverer Name Role Phone Bernard Samson MD Primary Care Provider [phone] Allergies No known active allergies Medications metFORMIN [...] (#1) 2025 Medical Devices Implanted Type Area Thermodynamics Teacher Device Identifier Shelf Expiration Date Model / Serial / Lot Wire K Trocar Dbl .[id number] - [id number] Implanted:Qty: 1 on 05/18/2015 by Derik Sanford MD at [facility] Wire Left: Finger [employer] [facility] 01/01/2020 [id number] / / [id number] Wire K Trocar Dbl .[id number] - [id number] Implanted:Qty: 1 on 06/08/2015 by Derik Sanford MD at [facility] Wire Left: Finger [employer] [facility] [id number] / / LOAD# [id number] 24 Gauge Steel Wire Implanted:Qty: 1 on 06/08/2015 by Derik Sanford MD at [facility] Left: Finger / / LOAD# [id number] Description:272 item moved t o picklist for correct chg Additional Health Concerns Infection Onset Date Last Indicated MRSA Comment:Foot ulcer 05/2015 ([facility]) 06/08/2015 06/08/2015 Insurance Advance Directives For more information, please contact: [phone] * Full Code (Latest Code Status on File) Date Activated Date Inactivated Comments 06/08/2015 8:33 AM 06/08/2015 2:33 PM * Full Code Date Activated Date Inactivated Comments 05/18/2015 9:30 AM 05/18/2015 6:59 PM Care Teams Tube Coverer Relationship Specialty Start Date End Date Bernard Samson MD [address] [facility] [address] [place] [address] PCP - General Family Practice 06/02/15
[2025-10-01 23:53] VITALS: BP 180/76; PULSE 92; RESP 16; TEMP 36.8; O2SAT 96; BMI 36.6
--- OUTSIDE RECORDS SUMMARY | 2025-10-01 23:53 | XMS_ITS | Clinical Summary ---
Author Organization [facility] Address [address] [facility] [address] 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 Gender Identity Not on file Sexual Orientation [...] (#1) 2025 Medical Devices Implanted Type Area Heating Element Builder Device Identifier Shelf Expiration Date Model / Serial / Lot Wire K Trocar Dbl .[id number] - [id number] Implanted:Qty: 1 on 05/18/2015 by Derik Sanford MD Wire Left: Finger [employer] [facility] 01/01/2020 [id number] / / [id number] Wire K Trocar Dbl .[id number] - [id number] Implanted:Qty: 1 on 06/08/2015 by Derik Sanford MD Wire Left: F[id number] / / LOAD# [id number] 24 Gauge Steel Wire Implanted:Qty: 1 on 06/08/2015 by Derik Sanford MD Left: Finger / / LOAD# [id number] Description:272 item moved t o picklist for correct chg Additional Health Concerns Infection Onset Date Last Indicated MRSA Comment:Foot ulcer 05/2015 ([facility]) 06/08/2015 06/08/2015 Care Teams Artificial Limb Fitter Relationship Specialty Start Date End Date Bernard Samson MD [address] [id number] PCP - General Family Practice 06/02/15
--- NOTE | 2025-10-02 00:08 | XRR_ITS ---
PROCEDURE INFORMATION: Exam: XR Chest Exam date and time: 10/02/2025 12:17 AM Age: 55 years old Clinical indication: Injury or trauma; Fall; Bleeding/hemorrhage; Prior surgery; Surgery date: 3-7 days post-operative; Surgery type: Picc line placement/metatarsal amputation; Additional info: Fall, bleeding to picc site TECHNIQUE: Imaging protocol: Radiologic exam of the chest. Views: 1 view. COMPARISON: CR XR chest 1V portable [id number] 09/25/2025 3:01 PM FINDINGS: Tubes, catheters and devices: Left PICC line terminates in the SVC. Lungs: Unremarkable. No consolidation. Pleural spaces: Unremarkable. No pleural effusion. No pneumothorax. Heart/Mediastinum: Unremarkable. No cardiomegaly. Bones/joints: Unremarkable. XR/XR chest 1V portable [id number] IMPRESSION: Left PICC line terminates in the SVC.
--- NOTE | 2025-10-02 00:08 | XRR_ITS ---
PROCEDURE INFORMATION: Exam: XR Left Foot Exam date and time: 10/02/2025 12:25 AM Age: 55 years old Clinical indication: Injury or trauma; Fall; Bleeding/hemorrhage; Metatarsal; Left; Prior surgery; Surgery date: 3-7 days post-operative; Surgery type: Amputation; Additional info: Fall, recent amuptation, in cast but bleeding TECHNIQUE: Imaging protocol: Radiologic exam of the left foot. Views: 1 or 2 views. COMPARISON: CR (LOW EXM, ) 09/26/2025 9:36 AM FINDINGS: Bones/joints: Transmetatarsal amputation at the 4th and 5th metatarsals. Amputation of the 1st, 2nd, and 3rd rays. Severe soft tissue swelling of the stump with soft tissue air. The degree of areas improved when compared to 09/26/2025. Correlate for infection. Soft tissues: See Bones/joints finding. XR/XR foot LT 2V [id number] IMPRESSION: Transmetatarsal amputation at the 4th and 5th metatarsals. Amputation of the 1st, 2nd, and 3rd rays. Severe soft tissue swelling of the stump with soft tissue air. The degree of areas improved when compared to 09/26/2025. Correlate for infection.
--- NOTE | 2025-10-02 00:08 | XRR_ITS ---
PROCEDURE INFORMATION: Exam: XR Left Tibia and Fibula Exam date and time: 10/02/2025 12:19 AM Age: 55 years old Clinical indication: Injury or trauma; Fall; Bleeding/hemorrhage; Foot; Left; Prior surgery; Surgery date: 3-7 days post-operative; Surgery type: Amputation; Additional info: Fall, recent amuptation, in cast but bleeding TECHNIQUE: Imaging protocol: Radiologic exam of the left tibia and fibula. Views: 2 views. COMPARISON: CR (LOW EXM, ) 09/26/2025 9:36 AM FINDINGS: Tubes, catheters and devices: Overlying cast and lanny. Bones/joints: Transmetatarsal amputation. Soft tissue swelling and air in the stump, correlate for infection. Soft tissues: See Bones/joints finding. XR/XR tibia fibula LT 2V [id number] IMPRESSION: Transmetatarsal amputation. Soft tissue swelling and air in the stump, correlate for infection.
[2025-10-02] MEDS: oxyCODONE 5 mg IR Tab/Cap PO (00:18)
[2025-10-02 00:37] VITALS: BP 125/59; PULSE 80; O2SAT 92
--- NOTE | 2025-10-02 01:21 | W.ED.FALL ---
HPI - Fall General: Chief Complaint: Fall Stated Complaint: fall post surg. pic line bleeding. foot bleeding Time Seen by Provider: 10/01/25 23:54 History of Present Illness: Patient is a 55-year-old male with past medical history of diabetes, hypertension who presents after a fall earlier today while using a knee scooter at home, landing on his foot and arm. He reports significant bleeding from his foot, noting a large amount of blood on a pillow after elevating the limb. The patient recently underwent foot surgery last week by Dr. Cali, involving amputation of several bones due to chronic infection and recurrent sores. He has a cast in place, which was applied on Sunday, and has a history of multiple PICC lines. The surgical site has been oozing blood, and the patient is currently on antibiotics for a bone infection. He is scheduled to follow-up with his mixing pan tender tomorrow. He has mild foot pain and has had mild bleeding to his PICC line site. Associated symptoms-after fall: Denies abdominal pain, chest pain, headache(s) or neck pain Related Data Home Medications ?Medication ?Instructions ?Recorded ?Confirmed hydrocodone 10 mg-acetaminophen 1 tab PO Q6H PRN Pain 09/22/24 10/03/25 325 mg tablet insulin glargine 100 unit/mL (3 33 unit SUBCUT BEDTIME 08/17/25 10/03/25 mL) subcutaneous pen (Lantus Solostar U-100 Insulin) prednisolone acetate 1 % eye 1 drp ophthalmic (eye) QID 09/24/25 10/03/25 drops,suspension insulin lispro 100 unit/mL 20 unit SUBCUT TID PRN blood sugar 10/03/25 10/03/25 subcutaneous pen Previous Rx's ?Medication ?Instructions ?Recorded Toe Filler #1 ea 09/12/22 cam walker #1 ea 03/27/24 Diabetic Shoes with toe filler to #1 ea 10/28/24 left and right Blood Glucose Meter #1 ea 01/23/25 Blood Glucose Test Strips #100 ea 01/23/25 blood-glucose,astronomy professor,cont #1 ea 02/11/25 (Dexcom G7 Business Process Consultant) doxepin 100 mg capsule 200 mg (2 x 100 mg) PO BEDTIME #60 03/26/25 caps blood-glucose sensor (Dexcom G7 #9 ea 05/04/25 Sensor device) pen needle, diabetic 32 gauge x #100 ea 05/07/25 (TechLITE Pen Needle) metoprolol succinate 50 mg 50 mg PO BEDTIME #90 tabs 07/13/25 tablet,extended release 24 hr aspirin 81 mg tablet,delayed 81 mg PO DAILY #90 tabs 07/17/25 release lisinopril 40 mg tablet 40 mg PO DAILY #90 tabs 07/30/25 hydroxyzine HCl 50 mg tablet 50 mg PO QID PRN insomnia #120 tabs 08/20/25 fenofibrate nanocrystallized 145 145 mg PO DAILY #90 tabs 09/07/25 mg tablet daptomycin 1,000 mg/100 mL in 0.9 974 mg (97.4 mL) IV Q24H 32 days 09/28/25 % sodium chlor intravenous piggyback hydralazine 25 mg tablet 25 mg PO TID 90 days #270 tabs 09/28/25 dulaglutide 0.75 mg/0.5 mL 0.75 mg (0.5 mL) SUBCUT Q7D #2 mL 10/01/25 subcutaneous pen injector (Trulicity) Allergies Allergy/AdvReac Type Severity Reaction Status Date / Time No Known Allergies Allergy Verified 10/02/25 14:34 Review of Systems General: Reports: 10 or more systems reviewed and unremarkable except in HPI and below Const: Denies: fever(s) or chills Eyes: Denies: change in vision or eye discharge Card: Denies: chest pain, palpitations or swelling of feet/ankles Resp: Denies: dyspnea or productive cough GI: Denies: abdominal pain or diarrhea : Denies: difficulty urinating Musc: Denies: neck pain or back pain Skin/Breast: Denies: rash or jaundice Neuro: Denies: headache(s), numbness in extremities or weakness in extremities North/Lymph: Denies: easy bruising or easy bleeding PFSH ED PFSH: Medical History (Updated 10/02/25 @ 14:51 by Ernesto Cali DPM) Cellulitis of right foot Psychiatric care History of nonmelanoma skin cancer History of malignant melanoma Chronic pain in right foot Diabetes mellitus with polyneuropathy Cellulitis and abscess of right lower extremity Non-pressure chronic ulcer of other part of right foot with necrosis of bone Dyslipidemia Acute renal failure Cellulitis of leg, right Hallux rigidus, right foot Sleep apnea in adult Restless leg syndrome Dyslipidemia Encounter for long-term use of opiate analgesic Shoulder pain Diverticulosis Type 2 diabetes mellitus with other diabetic neurological complication Essential (primary) hypertension CHF (congestive heart failure) Amputated great toe Wound dehiscence, surgical Surgical History History of amputation of right great toe History of amputation of left great toe History of colonoscopy 2018 History of inguinal hernia repair, bilateral 1970,1977 History of ankle surgery Hx of amputation of lesser toe Left foot big toe and second toe 01/21/20 [facility] Dr. Leal Status post PICC central line placement H/O hernia repair History of amputation of lesser toe of right foot Family History Mother Cancer Other Dyslipidemia Denies family history of Diabetes CAD (coronary artery disease) Clotting disorder Dementia Hyperlipidemia Psychiatric illness Chronic kidney disease (CKD) Suicide Anesthesia complication Bleeding disorder Family history of premature coronary artery disease Lung disease Hypertension Stroke Social History Smoking and tobacco/nicotine status: never used tobacco/nicotine Second hand smoke exposure: Yes Alcohol intake: current Alcohol intake frequency: holidays/special occasions only Substance/Drug Use: former Date of last use: 2012 Former substance use details: Previously used meth and weed Additional social history: Patient wants full code as discussed with Jewel Prasad MD on 09/23/2025 patient is retired or disabled from [employer] working in [employer]. Jacobo his cousin lives with him and Awa Glaser who lives in [place] is his next of kin if he is unable to make decisions. Patient states he was in the [employer] Adopted: No Caregiver/support person: No Lives independently: Yes Household members: none Housing: House Marital status: Single Number of children: 0 Number of grandchildren: 0 Highest education level completed: High School Graduate service: Yes status: Discharged status details: discharged with cause branch: [employer] 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 Left lower extremity Juan wrapped and in cast that is soaked with blood, seemingly neurovascularly intact, intact knee and hip joint with no pain or chart skin changes. PICC line in place to the left upper extremity with mild blood superficially under dressing, no pain to palpation, no swelling. GCS 15, breathing comfortably on room air, abdomen soft, nontender and nondistended Course Vital Signs: Vital signs: Vital Signs Temperature 98.2 F 10/01/25 23:53 Pulse Rate 75 10/02/25 02:03 Respiratory Rate 16 10/01/25 23:53 Blood Pressure 125/59 10/02/25 00:37 Pulse Oximetry 94 10/02/25 02:03 Oxygen Delivery Me thod Room Air 10/01/25 23:53 MDM - Fall Medical Decision Making -ddx: Tarsal fracture, dislocation, as postsurgical bleeding, superficial skin injury, PICC line dislodgment, mechanical fall - Patient was sounding mechanical fall from his scooter, will image his left lower extremity with a moderate amount of bleeding from the site and get confirmation for his PICC line, start with oxycodone and reassess. - X-ray showed good positioning of his PICC line, no fractures, dislocations of his foot, did see some soft tissue gas which would be expected with his recent surgery. Was then obtained and his cast was cut off, Juan was removed and there was a moderate amount of bleeding, but was all venous oozing, around the surgical site actually had formed a large blood clot which was not removed because it was seemingly tamponading any bleeding underneath, with patient well-controlled, repeat MSK exam reassuring, he was discharged after wound was rewrapped to follow-up with his surgeon later today, strict return precautions given. Lab Data Radiology Impressions Chest X-Ray 10/02/25 00:08 IMPRESSION: Left PICC line terminates in the SVC. Foot X-Ray 10/02/25 00:08 IMPRESSION: Transmetatarsal amputation at the 4th and 5th metatarsals. Amputation of the 1st, 2nd, and 3rd rays. Severe soft tissue swelling of the stump with soft tissue air. The degree of areas improved when compared to 09/26/2025. Correlate for infection. Tibia/Fibula X-Ray 10/02/25 00:08 IMPRESSION: Transmetatarsal amputation. Soft tissue swelling and air in the stump, correlate for infection. All radiology interpretation(s) finalized by discharge Discharge Plan Discharge Patient Disposition: Home Clinical Impression: Fall, Bleeding from surgical wound Condition: Stable Prescriptions: No Action (DME) Toe Filler See Rx Instructions .Route .MEDSUPPLY Qty: 1 0RF Rx Instructions: As directed by Gareth [employer] Patricio (DME) joel bolaños See Rx Instructions .Route .MEDSUPPLY Qty: 1 0RF Rx Instructions: As directed (DME) Diabetic Shoes with toe filler to left and right See Rx Instructions .Route .MEDSUPPLY Qty: 1 0RF Rx Instructions: Diabetic shoes made by the shoe [employer] doxepin 100 mg capsule 200 mg PO BEDTIME Qty: 60 11RF (DME) Dexcom G7 Business Process Consultant Misc See Rx Instructions .ROUTE .MEDSUPPLY Qty: 1 0RF Rx Instructions: As directed hydroxyzine HCl 50 mg tablet 50 mg PO QID PRN (Reason: insomnia) Qty: 120 11RF (DME) Blood Glucose Meter See Rx Instructions .Route .MEDSUPPLY Qty: 1 1RF Rx Instructions: 3 times daily (DME) Blood Glucose Test Strips See Rx Instructions .Route .MEDSUPPLY Qty: 100 3RF Rx Instructions: 3 times daily (DME) Dexcom G7 Sensor Device See Rx Instructions .ROUTE .COMPLEX Qty: 9 1RF Dose Instruction: CHANGE EVERY 10 DAYS Rx Instructions: CHANGE EVERY 10 DAYS (DME) pen needle, diabetic [TechLITE Pen Needle] 32 gauge x 5/32 needle See Rx Instructions .ROUTE .COMPLEX Qty: 100 3RF Dose Instruction: FOR USE WITH INSULIN UP TO 5 TIMES DAILY Rx Instructions: FOR USE WITH INSULIN UP TO 5 TIMES DAILY metoprolol succinate 50 mg tablet extended release 24 hr 50 mg PO BEDTIME Qty: 90 0RF aspirin 81 mg tablet,delayed release (DR/EC) 81 mg PO DAILY Qty: 90 1RF lisinopril 40 mg tablet 40 mg PO DAILY Qty: 90 2RF fenofibrate nanocrystallized 145 mg tablet 145 mg PO DAILY Qty: 90 0RF Trulicity 0.75 mg/0.5 mL pen injector 0.75 mg SUBCUT Q7D Qty: 2 0RF insulin glargine [Lantus Solostar U-100 Insulin] 100 unit/mL (3 mL) insulin pen 33 unit SUBCUT BEDTIME Patient Comments: hydrocodone-acetaminophen 10-325 mg tablet 1 tab PO Q6H PRN (Reason: Pain) prednisolone acetate 1 % drops,suspension 1 drp ophthalmic (eye) QID hydralazine 25 mg Tablet 25 mg PO TID 90 Days Qty: 270 0RF daptomycin in 0.9 % sod chlor 1,000 mg/100 mL piggyback 974 mg IV Q24H 32 Days Rx Instructions: administer over 30 mins insulin lispro 100 unit/mL insulin pen 20 unit SUBCUT TID PRN (Reason: blood sugar ) Rx Instructions: INJECT 20 UNITS SUBCUTANEOUSLY THREE TIMES DAILY PER SLIDING SCALE. Discharge Orders: Discharge ED (Routine); Ordered 10/02/25 Ordered By: Say Ghosh Referrals: Ernesto Cali DPM [Physician, Podiatry] - 1-3 days Discharge Diet: Usual diet Discharge Activity: Increase activity as tolerated Patient Instructions: Opioid Safety, Pain Management, Patient Portal & Devon Instructions Activity Restrictions/Additional Instructions: You were seen after your fall, you were evaluated with x-rays which found no fracture, dislocation or concerns for internal bleeding at this time. Your PICC line is in good positioning. Your left foot amputation was redressed and you are deemed stable to be discharged home. Continue to follow-up with the mixing pan tender tomorrow as originally planned for reevaluation of your wound. Return to the ED with severe bleeding at the site, severe numbness or weakness in that leg, recurrent falls, episodes of passing out, any other emergent concerns. Print Language: Icelandic Coding Level of Care Code ED Assembler Metal Furniture for Davina Whelan
[2025-10-02 02:03] VITALS: PULSE 75; O2SAT 94
== END 2025-10-02 02:32 | disposition home or self-care (01) ==
PROVIDERS: Emergency Provider Student in an Organized Health Care Education/Training Program; PCP Family Medicine
DX: Z89.431 Acquired absence of right foot (principal); Z89.422 Acquired absence of other left toe(s); L76.22 Postprocedural hemorrhage of skin and subcutaneous tissue following other procedure; Z79.4 Long term (current) use of insulin; Z79.85 Long-term (current) use of injectable non-insulin antidiabetic drugs; Z79.82 Long term (current) use of aspirin; E78.5 Hyperlipidemia, unspecified; Z85.820 Personal history of malignant melanoma of skin; Z85.828 Personal history of other malignant neoplasm of skin; I11.0 Hypertensive heart disease with heart failure; I50.9 Heart failure, unspecified; E11.9 Type 2 diabetes mellitus without complications; Z98.890 Other specified postprocedural states
CPT/HCPCS: 71045; 73590; 73620; 99284; J9999

== ENCOUNTER → 2025-10-02 13:18 | Outpatient (BNVA) | payer MEDICAID, SELFPAY ==
[2025-10-01 16:13] VITALS: BP 137/47; BMI 38.5
== END ==
PROVIDERS: PCP Family Medicine; Visit Provider Podiatrist Foot & Ankle Surgery
DX: E11.49 Type 2 diabetes mellitus with other diabetic neurological complication (principal); L03.116 Cellulitis of left lower limb; Z91.81 History of falling; S91.302A Unspecified open wound, left foot, initial encounter; X58.XXXA Exposure to other specified factors, initial encounter; Z79.4 Long term (current) use of insulin
CPT/HCPCS: 99214

== ENCOUNTER 2025-10-02 15:41 | Inpatient (IN) | payer MEDICAID, SELFPAY ==
--- OUTSIDE RECORDS SUMMARY | 2024-08-10 03:00 | XMS_ITS ---
Author Organization [facility] Address [address] [place] [address] Care Team Providers Care Video Games Storywriter Name Role Phone Deloris NICHOLS, Tito Primary Care Provider Unavailab Lucina Zhong Unavailable [phone] Migration, Provider Unavailable Unavailable REASON FOR VISIT EMR-Trent Medications Medication SIG (Take, Route, Frequency, Duration) Notes Start Date End Date Status furosemide 20mg daily *Reorder f rom [facility] for eRx and Interaction Alerts* Active Victoza 2-Bjorn 1.8mg daily *Reorder from [facility] for eRx and Interaction Alerts* Active Adult Low Dose Aspirin 81mg daily *Reorder from [facility] for eRx and Interaction Alerts* Active sildenafil 1tab as directed *Reorder from [facility] for eRx and Interaction Alerts* Active Levemir FlexTouch U100 Insulin 42 units daily *Reorder from [facility] for eRx and Interaction Alerts* Active ropinirole [...] Next Appt Details Provider Name:Lucina Mauricio hay, 11/26/2025 03:40:00 PM, [address] [place], [address], Progress Notes * Braxton HOSKINS GDOB: [birth year] (55 yo M)Acc No.[id number]:08/10/2024 Patient: Braxton BADILLO Nely :1970 A ge:54 Y S ex:Male Address:[address] [place] [address], [address] Subjective: * Chief Complaints: * E MR-Trent [...] daily , Notes to Pharmacist: *Reorder from [facility] for eRx and Interaction Alerts*metoprolol succinate 50mg daily , Notes to Pharmacist: *Reorder from [facility] for eRx and Interaction Alerts*Adult Low Dose Aspirin 81mg daily , Notes to Pharmacist: *Reorder from [facility] for eRx and Interaction Alerts*sildenafil 1tab as directed , Notes to Pharmacist: *Reorder from [facility] for eRx and Interaction Alerts*potassium chloride 30meq every 3 days , Notes to Pharmacist: *Reorder from [facility] for eRx and Interaction Alerts*nortriptyline 100mg at bedtime , Notes to Pharmacist: *Reorder from [facility] for eRx and Interaction Alerts*Levemir FlexTouch U100 Insulin 42 units daily , Notes to Pharmacist: *Reorder from [facility] for eRx and Interaction Alerts*Victoza 2-Bjorn 1.8mg daily , Notes to Pharmacist: *Reorder from [facility] for eRx and Interaction Alerts*pantoprazole 40mg daily , Notes to Pharmacist: *Reorder from [facility] for eRx and Interaction Alerts*rosuvastatin 1tab at bedtime , Notes to Pharmacist: *Reorder from [facility] for eRx and Interaction Alerts*lisinopril 40mg daily , Notes to Pharmacist: *Reorder from [facility] for eRx and Interaction Alerts*Taking ropinirole 1mg daily , Notes to Pharmacist: *Reorder from [facility] for eRx and Interaction Alerts*Taking Novolog Flexpen U-100 Insulin 20units TID , Notes to Pharmacist: *Reorder from [facility] for eRx and Interaction Alerts*Taking furosemide 20mg daily , Notes to Pharmacist: *Reorder from [facility] for eRx and Interaction Alerts*Taking metoprolol succinate 50mg daily , Notes to Pharmacist: *Reorder from [facility] for eRx and Interaction Alerts*Taking Adult Low Dose Aspirin 81mg daily , Notes to Pharmacist: *Reorder from [facility] for eRx and Interaction Alerts*Taking sildenafil 1tab as directed , Notes to Pharmacist: *Reorder from [facility] for eRx and Interaction Alerts*Taking potassium chloride 30meq every 3 days , Notes to Pharmacist: *Reorder from [facility] for eRx and Interaction Alerts*Taking nortriptyline 100mg at bedtime , Notes to Pharmacist: *[facility]*Taking Levemir FlexTouch U100 Insulin 42 units daily , Notes to Pharmacist: *[facility] for [facility]Rx and Interaction Alerts*Taking Victoza 2-Bjorn 1.8mg daily , Notes to Pharmacist: *[facility] for [facility]Rx and Interaction Alerts*Taking pantoprazole 40mg daily , Notes to Pharmacist: *Reorder from [facility] for eRx and Interaction Alerts*Taking rosuvastatin 1tab at bedtime , Notes to Pharmacist: *[facility] for [facility] and Interaction Alerts*Taking lisinopril 40mg daily , Notes to Pharmacist: *Reorder from [facility] for eRx and Interaction Alerts* * * Date:
--- OUTSIDE RECORDS SUMMARY | 2025-10-01 03:20 | XMS_ITS ---
Author Organization [facility] Address [address] [place] [address] Care Team Providers Care Wellness Consultant Name Role Phone Deloris NICHOLS, Tito Primary Care Provider Lucina Olvera [phone] Results Component Value Reference Range Notes Urine Drug Screen (cup read) - 30792 Reviewed date:10/01/2025 10:09:52 AM Interpretation: Performing Lab: Notes/Report: OPI Pos REASON FOR VISIT 2 month f/u Medications Medication SIG (Take, Route, Frequency, Duration) Notes Start Date End Date Status nortriptyline 100mg at bedtime *Reorder from [facility] [...] Low Dose Aspirin 81mg daily *Reorder from [facility] for eRx and [...] 30 days from previous Rx 06/01/2025 Active sildenafil 1tab as directed *Reorder from [...] if ever smoked, Working currently? 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 He continues with multiple joint pain, diabetic neuropathy, as well as pain from nonhealing wounds and infected wounds on his foot. He recently was in the hospital due to the infection and ended up having another surgery where they have removed more bone. He is in a cast today and on crutches and states he has a follow-up tomorrow. He denies any other changes since we last seen him or any untoward side effects of the medication. He does feel his medication is helping him some so we will continue that at present level. I did discuss lifestyle modifications as well [...] effects are noted. Last UDS and [place] ALARM FIELD TECHNICIAN reviewed today. Patient is advised that best [...] to abide by our urine testing policy. 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 He continues with multiple joint pain, diabetic neuropathy, as well as pain from nonhealing wounds and infected wounds on his foot. He recently was in the hospital due to the infection and ended up having another surgery where they have removed more bone. He is in a cast today and on crutches and states he has a follow-up tomorrow. He denies any other changes since we last seen him or any untoward side effects of the medication. He does feel his medication is helping him some so we will continue that at present level. I did discuss lifestyle modifications as well [...] effects are noted. Last UDS and [place] ALARM FIELD TECHNICIAN reviewed today. Patient is advised that best [...] to abide by our urine testing policy. Pending Test Test Name Order Date Urine Confirmation Panel (instrument) - [id number] 10/01/2025 Next Appt Details Follow Up: 2 Months, Reason: Provider Name:Lucina Martínez Coreydonis satnam, 11/26/2025 03:40:00 PM, [address] [place], [address], History and Physical Notes * HPI (History of Present Illness) Category Sub-Category Detail Notes Category Not es Pain Details Pain Location Left Leg Quality Sharp/Stabbing,Pins/ Primghar,Throbbing,Burn/Tingle Severity of pain at its worst 4 Severity of pain at its best 4 Severity of average pain 4 Severity of pain right now 4 Severity of pain on medication 4 When did you last take your pain medicine Mahogany 18 3Am Medication Details Do you have a lock b ox or safe place for medication away from minors and/or others? Yes Do you have any leftover pain medication building up at your house? No Do you understand that pain medication c an be addicting and can cause overdose? Yes Do you feel you can REDUCE the amount of medication you take today? No Opioid Assessment Tools Pill Count 30 Last Urine Drug Screen 06/01/25 Conf Today's Rapid Urine Drug Screen None tod ay [place] Prescription Monitoring Program found to be consistent with treatment history, reviewed today Treatment History Test undergone in the past None Ipma Past medication you have taken Meloxicam 15mg #30-Hydrocodone 10/325 #120 Treatments you have had None IPMA Examination Category Sub-Category Detail Notes Category Not es General Examination General patient is w ell developed, well-nourished, alert and oriented, has good hygiene ENT oral mucosa moist an d pink Eyes pupils are equal, ro und and reactive to light, sclera/conjuctiva normal Respiratory breath sounds are eq ual bilaterally, there is no wheezing Musculoskeletal - Low Back Muscles Trigger Point s no palpable trigger points are noted Gaenslen's Test Negative Neurological Mental Status awake, oriented to person, oriented to place, oriented to time, memory intact, mood and affect are normal Coordination Gait crutches Progress Notes * Braxton HOSKINS GDOB: [birth year] (55 yo M)Acc No.[id number]:10/01/2025 Progress Notes Patient: Braxton Benites Provider: CLAY Rothman :1970 A ge:55 Y S ex:Male Date:10/01/2025 Address:[facility] [place] [address] Pcp:Tito Puentes MD Check In:09:03 AM CAUL PULLER Subjective: * Chief Complaints: * 2 month f/u * HPI: P ain Details: Pain Location L eft Leg. Quality S harp/Stabbing,Pins/Primghar,Throbbing,Burn/Tingle.? Severity of pain at its worst 4 . Severity of pain at its best 4 . Severity of pain on medication 4 . Severity of average pain 4 . Severity of pain right now 4 . When did you last take your pain medicine T 18 3Am.? M edication Details: Do you have a lock box or safe place for medication away from minors and/or others? Y es. Do you have any leftover pain medication building up at your house? N o. Do you understand that pain medication can be addicting and can cause overdose? Y es. Do you feel you can REDUCE the amount of medication you take today? N o. O pioid Assessment Tools: Pill Count 3 0. Last Urine Drug Screen Conf. Today's Rapid Urine Drug Screen N one today. [place] Prescription Monitoring Program f ound to be consistent with treatment history, reviewed today. T reatment History: Test undergone in the past None Ipma. Past medication you have taken Meloxicam 15mg #30- Hydrocodone 10/325 #120. Treatments you have had N one IPMA. Ya rojas Note: Patient presents today for 2-month follow-up. He continues with multisite pain but does feel with this medicine he is able to function better overall. He is currently prescribed meloxicam 15 mg daily and hydrocodone 10/325 4/day which is working reasonably well. Pill count is accurate today. Last UDS is consistent. UDS [id number] today is consistent. We will send to lab for reference and review results with patient at next visit. PDMP was reviewed and found to be compliant with care. * ROS: G eneral/Constitutional: Fatigue/Tiredness R eports, Y es. F ever R eports, Y es. R ecent weight gain R eports, N o. R ecent weight loss D enies,?Yes. R espiratory: Cough D enies, N o. W heezing D enies, Y es. S hortness of breath D enies, N o. G astrointestinal: Abdominal pain D enies, N o. C onstipation R eports, Y es. N ausea D enies, Y es. V omiting D enies, N o. ? P sychiatric: Anxiety D enies, Y es. D epression D enies,?Yes. S uicidal thoughts D enies, N o. P anic Attacks D enies, N o. ? * Screening: * COMM - Current Opioid Misuse Measure: D ocumented By: Pilar Sainz core: 2?Interpretation: Score indicates low risk of abuse behaviors C OMM - Current Opioid Misuse Measure How often have you had trouble with thinking clearly or had memory problems?NeverHow often do people complain that you are not completing necessary tasks? (i.e., doing things that need to be done, such as going to class, work or appointments)NeverHow often have you had to go to someone other than your prescribing physician to get sufficient pain relief from medications? (i.e., another doctor, the Emergency Room, friends, street sources)NeverHow often have you taken your medications differently from how they are prescribed?NeverHow often have you seriously thought about hurting yourself?NeverHow much of your time was spent thinking about opioid medications (having enough, taking them, dosing schedule, etc.)?NeverHow often have you been in an argument?NeverHow often have you had trouble controlling your anger (e.g., road rage, screaming, etc.)?NeverHow often have you needed to take pain medications belonging to someone else?NeverHow often have you been worried about how you're handling your medications?NeverHow often have others been worried about how you're handling your medications?NeverHow often have you had to make an emergency phone call or show up at the clinic without an appointment?NeverHow often have you gotten angry with people?SeldomHow often have you had to take more of your medication than prescribed?NeverHow often have you borrowed pain medication from someone else?NeverHow often have you used your pain medicine for symptoms other than for pain (e.g., to help you sleep, improve your mood, or relieve stress)?NeverHow often have you had to visit the Emergency Room?Seldom * Medical History: Cancer, Diabetes, High blood pressure, Medical History Verified * Surgical History: Finger surgery hernia Skin Cancer Removal Toe amputation Surgical History verified. * Family History: M igrated Family History: : Cancer. F amily History Verified.. * Social History: M igrated Social History: [...] ever smoked, W orking currently? - No. S ocial History Verified. * Medications: T akingAdult Low Dose Aspirin 81mg daily , Notes to Pharmacist: *Reorder from [facility] for eRx and Interaction Alerts*furosemide 20mg daily , Notes to Pharmacist: *Reorder from [facility] for eRx and Interaction Alerts*HYDROcodone-Acetaminophen 10-325 MG Tablet 1 tablet Orally every 6 hrs As needed Not to exceed 4 per day, stop date 10/03/2025, Notes to Pharmacist: Fill on 09/03/2025Levemir FlexTouch U100 Insulin 42 units daily , Notes to Pharmacist: *Reorder from [facility] for eRx and Interaction Alerts*lisinopril 40mg daily , Notes to Pharmacist: *Reorder from [facility] for eRx and Interaction Alerts*Meloxicam 15 MG Tablet 1 tablet as needed Orally Once a day , Notes to Pharmacist: Fill 30 days from previous Rxmetoprolol succinate 50mg daily , Notes to Pharmacist: *[facility] from [facility] for [facility]Rx and Interaction Alerts*nortriptyline 100mg at bedtime , Notes to Pharmacist: *Reorder from [facility] for eRx and Interaction Alerts*Novolog Flexpen U-100 Insulin 20units TID , Notes to Pharmacist: *Reorder from [facility] for eRx and Interaction Alerts*pantoprazole 40mg daily , Notes to Pharmacist: *Reorder from [facility] for eRx and Interaction Alerts*potassium chloride 30meq every 3 days , Notes to Pharmacist: *Reorder from [facility] for eRx and Interaction Alerts*ropinirole 1mg daily , Notes to Pharmacist: *Reorder from [facility] for eRx and Interaction Alerts*rosuvastatin 1tab at bedtime , Notes to Pharmacist: *Reorder from [facility] for eRx and Interaction Alerts*sildenafil 1tab as directed , Notes to Pharmacist: *Reorder from [facility] for eRx and Interaction Alerts*Victoza 2-Bjorn 1.8mg daily , Notes to Pharmacist: *Reorder from [facility] for eRx and Interaction Alerts*Medication List reviewed and reconciled with the patientTaking Adult Low Dose Aspirin 81mg daily , Notes to Pharmacist: *Reorder from [facility] for eRx and Interaction Alerts*Taking furosemide 20mg daily , Notes to Pharmacist: *Reorder from [facility] for eRx and Interaction Alerts*Taking HYDROcodone-Acetaminophen 10-325 MG Tablet 1 tablet Orally every 6 hrs As needed Not to exceed 4 per day, stop date 10/03/2025, Notes to Pharmacist: Fill on 09/03/2025Taking Levemir FlexTouch U100 Insulin 42 units daily , Notes to Pharmacist: *Reorder from [facility] for eRx and Interaction Alerts*Taking lisinopril 40mg daily , Notes to Pharmacist: *Reorder from [facility] for eRx and Interaction Alerts*Taking Meloxicam 15 MG Tablet 1 tablet as needed Orally Once a day , Notes to Pharmacist: Fill 30 days from previous RxTaking metoprolol succinate 50mg daily , Notes to Pharmacist: *Reorder from [facility] for eRx and Interaction Alerts*Taking nortriptyline 100mg at bedtime , Notes to Pharmacist: *Reorder from [facility] for eRx and Interaction Alerts*Taking Novolog Flexpen U-100 Insulin 20units TID , Notes to Pharmacist: *Reorder from [facility] for eRx and Interaction Alerts*Taking pantoprazole 40mg daily , Notes to Pharmacist: *Reorder from [facility] for eRx and Interaction Alerts*Taking potassium chloride 30meq every 3 days , Notes to Pharmacist: *Reorder from [facility] for eRx and Interaction Alerts*Taking ropinirole 1mg daily , Notes to Pharmacist: *Reorder from [facility] for eRx and Interaction Alerts*Taking rosuvastatin 1tab at bedtime , Notes to Pharmacist: *Reorder from [facility] for eRx and Interaction Alerts*Taking sildenafil 1tab as directed , Notes to Pharmacist: *Reorder from [facility] for eRx and Interaction Alerts*Taking Victoza 2-Bjorn 1.8mg daily , Notes to Pharmacist: *Reorder from [facility] for eRx and Interaction Alerts*Medication List reviewed and reconciled with the patient * Allergies: y esAllergies Verified. Objective: * Vitals: H t: 70.00 in, Wt:255lbs, Wt-k.67 kg, BMI:36.58Index, Ht-cm: 177.8 cm. * P ast Orders: Lab:Tox Results * Collection Date 06/01/2025 03/26/2025 12/05/2024 Order Date 06/01/2025 03/26/2025 12/05/2024 * Examination: G eneral Examination: General p atient is well developed, well-nourished, alert and oriented, has good hygiene. ENT o ral mucosa moist and pink. Eyes p upils are equal, round and reactive to light, sclera/conjuctiva normal. Respiratory b reath sounds are equal bilaterally, there is no wheezing. M usculoskeletal - Low Back Muscles: Trigger Points n o palpable trigger points are noted. Gaenslen's Test N egative. N eurological: Mental Status a wake, oriented to person, oriented to place, oriented to time, memory intact, mood and affect are normal. C oordination: Gait c rutches. Assessment: * Assessment: 1. C hronic pain syndrome - G89.4 (Primary) 2 . T ype 2 diabetes mellitus with diabetic polyneuropathy - E11.42 3 . O ther specific arthropathies, not elsewhere classified, right shoulder - M12.811 4 . L ray term (current) use of opiate analgesic - Z79.891 5 . O ther specific arthropathies, not elsewhere classified, left shoulder - M12.812 6 . U nspecified abnormalities of gait and mobility - R26.9 Plan: * Treatment: 2. L ray term (current) use of opiate analgesic L AB: Urine Drug Screen (cup read) - 56077 (Collection Date & Time - 10/01/2025) Value Reference Range O PI Pos ?LAB: Urine Confirmation Panel (instrument) - [id number] (Collection Date & Time - 10/01/2025) * Procedure Codes: 8 0305 DRUG TEST PRSMV DIR OPT OBS RA81965 DRUG TEST PRSMV CHEM ANLYZR * Follow Up: 2 Months Billing Information: * Procedure Codes: 53918 DRUG TEST PRSMV DIR OPT OBS IH. 63535 DRUG TEST PRSMV CHEM ANLYZR. Care Plan Details* * Electronic signature of Rosangela Hughes APRN on 10/03/2025 at 08:14 AM CAUL PULLER Sign off status: Pending * Provider: CLAY Rothman Date: 12/02/2024 Generated for Abdi ramos/Artemio/Gopal on: 12/04/2024 08:14 AM CAUL PULLER
--- OUTSIDE RECORDS SUMMARY | 2025-10-01 04:57 | XMS_ITS ---
Author Organization [facility] Address [address] [place] [address] Care Team Providers Care Medical Records Administrator Name Role Phone Deloris NICHOLS, Tito Primary Care Provider Unavailab Lucina Zhong Unavailable [phone] Tito Santiago Unavailable [phone] REASON FOR VISIT WP-MO ERx Medications Medication [...] Active Encounters Encounter Location Date Provider Diagnosis [facility] [place] [address] [place] [address] 10/01/2025 Tito Santiago Other specific arthropathies, not [...] Mauricio hay, 11/26/2025 03:40:00 PM, [address] [place], [address], Progress Notes * Braxton HOSKINS GDOB: [birth year] (55 yo M)Acc No.[id number]:10/01/2025 Patient: Sue Braxton KINSEY Nely :1970 A ge:55 Y S ex:Male Address:[address] [place] [address], [address] * Refills Continue HYDROcodone-Acetaminophen Tablet, 10-325 MG, [...] * Date: Generated for Abdi ramos/Artemio/Gopal on: 12/04/2024 08:14 AM TREE 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
[2025-10-01 16:13] VITALS: BP 137/47; BMI 38.5
--- OUTSIDE RECORDS SUMMARY | 2025-10-02 15:46 | XMS_ITS | Clinical Summary ---
Author Organization [facility] Address [address] 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 Gender Identity Not on file Sexual Orientation [...] (#1) 2025 Medical Devices Implanted Type Area Standpipe Tender Device Identifier Shelf Expiration Date Model / Serial / Lot Wire K Trocar Dbl .[id number] - [id number] Implanted:Qty: 1 on 05/18/2015 by Derik Sanford MD Wire Left: Finger [employer] [facility] 01/01/2020 [id number] / / [id number] Wire K Trocar Dbl .[id number] - [id number] Implanted:Qty: 1 on 06/08/2015 by Derik Sanford MD Wire Left: Finger [id number] / / LOAD# [id number] 24 Gauge Steel Wire Implanted:Qty: 1 on 06/08/2015 by Derik Sanford MD Left: Finger / / LOAD# [id number] Description:272 item moved t o picklist for correct chg Additional Health Concerns Infection Onset Date Last Indicated MRSA Comment:Foot ulcer 05/2015 ([facility]) 06/08/2015 06/08/2015 Care Teams Branch Operations Specialist Relationship Specialty Start Date End Date Bernard Samson MD [address] [id number] PCP - General Family Practice 06/02/15
--- OUTSIDE RECORDS SUMMARY | 2025-10-02 15:46 | XMS_ITS | Clinical Summary ---
Author Organization [facility] Address [address] [place] [address] Care Team Providers Care Biodiesel Processing Technician Name Role Phone Bernard Samson MD Primary Care Provider [phone] Allergies No known active allergies Medications metFORMIN [...] (#1) 2025 Medical Devices Implanted Type Area Domestic Violence Advocate Device Identifier Shelf Expiration Date Model / Serial / Lot Wire K Trocar Dbl .[id number] - [id number] Implanted:Qty: 1 on 05/18/2015 by Derik Sanford MD at [facility] Wire Left: Finger [employer] [facility] 01/01/2020 [id number] / / [id number] Wire K Trocar Dbl .[id number] - [id number] Implanted:Qty: 1 on 06/08/2015 by Derik Sanford MD at [facility] Wire Left: Finger [employer] [facility] [id number] / / LOAD# [id number] 24 Gauge Steel Wire Implanted:Qty: 1 on 06/08/2015 by Derik Sanford MD at [facility] Left: Finger / / LOAD# [id number] Description:272 item moved t o picklist for correct chg Additional Health Concerns Infection Onset Date Last Indicated MRSA Comment:Foot ulcer 05/2015 ([facility]) 06/08/2015 06/08/2015 Insurance Advance Directives For more information, please contact: [phone] * Full Code (Latest Code Status on File) Date Activated Date Inactivated Comments 06/08/2015 8:33 AM 06/08/2015 2:33 PM * Full Code Date Activated Date Inactivated Comments 05/18/2015 9:30 AM 05/18/2015 6:59 PM Care Teams Biodiesel Processing Technician Relationship Specialty Start Date End Date Bernard Samson MD [address] [facility] [address] [place] [address] PCP - General Family Practice 06/02/15
[2025-10-02 16:03] VITALS: BMI 36.8
--- NOTE | 2025-10-02 16:51 | XRR_ITS ---
PROCEDURE INFORMATION: Exam: XR Chest Exam date and time: 10/02/2025 5:25 PM Age: 55 years old Clinical indication: Pre-operative exam; Cardiovascular screening and respiratory screening exam; Additional info: Pre-op TECHNIQUE: Imaging protocol: Radiologic exam of the chest. Views: 1 view. COMPARISON: CR (CHEST, ) 10/02/2025 12:17 AM FINDINGS: Tubes, catheters and devices: Left PICC line catheter tip projects near the atrial caval junction. Surgical clips noted in the right neck. Lungs: Unremarkable. No consolidation. Pleural spaces: Unremarkable. No pleural effusion. No pneumothorax. Heart/Mediastinum: Unremarkable. No cardiomegaly. Bones/joints: Unremarkable. XR/XR chest 1V portable [id number] IMPRESSION: No acute cardiopulmonary abnormality.
[2025-10-02 16:52] VITALS: BP 175/78; PULSE 66; RESP 16; TEMP 36.8; O2SAT 94
--- NOTE | 2025-10-02 16:58 | P.HP_ITS ---
<Statement entered by Nitish Alvarado MD - 10/02/25 21:13> I will send disc Providers/Chief Complaint Admitting Physician: Nitish Alvarado Primary Care Provider: Tito Puentes MD Chief Complaint: Wound Dehiscense IV antibiotics History of Present Illness Braxton Rosales is a 55 year old male diabetes mellitus type 2, diabetic neuropathy, chronic kidney disease stage III, recurrent diabetic foot ulcers with bilateral toe amputations of all digits on both feet. Patient recently underwent partial Lisfranc capitation of left foot with findings of osteomyelitis of left first, second and third metatarsal with Phlebotomist Associate 09/25/25 and continued IV antibiotics with management per because osteomyelitis of proximal extension could not be ruled out. Patient has been on Daptomcin 8mg/kg every 24hr with EOT on 10/29/25. However, patient returned to 's office today stating that he has not been compliant with his strict non-weight bearing status at home because he cares for himself and can't take care of himself without putting weight on his left foot. Patient states he has lost his balance and fallen 3 times since discharging home, this last fall causing his left foot to bleed and PICC line to bleed. CXR today confirms left PICC line catheter tip projects near the atrial caval junction. Per 's note patient's home is not wheelchair accessible and he lives up 2 flight of stairs. Patient is admitted with dehiscence of left foot surgical site, will need to return to the OR tomorrow morning, worsening cellulitis even in the presence of IV antibiotic therapy, and evaluation for long term placement. Patient endorses intermittent diarrhea, states this has been this way since he is on antibiotics, bleeding on his left foot and at his PICC line site, and pain in leg 10. Patient denies chest pain, shortness of breath, nausea, vomiting, abdominal pain, dark or tarry stools, fever, or syncope. Admitting VS elevated blood pressure 175/78, pulse 66, respiration 16, temperature 98.3, O2 sat 94% on room air. Fingerstick glucose 186. Review of Systems General: Reports: 10 or more systems reviewed and unremarkable except in HPI and below Medications/Allergies Home Medications ?Medication ?Instructions ?Recorded ?Confirmed ?Last Taken ?Type Toe Filler #1 ea 09/12/22 10/02/25 Unkn own Rx cam walker #1 ea 03/27/24 10/02/25 Unkn own Rx hydrocodone 10 mg-acetaminophen 1 tab PO Q6H PRN Pain 09/22/24 10/02/25 09/23/25 History 325 mg tablet Diabetic Shoes with toe filler to #1 ea 10/28/2409/14 Unknown Rx left and right Blood Glucose Meter #1 ea 01/23/25 10/02/25 Unkn own Rx Blood Glucose Test Strips #100 ea 01/23/25 10/02/25 Un known Rx blood-glucose,business technology analyst,cont #1 ea 02/11/25 10/02/25 Un known Rx (Dexcom G7 [employer]ship) doxepin 100 mg capsule 200 mg (2 x 100 mg) PO BEDTI ME #60 03/26/25 10/02/25 09/22/25 Rx caps blood-glucose sensor (Dexcom G7 #9 ea 05/04/25 5 Unknown Rx Sensor device) pen needle, diabetic 32 gauge x #100 ea 05/07/2510/02 Unknown Rx (TechLITE Pen Needle) metoprolol succinate 50 mg 50 mg PO BEDTIME #90 tabs 0 07/13/25 10/02/25 09/23/25 Rx tablet,extended release 24 hr aspirin 81 mg tablet,delayed 81 mg PO DAILY #90 tabs 1 10/02/25 09/23/25 Rx release lisinopril 40 mg tablet 40 mg PO DAILY #90 tabs 07/1510/02/25 09/23/25 Rx insulin aspart U-100 100 unit/mL 20 unit SUBCUT TID 10/02/25 09/23/25 History (3 mL) subcutaneous pen (Novolog FlexPen U-100 Insulin aspart) insulin glargine 100 unit/mL (3 33 unit SUBCUT BEDTIME 08/17/25 10/02/25 09/23/25 History mL) subcutaneous pen (Lantus Solostar U-100 Insulin) hydroxyzine HCl 50 mg tablet 50 mg PO QID PRN insomnia #120 tabs 11/04/0810/02/25 09/22/25 Rx fenofibrate nanocrystallized 145 145 mg PO DAILY #90 t abs 09/07/25 10/02/25 09/23/25 Rx mg tablet meloxicam 15 mg tablet 15 mg PO DAILY PRN Pain 09/1410/02/25 Unknown History prednisolone acetate 1 % eye 1 drp ophthalmic (eye) QI D 09/24/25 10/02/25 Unknown History drops,suspension daptomycin 1,000 mg/100 mL in 0.9 974 mg (97.4 mL) IV Q24H 32 days 09/28/25 10/02/25 Unknown Rx % sodium chlor intravenous piggyback hydralazine 25 mg tablet 25 mg PO TID 90 days #270 ta bs 09/28/25 10/02/25 Unknown Rx dulaglutide 0.75 mg/0.5 mL 0.75 mg (0.5 mL) SUBCUT Q7D #2 mL 10/01/25 10/02/25 Unknown Rx subcutaneous pen injector (Trulicity) Allergies Allergy/AdvReac Type Severity Reaction Status Date / Time No Known Allergies Allergy Verified 10/02/25 14:34 PFSH Acute PFSH: Medical History (Updated 10/02/25 @ 14:51 by Ernesto Cali DPM) Cellulitis of right foot Psychiatric care History of nonmelanoma skin cancer History of malignant melanoma Chronic pain in right foot Diabetes mellitus with polyneuropathy Cellulitis and abscess of right lower extremity Non-pressure chronic ulcer of other part of right foot with necrosis of bone Dyslipidemia Acute renal failure Cellulitis of leg, right Hallux rigidus, right foot Sleep apnea in adult Restless leg syndrome Dyslipidemia Encounter for long-term use of opiate analgesic Shoulder pain Diverticulosis Type 2 diabetes mellitus with other diabetic neurological complication Essential (primary) hypertension CHF (congestive heart failure) Amputated great toe Wound dehiscence, surgical Surgical History History of amputation of right great toe History of amputation of left great toe History of colonoscopy 2017 History of inguinal hernia repair, bilateral 1970,1977 History of ankle surgery Hx of amputation of lesser toe Left foot big toe and second toe 01/21/20 at [facility] [place] Dr. Leal Status post PICC central line placement H/O hernia repair History of amputation of lesser toe of right foot Family History Mother Cancer Other Dyslipidemia Denies family history of Diabetes CAD (coronary artery disease) Clotting disorder Dementia Hyperlipidemia Psychiatric illness Chronic kidney disease (CKD) Suicide Anesthesia complication Bleeding disorder Family history of premature coronary artery disease Lung disease Hypertension Stroke Social History Smoking and tobacco/nicotine status: never used tobacco/nicotine Second hand smoke exposure: Yes Alcohol intake: current Alcohol intake frequency: holidays/special occasions only Substance/Drug Use: former Date of last use: 2012 Former substance use details: Previously used meth and weed Additional social history: Patient wants full code as discussed with Jewel Prasad MD on 09/23/2025 patient is retired or disabled from [employer] working in [employer]. Jacobo his cousin lives with him and Awa Glaser who lives in [place] is his next of kin if he is unable to make decisions. 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 Pets and animals: Yes (Sassy) Pets & animals: dog(s) Leisure activites: games and other Leisure activities details: watch TV Sexually active: No Do you think of yourself as: Straight/Heterosexual Current gender identity: Male Yolande/Gnosticist: None Special yolande needs: No Agree to transfusion: Yes Vitals/I&O/Wt Weight last 48 hrs Weight 116.573 kg Physical Exam Narrative: General: Alert and oriented, sitting up in bed comfortably without any distress HEENT: Normocephalic, atraumatic, grossly unremarkable exam Cardio: normal rate rhythm, normal S1-S2 without any murmurs, rubs, or gallops and JVD normal Respiratory: normal vascular breathing on auscultation without any wheezes, stridor, rhonchi GI: Abdomen soft, nontender, nondistended, normoactive bowel sounds present all 4 quadrants, Neuro: intact cranial nerves motor and sensory and cerebellar/coordination function without any focal neurological deficit Behavior: Appropriate and cooperative Extremities: Adequate palpable pulses, Left leg edema and erythema, Left foot in dressing did not visualize wound but reviewed pictures taken in office from earlier today - please see pictures in chart. A&P Assessment and plan 1. Risk for falls: 2. Bleeding from surgical wound: 3. Fall: 4. Osteomyelitis of foot: 5. Diabetic neuropathy: 6. Diabetes mellitus: 7. CKD stage 3a, GFR 45-59 ml/min: 8. Noncompliance: 9. Essential (primary) hypertension: 10. Cellulitis of foot, left: Plan: Dehiscence left foot surgical incision Falls and risk of falls Non-compliance with prescribed weight bearing - Consultation and Management with Phlebotomist Associate - Fall Precautions - Multi-modal pain control - NPO midnight with surgical interventions tentatively planned for the a.m. - Non-weight bearing Left leg - PT/OT evaluation and recommendations Osteomyelitis Cellulitis - Prior consultation and mangement Per - IV Daptomyucin 8mg/kg q24hr through 10/29/25 - PICC line confirmed in approrpate position, continue IV antibotics as previously prescribed - Pending repeat labs and blood cultures with worsening cellulitis DM-II Diabetic Neuropathy - Pending repeat A1C - Medium sliding scale insulin, POC - ADA diet when resumbed - Long acting insulin 33u nightly (hold until after procedure tomorrow) - Hold Trulicity Essential hypertension - Admitting Blood pressure 175/778 - Resume home medication lisinopril 40mg PO Daily, Hydralazine 25mg PO TID, Metoprolol 50mg PO Daily - PRN IV hydralazine for SBP >180 Hyperlipidemia - Pending Lipid Panel - Continue Fenofibrate 145mg PO Daily, ASA 81mg PO Daily Chronic kidney disease stage III - Baseline Cr - Renally dose medications and avoid nephrotoxic agents Obesity - BMI 36.9 - Lifestyle modifications and weight loss advised Sleep apnea - Continue supportive care, as needed oxygen Insomnia - Continue PRN hydroxyzine 50mg Nightly Depression/Anxiety - Stable - Continue Doxepin 200mg PO nightly VTE PPX: SQ lovenox GI PPX: PPI Code Status: Full Code PDMP PDMP Reviewed: Last Reviewed 10/02/25 19:05 by Serene Mcdonnell, ORE WASHER Attestations Medical Necessity Statement*: Patient is admitted inpatient, will cross 2 midnights due to worsening infection, need for surgical interventions, continue IV antibiotic therapy, pain control, and complex medical management. and High Time for a total of 76 minutes, includes reviewing past or interval history, examining/interviewing patient, placing orders, counseling patient/family/other support, updating patient/family/other support, discussing plan of care with staff, communicating with other healthcare providers, documenting encounter and coordinating care Diagnoses Risk for falls Z91.81 Bleeding from surgical wound Fall W19.XXXA Osteomyelitis of foot M86.9 Diabetic neuropathy E11.40 Diabetes mellitus E11.9 CKD stage 3a, GFR 45-59 ml/min N18.31 Noncompliance Z91.199 Essential (primary) hypertension I10 Cellulitis of foot, left L03.116
--- NOTE | 2025-10-02 17:13 | ECG_ITS ---
Medxnote Test Date: 2025-10-02 Pat Name: Braxton Rosales Department: Room: 261 Gender: Male Manager Rail: : 1970 Requested By: Serene Constantino Order Number: [id number] Reading MD: SHARAD HILL Measurements Intervals [place] Rate: 62 P: 0 WI: 198 QRS: -31 QRSD: 88 T: 28 QT: 405 QTc: 412 Interpretive Statements SINUS RHYTHM LOW QRS VOLTAGE IN PRECORDIAL LEADS [QRS DEFLECTION < 1.0 mV IN CHEST LEADS] PATTERN CONSISTENT WITH PULMONARY DISEASE INFERIOR MYOCARDIAL INFARCTION , PROBABLY OLD [40+ ms Q WAVE AND/OR ST/T ABNORMALITY IN II/aVF] Compared to ECG 01/26/2023 21:34:53 Low QRS voltage now present Myocardial infarct finding now present Left-axis deviation no longer present Electronically Signed On 10-07-2025 20:51:52 PHARMACEUTICAL PROCESS ENGINEER by SHARAD HILL [id number]
[2025-10-02 19:19] LABS: Hematocrit 36.4 % (37-53); Hemoglobin 11.50 g/dL (11.27-16.99); Mean Corpuscular HGB Conc 31.6 g/dL (30-55); Mean Corpuscular Hemoglobin 27.4 pg (27-33); Mean Corpuscular Volume 86.9 fl (82-101); Nucleated Red Blood Cells % 0 %; Platelet Count 315 10^3/cmm (157-399); Red Blood Count 4.19 10^6/uL (3.85-5.65); White Blood Count 7.15 10^3/uL (3.29-11.43)
[2025-10-02 19:35] LABS: Anion Gap 15.2 (5-19); Blood Urea Nitrogen 27 mg/dL (6-20); Calcium 8.9 mg/dL (8.5-10.5); Carbon Dioxide 23 mmol/L (22-29); Chloride 103 mmol/L (98-107); Glucose 238 mg/dL (65-115); Osmolality Calculated 297 mOsm/kg (285-295); Potassium 4.2 mmol/L (3.5-5.1); Sodium 137 mmol/L (136-145)
[2025-10-02 20:00] VITALS: BP 134/66; PULSE 69; RESP 18; TEMP 36.8; O2SAT 93
[2025-10-02] MEDS: DAPTOMYCIN IV (21:55)
[2025-10-02] MEDS: SODIUM CHLORIDE 0.9% IV (21:55)
[2025-10-02 22:38] VITALS: BP 138/69; PULSE 67; RESP 17; TEMP 36.6; O2SAT 93
--- NOTE | 2025-10-02 23:24 | PC.NURSE ---
Report called to [facility] at 2109 to Tracey Soria RN
--- NOTE | 2025-10-02 23:26 | PC.NURSE ---
Transport update unable to transport till AM due to another ALS transport of more critical patient needed
--- NOTE | 2025-10-03 00:07 | PC.NURSE ---
2155 - Nurse found loose pain pills in patients denture cup in his room. This nurse and Lucina Abad LPN talked to patient, asked him what the pills were. Patient reported to nurses that they were his home hydrocodone. Nurses explained policy/procedure regarding home medications, nurses counted pills and locked them in pyxis. Patient given documentation sheet showing they had been locked up.
[2025-10-03] MEDS: HYDROcodone-acetaminophen 5-325 mg Tablet 1 TAB PO ×4 (02:03→20:18)
[2025-10-03 04:00] VITALS: BP 160/76; PULSE 63; RESP 16; TEMP 36.7; O2SAT 95
[2025-10-03 04:59] LABS: Hematocrit 33.5 % (37-53); Hemoglobin 11.30 g/dL (11.27-16.99); Mean Corpuscular HGB Conc 33.7 g/dL (30-55); Mean Corpuscular Hemoglobin 28.1 pg (27-33); Mean Corpuscular Volume 83.3 fl (82-101); Nucleated Red Blood Cells % 0 %; Platelet Count 323 10^3/cmm (157-399); Red Blood Count 4.02 10^6/uL (3.85-5.65); White Blood Count 6.80 10^3/uL (3.29-11.43)
[2025-10-03 05:18] LABS: Alanine Aminotransferase 32 U/L (0-41); Albumin Level 3.9 g/dL (3.5-5.2); Alkaline Phosphatase 38 U/L (40-130); Anion Gap 13.6 (5-19); Aspartate Amino Transferase 16 U/L (0-40); Blood Urea Nitrogen 23 mg/dL (6-20); Calcium 9.1 mg/dL (8.5-10.5); Carbon Dioxide 26 mmol/L (22-29); Chloride 101 mmol/L (98-107); Globulin 2.3 g/dL (1.3-4.6); Glucose 136 mg/dL (65-115); Magnesium 2.1 mg/dL (1.7-2.3); Osmolality Calculated 288 mOsm/kg (285-295); Potassium 4.6 mmol/L (3.5-5.1); Sodium 136 mmol/L (136-145); Total Protein 6.2 g/dL (6.6-8.7)
[2025-10-03 05:31] LABS: Estmated Average Glucose 134; Hemoglobin A1C 6.3 % (4.0-6.0)
[2025-10-03 06:36] LABS: Cholesterol 153 mg/dL (0-200); HDL Cholesterol 21 mg/dL (60-100); Triglycerides 287 mg/dL (0-150)
--- NOTE | 2025-10-03 07:48 | P.PN_ITS ---
Subjective 2 Subjective: Patient is a very pleasant 55-year-old male seen and examined at bedside on hospital rounds today. Patient laying in bed stating that he did not sleep well last night, has left lower extremity pain but denies new or worsening symptoms. Patient surgery will be postponed until tomorrow, he will resume carb controlled diet and be n.p.o. at midnight in anticipated interventions. Vital Signs are stable: Blood pressure 166/66, pulse 58, respirations 18, temp 98.4, O2 sat 95% on room air. Reviewed patient's labs normal white count 6.80, hemoglobin 11.30, BUN 23, creatinine 1.3, hemoglobin A1c 6.3. Patient does have elevated triglycerides 287, cholesterol 153, LDL 75, HDL 21. Vitals/I&O/Wt Last Vital Signs Temp 98.1 F 10/03/25 04:00 Pulse 63 10/03/25 04:00 Resp 16 10/03/25 04:00 BP 160/76 10/03/25 04:00 Pulse Ox 95 10/03/25 04:00 O2 Del Method Room Air 10/03/25 04:00 10/02/25 10/03/25 10/03/25 22:59 06:59 14:59 Intake Total 720 / 720 100 / 820 Output Total 300 / 300 350 / 650 Balance 420 / 420 -250 / 170 Weight last 48 hrs Weight 118.2 kg Weight 116.573 kg Physical Exam 2 Narrative: General: Alert and oriented, sitting up in bed with mild left leg/foot pain but in NAD. HEENT: Normocephalic, atraumatic, grossly unremarkable exam Cardio: normal rate rhythm, normal S1-S2 without any murmurs, rubs, or gallops and JVD normal Respiratory: normal vascular breathing on auscultation without any wheezes, stridor, rhonchi GI: Abdomen soft, nontender, nondistended, normoactive bowel sounds present all 4 quadrants, Neuro: intact cranial nerves motor and sensory and cerebellar/coordination function without any focal neurological deficit Behavior: Appropriate and cooperative Extremities: Adequate palpable pulses, Left leg edema and erythema, Left foot in dressing did not visualize wound but reviewed pictures taken in office from earlier today - please see pictures in chart. Data 10/03/25 04:28 10/03/25 04:28 Micro: Microbiology 10/02/25 19:12 Blood Culture - Preliminary Blood SPECIMEN COLLECTED 10/02/25 19:11 Blood Culture - Preliminary Blood SPECIMEN COLLECTED A&P Assessment and plan 1. Risk for falls: 2. Bleeding from surgical wound: 3. Fall: 4. Osteomyelitis of foot: 5. Diabetic neuropathy: 6. Diabetes mellitus: 7. CKD stage 3a, GFR 45-59 ml/min: 8. Noncompliance: 9. Essential (primary) hypertension: 10. Cellulitis of foot, left: Plan: Dehiscence left foot surgical incision Falls and risk of falls Non-compliance with prescribed weight bearing - Consultation and Management with Semiconductor Wafer Inspector - Fall Precautions - Multi-modal pain control - NPO midnight with surgical interventions tentatively planned for the a.m. - CXR: No acute cardiopulmonary abnormality, EKG: Sinus rhythm, VR 62, WA 198, QTC 412 - Non-weight bearing Left leg - PT/OT evaluation and recommendations Osteomyelitis Cellulitis - Prior consultation and mangement Per - IV Daptomyucin 8mg/kg q24hr through 10/29/25 - PICC line confirmed in approrpate position, continue IV antibotics as previously prescribed - Pending repeat blood cultures x 2 DM-II Diabetic Neuropathy - A1C 6.3 - Medium sliding scale insulin, POC - ADA diet when resumbed - Long acting insulin 33u nightly (hold until after procedure tomorrow) reduced dosing to 20u nightly and will increase as tolerated - Hold Trulicity Essential hypertension - Blood pressure 166/66 - Resume home medication lisinopril 40mg PO Daily, Hydralazine 25mg PO TID, Metoprolol 50mg PO Daily - PRN IV hydralazine for SBP >180 Hyperlipidemia - Triglyceride 287, cholesterol 153, LDL 75, HDL 21 - Continue Fenofibrate 145mg PO Daily, ASA 81mg PO Daily Chronic kidney disease stage III - Baseline Cr around 1.2, Cr currently 1.3 - Renally dose medications and avoid nephrotoxic agents Obesity - BMI 36.9 - Lifestyle modifications and weight loss advised Sleep apnea - Continue supportive care, as needed oxygen Insomnia - Continue PRN hydroxyzine 50mg Nightly Depression/Anxiety - Stable - Continue Doxepin 200mg PO nightly VTE PPX: SQ lovenox GI PPX: PPI Code Status: Full Code PDMP PDMP Reviewed: Last Reviewed 10/02/25 19:05 by Serene Mcdonnell, MEMBER OF THE LEGISLATIVE ASSEMBLY Attestations 2 Medical Necessity Statement*: Patient continues inpatient, will cross 2 midnights due to worsening infection, need for surgical interventions, continue IV antibiotic therapy, pain control, and complex medical management. Coding Level of Care Code 77337 Diagnoses Risk for falls Z91.81 Bleeding from surgical wound Fall W19.XXXA Osteomyelitis of foot M86.9 Diabetic neuropathy E11.40 Diabetes mellitus E11.9 CKD stage 3a, GFR 45-59 ml/min N18.31 Noncompliance Z91.199 Essential (primary) hypertension I10 Cellulitis of foot, left L03.116
[2025-10-03 07:59] VITALS: BP 168/68; PULSE 62; RESP 17; TEMP 36.8; O2SAT 95
--- OUTSIDE RECORDS SUMMARY | 2025-10-03 08:14 | XMS_ITS | Clinical Summary ---
Author Organization [facility] Address [address] [place] [address] Care Team Providers Care Agribusiness Internship Name Role Phone Bernard Samson MD Primary Care Provider [phone] Allergies No known active allergies Medications metFORMIN [...] (#1) 2025 Medical Devices Implanted Type Area Tipple Supervisor Device Identifier Shelf Expiration Date Model / Serial / Lot Wire K Trocar Dbl .[id number] - [id number] Implanted:Qty: 1 on 05/18/2015 by Derik Sanford MD at [facility] Wire Left: Finger [facility] [facility] 01/01/2020 [id number] / / [id number] Wire K Trocar Dbl .[id number] - [id number] Implanted:Qty: 1 on 06/08/2015 by Derik Sanford MD at [facility] Wire Left: Finger [employer] [facility] [id number] / / LOAD# [id number] 24 Gauge Steel Wire Implanted:Qty: 1 on 06/08/2015 by Derik Sanford MD at [facility] Left: Finger / / LOAD# [id number] Description:272 item moved t o picklist for correct chg Additional Health Concerns Infection Onset Date Last Indicated MRSA Comment:Foot ulcer 05/2015 ([facility]) 06/08/2015 06/08/2015 Insurance Advance Directives For more information, please contact: [phone] * Full Code (Latest Code Status on File) Date Activated Date Inactivated Comments 06/08/2015 8:33 AM 06/08/2015 2:33 PM * Full Code Date Activated Date Inactivated Comments 05/18/2015 9:30 AM 05/18/2015 6:59 PM Care Teams Agribusiness Internship Relationship Specialty Start Date End Date Bernard Samson MD [address] [facility] [address] [place] [address] PCP - General Family Practice 06/02/15
--- OUTSIDE RECORDS SUMMARY | 2025-10-03 08:14 | XMS_ITS | Patient Health Record ---
Author Organization [facility] Address [address] [place] [address] Care Team Providers Care Elderly Caregiver Name Role Phone Tito Puentes MD Primary Care Provider Unavailab ileana NicoleRosangela alvarezica Unavailable [phone] Tito Santiago Unavailable [phone] Allergies No Known Allergies Results Component Value Reference Range Flag Notes Urine Drug Screen (cup read) - [id number] Reviewed date:10/01/2025 10:09:52 AM Interpretation: Performing Lab: Notes/Report: OPI Pos Tox Results Reviewed date:04/02/2025 10:16:00 AM Interpretation: Performing Lab: Notes/Report: Tox Results Reviewed date:06/09/2025 02:34:09 PM Interpretation: Performing Lab: Notes/Report: Urine Drug Screen (cup read) - [id number] Reviewed date:06/01/2025 09:04:31 AM Interpretation: Performing Lab: Notes/Report: OPI + OXY + Urine Confirmation Panel (in strument) - [id number] Reviewed date:06/09/2025 02:46:34 PM Interpretation: Performing Lab: [...] the U.S. Food and Drug Administration. Urine Confirmation Panel (in strument) - [id number] Reviewed date:12/12/2024 01:38:41 PM Interpretation: Performing Lab: [...] Food and Drug Administration. Tox Results Reviewed date:12/12/2024 01:46:12 PM Interpretation: Performing Lab: Notes/Report: Urine Drug Screen (cup read) - [id number] Reviewed date:01/29/2025 08:45:09 AM Interpretation: Performing Lab: Notes/Report: OPI + Urine Drug Screen (cup read) - [id number] Reviewed date:03/26/2025 10:29:23 AM Interpretation: Performing Lab: Notes/Report: OPI + Urine Confirmation Panel (in strument) - [id number] Reviewed date:04/02/2025 10:08:57 AM Interpretation: Performing Lab: [...] by the U.S. Food and Drug Administration. kavyazzUrine Drug Screen (confir mation by instrument) - [id number] Reviewed date:12/09/2024 10:36:56 AM Interpretation: Performing Lab: Notes/Report: Reason For Referral No Information Medications Medication SIG (Take, Route, Frequency, Duration) Notes Start Date End Date Status Meloxicam 15 MG Tablet 1 tablet as needed Orally Once a day; Duration: 30 days Fill 30 days from previous Rx 10/01/2025 Active Victoza 2-Bjorn 1.8mg daily *Reorder from [email or web address] for eRx and Interaction Alerts* Active HYDROcodone-Acetamino [...] Low Dose Aspirin 81mg daily *[facility]* Active nortriptyline 100mg at bedtime *[facility]* Active HYDROcodone-Acetamino phen 10-325 MG Tablet 1 tablet Orally every 6 hrs; Duration: 30 days As needed Not to exceed 4 per day Fill on 10/03/2025 10/01/2025 11/02/2025 Active furosemide 20mg daily *[facility] Interaction [facility]s* Active Novolog Flexpen U-100 Insulin 20units TID *[facility] and Interaction Alerts* Active pantoprazole 40mg daily *[facility] for [facility] and Interaction Alerts* Active ropinirole 1mg daily *[facility]* Active Levemir FlexTouch U100 Insulin 42 units daily *[facility] for [facility] and Interaction Alerts* Active potassium chloride 30meq every 3 days *Reorder from [facility] for [facility] and Interaction Alerts* Active sildenafil 1tab as directed *Re[facility] from [facility] for [facility] and Interaction Alerts* Active lisinopril 40mg daily *Reorder f rom [facility] for eRx and Interaction Alerts* Active rosuvastatin 1tab at bedtime *[facility] and Interaction Alerts* Active metoprolol succinate 50mg daily *[facility] from [facility] for [facility]Rx and Interaction Alerts* Active Social [...] Polyneuropathy due to type 2 diabetes mellitus (482039264) Type 2 diabetes mellitus with diabetic polyneuropathy (E11.42) 04/09/20 Active confirmed Problem Chronic pain syndrome (597112697) Chronic pain syndrome (G89.4) 04/09/20 Active confirmed Problem Disorder of joint of right shoulder region (disorder) (8935131775601368 3) Other specific arthropathies, not elsewhere classified, right shoulder (M12.811) 04/09/20 Active confirmed Problem Rotator cuff arthropathy of left shoulder (disorder) (2693763440259224 0) Other specific arthropathies, not elsewhere classified, left shoulder (M12.812) 04/09/20 Active confirmed Problem Abnormal gait (63091149) Unspecified abnormalities of gait and mobility (R26.9) 04/09/20 Active confirmed Problem Traumatic amputation of toe OR toes without complication (24955221) 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, 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) 04/09/20 Active confirmed Problem Traumatic amputation, lesser toe (246114984) 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, subsequent encounter (S98.131D) Active confirmed Problem Traumatic amputation of toe OR toes without complication (65278709) Complete traumatic amputation of one left lesser toe, initial encounter (S98.132A) 04/09/20 Active confirmed Problem Complete traumatic amputation of one left lesser toe, subsequent encounter (S98.132D) Active confirmed Problem High risk drug monitoring status (124456415) 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 (Z79.891) Active confirmed Problem History of malignant neoplasm of skin (situation) (666955845) Personal history of other malignant neoplasm of skin (Z85.828) 04/09/20 Active confirmed Vital Signs Height-cm 177.8 cm 10/01/2025 Weight-kg 115.67 kg 10/01/2025 Height 70.00 in 10/01/2025 Weight 255 lbs 10/01/2025 BMI 36.58 kg/m2 10/01/2025 Encounters Encounter Location Date Provider Diagnosis [facility] [address] [address] 06/01/2025 Lucina Hughes Type 2 diabetes mellitus with diabetic polyneuropathy E11.42 ; Chronic pain syndrome G89.4 ; Other specific arthropathies, not elsewhere classified, right shoulder M12.811 ; Other specific arthropathies, not elsewhere classified, left shoulder M12.812 ; Unspecified abnormalities of gait and mobility R26.9 ; 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 Z79.891 ; [...] lesser toe, initial encounter S98.132A [facility] [address] [address] 03/26/2025 Lucina Hughes Chronic pain syndrom e [...] other malignant neoplasm of skin Z85.828 ; 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 Z79.891 ; 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, initial encounter S98.131A and Complete traumatic amputation of one left lesser toe, initial encounter S98.132A [facility] [place] [address] [place] [phone] 01/29/2025 Lucina Hughes Chronic pain syndrom e [...] other malignant neoplasm of skin Z85.828 ; retirement (current) use of opiate analgesic Z79.891 ; 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, initial encounter S98.131A and Complete traumatic amputation of one left lesser toe, initial encounter S98.132A [facility] [address] [address] 12/05/2024 Tito Santiago Type 2 diabetes mellitus with diabetic polyneuropathy E11.42 ; Chronic pain syndrome G89.4 ; Other specific arthropathies, not elsewhere classified, right shoulder M12.811 ; Other specific arthropathies, not elsewhere classified, left shoulder M12.812 ; Unspecified abnormalities of gait and mobility R26.9 and retirement (current) use of opiate analgesic Z79.891 [facility] [address] [address] 10/01/2025 Lucina Hughes Chronic pain syndrom e G89.4 ; Type 2 diabetes mellitus with diabetic polyneuropathy E11.42 ; Other specific arthropathies, not elsewhere classified, right shoulder M12.811 ; retirement (current) use of opiate analgesic Z79.891 ; Other specific arthropathies, not elsewhere classified, left shoulder M12.812 and Unspecified abnormalities of gait and mobility R26.9 [facility] [address] [address] 07/29/2025 Tito Santiago Chronic pain syndrom e G89.4 ; Type 2 diabetes mellitus with diabetic polyneuropathy E11.42 ; Other specific arthropathies, not elsewhere classified, right shoulder M12.811 ; retirement (current) use of opiate analgesic Z79.891 ; Other specific arthropathies, not elsewhere classified, left shoulder M12.812 and Unspecified abnormalities of gait and mobility R26.9 [facility] [address] [address] 10/01/2025 Tito Santiago Other specific arthropathies, not elsewhere classified, right shoulder M12.811 and Chronic pain syndrome G89.4 [facility] [address] [place] [address] 06/01/2025 Tito Santiago Other specific arthropathies, not elsewhere classified, right shoulder M12.811 and Chronic pain syndrome G89.4 [facility] [place] [address] [place] [phone] 03/26/2025 Tito Santiago Other specific arthropathies, not elsewhere classified, right shoulder M12.811 and Chronic pain syndrome G89.4 [facility] [place] [address] [place] [phone] 01/29/2025 Tito Santiago Other specific arthropathies, not elsewhere classified, right shoulder M12.811 and Chronic pain syndrome G89.4 Assessments Encounter Date Diagnosis (ICD Code) Assessment Notes Treatment Notes Treatment Clinical Notes Section Notes 12/05/2024 Type 2 diabetes mellitus with diabetic [...] effects are noted. Last UDS and [place] CANDY DIPPER reviewed today. Patient is advised that best [...] effects are noted. Last UDS and [place] CANDY DIPPER reviewed today. Patient is advised that best [...] effects are noted. Last UDS and [place] CANDY DIPPER reviewed today. Patient is advised that best [...] abide by our urine testing policy. 10/01/2025 Other specific arthropathies, not elsewhere classified, right shoulder (ICD-10 - M12.811) 10/01/2025 Type 2 diabetes mellitus with diabetic [...] effects are noted. Last UDS and [place] CANDY DIPPER reviewed today. Patient is advised that best [...] effects are noted. Last UDS and [place] CANDY DIPPER reviewed today. 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 (ICD-10 - [...] gait and mobility (ICD-10 - R26.9) 06/01/2025 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 (ICD-10 - Z79.891) 03/26/2025 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, subsequent encounter (ICD-10 - S98.131D) 01/29/2025 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, subsequent encounter (ICD-10 - S98.131D) 12/05/2024 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 07/29/2025 Other Allison Schafer, am scribing for Dr. Tito Santiago. I, Dr. Tito Santiago, personally performed the services described in this documentation, as scribed by Allison Rome, and it is both accurate and complete. Plan Of Treatment Pending Test Test Name Order Date Urine Confirmation Panel (instrument) - [id number] 10/01/2025 Next Appt Details Provider Name:Lucina hay, 11/26/2025 03:40:00 PM, [address] [place], [address], Insurance Providers Payer Name Payer Address Payer Phone Subscriber Number Group Number Insured Name Patient Relationship to Insured Coverage Start Date Coverage End Date [place] Medicaid [address] [place] [address] [id number] Braxton Rosales Self - patient is the insured Medical (General) History Medical History History ICD Code Cancer, Diabetes, High blood pressure, Surgical History Surgery Date(Month/Year) Finger surgery hernia Skin Cancer Removal Toe amputation
--- OUTSIDE RECORDS SUMMARY | 2025-10-03 08:14 | XMS_ITS | Clinical Summary ---
Author Organization [facility] Address [address] [facility] [address] 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 Gender Identity Not on file Sexual [...] (#1) 2025 Medical Devices Implanted Type Area Field Crop Farm Worker Device Identifier Shelf Expiration Date Model / Serial / Lot Wire K Trocar Dbl .[id number] - [id number] Implanted:Qty: 1 on 05/18/2015 by Derik Sanford MD Wire Left: Finger [facility] 01/01/2020 [id number] / / [id number] Wire K Trocar Dbl .[id number] - [id number] Implanted:Qty: 1 on 06/08/2015 by Derik Sanford MD Wire Left: Finger [facility] [id number] / / LOAD# [id number] Gauge Steel Wire Implanted:Qty: 1 on 06/08/2015 by Derik Sanford MD Left: Finger / / LOAD# [id number] Description:272 item moved t o picklist for correct chg Additional Health Concerns Infection Onset Date Last Indicated MRSA Comment:Foot ulcer 05/2015 ([facility]) 06/08/2015 06/08/2015 Care Teams Signal Constructor Relationship Specialty Start Date End Date Bernard Samson MD [address] [phone] PCP - General Family Practice 06/02/15
[2025-10-03] MEDS: hyDRALAzine 20 mg/mL INJ 1 mL 10 MG IVP (08:32)
[2025-10-03 11:04] VITALS: BP 166/66; PULSE 58; RESP 18; TEMP 36.9; O2SAT 95
--- NOTE | 2025-10-03 11:13 | PC.CHAP ---
Pastoral Care Encounter/Spiritual Assessment Type of Contact [] Declined pipe fitter supervisor visit [] Patient/Family/Request visit [] Outpatient visit [] Follow-up visit [] Physician referral [] Code/Alert [] Routine visit [] Staff referral [] Actively dying [] Patient sleeping [] Family support [] [] Out of room [] Palliative care [] [x] Receiving care in room [] Pre-surgical visit [] Trauma [] Long length of stay [] ICU visit [] Other: Relational/Emotional Strength [] Patient feels connected with others/family/visitors/staff [] Distress [] Loneliness/isolation [] Abandonment Spirituality of Patient [] Person of Yolande [] Attends Hoahaoism of their Yolande [] Believes in Prayer [] Reads Bible or Caodaism materials [] There are Spiritual issues to be addressed Parking Lot Signaler Interventions [] Prayer [] Active listening [] Non-anxious presence [] Spiritual/emotional support [] Crisis/trauma care [] Spiritual counseling [] Bereavement support [] Provided bereavement packet [] Provided Bible/devotional materials [] Provided toy/stuffed animal, coloring book to patient or family member [] Provided Communion [] Anointing/[place] [] Salvation [] Completed spiritual assessment [] Other: Impact on Illness or Injury [] Angry [] Fearful [] Anxious [] Often cries [] Exhaustion [] Unable to work [] Unable to attend episcopalian [] Unable to walk/stand [] Unable to read [] Unable to drive [] Unable to eat/drink [] Unable to sleep [] Unable to be with family [] Patient intubated [] Other: Summary Time spent with patient
[2025-10-03] MEDS: lactobacillus 1 Tablet 1 TAB PO (15:52)
[2025-10-03 15:56] VITALS: BP 173/79; PULSE 69; RESP 18; TEMP 36.9; O2SAT 94
[2025-10-03] MEDS: SODIUM CHLORIDE 0.9% IV (17:10)
[2025-10-03] MEDS: DAPTOMYCIN IV (17:10)
[2025-10-03 20:00] VITALS: BP 145/68; PULSE 68; RESP 16; TEMP 36.3; O2SAT 94
[2025-10-03] MEDS: insulin glargine 100 units/1 mL 20 UNIT SUBCUT (20:17)
[2025-10-03] MEDS: metoprolol succinate ER (24 HR) 50 mg Tablet PO (20:18)
[2025-10-04] VITALS (15 sets, daily range): BP systolic 99–170; BP diastolic 45–86; PULSE 54–88; RESP 14–18; TEMP 36.4–37.2; O2SAT 93–98
--- NOTE | 2025-10-04 01:28 | ANES.PREANE2 ---
Pre-Anesthetic Assessment Height/Weight: Height 5 ft 10 in Weight 260 lb 9.382 oz Temp Pulse Resp BP Pulse Ox O2 Del Method 97.8 F 62 16 169/73 98 Room Air 10/04/25 00:00 10/04/25 00:00 10/04/25 00:00 10/04/25 00:00 10/04/25 00:00 10/03/25 15:56 Preop Diagnosis: Hematoma and amputation stump dehiscence left foot Operation Date: 10/04/25 10:00 Proposed Procedures p Incision And Drainage(Left) - Ernesto Cali DPM Anesthetic Plan ASA status: 4 Anesthesia: MAC Other: Patient was recently with us for similar procedure and did well Admitted 10/02/2025 with concerns of osteomyelitis History of hypertension on lisinopril and metoprolol Patient takes Trulicity for diabetes, last last taken Labs reviewed 10/03/2025 acceptable for procedure Echo 07/16/2024 showing EF of 60% with no RWMA. Mildly elevated filling pressures noted Plan for MAC anesthesia with local via surgeon Medications/Allergies Home Medications ?Medication ?Instructions ?Recorded ?Confirmed ?Last Taken ?Type Toe Filler #1 ea 09/12/22 10/03/25 Unknown Rx cam walker #1 ea 03/27/24 10/03/25 Unknown Rx hydrocodone 10 mg-acetaminophen 1 tab PO Q6H PRN Pain 09/22/24 10/03/25 10/02/25 12:30 History 325 mg tablet Diabetic Shoes with toe filler to #1 ea 10/28/24 10/03/25 Unknown Rx left and right Blood Glucose Meter #1 ea 01/23/25 10/03/25 Unknown Rx Blood Glucose Test Strips #100 ea 01/23/25 10/03/25 Unknown Rx blood-glucose,emergency communications operator,cont #1 ea 02/11/25 10/03/25 Unknown Rx (Dexcom G7 Finance Clerk) doxepin 100 mg capsule 200 mg (2 x 100 mg) PO BEDTIME #60 03/26/25 10/03/25 09/30/25 19:00 Rx caps blood-glucose sensor (Dexcom G7 #9 ea 05/04/25 10/03/25 Unknown Rx Sensor device) pen needle, diabetic 32 gauge x #100 ea 05/07/25 10/03/25 Unknown Rx /32 (TechLITE Pen Needle) metoprolol succinate 50 mg 50 mg PO BEDTIME #90 tabs 07/13/25 10/03/25 09/30/25 Rx tablet,extended release 24 hr aspirin 81 mg tablet,delayed 81 mg PO DAILY #90 tabs 07/17/25 10/03/25 09/30/25 Rx release lisinopril 40 mg tablet 40 mg PO DAILY #90 tabs 07/30/25 10/03/25 10/02/25 Rx insulin glargine 100 unit/mL (3 33 unit SUBCUT BEDTIME 08/17/25 10/03/25 09/30/25 20:00 History mL) subcutaneous pen (Lantus Solostar U-100 Insulin) hydroxyzine HCl 50 mg tablet 50 mg PO QID PRN insomnia #120 tabs 08/20/25 10/03/25 09/30/25 Rx fenofibrate nanocrystallized 145 145 mg PO DAILY #90 tabs 09/07/25 10/03/25 09/30/25 Rx mg tablet prednisolone acetate 1 % eye 1 drp ophthalmic (eye) QID 09/24/25 10/03/25 Unknown History drops,suspension daptomycin 1,000 mg/100 mL in 0.9 974 mg (97.4 mL) IV Q24H 32 days 09/28/25 10/03/25 Unknown Rx % sodium chlor intravenous piggyback hydralazine 25 mg tablet 25 mg PO TID 90 days #270 tabs 09/28/25 10/03/25 09/30/25 Rx dulaglutide 0.75 mg/0.5 mL 0.75 mg (0.5 mL) SUBCUT Q7D #2 mL 10/01/25 10/03/25 Unknown Rx subcutaneous pen injector (Trulicity) insulin lispro 100 unit/mL 20 unit SUBCUT TID PRN blood sugar 10/03/25 10/03/25 09/30/25 History subcutaneous pen Allergies Allergy/AdvReac Type Severity Reaction Status Date / Time No Known Allergies Allergy Verified 10/02/25 14:34 Current Medications Generic Name Dose Route Start Last Admin Trade Name Freq PRN Reason Stop Dose Admin Hydrocodone Bitart/Acetaminophen 1 tab 10/02/25 16:51 10/03/25 20:18 Hydrocodone-Acetaminophen 5-325 Mg Tablet PO 1 tab Q4H PRN Administration MODERATE TO SEVERE PAIN Docusate Sodium 100 mg 10/02/25 17:00 10/03/25 15:52 Docusate Sodium 100 Mg Capsule PO 100 mg BID ELISE Administration Doxepin HCl 200 mg 10/03/25 21:00 10/03/25 20:18 Doxepin 50 Mg Capsule PO 200 mg BEDTIME ELISE Administration Enoxaparin Sodium 40 mg 10/02/25 17:00 10/03/25 15:54 Enoxaparin 40 Mg/0.4 Ml Syringe SUBCUT 40 mg Q24H ELISE Administration Hydralazine HCl 10 mg 10/02/25 18:58 10/03/25 08:32 Hydralazine 20 Mg/Ml Inj 1 Ml IVP 10 mg Q4H PRN Administration HYPERTENSION Hydralazine HCl 25 mg 10/03/25 13:00 10/03/25 20:18 Hydralazine 25 Mg Tablet PO 25 mg TID ELISE Administration Hydroxyzine Pamoate 50 mg 10/03/25 13:01 10/03/25 15:52 Hydroxyzine 25 Mg Capsule PO 50 mg QID PRN Administration insomnia Daptomycin 950 mg/ Sodium 100 mls @ 100 mls/hr 10/02/25 19:00 10/03/25 18:42 Chloride IV Infused Q24H ELISE Infusion Protocol Insulin Glargine 20 unit 10/03/25 21:00 10/03/25 20:17 Insulin Glargine 100 Units/1 Ml SUBCUT 20 unit BEDTIME ELISE Administration Insulin Human Lispro 0 unit 10/02/25 18:00 10/03/25 20:18 Insulin Lispro 100 Unit/1 Ml SUBCUT 6 unit WM&BEDTIME ELISE Administration Protocol Lactobacillus Acidophilus 1 tab 10/03/25 17:00 10/03/25 15:52 Lactobacillus 1 Tablet PO 1 tab BID ELISE Administration Metoprolol Succinate 50 mg 10/03/25 21:00 10/03/25 20:18 Metoprolol Succinate Er (24 Hr) 50 Mg Tablet PO 50 mg BEDTIME ELISE Administration Pantoprazole Sodium 40 mg 10/03/25 05:00 10/03/25 04:[address] 40 Mg Tablet PO 40 mg DAILY ELISE Administration PFSH Anesthesia Medical History (Updated 10/04/25 @ 08:38 by Ernesto Cali DPM) Cellulitis of right foot Psychiatric care History of nonmelanoma skin cancer History of malignant melanoma Chronic pain in right foot Diabetes mellitus with polyneuropathy Cellulitis and abscess of right lower extremity Non-pressure chronic ulcer of other part of right foot with necrosis of bone Dyslipidemia Acute renal failure Cellulitis of leg, right Hallux rigidus, right foot Sleep apnea in adult Restless leg syndrome Dyslipidemia Encounter for long-term use of opiate analgesic Shoulder pain Diverticulosis Type 2 diabetes mellitus with other diabetic neurological complication Essential (primary) hypertension CHF (congestive heart failure) Amputated great toe Wound dehiscence, surgical Surgical History History of amputation of right great toe History of amputation of left great toe History of colonoscopy 2017 History of inguinal hernia repair, bilateral 1970,1977 History of ankle surgery Hx of amputation of lesser toe Left foot big toe and second toe [place] [facility] [place] Status post PICC central line placement H/O hernia repair History of amputation of lesser toe of right foot Family History Mother Cancer Other Dyslipidemia Denies family history of Diabetes CAD (coronary artery disease) Clotting disorder Dementia Hyperlipidemia Psychiatric illness Chronic kidney disease (CKD) Suicide Anesthesia complication Bleeding disorder Family history of premature coronary artery disease Lung disease Hypertension Stroke Social History Smoking and tobacco/nicotine status: never used tobacco/nicotine Second hand smoke exposure: Yes Alcohol intake: current Alcohol intake frequency: holidays/special occasions only Substance/Drug Use: former Date of last use: 2012 Former substance use details: Previously used meth and weed Additional social history: Patient wants full code as discussed with Jewel Prasad MD on 09/23/2025 patient is retired or disabled from [employer] working in [employer]. Jacobo his cousin lives with him and Awa Glaser who lives in [place] is his next of kin if he is unable to make decisions. 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, 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 Pets and animals: Yes (Mistisy) Pets & animals: dog(s) Leisure activites: games and other Leisure activities details: watch TV Sexually active: No Do you think of yourself as: Straight/Heterosexual Current gender identity: Male Yolande/Moravian: None Special yolande needs: No Agree to transfusion: Yes Data Anesthesia 10/04/25 03:41 10/04/25 03:41 Short CBC 10/02/25 10/03/25 Range/Units 19:11 04:28 WBC 7.15 6.80 (3.29-11.43) 10^3/uL Hgb 11.50 11.30 (11.27-16.99) g/dL Hct 36.4 L 33.5 L (37-53) % MCV 86.9 83.3 (82-101) fl Plt Count 315 323 (157-399) 10^3/cmm Neut % (Auto) 58.1 57.1 % Neut # (Auto) 4.16 3.88 (1.8-7.7) 10^3/uL BMP 10/02/25 10/03/25 19:11 04:28 Sodium 137 136 Potassium 4.2 4.6 Chloride 103 101 Carbon Dioxide 23 26 BUN 27 H 23 H Creatinine 1.4 H 1.3 H Glucose 238 H 136 H Calcium 8.9 9.1 Liver Function 10/03/25 Range/Units 04:28 Total Bilirubin 0.3 (0.15-1.2) mg/dL AST 16 (0-40) U/L ALT 32 (0-41) U/L Alkaline Phosphatase 38 L (40-130) U/L Albumin 3.9 (3.5-5.2) g/dL Microbiology 10/02/25 19:12 Blood Culture - Preliminary Blood NEGATIVE TO DATE 10/02/25 19:11 Blood Culture - Preliminary Blood NEGATIVE TO DATE Cardiac Studies: Echocardiogram 07/16/24 Echocardiogram Ultrasound 01/10/21
[2025-10-04] MEDS: lactobacillus 1 Tablet 1 TAB PO ×2 (04:34→17:27)
[2025-10-04 04:43] LABS: Hematocrit 35.1 % (37-53); Hemoglobin 11.50 g/dL (11.27-16.99); Mean Corpuscular HGB Conc 32.8 g/dL (30-55); Mean Corpuscular Hemoglobin 27.3 pg (27-33); Mean Corpuscular Volume 83.2 fl (82-101); Nucleated Red Blood Cells % 0 %; Platelet Count 345 10^3/cmm (157-399); Red Blood Count 4.22 10^6/uL (3.85-5.65); White Blood Count 7.39 10^3/uL (3.29-11.43)
[2025-10-04 05:22] LABS: Alanine Aminotransferase 26 U/L (0-41); Albumin Level 3.7 g/dL (3.5-5.2); Alkaline Phosphatase 40 U/L (40-130); Anion Gap 15.4 (5-19); Aspartate Amino Transferase 13 U/L (0-40); Blood Urea Nitrogen 16 mg/dL (6-20); Calcium 9.1 mg/dL (8.5-10.5); Carbon Dioxide 24 mmol/L (22-29); Chloride 102 mmol/L (98-107); Globulin 2.8 g/dL (1.3-4.6); Glucose 179 mg/dL (65-115); Magnesium 2.0 mg/dL (1.7-2.3); Osmolality Calculated 290 mOsm/kg (285-295); Potassium 4.4 mmol/L (3.5-5.1); Sodium 137 mmol/L (136-145); Total Protein 6.5 g/dL (6.6-8.7)
--- NOTE | 2025-10-04 07:40 | P.PN_ITS ---
Subjective 2 Subjective: Patient is a very pleasant 55-year-old male seen and examined at bedside on hospital rounds today. Patient sitting up in bed stating mild left foot pain but denies any other symptoms currently. Patient states that he felt like he slept much better last night. Discussed with patient about plans after surgery, patient states that he cannot signed his paycheck over 4 retirement and that he still has bills to pay and he currently only has Medicaid. Case management will speak with this patient on insurance issues and help him to decide whether he is going to retirement versus home postoperatively. Patient is n.p.o. with planned surgical interventions later this morning with lamp replacer Dr. Cali, pending postsurgical recommendations. Patient remains non-weightbearing left lower extremity. Vital signs are very stable, blood pressure 132/62, heart rate 55, respiration 17, temp 98.1 ?F, O2 sat 94% on room air. Reviewed labs within normal WBC 7.39, hemoglobin 11.50, hematocrit 35.1, platelet count 345, BUN 16, creatinine 1.7. Patient may be mild volume depleted, will give NS fluids postoperatively. Vitals/I&O/Wt Last Vital Signs Temp 98.2 F 10/04/25 06:57 Pulse 62 10/04/25 06:57 Resp 17 10/04/25 06:57 BP 170/85 10/04/25 06:57 Pulse Ox 97 10/04/25 06:57 O2 Del Method Room Air 10/04/25 06:57 10/03/25 10/04/25 10/04/25 22:59 06:59 14:59 Intake Total 580 / 1420 120 / 1540 Output Total 450 / 1450 Balance 130 / -30 120 / 90 Weight last 48 hrs Weight 118.473 kg Weight 118.473 kg Weight 118.2 kg Weight 116.573 kg Physical Exam 2 Narrative: General: Alert and oriented, sitting up in bed with mild left leg/foot pain but in NAD. HEENT: Normocephalic, atraumatic, grossly unremarkable exam Cardio: normal rate rhythm, normal S1-S2 without any murmurs, rubs, or gallops and JVD normal Respiratory: normal vascular breathing on auscultation without any wheezes, stridor, rhonchi GI: Abdomen soft, nontender, nondistended, normoactive bowel sounds present all 4 quadrants, Neuro: intact cranial nerves motor and sensory and cerebellar/coordination function without any focal neurological deficit Behavior: Appropriate and cooperative Extremities: Adequate palpable pulses, Left leg edema and erythema, Left foot in dressing did not visualize wound but reviewed pictures - please see pictures in chart. Data 10/04/25 03:41 10/04/25 03:41 Micro: Microbiology 10/02/25 19:12 Blood Culture - Preliminary Blood NEGATIVE TO DATE 10/02/25 19:11 Blood Culture - Preliminary Blood NEGATIVE TO DATE A&P Assessment and plan 1. Risk for falls: 2. Bleeding from surgical wound: 3. Fall: 4. Osteomyelitis of foot: 5. Diabetic neuropathy: 6. Diabetes mellitus: 7. CKD stage 3a, GFR 45-59 ml/min: 8. Noncompliance: 9. Essential (primary) hypertension: 10. Cellulitis of foot, left: Plan: Dehiscence left foot surgical incision Falls and risk of falls Non-compliance with prescribed weight bearing - Consultation and Management with Shop Estimator - Fall Precautions - Multi-modal pain control - NPO midnight with surgical interventions tentatively planned for the a.m. - CXR: No acute cardiopulmonary abnormality, EKG: Sinus rhythm, VR 62, OK 198, QTC 412 - Non-weight bearing Left leg - PT/OT evaluation and recommendations appreciated Osteomyelitis Cellulitis - Prior consultation and mangement Per - IV Daptomyucin 8mg/kg q24hr through 10/29/25 - PICC line confirmed in approrpate position, continue IV antibotics as previously prescribed - 10/02 repeat blood cultures x 2 NGTD DM-II Diabetic Neuropathy - A1C 6.3 - Medium sliding scale insulin, POC - ADA diet when resumbed - Long acting insulin 33u nightly (hold until after procedure tomorrow) reduced dosing to 20u nightly and will increase as tolerated - Hold Trulicity Essential hypertension - Blood pressure 132/62 - Continue home medication lisinopril 40mg PO Daily, Hydralazine 25mg PO TID, Metoprolol 50mg PO Daily - PRN IV hydralazine for SBP >180 Hyperlipidemia - Triglyceride 287, cholesterol 153, LDL 75, HDL 21 - Continue Fenofibrate 145mg PO Daily, ASA 81mg PO Daily Chronic kidney disease stage III - Baseline Cr around 1.2, Cr currently 1.7 - Renally dose medications and avoid nephrotoxic agents Obesity - BMI 36.9 - Lifestyle modifications and weight loss advised Sleep apnea - Continue supportive care, as needed oxygen Insomnia - Continue PRN hydroxyzine 50mg Nightly Depression/Anxiety - Stable - Continue Doxepin 200mg PO nightly VTE PPX: SQ lovenox GI PPX: PPI Code Status: Full Code PDMP PDMP Reviewed: Last Reviewed 10/02/25 19:05 by Serene Mcdonnell, TRAVEL PHYSICAL THERAPIST Attestations 2 Medical Necessity Statement*: Patient continues inpatient due to worsening infection, continued need for surgical interventions, continue IV antibiotic therapy, pain control, and complex medical management. Coding Level of Care Code 65810 Diagnoses Risk for falls Z91.81 Bleeding from surgical wound Fall W19.XXXA Osteomyelitis of foot M86.9 Diabetic neuropathy E11.40 Diabetes mellitus E11.9 CKD stage 3a, GFR 45-59 ml/min N18.31 Noncompliance Z91.199 Essential (primary) hypertension I10 Cellulitis of foot, left L03.116
[2025-10-04] MEDS: HYDROcodone-acetaminophen 5-325 mg Tablet 1 TAB PO ×2 (08:04→12:47)
--- NOTE | 2025-10-04 08:35 | P.CONIM_ITS ---
Providers/Reason For Consult 2 Consulting Physician/Specialty*: Ernesto Cali D.P.M./podiatry Reason for Consult*: Postoperative dehiscence with hematoma left foot Attending Physician: Serene Mcdonnell NP Primary Care Provider: Tito Puentes MD History of Present Illness History of Present Illness his is an established 55 year old male patient presenting to clinic for a post operative follow up after a Left transmetatarsal amputation DOS: 09/25/25. Patient states he has not been able to be compliant with weightbearing status being able to take care of needs around the house he is unable to be strict nonweightbearing states he has been walking on the left foot with a cast since the time of surgery and admits that he has jeopardized his recovery. He is requesting admission to the hospital and placement to longterm in order to facilitate healing environment. He was in the emergency department last night, unfortunately I was not contacted as the surgeon, he had went in to the emergency department after a fall and was experiencing bleeding of the left lower extremity. States he has fallen 3 times, the last time he fell was last night and he went to the ER because he was bleeding at the left foot and was also bleeding at the PICC line dressing. Reports that his home is not wheelchair accessible and that he lives up 2 flights of stairs. Review of Systems 2 General: Reports: 10 or more systems reviewed and unremarkable except in HPI and below Const: Denies: fever(s) or chills Eyes: Denies: change in vision Card: Denies: chest pain or palpitations Resp: Denies: dyspnea or productive cough GI: Denies: abdominal pain, nausea or vomiting : Denies: flank pain Musc: Reports: extremity swelling, joint stiffness and deformity Skin/Breast: Reports: erythema, sores, changes in skin color, dry skin, nail changes and change in hair Neuro: Reports: numbness in extremities, sensory changes and difficulty walking Psych: Denies: suicidal ideation Endo: Denies: change in body appearance North/Lymph: Denies: tender lymph nodes Medications/Allergies Home Medications ?Medication ?Instructions ?Recorded ?Confirmed ?Last Taken ?Type Toe Filler #1 ea 09/12/22 10/03/25 Unkn own Rx cam walker #1 ea 03/27/24 10/03/25 Unkn own Rx hydrocodone 10 mg-acetaminophen 1 tab PO Q6H PRN Pain 09/22/24 10/03/25 10/02/25 12:30 History 325 mg tablet Diabetic Shoes with toe filler to #1 ea 10/28/2409/15 Unknown Rx left and right Blood Glucose Meter #1 ea 01/23/25 10/03/25 Unkn own Rx Blood Glucose Test Strips #100 ea 01/23/25 10/03/25 Un known Rx blood-glucose,journeyman molder,cont #1 ea 02/11/25 10/03/25 Un known Rx (Dexcom G7 Fish Peddler) doxepin 100 mg capsule 200 mg (2 x 100 mg) PO BEDTI ME #60 03/26/25 10/03/25 09/30/25 19:00 Rx caps blood-glucose sensor (Dexcom G7 #9 ea 05/04/25 5 Unknown Rx Sensor device) pen needle, diabetic 32 gauge x #100 ea 05/07/2510/03 Unknown Rx (TechLITE Pen Needle) metoprolol succinate 50 mg 50 mg PO BEDTIME #90 tabs 0 07/13/25 10/03/25 09/30/25 Rx tablet,extended release 24 hr aspirin 81 mg tablet,delayed 81 mg PO DAILY #90 tabs 1 10/03/25 09/30/25 Rx release lisinopril 40 mg tablet 40 mg PO DAILY #90 tabs 07/1510/03/25 10/02/25 Rx insulin glargine 100 unit/mL (3 33 unit SUBCUT BEDTIME 08/17/25 10/03/25 09/30/25 20:00 History mL) subcutaneous pen (Lantus Solostar U-100 Insulin) hydroxyzine HCl 50 mg tablet 50 mg PO QID PRN insomnia #120 tabs 08/20/25 10/03/25 09/30/25 Rx fenofibrate nanocrystallized 145 145 mg PO DAILY #90 t abs 09/07/25 10/03/25 09/30/25 Rx mg tablet prednisolone acetate 1 % eye 1 drp ophthalmic (eye) QI D 09/24/25 10/03/25 Unknown History drops,suspension daptomycin 1,000 mg/100 mL in 0.9 974 mg (97.4 mL) IV Q24H 32 days 09/28/25 10/03/25 Unknown Rx % sodium chlor intravenous piggyback hydralazine 25 mg tablet 25 mg PO TID 90 days #270 ta bs 09/28/25 10/03/25 09/30/25 Rx dulaglutide 0.75 mg/0.5 mL 0.75 mg (0.5 mL) SUBCUT Q7D #2 mL 10/01/25 10/03/25 Unknown Rx subcutaneous pen injector (Trulicity) insulin lispro 100 unit/mL 20 unit SUBCUT TID PRN bloo d sugar 10/03/25 10/03/25 09/30/25 History subcutaneous pen Allergies Allergy/AdvReac Type Severity Reaction Status Date / Time No Known Allergies Allergy Verified 10/02/25 14:34 Current Medications Generic Name Dose Route Start Last Admin Trade Name Freq PRN Reason Stop Dose Admin Hydrocodone Bitart/Acetaminophen 1 tab 10/02/25 16:51 10/04/25 08:04 Hydrocodone-Acetaminophen 5-325 Mg Tablet PO 1 tab Q4H PRN Administration MODERATE TO SEVERE PAIN Aspirin 81 mg 10/04/25 05:00 10/04/25 04:35 Aspirin 81 Mg Ec Tablet PO 81 mg DAILY ELISE Administration Docusate Sodium 100 mg 10/02/25 17:00 10/04/25 04:35 Docusate Sodium 100 Mg Capsule PO 100 mg BID ELISE Administration Doxepin HCl 200 mg 10/03/25 21:00 10/03/25 20:18 Doxepin 50 Mg Capsule PO 200 mg BEDTIME ELISE Administration Enoxaparin Sodium 40 mg 10/02/25 17:00 10/03/25 15:54 Enoxaparin 40 Mg/0.4 Ml Syringe SUBCUT 40 mg Q24H ELISE Administration Fenofibrate 145 mg 10/04/25 05:00 10/04/25 04:34 Fenofibrate 145 Mg Tablet PO 145 mg DAILY ELISE Administration Hydralazine HCl 10 mg 10/02/25 18:58 10/03/25 08:32 Hydralazine 20 Mg/Ml Inj 1 Ml IVP 10 mg Q4H PRN Administration HYPERTENSION Hydralazine HCl 25 mg 10/03/25 13:00 10/04/25 04:34 Hydralazine 25 Mg Tablet PO 25 mg TID ELISE Administration Hydroxyzine Pamoate 50 mg 10/03/25 13:01 10/03/25 15:52 Hydroxyzine 25 Mg Capsule PO 50 mg QID PRN Administration insomnia Daptomycin 950 mg/ Sodium 100 mls @ 100 mls/hr 10/02/25 19:00 10/03/25 18:42 Chloride IV Infused Q24H ELISE Infusion Protocol Insulin Glargine 20 unit 10/03/25 21:00 10/03/25 20:17 Insulin Glargine 100 Units/1 Ml SUBCUT 20 unit BEDTIME ELISE Administration Insulin Human Lispro 0 unit 10/02/25 18:00 10/04/25 08:04 Insulin Lispro 100 Unit/1 Ml SUBCUT 6 unit WM&BEDTIME ELISE Administration Protocol Lactobacillus Acidophilus 1 tab 10/03/25 17:00 10/04/25 04:34 Lactobacillus 1 Tablet PO 1 tab BID ELISE Administration Lisinopril 40 mg 10/04/25 05:00 10/04/25 04:35 Lisinopril 20 Mg Tablet PO 40 mg DAILY ELISE Administration Metoprolol Succinate 50 mg 10/03/25 21:00 10/03/25 20:18 Metoprolol Succinate Er (24 Hr) 50 Mg Tablet PO 50 mg BEDTIME ELISE Administration Pantoprazole Sodium 40 mg 10/03/25 05:00 10/04/25 04:[address] 40 Mg Tablet PO 40 mg DAILY ELISE Administration PFSH Acute 2 PFSH: Medical History (Updated 10/04/25 @ 08:38 by Ernesto Cali DPM) Cellulitis of right foot Psychiatric care History of nonmelanoma skin cancer History of malignant melanoma Chronic pain in right foot Diabetes mellitus with polyneuropathy Cellulitis and abscess of right lower extremity Non-pressure chronic ulcer of other part of right foot with necrosis of bone Dyslipidemia Acute renal failure Cellulitis of leg, right Hallux rigidus, right foot Sleep apnea in adult Restless leg syndrome Dyslipidemia Encounter for long-term use of opiate analgesic Shoulder pain Diverticulosis Type 2 diabetes mellitus with other diabetic neurological complication Essential (primary) hypertension CHF (congestive heart failure) Amputated great toe Wound dehiscence, surgical Surgical History History of amputation of right great toe History of amputation of left great toe History of colonoscopy 2018 History of inguinal hernia repair, bilateral 1970,1977 History of ankle surgery Hx of amputation of lesser toe Left foot big toe and second toe 01/21/20 at [facility] Dr. Leal Status post PICC central line placement H/O hernia repair History of amputation of lesser toe of right foot Family History Mother Cancer Other Dyslipidemia Denies family history of Diabetes CAD (coronary artery disease) Clotting disorder Dementia Hyperlipidemia Psychiatric illness Chronic kidney disease (CKD) Suicide Anesthesia complication Bleeding disorder Family history of premature coronary artery disease Lung disease Hypertension Stroke Social History Smoking and tobacco/nicotine status: never used tobacco/nicotine Second hand smoke exposure: Yes Alcohol intake: current Alcohol intake frequency: holidays/special occasions only Substance/Drug Use: former Date of last use: 2012 Former substance use details: Previously used meth and weed Additional social history: Patient wants full code as discussed with Jewel Prasad MD on 09/23/2025 patient is retired or disabled from [employer] working in [employer]. Jacobo his cousin lives with him and Awa Glaser who lives in [place] is his next of kin if he is unable to make decisions. 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 history: [employer]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 Pets and animals: Yes (Sassy) Pets & animals: dog(s) Leisure activites: games and other Leisure activities details: watch TV Sexually active: No Do you think of yourself as: Straight/Heterosexual Current gender identity: Male Yolande/Yarsanism: None Special yolande needs: No Agree to transfusion: Yes Vitals/I&O/Wt Last Vital Signs Temp 98.2 F 10/04/25 06:57 Pulse 62 10/04/25 06:57 Resp 17 10/04/25 06:57 BP 170/85 10/04/25 06:57 Pulse Ox 97 10/04/25 06:57 O2 Del Method Room Air 10/04/25 06:57 10/03/25 10/04/25 10/04/25 22:59 06:59 14:59 Intake Total 580 / 1420 120 / 1540 Output Total 450 / 1450 Balance 130 / -30 120 / 90 Weight last 48 hrs Weight 261 lb 3 oz Weight 261 lb 3 oz Weight 260 lb 9.382 oz Weight 257 lb Physical Exam 2 Narrative: GENERAL: Patient is alert and oriented ?3 and in no acute distress. The following is a focused left lower extremity exam. VASCULAR: Dorsalis pedis and posterior tibial arteries palpable. Capillary refill time less than 3 seconds to the TMA stump left foot. Calf is supple and nontender proximally and distally. Edema to the left forefoot. NEUROLOGICAL: Protective sensation absent to the lower extremities. DERMATOLOGICAL: Dehiscence of left transmetatarsal amputation site with several lanny pulled through 1 margin of skin, sloughing of skin and erythema to the dorsum of the left foot there is no proximal lymphangitic streaking, no purulence expressed from the dehiscence, no active bleeding. Maceration of skin at the inferior portion of the TMA stump. MUSCULOSKELETAL: Status post left transmetatarsal amputation. Data 10/04/25 03:41 10/04/25 03:41 Micro: Microbiology 10/02/25 19:12 Blood Culture - Preliminary Blood NEGATIVE TO DATE 10/02/25 19:11 Blood Culture - Preliminary Blood NEGATIVE TO DATE A&P Assessment and plan 1. Type 2 diabetes mellitus with other diabetic neurological complication: 2. Cellulitis of foot, left: 3. Hematoma of left foot: Plan: 55-year-old male presents with dehiscence of left transmetatarsal amputation stump, hematoma and cellulitis left foot. N.p.o. since midnight Scheduled for surgical I&D and delayed closure this a.m. 10/04/2025 strict nonweightbearing left foot Recommend exploring options for prison facility transfer after this hospitalization. PDMP PDMP Reviewed: Not Reviewed Coding Level of Care Code Acute Code for Chg Fwd Diagnoses Type 2 diabetes mellitus with other diabetic neurological complication E11.49 Cellulitis of foot, left L03.116 Hematoma of left foot S90.32XA
--- NOTE | 2025-10-04 08:43 | P.HPUD_ITS ---
Surgery/Procedure H&P Update DATE OF PROCEDURE: October 04, 2025 DATE H&P PERFORMED: 10/02/25 H&P UPDATE INFORMATION: I have reviewed H&P completed within last 30 days, I have examined patient prior to procedure, No changes to prior documentation, H&P is in [facility] EMR on date indicated and Risks and benefits of the procedure reviewed PREOP DIAGNOSIS: Hematoma and amputation stump dehiscence left foot PLANNED PROCEDURE: Operation Date: 10/04/25 10:00 Proposed Procedures p Incision And Drainage(Left) - Ernesto Cali DPM
--- NOTE | 2025-10-04 11:03 | W.PM.BPON ---
Date of Procedure: 12/28/23 Surgeon: Ernesto Cali DPM Professional Wrestler(s): Tracey Procedure(s) performed: Delayed closure left foot. Findings of the procedure(s): Hematoma left foot with surgical site dehiscence of transmetatarsal amputation stump. Estimated blood loss: 15 mL Specimen(s) removed: No specimens, patient has been on therapeutic antibiotics and cultures previously taken. Post-operative diagnosis: Hematoma, cellulitis and surgical site dehiscence of transmetatarsal amputation stump of left foot.
--- NOTE | 2025-10-04 11:07 | PM.OP ---
Operative Report Date of procedure: October 04, 2025 Pre-op diagnosis: Dehiscence of amputation stump left foot. Cellulitis left foot. Hematoma left foot. Post-op diagnosis: Same Post-op findings: Hematoma left foot with dehiscence of transmetatarsal amputation stump. Procedure done: Delayed closure left foot. CPT code 81496 Implants: 2-0 Vicryl, 3-0 Vicryl, skin lanny Specimens removed/disposition: None Pathology: None Surgeon: Ernesto Cali DPM Laborer Vegetable Farm: Tracey Estimated blood loss: 15 See intraoperative documentation IV fluids: See intraoperative documentation Urine output: no urine output Complications: No complications Findings: Hematoma left foot with dehiscence of transmetatarsal amputation site. Brief History: Patient is status post left transmetatarsal amputation DOS: 09/25/25 secondary to osteomyelitis. Patient states he has not been able to be compliant with weightbearing status being able to take care of needs around the house he is unable to be strict nonweightbearing states he has been walking on the left foot with a cast since the time of surgery and admits that he has jeopardized his recovery. He is requesting admission to the hospital and placement to [facility] [facility] in order to facilitate healing environment. He was in the emergency department last night, unfortunately I was not contacted as the surgeon, he had went in to the emergency department after a fall and was experiencing bleeding of the left lower extremity. States he has fallen 3 times, the last time he fell was last night and he went to the ER because he was bleeding at the left foot and was also bleeding at the PICC line dressing. Reports that his home is not wheelchair accessible and that he lives up 2 flights of stairs. Procedure: Under mild sedation the patient was brought to the operating room and remained on the gurney in supine position. A timeout was performed. Anesthesia was then administered by the anesthesia service. Well-padded pneumatic tourniquet applied to the patient's left ankle. The left lower extremity was scrubbed, prepped and draped utilizing normal aseptic technique. Left lower extremity was elevated and tourniquet was then inflated to 250 mmHg. Attention was directed to the left transmetatarsal potation stump which noted dehiscence was appreciated, several skin lanny had pulled through, all lanny were removed, full-thickness dehiscence was appreciated with pull-through of absorbable suture, all Vicryl that had failed or pulled through was removed and passed from the operative field. Dissection down into the amputation stump yielded a impressive hematoma this was evacuated with curettage and Irrisept irrigation approximately 25 milliliter ematoma was evacuated from the amp amputation site of the left forefoot. The incision was irrigated and debrided of all devitalized soft tissue consisting of epidermis, dermis, subcutaneous tissue down to myofascial layer. Able to visualize cuneiforms and fourth metatarsal which appeared viable. All bleeders were ligated and cauterized as necessary. After further irrigation the incision was reapproximated with myofascial layer reapproximated with 2-0 Vicryl, subcutaneous tissue with 3-0 Vicryl and skin with lanny. The incision was then dressed with Xeroform, sterile 4 x 4 gauze, Kerlix and Juan wrap. Tourniquet was deflated and a prompt hyperemic response is noted to the TMA stump distally at the left lower extremity. Patient tolerated the procedure and anesthesia well and was transferred to the PACU with vital signs stable and vascular status intact. Following a period of postoperative monitoring to be transferred back to the floor. Advise strict nonweightbearing. Recommended [facility] facility transfer should this be an option with insurance.
[2025-10-04] MEDS: DAPTOMYCIN IV (17:27)
[2025-10-04] MEDS: SODIUM CHLORIDE 0.9% IV (17:27)
[2025-10-04] MEDS: metoprolol succinate ER (24 HR) 50 mg Tablet PO (21:41)
[2025-10-04] MEDS: insulin glargine 100 units/1 mL 20 UNIT SUBCUT (21:42)
[2025-10-05] VITALS: BP 142/66; PULSE 77; RESP 19; TEMP 36.9; O2SAT 93
[2025-10-05 04:00] VITALS: BP 172/73; PULSE 67; RESP 20; TEMP 37.2; O2SAT 95
[2025-10-05 05:23] LABS: Hematocrit 36.5 % (37-53); Hemoglobin 11.40 g/dL (11.27-16.99); Mean Corpuscular HGB Conc 31.2 g/dL (30-55); Mean Corpuscular Hemoglobin 27.0 pg (27-33); Mean Corpuscular Volume 86.3 fl (82-101); Nucleated Red Blood Cells % 0 %; Platelet Count 343 10^3/cmm (157-399); Red Blood Count 4.23 10^6/uL (3.85-5.65); White Blood Count 9.37 10^3/uL (3.29-11.43)
[2025-10-05] MEDS: HYDROcodone-acetaminophen 5-325 mg Tablet 1 TAB PO ×2 (05:52→11:53)
[2025-10-05 05:53] LABS: Alanine Aminotransferase 19 U/L (0-41); Albumin Level 3.8 g/dL (3.5-5.2); Alkaline Phosphatase 40 U/L (40-130); Anion Gap 13.5 (5-19); Aspartate Amino Transferase 14 U/L (0-40); Blood Urea Nitrogen 25 mg/dL (6-20); Calcium 9.0 mg/dL (8.5-10.5); Carbon Dioxide 23 mmol/L (22-29); Chloride 104 mmol/L (98-107); Globulin 2.9 g/dL (1.3-4.6); Glucose 173 mg/dL (65-115); Magnesium 2.0 mg/dL (1.7-2.3); Osmolality Calculated 291 mOsm/kg (285-295); Potassium 4.5 mmol/L (3.5-5.1); Sodium 136 mmol/L (136-145); Total Protein 6.7 g/dL (6.6-8.7)
[2025-10-05] MEDS: lactobacillus 1 Tablet 1 TAB PO (05:54)
[2025-10-05 07:24] VITALS: BP 126/62; PULSE 62; RESP 18; TEMP 37.2; O2SAT 96
--- NOTE | 2025-10-05 08:12 | P.PN_ITS ---
Subjective 2 Subjective: Patient resting in bed on room air, no family noted to be at bedside during my evaluation. Patient reports 6/10 on pain scale, nurse notified. Discussions of plan of care included scheduled Physical Therapy and Occupational Therapy evaluation today. Possible discharge for tomorrow pending PT recommendations. Working with case management on discharge options. Vital signs and labs reviewed. All questions and concerns answered at bedside. Medications: Reviewed: Yes Vitals/I&O/Wt Last Vital Signs Temp 99.0 F 10/05/25 07:24 Pulse 62 10/05/25 07:24 Resp 18 10/05/25 07:24 BP 126/62 10/05/25 07:24 Pulse Ox 96 10/05/25 07:24 O2 Del Method Room Air 10/05/25 07:24 10/04/25 10/05/25 10/05/25 22:59 06:59 14:59 Intake Total 480 / 1010 100 / 1110 Output Total 700 / 1015 500 / 1515 Balance -220 / -5 -400 / -405 Weight last 48 hrs Weight 116 kg Weight 118.473 kg Weight 118.473 kg Physical Exam 2 Narrative: General: Alert and oriented, sitting up in bed with mild left leg/foot pain but in NAD. Cardio: NSR, normal S1-S2 w/o any murmurs, rubs, or gallops and JVD normal Respiratory: Clear to bilateral upper and lower lobes on auscultation GI: Abdomen soft, nontender, nondistended, bowel sounds present Behavior: Appropriate and cooperative Extremities: Adequate palpable pulses, Left leg edema and erythema. Left foot in dressing placed by Dr. Cali, was unable to visualize wound. Data 10/05/25 05:13 10/05/25 05:13 A&P Assessment and plan 1. Risk for falls: 2. Bleeding from surgical wound: 3. Fall: 4. Osteomyelitis of foot: 5. Diabetic neuropathy: 6. Diabetes mellitus: 7. CKD stage 3a, GFR 45-59 ml/min: 8. Noncompliance: 9. Essential (primary) hypertension: 10. Cellulitis of foot, left: Plan: Dehiscence left foot surgical incision Falls and risk of falls Non-compliance with prescribed weight bearing - Consultation and Management with Supervisor Fertilizer - Fall Precautions - Multi-modal pain control - 10/02: CXR: No acute cardiopulmonary abnormality, 10/02: EKG: Sinus rhythm, VR 62, NH 198, QTC 412 - Non-weight bearing Left leg - PT/OT evaluation and recommendations appreciated Osteomyelitis Cellulitis - Prior consultation and mangement Per - IV Daptomyucin 8mg/kg q24hr through 10/29/25 - PICC line confirmed in approrpate position, continue IV antibotics as previously prescribed - 10/02 repeat blood cultures x 2 NGTD DM-II Diabetic Neuropathy - A1C 6.3 - Medium sliding scale insulin, POC - ADA diet when resumed - Long acting insulin reduced dosing to 20u nightly and will increase as tolerated - Hold Trulicity Essential hypertension - Blood pressure 132/62 - Continue home medication lisinopril 40mg PO Daily, Hydralazine 25mg PO TID, Metoprolol 50mg PO Daily - PRN IV hydralazine for SBP >180 Hyperlipidemia - Triglyceride 287, cholesterol 153, LDL 75, HDL 21 - Continue Fenofibrate 145mg PO Daily, ASA 81mg PO Daily - f/u with PCP Chronic kidney disease stage III - Baseline Cr around 1.2, 10/05: Cr improving- 1.4 - Renally dose medications and avoid nephrotoxic agents Obesity - BMI 36.9 - Lifestyle modifications and weight loss advised Sleep apnea - Continue supportive care, as needed oxygen Insomnia - Continue PRN hydroxyzine 50mg Nightly Depression/Anxiety - Stable - Continue Doxepin 200mg PO nightly VTE PPX: SQ lovenox GI PPX: PPI Code Status: Full Code PDMP PDMP Reviewed: Not Reviewed Attestations 2 Medical Necessity Statement*: Patient continues inpatient due to worsening infection, post-op surgical interventions, continuation of IV antibiotic therapy, pain control, and complex medical management. Coding Level of Care Code 63030 Diagnoses Risk for falls Z91.81 Bleeding from surgical wound Fall W19.XXXA Osteomyelitis of foot M86.9 Diabetic neuropathy E11.40 Diabetes mellitus E11.9 CKD stage 3a, GFR 45-59 ml/min N18.31 Noncompliance Z91.199 Essential (primary) hypertension I10 Cellulitis of foot, left L03.116
--- NOTE | 2025-10-05 10:04 | PC.CHAP ---
Pastoral Care Encounter/Spiritual Assessment Type of Contact [] Declined retail district manager visit [] Patient/Family/Request visit [] Outpatient visit [] Follow-up visit [] Physician referral [] Code/Alert [x] Routine visit [] Staff referral [] Actively dying [] Patient sleeping [] Family support [] [] Out of room [] Palliative care [] [] Receiving care in room [] Pre-surgical visit [] Trauma [] Long length of stay [] ICU visit [] Other: Relational/Emotional Strength [x] Patient feels connected with others/family/visitors/staff [] Distress [] Loneliness/isolation [] Abandonment Spirituality of Patient [x] Person of Yolande [] Attends Restorationism of their Yolaned [x] Believes in Prayer [] Reads Bible or Yazidi materials [] There are Spiritual issues to be addressed Furnace Brazer Interventions [x] Prayer [x] Active listening [x] Non-anxious presence [x] Spiritual/emotional support [] Crisis/trauma care [] Spiritual counseling [] Bereavement support [] Provided bereavement packet [] Provided Bible/devotional materials [] Provided toy/stuffed animal, coloring book to patient or family member [] Provided Communion [] Anointing/[place] [] Salvation [x] Completed spiritual assessment [] Other: Impact on Illness or Injury [] Angry [] Fearful [] Anxious [] Often cries [] Exhaustion [] Unable to work [] Unable to attend scientologist [] Unable to walk/stand [] Unable to read [] Unable to drive [] Unable to eat/drink [] Unable to sleep [] Unable to be with family [] Patient intubated [] Other: Summary Time spent with patient 5 min
[2025-10-05 11:04] VITALS: BP 133/69; PULSE 70; RESP 18; TEMP 37.1; O2SAT 92
--- NOTE | 2025-10-05 12:04 | P.DS_ITS ---
Discharge Providers Date of Admission: 10/02/25 15:41 Date of Discharge: October 05, 2025 Attending Provider at Admission: Nitish Alvarado Attending Provider at Discharge: Natalie Hdez NP Primary Care Provider: Tito Puentes MD Diagnoses at Discharge Discharge Diagnosis 1. Risk for falls: 2. Bleeding from surgical wound: 3. Fall: 4. Osteomyelitis of foot: 5. Diabetic neuropathy: 6. Diabetes mellitus: 7. CKD stage 3a, GFR 45-59 ml/min: 8. Noncompliance: 9. Essential (primary) hypertension: 10. Cellulitis of foot, left: Reason for Visit Reason for Visit: Wound Dehiscense IV antibiotics Brief History: Admission: Braxton Rosales is a 55 year old male diabetes mellitus type 2, diabetic neuropathy, chronic kidney disease stage III, recurrent diabetic foot ulcers with bilateral toe amputations of all digits on both feet. Patient recently underwent partial Lisfranc capitation of left foot with findings of osteomyelitis of left first, second and third metatarsal with Animal Biologist 09/25/25 and continued IV antibiotics with management per because osteomyelitis of proximal extension could not be ruled out. Patient has been on Daptomcin 8mg/kg every 24hr with EOT on 10/29/25. However, patient returned to 's office today stating that he has not been compliant with his strict non-weight bearing status at home because he cares for himself and can't take care of himself without putting weight on his left foot. Patient states he has lost his balance and fallen 3 times since discharging home, this last fall causing his left foot to bleed and PICC line to bleed. CXR today confirms left PICC line catheter tip projects near the atrial caval junction. Per 's note patient's home is not wheelchair accessible and he lives up 2 flight of stairs. Patient is admitted with dehiscence of left foot surgical site, will need to return to the OR tomorrow morning, worsening cellulitis even in the presence of IV antibiotic therapy, and evaluation for group home placement. Patient endorses intermittent diarrhea, states this has been this way since he is on antibiotics, bleeding on his left foot and at his PICC line site, and pain in leg 04/23. Patient denies chest pain, shortness of breath, nausea, vomiting, abdominal pain, dark or tarry stools, fever, or syncope. Admitting VS elevated blood pressure 175/78, pulse 66, respiration 16, temperature 98.3, O2 sat 94% on room air. Fingerstick glucose 186. Hospital Course Hospital Course Dehiscence left foot surgical incision Falls and risk of falls Non-compliance with prescribed weight bearing - Consultation and Management with Animal Biologist - Fall Precautions - Multi-modal pain control - 10/02: CXR: No acute cardiopulmonary abnormality, 10/02: EKG: Sinus rhythm, VR 62, LA 198, QTC 412 - Non-weight bearing Left leg - PT/OT evaluation and recommendations appreciated Osteomyelitis Cellulitis - Prior consultation and mangement Per - IV Daptomyucin 8mg/kg q24hr through 10/29/25 - PICC line confirmed in approrpate position, continue IV antibotics as previously prescribed - 10/02 repeat blood cultures x 2 NGTD DM-II Diabetic Neuropathy - A1C 6.3 - Medium sliding scale insulin, POC - ADA diet when resumed - Long acting insulin reduced dosing to 20u nightly and will increase as tolerated - Hold Trulicity Essential hypertension - Blood pressure 132/62 - Continue home medication lisinopril 40mg PO Daily, Hydralazine 25mg PO TID, Metoprolol 50mg PO Daily - PRN IV hydralazine for SBP >180 Hyperlipidemia - Triglyceride 287, cholesterol 153, LDL 75, HDL 21 - Continue Fenofibrate 145mg PO Daily, ASA 81mg PO Daily - f/u with PCP Chronic kidney disease stage III - Baseline Cr around 1.2, 10/05: Cr improving- 1.4 - Renally dose medications and avoid nephrotoxic agents Obesity - BMI 36.9 - Lifestyle modifications and weight loss advised Sleep apnea - Continue supportive care, as needed oxygen Insomnia - Continue PRN hydroxyzine 50mg Nightly Depression/Anxiety - Stable - Continue Doxepin 200mg PO nightly Discharge: Patient presented to hospital with dehiscence of left transmetatarsal amputation stump, hematoma and cellulitis left foot. Patient underwent surgical I&D with strict nonweightbearing of the left foot orders. Patient refused discharge to SNF, he states I do not want to give up my check. His friend was noted at bedside to talk to states he will go stay with patient at home to give him more help. Patient received scheduled IV Daptomycin while inpatient per Dr. Graves's orders. Patient to discharge home with friend who is willing to help patient with ADLs. Pt to discharge with no new medication changes- continue home IV antibiotics of Daptomcin 8mg/kg every 24hr with EOT on 10/29/[address] Graves and infectious disease. I spoke with Dr. Cali this morning he is to place a cast this afternoon once placed patient can discharge home with friend. Physical Exam Narrative: General: Alert and oriented, sitting up in bed with mild left leg/foot pain but in NAD. Cardio: NSR, normal S1-S2 w/o any murmurs, rubs, or gallops and JVD normal Respiratory: Clear to bilateral upper and lower lobes on auscultation GI: Abdomen soft, nontender, nondistended, bowel sounds present Behavior: Appropriate and cooperative Extremities: Adequate palpable pulses, Left leg edema and erythema. Left foot in dressing placed by Dr. Cali, was unable to visualize wound. Discharge Data Studies Completed and Pending Completed Studies During Hospitalization Category Date Time Status XR chest 1V portable [id number] Routine Exams 10/02/25 16:51 Completed Pending at discharge Category Date Time Status Blood Culture Stat Lab 10/02/25 19:12 Results Urinalysis Routine Lab 10/02/25 16:56 Uncollected Radiology Impressions Chest X-Ray 10/02/25 16:51 IMPRESSION: No acute cardiopulmonary abnormality. Laboratory Results WBC 9.37 10^3/uL (3.29-11.43) 10/05/25 05:13 RBC 4.23 10^6/uL (3.85-5.65) 10/05/25 05:13 Hgb 11.40 g/dL (11.27-16.99) 10/05/25 05:13 Hct 36.5 % (37-53) L 10/05/25 05:13 MCV 86.3 fl (82-101) 10/05/25 05:13 MCH 27.0 pg (27-33) 10/05/25 05:13 MCHC 31.2 g/dL (30-55) 10/05/25 05:13 RDW 13.9 % (12.1-15.1) 10/05/25 05:13 Plt Count 343 10^3/cmm (157-399) 10/05/25 05:13 MPV 9.4 fL (7.4-10.4) 10/05/25 05:13 Neut % (Auto) 73.7 % 10/05/25 05:13 Lymph % (Auto) 15.6 % 10/05/25 05:13 [place] % (Auto) 5.9 % 10/05/25 05:13 Eos % (Auto) 3.4 % 10/05/25 05:13 Baso % (Auto) 0.7 % 10/05/25 05:13 Neut # (Auto) 6.90 10^3/uL (1.8-7.7) 10/05/25 05:13 Lymph # (Auto) 1.5 10^3/uL (0.8-4.8) 10/05/25 05:13 [place] # (Auto) 0.6 10^3/uL (0.2-0.9) 10/05/25 05:13 Eos # (Auto) 0.3 10^3/uL (0.0-0.8) 10/05/25 05:13 Baso # (Auto) 0.1 10^3/uL (0.0-0.1) 10/05/25 05:13 Nucleated RBC % (auto) 0 % 10/05/25 05:13 Nucleated RBCs # 0.0 /100WBC 10/05/25 05:13 Sodium 136 mmol/L (136-145) 10/05/25 05:13 Potassium 4.5 mmol/L (3.5-5.1) 10/05/25 05:13 Chloride 104 mmol/L (98-107) 10/05/25 05:13 Carbon Dioxide 23 mmol/L (22-29) 10/05/25 05:13 Anion Gap 13.5 (5-19) 10/05/25 05:13 BUN 25 mg/dL (6-20) H 10/05/25 05:13 Creatinine 1.4 mg/dL (0.7-1.2) H 10/05/25 05:13 GFR Calculation 52.2 mL/min (90-130) L 10/05/25 05:13 Glucose 173 mg/dL (65-115) H 10/05/25 05:13 POC Glucose 189 mg/dL (70-110) H 10/05/25 10:50 Estimat Average Glucose 134 10/03/25 04:28 Hemoglobin A1c 6.3 % (4.0-6.0) H 10/03/25 04:28 Calculated Osmolality 291 mOsm/kg (285-295) 10/05/25 05:13 Calcium 9.0 mg/dL (8.5-10.5) 10/05/25 05:13 Magnesium 2.0 mg/dL (1.7-2.3) 10/05/25 05:13 Total Bilirubin 0.3 mg/dL (0.15-1.2) 10/05/25 05:13 AST 14 U/L (0-40) 10/05/25 05:13 ALT 19 U/L (0-41) 10/05/25 05:13 Alkaline Phosphatase 40 U/L (40-130) 10/05/25 05:13 Total Protein 6.7 g/dL (6.6-8.7) 10/05/25 05:13 Albumin 3.8 g/dL (3.5-5.2) 10/05/25 05:13 Globulin 2.9 g/dL (1.3-4.6) 10/05/25 05:13 Triglycerides 287 mg/dL (0-150) H 10/03/25 04:28 Cholesterol 153 mg/dL (0-200) 10/03/25 04:28 LDL Cholesterol, Calc 75 mg/dL (50-129) 10/03/25 04:28 HDL Cholesterol 21 mg/dL (60-100) L 10/03/25 04:28 LDL/HDL Ratio 3.57 RATIO (0.00-3.22) H 10/03/25 04:28 Cholesterol/HDL Ratio 7.29 mg/dL (1.0-5.00) H 10/03/25 04:28 Vitals Last Vital Signs Temp 98.7 F 10/05/25 11:04 Pulse 70 10/05/25 11:04 Resp 18 10/05/25 11:04 BP 133/69 10/05/25 11:04 Pulse Ox 92 10/05/25 11:04 O2 Del Method Room Air 10/05/25 11:04 Discharge Plan Discharge Patient Disposition: Home Condition: Stable Prescriptions: Continued (DME) Toe Filler See Rx Instructions .Route .MEDSUPPLY Qty: 1 0RF Rx Instructions: As directed by Ying (DME) joel bolaños See Rx Instructions .Route .MEDSUPPLY Qty: 1 0RF Rx Instructions: As directed (DME) Diabetic Shoes with toe filler to left and right See Rx Instructions .Route .MEDSUPPLY Qty: 1 0RF Rx Instructions: Diabetic shoes made by the [employer] doxepin 100 mg capsule 200 mg PO BEDTIME Qty: 60 11RF (DME) Dexcom G7 Rock Singer Misc See Rx Instructions .ROUTE .MEDSUPPLY Qty: 1 0RF Rx Instructions: As directed hydroxyzine HCl 50 mg tablet 50 mg PO QID PRN (Reason: insomnia) Qty: 120 11RF (DME) Blood Glucose Meter See Rx Instructions .Route .MEDSUPPLY Qty: 1 1RF Rx Instructions: 3 times daily (DME) Blood Glucose Test Strips See Rx Instructions .Route .MEDSUPPLY Qty: 100 3RF Rx Instructions: 3 times daily (DME) Dexcom G7 Sensor Device See Rx Instructions .ROUTE .COMPLEX Qty: 9 1RF Dose Instruction: CHANGE EVERY 10 DAYS Rx Instructions: CHANGE EVERY 10 DAYS (DME) pen needle, diabetic [TechLITE Pen Needle] 32 gauge x 5/32 needle See Rx Instructions .ROUTE .COMPLEX Qty: 100 3RF Dose Instruction: FOR USE WITH INSULIN UP TO 5 TIMES DAILY Rx Instructions: FOR USE WITH INSULIN UP TO 5 TIMES DAILY aspirin 81 mg tablet,delayed release (DR/EC) 81 mg PO DAILY Qty: 90 1RF lisinopril 40 mg tablet 40 mg PO DAILY Qty: 90 2RF fenofibrate nanocrystallized 145 mg tablet 145 mg PO DAILY Qty: 90 0RF Trulicity 0.75 mg/0.5 mL pen injector 0.75 mg SUBCUT Q7D Qty: 2 0RF metoprolol succinate 50 mg tablet extended release 24 hr 50 mg PO BEDTIME Qty: 90 0RF insulin glargine [Lantus Solostar U-100 Insulin] 100 unit/mL (3 mL) insulin pen 33 unit SUBCUT BEDTIME Patient Comments: hydrocodone-acetaminophen 10-325 mg tablet 1 tab PO Q6H PRN (Reason: Pain) prednisolone acetate 1 % drops,suspension 1 drp ophthalmic (eye) QID hydralazine 25 mg Tablet 25 mg PO TID 90 Days Qty: 270 0RF daptomycin in 0.9 % sod chlor 1,000 mg/100 mL piggyback 974 mg IV Q24H 32 Days Rx Instructions: administer over 30 mins insulin lispro 100 unit/mL insulin pen 20 unit SUBCUT TID PRN (Reason: blood sugar ) Rx Instructions: INJECT 20 UNITS SUBCUTANEOUSLY THREE TIMES DAILY PER SLIDING SCALE. Discharge Order = DC NOW: Discharge Order (Routine); Ordered 10/05/25 Ordered By: Natalie Hdez Referrals: Ernesto Cali DPM [Physician, Podiatry] - 4-7 days Tito Puentes MD [Primary Care Provider, Family Practice] - 4-7 days Discharge Diet: Cardiac, Diabetic, Low Salt and Low Cholesterol Discharge Activity: As per PT/OT instructions Patient Instructions: Meal Planning with Diabetes Exchanges (DC), Acute Wound Care (DC), Fall Prevention (DC), How to Care for Your Midline Catheter (DC), Opioid Safety, Post Anesthesia Care, Patient Portal & [place] Instructions Activity Restrictions/Additional Instructions: Resume your IV antibiotics as previously. Follow-up with Dr. Graves and infectious disease clinic. Instructions from Dr. Cali/podiatry. Strict nonweightbearing left foot and elevate while resting. After this hospitalization planning on going to your friend's house Tim to help facilitate everyday living activities and facilitate nonweightbearing status and healing. Follow-up in podiatry clinic with Dr. Cali October 13, 2025 at 10:15 AM this will be just prior to your next infectious disease appointment. IV antibiotics as previously prescribed. Contact podiatry clinic with any questions or concerns [phone] Discharge Attestations Time Spent in Discharge Care*: greater than 30 min Status at Discharge: Cognitive status at discharge: cognitively intact , Behavioral status at discharge: cooperative , Quality Metrics Clinical Quality Measures [ No reported AMI, CVA or VTE this stay] Coding Level of Care Code 13573 Total time (in minutes) for Discharge: 35 Diagnoses Risk for falls Z91.81 Bleeding from surgical wound Fall W19.XXXA Osteomyelitis of foot M86.9 Diabetic neuropathy E11.40 Diabetes mellitus E11.22; N18.30 Chronic kidney disease stage: stage 3 (moderate) Chronic kidney disease stage 3 subtype: unspecified whether 3a or 3b Diabetes mellitus complication detail: with chronic kidney disease Diabetes mellitus complication status: with kidney complications Diabetes mellitus nursing home insulin use: unspecified joint terminal attack controller insulin use status Diabetes mellitus type: type 2 CKD stage 3a, GFR 45-59 ml/min N18.31 Noncompliance Z91.199 Essential (primary) hypertension I10 Cellulitis of foot, left L03.116
--- NOTE | 2025-10-05 12:41 | P.PN_ITS ---
Subjective 2 Subjective: Patient seen bedside this p.m., tolerating regular diet. Discharge planning. Vitals/I&O/Wt Last Vital Signs Temp 98.7 F 10/05/25 11:04 Pulse 70 10/05/25 11:04 Resp 18 10/05/25 11:04 BP 133/69 10/05/25 11:04 Pulse Ox 92 10/05/25 11:04 O2 Del Method Room Air 10/05/25 11:04 10/04/25 10/05/25 10/05/25 22:59 06:59 14:59 Intake Total 480 / 1010 100 / 1110 480 / 480 Output Total 700 / 1015 500 / 1515 Balance -220 / -5 -400 / -405 480 / 480 Weight last 48 hrs Weight 255 lb 11.779 oz Weight 261 lb 3 oz Weight 261 lb 3 oz Physical Exam 2 Narrative: GENERAL: Patient is alert and oriented ?3 and in no acute distress. The following is a focused left lower extremity exam. VASCULAR: Dorsalis pedis and posterior tibial arteries palpable. Capillary refill time less than 3 seconds to the TMA stump left foot. Calf is supple and nontender proximally and distally. Edema to the left forefoot. NEUROLOGICAL: Protective sensation absent to the lower extremities. DERMATOLOGICAL: Left foot surgical incision is well coapted. Resolved cellulitis left foot. No purulent drainage no open wound at this time. MUSCULOSKELETAL: Status post left transmetatarsal amputation. Data 10/05/25 05:13 10/05/25 05:13 A&P Assessment and plan 1. Type 2 diabetes mellitus with other diabetic neurological complication: 2. Cellulitis of foot, left: Resolved 3. Hematoma of left foot: Resolved Plan: 55-year-old male presents with dehiscence of left transmetatarsal amputation stump, hematoma and cellulitis left foot. -Cellulitis and hematoma resolved, 1 day status post I&D with delayed closure left foot date of operation 10/04/2025. -Doing well postoperatively, at this point discharge planning. Unable to obtain placement or rehab due to insurance. -He plans on being discharged to his friend's house Tim who will assist with everyday living to help facilitate nonweightbearing status. -Strict nonweightbearing left foot. -Currently has a PICC line and daptomycin recommendations from infectious disease once daily. Will continue with this. -Follow-up in podiatry clinic 10/13/2025 10:15 AM this is just prior to his infectious disease appointment. No further surgical intervention anticipated during this hospitalization, discharge planning at this point as above. Will follow-up outpatient. PDMP PDMP Reviewed: Not Reviewed Attestations 2 Medical Necessity Statement*: Deferred to primary Coding Level of Care Code Acute Code for Chg Fwd Diagnoses Type 2 diabetes mellitus with other diabetic neurological complication E11.49 Cellulitis of foot, left L03.116 Hematoma of left foot S90.32XA
[2025-10-05 15:03] VITALS: BP 133/69; PULSE 70; RESP 18; TEMP 37.1; O2SAT 92
== END 2025-10-05 14:55 | disposition home or self-care (01) | DRG 317 ==
PROVIDERS: Podiatrist Foot & Ankle Surgery; Registered Nurse; Admitting Provider Internal Medicine; PCP Family Medicine
PROC: 0Y9J0ZZ Drainage of Left Lower Leg, Open Approach (ICD-10-PCS; principal; 2025-10-04 09:50)
DX: T87.81 Dehiscence of amputation stump (principal); Y83.5 Amputation of limb(s) as the cause of abnormal reaction of the patient, or of later complication, without mention of misadventure at the time of the procedure; Z91.81 History of falling; M86.9 Osteomyelitis, unspecified; E11.22 Type 2 diabetes mellitus with diabetic chronic kidney disease; I13.0 Hypertensive heart and chronic kidney disease with heart failure and stage 1 through stage 4 chronic kidney disease, or unspecified chronic kidney disease; E11.40 Type 2 diabetes mellitus with diabetic neuropathy, unspecified; E11.69 Type 2 diabetes mellitus with other specified complication; N18.31 Chronic kidney disease, stage 3a; I50.9 Heart failure, unspecified; Z79.85 Long-term (current) use of injectable non-insulin antidiabetic drugs; Z79.4 Long term (current) use of insulin; Z91.199 Patient's noncompliance with other medical treatment and regimen due to unspecified reason; L03.116 Cellulitis of left lower limb; E78.5 Hyperlipidemia, unspecified; E66.9 Obesity, unspecified; Z68.36 Body mass index [BMI] 36.0-36.9, adult; G47.30 Sleep apnea, unspecified; G47.00 Insomnia, unspecified; F32.A Depression, unspecified; F41.9 Anxiety disorder, unspecified; T87.89 Other complications of amputation stump; R19.7 Diarrhea, unspecified; Z95.828 Presence of other vascular implants and grafts; Z79.2 Long term (current) use of antibiotics; Z79.82 Long term (current) use of aspirin; Z79.891 Long term (current) use of opiate analgesic
CPT/HCPCS: 36415; 36416; 71045; 80048; 80053; 80061; 82962; 83036; 83735; 85025; 87040; 93005; 96372; 97161; 97165; G0379; J0360; J0878; J1650; J1815; J2704; J3010; J9999

== ENCOUNTER 2025-10-13 11:00 | Oncology outpatient (recurring) (ONCR) | payer MEDICAID, SELFPAY ==
[2024-08-06 11:35] VITALS: BP 142/64; BMI 38.4
[2025-09-29 11:13] LABS: Hematocrit 36.2 % (37-53); Hemoglobin 12.00 g/dL (11.27-16.99); Mean Corpuscular HGB Conc 33.1 g/dL (30-55); Mean Corpuscular Hemoglobin 27.3 pg (27-33); Mean Corpuscular Volume 82.3 fl (82-101); Nucleated Red Blood Cells % 0 %; Platelet Count 345 10^3/cmm (157-399); Red Blood Count 4.40 10^6/uL (3.85-5.65); White Blood Count 8.61 10^3/uL (3.29-11.43)
[2025-09-29 11:37] LABS: Alanine Aminotransferase 36 U/L (0-41); Albumin Level 3.8 g/dL (3.5-5.2); Alkaline Phosphatase 41 U/L (40-130); Aspartate Amino Transferase 36 U/L (0-40); Globulin 3.1 g/dL (1.3-4.6); Total Protein 6.9 g/dL (6.6-8.7)
[2025-10-06 11:17] LABS: Hematocrit 35.7 % (37-53); Hemoglobin 11.80 g/dL (11.27-16.99); Mean Corpuscular HGB Conc 33.1 g/dL (30-55); Mean Corpuscular Hemoglobin 27.8 pg (27-33); Mean Corpuscular Volume 84.0 fl (82-101); Nucleated Red Blood Cells % 0 %; Platelet Count 359 10^3/cmm (157-399); Red Blood Count 4.25 10^6/uL (3.85-5.65); White Blood Count 12.57 10^3/uL (3.29-11.43)
[2025-10-06 11:37] LABS: Alanine Aminotransferase 20 U/L (0-41); Albumin Level 4.0 g/dL (3.5-5.2); Alkaline Phosphatase 43 U/L (40-130); Aspartate Amino Transferase 15 U/L (0-40); Globulin 3.3 g/dL (1.3-4.6); Total Protein 7.3 g/dL (6.6-8.7)
[2025-10-13 10:54] LABS: Hematocrit 37.8 % (37-53); Hemoglobin 12.20 g/dL (11.27-16.99); Mean Corpuscular HGB Conc 32.3 g/dL (30-55); Mean Corpuscular Hemoglobin 26.8 pg (27-33); Mean Corpuscular Volume 82.9 fl (82-101); Nucleated Red Blood Cells % 0 %; Platelet Count 438 10^3/cmm (157-399); Red Blood Count 4.56 10^6/uL (3.85-5.65); White Blood Count 8.37 10^3/uL (3.29-11.43)
== END 2025-10-14 23:59 | disposition home or self-care (01) ==
PROVIDERS: Student in an Organized Health Care Education/Training Program; PCP Family Medicine; Visit Provider Internal Medicine Medical Oncology
DX: M86.9 Osteomyelitis, unspecified; Z53.9 Procedure and treatment not carried out, unspecified reason; E11.49 Type 2 diabetes mellitus with other diabetic neurological complication; L03.116 Cellulitis of left lower limb; Z91.81 History of falling; Z79.4 Long term (current) use of insulin
CPT/HCPCS: 36592; 80076; 82550; 82565; 85025; 86140; 99213